=== PATIENT | male | born 1980 | race Caucasian/White ===

== ENCOUNTER 2019-05-27 05:29 | Inpatient (IN) | payer MEDICAID, OTHER ==
[~2019-05-27] VITALS: Ht 182.9 cm; Wt 158.0 kg
[2019-05-27] MEDS: PROPOFOL 100 ML IV PRN ×4 (07:30→23:55)
[2019-05-27] MEDS ORDERED: PROPOFOL 100 ML IV ONE ×2 (07:32→14:39)
[2019-05-27 08:05] LABS: FIO2 100 %
[2019-05-27 08:06] LABS: MEAN CORPUSCULAR HEMOGLOBIN 29.1 pg (27.5-34.5); MEAN CORPUSCULAR HGB CONC 31.4 g/dL (33.2-36.2); MEAN CORPUSCULAR VOLUME 92.5 fL (81-97); MEAN PLATELET VOLUME 9.2 fL (7.4-10.4); PLATELET COUNT 254 x10^3/uL (130-400); RED BLOOD COUNT 5.41 x10^6/uL (4.38-5.82); RED CELL DISTRIBUTION WIDTH 14.2 % (9.4-14.8)
[2019-05-27 08:20] LABS: ANION GAP 18 mmol/L (5-15); CALCIUM 9.4 mg/dL (8.5-10.1); CHLORIDE 102 mmol/L (98-107)
[2019-05-27 08:21] LABS: ALANINE AMINOTRANSFERASE 41 U/L (12-78); CREATININE 1.93 mg/dL (0.7-1.3)
[2019-05-27] MEDS ORDERED: MAGNESIUM SULFATE 1 GM/2 ML ONE (08:21)
[2019-05-27] MEDS ORDERED: SODIUM BICARB 8.4%, 50ML SYRINGE ONE ×3 (08:21→15:32)
[2019-05-27] MEDS ORDERED: EPINEPHRINE SYRINGE 0.1 MG/ML, 10ML ONE ×2 (08:21→15:32)
[2019-05-27 08:24] LABS: ALBUMIN 1.8 g/dL (3.4-5.0); ALKALINE PHOSPHATASE 248 U/L (45-117); BILIRUBIN,TOTAL 0.9 mg/dL (0.2-1.0); TOTAL PROTEIN 7.5 g/dL (6.4-8.2)
[2019-05-27] MEDS ORDERED: SODIUM BICARBONATE 8.4% 150 MEQ in DEXTROSE 5% 1,000 ML IV SCH ×2 (08:30→10:30)
[2019-05-27] MEDS ORDERED: MIDAZOLAM 1 MG/ML, 2ML IVPush ONE (08:30)
[2019-05-27] MEDS ORDERED: EPINEPHRINE 2 MG in SODIUM CHLORIDE 0.9% 248 ML IV PRN (08:30)
[2019-05-27] MEDS ORDERED: ROCURONIUM 10 MG/ML,10ML IVPush ONE (08:30)
[2019-05-27 08:35] LABS: MD YES
[2019-05-27 08:37] LABS: BAND#(MANUAL) 6.59 x10^3/uL; BANDS%(MANUAL) 18 % (0-7); LYMPH#(MANUAL) 2.93 x10^3/uL (1-3.4); LYMPHS% (MANUAL) 8 % (22-44); MONOS#(MANUAL) 1.46 x10^3/uL (0.3-2.7); MONOS% (MANUAL) 4 % (2-9); NRBC % (MANUAL) 3 % (0-1)
[2019-05-27 08:38] LABS: INTERNATIONAL NORMALIZED RATIO 1.08 (0.93-1.1); METAMYELOCYTES% (MANUAL) 1 % (0-1); PROTHROMBIN TIME 11.3 Seconds (9.6-11.5)
[2019-05-27 08:40] LABS: <PLATELET ESTIMATE> ADEQUATE; <PLT MORPHOLOGY> NORMAL PLT MORPH; OTHER CELLS # (MANUAL) 0.73 x10^3/uL (0-0); OTHER CELLS % (MANUAL) 2 % (0-0); SEGS% (MANUAL) 67 % (42-75)
[2019-05-27 08:41] LABS: <RBC MORPHOLOGY> NORMAL
[2019-05-27 08:57] LABS: MICROSCOPIC INDICATED
[2019-05-27] MEDS ORDERED: EPINEPHRINE 4 MG in SODIUM CHLORIDE 0.9% 246 ML IV PRN (09:00)
[2019-05-27] MEDS ORDERED: SODIUM CHLORIDE 0.9% 1,000ML IVBOLUS ONE (09:00)
[2019-05-27] MEDS ORDERED: VASOPRESSIN 100 UNIT in SODIUM CHLORIDE 0.9% 495 ML IV PRN (09:30)
[2019-05-27] MEDS ORDERED: NOREPINEPHRINE 4 MG in SODIUM CHLORIDE 0.9% 246 ML IV PRN (09:30)
[2019-05-27] MEDS ORDERED: EPINEPHRINE 8 MG in SODIUM CHLORIDE 0.9% 242 ML IV PRN (09:42)
[2019-05-27] MEDS ORDERED: PHARMACY MAY ADJ FOR RENAL FX MC PRN (10:00)
[2019-05-27] MEDS ORDERED: ENOXAPARIN 40 MG/0.4 ML SQ SCH (10:00)
[2019-05-27] MEDS ORDERED: MAGNESIUM SULFATE PMX 2GM/50ML 50 ML IV ONE ×2 (10:00→17:00)
[2019-05-27] MEDS ORDERED: MAGNESIUM SULFATE PMX 2GM/50ML 50 ML IVPB ONE (10:00)
[2019-05-27] MEDS ORDERED: PLEASE ENTER HEIGHT AND WEIGHT MC SCH (10:00)
[2019-05-27 10:43] LABS: ANION GAP 20 mmol/L (5-15); CALCIUM 9.1 mg/dL (8.5-10.1); CHLORIDE 102 mmol/L (98-107); CREATININE 2.37 mg/dL (0.7-1.3)
[2019-05-27 10:47] LABS: TROPONIN I 0.065 ng/mL (0.000-0.045)
[2019-05-27] MEDS: REGULAR INSULIN 62.5 UNITS in SODIUM CHLORIDE 0.9% 249.375 ML IV PRN ×3 (10:54→19:40)
[2019-05-27] MEDS ORDERED: KSCALE TO 4.5 IV SCH (11:00)
[2019-05-27] MEDS ORDERED: POTASSIUM CHLORIDE 40 MEQ in SODIUM CHLORIDE 0.9% 100 ML IV ONE ×2 (11:00→20:30)
[2019-05-27] MEDS: PIPERACILLIN/TAZO/PMX 3.375GM 50 ML IV SCH ×3 (11:04→21:59)
[2019-05-27] MEDS: STERILE WATER IV SCH ×2 (12:18→18:34)
[2019-05-27] MEDS: SODIUM BICARBONATE IV SCH ×2 (12:18→18:34)
[2019-05-27 12:28] LABS: AMPHETAMINE SCREEN, URINE Negative (Negative); BARBITURATE SCREEN, URINE Negative (Negative); BENZODIAZEPINE SCREEN, URINE Negative (Negative); CANNABINOID SCREEN, URINE Negative (Negative); COCAINE SCREEN, URINE Negative (Negative); METHADONE SCREEN, URINE Negative (Negative); OPIATE SCREEN, URINE Negative (Negative)
[2019-05-27] MEDS ORDERED: SODIUM CHLORIDE 0.9%, 500ML IVBOLUS ONE (12:30)
[2019-05-27] MEDS ORDERED: EPINEPHRINE 1 MG in SODIUM CHLORIDE 0.9% 249 ML IV PRN (13:54)
[2019-05-27] MEDS ORDERED: SENNA 176 MG/5 ML ORAL SOL NG PRN (14:00)
[2019-05-27] MEDS: KSCALE TO 4.5 IV SCH ×3 (14:00→22:00)
[2019-05-27] MEDS ORDERED: SENNA/DOCUSATE TABLET NG PRN (14:00)
[2019-05-27] MEDS ORDERED: HEPARIN 5,000 UNITS/ML, 1ML SQ SCH (14:00)
[2019-05-27] MEDS ORDERED: ALBUTEROL/IPRATROPIUM 2.5MG/0.5MG, 3 ML INLINE SCH (14:00)
[2019-05-27] MEDS ORDERED: PHARMACY MAY ADJ FOR RENAL FX MC SCH (14:00)
[2019-05-27] MEDS ORDERED: BISACODYL 10 MG SUPP PR PRN (14:00)
[2019-05-27] MEDS ORDERED: ACETAMINOPHEN 650 MG/20.3 ML UDC ONE (14:01)
[2019-05-27] MEDS: ACETAMINOPHEN 650 MG/20.3 ML UDC PO PRN (14:11)
[2019-05-27 14:28] LABS: ANION GAP 18 mmol/L (5-15); CALCIUM 9.2 mg/dL (8.5-10.1); CHLORIDE 102 mmol/L (98-107); CREATININE 2.97 mg/dL (0.7-1.3)
[2019-05-27 14:35] LABS: TRIGLYCERIDES 370 mg/dL (50-200)
[2019-05-27] MEDS ORDERED: SODIUM CHLORIDE 0.9% IV PRN (15:00)
[2019-05-27] MEDS ORDERED: EPINEPHRINE IV PRN (15:00)
[2019-05-27] MEDS: FAMOTIDINE 20 MG/2 ML IV SCH (15:23)
[2019-05-27] MEDS ORDERED: POTASSIUM CHLORIDE 30 MEQ in SODIUM CHLORIDE 0.9% 100 ML IV ONE (15:30)
[2019-05-27] MEDS ORDERED: ROCURONIUM 10MG/ML,5ML ONE (15:32)
[2019-05-27] MEDS ORDERED: MIDAZOLAM 1 MG/ML, 5ML ONE (15:32)
[2019-05-27 16:18] LABS: SALICYLATE LEVEL 4.3 mg/dL (2.8-20.0)
[2019-05-27] MEDS: FENTANYL PF 100 MCG/2ML IVPush PRN (16:54)
[2019-05-27] MEDS: NOREPINEPHRINE 4 MG in SODIUM CHLORIDE 0.9% 246 ML IV PRN ×2 (17:16→20:30)
[2019-05-27 17:19] LABS: CREATININE,URINE RANDOM 39.3 mg/dL
[2019-05-27 18:51] LABS: ANION GAP 15 mmol/L (5-15); CALCIUM 9.2 mg/dL (8.5-10.1); CHLORIDE 104 mmol/L (98-107); CREATININE 3.47 mg/dL (0.7-1.3)
[2019-05-27] MEDS ORDERED: ACETAMINOPHEN 1,000 MG/100 ML IV IVPB ONE (20:30)
[2019-05-27 21:00] VITALS: BP 98/45
[2019-05-27] MEDS ORDERED: FAMOTIDINE 20 MG/2 ML IVPush SCH (21:00)
[2019-05-27] MEDS: PHENYLEPHRINE 20 MG in SODIUM CHLORIDE 0.9% 248 ML IV PRN (22:00)
[2019-05-27 22:14] LABS: ANION GAP 13 mmol/L (5-15); CALCIUM 9.1 mg/dL (8.5-10.1); CHLORIDE 105 mmol/L (98-107); CREATININE 3.93 mg/dL (0.7-1.3)
[2019-05-27] MEDS: NOREPINEPHRINE 16 MG in SODIUM CHLORIDE 0.9% 234 ML IV PRN (23:02)
[2019-05-28] MEDS: STERILE WATER IV SCH ×2 (00:58→07:38)
[2019-05-28] MEDS: SODIUM BICARBONATE IV SCH ×2 (00:58→07:38)
[2019-05-28] MEDS: REGULAR INSULIN 62.5 UNITS in SODIUM CHLORIDE 0.9% 249.375 ML IV PRN ×3 (01:52→13:44)
[2019-05-28 02:00] LABS: ANION GAP 13 mmol/L (5-15); CHLORIDE 106 mmol/L (98-107); CREATININE 4.31 mg/dL (0.7-1.3)
[2019-05-28] MEDS: ACETAMINOPHEN 650 MG SUPP PR PRN (02:15)
[2019-05-28] MEDS: FAMOTIDINE 20 MG/2 ML IV SCH ×2 (02:16→14:02)
[2019-05-28] MEDS ORDERED: POTASSIUM CHLORIDE PMX 100 ML IV ONE ×6 (02:30→22:30)
[2019-05-28] MEDS: KSCALE TO 4.5 IV SCH ×6 (02:45→22:00)
[2019-05-28 04:00] VITALS: BP 107/47
[2019-05-28 04:07] LABS: MEAN CORPUSCULAR HEMOGLOBIN 30.6 pg (27.5-34.5); MEAN CORPUSCULAR HGB CONC 33.4 g/dL (33.2-36.2); MEAN CORPUSCULAR VOLUME 91.7 fL (81-97); MEAN PLATELET VOLUME 9.1 fL (7.4-10.4); PLATELET COUNT 189 x10^3/uL (130-400); RED BLOOD COUNT 5.07 x10^6/uL (4.38-5.82); RED CELL DISTRIBUTION WIDTH 14.4 % (9.4-14.8)
[2019-05-28 04:11] LABS: MD YES
[2019-05-28 04:20] LABS: ALANINE AMINOTRANSFERASE 185 U/L (12-78); ALBUMIN 1.6 g/dL (3.4-5.0); ANION GAP 15 mmol/L (5-15); CALCIUM 9.1 mg/dL (8.5-10.1); CHLORIDE 105 mmol/L (98-107); CREATININE 4.59 mg/dL (0.7-1.3)
[2019-05-28] MEDS: PHENYLEPHRINE 20 MG in SODIUM CHLORIDE 0.9% 248 ML IV PRN ×3 (04:20→20:05)
[2019-05-28] MEDS: PROPOFOL 100 ML IV PRN ×4 (04:20→15:27)
[2019-05-28] MEDS: PIPERACILLIN/TAZO/PMX 3.375GM 50 ML IV SCH ×4 (04:20→22:05)
[2019-05-28 04:23] LABS: ALKALINE PHOSPHATASE 167 U/L (45-117); BILIRUBIN,TOTAL 1.3 mg/dL (0.2-1.0); HDL CHOLESTEROL (DIRECT) 10 mg/dL (40-60); TOTAL PROTEIN 6.4 g/dL (6.4-8.2); TRIGLYCERIDES 249 mg/dL (50-200); VLDL CHOLESTEROL 50 mg/dL (0-25)
[2019-05-28 04:24] LABS: <PLATELET ESTIMATE> ADEQUATE; <PLT MORPHOLOGY> NORMAL PLT MORPH; <RBC MORPHOLOGY> NORMAL; BAND#(MANUAL) 4.23 x10^3/uL; BANDS%(MANUAL) 18 % (0-7); LYMPH#(MANUAL) 0.94 x10^3/uL (1-3.4); LYMPHS% (MANUAL) 4 % (22-44); METAMYELOCYTES# (MANUAL) 0.24 x10^3/uL (0-0); METAMYELOCYTES% (MANUAL) 1 % (0-1); MONOS#(MANUAL) 2.59 x10^3/uL (0.3-2.7); MONOS% (MANUAL) 11 % (2-9); NRBC % (MANUAL) 3 % (0-1); SEG#(MANUAL) 15.51 x10^3/uL (1.8-6.8); SEGS% (MANUAL) 66 % (42-75)
[2019-05-28 04:31] LABS: CHOLESTEROL, TOTAL 80 mg/dL (140-239); HDL CHOL % 13 % (26-37); LDL CHOLESTEROL,CALCULATED 20 mg/dL (54-169)
[2019-05-28] MEDS: NOREPINEPHRINE 16 MG in SODIUM CHLORIDE 0.9% 234 ML IV PRN ×2 (06:24→14:24)
[2019-05-28] MEDS: HEPARIN 5,000 UNITS/ML, 1ML SQ SCH ×2 (08:47→17:21)
[2019-05-28] MEDS ORDERED: SODIUM CHLORIDE 0.9% IV ONE (09:00)
[2019-05-28] MEDS ORDERED: POTASSIUM PHOSPHATE IV ONE (09:00)
[2019-05-28] MEDS: ACETAMINOPHEN 650 MG/20.3 ML UDC PO PRN ×3 (09:20→22:25)
[2019-05-28] MEDS: SODIUM BICARBONATE 8.4% 150 MEQ in DEXTROSE 5% 1,000 ML IV SCH ×2 (10:04→17:22)
[2019-05-28 10:34] LABS: ANION GAP 15 mmol/L (5-15); CALCIUM 8.7 mg/dL (8.5-10.1); CHLORIDE 106 mmol/L (98-107); CREATININE 5.25 mg/dL (0.7-1.3)
[2019-05-28] MEDS: LINEZOLID PMX 600MG/300ML 300 ML IV SCH (12:29)
[2019-05-28 14:39] LABS: ANION GAP 16 mmol/L (5-15); CALCIUM 8.5 mg/dL (8.5-10.1); CHLORIDE 104 mmol/L (98-107); CREATININE 5.77 mg/dL (0.7-1.3)
[2019-05-28] MEDS: REGULAR INSULIN 125 UNITS in SODIUM CHLORIDE 0.9% 248.75 ML IV PRN ×2 (15:45→20:06)
[2019-05-28 19:02] LABS: ANION GAP 12 mmol/L (5-15); CALCIUM 8.3 mg/dL (8.5-10.1); CHLORIDE 106 mmol/L (98-107); CREATININE 6.15 mg/dL (0.7-1.3)
[2019-05-28 22:22] LABS: ANION GAP 11 mmol/L (5-15); CALCIUM 8.3 mg/dL (8.5-10.1); CHLORIDE 105 mmol/L (98-107); CREATININE 5.36 mg/dL (0.7-1.3)
[2019-05-28] MEDS: PHENYLEPHRINE 40 MG in SODIUM CHLORIDE 0.9% 246 ML IV PRN (23:55)
[2019-05-29] MEDS: NOREPINEPHRINE 16 MG in SODIUM CHLORIDE 0.9% 234 ML IV PRN ×3 (00:14→18:47)
[2019-05-29] MEDS: LINEZOLID PMX 600MG/300ML 300 ML IV SCH ×2 (00:14→20:41)
[2019-05-29] MEDS: HEPARIN 5,000 UNITS/ML, 1ML SQ SCH ×3 (00:15→16:31)
[2019-05-29] MEDS: KSCALE TO 4.5 IV SCH ×6 (02:00→22:20)
[2019-05-29] MEDS: SODIUM BICARBONATE 8.4% 150 MEQ in DEXTROSE 5% 1,000 ML IV SCH ×2 (02:16→10:50)
[2019-05-29 02:30] LABS: MEAN CORPUSCULAR HEMOGLOBIN 30.5 pg (27.5-34.5); MEAN CORPUSCULAR HGB CONC 33.4 g/dL (33.2-36.2); MEAN CORPUSCULAR VOLUME 91.1 fL (81-97); MEAN PLATELET VOLUME 8.9 fL (7.4-10.4); PLATELET COUNT 130 x10^3/uL (130-400); RED BLOOD COUNT 4.83 x10^6/uL (4.38-5.82); RED CELL DISTRIBUTION WIDTH 14.9 % (9.4-14.8)
[2019-05-29 02:36] LABS: MD YES
[2019-05-29 02:41] LABS: ANION GAP 12 mmol/L (5-15); CALCIUM 8.3 mg/dL (8.5-10.1); CHLORIDE 102 mmol/L (98-107); CREATININE 5.54 mg/dL (0.7-1.3)
[2019-05-29 03:07] LABS: BAND#(MANUAL) 0.65 x10^3/uL; BANDS%(MANUAL) 3 % (0-7); LYMPH#(MANUAL) 2.17 x10^3/uL (1-3.4); LYMPHS% (MANUAL) 10 % (22-44); METAMYELOCYTES# (MANUAL) 0.87 x10^3/uL (0-0); METAMYELOCYTES% (MANUAL) 4 % (0-1); MONOS#(MANUAL) 2.17 x10^3/uL (0.3-2.7); MONOS% (MANUAL) 10 % (2-9); MYELOCYTES# (MANUAL) 0.22 x10^3/uL (0-0); MYELOCYTES% (MANUAL) 1 % (0-0); SEG#(MANUAL) 15.62 x10^3/uL (1.8-6.8); SEGS% (MANUAL) 72 % (42-75)
[2019-05-29 03:08] LABS: <PLATELET ESTIMATE> DECREASED; <PLT MORPHOLOGY> NORMAL PLT MORPH; <RBC MORPHOLOGY> NORMAL; NRBC % (MANUAL) 1 % (0-1)
[2019-05-29 03:09] LABS: TOXIC GRAN 1+
[2019-05-29] MEDS ORDERED: POTASSIUM CHLORIDE PMX 100 ML IV ONE ×2 (03:30→15:00)
[2019-05-29] MEDS: PIPERACILLIN/TAZO/PMX 3.375GM 50 ML IV SCH ×3 (03:56→19:30)
[2019-05-29 04:13] VITALS: BP 105/56
[2019-05-29] MEDS: VASOPRESSIN 100 UNIT in SODIUM CHLORIDE 0.9% 495 ML IV PRN (04:23)
[2019-05-29] MEDS: PHENYLEPHRINE 40 MG in SODIUM CHLORIDE 0.9% 246 ML IV PRN ×3 (06:16→22:24)
[2019-05-29] MEDS: REGULAR INSULIN 125 UNITS in SODIUM CHLORIDE 0.9% 248.75 ML IV PRN (06:17)
[2019-05-29 06:22] LABS: ANION GAP 11 mmol/L (5-15); CALCIUM 8.1 mg/dL (8.5-10.1); CHLORIDE 103 mmol/L (98-107); CREATININE 6.14 mg/dL (0.7-1.3)
[2019-05-29] MEDS ORDERED: SODIUM BICARB 8.4%, 50ML SYRINGE IVPush ONE ×3 (07:30→22:30)
[2019-05-29] MEDS: FAMOTIDINE 20 MG/2 ML IV SCH (07:54)
[2019-05-29] MEDS: ALBUMIN HUMAN 25% 100 ML IV SCH ×4 (10:09→18:25)
[2019-05-29 11:36] LABS: % IRON SATURATION 75 % (20-55); ANION GAP 15 mmol/L (5-15); CHLORIDE 102 mmol/L (98-107); CREATININE 6.37 mg/dL (0.7-1.3); IRON LEVEL 75 mcg/dL (65-175); TOTAL IRON BINDING CAPACITY 100 mcg/dL (250-450)
[2019-05-29 12:11] LABS: ABSOLUTE RETICS # 0.039 x10^6/uL (0.5-1.5); RED BLOOD COUNT 4.66 x10^6/uL (4.38-5.82); RETICULOCYTE COUNT % 0.84 % (0.5-1.5)
[2019-05-29 14:03] LABS: ANION GAP 12 mmol/L (5-15); CALCIUM 8.1 mg/dL (8.5-10.1); CHLORIDE 103 mmol/L (98-107); CREATININE 5.32 mg/dL (0.7-1.3)
[2019-05-29] MEDS ORDERED: PLEASE ENTER HEIGHT AND WEIGHT MC SCH (15:00)
[2019-05-29] MEDS: PLEASE ENTER HEIGHT MC SCH ×2 (16:00→17:00)
[2019-05-29 17:53] LABS: ANION GAP 15 mmol/L (5-15); CALCIUM 8.2 mg/dL (8.5-10.1); CHLORIDE 102 mmol/L (98-107); CREATININE 4.68 mg/dL (0.7-1.3)
[2019-05-29] MEDS ORDERED: FENTANYL PF 2,500 MCG in SODIUM CHLORIDE 0.9% 200 ML IV PRN (18:30)
[2019-05-29] MEDS ORDERED: SODIUM BICARBONATE 1 MEQ/ML, 50ML VIAL IVPush ONE (18:30)
[2019-05-29] MEDS: ACETAMINOPHEN 650 MG/20.3 ML UDC PO PRN (20:41)
[2019-05-29 22:12] LABS: ANION GAP 18 mmol/L (5-15); CALCIUM 7.9 mg/dL (8.5-10.1); CHLORIDE 102 mmol/L (98-107); CREATININE 5.29 mg/dL (0.7-1.3)
[2019-05-30] MEDS: HEPARIN 5,000 UNITS/ML, 1ML SQ SCH ×3 (01:03→17:00)
[2019-05-30] MEDS: PIPERACILLIN/TAZO/PMX 3.375GM 50 ML IV SCH ×4 (01:52→18:56)
[2019-05-30 02:30] LABS: ANION GAP 16 mmol/L (5-15); CALCIUM 7.7 mg/dL (8.5-10.1); CHLORIDE 103 mmol/L (98-107); CREATININE 5.91 mg/dL (0.7-1.3)
[2019-05-30] MEDS: KSCALE TO 4.5 IV SCH ×6 (02:52→22:00)
[2019-05-30] MEDS ORDERED: POTASSIUM CHLORIDE PMX 100 ML IV ONE (03:00)
[2019-05-30 04:00] VITALS: BP 104/58
[2019-05-30 04:20] LABS: MEAN CORPUSCULAR HEMOGLOBIN 29.8 pg (27.5-34.5); MEAN CORPUSCULAR VOLUME 90.3 fL (81-97); PLATELET COUNT 88 x10^3/uL (130-400); RED BLOOD COUNT 4.52 x10^6/uL (4.38-5.82); RED CELL DISTRIBUTION WIDTH 14.6 % (9.4-14.8)
[2019-05-30 04:25] LABS: ALANINE AMINOTRANSFERASE 163 U/L (12-78); ALBUMIN 2.3 g/dL (3.4-5.0); ANION GAP 15 mmol/L (5-15); CALCIUM 7.7 mg/dL (8.5-10.1); CHLORIDE 105 mmol/L (98-107); CREATININE 6.12 mg/dL (0.7-1.3)
[2019-05-30 04:53] LABS: ALKALINE PHOSPHATASE 116 U/L (45-117); BILIRUBIN,TOTAL 2.2 mg/dL (0.2-1.0); TOTAL PROTEIN 6.1 g/dL (6.4-8.2)
[2019-05-30 05:22] LABS: CREATINE KINASE, TOTAL 12047 U/L (39-308)
[2019-05-30 05:34] LABS: MD YES
[2019-05-30 05:36] LABS: BAND#(MANUAL) 3.11 x10^3/uL; BANDS%(MANUAL) 15 % (0-7); LYMPH#(MANUAL) 3.52 x10^3/uL (1-3.4); LYMPHS% (MANUAL) 17 % (22-44); MONOS#(MANUAL) 0.21 x10^3/uL (0.3-2.7); MONOS% (MANUAL) 1 % (2-9); MYELOCYTES# (MANUAL) 0.21 x10^3/uL (0-0); MYELOCYTES% (MANUAL) 1 % (0-0); SEG#(MANUAL) 13.66 x10^3/uL (1.8-6.8); SEGS% (MANUAL) 66 % (42-75)
[2019-05-30 05:38] LABS: <RBC MORPHOLOGY> NORMAL; TOXIC GRAN 1+
[2019-05-30 05:39] LABS: <PLATELET ESTIMATE> DECREASED; <PLT MORPHOLOGY> NORMAL PLT MORPH
[2019-05-30] MEDS: NOREPINEPHRINE 16 MG in SODIUM CHLORIDE 0.9% 234 ML IV PRN ×2 (06:14→18:31)
[2019-05-30] MEDS: REGULAR INSULIN 125 UNITS in SODIUM CHLORIDE 0.9% 248.75 ML IV PRN (06:15)
[2019-05-30 06:26] LABS: ANION GAP 14 mmol/L (5-15); CALCIUM 7.7 mg/dL (8.5-10.1); CHLORIDE 104 mmol/L (98-107); CREATININE 6.46 mg/dL (0.7-1.3)
[2019-05-30] MEDS: FLUCONAZOLE 200 MG/100 ML 100 ML IV SCH (08:47)
[2019-05-30] MEDS ORDERED: PHARMACOKINETIC MONITORING MC PRN (09:30)
[2019-05-30] MEDS ORDERED: VANCOMYCIN 2,000 MG in SODIUM CHLORIDE 0.9% 500 ML IV ONE (09:30)
[2019-05-30] MEDS ORDERED: VANCOMYCIN PER PHARMACY MC PRN (09:30)
[2019-05-30] MEDS: FAMOTIDINE 20 MG/2 ML IV SCH (09:50)
[2019-05-30 10:15] LABS: ANION GAP 17 mmol/L (5-15); CHLORIDE 104 mmol/L (98-107)
[2019-05-30 10:16] LABS: CREATININE 5.12 mg/dL (0.7-1.3)
[2019-05-30 12:24] LABS: CHLORIDE 105 mmol/L (98-107)
[2019-05-30 12:59] LABS: ANION GAP 18 mmol/L (5-15); CALCIUM 8.1 mg/dL (8.5-10.1); CREATININE 4.86 mg/dL (0.7-1.3)
[2019-05-30 13:55] LABS: CREATINE KINASE, TOTAL 20734 U/L (39-308)
[2019-05-30 18:05] LABS: ANION GAP 16 mmol/L (5-15); CALCIUM 8.6 mg/dL (8.5-10.1); CHLORIDE 103 mmol/L (98-107); CREATININE 4.56 mg/dL (0.7-1.3)
[2019-05-30] MEDS: VASOPRESSIN 100 UNIT in SODIUM CHLORIDE 0.9% 495 ML IV PRN (18:31)
[2019-05-30 19:05] LABS: CREATINE KINASE, TOTAL 25163 U/L (39-308)
[2019-05-30 22:31] LABS: ANION GAP 19 mmol/L (5-15); CALCIUM 8.2 mg/dL (8.5-10.1); CHLORIDE 103 mmol/L (98-107); CREATININE 5.32 mg/dL (0.7-1.3)
[2019-05-31 00:31] LABS: ANION GAP 19 mmol/L (5-15); CALCIUM 7.9 mg/dL (8.5-10.1); CHLORIDE 103 mmol/L (98-107)
[2019-05-31] MEDS: PIPERACILLIN/TAZO/PMX 3.375GM 50 ML IV SCH ×4 (01:35→21:36)
[2019-05-31] MEDS: HEPARIN 5,000 UNITS/ML, 1ML SQ SCH ×3 (01:40→16:40)
[2019-05-31] MEDS: KSCALE TO 4.5 IV SCH ×2 (02:00→06:00)
[2019-05-31 02:02] LABS: CREATINE KINASE, TOTAL 29297 U/L (39-308)
[2019-05-31] MEDS: PHENYLEPHRINE 40 MG in SODIUM CHLORIDE 0.9% 246 ML IV PRN (02:14)
[2019-05-31 04:00] VITALS: BP 90/53
[2019-05-31 05:17] LABS: ALANINE AMINOTRANSFERASE 231 U/L (12-78); ALBUMIN 2.2 g/dL (3.4-5.0); ANION GAP 20 mmol/L (5-15); CALCIUM 7.4 mg/dL (8.5-10.1); CHLORIDE 103 mmol/L (98-107)
[2019-05-31 05:19] LABS: ALKALINE PHOSPHATASE 235 U/L (45-117); BILIRUBIN,TOTAL 2.3 mg/dL (0.2-1.0); MEAN CORPUSCULAR HEMOGLOBIN 30.6 pg (27.5-34.5); MEAN CORPUSCULAR VOLUME 92.7 fL (81-97); MEAN PLATELET VOLUME 10.6 fL (7.4-10.4); PLATELET COUNT 128 x10^3/uL (130-400); RED BLOOD COUNT 4.63 x10^6/uL (4.38-5.82); RED CELL DISTRIBUTION WIDTH 15.2 % (9.4-14.8); TOTAL PROTEIN 6.7 g/dL (6.4-8.2)
[2019-05-31 05:48] LABS: MD YES
[2019-05-31 05:50] LABS: ANISOCYTOSIS 1+; BAND#(MANUAL) 5.29 x10^3/uL; BANDS%(MANUAL) 12 % (0-7); LYMPH#(MANUAL) 3.09 x10^3/uL (1-3.4); LYMPHS% (MANUAL) 7 % (22-44); METAMYELOCYTES# (MANUAL) 0.44 x10^3/uL (0-0); METAMYELOCYTES% (MANUAL) 1 % (0-1); MONOS#(MANUAL) 2.65 x10^3/uL (0.3-2.7); MONOS% (MANUAL) 6 % (2-9); MYELOCYTES# (MANUAL) 1.32 x10^3/uL (0-0); MYELOCYTES% (MANUAL) 3 % (0-0); SEG#(MANUAL) 31.31 x10^3/uL (1.8-6.8); SEGS% (MANUAL) 71 % (42-75)
[2019-05-31 05:51] LABS: <PLATELET ESTIMATE> DECREASED
[2019-05-31 05:52] LABS: <PLT MORPHOLOGY> NORMAL PLT MORPH; TOXIC GRAN 1+
[2019-05-31] MEDS ORDERED: SODIUM BICARB 8.4%, 50ML SYRINGE IVPush ONE (06:30)
[2019-05-31] MEDS: FLUCONAZOLE 200 MG/100 ML 100 ML IV SCH (08:34)
[2019-05-31] MEDS: FAMOTIDINE 20 MG/2 ML IV SCH (08:34)
[2019-05-31 11:44] LABS: ANION GAP 14 mmol/L (5-15); CHLORIDE 103 mmol/L (98-107); CREATININE 4.76 mg/dL (0.7-1.3)
[2019-05-31] MEDS: REGULAR INSULIN 125 UNITS in SODIUM CHLORIDE 0.9% 248.75 ML IV PRN (12:19)
[2019-05-31 17:07] LABS: ANION GAP 12 mmol/L (5-15); CALCIUM 8.1 mg/dL (8.5-10.1); CHLORIDE 103 mmol/L (98-107); CREATININE 3.82 mg/dL (0.7-1.3)
[2019-05-31] MEDS ORDERED: VANCOMYCIN 2,000 MG in SODIUM CHLORIDE 0.9% 250 ML IV ONE (20:00)
[2019-05-31] MEDS ORDERED: VANCOMYCIN 2,000 MG in SODIUM CHLORIDE 0.9% 500 ML IV ONE (20:00)
[2019-05-31 22:39] LABS: ANION GAP 14 mmol/L (5-15); CALCIUM 7.5 mg/dL (8.5-10.1); CHLORIDE 100 mmol/L (98-107)
[2019-05-31 23:07] LABS: CREATININE 4.24 mg/dL (0.7-1.3)
[2019-05-31 23:58] LABS: CREATINE KINASE, TOTAL 36771 U/L (39-308)
[2019-06-01] MEDS: ACETAMINOPHEN 650 MG SUPP PR PRN (00:54)
[2019-06-01] MEDS: PIPERACILLIN/TAZO/PMX 3.375GM 50 ML IV SCH ×3 (00:54→17:08)
[2019-06-01] MEDS: HEPARIN 5,000 UNITS/ML, 1ML SQ SCH ×3 (00:54→17:10)
[2019-06-01] MEDS: REGULAR INSULIN 125 UNITS in SODIUM CHLORIDE 0.9% 248.75 ML IV PRN ×2 (01:51→10:59)
[2019-06-01 04:23] VITALS: BP 95/45
[2019-06-01 04:30] LABS: ALBUMIN 1.9 g/dL (3.4-5.0); ANION GAP 14 mmol/L (5-15); CALCIUM 6.9 mg/dL (8.5-10.1); CHLORIDE 101 mmol/L (98-107)
[2019-06-01 04:35] LABS: MEAN CORPUSCULAR HEMOGLOBIN 30.4 pg (27.5-34.5); MEAN CORPUSCULAR HGB CONC 33.6 g/dL (33.2-36.2); MEAN CORPUSCULAR VOLUME 90.6 fL (81-97); RED BLOOD COUNT 4.31 x10^6/uL (4.38-5.82); RED CELL DISTRIBUTION WIDTH 15.5 % (9.4-14.8)
[2019-06-01 04:58] LABS: ALANINE AMINOTRANSFERASE 256 U/L (12-78); ALKALINE PHOSPHATASE 178 U/L (45-117); BILIRUBIN,TOTAL 1.4 mg/dL (0.2-1.0); CREATININE 4.96 mg/dL (0.7-1.3); TOTAL PROTEIN 6.2 g/dL (6.4-8.2)
[2019-06-01 05:13] LABS: MD YES; MEAN PLATELET VOLUME 10.2 fL (7.4-10.4); PLATELET COUNT 93 x10^3/uL (130-400)
[2019-06-01 05:16] LABS: BAND#(MANUAL) 0.81 x10^3/uL; BANDS%(MANUAL) 3 % (0-7); LYMPH#(MANUAL) 2.17 x10^3/uL (1-3.4); LYMPHS% (MANUAL) 8 % (22-44); MONOS#(MANUAL) 0.54 x10^3/uL (0.3-2.7); MONOS% (MANUAL) 2 % (2-9); SEG#(MANUAL) 23.58 x10^3/uL (1.8-6.8); SEGS% (MANUAL) 87 % (42-75)
[2019-06-01 05:17] LABS: <PLATELET ESTIMATE> DECREASED; ANISOCYTOSIS 1+; LARGE PLATELETS 1+
[2019-06-01 06:03] LABS: CREATINE KINASE, TOTAL 44219 U/L (39-308)
[2019-06-01] MEDS: FAMOTIDINE 20 MG/2 ML IV SCH (09:05)
[2019-06-01] MEDS: NOREPINEPHRINE 16 MG in SODIUM CHLORIDE 0.9% 234 ML IV PRN (09:39)
[2019-06-01] MEDS: FLUCONAZOLE 200 MG/100 ML 100 ML IV SCH (09:57)
[2019-06-01] MEDS ORDERED: TPN PER PHARMACY MC SCH (10:00)
[2019-06-01] MEDS: ALBUMIN HUMAN 25% 100 ML IV SCH ×3 (14:10→23:04)
[2019-06-01 15:38] LABS: ANION GAP 12 mmol/L (5-15); CALCIUM 7.2 mg/dL (8.5-10.1); CHLORIDE 102 mmol/L (98-107)
[2019-06-01] MEDS ORDERED: MIDAZOLAM 1 MG/ML, 2ML ONE (15:45)
[2019-06-01] MEDS ORDERED: FENTANYL PF 100 MCG/2ML IV ONE (16:00)
[2019-06-01] MEDS ORDERED: MIDAZOLAM 1 MG/ML, 2ML IVPush ONE (16:00)
[2019-06-01] MEDS ORDERED: DEXTROSE 50%, 50ML SYRINGE IVPush PRN (17:00)
[2019-06-01] MEDS ORDERED: FAT EMUL IV SCH (17:00)
[2019-06-01] MEDS ORDERED: SMOF TPN IV SCH (17:00)
[2019-06-01] MEDS ORDERED: FILTER, DISP 1.2 MICRON FOR TPN/PVN IV PRN (17:00)
[2019-06-01] MEDS ORDERED: AMINO ACID 10% IV SCH (17:00)
[2019-06-01] MEDS ORDERED: DEXTROSE 10% 500 ML IV PRN (17:00)
[2019-06-01] MEDS ORDERED: [UNRECOGNIZED DRUG - OTHER] IV SCH (17:00)
[2019-06-01] MEDS ORDERED: DEXTROSE 70% IV SCH (17:00)
[2019-06-01] MEDS ORDERED: PROPOFOL 100 ML IV PRN (18:30)
[2019-06-01] MEDS: PROPOFOL 100 ML IV PRN ×2 (19:46→23:42)
[2019-06-01 22:23] LABS: ANION GAP 10 mmol/L (5-15); CALCIUM 7.7 mg/dL (8.5-10.1); CHLORIDE 100 mmol/L (98-107); CREATININE 3.57 mg/dL (0.7-1.3)
[2019-06-02] MEDS ORDERED: DILTIAZEM 125 MG in SODIUM CHLORIDE 0.9% 100 ML IV PRN (00:30)
[2019-06-02] MEDS: PIPERACILLIN/TAZO/PMX 3.375GM 50 ML IV SCH ×2 (02:03→07:43)
[2019-06-02] MEDS: HEPARIN 5,000 UNITS/ML, 1ML SQ SCH ×3 (02:04→16:07)
[2019-06-02] MEDS: ALBUMIN HUMAN 25% 100 ML IV SCH (02:40)
[2019-06-02 04:00] VITALS: BP 110/55
[2019-06-02] MEDS: PROPOFOL 100 ML IV PRN (04:16)
[2019-06-02 05:01] LABS: MEAN CORPUSCULAR HEMOGLOBIN 30.8 pg (27.5-34.5); MEAN CORPUSCULAR HGB CONC 33.3 g/dL (33.2-36.2); MEAN CORPUSCULAR VOLUME 92.3 fL (81-97); MEAN PLATELET VOLUME 11.1 fL (7.4-10.4); PLATELET COUNT 110 x10^3/uL (130-400); RED BLOOD COUNT 3.77 x10^6/uL (4.38-5.82); RED CELL DISTRIBUTION WIDTH 15.4 % (9.4-14.8)
[2019-06-02 05:08] LABS: ALBUMIN 2.6 g/dL (3.4-5.0); ANION GAP 12 mmol/L (5-15); CHLORIDE 99 mmol/L (98-107); TRIGLYCERIDES 576 mg/dL (50-200)
[2019-06-02] MEDS ORDERED: MORPHINE SULFATE 4 MG/ML, 1ML ONE (05:22)
[2019-06-02 05:37] LABS: ALANINE AMINOTRANSFERASE 247 U/L (12-78); ALKALINE PHOSPHATASE 138 U/L (45-117); BILIRUBIN,TOTAL 1.5 mg/dL (0.2-1.0); CREATININE 4.46 mg/dL (0.7-1.3); PREALBUMIN 8.4 mg/dL (20.0-40.0); TOTAL PROTEIN 6.4 g/dL (6.4-8.2)
[2019-06-02 05:43] LABS: MD YES
[2019-06-02 05:44] LABS: BAND#(MANUAL) 1.08 x10^3/uL; BANDS%(MANUAL) 5 % (0-7); METAMYELOCYTES# (MANUAL) 0.65 x10^3/uL (0-0); METAMYELOCYTES% (MANUAL) 3 % (0-1); MONOS#(MANUAL) 0.65 x10^3/uL (0.3-2.7); MONOS% (MANUAL) 3 % (2-9); MYELOCYTES# (MANUAL) 0.22 x10^3/uL (0-0); MYELOCYTES% (MANUAL) 1 % (0-0); NRBC % (MANUAL) 1 % (0-1)
[2019-06-02 05:45] LABS: LYMPH#(MANUAL) 2.15 x10^3/uL (1-3.4); LYMPHS% (MANUAL) 10 % (22-44); SEG#(MANUAL) 16.77 x10^3/uL (1.8-6.8); SEGS% (MANUAL) 78 % (42-75); TOXIC GRAN 1+
[2019-06-02 05:46] LABS: <PLATELET ESTIMATE> DECREASED; ANISOCYTOSIS 1+; LARGE PLATELETS 1+
[2019-06-02] MEDS: REGULAR INSULIN 125 UNITS in SODIUM CHLORIDE 0.9% 248.75 ML IV PRN ×3 (05:56→18:33)
[2019-06-02 06:32] LABS: CREATINE KINASE, TOTAL 37214 U/L (39-308)
[2019-06-02] MEDS: FAMOTIDINE 20 MG/2 ML IV SCH (07:44)
[2019-06-02] MEDS: FLUCONAZOLE 200 MG/100 ML 100 ML IV SCH (08:33)
[2019-06-02] MEDS: DEXMEDETOMIDINE 1,000 MCG in SODIUM CHLORIDE 0.9% 240 ML IV PRN ×4 (08:37→18:33)
[2019-06-02] MEDS: NOREPINEPHRINE 16 MG in SODIUM CHLORIDE 0.9% 234 ML IV PRN (08:37)
[2019-06-02 10:48] LABS: MICROSCOPIC INDICATED
[2019-06-02] MEDS ORDERED: AMIODARONE 150 MG in DEXTROSE 5% 100 ML IV ONE (11:00)
[2019-06-02] MEDS ORDERED: FILTER 0.22 MICRON FOR AMIODARONE IV PRN (11:30)
[2019-06-02] MEDS: AMIODARONE 900 MG in DEXTROSE 5% 482 ML IV PRN (12:00)
[2019-06-02] MEDS: CEFAZOLIN 2,000 MG in SODIUM CHLORIDE 0.9% 50 ML IV SCH (12:01)
[2019-06-02 12:36] LABS: FIO2 40 %
--- NOTE | 2019-06-02 13:49 | NUR ---
TF Recommendations: Vital High Protein at 10ml/hr
[2019-06-02] MEDS ORDERED: LIDOCAINE-MPF 1%, 5ML ONE (14:19)
[2019-06-02] MEDS ORDERED: VASOPRESSIN 100 UNIT in SODIUM CHLORIDE 0.9% 495 ML IV PRN (16:00)
[2019-06-02] MEDS ORDERED: AMINO ACID 10% IV SCH (17:00)
[2019-06-02] MEDS ORDERED: [UNRECOGNIZED DRUG - OTHER] IV SCH (17:00)
[2019-06-02] MEDS ORDERED: DEXTROSE 70% IV SCH (17:00)
[2019-06-02] MEDS ORDERED: FILTER, DISP 1.2 MICRON FOR TPN/PVN IV PRN (17:00)
[2019-06-02] MEDS ORDERED: SODIUM CHLORIDE IV SCH (17:00)
[2019-06-02] MEDS ORDERED: FILTER 0.22 MICRON IV PRN (22:00)
[2019-06-02] MEDS ORDERED: AMIODARONE IN D5W 100 ML IV ONE (22:00)
[2019-06-02] MEDS ORDERED: ALBUMIN HUMAN 25% 100 ML IV ONE (23:30)
[2019-06-02] MEDS ORDERED: ALBUMIN HUMAN 25% 100 ML ONE (23:33)
[2019-06-03] MEDS: CEFAZOLIN 2,000 MG in SODIUM CHLORIDE 0.9% 50 ML IV SCH ×2 (00:39→11:38)
[2019-06-03] MEDS: HEPARIN 5,000 UNITS/ML, 1ML SQ SCH ×3 (02:03→15:34)
[2019-06-03] MEDS: DEXMEDETOMIDINE 1,000 MCG in SODIUM CHLORIDE 0.9% 240 ML IV PRN ×4 (02:03→19:36)
[2019-06-03 03:58] LABS: CALCIUM 8.1 mg/dL (8.5-10.1); CHLORIDE 100 mmol/L (98-107)
[2019-06-03 04:00] VITALS: BP 128/64
[2019-06-03 04:20] LABS: MEAN CORPUSCULAR HEMOGLOBIN 30.5 pg (27.5-34.5); MEAN CORPUSCULAR HGB CONC 33.5 g/dL (33.2-36.2); MEAN CORPUSCULAR VOLUME 91.2 fL (81-97); MEAN PLATELET VOLUME 11.8 fL (7.4-10.4); PLATELET COUNT 147 x10^3/uL (130-400); RED BLOOD COUNT 3.94 x10^6/uL (4.38-5.82); RED CELL DISTRIBUTION WIDTH 15.1 % (9.4-14.8)
[2019-06-03 04:29] LABS: ANION GAP 11 mmol/L (5-15); CREATININE 3.48 mg/dL (0.7-1.3)
[2019-06-03] MEDS: AMIODARONE 900 MG in DEXTROSE 5% 482 ML IV PRN ×2 (04:39→20:53)
[2019-06-03 04:41] LABS: CREATINE KINASE, TOTAL 25552 U/L (39-308)
[2019-06-03 05:24] LABS: MD YES
[2019-06-03 05:51] LABS: BAND#(MANUAL) 1.81 x10^3/uL; BANDS%(MANUAL) 6 % (0-7); EOS% (MANUAL) 2 % (1-7); LYMPH#(MANUAL) 2.72 x10^3/uL (1-3.4); LYMPHS% (MANUAL) 9 % (22-44); METAMYELOCYTES# (MANUAL) 0.91 x10^3/uL (0-0); METAMYELOCYTES% (MANUAL) 3 % (0-1); MONOS#(MANUAL) 1.21 x10^3/uL (0.3-2.7); MONOS% (MANUAL) 4 % (2-9); MYELOCYTES% (MANUAL) 2 % (0-0); NRBC % (MANUAL) 1 % (0-1); SEG#(MANUAL) 22.35 x10^3/uL (1.8-6.8); SEGS% (MANUAL) 74 % (42-75)
[2019-06-03 05:52] LABS: ANISOCYTOSIS 1+; POLYCHROMASIA 1+; TOXIC GRAN 1+
[2019-06-03 05:53] LABS: <PLATELET ESTIMATE> ADEQUATE; LARGE PLATELETS 1+; PMNS WITH VACUOLES 1+
[2019-06-03] MEDS: REGULAR INSULIN 125 UNITS in SODIUM CHLORIDE 0.9% 248.75 ML IV PRN ×2 (10:07→19:36)
[2019-06-03] MEDS: CEFUROXIME 1.5 GM in SODIUM CHLORIDE 0.9% 100 ML IV SCH ×2 (14:32→21:33)
[2019-06-03] MEDS ORDERED: STERILE WATER IV SCH (17:00)
[2019-06-03] MEDS ORDERED: FILTER, DISP 1.2 MICRON FOR TPN/PVN IV PRN (17:00)
[2019-06-03] MEDS ORDERED: [UNRECOGNIZED DRUG - OTHER] IV SCH (17:00)
[2019-06-03] MEDS ORDERED: DEXTROSE 70% IV SCH (17:00)
[2019-06-03] MEDS ORDERED: AMINO ACID 10% IV SCH (17:00)
[2019-06-04] MEDS: DEXMEDETOMIDINE 1,000 MCG in SODIUM CHLORIDE 0.9% 240 ML IV PRN ×4 (01:38→18:44)
[2019-06-04] MEDS: HEPARIN 5,000 UNITS/ML, 1ML SQ SCH ×3 (01:40→15:45)
[2019-06-04] MEDS: REGULAR INSULIN 125 UNITS in SODIUM CHLORIDE 0.9% 248.75 ML IV PRN ×3 (02:36→18:44)
[2019-06-04 04:00] VITALS: BP 126/67
[2019-06-04 04:36] LABS: MEAN CORPUSCULAR HEMOGLOBIN 29.3 pg (27.5-34.5); MEAN CORPUSCULAR HGB CONC 31.8 g/dL (33.2-36.2); MEAN CORPUSCULAR VOLUME 92.3 fL (81-97); MEAN PLATELET VOLUME 10.3 fL (7.4-10.4); PLATELET COUNT 139 x10^3/uL (130-400); RED BLOOD COUNT 3.66 x10^6/uL (4.38-5.82)
[2019-06-04 04:48] LABS: CHLORIDE 102 mmol/L (98-107)
[2019-06-04 05:00] LABS: ALANINE AMINOTRANSFERASE 154 U/L (12-78); ALKALINE PHOSPHATASE 106 U/L (45-117); ANION GAP 8 mmol/L (5-15); BILIRUBIN,TOTAL 0.8 mg/dL (0.2-1.0); CALCIUM 8.3 mg/dL (8.5-10.1); CREATININE 2.79 mg/dL (0.7-1.3); TOTAL PROTEIN 6.1 g/dL (6.4-8.2)
[2019-06-04] MEDS: CEFUROXIME 1.5 GM in SODIUM CHLORIDE 0.9% 100 ML IV SCH (05:33)
[2019-06-04 05:36] LABS: MD YES
[2019-06-04 05:38] LABS: ANISOCYTOSIS 1+; BAND#(MANUAL) 1.29 x10^3/uL; BANDS%(MANUAL) 5 % (0-7); EOS#(MANUAL) 0.26 x10^3/uL (0.0-0.4); EOS% (MANUAL) 1 % (1-7); LYMPH#(MANUAL) 2.84 x10^3/uL (1-3.4); LYMPHS% (MANUAL) 11 % (22-44); METAMYELOCYTES# (MANUAL) 1.81 x10^3/uL (0-0); METAMYELOCYTES% (MANUAL) 7 % (0-1); MONOS#(MANUAL) 1.55 x10^3/uL (0.3-2.7); MONOS% (MANUAL) 6 % (2-9); MYELOCYTES# (MANUAL) 0.26 x10^3/uL (0-0); MYELOCYTES% (MANUAL) 1 % (0-0); POLYCHROMASIA 1+; SEGS% (MANUAL) 69 % (42-75)
[2019-06-04 05:39] LABS: <PLATELET ESTIMATE> ADEQUATE; LARGE PLATELETS 1+; PMNS WITH VACUOLES 1+
[2019-06-04 05:42] LABS: TOXIC GRAN 1+
[2019-06-04] MEDS: ALBUMIN HUMAN 25% 100 ML IV SCH ×3 (08:05→20:31)
[2019-06-04] MEDS ORDERED: AMIODARONE 900 MG in DEXTROSE 5% 482 ML IV PRN (08:30)
[2019-06-04] MEDS: HYDROCORTISONE 100 MG INJ. IV SCH ×3 (09:16→22:22)
[2019-06-04] MEDS: CEFUROXIME 1.5 GM in SODIUM CHLORIDE 0.9% 50 ML IV SCH ×2 (12:29→22:22)
[2019-06-04] MEDS ORDERED: FAT EMULSIONS IV SCH (17:00)
[2019-06-04] MEDS ORDERED: AMINO ACID 10% IV SCH (17:00)
[2019-06-04] MEDS ORDERED: [UNRECOGNIZED DRUG - OTHER] IV SCH (17:00)
[2019-06-04] MEDS ORDERED: DEXTROSE 70% IV SCH (17:00)
[2019-06-05] MEDS: HEPARIN 5,000 UNITS/ML, 1ML SQ SCH ×3 (01:31→16:27)
[2019-06-05] MEDS: ALBUMIN HUMAN 25% 100 ML IV SCH (01:41)
[2019-06-05] MEDS: DEXMEDETOMIDINE 1,000 MCG in SODIUM CHLORIDE 0.9% 240 ML IV PRN ×3 (02:29→19:48)
[2019-06-05] MEDS: REGULAR INSULIN 125 UNITS in SODIUM CHLORIDE 0.9% 248.75 ML IV PRN (02:29)
[2019-06-05 04:00] VITALS: BP 115/62
[2019-06-05] MEDS: HYDROCORTISONE 100 MG INJ. IV SCH ×2 (04:13→16:27)
[2019-06-05] MEDS: CEFUROXIME 1.5 GM in SODIUM CHLORIDE 0.9% 50 ML IV SCH (04:58)
[2019-06-05 05:03] LABS: HCT (SEDRATE) 28.4 % (39.2-51.8); MEAN CORPUSCULAR HEMOGLOBIN 30.8 pg (27.5-34.5); MEAN CORPUSCULAR HGB CONC 32.8 g/dL (33.2-36.2); MEAN PLATELET VOLUME 10.9 fL (7.4-10.4); PLATELET COUNT 137 x10^3/uL (130-400); RED BLOOD COUNT 3.05 x10^6/uL (4.38-5.82); RED CELL DISTRIBUTION WIDTH 14.9 % (9.4-14.8)
[2019-06-05 05:09] LABS: CHLORIDE 103 mmol/L (98-107)
[2019-06-05 05:17] LABS: ALANINE AMINOTRANSFERASE 76 U/L (12-78); ALBUMIN 2.7 g/dL (3.4-5.0); ALKALINE PHOSPHATASE 78 U/L (45-117); ANION GAP 10 mmol/L (5-15); CALCIUM 8.1 mg/dL (8.5-10.1); CREATININE 3.32 mg/dL (0.7-1.3); TOTAL PROTEIN 6.3 g/dL (6.4-8.2)
[2019-06-05 05:24] LABS: C-REACTIVE PROTEIN, QUANT 4.7 mg/dL (0.02-0.49)
[2019-06-05 05:36] LABS: MD YES
[2019-06-05 05:37] LABS: BAND#(MANUAL) 1.25 x10^3/uL; BANDS%(MANUAL) 6 % (0-7); METAMYELOCYTES# (MANUAL) 0.62 x10^3/uL (0-0); METAMYELOCYTES% (MANUAL) 3 % (0-1); MONOS#(MANUAL) 1.04 x10^3/uL (0.3-2.7); MONOS% (MANUAL) 5 % (2-9); MYELOCYTES# (MANUAL) 0.21 x10^3/uL (0-0); MYELOCYTES% (MANUAL) 1 % (0-0)
[2019-06-05 05:39] LABS: ANISOCYTOSIS 1+; LYMPH#(MANUAL) 1.46 x10^3/uL (1-3.4); LYMPHS% (MANUAL) 7 % (22-44); NRBC % (MANUAL) 1 % (0-1); SEG#(MANUAL) 16.22 x10^3/uL (1.8-6.8); SEGS% (MANUAL) 78 % (42-75)
[2019-06-05 05:40] LABS: <PLATELET ESTIMATE> ADEQUATE; LARGE PLATELETS 1+; POLYCHROMASIA 1+
[2019-06-05] MEDS: INSULIN LISPRO 100 UNITS/ML, PEN SQ-INSULIN SCH ×4 (08:00→21:02)
[2019-06-05] MEDS: INSULIN GLARGINE 100 UNITS/ML, PEN SQ-INSULIN SCH ×2 (08:49→21:01)
[2019-06-05] MEDS: CEFTRIAXONE PMX 2GM/50ML 50 ML IV SCH ×2 (09:03→21:01)
[2019-06-05] MEDS: [UNRECOGNIZED DRUG - OTHER] IV SCH (16:28)
[2019-06-05] MEDS: DEXTROSE 70% IV SCH (16:28)
[2019-06-05] MEDS: FAT EMULSIONS IV SCH (16:28)
[2019-06-05] MEDS: AMINO ACID 10% IV SCH (16:28)
[2019-06-05] MEDS ORDERED: PROPOFOL 100 ML IV ONE (17:00)
[2019-06-06] MEDS: FENTANYL PF 100 MCG/2ML IVPush PRN (01:31)
[2019-06-06] MEDS: HEPARIN 5,000 UNITS/ML, 1ML SQ SCH ×2 (01:32→07:57)
[2019-06-06] MEDS: HYDROCORTISONE 100 MG INJ. IV SCH ×2 (03:27→15:24)
[2019-06-06] MEDS: INSULIN LISPRO 100 UNITS/ML, PEN SQ-INSULIN SCH ×4 (03:27→20:16)
[2019-06-06] MEDS: DEXMEDETOMIDINE 1,000 MCG in SODIUM CHLORIDE 0.9% 240 ML IV PRN ×3 (03:42→20:18)
[2019-06-06 04:00] VITALS: BP 125/82
[2019-06-06 05:42] LABS: MEAN CORPUSCULAR HEMOGLOBIN 30.1 pg (27.5-34.5); MEAN CORPUSCULAR HGB CONC 32.6 g/dL (33.2-36.2); MEAN CORPUSCULAR VOLUME 92.2 fL (81-97); MEAN PLATELET VOLUME 10.8 fL (7.4-10.4); PLATELET COUNT 169 x10^3/uL (130-400); RED BLOOD COUNT 3.27 x10^6/uL (4.38-5.82); RED CELL DISTRIBUTION WIDTH 14.5 % (9.4-14.8)
[2019-06-06 05:43] LABS: CALCIUM 7.9 mg/dL (8.5-10.1); CHLORIDE 101 mmol/L (98-107)
[2019-06-06 05:46] LABS: ANION GAP 14 mmol/L (5-15); CREATININE 3.73 mg/dL (0.7-1.3)
[2019-06-06 06:06] LABS: MD YES
[2019-06-06 06:09] LABS: <PLATELET ESTIMATE> ADEQUATE; ANISOCYTOSIS 1+; BAND#(MANUAL) 0.94 x10^3/uL; BANDS%(MANUAL) 6 % (0-7); LYMPH#(MANUAL) 0.63 x10^3/uL (1-3.4); LYMPHS% (MANUAL) 4 % (22-44); METAMYELOCYTES# (MANUAL) 0.94 x10^3/uL (0-0); METAMYELOCYTES% (MANUAL) 6 % (0-1); MONOS#(MANUAL) 1.57 x10^3/uL (0.3-2.7); MONOS% (MANUAL) 10 % (2-9); MYELOCYTES# (MANUAL) 0.16 x10^3/uL (0-0); MYELOCYTES% (MANUAL) 1 % (0-0); POLYCHROMASIA 1+; SEG#(MANUAL) 11.46 x10^3/uL (1.8-6.8); SEGS% (MANUAL) 73 % (42-75)
[2019-06-06 06:10] LABS: LARGE PLATELETS 1+
[2019-06-06] MEDS: INSULIN GLARGINE 100 UNITS/ML, PEN SQ-INSULIN SCH ×2 (07:52→20:16)
[2019-06-06] MEDS: CEFTRIAXONE PMX 2GM/50ML 50 ML IV SCH ×2 (07:54→22:07)
[2019-06-06] MEDS ORDERED: INSULIN GLARGINE 100 UNITS/ML, PEN SQ-INSULIN ONE (08:30)
[2019-06-06] MEDS: HEPARIN 25,000 UNITS/500ML PMX 500 ML IV PRN (13:17)
[2019-06-06] MEDS ORDERED: HEPARIN 5,000 UNITS/ML, 1ML IV ONE (14:00)
[2019-06-06] MEDS: [UNRECOGNIZED DRUG - OTHER] IV SCH (15:36)
[2019-06-06] MEDS: AMINO ACID 10% IV SCH (15:36)
[2019-06-06] MEDS: DEXTROSE 70% IV SCH (15:36)
[2019-06-06] MEDS: FAT EMULSIONS IV SCH (15:36)
[2019-06-06] MEDS: HEPARIN 5,000 UNITS/ML, 1ML IV PRN (22:07)
[2019-06-07 04:00] VITALS: BP 90/53
[2019-06-07] MEDS: DEXMEDETOMIDINE 1,000 MCG in SODIUM CHLORIDE 0.9% 240 ML IV PRN ×3 (04:19→18:33)
[2019-06-07] MEDS: HYDROCORTISONE 100 MG INJ. IV SCH ×2 (04:21→15:05)
[2019-06-07] MEDS: INSULIN LISPRO 100 UNITS/ML, PEN SQ-INSULIN SCH ×4 (04:25→21:02)
[2019-06-07 04:38] LABS: MEAN CORPUSCULAR HEMOGLOBIN 30.1 pg (27.5-34.5); MEAN CORPUSCULAR HGB CONC 32.4 g/dL (33.2-36.2); MEAN CORPUSCULAR VOLUME 92.8 fL (81-97); PLATELET COUNT 185 x10^3/uL (130-400); RED BLOOD COUNT 3.48 x10^6/uL (4.38-5.82)
[2019-06-07 04:46] LABS: ANION GAP 13 mmol/L (5-15); CALCIUM 8.1 mg/dL (8.5-10.1); CHLORIDE 101 mmol/L (98-107); CREATININE 3.93 mg/dL (0.7-1.3)
[2019-06-07] MEDS: HEPARIN 25,000 UNITS/500ML PMX 500 ML IV PRN ×2 (05:29→18:33)
[2019-06-07 05:39] LABS: MD YES
[2019-06-07 05:40] LABS: BAND#(MANUAL) 0.44 x10^3/uL; BANDS%(MANUAL) 3 % (0-7); EOS#(MANUAL) 0.15 x10^3/uL (0.0-0.4); EOS% (MANUAL) 1 % (1-7); LYMPH#(MANUAL) 1.17 x10^3/uL (1-3.4); LYMPHS% (MANUAL) 8 % (22-44); METAMYELOCYTES# (MANUAL) 0.29 x10^3/uL (0-0); METAMYELOCYTES% (MANUAL) 2 % (0-1); MONOS#(MANUAL) 1.02 x10^3/uL (0.3-2.7); MONOS% (MANUAL) 7 % (2-9); MYELOCYTES# (MANUAL) 0.15 x10^3/uL (0-0); MYELOCYTES% (MANUAL) 1 % (0-0); SEG#(MANUAL) 11.39 x10^3/uL (1.8-6.8); SEGS% (MANUAL) 78 % (42-75)
[2019-06-07 05:41] LABS: <PLATELET ESTIMATE> ADEQUATE; ANISOCYTOSIS 1+; POLYCHROMASIA 1+
[2019-06-07 05:42] LABS: LARGE PLATELETS 1+
[2019-06-07] MEDS: INSULIN GLARGINE 100 UNITS/ML, PEN SQ-INSULIN SCH ×2 (08:32→21:03)
[2019-06-07] MEDS: CEFTRIAXONE PMX 2GM/50ML 50 ML IV SCH ×2 (08:34→20:54)
[2019-06-07] MEDS: ALBUMIN HUMAN 25% 100 ML IV PRN (10:23)
[2019-06-07] MEDS: FENTANYL PF 100 MCG/2ML IVPush PRN ×2 (11:35→22:12)
[2019-06-07] MEDS: HEPARIN 5,000 UNITS/ML, 1ML IV PRN ×2 (13:29→20:08)
[2019-06-07] MEDS: ALBUMIN HUMAN 25% 100 ML IV SCH (16:32)
[2019-06-08] MEDS: ALBUMIN HUMAN 25% 100 ML IV SCH ×3 (00:14→15:03)
[2019-06-08] MEDS: DEXMEDETOMIDINE 1,000 MCG in SODIUM CHLORIDE 0.9% 240 ML IV PRN ×3 (02:08→22:49)
[2019-06-08] MEDS: INSULIN LISPRO 100 UNITS/ML, PEN SQ-INSULIN SCH ×4 (02:18→20:39)
[2019-06-08] MEDS: HEPARIN 5,000 UNITS/ML, 1ML IV PRN ×3 (02:39→23:09)
[2019-06-08] MEDS: FENTANYL PF 100 MCG/2ML IVPush PRN ×2 (02:58→08:18)
[2019-06-08] MEDS: HYDROCORTISONE 100 MG INJ. IV SCH (03:22)
[2019-06-08 04:07] VITALS: BP 115/67
[2019-06-08 04:17] LABS: MEAN CORPUSCULAR HGB CONC 32.2 g/dL (33.2-36.2); MEAN PLATELET VOLUME 9.6 fL (7.4-10.4); PLATELET COUNT 195 x10^3/uL (130-400); RED BLOOD COUNT 3.42 x10^6/uL (4.38-5.82)
[2019-06-08 04:29] LABS: ANION GAP 11 mmol/L (5-15); CHLORIDE 100 mmol/L (98-107); CREATININE 3.84 mg/dL (0.7-1.3); TRIGLYCERIDES 203 mg/dL (50-200)
[2019-06-08 05:16] LABS: MD YES
[2019-06-08 05:18] LABS: LYMPH#(MANUAL) 2.28 x10^3/uL (1-3.4); LYMPHS% (MANUAL) 15 % (22-44); SEG#(MANUAL) 12.92 x10^3/uL (1.8-6.8); SEGS% (MANUAL) 85 % (42-75)
[2019-06-08 05:21] LABS: ANISOCYTOSIS 1+; POLYCHROMASIA 1+
[2019-06-08 05:22] LABS: <PLATELET ESTIMATE> ADEQUATE; LARGE PLATELETS 1+
[2019-06-08] MEDS: HEPARIN 25,000 UNITS/500ML PMX 500 ML IV PRN ×2 (06:26→16:52)
[2019-06-08] MEDS ORDERED: FAMOTIDINE 20 MG TABLET ONE (07:47)
[2019-06-08] MEDS: FAMOTIDINE 40 MG/5 ML ORAL SUSP PO SCH (08:19)
[2019-06-08] MEDS ORDERED: MIDAZOLAM 1 MG/ML, 5ML ONE ×2 (08:42→09:08)
[2019-06-08] MEDS ORDERED: FAMOTIDINE 40 MG/5 ML ORAL SUSP PO SCH (09:00)
[2019-06-08] MEDS ORDERED: RISPERIDONE 1 MG TABLET PO SCH (09:00)
[2019-06-08] MEDS: CEFTRIAXONE PMX 2GM/50ML 50 ML IV SCH ×2 (09:20→20:36)
[2019-06-08] MEDS ORDERED: MIDAZOLAM 1 MG/ML, 5ML IVPush ONE (09:30)
[2019-06-08] MEDS ORDERED: FENTANYL PF 100 MCG/2ML IV ONE (09:30)
[2019-06-08] MEDS: INSULIN GLARGINE 100 UNITS/ML, PEN SQ-INSULIN SCH ×2 (09:36→22:53)
[2019-06-08] MEDS ORDERED: RISPERIDONE 1 MG TABLET ONE (15:00)
[2019-06-08] MEDS: RISPERIDONE 1 MG TABLET PO SCH (15:03)
[2019-06-08] MEDS: ACETAMINOPHEN 650 MG/20.3 ML UDC PO PRN (20:36)
[2019-06-09] MEDS: ALBUMIN HUMAN 25% 100 ML IV SCH ×3 (00:30→16:43)
[2019-06-09] MEDS: INSULIN LISPRO 100 UNITS/ML, PEN SQ-INSULIN SCH ×4 (02:50→20:46)
[2019-06-09] MEDS: HEPARIN 25,000 UNITS/500ML PMX 500 ML IV PRN ×3 (02:59→22:45)
[2019-06-09 04:19] VITALS: BP 98/48
[2019-06-09 05:11] LABS: ANION GAP 11 mmol/L (5-15); CALCIUM 8.1 mg/dL (8.5-10.1); CHLORIDE 101 mmol/L (98-107); CREATININE 3.92 mg/dL (0.7-1.3)
[2019-06-09 05:25] LABS: MEAN CORPUSCULAR HEMOGLOBIN 30.6 pg (27.5-34.5); MEAN CORPUSCULAR HGB CONC 32.7 g/dL (33.2-36.2); MEAN CORPUSCULAR VOLUME 93.7 fL (81-97); MEAN PLATELET VOLUME 9.4 fL (7.4-10.4); PLATELET COUNT 179 x10^3/uL (130-400); RED BLOOD COUNT 3.09 x10^6/uL (4.38-5.82); RED CELL DISTRIBUTION WIDTH 15.1 % (9.4-14.8)
[2019-06-09] MEDS: HEPARIN 5,000 UNITS/ML, 1ML IV PRN ×3 (05:58→21:27)
[2019-06-09 06:22] LABS: MD YES
[2019-06-09 06:24] LABS: BAND#(MANUAL) 0.93 x10^3/uL; BANDS%(MANUAL) 8 % (0-7); LYMPH#(MANUAL) 1.62 x10^3/uL (1-3.4); LYMPHS% (MANUAL) 14 % (22-44); MONOS#(MANUAL) 1.28 x10^3/uL (0.3-2.7); MONOS% (MANUAL) 11 % (2-9); SEG#(MANUAL) 7.77 x10^3/uL (1.8-6.8); SEGS% (MANUAL) 67 % (42-75)
[2019-06-09 06:26] LABS: <PLATELET ESTIMATE> ADEQUATE; <PLT MORPHOLOGY> NORMAL PLT MORPH
[2019-06-09 06:27] LABS: ANISOCYTOSIS 1+; POLYCHROMASIA 1+
[2019-06-09] MEDS ORDERED: CALCIUM GLUCONATE IV ONE (10:00)
[2019-06-09] MEDS: FAMOTIDINE 40 MG/5 ML ORAL SUSP PO SCH (10:05)
[2019-06-09] MEDS: RISPERIDONE 1 MG TABLET PO SCH ×2 (10:09→20:46)
[2019-06-09] MEDS: INSULIN GLARGINE 100 UNITS/ML, PEN SQ-INSULIN SCH ×2 (10:17→20:47)
[2019-06-09] MEDS ORDERED: CALCIUM GLUCONATE 4.6 MEQ in SODIUM CHLORIDE 0.9% 50 ML IV ONE (10:30)
[2019-06-09] MEDS: DEXMEDETOMIDINE 1,000 MCG in SODIUM CHLORIDE 0.9% 240 ML IV PRN ×2 (10:52→19:27)
[2019-06-09] MEDS: FENTANYL PF 100 MCG/2ML IVPush PRN ×2 (12:42→18:37)
[2019-06-09] MEDS: CEFTRIAXONE PMX 2GM/50ML 50 ML IV SCH ×2 (13:16→20:46)
[2019-06-10] MEDS: ALBUMIN HUMAN 25% 100 ML IV SCH ×2 (00:39→08:17)
[2019-06-10] MEDS: INSULIN LISPRO 100 UNITS/ML, PEN SQ-INSULIN SCH ×4 (02:54→21:00)
[2019-06-10 03:17] LABS: ANION GAP 11 mmol/L (5-15); CALCIUM 8.2 mg/dL (8.5-10.1); CHLORIDE 100 mmol/L (98-107); CREATININE 3.63 mg/dL (0.7-1.3)
[2019-06-10 03:19] LABS: BASOPHILS # (AUTO) 0.03 x10^3/uL (0-0.1); BASOPHILS % (AUTO) 0 % (0-1); EOSINOPHILS % (AUTO) 0 % (1-7); LYMPHOCYTES # (AUTO) 0.94 x10^3/uL (1-3.4); LYMPHOCYTES % (AUTO) 12 % (22-44); MD NO; MEAN CORPUSCULAR HEMOGLOBIN 30.6 pg (27.5-34.5); MEAN CORPUSCULAR VOLUME 92.8 fL (81-97); MEAN PLATELET VOLUME 9.2 fL (7.4-10.4); MONOCYTES # (AUTO) 0.51 x10^3/uL (0.2-0.8); MONOCYTES % (AUTO) 6 % (2-9); NEUTROPHILS # (AUTO) 6.74 x10^3/uL (1.8-6.8); NEUTROPHILS % (AUTO) 82 % (42-75); PLATELET COUNT 183 x10^3/uL (130-400); RED BLOOD COUNT 3.02 x10^6/uL (4.38-5.82); RED CELL DISTRIBUTION WIDTH 15.1 % (9.4-14.8)
[2019-06-10] MEDS: HEPARIN 5,000 UNITS/ML, 1ML IV PRN ×2 (03:41→17:35)
[2019-06-10 04:00] VITALS: BP 131/65
[2019-06-10] MEDS: FENTANYL PF 100 MCG/2ML IVPush PRN ×2 (04:33→13:39)
[2019-06-10] MEDS ORDERED: MIDAZOLAM 1 MG/ML, 2ML ONE (04:50)
[2019-06-10] MEDS ORDERED: MIDAZOLAM 1 MG/ML, 2ML IVPush ONE (05:00)
[2019-06-10] MEDS: DEXMEDETOMIDINE 1,000 MCG in SODIUM CHLORIDE 0.9% 240 ML IV PRN ×3 (06:23→19:54)
[2019-06-10] MEDS: HEPARIN 25,000 UNITS/500ML PMX 500 ML IV PRN ×2 (09:24→19:16)
[2019-06-10] MEDS: FAMOTIDINE 40 MG/5 ML ORAL SUSP PO SCH (09:27)
[2019-06-10] MEDS: CEFTRIAXONE PMX 2GM/50ML 50 ML IV SCH ×3 (09:27→21:04)
[2019-06-10] MEDS: RISPERIDONE 1 MG TABLET PO SCH (09:28)
[2019-06-10] MEDS: INSULIN GLARGINE 100 UNITS/ML, PEN SQ-INSULIN SCH ×2 (09:41→21:04)
[2019-06-10] MEDS ORDERED: METOCLOPRAMIDE 5 MG/ML, 2ML IVPush PRN (16:30)
[2019-06-10] MEDS: METOCLOPRAMIDE 5 MG/ML, 2ML IVPush SCH ×2 (16:37→22:47)
[2019-06-10] MEDS: QUETIAPINE 25MG TABLET PO SCH ×2 (16:37→21:04)
[2019-06-11] MEDS: HEPARIN 5,000 UNITS/ML, 1ML IV PRN (00:09)
[2019-06-11] MEDS: DEXMEDETOMIDINE 1,000 MCG in SODIUM CHLORIDE 0.9% 240 ML IV PRN ×3 (01:26→21:12)
[2019-06-11 03:07] LABS: BASOPHILS # (AUTO) 0.08 x10^3/uL (0-0.1); BASOPHILS % (AUTO) 1 % (0-1); EOSINOPHILS # (AUTO) 0.03 x10^3/uL (0-0.4); EOSINOPHILS % (AUTO) 0 % (1-7); LYMPHOCYTES # (AUTO) 1.02 x10^3/uL (1-3.4); LYMPHOCYTES % (AUTO) 12 % (22-44); MD NO; MEAN CORPUSCULAR HEMOGLOBIN 30.7 pg (27.5-34.5); MEAN CORPUSCULAR HGB CONC 32.6 g/dL (33.2-36.2); MONOCYTES # (AUTO) 0.46 x10^3/uL (0.2-0.8); MONOCYTES % (AUTO) 5 % (2-9); NEUTROPHILS # (AUTO) 6.95 x10^3/uL (1.8-6.8); NEUTROPHILS % (AUTO) 81 % (42-75); PLATELET COUNT 197 x10^3/uL (130-400); RED BLOOD COUNT 3.17 x10^6/uL (4.38-5.82); RED CELL DISTRIBUTION WIDTH 16.1 % (9.4-14.8)
[2019-06-11 03:16] LABS: ALANINE AMINOTRANSFERASE 22 U/L (12-78); ALBUMIN 2.4 g/dL (3.4-5.0); ANION GAP 10 mmol/L (5-15); CALCIUM 8.4 mg/dL (8.5-10.1); CHLORIDE 102 mmol/L (98-107); TRIGLYCERIDES 178 mg/dL (50-200)
[2019-06-11 03:19] LABS: ALBUMIN 2.5 g/dL (3.4-5.0); ALKALINE PHOSPHATASE 53 U/L (45-117); BILIRUBIN,TOTAL 0.5 mg/dL (0.2-1.0)
[2019-06-11] MEDS: HEPARIN 25,000 UNITS/500ML PMX 500 ML IV PRN (03:24)
[2019-06-11] MEDS: INSULIN LISPRO 100 UNITS/ML, PEN SQ-INSULIN SCH ×4 (03:26→20:24)
[2019-06-11] MEDS: METOCLOPRAMIDE 5 MG/ML, 2ML IVPush SCH ×4 (04:58→22:58)
[2019-06-11 05:46] VITALS: BP 92/48
[2019-06-11] MEDS: ACETAMINOPHEN 650 MG/20.3 ML UDC PO PRN ×2 (06:26→20:26)
[2019-06-11] MEDS ORDERED: MIDODRINE 5 MG TABLET ONE (08:31)
[2019-06-11] MEDS: FAMOTIDINE 40 MG/5 ML ORAL SUSP PO SCH (08:35)
[2019-06-11] MEDS: QUETIAPINE 25MG TABLET PO SCH ×3 (08:37→20:27)
[2019-06-11] MEDS: MIDODRINE 5 MG TABLET PO SCH ×3 (08:38→20:27)
[2019-06-11] MEDS: CEFTRIAXONE PMX 2GM/50ML 50 ML IV SCH ×2 (08:48→20:26)
[2019-06-11] MEDS: INSULIN GLARGINE 100 UNITS/ML, PEN SQ-INSULIN SCH ×2 (08:59→20:25)
[2019-06-11 09:03] LABS: HCT (SEDRATE) 29.9 % (39.2-51.8)
[2019-06-11] MEDS: HEPARIN 5,000 UNITS/ML, 1ML SQ SCH ×2 (11:59→20:27)
[2019-06-12] MEDS: INSULIN LISPRO 100 UNITS/ML, PEN SQ-INSULIN SCH ×4 (03:39→20:44)
[2019-06-12 03:48] LABS: BASOPHILS # (AUTO) 0.05 x10^3/uL (0-0.1); BASOPHILS % (AUTO) 1 % (0-1); EOSINOPHILS # (AUTO) 0.02 x10^3/uL (0-0.4); EOSINOPHILS % (AUTO) 0 % (1-7); LYMPHOCYTES # (AUTO) 1.13 x10^3/uL (1-3.4); LYMPHOCYTES % (AUTO) 14 % (22-44); MD NO; MEAN CORPUSCULAR HEMOGLOBIN 30.7 pg (27.5-34.5); MEAN CORPUSCULAR HGB CONC 33.1 g/dL (33.2-36.2); MEAN CORPUSCULAR VOLUME 92.8 fL (81-97); MEAN PLATELET VOLUME 8.8 fL (7.4-10.4); MONOCYTES # (AUTO) 0.52 x10^3/uL (0.2-0.8); MONOCYTES % (AUTO) 7 % (2-9); NEUTROPHILS # (AUTO) 6.23 x10^3/uL (1.8-6.8); NEUTROPHILS % (AUTO) 78 % (42-75); PLATELET COUNT 190 x10^3/uL (130-400); RED BLOOD COUNT 3.25 x10^6/uL (4.38-5.82); RED CELL DISTRIBUTION WIDTH 15.3 % (9.4-14.8)
[2019-06-12] MEDS: METOCLOPRAMIDE 5 MG/ML, 2ML IVPush SCH ×4 (03:48→23:09)
[2019-06-12] MEDS: HEPARIN 5,000 UNITS/ML, 1ML SQ SCH ×3 (03:48→20:00)
[2019-06-12 03:58] LABS: ALBUMIN 2.3 g/dL (3.4-5.0); ANION GAP 10 mmol/L (5-15); CALCIUM 8.7 mg/dL (8.5-10.1); CHLORIDE 99 mmol/L (98-107); CREATININE 3.87 mg/dL (0.7-1.3)
[2019-06-12] MEDS: DEXMEDETOMIDINE 1,000 MCG in SODIUM CHLORIDE 0.9% 240 ML IV PRN ×3 (04:20→23:57)
[2019-06-12] MEDS: ACETAMINOPHEN 650 MG/20.3 ML UDC PO PRN (05:09)
[2019-06-12] MEDS: QUETIAPINE 25MG TABLET PO SCH ×3 (08:30→20:44)
[2019-06-12] MEDS: MIDODRINE 5 MG TABLET PO SCH ×3 (08:30→20:44)
[2019-06-12] MEDS: FAMOTIDINE 40 MG/5 ML ORAL SUSP PO SCH (08:30)
[2019-06-12] MEDS: LINEZOLID PMX 600MG/300ML 300 ML IV SCH ×2 (08:31→20:00)
[2019-06-12] MEDS: INSULIN GLARGINE 100 UNITS/ML, PEN SQ-INSULIN SCH ×2 (08:38→20:44)
[2019-06-12] MEDS: FENTANYL PF 100 MCG/2ML IVPush PRN ×5 (09:53→19:07)
[2019-06-12] MEDS ORDERED: KETOROLAC 30 MG/1 ML ONE (19:57)
[2019-06-12] MEDS ORDERED: KETOROLAC 30 MG/1 ML IVPush SCH (20:00)
[2019-06-12] MEDS ORDERED: KETOROLAC 30 MG/1 ML IVPush ONE (20:30)
[2019-06-12] MEDS: NOREPINEPHRINE 4 MG in SODIUM CHLORIDE 0.9% 246 ML IV PRN (21:27)
[2019-06-12] MEDS ORDERED: VASOPRESSIN 100 UNIT in SODIUM CHLORIDE 0.9% 495 ML IV PRN (21:30)
[2019-06-12] MEDS ORDERED: ALBUMIN HUMAN 25% 100 ML IV ONE (21:30)
[2019-06-12] MEDS ORDERED: PHENYLEPHRINE 10 MG in SODIUM CHLORIDE 0.9% 249 ML IV PRN (21:30)
[2019-06-13] MEDS: ACETAMINOPHEN 650 MG/20.3 ML UDC PO PRN ×3 (02:53→21:59)
[2019-06-13] MEDS: INSULIN LISPRO 100 UNITS/ML, PEN SQ-INSULIN SCH ×4 (03:49→22:21)
[2019-06-13] MEDS: HEPARIN 5,000 UNITS/ML, 1ML SQ SCH ×3 (03:49→20:13)
[2019-06-13] MEDS: METOCLOPRAMIDE 5 MG/ML, 2ML IVPush SCH ×4 (03:51→23:07)
[2019-06-13] MEDS: FENTANYL PF 100 MCG/2ML IVPush PRN ×5 (04:01→23:16)
[2019-06-13] MEDS: DEXMEDETOMIDINE 1,000 MCG in SODIUM CHLORIDE 0.9% 240 ML IV PRN ×4 (05:19→20:55)
[2019-06-13 05:58] LABS: BASOPHILS # (AUTO) 0.03 x10^3/uL (0-0.1); BASOPHILS % (AUTO) 0 % (0-1); EOSINOPHILS # (AUTO) 0.03 x10^3/uL (0-0.4); EOSINOPHILS % (AUTO) 0 % (1-7); LYMPHOCYTES # (AUTO) 1.04 x10^3/uL (1-3.4); LYMPHOCYTES % (AUTO) 13 % (22-44); MD NO; MEAN CORPUSCULAR HEMOGLOBIN 30.2 pg (27.5-34.5); MEAN CORPUSCULAR HGB CONC 32.9 g/dL (33.2-36.2); MEAN CORPUSCULAR VOLUME 91.6 fL (81-97); MEAN PLATELET VOLUME 9.3 fL (7.4-10.4); MONOCYTES # (AUTO) 0.72 x10^3/uL (0.2-0.8); MONOCYTES % (AUTO) 9 % (2-9); NEUTROPHILS # (AUTO) 6.13 x10^3/uL (1.8-6.8); NEUTROPHILS % (AUTO) 77 % (42-75); PLATELET COUNT 168 x10^3/uL (130-400); RED BLOOD COUNT 3.35 x10^6/uL (4.38-5.82); RED CELL DISTRIBUTION WIDTH 15.6 % (9.4-14.8)
[2019-06-13 06:04] LABS: ANION GAP 11 mmol/L (5-15); CALCIUM 8.7 mg/dL (8.5-10.1); CHLORIDE 100 mmol/L (98-107); CREATININE 3.94 mg/dL (0.7-1.3)
[2019-06-13] MEDS: LINEZOLID PMX 600MG/300ML 300 ML IV SCH ×2 (08:00→08:12)
[2019-06-13] MEDS: QUETIAPINE 25MG TABLET PO SCH (08:32)
[2019-06-13] MEDS: FAMOTIDINE 40 MG/5 ML ORAL SUSP PO SCH (08:32)
[2019-06-13] MEDS: MIDODRINE 5 MG TABLET PO SCH ×3 (08:32→21:59)
[2019-06-13] MEDS: INSULIN GLARGINE 100 UNITS/ML, PEN SQ-INSULIN SCH ×2 (08:47→22:21)
[2019-06-13] MEDS ORDERED: ERTAPENEM 0.5 GM in SODIUM CHLORIDE 0.9% 50 ML IV SCH (09:00)
[2019-06-13] MEDS ORDERED: CATHFLO-ALTEPLASE 2 MG/2 ML CATHFLUSH ONE (16:00)
[2019-06-13] MEDS: NOREPINEPHRINE 4 MG in SODIUM CHLORIDE 0.9% 246 ML IV PRN (18:44)
[2019-06-13] MEDS: MIDAZOLAM 1 MG/ML, 2ML IVPush PRN (23:16)
[2019-06-14] MEDS: DEXMEDETOMIDINE 1,000 MCG in SODIUM CHLORIDE 0.9% 240 ML IV PRN ×2 (00:29→04:32)
[2019-06-14] MEDS: ACETAMINOPHEN 650 MG/20.3 ML UDC PO PRN ×2 (02:11→06:14)
[2019-06-14] MEDS: FENTANYL PF 100 MCG/2ML IVPush PRN ×4 (02:11→18:12)
[2019-06-14] MEDS: MIDAZOLAM 1 MG/ML, 2ML IVPush PRN ×5 (02:12→13:19)
[2019-06-14 04:11] LABS: BASOPHILS # (AUTO) 0.06 x10^3/uL (0-0.1); BASOPHILS % (AUTO) 1 % (0-1); EOSINOPHILS # (AUTO) 0.08 x10^3/uL (0-0.4); EOSINOPHILS % (AUTO) 1 % (1-7); LYMPHOCYTES # (AUTO) 1.26 x10^3/uL (1-3.4); LYMPHOCYTES % (AUTO) 17 % (22-44); MD NO; MEAN CORPUSCULAR HEMOGLOBIN 30.6 pg (27.5-34.5); MEAN CORPUSCULAR HGB CONC 33.1 g/dL (33.2-36.2); MEAN CORPUSCULAR VOLUME 92.4 fL (81-97); MEAN PLATELET VOLUME 9.9 fL (7.4-10.4); MONOCYTES # (AUTO) 0.76 x10^3/uL (0.2-0.8); MONOCYTES % (AUTO) 10 % (2-9); NEUTROPHILS # (AUTO) 5.13 x10^3/uL (1.8-6.8); NEUTROPHILS % (AUTO) 71 % (42-75); PLATELET COUNT 155 x10^3/uL (130-400); RED BLOOD COUNT 3.45 x10^6/uL (4.38-5.82); RED CELL DISTRIBUTION WIDTH 15.4 % (9.4-14.8)
[2019-06-14 04:13] LABS: ALANINE AMINOTRANSFERASE 21 U/L (12-78); ALBUMIN 2.2 g/dL (3.4-5.0); ANION GAP 12 mmol/L (5-15); CALCIUM 8.3 mg/dL (8.5-10.1); CHLORIDE 103 mmol/L (98-107)
[2019-06-14 04:16] LABS: ALKALINE PHOSPHATASE 47 U/L (45-117); BILIRUBIN,TOTAL 0.4 mg/dL (0.2-1.0); CREATINE KINASE, TOTAL 191 U/L (39-308); CREATININE 4.46 mg/dL (0.7-1.3); TOTAL PROTEIN 6.3 g/dL (6.4-8.2); TRIGLYCERIDES 221 mg/dL (50-200)
[2019-06-14] MEDS: HEPARIN 5,000 UNITS/ML, 1ML SQ SCH ×3 (04:22→20:47)
[2019-06-14] MEDS: INSULIN LISPRO 100 UNITS/ML, PEN SQ-INSULIN SCH ×4 (04:37→21:47)
[2019-06-14] MEDS: METOCLOPRAMIDE 5 MG/ML, 2ML IVPush SCH (06:14)
[2019-06-14] MEDS: INSULIN GLARGINE 100 UNITS/ML, PEN SQ-INSULIN SCH ×2 (08:27→21:48)
[2019-06-14] MEDS: ALBUMIN HUMAN 25% 100 ML IV PRN (09:09)
[2019-06-14] MEDS ORDERED: VASOPRESSIN 100 UNIT in SODIUM CHLORIDE 0.9% 495 ML IV ONE (09:18)
[2019-06-14] MEDS ORDERED: FAMOTIDINE 20 MG TABLET ONE (09:22)
[2019-06-14] MEDS: MIDODRINE 5 MG TABLET PO SCH ×3 (09:25→20:47)
[2019-06-14] MEDS: FAMOTIDINE 40 MG/5 ML ORAL SUSP PO SCH (09:25)
[2019-06-14] MEDS ORDERED: VASOPRESSIN 100 UNIT in SODIUM CHLORIDE 0.9% 495 ML IV PRN (09:30)
[2019-06-14] MEDS ORDERED: PHENYLEPHRINE 20 MG in SODIUM CHLORIDE 0.9% 248 ML IV PRN (09:30)
[2019-06-14] MEDS ORDERED: NOREPINEPHRINE 4 MG in SODIUM CHLORIDE 0.9% 246 ML IV PRN (11:30)
[2019-06-14 13:50] LABS: BILIRUBIN, DIRECT 0.2 mg/dL (0.1-0.2)
[2019-06-14 13:54] LABS: BILIRUBIN,INDIRECT 0.4 mg/dL (0.0-2.0); BILIRUBIN,TOTAL 0.6 mg/dL (0.2-1.0)
[2019-06-14] MEDS: MIDAZOLAM HCL 50 MG in SODIUM CHLORIDE 0.9% 240 ML IV PRN ×2 (14:34→23:47)
[2019-06-15] MEDS: INSULIN LISPRO 100 UNITS/ML, PEN SQ-INSULIN SCH ×4 (03:57→21:18)
[2019-06-15] MEDS: HEPARIN 5,000 UNITS/ML, 1ML SQ SCH ×3 (04:01→20:08)
[2019-06-15] MEDS: FENTANYL PF 100 MCG/2ML IVPush PRN (04:01)
[2019-06-15 04:13] LABS: ANION GAP 15 mmol/L (5-15); CALCIUM 7.7 mg/dL (8.5-10.1); CHLORIDE 96 mmol/L (98-107); CREATININE 4.05 mg/dL (0.7-1.3)
[2019-06-15 04:31] LABS: MEAN CORPUSCULAR HEMOGLOBIN 30.6 pg (27.5-34.5); MEAN CORPUSCULAR HGB CONC 32.9 g/dL (33.2-36.2); MEAN CORPUSCULAR VOLUME 92.9 fL (81-97); MEAN PLATELET VOLUME 9.6 fL (7.4-10.4); PLATELET COUNT 115 x10^3/uL (130-400); RED BLOOD COUNT 3.39 x10^6/uL (4.38-5.82); RED CELL DISTRIBUTION WIDTH 15.4 % (9.4-14.8)
[2019-06-15 04:32] LABS: BASOPHILS # (AUTO) 0.03 x10^3/uL (0-0.1); BASOPHILS % (AUTO) 0 % (0-1); EOSINOPHILS % (AUTO) 0 % (1-7); LYMPHOCYTES # (AUTO) 1.28 x10^3/uL (1-3.4); LYMPHOCYTES % (AUTO) 13 % (22-44); MD SCAN; MONOCYTES # (AUTO) 0.79 x10^3/uL (0.2-0.8); MONOCYTES % (AUTO) 8 % (2-9); NEUTROPHILS # (AUTO) 8.08 x10^3/uL (1.8-6.8); NEUTROPHILS % (AUTO) 79 % (42-75)
[2019-06-15] MEDS: MIDODRINE 5 MG TABLET PO SCH ×3 (08:43→21:16)
[2019-06-15] MEDS: FAMOTIDINE 40 MG/5 ML ORAL SUSP PO SCH (08:44)
[2019-06-15] MEDS: INSULIN GLARGINE 100 UNITS/ML, PEN SQ-INSULIN SCH ×2 (10:12→21:19)
[2019-06-15] MEDS: MIDAZOLAM HCL 50 MG in SODIUM CHLORIDE 0.9% 240 ML IV PRN ×2 (10:13→22:17)
[2019-06-15] MEDS ORDERED: FENTANYL PF 250 MCG/5ML ONE (12:59)
[2019-06-15] MEDS ORDERED: LIDOCAINE 1%-EPI 1:100K, 20ML ONE (12:59)
[2019-06-15] MEDS ORDERED: CEFAZOLIN 1,000 MG ONE (13:56)
[2019-06-15] MEDS ORDERED: VASOPRESSIN 20 UNIT/ML, 1ML ONE (13:56)
[2019-06-15 19:31] LABS: TROPONIN I 0.037 ng/mL (0.000-0.045)
[2019-06-16 03:21] LABS: MEAN CORPUSCULAR HEMOGLOBIN 30.7 pg (27.5-34.5); MEAN CORPUSCULAR HGB CONC 33.4 g/dL (33.2-36.2); MEAN CORPUSCULAR VOLUME 91.9 fL (81-97); RED CELL DISTRIBUTION WIDTH 15.7 % (9.4-14.8)
[2019-06-16 03:28] LABS: ANION GAP 16 mmol/L (5-15); CHLORIDE 95 mmol/L (98-107); CREATININE 3.71 mg/dL (0.7-1.3)
[2019-06-16 03:34] LABS: MD YES; MEAN PLATELET VOLUME 9.7 fL (7.4-10.4); PLATELET COUNT 92 x10^3/uL (130-400)
[2019-06-16 03:36] LABS: <PLATELET ESTIMATE> DECREASED; <PLT MORPHOLOGY> NORMAL PLT MORPH; ANISOCYTOSIS 1+; BANDS%(MANUAL) 4 % (0-7); LYMPH#(MANUAL) 1.12 x10^3/uL (1-3.4); LYMPHS% (MANUAL) 9 % (22-44); MONOS#(MANUAL) 0.25 x10^3/uL (0.3-2.7); MONOS% (MANUAL) 2 % (2-9); SEG#(MANUAL) 10.54 x10^3/uL (1.8-6.8); SEGS% (MANUAL) 85 % (42-75)
[2019-06-16] MEDS: INSULIN LISPRO 100 UNITS/ML, PEN SQ-INSULIN SCH ×4 (03:55→20:51)
[2019-06-16] MEDS: HEPARIN 5,000 UNITS/ML, 1ML SQ SCH ×3 (03:55→19:44)
[2019-06-16] MEDS: INSULIN GLARGINE 100 UNITS/ML, PEN SQ-INSULIN SCH ×3 (09:00→20:51)
[2019-06-16] MEDS: FAMOTIDINE 40 MG/5 ML ORAL SUSP PO SCH (09:28)
[2019-06-16] MEDS: MIDODRINE 5 MG TABLET PO SCH ×3 (09:28→20:49)
[2019-06-16] MEDS: FENTANYL PF 100 MCG/2ML IVPush PRN (14:53)
[2019-06-16] MEDS ORDERED: ALBUMIN HUMAN 5% 500 ML IV ONE (19:30)
[2019-06-17] MEDS ORDERED: LORazepam 2 MG/ML, 1ML IVPush PRN (02:00)
[2019-06-17] MEDS ORDERED: morphine SULFATE 10 MG/ML, 1ML IVPush PRN (02:00)
[2019-06-17] MEDS: INSULIN LISPRO 100 UNITS/ML, PEN SQ-INSULIN SCH ×4 (04:28→20:53)
[2019-06-17] MEDS: HEPARIN 5,000 UNITS/ML, 1ML SQ SCH ×3 (04:40→20:03)
[2019-06-17 04:53] LABS: MEAN CORPUSCULAR HEMOGLOBIN 29.9 pg (27.5-34.5); MEAN CORPUSCULAR HGB CONC 32.7 g/dL (33.2-36.2); MEAN CORPUSCULAR VOLUME 91.3 fL (81-97); MEAN PLATELET VOLUME 10.1 fL (7.4-10.4); PLATELET COUNT 78 x10^3/uL (130-400); RED BLOOD COUNT 2.61 x10^6/uL (4.38-5.82); RED CELL DISTRIBUTION WIDTH 15.1 % (9.4-14.8)
[2019-06-17 04:54] LABS: ANION GAP 15 mmol/L (5-15); CALCIUM 8.5 mg/dL (8.5-10.1); CHLORIDE 97 mmol/L (98-107); TRIGLYCERIDES 388 mg/dL (50-200)
[2019-06-17 05:17] LABS: BASOPHILS # (AUTO) 0.02 x10^3/uL (0-0.1); BASOPHILS % (AUTO) 0 % (0-1); EOSINOPHILS # (AUTO) 0.04 x10^3/uL (0-0.4); EOSINOPHILS % (AUTO) 1 % (1-7); LYMPHOCYTES # (AUTO) 0.81 x10^3/uL (1-3.4); LYMPHOCYTES % (AUTO) 12 % (22-44); MD SCAN; MONOCYTES # (AUTO) 0.35 x10^3/uL (0.2-0.8); MONOCYTES % (AUTO) 5 % (2-9); NEUTROPHILS # (AUTO) 5.54 x10^3/uL (1.8-6.8); NEUTROPHILS % (AUTO) 82 % (42-75)
[2019-06-17] MEDS: MIDODRINE 5 MG TABLET PO SCH ×3 (09:25→20:52)
[2019-06-17] MEDS: INSULIN GLARGINE 100 UNITS/ML, PEN SQ-INSULIN SCH ×2 (09:25→20:52)
[2019-06-17] MEDS: FAMOTIDINE 40 MG/5 ML ORAL SUSP PO SCH (09:25)
[2019-06-17 11:29] LABS: HIT RESULT NEGATIVE (NEGATIVE)
[2019-06-17] MEDS ORDERED: INSULIN GLARGINE 100 UNITS/ML, PEN SQ-INSULIN SCH (21:00)
[2019-06-18] MEDS: INSULIN LISPRO 100 UNITS/ML, PEN SQ-INSULIN SCH ×4 (03:00→20:02)
[2019-06-18] MEDS: HEPARIN 5,000 UNITS/ML, 1ML SQ SCH ×3 (03:59→19:54)
[2019-06-18 04:11] LABS: ANION GAP 14 mmol/L (5-15); CALCIUM 8.9 mg/dL (8.5-10.1); CHLORIDE 98 mmol/L (98-107); CREATININE 4.31 mg/dL (0.7-1.3)
[2019-06-18 04:44] LABS: BASOPHILS % (AUTO) 0 % (0-1); EOSINOPHILS # (AUTO) 0.13 x10^3/uL (0-0.4); EOSINOPHILS % (AUTO) 2 % (1-7); LYMPHOCYTES # (AUTO) 0.79 x10^3/uL (1-3.4); LYMPHOCYTES % (AUTO) 11 % (22-44); MD SCAN; MEAN CORPUSCULAR HEMOGLOBIN 29.8 pg (27.5-34.5); MEAN CORPUSCULAR HGB CONC 32.9 g/dL (33.2-36.2); MEAN CORPUSCULAR VOLUME 90.5 fL (81-97); MEAN PLATELET VOLUME 9.4 fL (7.4-10.4); MONOCYTES # (AUTO) 0.17 x10^3/uL (0.2-0.8); MONOCYTES % (AUTO) 2 % (2-9); NEUTROPHILS # (AUTO) 6.03 x10^3/uL (1.8-6.8); NEUTROPHILS % (AUTO) 85 % (42-75); PLATELET COUNT 93 x10^3/uL (130-400); RED BLOOD COUNT 2.74 x10^6/uL (4.38-5.82); RED CELL DISTRIBUTION WIDTH 15.4 % (9.4-14.8)
[2019-06-18] MEDS ORDERED: VECURONIUM 10 MG IVPush ONE (09:00)
[2019-06-18] MEDS ORDERED: MIDAZOLAM 1 MG/ML, 5ML IVPush ONE (09:00)
[2019-06-18] MEDS ORDERED: FENTANYL PF 100 MCG/2ML IVPush ONE (09:00)
[2019-06-18] MEDS: MIDODRINE 5 MG TABLET PO SCH ×3 (09:44→19:54)
[2019-06-18] MEDS: FAMOTIDINE 40 MG/5 ML ORAL SUSP PO SCH (09:44)
[2019-06-18] MEDS: INSULIN GLARGINE 100 UNITS/ML, PEN SQ-INSULIN SCH ×2 (09:46→20:03)
[2019-06-18] MEDS: ACETAMINOPHEN 650 MG/20.3 ML UDC PO PRN (19:09)
[2019-06-19] MEDS: INSULIN LISPRO 100 UNITS/ML, PEN SQ-INSULIN SCH ×4 (03:06→21:24)
[2019-06-19 03:11] LABS: BASOPHILS # (AUTO) 0.02 x10^3/uL (0-0.1); BASOPHILS % (AUTO) 0 % (0-1); EOSINOPHILS % (AUTO) 2 % (1-7); LYMPHOCYTES # (AUTO) 0.63 x10^3/uL (1-3.4); LYMPHOCYTES % (AUTO) 11 % (22-44); MD NO; MEAN CORPUSCULAR HGB CONC 33.4 g/dL (33.2-36.2); MEAN CORPUSCULAR VOLUME 92.6 fL (81-97); MEAN PLATELET VOLUME 9.4 fL (7.4-10.4); MONOCYTES # (AUTO) 0.38 x10^3/uL (0.2-0.8); MONOCYTES % (AUTO) 7 % (2-9); NEUTROPHILS # (AUTO) 4.51 x10^3/uL (1.8-6.8); NEUTROPHILS % (AUTO) 80 % (42-75); PLATELET COUNT 113 x10^3/uL (130-400); RED BLOOD COUNT 2.65 x10^6/uL (4.38-5.82); RED CELL DISTRIBUTION WIDTH 15.2 % (9.4-14.8)
[2019-06-19 03:21] LABS: ANION GAP 14 mmol/L (5-15); CALCIUM 9.1 mg/dL (8.5-10.1); CHLORIDE 97 mmol/L (98-107); CREATININE 4.05 mg/dL (0.7-1.3)
[2019-06-19] MEDS: HEPARIN 5,000 UNITS/ML, 1ML SQ SCH ×3 (04:09→21:20)
[2019-06-19 06:26] VITALS: BP 103/50
[2019-06-19] MEDS: FAMOTIDINE 40 MG/5 ML ORAL SUSP PO SCH (07:28)
[2019-06-19] MEDS: MIDODRINE 5 MG TABLET PO SCH ×3 (07:28→21:20)
[2019-06-19] MEDS ORDERED: TPN PER PHARMACY MC PRN (09:30)
[2019-06-19 10:12] LABS: MICROSCOPIC INDICATED
[2019-06-19] MEDS: INSULIN GLARGINE 100 UNITS/ML, PEN SQ-INSULIN SCH ×2 (11:09→21:23)
[2019-06-19] MEDS: FILTER, DISP 1.2 MICRON FOR TPN/PVN IV PRN (16:20)
[2019-06-19] MEDS ORDERED: FAMOTIDINE 40 MG/5 ML ORAL SUSP PO SCH (16:59)
[2019-06-19] MEDS ORDERED: [UNRECOGNIZED DRUG - OTHER] IV SCH (17:00)
[2019-06-19] MEDS ORDERED: SMOF TPN IV SCH (17:00)
[2019-06-19] MEDS ORDERED: AMINO ACID 10% IV SCH (17:00)
[2019-06-19] MEDS ORDERED: FAT EMUL IV SCH (17:00)
[2019-06-19] MEDS ORDERED: DEXTROSE 70% IV SCH (17:00)
[2019-06-19] MEDS ORDERED: DEXTROSE 50%, 50ML SYRINGE IVPush PRN (17:00)
[2019-06-19] MEDS ORDERED: DEXTROSE 10% 500 ML IV PRN (17:00)
[2019-06-19] MEDS: ACETAMINOPHEN 650 MG/20.3 ML UDC PO PRN (18:11)
[2019-06-19] MEDS: PIPERACILLIN/TAZO/PMX 2.25GM 50 ML IV SCH (18:19)
[2019-06-20] MEDS: ACETAMINOPHEN 650 MG/20.3 ML UDC PO PRN ×3 (00:30→13:19)
[2019-06-20] MEDS: INSULIN LISPRO 100 UNITS/ML, PEN SQ-INSULIN SCH ×4 (03:39→21:22)
[2019-06-20] MEDS: HEPARIN 5,000 UNITS/ML, 1ML SQ SCH ×3 (03:39→21:29)
[2019-06-20 03:53] LABS: ANION GAP 14 mmol/L (5-15); BASOPHILS # (AUTO) 0.03 x10^3/uL (0-0.1); BASOPHILS % (AUTO) 1 % (0-1); CALCIUM 9.1 mg/dL (8.5-10.1); CHLORIDE 97 mmol/L (98-107); CREATININE 6.01 mg/dL (0.7-1.3); EOSINOPHILS # (AUTO) 0.11 x10^3/uL (0-0.4); EOSINOPHILS % (AUTO) 2 % (1-7); LYMPHOCYTES # (AUTO) 0.58 x10^3/uL (1-3.4); LYMPHOCYTES % (AUTO) 13 % (22-44); MD NO; MEAN CORPUSCULAR HEMOGLOBIN 30.9 pg (27.5-34.5); MEAN CORPUSCULAR HGB CONC 33.4 g/dL (33.2-36.2); MEAN CORPUSCULAR VOLUME 92.6 fL (81-97); MEAN PLATELET VOLUME 9.7 fL (7.4-10.4); MONOCYTES # (AUTO) 0.36 x10^3/uL (0.2-0.8); MONOCYTES % (AUTO) 8 % (2-9); NEUTROPHILS # (AUTO) 3.39 x10^3/uL (1.8-6.8); NEUTROPHILS % (AUTO) 76 % (42-75); PLATELET COUNT 173 x10^3/uL (130-400); RED BLOOD COUNT 2.62 x10^6/uL (4.38-5.82); TRIGLYCERIDES 188 mg/dL (50-200)
[2019-06-20 04:00] VITALS: BP 125/55
[2019-06-20] MEDS: PIPERACILLIN/TAZO/PMX 2.25GM 50 ML IV SCH (05:24)
[2019-06-20] MEDS: MIDODRINE 5 MG TABLET PO SCH ×3 (08:31→21:29)
[2019-06-20] MEDS: INSULIN GLARGINE 100 UNITS/ML, PEN SQ-INSULIN SCH ×2 (08:32→21:22)
[2019-06-20] MEDS: CIPROFLOXACIN/PMX 400MG/200ML 200 ML IV SCH (09:07)
[2019-06-20] MEDS: FILTER, DISP 1.2 MICRON FOR TPN/PVN IV PRN (15:32)
[2019-06-20] MEDS ORDERED: FAT EMUL IV SCH (17:00)
[2019-06-20] MEDS ORDERED: [UNRECOGNIZED DRUG - OTHER] IV SCH (17:00)
[2019-06-20] MEDS ORDERED: SMOF TPN IV SCH (17:00)
[2019-06-20] MEDS ORDERED: AMINO ACID 10% IV SCH (17:00)
[2019-06-20] MEDS ORDERED: DEXTROSE 70% IV SCH (17:00)
[2019-06-21 04:00] VITALS: BP 117/68
[2019-06-21 05:00] LABS: BASOPHILS # (AUTO) 0.04 x10^3/uL (0-0.1); BASOPHILS % (AUTO) 1 % (0-1); EOSINOPHILS # (AUTO) 0.16 x10^3/uL (0-0.4); EOSINOPHILS % (AUTO) 3 % (1-7); LYMPHOCYTES # (AUTO) 0.66 x10^3/uL (1-3.4); LYMPHOCYTES % (AUTO) 11 % (22-44); MD NO; MEAN CORPUSCULAR HEMOGLOBIN 30.6 pg (27.5-34.5); MEAN CORPUSCULAR HGB CONC 33.1 g/dL (33.2-36.2); MEAN CORPUSCULAR VOLUME 92.5 fL (81-97); MEAN PLATELET VOLUME 9.7 fL (7.4-10.4); MONOCYTES # (AUTO) 0.51 x10^3/uL (0.2-0.8); MONOCYTES % (AUTO) 9 % (2-9); NEUTROPHILS # (AUTO) 4.47 x10^3/uL (1.8-6.8); NEUTROPHILS % (AUTO) 77 % (42-75); PLATELET COUNT 242 x10^3/uL (130-400); RED BLOOD COUNT 2.69 x10^6/uL (4.38-5.82); RED CELL DISTRIBUTION WIDTH 15.3 % (9.4-14.8)
[2019-06-21] MEDS: HEPARIN 5,000 UNITS/ML, 1ML SQ SCH ×3 (05:09→21:04)
[2019-06-21 05:10] LABS: ANION GAP 13 mmol/L (5-15); CALCIUM 9.1 mg/dL (8.5-10.1); CHLORIDE 100 mmol/L (98-107)
[2019-06-21] MEDS: INSULIN LISPRO 100 UNITS/ML, PEN SQ-INSULIN SCH ×7 (05:10→21:08)
[2019-06-21 05:11] LABS: CREATININE 4.63 mg/dL (0.7-1.3)
[2019-06-21] MEDS: CIPROFLOXACIN/PMX 400MG/200ML 200 ML IV SCH (08:35)
[2019-06-21] MEDS: INSULIN GLARGINE 100 UNITS/ML, PEN SQ-INSULIN SCH (08:38)
[2019-06-21] MEDS: MIDODRINE 5 MG TABLET PO SCH ×3 (08:49→21:04)
[2019-06-21] MEDS: FENTANYL PF 100 MCG/2ML IVPush PRN (15:00)
[2019-06-21] MEDS: MIDAZOLAM 1 MG/ML, 2ML IVPush PRN (15:00)
[2019-06-21] MEDS ORDERED: OMNIPAQUE 350 MG/ML, 150 ML BOTTLE ONE (15:29)
[2019-06-21] MEDS: MEROPENEM 1,000 MG in SODIUM CHLORIDE 0.9% 100 ML IV SCH (15:49)
[2019-06-21] MEDS ORDERED: FAT EMUL IV SCH (17:00)
[2019-06-21] MEDS ORDERED: AMINO ACID 10% IV SCH (17:00)
[2019-06-21] MEDS ORDERED: FILTER, DISP 1.2 MICRON FOR TPN/PVN IV PRN (17:00)
[2019-06-21] MEDS ORDERED: [UNRECOGNIZED DRUG - OTHER] IV SCH (17:00)
[2019-06-21] MEDS ORDERED: SMOF TPN IV SCH (17:00)
[2019-06-21] MEDS ORDERED: DEXTROSE 70% IV SCH (17:00)
[2019-06-22] MEDS: INSULIN LISPRO 100 UNITS/ML, PEN SQ-INSULIN SCH ×8 (03:09→20:20)
[2019-06-22] MEDS: ACETAMINOPHEN 650 MG/20.3 ML UDC PO PRN (03:10)
[2019-06-22] MEDS: FENTANYL PF 100 MCG/2ML IVPush PRN (03:14)
[2019-06-22 04:00] VITALS: BP 113/58
[2019-06-22] MEDS: HEPARIN 5,000 UNITS/ML, 1ML SQ SCH ×3 (04:42→20:19)
[2019-06-22 04:57] LABS: BASOPHILS # (AUTO) 0.04 x10^3/uL (0-0.1); BASOPHILS % (AUTO) 1 % (0-1); EOSINOPHILS # (AUTO) 0.14 x10^3/uL (0-0.4); EOSINOPHILS % (AUTO) 2 % (1-7); LYMPHOCYTES # (AUTO) 0.81 x10^3/uL (1-3.4); LYMPHOCYTES % (AUTO) 12 % (22-44); MD NO; MEAN CORPUSCULAR HEMOGLOBIN 30.5 pg (27.5-34.5); MEAN CORPUSCULAR HGB CONC 32.9 g/dL (33.2-36.2); MEAN CORPUSCULAR VOLUME 92.7 fL (81-97); MEAN PLATELET VOLUME 8.8 fL (7.4-10.4); MONOCYTES # (AUTO) 0.57 x10^3/uL (0.2-0.8); MONOCYTES % (AUTO) 8 % (2-9); NEUTROPHILS # (AUTO) 5.31 x10^3/uL (1.8-6.8); NEUTROPHILS % (AUTO) 77 % (42-75); PLATELET COUNT 278 x10^3/uL (130-400); RED BLOOD COUNT 2.59 x10^6/uL (4.38-5.82); RED CELL DISTRIBUTION WIDTH 15.6 % (9.4-14.8)
[2019-06-22 05:06] LABS: ANION GAP 16 mmol/L (5-15); CALCIUM 9.1 mg/dL (8.5-10.1); CHLORIDE 100 mmol/L (98-107); CREATININE 6.36 mg/dL (0.7-1.3)
[2019-06-22] MEDS ORDERED: FILTER, DISP 1.2 MICRON FOR TPN/PVN IV PRN ×2 (09:30→17:00)
[2019-06-22] MEDS: MIDODRINE 5 MG TABLET PO SCH ×3 (10:46→20:21)
[2019-06-22] MEDS: CIPROFLOXACIN/PMX 400MG/200ML 200 ML IV SCH (13:28)
[2019-06-22] MEDS: MEROPENEM 1,000 MG in SODIUM CHLORIDE 0.9% 100 ML IV SCH (15:51)
[2019-06-22] MEDS ORDERED: FAT EMUL IV SCH (17:00)
[2019-06-22] MEDS ORDERED: [UNRECOGNIZED DRUG - OTHER] IV SCH (17:00)
[2019-06-22] MEDS ORDERED: SMOF TPN IV SCH (17:00)
[2019-06-22] MEDS ORDERED: DEXTROSE 70% IV SCH (17:00)
[2019-06-22] MEDS ORDERED: AMINO ACID 10% IV SCH (17:00)
[2019-06-23] MEDS: FENTANYL PF 100 MCG/2ML IVPush PRN ×5 (00:42→21:57)
[2019-06-23] MEDS: HEPARIN 5,000 UNITS/ML, 1ML SQ SCH ×3 (03:44→20:06)
[2019-06-23] MEDS: INSULIN LISPRO 100 UNITS/ML, PEN SQ-INSULIN SCH ×9 (03:45→21:57)
[2019-06-23 03:47] LABS: BASOPHILS # (AUTO) 0.02 x10^3/uL (0-0.1); BASOPHILS % (AUTO) 0 % (0-1); EOSINOPHILS # (AUTO) 0.18 x10^3/uL (0-0.4); EOSINOPHILS % (AUTO) 2 % (1-7); LYMPHOCYTES # (AUTO) 0.81 x10^3/uL (1-3.4); LYMPHOCYTES % (AUTO) 10 % (22-44); MD NO; MEAN CORPUSCULAR HEMOGLOBIN 30.5 pg (27.5-34.5); MEAN CORPUSCULAR HGB CONC 33.1 g/dL (33.2-36.2); MEAN CORPUSCULAR VOLUME 92.1 fL (81-97); MEAN PLATELET VOLUME 8.2 fL (7.4-10.4); MONOCYTES # (AUTO) 0.75 x10^3/uL (0.2-0.8); MONOCYTES % (AUTO) 9 % (2-9); NEUTROPHILS % (AUTO) 78 % (42-75); PLATELET COUNT 310 x10^3/uL (130-400); RED BLOOD COUNT 2.73 x10^6/uL (4.38-5.82); RED CELL DISTRIBUTION WIDTH 15.3 % (9.4-14.8)
[2019-06-23 03:59] LABS: ANION GAP 15 mmol/L (5-15); CALCIUM 9.6 mg/dL (8.5-10.1); CHLORIDE 100 mmol/L (98-107); CREATININE 4.89 mg/dL (0.7-1.3); TRIGLYCERIDES 284 mg/dL (50-200)
[2019-06-23 05:46] VITALS: BP 112/65
[2019-06-23] MEDS: ACETAMINOPHEN 650 MG/20.3 ML UDC PO PRN ×2 (05:47→11:28)
[2019-06-23] MEDS: MIDODRINE 5 MG TABLET PO SCH ×3 (09:00→21:57)
[2019-06-23] MEDS: CIPROFLOXACIN/PMX 400MG/200ML 200 ML IV SCH (09:00)
[2019-06-23] MEDS: DAPTOMYCIN IVPB SCH (15:20)
[2019-06-23] MEDS: SODIUM CHLORIDE 0.9% IVPB SCH (15:20)
[2019-06-23] MEDS: MEROPENEM 1,000 MG in SODIUM CHLORIDE 0.9% 100 ML IV SCH (15:30)
[2019-06-23] MEDS ORDERED: SMOF TPN IV SCH (17:00)
[2019-06-23] MEDS ORDERED: AMINO ACID 10% IV SCH (17:00)
[2019-06-23] MEDS ORDERED: DEXTROSE 70% IV SCH (17:00)
[2019-06-23] MEDS ORDERED: FAT EMUL IV SCH (17:00)
[2019-06-23] MEDS ORDERED: [UNRECOGNIZED DRUG - OTHER] IV SCH (17:00)
[2019-06-24] MEDS: FENTANYL PF 100 MCG/2ML IVPush PRN ×3 (03:13→22:44)
[2019-06-24] MEDS: INSULIN LISPRO 100 UNITS/ML, PEN SQ-INSULIN SCH ×9 (03:19→20:51)
[2019-06-24] MEDS: HEPARIN 5,000 UNITS/ML, 1ML SQ SCH ×3 (03:45→20:50)
[2019-06-24 04:00] VITALS: BP 122/67
[2019-06-24 04:16] LABS: BASOPHILS # (AUTO) 0.02 x10^3/uL (0-0.1); BASOPHILS % (AUTO) 0 % (0-1); EOSINOPHILS # (AUTO) 0.13 x10^3/uL (0-0.4); EOSINOPHILS % (AUTO) 2 % (1-7); LYMPHOCYTES # (AUTO) 0.87 x10^3/uL (1-3.4); LYMPHOCYTES % (AUTO) 12 % (22-44); MD NO; MEAN CORPUSCULAR HEMOGLOBIN 30.2 pg (27.5-34.5); MEAN CORPUSCULAR HGB CONC 33.1 g/dL (33.2-36.2); MEAN CORPUSCULAR VOLUME 91.4 fL (81-97); MEAN PLATELET VOLUME 9.1 fL (7.4-10.4); MONOCYTES # (AUTO) 0.68 x10^3/uL (0.2-0.8); MONOCYTES % (AUTO) 9 % (2-9); NEUTROPHILS # (AUTO) 5.81 x10^3/uL (1.8-6.8); NEUTROPHILS % (AUTO) 77 % (42-75); PLATELET COUNT 312 x10^3/uL (130-400); RED BLOOD COUNT 2.65 x10^6/uL (4.38-5.82); RED CELL DISTRIBUTION WIDTH 15.8 % (9.4-14.8)
[2019-06-24 04:28] LABS: ANION GAP 19 mmol/L (5-15); CALCIUM 9.3 mg/dL (8.5-10.1); CHLORIDE 99 mmol/L (98-107)
[2019-06-24] MEDS: MIDODRINE 5 MG TABLET PO SCH ×3 (09:16→20:50)
[2019-06-24] MEDS: CIPROFLOXACIN/PMX 400MG/200ML 200 ML IV SCH (09:16)
[2019-06-24] MEDS ORDERED: MIDAZOLAM 1 MG/ML, 5ML ONE (09:22)
[2019-06-24] MEDS: SODIUM BICARBONATE 4.0%, 5ML INLINE SCH ×4 (10:31→22:31)
[2019-06-24] MEDS: ALBUTEROL SULFATE 2.5 MG/3 ML NPPB SCH ×4 (10:31→22:31)
[2019-06-24] MEDS ORDERED: AMINO ACID 10% IV SCH ×2 (17:00)
[2019-06-24] MEDS ORDERED: SMOF TPN IV SCH ×2 (17:00)
[2019-06-24] MEDS ORDERED: [UNRECOGNIZED DRUG - OTHER] IV SCH ×2 (17:00)
[2019-06-24] MEDS ORDERED: FAT EMUL IV SCH ×2 (17:00)
[2019-06-24] MEDS ORDERED: DEXTROSE 70% IV SCH ×2 (17:00)
[2019-06-24] MEDS: MEROPENEM 1,000 MG in SODIUM CHLORIDE 0.9% 100 ML IV SCH (18:04)
[2019-06-24] MEDS ORDERED: SODIUM BICARBONATE 4.2%, 5ML ONE (22:06)
[2019-06-25] MEDS: SODIUM BICARBONATE 4.0%, 5ML INLINE SCH ×7 (02:08→23:05)
[2019-06-25] MEDS: ALBUTEROL SULFATE 2.5 MG/3 ML NPPB SCH ×6 (02:08→23:00)
[2019-06-25] MEDS ORDERED: SODIUM BICARBONATE 4.2%, 5ML ONE ×3 (02:13→22:13)
[2019-06-25] MEDS: FENTANYL PF 100 MCG/2ML IVPush PRN (03:35)
[2019-06-25] MEDS: INSULIN LISPRO 100 UNITS/ML, PEN SQ-INSULIN SCH ×8 (03:42→21:27)
[2019-06-25 04:00] VITALS: BP 111/70
[2019-06-25] MEDS: HEPARIN 5,000 UNITS/ML, 1ML SQ SCH ×3 (04:38→21:15)
[2019-06-25 04:44] LABS: MEAN CORPUSCULAR HEMOGLOBIN 29.5 pg (27.5-34.5); MEAN CORPUSCULAR HGB CONC 32.9 g/dL (33.2-36.2); MEAN CORPUSCULAR VOLUME 89.8 fL (81-97); MEAN PLATELET VOLUME 8.9 fL (7.4-10.4); PLATELET COUNT 377 x10^3/uL (130-400); RED BLOOD COUNT 2.72 x10^6/uL (4.38-5.82)
[2019-06-25 04:49] LABS: ANION GAP 16 mmol/L (5-15); CALCIUM 9.5 mg/dL (8.5-10.1); CHLORIDE 101 mmol/L (98-107)
[2019-06-25 04:51] LABS: HCT (SEDRATE) 24.5 % (39.2-51.8)
[2019-06-25 04:54] LABS: CREATINE KINASE, TOTAL 81 U/L (39-308); CREATININE 4.55 mg/dL (0.7-1.3)
[2019-06-25 05:02] LABS: BASOPHILS # (AUTO) 0.08 x10^3/uL (0-0.1); BASOPHILS % (AUTO) 1 % (0-1); EOSINOPHILS # (AUTO) 0.09 x10^3/uL (0-0.4); EOSINOPHILS % (AUTO) 1 % (1-7); LYMPHOCYTES # (AUTO) 0.78 x10^3/uL (1-3.4); LYMPHOCYTES % (AUTO) 10 % (22-44); MD SCAN; MONOCYTES # (AUTO) 0.76 x10^3/uL (0.2-0.8); MONOCYTES % (AUTO) 10 % (2-9); NEUTROPHILS # (AUTO) 5.81 x10^3/uL (1.8-6.8); NEUTROPHILS % (AUTO) 77 % (42-75)
[2019-06-25 05:15] LABS: SEDIMENTATION RATE > 120 mm/hr (0-10)
[2019-06-25] MEDS: CIPROFLOXACIN/PMX 400MG/200ML 200 ML IV SCH (08:43)
[2019-06-25] MEDS: MIDODRINE 5 MG TABLET PO SCH ×3 (08:43→21:15)
[2019-06-25] MEDS ORDERED: [UNRECOGNIZED DRUG - OTHER] IV SCH ×2 (17:00)
[2019-06-25] MEDS ORDERED: DEXTROSE 70% IV SCH ×2 (17:00)
[2019-06-25] MEDS ORDERED: FAT EMUL IV SCH ×2 (17:00)
[2019-06-25] MEDS ORDERED: SMOF TPN IV SCH ×2 (17:00)
[2019-06-25] MEDS ORDERED: AMINO ACID 10% IV SCH ×2 (17:00)
[2019-06-25] MEDS: MEROPENEM 1,000 MG in SODIUM CHLORIDE 0.9% 100 ML IV SCH (17:13)
[2019-06-25] MEDS: SODIUM CHLORIDE 0.9% IVPB SCH (18:12)
[2019-06-25] MEDS: FILTER, DISP 1.2 MICRON FOR TPN/PVN IV PRN (18:12)
[2019-06-25] MEDS: DAPTOMYCIN IVPB SCH (18:12)
[2019-06-26] MEDS: FENTANYL PF 100 MCG/2ML IVPush PRN (02:57)
[2019-06-26] MEDS: ALBUTEROL SULFATE 2.5 MG/3 ML NPPB SCH ×6 (03:00→22:43)
[2019-06-26 04:00] VITALS: BP 117/79
[2019-06-26] MEDS: INSULIN LISPRO 100 UNITS/ML, PEN SQ-INSULIN SCH ×8 (04:16→21:52)
[2019-06-26] MEDS: HEPARIN 5,000 UNITS/ML, 1ML SQ SCH ×3 (04:25→21:53)
[2019-06-26 04:40] LABS: MEAN PLATELET VOLUME 9.4 fL (7.4-10.4); PLATELET COUNT 420 x10^3/uL (130-400); RED BLOOD COUNT 3.07 x10^6/uL (4.38-5.82); RED CELL DISTRIBUTION WIDTH 15.7 % (9.4-14.8)
[2019-06-26] MEDS: SODIUM BICARBONATE 4.0%, 5ML INLINE SCH ×5 (04:50→22:30)
[2019-06-26 04:52] LABS: ALBUMIN 2.5 g/dL (3.4-5.0); ANION GAP 18 mmol/L (5-15); CHLORIDE 99 mmol/L (98-107)
[2019-06-26 04:57] LABS: ALANINE AMINOTRANSFERASE 16 U/L (12-78); ALKALINE PHOSPHATASE 130 U/L (45-117); BILIRUBIN,TOTAL 0.5 mg/dL (0.2-1.0); PREALBUMIN 26.7 mg/dL (20.0-40.0); TOTAL PROTEIN 7.8 g/dL (6.4-8.2); TRIGLYCERIDES 311 mg/dL (50-200)
[2019-06-26 05:41] LABS: BASOPHILS # (AUTO) 0.05 x10^3/uL (0-0.1); BASOPHILS % (AUTO) 0 % (0-1); EOSINOPHILS # (AUTO) 0.07 x10^3/uL (0-0.4); EOSINOPHILS % (AUTO) 1 % (1-7); LYMPHOCYTES # (AUTO) 1.31 x10^3/uL (1-3.4); LYMPHOCYTES % (AUTO) 12 % (22-44); MD SCAN; MONOCYTES # (AUTO) 1.25 x10^3/uL (0.2-0.8); MONOCYTES % (AUTO) 11 % (2-9); NEUTROPHILS # (AUTO) 8.38 x10^3/uL (1.8-6.8); NEUTROPHILS % (AUTO) 76 % (42-75)
[2019-06-26] MEDS ORDERED: SODIUM BICARBONATE 4.2%, 5ML ONE ×2 (06:43→18:41)
[2019-06-26] MEDS: MIDODRINE 5 MG TABLET PO SCH ×3 (09:43→21:51)
[2019-06-26] MEDS: MEROPENEM 1,000 MG in SODIUM CHLORIDE 0.9% 100 ML IV SCH (14:33)
[2019-06-26] MEDS: FILTER, DISP 1.2 MICRON FOR TPN/PVN IV PRN (16:48)
[2019-06-26] MEDS ORDERED: FAT EMUL IV SCH (17:00)
[2019-06-26] MEDS ORDERED: [UNRECOGNIZED DRUG - OTHER] IV SCH (17:00)
[2019-06-26] MEDS ORDERED: AMINO ACID 10% IV SCH (17:00)
[2019-06-26] MEDS ORDERED: DEXTROSE 70% IV SCH (17:00)
[2019-06-26] MEDS ORDERED: SMOF TPN IV SCH (17:00)
[2019-06-27] MEDS ORDERED: SODIUM BICARBONATE 4.2%, 5ML ONE ×3 (02:11→19:09)
[2019-06-27] MEDS: SODIUM BICARBONATE 4.0%, 5ML INLINE SCH ×6 (02:21→23:07)
[2019-06-27] MEDS: ALBUTEROL SULFATE 2.5 MG/3 ML NPPB SCH ×6 (02:22→23:07)
[2019-06-27] MEDS: MEROPENEM 1,000 MG in SODIUM CHLORIDE 0.9% 100 ML IV SCH ×2 (02:58→19:15)
[2019-06-27] MEDS: FENTANYL PF 100 MCG/2ML IVPush PRN ×2 (03:36→21:09)
[2019-06-27 04:00] VITALS: BP 117/74
[2019-06-27 05:26] LABS: MEAN CORPUSCULAR HEMOGLOBIN 29.8 pg (27.5-34.5); MEAN CORPUSCULAR HGB CONC 32.8 g/dL (33.2-36.2); MEAN CORPUSCULAR VOLUME 90.9 fL (81-97); MEAN PLATELET VOLUME 9.1 fL (7.4-10.4); PLATELET COUNT 387 x10^3/uL (130-400); RED BLOOD COUNT 2.91 x10^6/uL (4.38-5.82); RED CELL DISTRIBUTION WIDTH 16.2 % (9.4-14.8)
[2019-06-27] MEDS: INSULIN LISPRO 100 UNITS/ML, PEN SQ-INSULIN SCH ×8 (05:31→21:08)
[2019-06-27] MEDS: HEPARIN 5,000 UNITS/ML, 1ML SQ SCH ×3 (05:32→19:58)
[2019-06-27 05:34] LABS: CALCIUM 9.8 mg/dL (8.5-10.1); CHLORIDE 96 mmol/L (98-107)
[2019-06-27 05:37] LABS: CREATININE 5.65 mg/dL (0.7-1.3)
[2019-06-27 05:44] LABS: ANION GAP 21 mmol/L (5-15)
[2019-06-27 05:53] LABS: BASOPHILS # (AUTO) 0.07 x10^3/uL (0-0.1); BASOPHILS % (AUTO) 1 % (0-1); EOSINOPHILS # (AUTO) 0.11 x10^3/uL (0-0.4); EOSINOPHILS % (AUTO) 1 % (1-7); LYMPHOCYTES # (AUTO) 1.73 x10^3/uL (1-3.4); LYMPHOCYTES % (AUTO) 14 % (22-44); MD SCAN; MONOCYTES % (AUTO) 9 % (2-9); NEUTROPHILS # (AUTO) 9.77 x10^3/uL (1.8-6.8); NEUTROPHILS % (AUTO) 77 % (42-75)
[2019-06-27] MEDS: MIDODRINE 5 MG TABLET PO SCH ×3 (09:56→21:09)
[2019-06-27] MEDS ORDERED: DEXTROSE 70% IV SCH (17:00)
[2019-06-27] MEDS ORDERED: [UNRECOGNIZED DRUG - OTHER] IV SCH (17:00)
[2019-06-27] MEDS ORDERED: FAT EMUL IV SCH (17:00)
[2019-06-27] MEDS ORDERED: SMOF TPN IV SCH (17:00)
[2019-06-27] MEDS ORDERED: AMINO ACID 10% IV SCH (17:00)
[2019-06-27] MEDS: ERGOCALCIFEROL 50,000 UNIT CAPSULE PO SCH (17:11)
[2019-06-27] MEDS: FILTER, DISP 1.2 MICRON FOR TPN/PVN IV PRN (17:13)
[2019-06-27] MEDS: SODIUM CHLORIDE 0.9% IVPB SCH (19:53)
[2019-06-27] MEDS: DAPTOMYCIN IVPB SCH (19:53)
[2019-06-27] MEDS: MIDAZOLAM 1 MG/ML, 2ML IVPush PRN (22:17)
[2019-06-28] MEDS: FENTANYL PF 100 MCG/2ML IVPush PRN ×3 (00:01→13:14)
[2019-06-28] MEDS: HEPARIN 5,000 UNITS/ML, 1ML SQ SCH ×3 (03:23→20:35)
[2019-06-28] MEDS: MEROPENEM 1,000 MG in SODIUM CHLORIDE 0.9% 100 ML IV SCH ×2 (03:23→16:34)
[2019-06-28] MEDS: INSULIN LISPRO 100 UNITS/ML, PEN SQ-INSULIN SCH ×8 (03:24→22:38)
[2019-06-28] MEDS: SODIUM BICARBONATE 4.0%, 5ML INLINE SCH ×4 (03:46→14:30)
[2019-06-28] MEDS: ALBUTEROL SULFATE 2.5 MG/3 ML NPPB SCH ×6 (03:47→23:00)
[2019-06-28 03:48] LABS: MEAN CORPUSCULAR HEMOGLOBIN 29.9 pg (27.5-34.5); MEAN CORPUSCULAR HGB CONC 33.1 g/dL (33.2-36.2); MEAN CORPUSCULAR VOLUME 90.2 fL (81-97); MEAN PLATELET VOLUME 8.9 fL (7.4-10.4); PLATELET COUNT 397 x10^3/uL (130-400); RED BLOOD COUNT 2.98 x10^6/uL (4.38-5.82)
[2019-06-28 03:57] LABS: ANION GAP 15 mmol/L (5-15); CALCIUM 9.5 mg/dL (8.5-10.1); CHLORIDE 96 mmol/L (98-107); CREATININE 3.72 mg/dL (0.7-1.3)
[2019-06-28 03:58] VITALS: BP 100/68
[2019-06-28 04:10] LABS: MD YES
[2019-06-28 04:11] LABS: BAND#(MANUAL) 0.43 x10^3/uL; BANDS%(MANUAL) 3 % (0-7); BASOS#(MANUAL) 0.43 x10^3/uL (0-0.1); BASOS% (MANUAL) 3 % (0-1); LYMPH#(MANUAL) 0.86 x10^3/uL (1-3.4); LYMPHS% (MANUAL) 6 % (22-44); METAMYELOCYTES# (MANUAL) 0.14 x10^3/uL (0-0); METAMYELOCYTES% (MANUAL) 1 % (0-1); MONOS#(MANUAL) 1.01 x10^3/uL (0.3-2.7); MONOS% (MANUAL) 7 % (2-9); MYELOCYTES# (MANUAL) 0.29 x10^3/uL (0-0); MYELOCYTES% (MANUAL) 2 % (0-0); SEG#(MANUAL) 11.09 x10^3/uL (1.8-6.8); SEGS% (MANUAL) 77 % (42-75)
[2019-06-28 04:13] LABS: BLASTS # (MANUAL) 0.14 x10^3/uL (0-0); TOXIC GRAN 1+
[2019-06-28 04:15] LABS: ANISOCYTOSIS 1+; POLYCHROMASIA 1+
[2019-06-28 04:16] LABS: <PLATELET ESTIMATE> ADEQUATE; <PLT MORPHOLOGY> NORMAL PLT MORPH; BLASTS % (MANUAL) 1 % (0-0)
[2019-06-28] MEDS ORDERED: SODIUM BICARBONATE 4.2%, 5ML ONE ×2 (06:24→10:39)
[2019-06-28] MEDS ORDERED: FILTER, DISP 1.2 MICRON FOR TPN/PVN IV PRN (10:00)
[2019-06-28] MEDS: MIDODRINE 5 MG TABLET PO SCH ×3 (10:19→20:36)
[2019-06-28] MEDS: MIDAZOLAM 1 MG/ML, 2ML IVPush PRN ×2 (10:20→10:30)
[2019-06-28] MEDS ORDERED: VECURONIUM 10 MG ONE (10:24)
[2019-06-28] MEDS ORDERED: VECURONIUM 10 MG IVPush ONE (10:30)
[2019-06-28] MEDS: DAKIN'S SOLUTION 1/4 STRENGTH 1,000 ML IRRIG SOLN EXT SCH (11:30)
[2019-06-28 12:12] LABS: MICROSCOPIC INDICATED
[2019-06-28] MEDS ORDERED: DEXMEDETOMIDINE 200 MCG in SODIUM CHLORIDE 0.9% 48 ML IV PRN (16:30)
[2019-06-28] MEDS ORDERED: ALBUMIN HUMAN 5% 500 ML IV ONE (16:30)
[2019-06-28] MEDS ORDERED: DEXTROSE 70% IV SCH (17:00)
[2019-06-28] MEDS ORDERED: AMINO ACID 10% IV SCH (17:00)
[2019-06-28] MEDS ORDERED: FAT EMUL IV SCH (17:00)
[2019-06-28] MEDS ORDERED: [UNRECOGNIZED DRUG - OTHER] IV SCH (17:00)
[2019-06-28] MEDS ORDERED: SMOF TPN IV SCH (17:00)
[2019-06-28] MEDS ORDERED: ACETYLCYSTEINE 20%, 4ML NPPB SCH (20:00)
[2019-06-28] MEDS: DEXMEDETOMIDINE 1,000 MCG in SODIUM CHLORIDE 0.9% 240 ML IV PRN (22:02)
[2019-06-28] MEDS: ACETYLCYSTEINE 20%, 4ML NPPB SCH (23:00)
[2019-06-29] MEDS: FENTANYL PF 100 MCG/2ML IVPush PRN ×4 (00:32→23:33)
[2019-06-29] MEDS: DAKIN'S SOLUTION 1/4 STRENGTH 1,000 ML IRRIG SOLN EXT SCH ×3 (00:33→22:57)
[2019-06-29] MEDS: ALBUTEROL SULFATE 2.5 MG/3 ML NPPB SCH ×6 (02:35→23:07)
[2019-06-29 03:26] LABS: ANION GAP 20 mmol/L (5-15); CALCIUM 9.1 mg/dL (8.5-10.1); CHLORIDE 95 mmol/L (98-107); CREATININE 4.93 mg/dL (0.7-1.3)
[2019-06-29 03:29] LABS: TRIGLYCERIDES 332 mg/dL (50-200)
[2019-06-29 03:34] LABS: BASOPHILS # (AUTO) 0.02 x10^3/uL (0-0.1); BASOPHILS % (AUTO) 0 % (0-1); EOSINOPHILS # (AUTO) 0.15 x10^3/uL (0-0.4); EOSINOPHILS % (AUTO) 2 % (1-7); LYMPHOCYTES # (AUTO) 1.15 x10^3/uL (1-3.4); LYMPHOCYTES % (AUTO) 11 % (22-44); MD NO; MEAN CORPUSCULAR HEMOGLOBIN 30.2 pg (27.5-34.5); MEAN CORPUSCULAR HGB CONC 33.1 g/dL (33.2-36.2); MEAN CORPUSCULAR VOLUME 91.2 fL (81-97); MEAN PLATELET VOLUME 9.2 fL (7.4-10.4); MONOCYTES % (AUTO) 10 % (2-9); NEUTROPHILS # (AUTO) 7.88 x10^3/uL (1.8-6.8); NEUTROPHILS % (AUTO) 77 % (42-75); PLATELET COUNT 318 x10^3/uL (130-400); RED BLOOD COUNT 2.69 x10^6/uL (4.38-5.82); RED CELL DISTRIBUTION WIDTH 15.9 % (9.4-14.8)
[2019-06-29] MEDS: INSULIN LISPRO 100 UNITS/ML, PEN SQ-INSULIN SCH ×8 (03:45→22:07)
[2019-06-29 04:00] VITALS: BP 84/45
[2019-06-29] MEDS: HEPARIN 5,000 UNITS/ML, 1ML SQ SCH ×3 (04:10→19:57)
[2019-06-29] MEDS: ACETYLCYSTEINE 20%, 4ML NPPB SCH ×3 (07:00→23:06)
[2019-06-29] MEDS: LIDOCAINE-MPF 1%, 2ML ENDO PRN (09:11)
[2019-06-29] MEDS: MIDODRINE 5 MG TABLET PO SCH ×3 (12:55→20:46)
[2019-06-29] MEDS ORDERED: [UNRECOGNIZED DRUG - OTHER] IV SCH (17:00)
[2019-06-29] MEDS ORDERED: AMINO ACID 10% IV SCH (17:00)
[2019-06-29] MEDS ORDERED: FILTER, DISP 1.2 MICRON FOR TPN/PVN IV PRN (17:00)
[2019-06-29] MEDS ORDERED: DEXTROSE 70% IV SCH (17:00)
[2019-06-29] MEDS ORDERED: FAT EMUL IV SCH (17:00)
[2019-06-29] MEDS ORDERED: SMOF TPN IV SCH (17:00)
[2019-06-29] MEDS: DAPTOMYCIN IVPB SCH (20:34)
[2019-06-29] MEDS: SODIUM CHLORIDE 0.9% IVPB SCH (20:34)
[2019-06-29] MEDS: DEXMEDETOMIDINE 1,000 MCG in SODIUM CHLORIDE 0.9% 240 ML IV PRN (22:46)
[2019-06-30] MEDS: ALBUTEROL SULFATE 2.5 MG/3 ML NPPB SCH ×6 (02:42→23:00)
[2019-06-30 02:58] LABS: MEAN CORPUSCULAR HEMOGLOBIN 30.4 pg (27.5-34.5); MEAN CORPUSCULAR HGB CONC 33.6 g/dL (33.2-36.2); MEAN CORPUSCULAR VOLUME 90.5 fL (81-97); MEAN PLATELET VOLUME 8.7 fL (7.4-10.4); PLATELET COUNT 324 x10^3/uL (130-400); RED BLOOD COUNT 2.81 x10^6/uL (4.38-5.82); RED CELL DISTRIBUTION WIDTH 16.7 % (9.4-14.8)
[2019-06-30 03:09] LABS: ANION GAP 12 mmol/L (5-15); CALCIUM 9.3 mg/dL (8.5-10.1); CHLORIDE 99 mmol/L (98-107)
[2019-06-30] MEDS: FENTANYL PF 100 MCG/2ML IVPush PRN ×2 (03:09→10:55)
[2019-06-30 03:10] LABS: MD YES
[2019-06-30] MEDS: INSULIN LISPRO 100 UNITS/ML, PEN SQ-INSULIN SCH ×8 (03:10→22:49)
[2019-06-30 03:11] LABS: BAND#(MANUAL) 0.22 x10^3/uL; BANDS%(MANUAL) 2 % (0-7); LYMPH#(MANUAL) 1.12 x10^3/uL (1-3.4); LYMPHS% (MANUAL) 10 % (22-44); METAMYELOCYTES# (MANUAL) 0.22 x10^3/uL (0-0); METAMYELOCYTES% (MANUAL) 2 % (0-1); MONOS#(MANUAL) 0.67 x10^3/uL (0.3-2.7); MONOS% (MANUAL) 6 % (2-9)
[2019-06-30 03:13] LABS: ANISOCYTOSIS 1+; EOS#(MANUAL) 0.11 x10^3/uL (0.0-0.4); EOS% (MANUAL) 1 % (1-7); MYELOCYTES# (MANUAL) 0.11 x10^3/uL (0-0); MYELOCYTES% (MANUAL) 1 % (0-0); OVALOCYTES 1+; POLYCHROMASIA 1+; SEG#(MANUAL) 8.74 x10^3/uL (1.8-6.8); SEGS% (MANUAL) 78 % (42-75)
[2019-06-30 03:15] LABS: <PLATELET ESTIMATE> ADEQUATE; LARGE PLATELETS 1+
[2019-06-30 04:00] VITALS: BP 102/55
[2019-06-30] MEDS: HEPARIN 5,000 UNITS/ML, 1ML SQ SCH ×3 (04:02→20:13)
[2019-06-30] MEDS: ACETYLCYSTEINE 20%, 4ML NPPB SCH ×3 (07:00→23:00)
[2019-06-30] MEDS ORDERED: FILTER, DISP 1.2 MICRON FOR TPN/PVN IV PRN (09:30)
[2019-06-30] MEDS: DAKIN'S SOLUTION 1/4 STRENGTH 1,000 ML IRRIG SOLN EXT SCH ×2 (11:02→20:15)
[2019-06-30] MEDS: RISPERIDONE 1 MG/ML ORAL SOLN NG SCH ×2 (11:14→20:14)
[2019-06-30] MEDS: MIDODRINE 5 MG TABLET PO SCH ×3 (11:15→20:13)
[2019-06-30] MEDS ORDERED: MIDAZOLAM 1 MG/ML, 5ML ONE (12:43)
[2019-06-30] MEDS ORDERED: MIDAZOLAM 1 MG/ML, 5ML IVPush PRN (13:00)
[2019-06-30] MEDS ORDERED: SMOF TPN IV SCH (17:00)
[2019-06-30] MEDS ORDERED: AMINO ACID 10% IV SCH (17:00)
[2019-06-30] MEDS ORDERED: [UNRECOGNIZED DRUG - OTHER] IV SCH (17:00)
[2019-06-30] MEDS ORDERED: DEXTROSE 70% IV SCH (17:00)
[2019-06-30] MEDS ORDERED: FAT EMUL IV SCH (17:00)
[2019-07-01] MEDS: ALBUTEROL SULFATE 2.5 MG/3 ML NPPB SCH ×6 (02:31→22:12)
[2019-07-01] MEDS: INSULIN LISPRO 100 UNITS/ML, PEN SQ-INSULIN SCH ×8 (02:38→22:02)
[2019-07-01] MEDS: HEPARIN 5,000 UNITS/ML, 1ML SQ SCH ×3 (02:40→22:00)
[2019-07-01 03:48] LABS: MEAN CORPUSCULAR HEMOGLOBIN 31.3 pg (27.5-34.5); MEAN CORPUSCULAR HGB CONC 34.4 g/dL (33.2-36.2); MEAN CORPUSCULAR VOLUME 90.9 fL (81-97); MEAN PLATELET VOLUME 8.8 fL (7.4-10.4); PLATELET COUNT 277 x10^3/uL (130-400); RED BLOOD COUNT 2.57 x10^6/uL (4.38-5.82); RED CELL DISTRIBUTION WIDTH 16.5 % (9.4-14.8)
[2019-07-01 03:59] LABS: ANION GAP 19 mmol/L (5-15); CALCIUM 9.3 mg/dL (8.5-10.1); CHLORIDE 99 mmol/L (98-107)
[2019-07-01 04:00] VITALS: BP 105/65
[2019-07-01 05:04] LABS: MD YES
[2019-07-01 05:06] LABS: ANISOCYTOSIS 1+; BAND#(MANUAL) 0.09 x10^3/uL; BANDS%(MANUAL) 1 % (0-7); LYMPH#(MANUAL) 1.27 x10^3/uL (1-3.4); LYMPHS% (MANUAL) 14 % (22-44); METAMYELOCYTES# (MANUAL) 0.09 x10^3/uL (0-0); METAMYELOCYTES% (MANUAL) 1 % (0-1); MONOS#(MANUAL) 0.36 x10^3/uL (0.3-2.7); MONOS% (MANUAL) 4 % (2-9); POLYCHROMASIA 1+; SEG#(MANUAL) 7.28 x10^3/uL (1.8-6.8); SEGS% (MANUAL) 80 % (42-75)
[2019-07-01 05:07] LABS: <PLATELET ESTIMATE> ADEQUATE; LARGE PLATELETS 1+; TOXIC GRAN 1+
[2019-07-01] MEDS: ACETYLCYSTEINE 20%, 4ML NPPB SCH ×3 (06:16→22:12)
[2019-07-01] MEDS: RISPERIDONE 1 MG/ML ORAL SOLN NG SCH ×2 (09:02→22:01)
[2019-07-01] MEDS: MIDODRINE 5 MG TABLET PO SCH ×3 (09:03→22:01)
[2019-07-01] MEDS: DAKIN'S SOLUTION 1/4 STRENGTH 1,000 ML IRRIG SOLN EXT SCH ×2 (10:57→22:07)
[2019-07-01] MEDS: ACETAMINOPHEN 650 MG/20.3 ML UDC PO PRN (14:09)
[2019-07-01 14:37] LABS: MICROSCOPIC INDICATED
[2019-07-01] MEDS: DEXMEDETOMIDINE 1,000 MCG in SODIUM CHLORIDE 0.9% 240 ML IV PRN (16:22)
[2019-07-01] MEDS ORDERED: SMOF TPN IV SCH (17:00)
[2019-07-01] MEDS ORDERED: DEXTROSE 70% IV SCH (17:00)
[2019-07-01] MEDS ORDERED: [UNRECOGNIZED DRUG - OTHER] IV SCH (17:00)
[2019-07-01] MEDS ORDERED: FAT EMUL IV SCH (17:00)
[2019-07-01] MEDS ORDERED: AMINO ACID 10% IV SCH (17:00)
[2019-07-01] MEDS ORDERED: FILTER, DISP 1.2 MICRON FOR TPN/PVN IV PRN (17:00)
[2019-07-01] MEDS: SODIUM CHLORIDE 0.9% IVPB SCH (21:06)
[2019-07-01] MEDS: DAPTOMYCIN IVPB SCH (21:06)
[2019-07-02] MEDS: FENTANYL PF 100 MCG/2ML IVPush PRN ×6 (01:24→22:28)
[2019-07-02] MEDS: ALBUTEROL SULFATE 2.5 MG/3 ML NPPB SCH ×6 (02:31→23:17)
[2019-07-02 04:00] VITALS: BP 103/55
[2019-07-02] MEDS: INSULIN LISPRO 100 UNITS/ML, PEN SQ-INSULIN SCH ×8 (04:13→21:38)
[2019-07-02] MEDS: HEPARIN 5,000 UNITS/ML, 1ML SQ SCH ×3 (04:19→21:43)
[2019-07-02 04:35] LABS: BASOPHILS # (AUTO) 0.09 x10^3/uL (0-0.1); BASOPHILS % (AUTO) 1 % (0-1); EOSINOPHILS # (AUTO) 0.16 x10^3/uL (0-0.4); EOSINOPHILS % (AUTO) 2 % (1-7); LYMPHOCYTES # (AUTO) 0.97 x10^3/uL (1-3.4); LYMPHOCYTES % (AUTO) 10 % (22-44); MD NO; MEAN CORPUSCULAR HEMOGLOBIN 30.3 pg (27.5-34.5); MEAN CORPUSCULAR HGB CONC 33.5 g/dL (33.2-36.2); MEAN CORPUSCULAR VOLUME 90.5 fL (81-97); MEAN PLATELET VOLUME 8.9 fL (7.4-10.4); MONOCYTES % (AUTO) 8 % (2-9); NEUTROPHILS # (AUTO) 7.49 x10^3/uL (1.8-6.8); NEUTROPHILS % (AUTO) 79 % (42-75); PLATELET COUNT 268 x10^3/uL (130-400); RED BLOOD COUNT 2.68 x10^6/uL (4.38-5.82); RED CELL DISTRIBUTION WIDTH 16.9 % (9.4-14.8)
[2019-07-02 04:45] LABS: ANION GAP 15 mmol/L (5-15); CALCIUM 9.4 mg/dL (8.5-10.1); CHLORIDE 96 mmol/L (98-107); CREATININE 2.78 mg/dL (0.7-1.3)
[2019-07-02 04:59] LABS: TRIGLYCERIDES 292 mg/dL (50-200)
[2019-07-02] MEDS: ACETYLCYSTEINE 20%, 4ML NPPB SCH (06:24)
[2019-07-02] MEDS ORDERED: VECURONIUM 10 MG IVPush ONE (09:00)
[2019-07-02] MEDS ORDERED: MIDAZOLAM 1 MG/ML, 2ML IVPush ONE (09:00)
[2019-07-02] MEDS: RISPERIDONE 1 MG/ML ORAL SOLN NG SCH ×2 (09:40→21:43)
[2019-07-02] MEDS: MIDODRINE 5 MG TABLET PO SCH ×3 (09:40→21:41)
[2019-07-02] MEDS: DAKIN'S SOLUTION 1/4 STRENGTH 1,000 ML IRRIG SOLN EXT SCH ×2 (09:51→21:43)
[2019-07-02] MEDS: DEXMEDETOMIDINE 1,000 MCG in SODIUM CHLORIDE 0.9% 240 ML IV PRN (12:52)
[2019-07-02] MEDS: FILTER, DISP 1.2 MICRON FOR TPN/PVN IV PRN (16:16)
[2019-07-02] MEDS: ACETAMINOPHEN 650 MG/20.3 ML UDC PO PRN (16:16)
[2019-07-02] MEDS ORDERED: [UNRECOGNIZED DRUG - OTHER] IV SCH (17:00)
[2019-07-02] MEDS ORDERED: AMINO ACID 10% IV SCH (17:00)
[2019-07-02] MEDS ORDERED: FAT EMUL IV SCH (17:00)
[2019-07-02] MEDS ORDERED: SMOF TPN IV SCH (17:00)
[2019-07-02] MEDS ORDERED: DEXTROSE 70% IV SCH (17:00)
[2019-07-03] MEDS: ALBUTEROL SULFATE 2.5 MG/3 ML NPPB SCH ×6 (03:43→22:51)
[2019-07-03 04:00] VITALS: BP 100/55
[2019-07-03] MEDS: HEPARIN 5,000 UNITS/ML, 1ML SQ SCH ×3 (04:25→22:12)
[2019-07-03] MEDS: INSULIN LISPRO 100 UNITS/ML, PEN SQ-INSULIN SCH ×8 (04:27→22:12)
[2019-07-03 04:38] LABS: BASOPHILS # (AUTO) 0.08 x10^3/uL (0-0.1); BASOPHILS % (AUTO) 1 % (0-1); EOSINOPHILS # (AUTO) 0.05 x10^3/uL (0-0.4); EOSINOPHILS % (AUTO) 1 % (1-7); LYMPHOCYTES # (AUTO) 0.74 x10^3/uL (1-3.4); LYMPHOCYTES % (AUTO) 8 % (22-44); MD NO; MEAN CORPUSCULAR HEMOGLOBIN 30.3 pg (27.5-34.5); MEAN CORPUSCULAR HGB CONC 33.1 g/dL (33.2-36.2); MEAN CORPUSCULAR VOLUME 91.7 fL (81-97); MEAN PLATELET VOLUME 9.3 fL (7.4-10.4); MONOCYTES # (AUTO) 0.99 x10^3/uL (0.2-0.8); MONOCYTES % (AUTO) 11 % (2-9); NEUTROPHILS # (AUTO) 7.22 x10^3/uL (1.8-6.8); NEUTROPHILS % (AUTO) 80 % (42-75); PLATELET COUNT 232 x10^3/uL (130-400); RED BLOOD COUNT 2.66 x10^6/uL (4.38-5.82); RED CELL DISTRIBUTION WIDTH 16.5 % (9.4-14.8)
[2019-07-03 04:45] LABS: ALANINE AMINOTRANSFERASE 21 U/L (12-78); ALBUMIN 2.3 g/dL (3.4-5.0); ANION GAP 15 mmol/L (5-15); CALCIUM 9.2 mg/dL (8.5-10.1); CHLORIDE 99 mmol/L (98-107)
[2019-07-03 04:51] LABS: ALKALINE PHOSPHATASE 155 U/L (45-117); BILIRUBIN,TOTAL 0.5 mg/dL (0.2-1.0); PREALBUMIN 23.8 mg/dL (20.0-40.0); TOTAL PROTEIN 7.1 g/dL (6.4-8.2)
[2019-07-03] MEDS: DAKIN'S SOLUTION 1/4 STRENGTH 1,000 ML IRRIG SOLN EXT SCH ×2 (09:10→22:10)
[2019-07-03] MEDS: RISPERIDONE 1 MG/ML ORAL SOLN NG SCH ×2 (09:16→22:10)
[2019-07-03] MEDS: MIDODRINE 5 MG TABLET PO SCH ×3 (09:16→22:10)
[2019-07-03] MEDS ORDERED: BUPIVACAINE/PF 0.5% ONE (14:28)
[2019-07-03] MEDS ORDERED: FENTANYL PF 250 MCG/5ML ONE ×2 (14:45→16:13)
[2019-07-03] MEDS ORDERED: ROCURONIUM 10MG/ML,5ML ONE ×2 (14:46→16:12)
[2019-07-03] MEDS ORDERED: PROPOFOL 10 MG/ML, 20ML ONE (16:12)
[2019-07-03] MEDS ORDERED: MIDAZOLAM 1 MG/ML, 2ML ONE ×2 (16:13→17:50)
[2019-07-03] MEDS ORDERED: FAT EMUL IV SCH (17:00)
[2019-07-03] MEDS ORDERED: DEXTROSE 70% IV SCH (17:00)
[2019-07-03] MEDS ORDERED: AMINO ACID 10% IV SCH (17:00)
[2019-07-03] MEDS ORDERED: [UNRECOGNIZED DRUG - OTHER] IV SCH (17:00)
[2019-07-03] MEDS ORDERED: SMOF TPN IV SCH (17:00)
[2019-07-03] MEDS: FILTER, DISP 1.2 MICRON FOR TPN/PVN IV PRN (18:43)
[2019-07-03] MEDS: SODIUM CHLORIDE 0.9% IVPB SCH (22:42)
[2019-07-03] MEDS: DAPTOMYCIN IVPB SCH (22:42)
[2019-07-04] MEDS: FENTANYL PF 100 MCG/2ML IVPush PRN ×4 (01:51→17:05)
[2019-07-04] MEDS: DEXMEDETOMIDINE 1,000 MCG in SODIUM CHLORIDE 0.9% 240 ML IV PRN (02:15)
[2019-07-04] MEDS: ALBUTEROL SULFATE 2.5 MG/3 ML NPPB SCH ×6 (02:58→23:20)
[2019-07-04] MEDS: INSULIN LISPRO 100 UNITS/ML, PEN SQ-INSULIN SCH ×8 (04:47→21:31)
[2019-07-04] MEDS: HEPARIN 5,000 UNITS/ML, 1ML SQ SCH ×3 (04:48→21:26)
[2019-07-04 05:04] VITALS: BP 115/62
[2019-07-04 05:07] LABS: BASOPHILS # (AUTO) 0.03 x10^3/uL (0-0.1); BASOPHILS % (AUTO) 0 % (0-1); EOSINOPHILS % (AUTO) 0 % (1-7); LYMPHOCYTES # (AUTO) 0.73 x10^3/uL (1-3.4); LYMPHOCYTES % (AUTO) 7 % (22-44); MD NO; MEAN CORPUSCULAR HEMOGLOBIN 30.2 pg (27.5-34.5); MEAN CORPUSCULAR HGB CONC 33.1 g/dL (33.2-36.2); MEAN CORPUSCULAR VOLUME 91.3 fL (81-97); MEAN PLATELET VOLUME 9.4 fL (7.4-10.4); MONOCYTES # (AUTO) 0.88 x10^3/uL (0.2-0.8); MONOCYTES % (AUTO) 9 % (2-9); NEUTROPHILS # (AUTO) 8.29 x10^3/uL (1.8-6.8); NEUTROPHILS % (AUTO) 83 % (42-75); PLATELET COUNT 199 x10^3/uL (130-400); RED BLOOD COUNT 2.55 x10^6/uL (4.38-5.82); RED CELL DISTRIBUTION WIDTH 16.1 % (9.4-14.8)
[2019-07-04 05:22] LABS: ANION GAP 12 mmol/L (5-15); CALCIUM 9.1 mg/dL (8.5-10.1); CHLORIDE 102 mmol/L (98-107); CREATININE 3.31 mg/dL (0.7-1.3)
[2019-07-04] MEDS: MIDODRINE 5 MG TABLET PO SCH ×3 (10:28→21:26)
[2019-07-04] MEDS: RISPERIDONE 1 MG/ML ORAL SOLN NG SCH ×2 (10:29→21:26)
[2019-07-04] MEDS: DAKIN'S SOLUTION 1/4 STRENGTH 1,000 ML IRRIG SOLN EXT SCH ×2 (10:30→21:27)
[2019-07-04] MEDS ORDERED: SMOF TPN IV SCH (17:00)
[2019-07-04] MEDS ORDERED: DEXTROSE 70% IV SCH (17:00)
[2019-07-04] MEDS ORDERED: [UNRECOGNIZED DRUG - OTHER] IV SCH (17:00)
[2019-07-04] MEDS ORDERED: FAT EMUL IV SCH (17:00)
[2019-07-04] MEDS ORDERED: AMINO ACID 10% IV SCH (17:00)
[2019-07-04] MEDS: ERGOCALCIFEROL 50,000 UNIT CAPSULE PO SCH (17:05)
[2019-07-05] MEDS: INSULIN LISPRO 100 UNITS/ML, PEN SQ-INSULIN SCH ×9 (03:00→22:45)
[2019-07-05] MEDS: ALBUTEROL SULFATE 2.5 MG/3 ML NPPB SCH ×6 (03:47→22:35)
[2019-07-05 04:00] VITALS: BP 94/54
[2019-07-05] MEDS: HEPARIN 5,000 UNITS/ML, 1ML SQ SCH ×3 (04:30→20:10)
[2019-07-05 04:56] LABS: ANION GAP 10 mmol/L (5-15); CALCIUM 9.2 mg/dL (8.5-10.1); CHLORIDE 102 mmol/L (98-107); CREATININE 2.33 mg/dL (0.7-1.3); TRIGLYCERIDES 262 mg/dL (50-200)
[2019-07-05 05:01] LABS: MEAN CORPUSCULAR HEMOGLOBIN 30.4 pg (27.5-34.5); MEAN CORPUSCULAR HGB CONC 33.1 g/dL (33.2-36.2); MEAN CORPUSCULAR VOLUME 91.8 fL (81-97); MEAN PLATELET VOLUME 9.9 fL (7.4-10.4); PLATELET COUNT 203 x10^3/uL (130-400); RED BLOOD COUNT 2.46 x10^6/uL (4.38-5.82); RED CELL DISTRIBUTION WIDTH 15.7 % (9.4-14.8)
[2019-07-05 05:43] LABS: BASOPHILS % (AUTO) 1 % (0-1); EOSINOPHILS # (AUTO) 0.03 x10^3/uL (0-0.4); EOSINOPHILS % (AUTO) 0 % (1-7); LYMPHOCYTES # (AUTO) 1.03 x10^3/uL (1-3.4); LYMPHOCYTES % (AUTO) 10 % (22-44); MD SCAN; MONOCYTES % (AUTO) 9 % (2-9); NEUTROPHILS % (AUTO) 80 % (42-75)
[2019-07-05] MEDS: RISPERIDONE 1 MG/ML ORAL SOLN NG SCH ×2 (08:27→20:11)
[2019-07-05] MEDS: MIDODRINE 5 MG TABLET PO SCH ×3 (08:27→21:00)
[2019-07-05] MEDS: DAKIN'S SOLUTION 1/4 STRENGTH 1,000 ML IRRIG SOLN EXT SCH ×2 (09:00→21:00)
[2019-07-05] MEDS: FENTANYL PF 100 MCG/2ML IVPush PRN ×5 (09:50→18:21)
[2019-07-05] MEDS ORDERED: FAT EMUL IV SCH (17:00)
[2019-07-05] MEDS ORDERED: DEXTROSE 70% IV SCH (17:00)
[2019-07-05] MEDS ORDERED: SMOF TPN IV SCH (17:00)
[2019-07-05] MEDS ORDERED: [UNRECOGNIZED DRUG - OTHER] IV SCH (17:00)
[2019-07-05] MEDS ORDERED: AMINO ACID 10% IV SCH (17:00)
[2019-07-05] MEDS: DAPTOMYCIN IVPB SCH (20:38)
[2019-07-05] MEDS: SODIUM CHLORIDE 0.9% IVPB SCH (20:38)
[2019-07-05] MEDS: ACETAMINOPHEN 650 MG/20.3 ML UDC PO PRN (22:45)
[2019-07-06] MEDS: FENTANYL PF 100 MCG/2ML IVPush PRN ×7 (01:12→22:19)
[2019-07-06] MEDS: DEXMEDETOMIDINE 1,000 MCG in SODIUM CHLORIDE 0.9% 240 ML IV PRN (02:13)
[2019-07-06] MEDS: ALBUTEROL SULFATE 2.5 MG/3 ML NPPB SCH ×6 (03:00→23:30)
[2019-07-06] MEDS: INSULIN LISPRO 100 UNITS/ML, PEN SQ-INSULIN SCH ×8 (03:00→21:18)
[2019-07-06] MEDS: HEPARIN 5,000 UNITS/ML, 1ML SQ SCH ×3 (04:58→22:15)
[2019-07-06 05:04] LABS: ANION GAP 13 mmol/L (5-15); CALCIUM 9.3 mg/dL (8.5-10.1); CHLORIDE 103 mmol/L (98-107); CREATININE 3.42 mg/dL (0.7-1.3)
[2019-07-06 05:41] LABS: BASOPHILS # (AUTO) 0.02 x10^3/uL (0-0.1); BASOPHILS % (AUTO) 0 % (0-1); EOSINOPHILS # (AUTO) 0.07 x10^3/uL (0-0.4); EOSINOPHILS % (AUTO) 1 % (1-7); LYMPHOCYTES # (AUTO) 0.79 x10^3/uL (1-3.4); LYMPHOCYTES % (AUTO) 8 % (22-44); MD SCAN; MEAN CORPUSCULAR HEMOGLOBIN 29.3 pg (27.5-34.5); MEAN CORPUSCULAR HGB CONC 32.5 g/dL (33.2-36.2); MEAN PLATELET VOLUME 9.7 fL (7.4-10.4); MONOCYTES # (AUTO) 0.62 x10^3/uL (0.2-0.8); MONOCYTES % (AUTO) 6 % (2-9); NEUTROPHILS # (AUTO) 8.22 x10^3/uL (1.8-6.8); NEUTROPHILS % (AUTO) 85 % (42-75); PLATELET COUNT 204 x10^3/uL (130-400); RED BLOOD COUNT 2.41 x10^6/uL (4.38-5.82); RED CELL DISTRIBUTION WIDTH 15.8 % (9.4-14.8)
[2019-07-06] MEDS: DAKIN'S SOLUTION 1/4 STRENGTH 1,000 ML IRRIG SOLN EXT SCH ×2 (09:00→23:30)
[2019-07-06] MEDS: RISPERIDONE 1 MG/ML ORAL SOLN NG SCH ×2 (09:00→22:18)
[2019-07-06] MEDS: MIDODRINE 5 MG TABLET PO SCH ×3 (09:00→22:18)
[2019-07-06] MEDS ORDERED: [UNRECOGNIZED DRUG - OTHER] IV SCH (17:00)
[2019-07-06] MEDS ORDERED: FAT EMUL IV SCH (17:00)
[2019-07-06] MEDS ORDERED: AMINO ACID 10% IV SCH (17:00)
[2019-07-06] MEDS ORDERED: DEXTROSE 70% IV SCH (17:00)
[2019-07-06] MEDS ORDERED: SMOF TPN IV SCH (17:00)
[2019-07-06] MEDS: MICAFUNGIN 100 MG in SODIUM CHLORIDE 0.9% 100 ML IV SCH (17:11)
[2019-07-06] MEDS: ERTAPENEM 0.5 GM in SODIUM CHLORIDE 0.9% 50 ML IV SCH (17:16)
[2019-07-06] MEDS: TRAZODONE 150MG TABLET PO SCH (22:17)
[2019-07-06] MEDS: ACETAMINOPHEN 650 MG/20.3 ML UDC PO PRN (22:21)
[2019-07-07] MEDS: ALBUTEROL SULFATE 2.5 MG/3 ML NPPB SCH ×6 (02:12→22:09)
[2019-07-07] MEDS: INSULIN LISPRO 100 UNITS/ML, PEN SQ-INSULIN SCH ×8 (04:09→23:03)
[2019-07-07 04:31] LABS: ANION GAP 12 mmol/L (5-15); CALCIUM 9.3 mg/dL (8.5-10.1); CHLORIDE 102 mmol/L (98-107); CREATININE 2.96 mg/dL (0.7-1.3)
[2019-07-07] MEDS: HEPARIN 5,000 UNITS/ML, 1ML SQ SCH ×3 (06:03→20:33)
[2019-07-07] MEDS: FENTANYL PF 100 MCG/2ML IVPush PRN (06:04)
[2019-07-07 06:09] LABS: MEAN CORPUSCULAR HEMOGLOBIN 29.9 pg (27.5-34.5); MEAN CORPUSCULAR HGB CONC 32.8 g/dL (33.2-36.2); MEAN CORPUSCULAR VOLUME 91.3 fL (81-97); MEAN PLATELET VOLUME 9.4 fL (7.4-10.4); PLATELET COUNT 208 x10^3/uL (130-400); RED BLOOD COUNT 2.64 x10^6/uL (4.38-5.82); RED CELL DISTRIBUTION WIDTH 15.8 % (9.4-14.8)
[2019-07-07 07:10] LABS: BASOPHILS # (AUTO) 0.01 x10^3/uL (0-0.1); BASOPHILS % (AUTO) 0 % (0-1); EOSINOPHILS # (AUTO) 0.03 x10^3/uL (0-0.4); EOSINOPHILS % (AUTO) 0 % (1-7); LYMPHOCYTES % (AUTO) 4 % (22-44); MD SCAN; MONOCYTES # (AUTO) 0.43 x10^3/uL (0.2-0.8); MONOCYTES % (AUTO) 4 % (2-9); NEUTROPHILS % (AUTO) 92 % (42-75)
[2019-07-07] MEDS: DAKIN'S SOLUTION 1/4 STRENGTH 1,000 ML IRRIG SOLN EXT SCH (08:41)
[2019-07-07] MEDS: RISPERIDONE 1 MG/ML ORAL SOLN NG SCH ×2 (08:49→21:55)
[2019-07-07] MEDS: MIDODRINE 5 MG TABLET PO SCH ×3 (08:50→21:56)
[2019-07-07] MEDS: ONDANSETRON 2MG/ML, 2ML IVPush PRN (10:03)
[2019-07-07] MEDS: ACETAMINOPHEN 650 MG/20.3 ML UDC PO PRN ×3 (11:20→23:37)
[2019-07-07] MEDS: MICAFUNGIN 100 MG in SODIUM CHLORIDE 0.9% 100 ML IV SCH (16:21)
[2019-07-07] MEDS: FILTER, DISP 1.2 MICRON FOR TPN/PVN IV PRN (16:39)
[2019-07-07] MEDS ORDERED: DEXTROSE 70% IV SCH (17:00)
[2019-07-07] MEDS ORDERED: SMOF TPN IV SCH (17:00)
[2019-07-07] MEDS ORDERED: [UNRECOGNIZED DRUG - OTHER] IV SCH (17:00)
[2019-07-07] MEDS ORDERED: AMINO ACID 10% IV SCH (17:00)
[2019-07-07] MEDS ORDERED: FAT EMUL IV SCH (17:00)
[2019-07-07] MEDS: ERTAPENEM 0.5 GM in SODIUM CHLORIDE 0.9% 50 ML IV SCH (18:21)
[2019-07-07] MEDS: SODIUM CHLORIDE 0.9% IVPB SCH (20:35)
[2019-07-07] MEDS: DAPTOMYCIN IVPB SCH (20:35)
[2019-07-07] MEDS: TRAZODONE 150MG TABLET PO SCH (21:55)
[2019-07-08] MEDS: ALBUTEROL SULFATE 2.5 MG/3 ML NPPB SCH ×6 (02:07→22:08)
[2019-07-08] MEDS: INSULIN LISPRO 100 UNITS/ML, PEN SQ-INSULIN SCH ×5 (04:33→21:43)
[2019-07-08 04:48] LABS: MEAN CORPUSCULAR HEMOGLOBIN 29.8 pg (27.5-34.5); MEAN CORPUSCULAR HGB CONC 32.8 g/dL (33.2-36.2); MEAN CORPUSCULAR VOLUME 90.8 fL (81-97); MEAN PLATELET VOLUME 9.8 fL (7.4-10.4); PLATELET COUNT 199 x10^3/uL (130-400); RED BLOOD COUNT 2.53 x10^6/uL (4.38-5.82)
[2019-07-08 04:58] LABS: ANION GAP 13 mmol/L (5-15); CALCIUM 9.3 mg/dL (8.5-10.1); CHLORIDE 103 mmol/L (98-107); CREATININE 4.44 mg/dL (0.7-1.3); TRIGLYCERIDES 242 mg/dL (50-200)
[2019-07-08] MEDS: HEPARIN 5,000 UNITS/ML, 1ML SQ SCH ×3 (05:18→21:42)
[2019-07-08 05:35] LABS: MD YES
[2019-07-08 05:39] LABS: ANISOCYTOSIS 1+; BAND#(MANUAL) 0.43 x10^3/uL; BANDS%(MANUAL) 4 % (0-7); LYMPH#(MANUAL) 0.32 x10^3/uL (1-3.4); LYMPHS% (MANUAL) 3 % (22-44); METAMYELOCYTES# (MANUAL) 0.22 x10^3/uL (0-0); METAMYELOCYTES% (MANUAL) 2 % (0-1); MONOS#(MANUAL) 0.22 x10^3/uL (0.3-2.7); MONOS% (MANUAL) 2 % (2-9); MYELOCYTES# (MANUAL) 0.32 x10^3/uL (0-0); MYELOCYTES% (MANUAL) 3 % (0-0); SEG#(MANUAL) 9.29 x10^3/uL (1.8-6.8); SEGS% (MANUAL) 86 % (42-75); TOXIC GRAN 1+
[2019-07-08 05:40] LABS: <PLATELET ESTIMATE> ADEQUATE; <PLT MORPHOLOGY> NORMAL PLT MORPH
[2019-07-08] MEDS: ACETAMINOPHEN 650 MG/20.3 ML UDC PO PRN ×2 (06:30→19:17)
[2019-07-08] MEDS: MIDODRINE 5 MG TABLET PO SCH ×3 (09:52→21:42)
[2019-07-08] MEDS: INSULIN GLARGINE 100 UNITS/ML, PEN SQ-INSULIN SCH ×2 (10:07→21:43)
[2019-07-08] MEDS: ERTAPENEM 0.5 GM in SODIUM CHLORIDE 0.9% 50 ML IV SCH (16:53)
[2019-07-08] MEDS: MICAFUNGIN 100 MG in SODIUM CHLORIDE 0.9% 100 ML IV SCH (16:53)
[2019-07-08] MEDS: TRAZODONE 150MG TABLET PO SCH (21:42)
[2019-07-09] MEDS: ALBUTEROL SULFATE 2.5 MG/3 ML NPPB SCH ×6 (03:00→22:20)
[2019-07-09 04:24] LABS: MEAN CORPUSCULAR HEMOGLOBIN 28.8 pg (27.5-34.5); MEAN CORPUSCULAR HGB CONC 32.3 g/dL (33.2-36.2); MEAN CORPUSCULAR VOLUME 89.2 fL (81-97); MEAN PLATELET VOLUME 9.4 fL (7.4-10.4); PLATELET COUNT 193 x10^3/uL (130-400); RED BLOOD COUNT 2.62 x10^6/uL (4.38-5.82); RED CELL DISTRIBUTION WIDTH 16.4 % (9.4-14.8)
[2019-07-09 04:34] LABS: MD YES
[2019-07-09 04:36] LABS: ANION GAP 13 mmol/L (5-15); CALCIUM 8.6 mg/dL (8.5-10.1); CHLORIDE 98 mmol/L (98-107); CREATININE 3.09 mg/dL (0.7-1.3)
[2019-07-09 04:42] LABS: BAND#(MANUAL) 0.33 x10^3/uL; BANDS%(MANUAL) 3 % (0-7); LYMPH#(MANUAL) 0.99 x10^3/uL (1-3.4); LYMPHS% (MANUAL) 9 % (22-44); METAMYELOCYTES# (MANUAL) 0.22 x10^3/uL (0-0); METAMYELOCYTES% (MANUAL) 2 % (0-1); MONOS#(MANUAL) 0.55 x10^3/uL (0.3-2.7); MONOS% (MANUAL) 5 % (2-9)
[2019-07-09 04:43] LABS: <PLATELET ESTIMATE> ADEQUATE; <PLT MORPHOLOGY> NORMAL PLT MORPH; ANISOCYTOSIS 1+; EOS#(MANUAL) 0.11 x10^3/uL (0.0-0.4); EOS% (MANUAL) 1 % (1-7); MYELOCYTES# (MANUAL) 0.11 x10^3/uL (0-0); MYELOCYTES% (MANUAL) 1 % (0-0); POLYCHROMASIA 1+; SEG#(MANUAL) 8.69 x10^3/uL (1.8-6.8); SEGS% (MANUAL) 79 % (42-75)
[2019-07-09] MEDS: INSULIN LISPRO 100 UNITS/ML, PEN SQ-INSULIN SCH ×4 (04:52→20:45)
[2019-07-09] MEDS: HEPARIN 5,000 UNITS/ML, 1ML SQ SCH ×3 (05:59→20:34)
[2019-07-09] MEDS: MIDODRINE 5 MG TABLET PO SCH ×3 (08:48→20:34)
[2019-07-09] MEDS: CHOLESTYRAMINE LIGHT 4GM PACKET PO SCH ×2 (08:48→20:35)
[2019-07-09] MEDS: INSULIN GLARGINE 100 UNITS/ML, PEN SQ-INSULIN SCH ×2 (08:50→20:46)
[2019-07-09] MEDS: MICAFUNGIN 100 MG in SODIUM CHLORIDE 0.9% 100 ML IV SCH (16:23)
[2019-07-09] MEDS: ERTAPENEM 0.5 GM in SODIUM CHLORIDE 0.9% 50 ML IV SCH (16:23)
[2019-07-09] MEDS: DAPTOMYCIN IVPB SCH (20:34)
[2019-07-09] MEDS: SODIUM CHLORIDE 0.9% IVPB SCH (20:34)
[2019-07-09] MEDS: ACETAMINOPHEN 650 MG/20.3 ML UDC PO PRN (20:34)
[2019-07-09] MEDS: TRAZODONE 150MG TABLET PO SCH (20:35)
[2019-07-10] MEDS: ALBUTEROL SULFATE 2.5 MG/3 ML NPPB SCH ×6 (02:05→22:03)
[2019-07-10 03:24] LABS: MEAN CORPUSCULAR HEMOGLOBIN 29.6 pg (27.5-34.5); MEAN CORPUSCULAR HGB CONC 33.1 g/dL (33.2-36.2); MEAN CORPUSCULAR VOLUME 89.6 fL (81-97); MEAN PLATELET VOLUME 9.9 fL (7.4-10.4); PLATELET COUNT 186 x10^3/uL (130-400); RED BLOOD COUNT 2.47 x10^6/uL (4.38-5.82); RED CELL DISTRIBUTION WIDTH 15.9 % (9.4-14.8)
[2019-07-10 03:32] LABS: ANION GAP 17 mmol/L (5-15); CALCIUM 8.6 mg/dL (8.5-10.1); CHLORIDE 99 mmol/L (98-107)
[2019-07-10 03:55] LABS: MD YES
[2019-07-10 03:59] LABS: ANISOCYTOSIS 1+; BAND#(MANUAL) 0.09 x10^3/uL; BANDS%(MANUAL) 1 % (0-7); LYMPH#(MANUAL) 1.57 x10^3/uL (1-3.4); LYMPHS% (MANUAL) 18 % (22-44); MONOS#(MANUAL) 0.78 x10^3/uL (0.3-2.7); MONOS% (MANUAL) 9 % (2-9); MYELOCYTES# (MANUAL) 0.09 x10^3/uL (0-0); MYELOCYTES% (MANUAL) 1 % (0-0); POLYCHROMASIA 1+; SEG#(MANUAL) 6.18 x10^3/uL (1.8-6.8); SEGS% (MANUAL) 71 % (42-75)
[2019-07-10 04:00] LABS: <PLATELET ESTIMATE> ADEQUATE
[2019-07-10 04:01] LABS: <PLT MORPHOLOGY> NORMAL PLT MORPH
[2019-07-10] MEDS: INSULIN LISPRO 100 UNITS/ML, PEN SQ-INSULIN SCH ×4 (04:06→20:11)
[2019-07-10] MEDS: HEPARIN 5,000 UNITS/ML, 1ML SQ SCH ×3 (04:36→20:10)
[2019-07-10] MEDS: CHOLESTYRAMINE LIGHT 4GM PACKET PO SCH ×2 (09:15→20:10)
[2019-07-10] MEDS: INSULIN GLARGINE 100 UNITS/ML, PEN SQ-INSULIN SCH ×2 (09:15→20:11)
[2019-07-10] MEDS: MIDODRINE 5 MG TABLET PO SCH ×3 (09:15→20:10)
[2019-07-10] MEDS: FENTANYL PF 100 MCG/2ML IVPush PRN ×2 (13:34→16:31)
[2019-07-10] MEDS: MICAFUNGIN 100 MG in SODIUM CHLORIDE 0.9% 100 ML IV SCH (16:27)
[2019-07-10] MEDS: METOPROLOL TARTRATE 25 MG TAB PO SCH (17:09)
[2019-07-10] MEDS: ERTAPENEM 0.5 GM in SODIUM CHLORIDE 0.9% 50 ML IV SCH (17:09)
[2019-07-10] MEDS: TRAZODONE 150MG TABLET PO SCH (20:10)
[2019-07-11] MEDS: ALBUTEROL SULFATE 2.5 MG/3 ML NPPB SCH ×6 (02:19→23:00)
[2019-07-11] MEDS: INSULIN LISPRO 100 UNITS/ML, PEN SQ-INSULIN SCH ×4 (03:42→20:15)
[2019-07-11] MEDS: HEPARIN 5,000 UNITS/ML, 1ML SQ SCH ×3 (03:42→20:12)
[2019-07-11 04:07] LABS: ANION GAP 15 mmol/L (5-15); CHLORIDE 99 mmol/L (98-107); CREATININE 2.86 mg/dL (0.7-1.3); TRIGLYCERIDES 583 mg/dL (50-200)
[2019-07-11 04:20] LABS: MEAN CORPUSCULAR HEMOGLOBIN 29.3 pg (27.5-34.5); MEAN CORPUSCULAR HGB CONC 32.9 g/dL (33.2-36.2); MEAN CORPUSCULAR VOLUME 89.1 fL (81-97); MEAN PLATELET VOLUME 9.5 fL (7.4-10.4); PLATELET COUNT 209 x10^3/uL (130-400); RED BLOOD COUNT 2.49 x10^6/uL (4.38-5.82); RED CELL DISTRIBUTION WIDTH 16.4 % (9.4-14.8)
[2019-07-11 04:31] LABS: BASOPHILS # (AUTO) 0.05 x10^3/uL (0-0.1); BASOPHILS % (AUTO) 0 % (0-1); EOSINOPHILS # (AUTO) 0.16 x10^3/uL (0-0.4); EOSINOPHILS % (AUTO) 1 % (1-7); LYMPHOCYTES # (AUTO) 1.43 x10^3/uL (1-3.4); LYMPHOCYTES % (AUTO) 12 % (22-44); MD SCAN; MONOCYTES # (AUTO) 0.88 x10^3/uL (0.2-0.8); MONOCYTES % (AUTO) 8 % (2-9); NEUTROPHILS # (AUTO) 9.06 x10^3/uL (1.8-6.8); NEUTROPHILS % (AUTO) 78 % (42-75)
[2019-07-11] MEDS: METOPROLOL TARTRATE 25 MG TAB PO SCH ×2 (05:05→17:01)
[2019-07-11] MEDS: INSULIN GLARGINE 100 UNITS/ML, PEN SQ-INSULIN SCH ×2 (07:45→20:16)
[2019-07-11] MEDS: CHOLESTYRAMINE LIGHT 4GM PACKET PO SCH ×2 (07:45→20:11)
[2019-07-11] MEDS: MIDODRINE 5 MG TABLET PO SCH ×4 (07:45→20:11)
[2019-07-11] MEDS: FENTANYL PF 100 MCG/2ML IVPush PRN ×3 (12:30→21:54)
[2019-07-11] MEDS: ERGOCALCIFEROL 50,000 UNIT CAPSULE PO SCH (14:48)
[2019-07-11] MEDS: ERTAPENEM 1 GM in SODIUM CHLORIDE 0.9% 50 ML IV SCH (15:58)
[2019-07-11] MEDS: MICAFUNGIN 100 MG in SODIUM CHLORIDE 0.9% 100 ML IV SCH (15:58)
[2019-07-11] MEDS: ACETAMINOPHEN 650 MG/20.3 ML UDC PO PRN (18:32)
[2019-07-11] MEDS: SODIUM CHLORIDE 0.9% IVPB SCH (20:11)
[2019-07-11] MEDS: DAPTOMYCIN IVPB SCH (20:11)
[2019-07-11] MEDS: TRAZODONE 150MG TABLET PO SCH (20:12)
[2019-07-12] MEDS: ALBUTEROL SULFATE 2.5 MG/3 ML NPPB SCH ×6 (02:29→22:20)
[2019-07-12] MEDS: HEPARIN 5,000 UNITS/ML, 1ML SQ SCH ×3 (04:09→20:12)
[2019-07-12] MEDS: INSULIN LISPRO 100 UNITS/ML, PEN SQ-INSULIN SCH ×4 (04:10→20:15)
[2019-07-12 04:25] LABS: MEAN CORPUSCULAR HEMOGLOBIN 29.6 pg (27.5-34.5); MEAN CORPUSCULAR HGB CONC 33.2 g/dL (33.2-36.2); MEAN CORPUSCULAR VOLUME 89.1 fL (81-97); MEAN PLATELET VOLUME 9.3 fL (7.4-10.4); PLATELET COUNT 224 x10^3/uL (130-400); RED BLOOD COUNT 2.49 x10^6/uL (4.38-5.82); RED CELL DISTRIBUTION WIDTH 16.4 % (9.4-14.8)
[2019-07-12 04:31] LABS: ANION GAP 19 mmol/L (5-15); CALCIUM 9.2 mg/dL (8.5-10.1); CHLORIDE 97 mmol/L (98-107); CREATININE 3.82 mg/dL (0.7-1.3)
[2019-07-12 05:05] LABS: BASOPHILS % (AUTO) 1 % (0-1); EOSINOPHILS # (AUTO) 0.15 x10^3/uL (0-0.4); EOSINOPHILS % (AUTO) 1 % (1-7); LYMPHOCYTES # (AUTO) 1.99 x10^3/uL (1-3.4); LYMPHOCYTES % (AUTO) 13 % (22-44); MD SCAN; MONOCYTES # (AUTO) 1.03 x10^3/uL (0.2-0.8); MONOCYTES % (AUTO) 7 % (2-9); NEUTROPHILS # (AUTO) 12.22 x10^3/uL (1.8-6.8); NEUTROPHILS % (AUTO) 78 % (42-75)
[2019-07-12] MEDS: METOPROLOL TARTRATE 25 MG TAB PO SCH ×2 (05:24→16:46)
[2019-07-12] MEDS: FENTANYL PF 100 MCG/2ML IVPush PRN ×6 (05:24→22:29)
[2019-07-12] MEDS: MIDODRINE 5 MG TABLET PO SCH ×3 (07:39→20:11)
[2019-07-12] MEDS: INSULIN GLARGINE 100 UNITS/ML, PEN SQ-INSULIN SCH ×2 (07:40→20:15)
[2019-07-12] MEDS: CHOLESTYRAMINE LIGHT 4GM PACKET PO SCH ×2 (11:48→20:11)
[2019-07-12] MEDS: ERTAPENEM 1 GM in SODIUM CHLORIDE 0.9% 50 ML IV SCH (15:40)
[2019-07-12] MEDS: MICAFUNGIN 100 MG in SODIUM CHLORIDE 0.9% 100 ML IV SCH (16:42)
[2019-07-12] MEDS: TRAZODONE 150MG TABLET PO SCH (20:11)
[2019-07-13] MEDS: FENTANYL PF 100 MCG/2ML IVPush PRN ×4 (00:33→11:32)
[2019-07-13] MEDS: ALBUTEROL SULFATE 2.5 MG/3 ML NPPB SCH ×6 (02:21→22:01)
[2019-07-13] MEDS: INSULIN LISPRO 100 UNITS/ML, PEN SQ-INSULIN SCH ×4 (03:14→20:34)
[2019-07-13] MEDS: HEPARIN 5,000 UNITS/ML, 1ML SQ SCH ×3 (03:56→20:32)
[2019-07-13 04:42] LABS: MEAN CORPUSCULAR HEMOGLOBIN 28.7 pg (27.5-34.5); MEAN CORPUSCULAR HGB CONC 32.4 g/dL (33.2-36.2); MEAN CORPUSCULAR VOLUME 88.6 fL (81-97); MEAN PLATELET VOLUME 9.3 fL (7.4-10.4); PLATELET COUNT 249 x10^3/uL (130-400); RED BLOOD COUNT 2.63 x10^6/uL (4.38-5.82); RED CELL DISTRIBUTION WIDTH 16.4 % (9.4-14.8)
[2019-07-13 04:48] LABS: ANION GAP 15 mmol/L (5-15); CALCIUM 9.1 mg/dL (8.5-10.1); CHLORIDE 100 mmol/L (98-107); CREATININE 2.56 mg/dL (0.7-1.3)
[2019-07-13] MEDS: METOPROLOL TARTRATE 25 MG TAB PO SCH ×2 (05:47→18:00)
[2019-07-13 05:54] LABS: MD YES
[2019-07-13 05:55] LABS: ANISOCYTOSIS 1+; EOS% (MANUAL) 2 % (1-7); LYMPH#(MANUAL) 1.21 x10^3/uL (1-3.4); LYMPHS% (MANUAL) 6 % (22-44); MONOS% (MANUAL) 3 % (2-9); MYELOCYTES% (MANUAL) 2 % (0-0); POLYCHROMASIA 1+; SEG#(MANUAL) 17.49 x10^3/uL (1.8-6.8); SEGS% (MANUAL) 87 % (42-75)
[2019-07-13 05:56] LABS: <PLATELET ESTIMATE> ADEQUATE; <PLT MORPHOLOGY> NORMAL PLT MORPH
[2019-07-13] MEDS ORDERED: DEXMEDETOMIDINE 200 MCG in SODIUM CHLORIDE 0.9% 48 ML IV PRN (08:30)
[2019-07-13] MEDS ORDERED: FENTANYL 50 MCG PATCH TD SCH (09:00)
[2019-07-13] MEDS: DAKIN'S SOLUTION 1/4 STRENGTH 1,000 ML IRRIG SOLN EXT SCH ×3 (09:00→21:00)
[2019-07-13] MEDS ORDERED: VECURONIUM 10 MG ONE (10:27)
[2019-07-13] MEDS ORDERED: MIDAZOLAM 1 MG/ML, 5ML IVPush PRN (10:30)
[2019-07-13] MEDS ORDERED: VECURONIUM 10 MG IVPush ONE (10:30)
[2019-07-13] MEDS: MIDODRINE 5 MG TABLET PO SCH ×3 (11:07→20:33)
[2019-07-13] MEDS: ACETAMINOPHEN 650 MG/20.3 ML UDC PO PRN ×2 (15:06→20:33)
[2019-07-13] MEDS ORDERED: DEXMEDETOMIDINE 1,000 MCG in SODIUM CHLORIDE 0.9% 240 ML IV PRN (15:30)
[2019-07-13] MEDS: ERTAPENEM 1 GM in SODIUM CHLORIDE 0.9% 50 ML IV SCH (16:05)
[2019-07-13] MEDS: MICAFUNGIN 100 MG in SODIUM CHLORIDE 0.9% 100 ML IV SCH (16:05)
[2019-07-13] MEDS: SODIUM CHLORIDE 0.9% IVPB SCH (20:32)
[2019-07-13] MEDS: DAPTOMYCIN IVPB SCH (20:32)
[2019-07-13] MEDS: TRAZODONE 150MG TABLET PO SCH (20:34)
[2019-07-13] MEDS: INSULIN GLARGINE 100 UNITS/ML, PEN SQ-INSULIN SCH (20:35)
[2019-07-14] MEDS: ALBUTEROL SULFATE 2.5 MG/3 ML NPPB SCH ×6 (02:11→22:24)
[2019-07-14] MEDS: INSULIN LISPRO 100 UNITS/ML, PEN SQ-INSULIN SCH ×4 (02:18→21:00)
[2019-07-14] MEDS: HEPARIN 5,000 UNITS/ML, 1ML SQ SCH ×3 (04:15→21:00)
[2019-07-14 04:17] LABS: MEAN CORPUSCULAR HEMOGLOBIN 29.6 pg (27.5-34.5); MEAN CORPUSCULAR VOLUME 89.7 fL (81-97); MEAN PLATELET VOLUME 9.7 fL (7.4-10.4); PLATELET COUNT 279 x10^3/uL (130-400); RED BLOOD COUNT 2.41 x10^6/uL (4.38-5.82); RED CELL DISTRIBUTION WIDTH 16.3 % (9.4-14.8)
[2019-07-14 04:21] LABS: MD YES
[2019-07-14 04:28] LABS: ANION GAP 17 mmol/L (5-15); CALCIUM 9.2 mg/dL (8.5-10.1); CHLORIDE 101 mmol/L (98-107)
[2019-07-14 04:29] LABS: CREATININE 3.72 mg/dL (0.7-1.3); TRIGLYCERIDES 548 mg/dL (50-200)
[2019-07-14 04:39] LABS: ANISOCYTOSIS 1+; BAND#(MANUAL) 0.34 x10^3/uL; BANDS%(MANUAL) 2 % (0-7); EOS#(MANUAL) 0.34 x10^3/uL (0.0-0.4); EOS% (MANUAL) 2 % (1-7); LYMPH#(MANUAL) 1.55 x10^3/uL (1-3.4); LYMPHS% (MANUAL) 9 % (22-44); METAMYELOCYTES# (MANUAL) 0.69 x10^3/uL (0-0); METAMYELOCYTES% (MANUAL) 4 % (0-1); MONOS#(MANUAL) 0.52 x10^3/uL (0.3-2.7); MONOS% (MANUAL) 3 % (2-9); MYELOCYTES# (MANUAL) 0.86 x10^3/uL (0-0); MYELOCYTES% (MANUAL) 5 % (0-0); POLYCHROMASIA 1+; SEGS% (MANUAL) 75 % (42-75); TEAR DROPS 1+
[2019-07-14 04:40] LABS: <PLATELET ESTIMATE> ADEQUATE; <PLT MORPHOLOGY> NORMAL PLT MORPH
[2019-07-14] MEDS: METOPROLOL TARTRATE 25 MG TAB PO SCH ×2 (05:27→17:41)
[2019-07-14] MEDS ORDERED: FENTANYL 25 MCG PATCH ONE (08:19)
[2019-07-14] MEDS: FENTANYL 75 MCG PATCH TD SCH (08:30)
[2019-07-14] MEDS ORDERED: FENTANYL 25 MCG PATCH TD ONE (08:30)
[2019-07-14] MEDS: DAKIN'S SOLUTION 1/4 STRENGTH 1,000 ML IRRIG SOLN EXT SCH ×2 (08:36→21:00)
[2019-07-14] MEDS: MIDODRINE 5 MG TABLET PO SCH ×3 (08:37→21:00)
[2019-07-14] MEDS: INSULIN GLARGINE 100 UNITS/ML, PEN SQ-INSULIN SCH ×2 (08:39→21:00)
[2019-07-14] MEDS: FENTANYL PF 100 MCG/2ML IVPush PRN (09:10)
[2019-07-14] MEDS: ALBUMIN HUMAN 25% 100 ML IV PRN (11:39)
[2019-07-14] MEDS: MICAFUNGIN 100 MG in SODIUM CHLORIDE 0.9% 100 ML IV SCH (16:10)
[2019-07-14] MEDS: ERTAPENEM 1 GM in SODIUM CHLORIDE 0.9% 50 ML IV SCH (16:10)
[2019-07-14] MEDS ORDERED: ALBUMIN HUMAN 25% 100 ML IV ONE (20:30)
[2019-07-14] MEDS: TRAZODONE 150MG TABLET PO SCH (21:00)
[2019-07-14] MEDS: LORazepam 2 MG/ML, 1ML IVPush PRN (21:00)
[2019-07-15] MEDS: NOREPINEPHRINE 4 MG in SODIUM CHLORIDE 0.9% 246 ML IV PRN (01:30)
[2019-07-15] MEDS: ALBUTEROL SULFATE 2.5 MG/3 ML NPPB SCH ×6 (02:08→23:00)
[2019-07-15] MEDS: INSULIN LISPRO 100 UNITS/ML, PEN SQ-INSULIN SCH ×4 (03:00→21:00)
[2019-07-15] MEDS: HEPARIN 5,000 UNITS/ML, 1ML SQ SCH ×3 (05:12→21:45)
[2019-07-15 05:43] LABS: ANION GAP 11 mmol/L (5-15); CALCIUM 9.2 mg/dL (8.5-10.1); CHLORIDE 101 mmol/L (98-107); CREATININE 1.92 mg/dL (0.7-1.3)
[2019-07-15 05:46] LABS: MEAN CORPUSCULAR HEMOGLOBIN 30.1 pg (27.5-34.5); MEAN CORPUSCULAR HGB CONC 33.5 g/dL (33.2-36.2); MEAN CORPUSCULAR VOLUME 89.8 fL (81-97); MEAN PLATELET VOLUME 9.2 fL (7.4-10.4); PLATELET COUNT 284 x10^3/uL (130-400); RED BLOOD COUNT 2.25 x10^6/uL (4.38-5.82); RED CELL DISTRIBUTION WIDTH 16.8 % (9.4-14.8)
[2019-07-15] MEDS: MIDODRINE 5 MG TABLET PO SCH ×4 (06:13→21:46)
[2019-07-15 06:31] LABS: MD YES
[2019-07-15 06:32] LABS: BAND#(MANUAL) 0.72 x10^3/uL; BANDS%(MANUAL) 5 % (0-7); EOS#(MANUAL) 0.29 x10^3/uL (0.0-0.4); EOS% (MANUAL) 2 % (1-7); LYMPH#(MANUAL) 1.86 x10^3/uL (1-3.4); LYMPHS% (MANUAL) 13 % (22-44); METAMYELOCYTES# (MANUAL) 0.72 x10^3/uL (0-0); METAMYELOCYTES% (MANUAL) 5 % (0-1); MONOS#(MANUAL) 0.29 x10^3/uL (0.3-2.7); MONOS% (MANUAL) 2 % (2-9); MYELOCYTES# (MANUAL) 0.14 x10^3/uL (0-0); MYELOCYTES% (MANUAL) 1 % (0-0); SEGS% (MANUAL) 72 % (42-75)
[2019-07-15 06:33] LABS: ANISOCYTOSIS 1+; POLYCHROMASIA 1+
[2019-07-15 06:34] LABS: <PLATELET ESTIMATE> ADEQUATE; <PLT MORPHOLOGY> NORMAL PLT MORPH
[2019-07-15 08:32] VITALS: BP 90/54
[2019-07-15] MEDS: INSULIN GLARGINE 100 UNITS/ML, PEN SQ-INSULIN SCH ×2 (08:44→21:49)
[2019-07-15 08:45] VITALS: BP 84/54
[2019-07-15 09:00] VITALS: BP 91/55
[2019-07-15] MEDS: DAKIN'S SOLUTION 1/4 STRENGTH 1,000 ML IRRIG SOLN EXT SCH ×2 (09:00→21:00)
[2019-07-15] MEDS ORDERED: FENTANYL PF 250 MCG/5ML ONE (09:49)
[2019-07-15] MEDS ORDERED: ROCURONIUM 10MG/ML,5ML ONE (09:51)
[2019-07-15 09:59] VITALS: BP 93/57
[2019-07-15 10:30] VITALS: BP 114/64
[2019-07-15] MEDS ORDERED: NOREPINEPHRINE 1 MG/ML, 4ML ONE ×2 (10:42)
[2019-07-15] MEDS ORDERED: PHENYLEPHRINE 10 MG/ML ONE (10:42)
[2019-07-15] MEDS ORDERED: NEOSTIGMINE 1 MG/ML, 10ML ONE (11:12)
[2019-07-15] MEDS: FENTANYL PF 100 MCG/2ML IVPush PRN ×2 (13:02→18:38)
[2019-07-15] MEDS: OXYcodone IR 5MG TABLET PO PRN (15:43)
[2019-07-15] MEDS: ERTAPENEM 1 GM in SODIUM CHLORIDE 0.9% 50 ML IV SCH (15:44)
[2019-07-15] MEDS: MICAFUNGIN 100 MG in SODIUM CHLORIDE 0.9% 100 ML IV SCH (15:44)
[2019-07-15] MEDS: DAPTOMYCIN IVPB SCH (19:35)
[2019-07-15] MEDS: SODIUM CHLORIDE 0.9% IVPB SCH (19:35)
[2019-07-15] MEDS: TRAZODONE 150MG TABLET PO SCH (21:47)
[2019-07-16] MEDS: ALBUTEROL SULFATE 2.5 MG/3 ML NPPB SCH ×6 (01:10→22:24)
[2019-07-16] MEDS: INSULIN LISPRO 100 UNITS/ML, PEN SQ-INSULIN SCH ×4 (03:14→21:40)
[2019-07-16] MEDS: FENTANYL PF 100 MCG/2ML IVPush PRN ×2 (04:12→12:25)
[2019-07-16] MEDS: HEPARIN 5,000 UNITS/ML, 1ML SQ SCH ×3 (04:12→21:38)
[2019-07-16 04:43] LABS: MEAN CORPUSCULAR HEMOGLOBIN 29.8 pg (27.5-34.5); MEAN CORPUSCULAR HGB CONC 32.9 g/dL (33.2-36.2); MEAN CORPUSCULAR VOLUME 90.7 fL (81-97); MEAN PLATELET VOLUME 9.3 fL (7.4-10.4); PLATELET COUNT 332 x10^3/uL (130-400); RED BLOOD COUNT 2.43 x10^6/uL (4.38-5.82); RED CELL DISTRIBUTION WIDTH 17.1 % (9.4-14.8)
[2019-07-16 04:48] LABS: ANION GAP 13 mmol/L (5-15); CALCIUM 8.7 mg/dL (8.5-10.1); CHLORIDE 101 mmol/L (98-107)
[2019-07-16 04:51] LABS: MD YES
[2019-07-16 05:04] LABS: BAND#(MANUAL) 0.44 x10^3/uL; BANDS%(MANUAL) 3 % (0-7); EOS#(MANUAL) 0.59 x10^3/uL (0.0-0.4); EOS% (MANUAL) 4 % (1-7); LYMPH#(MANUAL) 1.63 x10^3/uL (1-3.4); LYMPHS% (MANUAL) 11 % (22-44); METAMYELOCYTES# (MANUAL) 0.44 x10^3/uL (0-0); METAMYELOCYTES% (MANUAL) 3 % (0-1); MONOS#(MANUAL) 0.74 x10^3/uL (0.3-2.7); MONOS% (MANUAL) 5 % (2-9); MYELOCYTES# (MANUAL) 0.15 x10^3/uL (0-0); MYELOCYTES% (MANUAL) 1 % (0-0); SEGS% (MANUAL) 73 % (42-75)
[2019-07-16 05:05] LABS: <PLATELET ESTIMATE> ADEQUATE; <PLT MORPHOLOGY> NORMAL PLT MORPH; ANISOCYTOSIS 1+; POLYCHROMASIA 1+
[2019-07-16] MEDS: MIDODRINE 5 MG TABLET PO SCH ×4 (07:17→21:37)
[2019-07-16] MEDS: DAKIN'S SOLUTION 1/4 STRENGTH 1,000 ML IRRIG SOLN EXT SCH ×2 (09:00→21:00)
[2019-07-16] MEDS: INSULIN GLARGINE 100 UNITS/ML, PEN SQ-INSULIN SCH ×2 (09:48→21:39)
[2019-07-16] MEDS: DEXMEDETOMIDINE 200 MCG in SODIUM CHLORIDE 0.9% 48 ML IV PRN ×2 (11:54→15:52)
[2019-07-16] MEDS: ERTAPENEM 1 GM in SODIUM CHLORIDE 0.9% 50 ML IV SCH (15:00)
[2019-07-16] MEDS: MICAFUNGIN 100 MG in SODIUM CHLORIDE 0.9% 100 ML IV SCH (15:00)
[2019-07-16] MEDS: ACETAMINOPHEN 650 MG/20.3 ML UDC PO PRN (15:52)
[2019-07-16] MEDS ORDERED: FENTANYL 50 MCG PATCH ONE (17:36)
[2019-07-16] MEDS ORDERED: FENTANYL 25 MCG PATCH ONE (17:37)
[2019-07-16] MEDS: NOREPINEPHRINE 4 MG in SODIUM CHLORIDE 0.9% 246 ML IV PRN (17:50)
[2019-07-16] MEDS: FENTANYL 75 MCG PATCH TD SCH (17:51)
[2019-07-16] MEDS ORDERED: DEXMEDETOMIDINE 1,000 MCG in SODIUM CHLORIDE 0.9% 240 ML IV PRN (18:00)
[2019-07-16] MEDS: TRAZODONE 150MG TABLET PO SCH (21:38)
[2019-07-17] MEDS: ALBUTEROL SULFATE 2.5 MG/3 ML NPPB SCH ×6 (02:39→22:13)
[2019-07-17] MEDS: INSULIN LISPRO 100 UNITS/ML, PEN SQ-INSULIN SCH ×4 (03:11→20:09)
[2019-07-17] MEDS: HEPARIN 5,000 UNITS/ML, 1ML SQ SCH ×3 (05:14→20:06)
[2019-07-17 05:44] LABS: MEAN CORPUSCULAR HGB CONC 32.2 g/dL (33.2-36.2); MEAN PLATELET VOLUME 8.5 fL (7.4-10.4); PLATELET COUNT 337 x10^3/uL (130-400); RED BLOOD COUNT 2.43 x10^6/uL (4.38-5.82); RED CELL DISTRIBUTION WIDTH 18.2 % (9.4-14.8)
[2019-07-17 05:46] LABS: CHLORIDE 101 mmol/L (98-107)
[2019-07-17 05:53] LABS: ANION GAP 11 mmol/L (5-15); CALCIUM 8.8 mg/dL (8.5-10.1); CREATININE 1.64 mg/dL (0.7-1.3); TRIGLYCERIDES 467 mg/dL (50-200)
[2019-07-17] MEDS: MIDODRINE 5 MG TABLET PO SCH ×4 (06:03→20:07)
[2019-07-17 06:08] LABS: MD YES
[2019-07-17 06:10] LABS: BANDS%(MANUAL) 4 % (0-7); LYMPH#(MANUAL) 1.63 x10^3/uL (1-3.4); LYMPHS% (MANUAL) 13 % (22-44); METAMYELOCYTES# (MANUAL) 0.13 x10^3/uL (0-0); METAMYELOCYTES% (MANUAL) 1 % (0-1); MONOS#(MANUAL) 0.88 x10^3/uL (0.3-2.7); MONOS% (MANUAL) 7 % (2-9); MYELOCYTES# (MANUAL) 0.13 x10^3/uL (0-0); MYELOCYTES% (MANUAL) 1 % (0-0); NRBC % (MANUAL) 1 % (0-1); SEG#(MANUAL) 9.25 x10^3/uL (1.8-6.8); SEGS% (MANUAL) 74 % (42-75)
[2019-07-17 06:13] LABS: <PLATELET ESTIMATE> ADEQUATE; <PLT MORPHOLOGY> NORMAL PLT MORPH; ANISOCYTOSIS 1+; POLYCHROMASIA 1+
[2019-07-17] MEDS: DAKIN'S SOLUTION 1/4 STRENGTH 1,000 ML IRRIG SOLN EXT SCH ×2 (09:00→21:00)
[2019-07-17] MEDS: FENTANYL PF 100 MCG/2ML IVPush PRN ×2 (09:47→15:42)
[2019-07-17] MEDS: INSULIN GLARGINE 100 UNITS/ML, PEN SQ-INSULIN SCH (10:41)
[2019-07-17] MEDS: DEXMEDETOMIDINE 1,000 MCG in SODIUM CHLORIDE 0.9% 240 ML IV PRN (13:25)
[2019-07-17] MEDS: OXYcodone IR 5MG TABLET PO PRN ×2 (13:29→20:07)
[2019-07-17] MEDS: ALBUMIN HUMAN 25% 100 ML IV PRN (15:28)
[2019-07-17] MEDS: ERTAPENEM 1 GM in SODIUM CHLORIDE 0.9% 50 ML IV SCH ×2 (15:44→20:05)
[2019-07-17] MEDS: MICAFUNGIN 100 MG in SODIUM CHLORIDE 0.9% 100 ML IV SCH (20:06)
[2019-07-17] MEDS: TRAZODONE 150MG TABLET PO SCH (20:06)
[2019-07-17] MEDS: DAPTOMYCIN IVPB SCH (21:12)
[2019-07-17] MEDS: SODIUM CHLORIDE 0.9% IVPB SCH (21:12)
[2019-07-18] MEDS: ALBUTEROL SULFATE 2.5 MG/3 ML NPPB SCH ×6 (02:22→22:24)
[2019-07-18] MEDS: INSULIN LISPRO 100 UNITS/ML, PEN SQ-INSULIN SCH ×4 (03:00→20:14)
[2019-07-18] MEDS: OXYcodone IR 5MG TABLET PO PRN ×5 (03:01→22:35)
[2019-07-18] MEDS: HEPARIN 5,000 UNITS/ML, 1ML SQ SCH ×3 (04:47→20:11)
[2019-07-18] MEDS: DEXMEDETOMIDINE 1,000 MCG in SODIUM CHLORIDE 0.9% 240 ML IV PRN ×2 (04:47→22:37)
[2019-07-18 05:06] LABS: MEAN CORPUSCULAR HEMOGLOBIN 29.5 pg (27.5-34.5); MEAN CORPUSCULAR HGB CONC 32.6 g/dL (33.2-36.2); MEAN CORPUSCULAR VOLUME 90.5 fL (81-97); MEAN PLATELET VOLUME 8.2 fL (7.4-10.4); PLATELET COUNT 316 x10^3/uL (130-400); RED BLOOD COUNT 2.22 x10^6/uL (4.38-5.82); RED CELL DISTRIBUTION WIDTH 18.3 % (9.4-14.8)
[2019-07-18 05:10] LABS: ANION GAP 10 mmol/L (5-15); CALCIUM 8.9 mg/dL (8.5-10.1); CHLORIDE 102 mmol/L (98-107); CREATININE 1.75 mg/dL (0.7-1.3)
[2019-07-18 05:40] LABS: MD YES
[2019-07-18] MEDS: FENTANYL PF 100 MCG/2ML IVPush PRN (05:41)
[2019-07-18 05:42] LABS: ANISOCYTOSIS 1+; BAND#(MANUAL) 0.13 x10^3/uL; BANDS%(MANUAL) 1 % (0-7); LYMPH#(MANUAL) 1.13 x10^3/uL (1-3.4); LYMPHS% (MANUAL) 9 % (22-44); METAMYELOCYTES# (MANUAL) 0.13 x10^3/uL (0-0); METAMYELOCYTES% (MANUAL) 1 % (0-1); MONOS#(MANUAL) 1.25 x10^3/uL (0.3-2.7); MONOS% (MANUAL) 10 % (2-9); MYELOCYTES# (MANUAL) 0.13 x10^3/uL (0-0); MYELOCYTES% (MANUAL) 1 % (0-0); SEG#(MANUAL) 9.75 x10^3/uL (1.8-6.8); SEGS% (MANUAL) 78 % (42-75)
[2019-07-18] MEDS: MIDODRINE 5 MG TABLET PO SCH ×4 (05:42→20:12)
[2019-07-18 05:43] LABS: POLYCHROMASIA 1+
[2019-07-18 05:44] LABS: <PLATELET ESTIMATE> ADEQUATE; <PLT MORPHOLOGY> NORMAL PLT MORPH
[2019-07-18 06:50] VITALS: BP 98/61
[2019-07-18 07:07] VITALS: BP 101/58
[2019-07-18] MEDS: DAKIN'S SOLUTION 1/4 STRENGTH 1,000 ML IRRIG SOLN EXT SCH ×2 (07:33→21:00)
[2019-07-18] MEDS: INSULIN GLARGINE 100 UNITS/ML, PEN SQ-INSULIN SCH ×2 (07:58→20:16)
[2019-07-18 08:00] VITALS: BP 94/48
[2019-07-18 08:45] LABS: ABSOLUTE RETICS # 0.142 x10^6/uL (0.5-1.5); RED BLOOD COUNT 2.23 x10^6/uL (4.38-5.82); RETICULOCYTE COUNT % 6.37 % (0.5-1.5)
[2019-07-18 08:54] VITALS: BP 93/48
[2019-07-18 10:00] VITALS: BP 89/46
[2019-07-18] MEDS: ACETAMINOPHEN 650 MG/20.3 ML UDC PO PRN (13:25)
[2019-07-18] MEDS: ERGOCALCIFEROL 50,000 UNIT CAPSULE PO SCH (15:28)
[2019-07-18] MEDS: ERTAPENEM 1 GM in SODIUM CHLORIDE 0.9% 50 ML IV SCH (20:11)
[2019-07-18] MEDS: TRAZODONE 150MG TABLET PO SCH (20:11)
[2019-07-18] MEDS: MICAFUNGIN 100 MG in SODIUM CHLORIDE 0.9% 100 ML IV SCH (20:11)
[2019-07-19] MEDS: ALBUTEROL SULFATE 2.5 MG/3 ML NPPB SCH ×6 (02:10→23:00)
[2019-07-19] MEDS: INSULIN LISPRO 100 UNITS/ML, PEN SQ-INSULIN SCH ×4 (03:42→21:00)
[2019-07-19] MEDS: HEPARIN 5,000 UNITS/ML, 1ML SQ SCH ×3 (04:00→20:20)
[2019-07-19 04:51] LABS: MEAN CORPUSCULAR HEMOGLOBIN 29.4 pg (27.5-34.5); MEAN CORPUSCULAR HGB CONC 32.8 g/dL (33.2-36.2); MEAN CORPUSCULAR VOLUME 89.6 fL (81-97); MEAN PLATELET VOLUME 8.7 fL (7.4-10.4); PLATELET COUNT 318 x10^3/uL (130-400); RED BLOOD COUNT 2.28 x10^6/uL (4.38-5.82); RED CELL DISTRIBUTION WIDTH 18.2 % (9.4-14.8)
[2019-07-19 04:55] LABS: ANION GAP 14 mmol/L (5-15); CALCIUM 9.1 mg/dL (8.5-10.1); CHLORIDE 100 mmol/L (98-107)
[2019-07-19 04:58] LABS: CREATININE 2.65 mg/dL (0.7-1.3)
[2019-07-19 05:50] LABS: MD YES
[2019-07-19 05:52] LABS: ANISOCYTOSIS 1+; BAND#(MANUAL) 0.22 x10^3/uL; BANDS%(MANUAL) 2 % (0-7); EOS#(MANUAL) 0.22 x10^3/uL (0.0-0.4); EOS% (MANUAL) 2 % (1-7); LYMPH#(MANUAL) 1.76 x10^3/uL (1-3.4); LYMPHS% (MANUAL) 16 % (22-44); METAMYELOCYTES# (MANUAL) 0.11 x10^3/uL (0-0); METAMYELOCYTES% (MANUAL) 1 % (0-1); MONOS#(MANUAL) 0.44 x10^3/uL (0.3-2.7); MONOS% (MANUAL) 4 % (2-9); POLYCHROMASIA 1+; SEG#(MANUAL) 8.25 x10^3/uL (1.8-6.8); SEGS% (MANUAL) 75 % (42-75)
[2019-07-19 05:53] LABS: <PLATELET ESTIMATE> ADEQUATE; <PLT MORPHOLOGY> NORMAL PLT MORPH
[2019-07-19] MEDS: OXYcodone IR 5MG TABLET PO PRN ×4 (05:55→19:32)
[2019-07-19] MEDS: MIDODRINE 5 MG TABLET PO SCH ×4 (05:55→20:48)
[2019-07-19] MEDS: ACETAMINOPHEN 650 MG/20.3 ML UDC PO PRN ×2 (05:59→13:08)
[2019-07-19] MEDS: INSULIN GLARGINE 100 UNITS/ML, PEN SQ-INSULIN SCH ×2 (09:08→21:00)
[2019-07-19] MEDS: FENTANYL PF 100 MCG/2ML IVPush PRN (13:08)
[2019-07-19] MEDS: DAKIN'S SOLUTION 1/4 STRENGTH 1,000 ML IRRIG SOLN EXT SCH ×2 (14:00→20:48)
[2019-07-19] MEDS ORDERED: SODIUM CHLORIDE 0.9%, 500ML IVBOLUS ONE (16:45)
[2019-07-19] MEDS: DAPTOMYCIN IVPB SCH (19:30)
[2019-07-19] MEDS: SODIUM CHLORIDE 0.9% IVPB SCH (19:30)
[2019-07-19] MEDS: ERTAPENEM 1 GM in SODIUM CHLORIDE 0.9% 50 ML IV SCH ×2 (19:33→20:19)
[2019-07-19] MEDS: MICAFUNGIN 100 MG in SODIUM CHLORIDE 0.9% 100 ML IV SCH (20:20)
[2019-07-19] MEDS: TRAZODONE 150MG TABLET PO SCH (20:48)
[2019-07-19] MEDS: FENTANYL 75 MCG PATCH TD SCH (21:50)
[2019-07-20] MEDS: FENTANYL PF 100 MCG/2ML IVPush PRN ×2 (01:32→11:19)
[2019-07-20] MEDS: ONDANSETRON 2MG/ML, 2ML IVPush PRN (01:32)
[2019-07-20] MEDS: ALBUTEROL SULFATE 2.5 MG/3 ML NPPB SCH ×6 (03:00→22:06)
[2019-07-20] MEDS: INSULIN LISPRO 100 UNITS/ML, PEN SQ-INSULIN SCH ×4 (03:00→21:13)
[2019-07-20 03:30] LABS: MEAN CORPUSCULAR HEMOGLOBIN 29.3 pg (27.5-34.5); MEAN CORPUSCULAR HGB CONC 32.8 g/dL (33.2-36.2); MEAN CORPUSCULAR VOLUME 89.3 fL (81-97); MEAN PLATELET VOLUME 8.4 fL (7.4-10.4); PLATELET COUNT 337 x10^3/uL (130-400); RED BLOOD COUNT 2.35 x10^6/uL (4.38-5.82); RED CELL DISTRIBUTION WIDTH 17.5 % (9.4-14.8)
[2019-07-20 03:33] LABS: ANION GAP 14 mmol/L (5-15); CALCIUM 9.1 mg/dL (8.5-10.1); CHLORIDE 102 mmol/L (98-107); CREATININE 2.92 mg/dL (0.7-1.3)
[2019-07-20 03:44] LABS: BASOPHILS # (AUTO) 0.07 x10^3/uL (0-0.1); BASOPHILS % (AUTO) 1 % (0-1); EOSINOPHILS # (AUTO) 0.33 x10^3/uL (0-0.4); EOSINOPHILS % (AUTO) 3 % (1-7); LYMPHOCYTES # (AUTO) 1.32 x10^3/uL (1-3.4); LYMPHOCYTES % (AUTO) 11 % (22-44); MD SCAN; MONOCYTES % (AUTO) 7 % (2-9); NEUTROPHILS # (AUTO) 9.12 x10^3/uL (1.8-6.8); NEUTROPHILS % (AUTO) 78 % (42-75)
[2019-07-20] MEDS: HEPARIN 5,000 UNITS/ML, 1ML SQ SCH ×3 (03:56→20:21)
[2019-07-20] MEDS: MIDODRINE 5 MG TABLET PO SCH ×4 (05:54→21:01)
[2019-07-20] MEDS: INSULIN GLARGINE 100 UNITS/ML, PEN SQ-INSULIN SCH ×2 (09:00→21:13)
[2019-07-20] MEDS: OXYcodone IR 5MG TABLET PO PRN ×2 (13:44→18:22)
[2019-07-20] MEDS: DAKIN'S SOLUTION 1/4 STRENGTH 1,000 ML IRRIG SOLN EXT SCH (19:37)
[2019-07-20] MEDS: ERTAPENEM 1 GM in SODIUM CHLORIDE 0.9% 50 ML IV SCH (19:44)
[2019-07-20] MEDS: MICAFUNGIN 100 MG in SODIUM CHLORIDE 0.9% 100 ML IV SCH (20:21)
[2019-07-20] MEDS: TRAZODONE 150MG TABLET PO SCH (21:01)
[2019-07-21] MEDS: ALBUTEROL SULFATE 2.5 MG/3 ML NPPB SCH ×6 (02:17→22:41)
[2019-07-21] MEDS: INSULIN LISPRO 100 UNITS/ML, PEN SQ-INSULIN SCH ×4 (02:59→20:05)
[2019-07-21] MEDS: HEPARIN 5,000 UNITS/ML, 1ML SQ SCH ×3 (03:50→20:02)
[2019-07-21] MEDS: OXYcodone IR 5MG TABLET PO PRN ×3 (03:50→13:37)
[2019-07-21 05:14] LABS: ANION GAP 15 mmol/L (5-15); CALCIUM 9.2 mg/dL (8.5-10.1); CHLORIDE 102 mmol/L (98-107); CREATININE 2.91 mg/dL (0.7-1.3)
[2019-07-21 06:01] LABS: BASOPHILS # (AUTO) 0.05 x10^3/uL (0-0.1); BASOPHILS % (AUTO) 1 % (0-1); EOSINOPHILS # (AUTO) 0.14 x10^3/uL (0-0.4); EOSINOPHILS % (AUTO) 2 % (1-7); LYMPHOCYTES # (AUTO) 1.17 x10^3/uL (1-3.4); LYMPHOCYTES % (AUTO) 12 % (22-44); MD SCAN; MEAN CORPUSCULAR HEMOGLOBIN 29.1 pg (27.5-34.5); MEAN CORPUSCULAR HGB CONC 32.6 g/dL (33.2-36.2); MEAN CORPUSCULAR VOLUME 89.3 fL (81-97); MEAN PLATELET VOLUME 8.4 fL (7.4-10.4); MONOCYTES # (AUTO) 0.79 x10^3/uL (0.2-0.8); MONOCYTES % (AUTO) 8 % (2-9); NEUTROPHILS # (AUTO) 7.42 x10^3/uL (1.8-6.8); NEUTROPHILS % (AUTO) 78 % (42-75); PLATELET COUNT 363 x10^3/uL (130-400); RED BLOOD COUNT 2.11 x10^6/uL (4.38-5.82)
[2019-07-21] MEDS: MIDODRINE 5 MG TABLET PO SCH ×4 (06:03→20:02)
[2019-07-21] MEDS: INSULIN GLARGINE 100 UNITS/ML, PEN SQ-INSULIN SCH ×2 (08:26→20:05)
[2019-07-21 08:40] VITALS: BP 115/61
[2019-07-21 08:55] VITALS: BP 115/58
[2019-07-21 10:10] VITALS: BP 101/53
[2019-07-21 11:10] VITALS: BP 112/58
[2019-07-21] MEDS ORDERED: FENTANYL PF 100 MCG/2ML IVPush PRN (11:30)
[2019-07-21] MEDS: DAKIN'S SOLUTION 1/4 STRENGTH 1,000 ML IRRIG SOLN EXT SCH ×2 (12:07→20:12)
[2019-07-21] MEDS: MICAFUNGIN 100 MG in SODIUM CHLORIDE 0.9% 100 ML IV SCH (19:59)
[2019-07-21] MEDS: TRAZODONE 150MG TABLET PO SCH (20:02)
[2019-07-21] MEDS: DAPTOMYCIN IVPB SCH (20:52)
[2019-07-21] MEDS: SODIUM CHLORIDE 0.9% IVPB SCH (20:52)
[2019-07-22] MEDS: ALBUTEROL SULFATE 2.5 MG/3 ML NPPB SCH ×6 (02:45→22:13)
[2019-07-22] MEDS: HEPARIN 5,000 UNITS/ML, 1ML SQ SCH ×3 (03:40→20:00)
[2019-07-22] MEDS: OXYcodone IR 5MG TABLET PO PRN ×2 (03:40→14:26)
[2019-07-22] MEDS: INSULIN LISPRO 100 UNITS/ML, PEN SQ-INSULIN SCH ×4 (03:47→21:00)
[2019-07-22 04:30] VITALS: BP 105/60
[2019-07-22 04:33] LABS: BASOPHILS # (AUTO) 0.02 x10^3/uL (0-0.1); BASOPHILS % (AUTO) 0 % (0-1); EOSINOPHILS # (AUTO) 0.34 x10^3/uL (0-0.4); EOSINOPHILS % (AUTO) 3 % (1-7); LYMPHOCYTES # (AUTO) 1.23 x10^3/uL (1-3.4); LYMPHOCYTES % (AUTO) 13 % (22-44); MD NO; MEAN CORPUSCULAR HEMOGLOBIN 29.1 pg (27.5-34.5); MEAN CORPUSCULAR VOLUME 88.1 fL (81-97); MEAN PLATELET VOLUME 8.4 fL (7.4-10.4); MONOCYTES # (AUTO) 0.68 x10^3/uL (0.2-0.8); MONOCYTES % (AUTO) 7 % (2-9); NEUTROPHILS # (AUTO) 7.54 x10^3/uL (1.8-6.8); NEUTROPHILS % (AUTO) 77 % (42-75); PLATELET COUNT 361 x10^3/uL (130-400); RED BLOOD COUNT 2.61 x10^6/uL (4.38-5.82); RED CELL DISTRIBUTION WIDTH 18.8 % (9.4-14.8)
[2019-07-22 04:38] LABS: ANION GAP 10 mmol/L (5-15); CALCIUM 8.9 mg/dL (8.5-10.1); CHLORIDE 101 mmol/L (98-107)
[2019-07-22 04:42] LABS: ALANINE AMINOTRANSFERASE 22 U/L (12-78); ALKALINE PHOSPHATASE 176 U/L (45-117); BILIRUBIN,TOTAL 0.5 mg/dL (0.2-1.0); CREATININE 1.85 mg/dL (0.7-1.3); TOTAL PROTEIN 7.2 g/dL (6.4-8.2)
[2019-07-22] MEDS: MIDODRINE 5 MG TABLET PO SCH ×3 (05:35→21:00)
[2019-07-22] MEDS: INSULIN GLARGINE 100 UNITS/ML, PEN SQ-INSULIN SCH ×2 (07:53→21:00)
[2019-07-22] MEDS: DAKIN'S SOLUTION 1/4 STRENGTH 1,000 ML IRRIG SOLN EXT SCH ×2 (09:00→21:00)
[2019-07-22] MEDS ORDERED: CATHFLO-ALTEPLASE 2 MG/2 ML CATHFLUSH ONE ×2 (11:00)
[2019-07-22] MEDS: ERTAPENEM 1 GM in SODIUM CHLORIDE 0.9% 50 ML IV SCH (20:06)
[2019-07-22] MEDS: MICAFUNGIN 100 MG in SODIUM CHLORIDE 0.9% 100 ML IV SCH (20:45)
[2019-07-22] MEDS: FENTANYL 75 MCG PATCH TD SCH (21:00)
[2019-07-22] MEDS: TRAZODONE 150MG TABLET PO SCH (21:00)
[2019-07-23] MEDS: ALBUTEROL SULFATE 2.5 MG/3 ML NPPB SCH ×6 (01:47→22:34)
[2019-07-23] MEDS: FENTANYL PF 100 MCG/2ML IVPush PRN (02:19)
[2019-07-23] MEDS: INSULIN LISPRO 100 UNITS/ML, PEN SQ-INSULIN SCH ×4 (03:19→21:23)
[2019-07-23] MEDS: HEPARIN 5,000 UNITS/ML, 1ML SQ SCH ×3 (03:20→21:22)
[2019-07-23] MEDS: OXYcodone IR 5MG TABLET PO PRN ×2 (03:20→21:23)
[2019-07-23 08:34] LABS: BASOPHILS # (AUTO) 0.04 x10^3/uL (0-0.1); BASOPHILS % (AUTO) 0 % (0-1); EOSINOPHILS # (AUTO) 0.18 x10^3/uL (0-0.4); EOSINOPHILS % (AUTO) 2 % (1-7); LYMPHOCYTES # (AUTO) 1.27 x10^3/uL (1-3.4); LYMPHOCYTES % (AUTO) 12 % (22-44); MD NO; MEAN CORPUSCULAR HEMOGLOBIN 27.5 pg (27.5-34.5); MEAN CORPUSCULAR HGB CONC 31.7 g/dL (33.2-36.2); MEAN CORPUSCULAR VOLUME 86.9 fL (81-97); MEAN PLATELET VOLUME 8.4 fL (7.4-10.4); MONOCYTES % (AUTO) 7 % (2-9); NEUTROPHILS # (AUTO) 8.26 x10^3/uL (1.8-6.8); NEUTROPHILS % (AUTO) 79 % (42-75); PLATELET COUNT 332 x10^3/uL (130-400); RED BLOOD COUNT 2.75 x10^6/uL (4.38-5.82)
[2019-07-23 08:44] LABS: ANION GAP 14 mmol/L (5-15); CALCIUM 9.4 mg/dL (8.5-10.1); CHLORIDE 101 mmol/L (98-107); CREATININE 1.67 mg/dL (0.7-1.3)
[2019-07-23] MEDS: MIDODRINE 5 MG TABLET PO SCH ×3 (08:52→21:23)
[2019-07-23] MEDS ORDERED: MIDAZOLAM 1 MG/ML, 5ML IVPush ONE (09:30)
[2019-07-23] MEDS: INSULIN GLARGINE 100 UNITS/ML, PEN SQ-INSULIN SCH ×2 (09:58→21:24)
[2019-07-23] MEDS: DAKIN'S SOLUTION 1/4 STRENGTH 1,000 ML IRRIG SOLN EXT SCH ×2 (10:40→21:00)
[2019-07-23] MEDS: ERTAPENEM 1 GM in SODIUM CHLORIDE 0.9% 50 ML IV SCH (18:25)
[2019-07-23] MEDS: ACETAMINOPHEN 650 MG/20.3 ML UDC PO PRN (18:25)
[2019-07-23] MEDS: MICAFUNGIN 100 MG in SODIUM CHLORIDE 0.9% 100 ML IV SCH (20:11)
[2019-07-23] MEDS: SODIUM CHLORIDE 0.9% IVPB SCH (21:22)
[2019-07-23] MEDS: DAPTOMYCIN IVPB SCH (21:22)
[2019-07-23] MEDS: TRAZODONE 150MG TABLET PO SCH (21:23)
[2019-07-24] MEDS: OXYcodone IR 5MG TABLET PO PRN ×2 (01:38→13:14)
[2019-07-24] MEDS: ALBUTEROL SULFATE 2.5 MG/3 ML NPPB SCH ×5 (02:25→18:34)
[2019-07-24] MEDS: HEPARIN 5,000 UNITS/ML, 1ML SQ SCH ×3 (03:24→20:25)
[2019-07-24 03:46] LABS: MEAN CORPUSCULAR HEMOGLOBIN 28.4 pg (27.5-34.5); MEAN CORPUSCULAR HGB CONC 32.8 g/dL (33.2-36.2); MEAN CORPUSCULAR VOLUME 86.5 fL (81-97); MEAN PLATELET VOLUME 7.9 fL (7.4-10.4); PLATELET COUNT 334 x10^3/uL (130-400); RED BLOOD COUNT 2.73 x10^6/uL (4.38-5.82); RED CELL DISTRIBUTION WIDTH 18.2 % (9.4-14.8)
[2019-07-24 03:56] LABS: ANION GAP 13 mmol/L (5-15); CALCIUM 9.1 mg/dL (8.5-10.1); CHLORIDE 102 mmol/L (98-107); CREATININE 2.13 mg/dL (0.7-1.3)
[2019-07-24 04:11] LABS: ANISOCYTOSIS 1+; BASOPHILS # (AUTO) 0.11 x10^3/uL (0-0.1); BASOPHILS % (AUTO) 1 % (0-1); EOSINOPHILS # (AUTO) 0.18 x10^3/uL (0-0.4); EOSINOPHILS % (AUTO) 2 % (1-7); LYMPHOCYTES # (AUTO) 1.71 x10^3/uL (1-3.4); LYMPHOCYTES % (AUTO) 17 % (22-44); MD MORPH REVIEW ONLY; MONOCYTES % (AUTO) 7 % (2-9); NEUTROPHILS % (AUTO) 74 % (42-75)
[2019-07-24 04:12] LABS: <PLATELET ESTIMATE> ADEQUATE; GIANT PLATELETS 1+; HYPOGRAN PLTS 1+; OVALOCYTES 1+
[2019-07-24 04:14] LABS: MICROCYTOSIS 1+
[2019-07-24] MEDS: INSULIN LISPRO 100 UNITS/ML, PEN SQ-INSULIN SCH ×4 (04:22→21:02)
[2019-07-24] MEDS: MIDODRINE 5 MG TABLET PO SCH (10:17)
[2019-07-24] MEDS: INSULIN GLARGINE 100 UNITS/ML, PEN SQ-INSULIN SCH ×2 (10:19→21:04)
[2019-07-24] MEDS: FENTANYL PF 100 MCG/2ML IVPush PRN ×2 (10:20→23:18)
[2019-07-24] MEDS: ERTAPENEM 1 GM in SODIUM CHLORIDE 0.9% 50 ML IV SCH (20:24)
[2019-07-24] MEDS: TRAZODONE 150MG TABLET PO SCH (20:52)
[2019-07-24] MEDS: MICAFUNGIN 100 MG in SODIUM CHLORIDE 0.9% 100 ML IV SCH (20:52)
[2019-07-25] MEDS: OXYcodone IR 5MG TABLET PO PRN ×2 (01:12→21:05)
[2019-07-25] MEDS: ALBUTEROL SULFATE 2.5 MG/3 ML NPPB SCH ×7 (02:31→22:15)
[2019-07-25] MEDS: INSULIN LISPRO 100 UNITS/ML, PEN SQ-INSULIN SCH ×4 (03:00→20:40)
[2019-07-25] MEDS: HEPARIN 5,000 UNITS/ML, 1ML SQ SCH ×3 (04:00→20:24)
[2019-07-25 04:58] LABS: BASOPHILS # (AUTO) 0.03 x10^3/uL (0-0.1); BASOPHILS % (AUTO) 0 % (0-1); EOSINOPHILS # (AUTO) 0.22 x10^3/uL (0-0.4); EOSINOPHILS % (AUTO) 2 % (1-7); LYMPHOCYTES # (AUTO) 1.61 x10^3/uL (1-3.4); LYMPHOCYTES % (AUTO) 14 % (22-44); MD NO; MEAN CORPUSCULAR HEMOGLOBIN 28.7 pg (27.5-34.5); MEAN CORPUSCULAR HGB CONC 32.6 g/dL (33.2-36.2); MEAN CORPUSCULAR VOLUME 87.9 fL (81-97); MEAN PLATELET VOLUME 8.1 fL (7.4-10.4); MONOCYTES # (AUTO) 0.71 x10^3/uL (0.2-0.8); MONOCYTES % (AUTO) 6 % (2-9); NEUTROPHILS # (AUTO) 8.67 x10^3/uL (1.8-6.8); NEUTROPHILS % (AUTO) 77 % (42-75); PLATELET COUNT 350 x10^3/uL (130-400); RED CELL DISTRIBUTION WIDTH 18.4 % (9.4-14.8)
[2019-07-25 05:07] LABS: CALCIUM 9.6 mg/dL (8.5-10.1); CHLORIDE 102 mmol/L (98-107)
[2019-07-25 05:11] LABS: ANION GAP 12 mmol/L (5-15); CREATININE 1.75 mg/dL (0.7-1.3)
[2019-07-25] MEDS: INSULIN GLARGINE 100 UNITS/ML, PEN SQ-INSULIN SCH ×2 (08:25→20:41)
[2019-07-25] MEDS ORDERED: FENTANYL PF 250 MCG/5ML ONE (08:46)
[2019-07-25] MEDS ORDERED: MIDAZOLAM 1 MG/ML, 2ML ONE (08:51)
[2019-07-25] MEDS ORDERED: LABETALOL 5MG/ML, 20ML IV PRN (09:00)
[2019-07-25] MEDS ORDERED: hydrALAzine 20 MG/ML, 1ML IV PRN (09:00)
[2019-07-25] MEDS ORDERED: HYDROmorphone 2 MG/ML, 1ML IVPush PRN (09:00)
[2019-07-25] MEDS ORDERED: ONDANSETRON ODT 8 MG PO PRN (09:00)
[2019-07-25] MEDS ORDERED: FENTANYL PF 100 MCG/2ML IV PRN (09:00)
[2019-07-25] MEDS ORDERED: ONDANSETRON 2MG/ML, 2ML IV PRN (09:00)
[2019-07-25] MEDS ORDERED: PHENYLEPHRINE 10 MG/ML ONE (09:20)
[2019-07-25] MEDS ORDERED: ROCURONIUM 10 MG/ML,10ML ONE (09:20)
[2019-07-25] MEDS ORDERED: PROPOFOL 10 MG/ML, 20ML ONE (09:20)
[2019-07-25] MEDS ORDERED: FENTANYL PF 100 MCG/2ML ONE (10:36)
[2019-07-25] MEDS: DAKIN'S SOLUTION 1/4 STRENGTH 1,000 ML IRRIG SOLN EXT SCH (12:06)
[2019-07-25] MEDS: OXYcodone 5 MG/5 ML ORAL.SOL UDC PO PRN (14:33)
[2019-07-25] MEDS: ERGOCALCIFEROL 50,000 UNIT CAPSULE PO SCH (15:30)
[2019-07-25] MEDS: ERTAPENEM 1 GM in SODIUM CHLORIDE 0.9% 50 ML IV SCH (18:28)
[2019-07-25] MEDS: ACETAMINOPHEN 650 MG/20.3 ML UDC PO PRN (18:31)
[2019-07-25] MEDS: DAPTOMYCIN IVPB SCH (20:23)
[2019-07-25] MEDS: SODIUM CHLORIDE 0.9% IVPB SCH (20:23)
[2019-07-25] MEDS: MICAFUNGIN 100 MG in SODIUM CHLORIDE 0.9% 100 ML IV SCH (21:04)
[2019-07-26] MEDS: ALBUTEROL SULFATE 2.5 MG/3 ML NPPB SCH ×6 (01:45→22:09)
[2019-07-26] MEDS: INSULIN LISPRO 100 UNITS/ML, PEN SQ-INSULIN SCH ×4 (03:40→20:46)
[2019-07-26] MEDS ORDERED: FENTANYL PF 100 MCG/2ML IVPush ONE (04:30)
[2019-07-26] MEDS: HEPARIN 5,000 UNITS/ML, 1ML SQ SCH ×3 (04:30→19:47)
[2019-07-26 05:19] LABS: ANION GAP 15 mmol/L (5-15); CALCIUM 9.4 mg/dL (8.5-10.1); CHLORIDE 104 mmol/L (98-107); CREATININE 2.33 mg/dL (0.7-1.3)
[2019-07-26 05:59] LABS: MEAN CORPUSCULAR HEMOGLOBIN 28.6 pg (27.5-34.5); MEAN CORPUSCULAR HGB CONC 32.6 g/dL (33.2-36.2); MEAN CORPUSCULAR VOLUME 87.7 fL (81-97); MEAN PLATELET VOLUME 8.2 fL (7.4-10.4); PLATELET COUNT 391 x10^3/uL (130-400); RED BLOOD COUNT 2.65 x10^6/uL (4.38-5.82); RED CELL DISTRIBUTION WIDTH 18.4 % (9.4-14.8)
[2019-07-26 06:20] LABS: MD YES
[2019-07-26 06:22] LABS: ANISOCYTOSIS 1+; BAND#(MANUAL) 0.27 x10^3/uL; BANDS%(MANUAL) 2 % (0-7); LYMPH#(MANUAL) 2.04 x10^3/uL (1-3.4); LYMPHS% (MANUAL) 15 % (22-44); METAMYELOCYTES# (MANUAL) 0.14 x10^3/uL (0-0); METAMYELOCYTES% (MANUAL) 1 % (0-1); MONOS#(MANUAL) 0.68 x10^3/uL (0.3-2.7); MONOS% (MANUAL) 5 % (2-9); MYELOCYTES# (MANUAL) 0.14 x10^3/uL (0-0); MYELOCYTES% (MANUAL) 1 % (0-0); SEG#(MANUAL) 10.34 x10^3/uL (1.8-6.8); SEGS% (MANUAL) 76 % (42-75)
[2019-07-26 06:23] LABS: <PLATELET ESTIMATE> ADEQUATE; <PLT MORPHOLOGY> NORMAL PLT MORPH; POLYCHROMASIA 1+
[2019-07-26] MEDS: FENTANYL 50 MCG PATCH TD SCH (08:57)
[2019-07-26] MEDS: INSULIN GLARGINE 100 UNITS/ML, PEN SQ-INSULIN SCH ×2 (08:58→20:47)
[2019-07-26] MEDS: DEXMEDETOMIDINE 1,000 MCG in SODIUM CHLORIDE 0.9% 240 ML IV PRN (14:23)
[2019-07-26] MEDS: ERTAPENEM 1 GM in SODIUM CHLORIDE 0.9% 50 ML IV SCH (17:53)
[2019-07-26] MEDS: OXYcodone IR 5MG TABLET PO PRN (19:41)
[2019-07-26] MEDS: MICAFUNGIN 100 MG in SODIUM CHLORIDE 0.9% 100 ML IV SCH (19:47)
[2019-07-27] MEDS: ALBUTEROL SULFATE 2.5 MG/3 ML NPPB SCH ×6 (02:06→22:50)
[2019-07-27] MEDS: OXYcodone IR 5MG TABLET PO PRN (03:00)
[2019-07-27] MEDS: INSULIN LISPRO 100 UNITS/ML, PEN SQ-INSULIN SCH ×4 (03:21→21:55)
[2019-07-27 03:31] LABS: MEAN CORPUSCULAR HEMOGLOBIN 28.8 pg (27.5-34.5); MEAN CORPUSCULAR HGB CONC 32.4 g/dL (33.2-36.2); MEAN CORPUSCULAR VOLUME 88.9 fL (81-97); MEAN PLATELET VOLUME 8.6 fL (7.4-10.4); PLATELET COUNT 348 x10^3/uL (130-400); RED BLOOD COUNT 2.51 x10^6/uL (4.38-5.82)
[2019-07-27 03:39] LABS: ALBUMIN 2.2 g/dL (3.4-5.0); ANION GAP 14 mmol/L (5-15); CALCIUM 9.2 mg/dL (8.5-10.1); CHLORIDE 100 mmol/L (98-107)
[2019-07-27 03:42] LABS: CREATININE 2.23 mg/dL (0.7-1.3)
[2019-07-27 03:43] LABS: ALANINE AMINOTRANSFERASE 29 U/L (12-78); ALKALINE PHOSPHATASE 133 U/L (45-117); BILIRUBIN,TOTAL 0.3 mg/dL (0.2-1.0); TOTAL PROTEIN 7.6 g/dL (6.4-8.2)
[2019-07-27] MEDS: DAKIN'S SOLUTION 1/4 STRENGTH 1,000 ML IRRIG SOLN EXT SCH (03:43)
[2019-07-27 03:48] LABS: MD YES
[2019-07-27 03:51] LABS: BASOS#(MANUAL) 0.14 x10^3/uL (0-0.1); BASOS% (MANUAL) 1 % (0-1); LYMPH#(MANUAL) 2.57 x10^3/uL (1-3.4); LYMPHS% (MANUAL) 18 % (22-44); METAMYELOCYTES# (MANUAL) 0.14 x10^3/uL (0-0); METAMYELOCYTES% (MANUAL) 1 % (0-1); MONOS#(MANUAL) 1.14 x10^3/uL (0.3-2.7); MONOS% (MANUAL) 8 % (2-9); MYELOCYTES# (MANUAL) 0.29 x10^3/uL (0-0); MYELOCYTES% (MANUAL) 2 % (0-0); SEG#(MANUAL) 9.87 x10^3/uL (1.8-6.8); SEGS% (MANUAL) 69 % (42-75)
[2019-07-27] MEDS: HEPARIN 5,000 UNITS/ML, 1ML SQ SCH ×3 (03:52→21:48)
[2019-07-27 03:53] LABS: ANISOCYTOSIS 1+; BLASTS # (MANUAL) 0.14 x10^3/uL (0-0); BLASTS % (MANUAL) 1 % (0-0)
[2019-07-27 03:55] LABS: <PLATELET ESTIMATE> ADEQUATE; <PLT MORPHOLOGY> NORMAL PLT MORPH
[2019-07-27] MEDS: SODIUM CHLORIDE 0.9% IVPB SCH ×3 (09:12→21:47)
[2019-07-27] MEDS: ERAVACYCLINE IVPB SCH ×2 (09:12→21:47)
[2019-07-27] MEDS: MIDODRINE 5 MG TABLET PO SCH ×3 (09:25→21:49)
[2019-07-27] MEDS: OXYcodone 5 MG/5 ML ORAL.SOL UDC PO PRN ×3 (09:25→22:32)
[2019-07-27] MEDS: INSULIN GLARGINE 100 UNITS/ML, PEN SQ-INSULIN SCH ×2 (09:26→21:55)
[2019-07-27] MEDS: ALBUMIN HUMAN 25% 100 ML IV PRN (18:52)
[2019-07-27] MEDS: DAPTOMYCIN IVPB SCH (19:39)
[2019-07-27] MEDS: MICAFUNGIN 100 MG in SODIUM CHLORIDE 0.9% 100 ML IV SCH (21:01)
[2019-07-27] MEDS: DEXMEDETOMIDINE 1,000 MCG in SODIUM CHLORIDE 0.9% 240 ML IV PRN (21:48)
[2019-07-28] VITALS (14 sets, daily range): BP systolic 97–121; BP diastolic 45–75
[2019-07-28] MEDS: OXYcodone 5 MG/5 ML ORAL.SOL UDC PO PRN ×4 (02:51→21:28)
[2019-07-28] MEDS: INSULIN LISPRO 100 UNITS/ML, PEN SQ-INSULIN SCH ×4 (03:00→20:24)
[2019-07-28] MEDS: ALBUTEROL SULFATE 2.5 MG/3 ML NPPB SCH ×6 (03:00→22:37)
[2019-07-28] MEDS: HEPARIN 5,000 UNITS/ML, 1ML SQ SCH ×3 (04:50→20:28)
[2019-07-28 05:03] LABS: ANION GAP 16 mmol/L (5-15); CALCIUM 9.3 mg/dL (8.5-10.1); CHLORIDE 100 mmol/L (98-107)
[2019-07-28 05:05] LABS: MEAN CORPUSCULAR HEMOGLOBIN 28.8 pg (27.5-34.5); MEAN CORPUSCULAR HGB CONC 32.6 g/dL (33.2-36.2); MEAN CORPUSCULAR VOLUME 88.3 fL (81-97); MEAN PLATELET VOLUME 8.9 fL (7.4-10.4); PLATELET COUNT 346 x10^3/uL (130-400); RED BLOOD COUNT 2.37 x10^6/uL (4.38-5.82); RED CELL DISTRIBUTION WIDTH 19.3 % (9.4-14.8)
[2019-07-28 05:08] LABS: ALANINE AMINOTRANSFERASE 33 U/L (12-78); ALKALINE PHOSPHATASE 115 U/L (45-117); BILIRUBIN,TOTAL 0.4 mg/dL (0.2-1.0); CREATININE 2.36 mg/dL (0.7-1.3); TOTAL PROTEIN 7.5 g/dL (6.4-8.2)
[2019-07-28 06:04] LABS: MD YES
[2019-07-28 06:07] LABS: <PLATELET ESTIMATE> ADEQUATE; <PLT MORPHOLOGY> NORMAL PLT MORPH; ANISOCYTOSIS 1+; BAND#(MANUAL) 1.17 x10^3/uL; BANDS%(MANUAL) 8 % (0-7); EOS#(MANUAL) 0.44 x10^3/uL (0.0-0.4); EOS% (MANUAL) 3 % (1-7); LYMPH#(MANUAL) 1.75 x10^3/uL (1-3.4); LYMPHS% (MANUAL) 12 % (22-44); METAMYELOCYTES# (MANUAL) 0.44 x10^3/uL (0-0); METAMYELOCYTES% (MANUAL) 3 % (0-1); MONOS#(MANUAL) 0.58 x10^3/uL (0.3-2.7); MONOS% (MANUAL) 4 % (2-9); MYELOCYTES# (MANUAL) 0.58 x10^3/uL (0-0); MYELOCYTES% (MANUAL) 4 % (0-0); SEG#(MANUAL) 9.64 x10^3/uL (1.8-6.8); SEGS% (MANUAL) 66 % (42-75)
[2019-07-28] MEDS: MIDODRINE 5 MG TABLET PO SCH ×3 (07:45→20:28)
[2019-07-28] MEDS: INSULIN GLARGINE 100 UNITS/ML, PEN SQ-INSULIN SCH ×2 (07:47→20:32)
[2019-07-28] MEDS: SODIUM CHLORIDE 0.9% IVPB SCH ×2 (09:28→21:28)
[2019-07-28] MEDS: ERAVACYCLINE IVPB SCH ×2 (09:28→21:28)
[2019-07-28] MEDS: ACETAMINOPHEN 650 MG/20.3 ML UDC PO PRN (12:55)
[2019-07-28] MEDS ORDERED: LIDOCAINE 1%, 20ML ONE (14:28)
[2019-07-28] MEDS ORDERED: LIDOCAINE 1%, 10ML ONE (14:28)
[2019-07-28] MEDS ORDERED: NALOXONE 1 MG/ML, 2ML ONE (14:42)
[2019-07-28] MEDS ORDERED: MIDAZOLAM 1 MG/ML, 5ML ONE (14:42)
[2019-07-28] MEDS ORDERED: FENTANYL PF 100 MCG/2ML ONE (14:42)
[2019-07-28] MEDS ORDERED: FLUMAZENIL 0.1 MG/1 ML, 5ML ONE (14:42)
[2019-07-28 15:04] LABS: MEAN CORPUSCULAR HEMOGLOBIN 29.1 pg (27.5-34.5); MEAN CORPUSCULAR HGB CONC 32.8 g/dL (33.2-36.2); MEAN CORPUSCULAR VOLUME 88.6 fL (81-97); MEAN PLATELET VOLUME 8.9 fL (7.4-10.4); PLATELET COUNT 344 x10^3/uL (130-400); RED BLOOD COUNT 2.94 x10^6/uL (4.38-5.82); RED CELL DISTRIBUTION WIDTH 17.5 % (9.4-14.8)
[2019-07-28 15:08] LABS: ALBUMIN 3.2 g/dL (3.4-5.0); ANION GAP 17 mmol/L (5-15); CALCIUM 9.6 mg/dL (8.5-10.1); CHLORIDE 100 mmol/L (98-107); CREATININE 2.11 mg/dL (0.7-1.3)
[2019-07-28] MEDS: FENTANYL PF 100 MCG/2ML IVPush PRN (15:15)
[2019-07-28 15:31] LABS: MD YES
[2019-07-28 15:35] LABS: BAND#(MANUAL) 1.28 x10^3/uL; BANDS%(MANUAL) 8 % (0-7); BASOS#(MANUAL) 0.16 x10^3/uL (0-0.1); BASOS% (MANUAL) 1 % (0-1); EOS#(MANUAL) 0.48 x10^3/uL (0.0-0.4); EOS% (MANUAL) 3 % (1-7); LYMPHS% (MANUAL) 15 % (22-44); METAMYELOCYTES# (MANUAL) 0.48 x10^3/uL (0-0); METAMYELOCYTES% (MANUAL) 3 % (0-1); MONOS% (MANUAL) 10 % (2-9); MYELOCYTES# (MANUAL) 0.48 x10^3/uL (0-0); MYELOCYTES% (MANUAL) 3 % (0-0); SEG#(MANUAL) 9.12 x10^3/uL (1.8-6.8); SEGS% (MANUAL) 57 % (42-75)
[2019-07-28 15:36] LABS: POLYCHROMASIA 1+
[2019-07-28 15:39] LABS: <PLATELET ESTIMATE> ADEQUATE; <PLT MORPHOLOGY> NORMAL PLT MORPH; ROULEAUX 1+
[2019-07-28] MEDS: CIPROFLOXACIN/DEXT 200MG PMX 100 ML IVPB SCH (16:30)
[2019-07-28] MEDS: MICAFUNGIN 100 MG in SODIUM CHLORIDE 0.9% 100 ML IV SCH (20:28)
[2019-07-28] MEDS ORDERED: CIPROFLOXACIN/DEXTROSE 200 MG/100 ML PREMIX IVPB SCH (21:00)
[2019-07-29] MEDS: OXYcodone 5 MG/5 ML ORAL.SOL UDC PO PRN ×2 (02:33→21:21)
[2019-07-29] MEDS: CIPROFLOXACIN/DEXT 200MG PMX 100 ML IVPB SCH ×2 (02:33→14:08)
[2019-07-29] MEDS: ALBUTEROL SULFATE 2.5 MG/3 ML NPPB SCH ×6 (02:43→20:36)
[2019-07-29] MEDS: INSULIN LISPRO 100 UNITS/ML, PEN SQ-INSULIN SCH ×4 (03:00→21:00)
[2019-07-29 04:32] VITALS: BP 123/73
[2019-07-29 04:41] LABS: CHLORIDE 102 mmol/L (98-107)
[2019-07-29 04:42] LABS: MEAN CORPUSCULAR HGB CONC 32.8 g/dL (33.2-36.2); MEAN CORPUSCULAR VOLUME 88.5 fL (81-97); MEAN PLATELET VOLUME 9.2 fL (7.4-10.4); PLATELET COUNT 317 x10^3/uL (130-400); RED BLOOD COUNT 2.84 x10^6/uL (4.38-5.82); RED CELL DISTRIBUTION WIDTH 17.7 % (9.4-14.8)
[2019-07-29] MEDS: HEPARIN 5,000 UNITS/ML, 1ML SQ SCH ×3 (04:50→19:48)
[2019-07-29 04:51] LABS: ALANINE AMINOTRANSFERASE 29 U/L (12-78); ALBUMIN 2.8 g/dL (3.4-5.0); ALKALINE PHOSPHATASE 118 U/L (45-117); ANION GAP 16 mmol/L (5-15); BILIRUBIN,TOTAL 0.5 mg/dL (0.2-1.0); CALCIUM 9.3 mg/dL (8.5-10.1); CREATININE 2.45 mg/dL (0.7-1.3); TOTAL PROTEIN 7.4 g/dL (6.4-8.2)
[2019-07-29] MEDS: FENTANYL PF 100 MCG/2ML IVPush PRN ×2 (04:51→13:32)
[2019-07-29 05:00] LABS: MD YES
[2019-07-29 05:02] LABS: EOS#(MANUAL) 0.58 x10^3/uL (0.0-0.4); EOS% (MANUAL) 4 % (1-7); LYMPH#(MANUAL) 1.46 x10^3/uL (1-3.4); LYMPHS% (MANUAL) 10 % (22-44); METAMYELOCYTES# (MANUAL) 0.44 x10^3/uL (0-0); METAMYELOCYTES% (MANUAL) 3 % (0-1)
[2019-07-29 05:03] LABS: ANISOCYTOSIS 1+; POLYCHROMASIA 1+
[2019-07-29 05:04] LABS: <PLATELET ESTIMATE> ADEQUATE; <PLT MORPHOLOGY> NORMAL PLT MORPH; MICROCYTOSIS 1+
[2019-07-29 05:06] LABS: BAND#(MANUAL) 1.17 x10^3/uL; BANDS%(MANUAL) 8 % (0-7); MONOS#(MANUAL) 1.61 x10^3/uL (0.3-2.7); MONOS% (MANUAL) 11 % (2-9); MYELOCYTES# (MANUAL) 0.44 x10^3/uL (0-0); MYELOCYTES% (MANUAL) 3 % (0-0); SEG#(MANUAL) 8.91 x10^3/uL (1.8-6.8); SEGS% (MANUAL) 61 % (42-75)
[2019-07-29] MEDS: MIDODRINE 5 MG TABLET PO SCH ×3 (08:47→21:21)
[2019-07-29] MEDS: ERAVACYCLINE IVPB SCH (08:47)
[2019-07-29] MEDS: SODIUM CHLORIDE 0.9% IVPB SCH (08:47)
[2019-07-29] MEDS: INSULIN GLARGINE 100 UNITS/ML, PEN SQ-INSULIN SCH ×2 (08:49→21:10)
[2019-07-29] MEDS: FENTANYL 50 MCG PATCH TD SCH (08:49)
[2019-07-29] MEDS ORDERED: CEFTAZIDIME/AVIBACTAM 0.94 GM in SODIUM CHLORIDE 0.9% 100 ML IVPB SCH (12:00)
[2019-07-29] MEDS: CEFTAZIDIME/AVIBACTAM 0.94 GM in SODIUM CHLORIDE 0.9% 50 ML IVPB SCH (12:45)
[2019-07-29] MEDS: DAKIN'S SOLUTION 1/4 STRENGTH 1,000 ML IRRIG SOLN EXT SCH (16:02)
[2019-07-29] MEDS: DAPTOMYCIN IV SCH (19:48)
[2019-07-29] MEDS: SODIUM CHLORIDE 0.9% IV SCH (19:48)
[2019-07-29] MEDS: MICAFUNGIN 100 MG in SODIUM CHLORIDE 0.9% 100 ML IV SCH (20:58)
[2019-07-29] MEDS: ACETAMINOPHEN 650 MG/20.3 ML UDC PO PRN (21:28)
[2019-07-30] MEDS: FENTANYL PF 100 MCG/2ML IVPush PRN ×3 (00:27→21:12)
[2019-07-30] MEDS: CIPROFLOXACIN/DEXT 200MG PMX 100 ML IVPB SCH (01:52)
[2019-07-30] MEDS: INSULIN LISPRO 100 UNITS/ML, PEN SQ-INSULIN SCH ×5 (03:01→21:00)
[2019-07-30] MEDS: ALBUTEROL SULFATE 2.5 MG/3 ML NPPB SCH ×7 (03:20→22:28)
[2019-07-30 03:27] LABS: MEAN CORPUSCULAR HEMOGLOBIN 29.1 pg (27.5-34.5); MEAN CORPUSCULAR HGB CONC 32.7 g/dL (33.2-36.2); MEAN CORPUSCULAR VOLUME 88.9 fL (81-97); MEAN PLATELET VOLUME 9.2 fL (7.4-10.4); PLATELET COUNT 312 x10^3/uL (130-400); RED BLOOD COUNT 2.83 x10^6/uL (4.38-5.82); RED CELL DISTRIBUTION WIDTH 18.4 % (9.4-14.8)
[2019-07-30 03:33] LABS: MD YES
[2019-07-30 03:37] LABS: ANION GAP 14 mmol/L (5-15); CALCIUM 9.8 mg/dL (8.5-10.1); CHLORIDE 102 mmol/L (98-107); CREATININE 2.01 mg/dL (0.7-1.3)
[2019-07-30 03:38] LABS: BAND#(MANUAL) 0.76 x10^3/uL; BANDS%(MANUAL) 6 % (0-7); EOS#(MANUAL) 0.25 x10^3/uL (0.0-0.4); EOS% (MANUAL) 2 % (1-7); LYMPH#(MANUAL) 2.27 x10^3/uL (1-3.4); LYMPHS% (MANUAL) 18 % (22-44); MONOS#(MANUAL) 0.76 x10^3/uL (0.3-2.7); MONOS% (MANUAL) 6 % (2-9)
[2019-07-30 03:40] LABS: ANISOCYTOSIS 1+; METAMYELOCYTES# (MANUAL) 0.38 x10^3/uL (0-0); METAMYELOCYTES% (MANUAL) 3 % (0-1); MICROCYTOSIS 1+; MYELOCYTES# (MANUAL) 0.25 x10^3/uL (0-0); MYELOCYTES% (MANUAL) 2 % (0-0); POLYCHROMASIA 1+; SEG#(MANUAL) 7.94 x10^3/uL (1.8-6.8); SEGS% (MANUAL) 63 % (42-75)
[2019-07-30 03:41] LABS: <PLATELET ESTIMATE> ADEQUATE; <PLT MORPHOLOGY> NORMAL PLT MORPH
[2019-07-30 04:00] VITALS: BP 108/65
[2019-07-30] MEDS: HEPARIN 5,000 UNITS/ML, 1ML SQ SCH ×3 (04:53→21:11)
[2019-07-30] MEDS: MIDODRINE 5 MG TABLET PO SCH ×3 (08:47→21:12)
[2019-07-30] MEDS: SEVELAMER 2.4 GM POWD.PACK JT SCH ×3 (08:47→21:11)
[2019-07-30] MEDS: INSULIN GLARGINE 100 UNITS/ML, PEN SQ-INSULIN SCH ×2 (08:48→21:21)
[2019-07-30] MEDS: OXYcodone 5 MG/5 ML ORAL.SOL UDC PO PRN ×2 (11:30→18:22)
[2019-07-30] MEDS: METRONIDAZOLE PMX 500MG/100ML 100 ML IV SCH ×2 (12:16→21:11)
[2019-07-30] MEDS: ALBUMIN HUMAN 25% 100 ML IV PRN ×3 (13:03→14:36)
[2019-07-30] MEDS: MICAFUNGIN 100 MG in SODIUM CHLORIDE 0.9% 100 ML IV SCH (18:25)
[2019-07-31] MEDS: ALBUTEROL SULFATE 2.5 MG/3 ML NPPB SCH ×2 (02:33→06:30)
[2019-07-31] MEDS: HEPARIN 5,000 UNITS/ML, 1ML SQ SCH ×3 (03:28→21:59)
[2019-07-31] MEDS: INSULIN LISPRO 100 UNITS/ML, PEN SQ-INSULIN SCH ×5 (03:31→21:48)
[2019-07-31 03:37] VITALS: BP 106/50
[2019-07-31] MEDS: METRONIDAZOLE PMX 500MG/100ML 100 ML IV SCH ×3 (05:05→22:05)
[2019-07-31 05:29] LABS: MEAN CORPUSCULAR HEMOGLOBIN 29.2 pg (27.5-34.5); MEAN CORPUSCULAR HGB CONC 32.5 g/dL (33.2-36.2); MEAN CORPUSCULAR VOLUME 89.6 fL (81-97); MEAN PLATELET VOLUME 9.4 fL (7.4-10.4); PLATELET COUNT 277 x10^3/uL (130-400); RED BLOOD COUNT 3.24 x10^6/uL (4.38-5.82); RED CELL DISTRIBUTION WIDTH 18.6 % (9.4-14.8)
[2019-07-31 05:38] LABS: ANION GAP 14 mmol/L (5-15); CALCIUM 10.8 mg/dL (8.5-10.1); CHLORIDE 99 mmol/L (98-107); CREATININE 2.32 mg/dL (0.7-1.3)
[2019-07-31 05:59] LABS: MD YES
[2019-07-31 06:00] LABS: BAND#(MANUAL) 0.91 x10^3/uL; BANDS%(MANUAL) 6 % (0-7); EOS#(MANUAL) 0.15 x10^3/uL (0.0-0.4); EOS% (MANUAL) 1 % (1-7); LYMPH#(MANUAL) 1.52 x10^3/uL (1-3.4); LYMPHS% (MANUAL) 10 % (22-44); METAMYELOCYTES# (MANUAL) 0.76 x10^3/uL (0-0); METAMYELOCYTES% (MANUAL) 5 % (0-1); MONOS#(MANUAL) 1.06 x10^3/uL (0.3-2.7); MONOS% (MANUAL) 7 % (2-9); MYELOCYTES# (MANUAL) 0.15 x10^3/uL (0-0); MYELOCYTES% (MANUAL) 1 % (0-0); SEG#(MANUAL) 10.64 x10^3/uL (1.8-6.8); SEGS% (MANUAL) 70 % (42-75)
[2019-07-31 06:01] LABS: <PLATELET ESTIMATE> ADEQUATE; <PLT MORPHOLOGY> NORMAL PLT MORPH; ANISOCYTOSIS 1+; MICROCYTOSIS 1+; POLYCHROMASIA 1+
[2019-07-31] MEDS: SEVELAMER 2.4 GM POWD.PACK JT SCH ×3 (07:35→22:00)
[2019-07-31] MEDS: INSULIN GLARGINE 100 UNITS/ML, PEN SQ-INSULIN SCH ×2 (07:35→21:48)
[2019-07-31] MEDS: MIDODRINE 5 MG TABLET PO SCH ×3 (07:35→22:00)
[2019-07-31] MEDS: DAKIN'S SOLUTION 1/4 STRENGTH 1,000 ML IRRIG SOLN EXT SCH (07:57)
[2019-07-31] MEDS: ALBUMIN HUMAN 25% 100 ML IV PRN ×3 (08:12→10:31)
[2019-07-31] MEDS: OXYcodone 5 MG/5 ML ORAL.SOL UDC PO PRN ×3 (08:53→20:14)
[2019-07-31] MEDS: LACTOBACILLUS CHEW TABLET PO SCH ×3 (08:53→21:59)
[2019-07-31] MEDS: DEXMEDETOMIDINE 1,000 MCG in SODIUM CHLORIDE 0.9% 240 ML IV PRN (12:46)
[2019-07-31] MEDS: CEFTAZIDIME/AVIBACTAM 0.94 GM in SODIUM CHLORIDE 0.9% 50 ML IVPB SCH (12:47)
[2019-07-31] MEDS: FENTANYL PF 100 MCG/2ML IVPush PRN ×2 (13:08→23:20)
[2019-07-31] MEDS ORDERED: SODIUM CHLORIDE 0.9% 500 ML IV SCH (18:00)
[2019-07-31] MEDS ORDERED: SODIUM CHLORIDE 0.9% 500 ML IV ONE (18:30)
[2019-07-31] MEDS: MICAFUNGIN 100 MG in SODIUM CHLORIDE 0.9% 100 ML IV SCH (20:18)
[2019-07-31] MEDS: SODIUM CHLORIDE 0.9% IV SCH (21:44)
[2019-07-31] MEDS: DAPTOMYCIN IV SCH (21:44)
[2019-08-01] MEDS: OXYcodone 5 MG/5 ML ORAL.SOL UDC PO PRN ×4 (03:08→21:06)
[2019-08-01] MEDS: TRAZODONE 150MG TABLET PO PRN (03:37)
[2019-08-01] MEDS: METRONIDAZOLE PMX 500MG/100ML 100 ML IV SCH ×3 (03:45→22:10)
[2019-08-01] MEDS: HEPARIN 5,000 UNITS/ML, 1ML SQ SCH ×3 (03:46→20:48)
[2019-08-01] MEDS: LIDOCAINE-MPF 1%, 2ML ENDO PRN (03:50)
[2019-08-01 04:56] LABS: MEAN CORPUSCULAR HGB CONC 32.5 g/dL (33.2-36.2); MEAN CORPUSCULAR VOLUME 89.1 fL (81-97); MEAN PLATELET VOLUME 9.6 fL (7.4-10.4); PLATELET COUNT 271 x10^3/uL (130-400); RED BLOOD COUNT 3.09 x10^6/uL (4.38-5.82); RED CELL DISTRIBUTION WIDTH 18.3 % (9.4-14.8)
[2019-08-01 05:06] LABS: ANION GAP 13 mmol/L (5-15); CALCIUM 10.3 mg/dL (8.5-10.1); CHLORIDE 100 mmol/L (98-107); CREATININE 2.35 mg/dL (0.7-1.3)
[2019-08-01 05:34] LABS: MD YES
[2019-08-01 05:36] LABS: ANISOCYTOSIS 1+; BAND#(MANUAL) 0.34 x10^3/uL; BANDS%(MANUAL) 2 % (0-7); EOS#(MANUAL) 0.17 x10^3/uL (0.0-0.4); EOS% (MANUAL) 1 % (1-7); LYMPH#(MANUAL) 2.41 x10^3/uL (1-3.4); LYMPHS% (MANUAL) 14 % (22-44); MICROCYTOSIS 1+; MONOS#(MANUAL) 0.86 x10^3/uL (0.3-2.7); MONOS% (MANUAL) 5 % (2-9); MYELOCYTES# (MANUAL) 0.34 x10^3/uL (0-0); MYELOCYTES% (MANUAL) 2 % (0-0); SEG#(MANUAL) 13.07 x10^3/uL (1.8-6.8); SEGS% (MANUAL) 76 % (42-75)
[2019-08-01 05:37] LABS: <PLATELET ESTIMATE> ADEQUATE; <PLT MORPHOLOGY> NORMAL PLT MORPH; POLYCHROMASIA 1+
[2019-08-01] MEDS: INSULIN LISPRO 100 UNITS/ML, PEN SQ-INSULIN SCH ×4 (05:58→23:45)
[2019-08-01] MEDS: FENTANYL 50 MCG PATCH TD SCH (08:18)
[2019-08-01] MEDS: SEVELAMER 2.4 GM POWD.PACK JT SCH ×3 (08:21→20:48)
[2019-08-01] MEDS: MIDODRINE 5 MG TABLET PO SCH ×3 (08:21→20:48)
[2019-08-01] MEDS: LACTOBACILLUS CHEW TABLET PO SCH ×3 (08:21→20:48)
[2019-08-01] MEDS: INSULIN GLARGINE 100 UNITS/ML, PEN SQ-INSULIN SCH ×2 (08:28→20:55)
[2019-08-01] MEDS: ACETAMINOPHEN 650 MG/20.3 ML UDC PO PRN (15:49)
[2019-08-01] MEDS: MICAFUNGIN 100 MG in SODIUM CHLORIDE 0.9% 100 ML IV SCH (20:47)
[2019-08-01] MEDS: ERGOCALCIFEROL 50,000 UNIT CAPSULE PO SCH (20:48)
[2019-08-01] MEDS: ONDANSETRON 2MG/ML, 2ML IVPush PRN (21:20)
[2019-08-02] MEDS: OXYcodone 5 MG/5 ML ORAL.SOL UDC PO PRN ×5 (01:26→20:20)
[2019-08-02] MEDS: DAKIN'S SOLUTION 1/4 STRENGTH 1,000 ML IRRIG SOLN EXT SCH (03:37)
[2019-08-02] MEDS: HEPARIN 5,000 UNITS/ML, 1ML SQ SCH ×3 (04:00→20:17)
[2019-08-02] MEDS: DEXMEDETOMIDINE 1,000 MCG in SODIUM CHLORIDE 0.9% 240 ML IV PRN (05:08)
[2019-08-02] MEDS: INSULIN LISPRO 100 UNITS/ML, PEN SQ-INSULIN SCH ×4 (05:28→22:42)
[2019-08-02] MEDS: METRONIDAZOLE PMX 500MG/100ML 100 ML IV SCH ×3 (05:37→22:39)
[2019-08-02 06:00] LABS: ANION GAP 12 mmol/L (5-15); CALCIUM 10.5 mg/dL (8.5-10.1); CHLORIDE 100 mmol/L (98-107); CREATININE 2.37 mg/dL (0.7-1.3)
[2019-08-02 06:23] LABS: MEAN CORPUSCULAR HEMOGLOBIN 28.7 pg (27.5-34.5); MEAN CORPUSCULAR HGB CONC 32.4 g/dL (33.2-36.2); MEAN CORPUSCULAR VOLUME 88.4 fL (81-97); PLATELET COUNT 279 x10^3/uL (130-400); RED BLOOD COUNT 2.83 x10^6/uL (4.38-5.82); RED CELL DISTRIBUTION WIDTH 18.8 % (9.4-14.8)
[2019-08-02 06:24] LABS: MD YES
[2019-08-02 06:49] LABS: <PLATELET ESTIMATE> ADEQUATE; <PLT MORPHOLOGY> NORMAL PLT MORPH; ANISOCYTOSIS 1+; BAND#(MANUAL) 0.94 x10^3/uL; BANDS%(MANUAL) 4 % (0-7); EOS#(MANUAL) 0.71 x10^3/uL (0.0-0.4); EOS% (MANUAL) 3 % (1-7); LYMPH#(MANUAL) 5.43 x10^3/uL (1-3.4); LYMPHS% (MANUAL) 23 % (22-44); METAMYELOCYTES# (MANUAL) 1.89 x10^3/uL (0-0); METAMYELOCYTES% (MANUAL) 8 % (0-1); MICROCYTOSIS 1+; MONOS#(MANUAL) 1.89 x10^3/uL (0.3-2.7); MONOS% (MANUAL) 8 % (2-9); MYELOCYTES# (MANUAL) 0.24 x10^3/uL (0-0); MYELOCYTES% (MANUAL) 1 % (0-0); POLYCHROMASIA 1+; SEG#(MANUAL) 12.51 x10^3/uL (1.8-6.8); SEGS% (MANUAL) 53 % (42-75)
[2019-08-02] MEDS: SEVELAMER 2.4 GM POWD.PACK JT SCH ×3 (07:46→20:17)
[2019-08-02] MEDS: MIDODRINE 5 MG TABLET PO SCH ×3 (07:46→20:17)
[2019-08-02] MEDS: LACTOBACILLUS CHEW TABLET PO SCH ×3 (07:46→20:17)
[2019-08-02] MEDS: INSULIN GLARGINE 100 UNITS/ML, PEN SQ-INSULIN SCH ×2 (07:49→20:20)
[2019-08-02] MEDS: ACETAMINOPHEN 650 MG/20.3 ML UDC PO PRN (10:51)
[2019-08-02] MEDS: CEFTAZIDIME/AVIBACTAM 0.94 GM in SODIUM CHLORIDE 0.9% 50 ML IVPB SCH (12:45)
[2019-08-02] MEDS: FENTANYL PF 100 MCG/2ML IVPush PRN (14:54)
[2019-08-02] MEDS: ONDANSETRON 2MG/ML, 2ML IVPush PRN (20:18)
[2019-08-02] MEDS: MICAFUNGIN 100 MG in SODIUM CHLORIDE 0.9% 100 ML IV SCH (20:20)
[2019-08-02] MEDS: SODIUM CHLORIDE 0.9% IV SCH (20:47)
[2019-08-02] MEDS: DAPTOMYCIN IV SCH (20:47)
[2019-08-02] MEDS: LORazepam 2 MG/ML, 1ML IVPush PRN (22:52)
[2019-08-03] MEDS: ONDANSETRON 2MG/ML, 2ML IVPush PRN (03:21)
[2019-08-03] MEDS: OXYcodone 5 MG/5 ML ORAL.SOL UDC PO PRN ×4 (03:37→21:55)
[2019-08-03] MEDS: HEPARIN 5,000 UNITS/ML, 1ML SQ SCH ×3 (03:37→20:20)
[2019-08-03 05:06] LABS: MEAN CORPUSCULAR HEMOGLOBIN 29.3 pg (27.5-34.5); MEAN CORPUSCULAR HGB CONC 32.5 g/dL (33.2-36.2); MEAN CORPUSCULAR VOLUME 90.1 fL (81-97); MEAN PLATELET VOLUME 9.3 fL (7.4-10.4); PLATELET COUNT 276 x10^3/uL (130-400); RED BLOOD COUNT 2.77 x10^6/uL (4.38-5.82); RED CELL DISTRIBUTION WIDTH 18.3 % (9.4-14.8)
[2019-08-03 05:11] LABS: ANION GAP 12 mmol/L (5-15); CALCIUM 10.2 mg/dL (8.5-10.1); CHLORIDE 99 mmol/L (98-107); CREATININE 1.95 mg/dL (0.7-1.3)
[2019-08-03] MEDS: FENTANYL PF 100 MCG/2ML IVPush PRN (05:17)
[2019-08-03] MEDS: INSULIN LISPRO 100 UNITS/ML, PEN SQ-INSULIN SCH ×4 (05:20→23:00)
[2019-08-03] MEDS: METRONIDAZOLE PMX 500MG/100ML 100 ML IV SCH ×3 (05:29→22:59)
[2019-08-03 05:42] LABS: MD YES
[2019-08-03 05:43] LABS: BANDS%(MANUAL) 7 % (0-7); EOS#(MANUAL) 0.74 x10^3/uL (0.0-0.4); EOS% (MANUAL) 4 % (1-7); LYMPH#(MANUAL) 2.23 x10^3/uL (1-3.4); LYMPHS% (MANUAL) 12 % (22-44); METAMYELOCYTES# (MANUAL) 0.74 x10^3/uL (0-0); METAMYELOCYTES% (MANUAL) 4 % (0-1); MONOS#(MANUAL) 0.93 x10^3/uL (0.3-2.7); MONOS% (MANUAL) 5 % (2-9); MYELOCYTES# (MANUAL) 0.19 x10^3/uL (0-0); MYELOCYTES% (MANUAL) 1 % (0-0); NRBC % (MANUAL) 2 % (0-1); SEG#(MANUAL) 12.46 x10^3/uL (1.8-6.8); SEGS% (MANUAL) 67 % (42-75)
[2019-08-03 05:44] LABS: ANISOCYTOSIS 1+; POLYCHROMASIA 1+
[2019-08-03 05:45] LABS: <PLATELET ESTIMATE> ADEQUATE; <PLT MORPHOLOGY> NORMAL PLT MORPH
[2019-08-03] MEDS: ALBUTEROL SULFATE 2.5 MG/3 ML NPPB PRN (06:57)
[2019-08-03] MEDS: MIDODRINE 5 MG TABLET PO SCH ×3 (08:56→21:51)
[2019-08-03] MEDS: LACTOBACILLUS CHEW TABLET PO SCH ×3 (08:56→21:51)
[2019-08-03] MEDS ORDERED: SEVELAMER 2.4 GM POWD.PACK JT SCH (09:00)
[2019-08-03] MEDS: INSULIN GLARGINE 100 UNITS/ML, PEN SQ-INSULIN SCH ×2 (09:09→22:00)
[2019-08-03 16:58] LABS: MICROSCOPIC INDICATED
[2019-08-03] MEDS: SEVELAMER 2.4 GM POWD.PACK JT SCH (17:39)
[2019-08-03] MEDS: MICAFUNGIN 100 MG in SODIUM CHLORIDE 0.9% 100 ML IV SCH (20:15)
[2019-08-03] MEDS: LORazepam 2 MG/ML, 1ML IVPush PRN (23:03)
[2019-08-04] MEDS: HEPARIN 5,000 UNITS/ML, 1ML SQ SCH ×3 (03:14→20:18)
[2019-08-04] MEDS: FENTANYL PF 100 MCG/2ML IVPush PRN ×2 (03:14→23:23)
[2019-08-04 04:41] LABS: MEAN CORPUSCULAR HEMOGLOBIN 29.6 pg (27.5-34.5); MEAN CORPUSCULAR HGB CONC 33.2 g/dL (33.2-36.2); MEAN PLATELET VOLUME 8.9 fL (7.4-10.4); PLATELET COUNT 280 x10^3/uL (130-400); RED BLOOD COUNT 2.77 x10^6/uL (4.38-5.82); RED CELL DISTRIBUTION WIDTH 18.2 % (9.4-14.8)
[2019-08-04] MEDS: INSULIN LISPRO 100 UNITS/ML, PEN SQ-INSULIN SCH ×4 (05:00→21:00)
[2019-08-04 05:05] LABS: ANION GAP 10 mmol/L (5-15); CALCIUM 10.7 mg/dL (8.5-10.1); CHLORIDE 98 mmol/L (98-107)
[2019-08-04 05:06] LABS: CREATININE 2.49 mg/dL (0.7-1.3)
[2019-08-04] MEDS: METRONIDAZOLE PMX 500MG/100ML 100 ML IV SCH ×3 (05:36→22:00)
[2019-08-04] MEDS: OXYcodone 5 MG/5 ML ORAL.SOL UDC PO PRN ×4 (05:36→22:32)
[2019-08-04 05:39] LABS: MD YES
[2019-08-04 05:41] LABS: BAND#(MANUAL) 0.62 x10^3/uL; BANDS%(MANUAL) 4 % (0-7); EOS#(MANUAL) 0.31 x10^3/uL (0.0-0.4); EOS% (MANUAL) 2 % (1-7); LYMPHS% (MANUAL) 13 % (22-44); METAMYELOCYTES# (MANUAL) 0.92 x10^3/uL (0-0); METAMYELOCYTES% (MANUAL) 6 % (0-1); MONOS#(MANUAL) 0.46 x10^3/uL (0.3-2.7); MONOS% (MANUAL) 3 % (2-9); MYELOCYTES# (MANUAL) 0.15 x10^3/uL (0-0); MYELOCYTES% (MANUAL) 1 % (0-0); SEG#(MANUAL) 10.93 x10^3/uL (1.8-6.8); SEGS% (MANUAL) 71 % (42-75)
[2019-08-04 05:42] LABS: <PLATELET ESTIMATE> ADEQUATE; ANISOCYTOSIS 1+; LARGE PLATELETS 1+; POLYCHROMASIA 1+
[2019-08-04] MEDS: SEVELAMER 2.4 GM POWD.PACK JT SCH ×2 (08:00→18:31)
[2019-08-04] MEDS: DAKIN'S SOLUTION 1/4 STRENGTH 1,000 ML IRRIG SOLN EXT SCH (09:00)
[2019-08-04] MEDS: MIDODRINE 5 MG TABLET PO SCH ×3 (10:18→21:00)
[2019-08-04] MEDS: LACTOBACILLUS CHEW TABLET PO SCH ×3 (10:18→21:00)
[2019-08-04] MEDS: LACTULOSE 20 GM/30 ML UDC NG PRN (10:19)
[2019-08-04] MEDS: FENTANYL 50 MCG PATCH TD SCH (10:24)
[2019-08-04] MEDS: LORazepam 2 MG/ML, 1ML IVPush PRN (10:47)
[2019-08-04] MEDS: INSULIN GLARGINE 100 UNITS/ML, PEN SQ-INSULIN SCH ×2 (13:00→21:00)
[2019-08-04] MEDS: CEFTAZIDIME/AVIBACTAM 0.94 GM in SODIUM CHLORIDE 0.9% 50 ML IVPB SCH (19:06)
[2019-08-04] MEDS: DAPTOMYCIN IV SCH (20:17)
[2019-08-04] MEDS: SODIUM CHLORIDE 0.9% IV SCH (20:17)
[2019-08-04] MEDS: MICAFUNGIN 100 MG in SODIUM CHLORIDE 0.9% 100 ML IV SCH (20:23)
[2019-08-04] MEDS: TRAZODONE 150MG TABLET PO PRN (22:31)
[2019-08-05] MEDS: INSULIN LISPRO 100 UNITS/ML, PEN SQ-INSULIN SCH ×4 (03:00→21:00)
[2019-08-05] MEDS: OXYcodone 5 MG/5 ML ORAL.SOL UDC PO PRN ×3 (03:39→21:58)
[2019-08-05] MEDS: HEPARIN 5,000 UNITS/ML, 1ML SQ SCH ×3 (03:41→20:30)
[2019-08-05] MEDS: LACTULOSE 20 GM/30 ML UDC NG PRN (03:48)
[2019-08-05] MEDS: METRONIDAZOLE PMX 500MG/100ML 100 ML IV SCH ×3 (06:21→21:55)
[2019-08-05] MEDS: ONDANSETRON 2MG/ML, 2ML IVPush PRN ×2 (06:47→16:16)
[2019-08-05] MEDS: SEVELAMER 2.4 GM POWD.PACK JT SCH ×2 (08:00→16:16)
[2019-08-05] MEDS: INSULIN GLARGINE 100 UNITS/ML, PEN SQ-INSULIN SCH ×2 (09:00→21:00)
[2019-08-05] MEDS: METHYLNALTREXONE 12 MG/0.6 ML SYR SQ SCH (09:49)
[2019-08-05] MEDS: BUPROPION 100 MG TABLET PO SCH ×2 (09:49→21:55)
[2019-08-05] MEDS: MIDODRINE 5 MG TABLET PO SCH ×3 (09:49→21:57)
[2019-08-05] MEDS: LACTOBACILLUS CHEW TABLET PO SCH ×3 (09:49→21:54)
[2019-08-05] MEDS: PROMETHAZINE 25MG TABLET PO PRN (13:11)
[2019-08-05] MEDS: DAKIN'S SOLUTION 1/4 STRENGTH 1,000 ML IRRIG SOLN EXT SCH (18:35)
[2019-08-05] MEDS: MICAFUNGIN 100 MG in SODIUM CHLORIDE 0.9% 100 ML IV SCH (20:30)
[2019-08-05 21:55] VITALS: BP 131/80
[2019-08-05] MEDS: TRAZODONE 150MG TABLET PO PRN (21:58)
[2019-08-06] MEDS: OXYcodone 5 MG/5 ML ORAL.SOL UDC PO PRN ×2 (03:01→12:52)
[2019-08-06] MEDS: INSULIN LISPRO 100 UNITS/ML, PEN SQ-INSULIN SCH ×4 (03:04→21:00)
[2019-08-06] MEDS: HEPARIN 5,000 UNITS/ML, 1ML SQ SCH ×3 (04:15→21:21)
[2019-08-06] MEDS: METRONIDAZOLE PMX 500MG/100ML 100 ML IV SCH ×3 (05:47→22:59)
[2019-08-06] MEDS: SEVELAMER 2.4 GM POWD.PACK JT SCH ×2 (09:04→16:14)
[2019-08-06] MEDS: BUPROPION 100 MG TABLET PO SCH ×2 (09:04→21:22)
[2019-08-06] MEDS: MIDODRINE 5 MG TABLET PO SCH ×3 (09:04→21:21)
[2019-08-06] MEDS: INSULIN GLARGINE 100 UNITS/ML, PEN SQ-INSULIN SCH ×2 (09:04→21:41)
[2019-08-06] MEDS: LACTOBACILLUS CHEW TABLET PO SCH ×3 (09:04→21:21)
[2019-08-06] MEDS ORDERED: SCOPOLAMINE PATCH, 1.5MG PATCH.TD72 TD ONE (10:00)
[2019-08-06] MEDS: CEFTAZIDIME/AVIBACTAM 0.94 GM in SODIUM CHLORIDE 0.9% 50 ML IVPB SCH ×2 (12:00→12:30)
[2019-08-06] MEDS: SODIUM CHLORIDE 0.9% IV SCH (19:49)
[2019-08-06] MEDS: DAPTOMYCIN IV SCH (19:49)
[2019-08-06] MEDS: MICAFUNGIN 100 MG in SODIUM CHLORIDE 0.9% 100 ML IV SCH (21:20)
[2019-08-07] MEDS: OXYcodone 5 MG/5 ML ORAL.SOL UDC PO PRN ×5 (00:03→20:08)
[2019-08-07] MEDS: HEPARIN 5,000 UNITS/ML, 1ML SQ SCH ×3 (04:05→19:56)
[2019-08-07] MEDS: INSULIN LISPRO 100 UNITS/ML, PEN SQ-INSULIN SCH ×4 (04:10→21:34)
[2019-08-07] MEDS: METRONIDAZOLE PMX 500MG/100ML 100 ML IV SCH ×3 (06:16→22:38)
[2019-08-07 07:14] LABS: MEAN CORPUSCULAR HGB CONC 32.9 g/dL (33.2-36.2); MEAN CORPUSCULAR VOLUME 88.1 fL (81-97); MEAN PLATELET VOLUME 7.9 fL (7.4-10.4); PLATELET COUNT 285 x10^3/uL (130-400); RED BLOOD COUNT 2.59 x10^6/uL (4.38-5.82); RED CELL DISTRIBUTION WIDTH 19.7 % (9.4-14.8)
[2019-08-07 07:19] LABS: ALBUMIN 2.9 g/dL (3.4-5.0); ANION GAP 11 mmol/L (5-15); CALCIUM 10.2 mg/dL (8.5-10.1); CHLORIDE 95 mmol/L (98-107); CREATININE 2.93 mg/dL (0.7-1.3)
[2019-08-07 07:20] LABS: MD YES
[2019-08-07 07:21] LABS: ANISOCYTOSIS 1+; BAND#(MANUAL) 0.79 x10^3/uL; BANDS%(MANUAL) 6 % (0-7); EOS#(MANUAL) 0.13 x10^3/uL (0.0-0.4); EOS% (MANUAL) 1 % (1-7); LYMPH#(MANUAL) 1.98 x10^3/uL (1-3.4); LYMPHS% (MANUAL) 15 % (22-44); METAMYELOCYTES% (MANUAL) 3 % (0-1); MONOS#(MANUAL) 0.79 x10^3/uL (0.3-2.7); MONOS% (MANUAL) 6 % (2-9); MYELOCYTES# (MANUAL) 0.13 x10^3/uL (0-0); MYELOCYTES% (MANUAL) 1 % (0-0); NRBC % (MANUAL) 1 % (0-1); POLYCHROMASIA 1+; SEG#(MANUAL) 8.98 x10^3/uL (1.8-6.8); SEGS% (MANUAL) 68 % (42-75)
[2019-08-07 07:22] LABS: <PLATELET ESTIMATE> ADEQUATE; <PLT MORPHOLOGY> NORMAL PLT MORPH
[2019-08-07] MEDS: METHYLNALTREXONE 12 MG/0.6 ML SYR SQ SCH (08:32)
[2019-08-07] MEDS: SEVELAMER 2.4 GM POWD.PACK JT SCH ×3 (08:32→17:13)
[2019-08-07] MEDS: LACTOBACILLUS CHEW TABLET PO SCH ×3 (08:33→21:23)
[2019-08-07] MEDS: BUPROPION 100 MG TABLET PO SCH ×2 (08:33→21:23)
[2019-08-07] MEDS: MIDODRINE 5 MG TABLET PO SCH ×3 (08:33→21:00)
[2019-08-07] MEDS: FENTANYL 50 MCG PATCH TD SCH (08:33)
[2019-08-07] MEDS: INSULIN GLARGINE 100 UNITS/ML, PEN SQ-INSULIN SCH ×2 (08:34→21:36)
[2019-08-07] MEDS: ALBUMIN HUMAN 25% 100 ML IV PRN (09:47)
[2019-08-07] MEDS: FENTANYL PF 100 MCG/2ML IVPush PRN ×2 (12:14→18:16)
[2019-08-07] MEDS: DAKIN'S SOLUTION 1/4 STRENGTH 1,000 ML IRRIG SOLN EXT SCH (17:15)
[2019-08-07] MEDS: CEFTAZIDIME/AVIBACTAM 0.94 GM in SODIUM CHLORIDE 0.9% 50 ML IVPB SCH (17:59)
[2019-08-07] MEDS: MICAFUNGIN 100 MG in SODIUM CHLORIDE 0.9% 100 ML IV SCH (19:56)
[2019-08-08] MEDS: FENTANYL PF 100 MCG/2ML IVPush PRN ×4 (00:08→21:16)
[2019-08-08] MEDS: INSULIN LISPRO 100 UNITS/ML, PEN SQ-INSULIN SCH ×4 (03:00→21:00)
[2019-08-08] MEDS: HEPARIN 5,000 UNITS/ML, 1ML SQ SCH ×3 (04:17→20:24)
[2019-08-08] MEDS: OXYcodone 5 MG/5 ML ORAL.SOL UDC PO PRN (04:19)
[2019-08-08] MEDS: METRONIDAZOLE PMX 500MG/100ML 100 ML IV SCH ×3 (06:17→22:49)
[2019-08-08 07:59] LABS: MEAN CORPUSCULAR HEMOGLOBIN 28.9 pg (27.5-34.5); MEAN CORPUSCULAR HGB CONC 32.7 g/dL (33.2-36.2); MEAN CORPUSCULAR VOLUME 88.7 fL (81-97); MEAN PLATELET VOLUME 7.7 fL (7.4-10.4); PLATELET COUNT 308 x10^3/uL (130-400); RED BLOOD COUNT 2.66 x10^6/uL (4.38-5.82); RED CELL DISTRIBUTION WIDTH 19.3 % (9.4-14.8)
[2019-08-08] MEDS: SEVELAMER 2.4 GM POWD.PACK JT SCH ×3 (08:00→17:20)
[2019-08-08 08:09] LABS: ANION GAP 7 mmol/L (5-15); CALCIUM 9.9 mg/dL (8.5-10.1); CHLORIDE 97 mmol/L (98-107); CREATININE 2.13 mg/dL (0.7-1.3)
[2019-08-08 08:23] LABS: MD YES
[2019-08-08 08:25] LABS: BAND#(MANUAL) 0.47 x10^3/uL; BANDS%(MANUAL) 4 % (0-7); EOS#(MANUAL) 0.47 x10^3/uL (0.0-0.4); EOS% (MANUAL) 4 % (1-7); LYMPH#(MANUAL) 2.12 x10^3/uL (1-3.4); LYMPHS% (MANUAL) 18 % (22-44); METAMYELOCYTES# (MANUAL) 0.24 x10^3/uL (0-0); METAMYELOCYTES% (MANUAL) 2 % (0-1); MONOS#(MANUAL) 0.83 x10^3/uL (0.3-2.7); MONOS% (MANUAL) 7 % (2-9); SEG#(MANUAL) 7.67 x10^3/uL (1.8-6.8); SEGS% (MANUAL) 65 % (42-75)
[2019-08-08 08:26] LABS: <PLATELET ESTIMATE> ADEQUATE; <PLT MORPHOLOGY> NORMAL PLT MORPH; ANISOCYTOSIS 1+; POLYCHROMASIA 1+
[2019-08-08] MEDS: MIDODRINE 5 MG TABLET PO SCH ×3 (08:32→21:19)
[2019-08-08] MEDS: LACTOBACILLUS CHEW TABLET PO SCH ×3 (08:32→21:18)
[2019-08-08] MEDS: BUPROPION 100 MG TABLET PO SCH ×2 (08:33→21:21)
[2019-08-08] MEDS: INSULIN GLARGINE 100 UNITS/ML, PEN SQ-INSULIN SCH ×2 (08:34→21:26)
[2019-08-08] MEDS: GLYCOPYRROLATE 1 MG TABLET JT SCH ×3 (09:08→21:22)
[2019-08-08] MEDS ORDERED: FENTANYL PF 250 MCG/5ML ONE (10:33)
[2019-08-08] MEDS ORDERED: MIDAZOLAM 1 MG/ML, 2ML ONE (10:33)
[2019-08-08] MEDS ORDERED: ROCURONIUM 10MG/ML,5ML ONE (12:05)
[2019-08-08] MEDS ORDERED: SUGAMMADEX 200 MG/2 ML IVPush ONE ×3 (12:07→13:09)
[2019-08-08] MEDS: ACETYLCYSTEINE 20%, 4ML NPPB SCH ×2 (14:09→20:00)
[2019-08-08] MEDS: ALBUTEROL SULFATE 2.5 MG/3 ML NPPB PRN (14:09)
[2019-08-08 15:28] VITALS: BP 97/55
[2019-08-08] MEDS: DAPTOMYCIN IV SCH (20:01)
[2019-08-08] MEDS: SODIUM CHLORIDE 0.9% IV SCH (20:01)
[2019-08-08] MEDS: PROMETHAZINE 25MG TABLET PO PRN (20:24)
[2019-08-08] MEDS: MICAFUNGIN 100 MG in SODIUM CHLORIDE 0.9% 100 ML IV SCH (21:15)
[2019-08-08] MEDS: TRAZODONE 150MG TABLET PO PRN (21:17)
[2019-08-08] MEDS: ERGOCALCIFEROL 50,000 UNIT CAPSULE PO SCH (21:22)
[2019-08-09] VITALS (8 sets, daily range): BP systolic 99–128; BP diastolic 58–82
[2019-08-09] MEDS: FENTANYL PF 100 MCG/2ML IVPush PRN ×5 (00:10→20:48)
[2019-08-09] MEDS: LORazepam 2 MG/ML, 1ML IVPush PRN (00:11)
[2019-08-09] MEDS: INSULIN LISPRO 100 UNITS/ML, PEN SQ-INSULIN SCH ×4 (03:00→21:04)
[2019-08-09] MEDS: HEPARIN 5,000 UNITS/ML, 1ML SQ SCH ×3 (03:58→20:44)
[2019-08-09] MEDS: METRONIDAZOLE PMX 500MG/100ML 100 ML IV SCH ×3 (05:16→22:24)
[2019-08-09] MEDS: ACETYLCYSTEINE 20%, 4ML NPPB SCH ×4 (07:00→20:00)
[2019-08-09] MEDS: ALBUMIN HUMAN 25% 100 ML IV PRN (07:43)
[2019-08-09 07:49] LABS: ANION GAP 12 mmol/L (5-15); CALCIUM 9.5 mg/dL (8.5-10.1); CHLORIDE 97 mmol/L (98-107); CREATININE 2.41 mg/dL (0.7-1.3)
[2019-08-09 08:02] LABS: MEAN CORPUSCULAR HEMOGLOBIN 28.8 pg (27.5-34.5); MEAN CORPUSCULAR HGB CONC 32.7 g/dL (33.2-36.2); MEAN CORPUSCULAR VOLUME 88.3 fL (81-97); MEAN PLATELET VOLUME 7.6 fL (7.4-10.4); PLATELET COUNT 303 x10^3/uL (130-400); RED BLOOD COUNT 2.37 x10^6/uL (4.38-5.82); RED CELL DISTRIBUTION WIDTH 19.9 % (9.4-14.8)
[2019-08-09 08:20] LABS: MD YES
[2019-08-09 08:21] LABS: BAND#(MANUAL) 0.27 x10^3/uL; BANDS%(MANUAL) 2 % (0-7); EOS#(MANUAL) 0.55 x10^3/uL (0.0-0.4); EOS% (MANUAL) 4 % (1-7); METAMYELOCYTES# (MANUAL) 0.27 x10^3/uL (0-0); METAMYELOCYTES% (MANUAL) 2 % (0-1); MONOS#(MANUAL) 0.69 x10^3/uL (0.3-2.7); MONOS% (MANUAL) 5 % (2-9)
[2019-08-09 08:22] LABS: ANISOCYTOSIS 1+; LYMPHS% (MANUAL) 19 % (22-44); POLYCHROMASIA 1+; SEG#(MANUAL) 9.32 x10^3/uL (1.8-6.8); SEGS% (MANUAL) 68 % (42-75)
[2019-08-09 08:24] LABS: <PLATELET ESTIMATE> ADEQUATE; <PLT MORPHOLOGY> NORMAL PLT MORPH
[2019-08-09] MEDS: LACTULOSE 10 GM/15 ML UDC PO SCH ×2 (09:30→20:45)
[2019-08-09] MEDS: FUROSEMIDE 40 MG/4 ML IV SCH ×2 (09:34→20:44)
[2019-08-09] MEDS: ONDANSETRON 2MG/ML, 2ML IVPush PRN (09:34)
[2019-08-09] MEDS: LACTULOSE 20 GM/30 ML UDC NG PRN (09:37)
[2019-08-09] MEDS: LACTOBACILLUS CHEW TABLET PO SCH ×3 (09:38→20:45)
[2019-08-09] MEDS: MIDODRINE 5 MG TABLET PO SCH ×3 (09:40→20:47)
[2019-08-09] MEDS: BUPROPION 100 MG TABLET PO SCH ×2 (09:42→20:46)
[2019-08-09] MEDS: SEVELAMER 2.4 GM POWD.PACK JT SCH ×3 (09:43→16:40)
[2019-08-09] MEDS: GLYCOPYRROLATE 1 MG TABLET JT SCH ×3 (09:43→20:46)
[2019-08-09] MEDS: INSULIN GLARGINE 100 UNITS/ML, PEN SQ-INSULIN SCH ×2 (09:49→21:05)
[2019-08-09] MEDS: METHYLNALTREXONE 12 MG/0.6 ML SYR SQ SCH (11:36)
[2019-08-09] MEDS: CEFTAZIDIME/AVIBACTAM 0.94 GM in SODIUM CHLORIDE 0.9% 50 ML IVPB SCH (18:40)
[2019-08-09] MEDS: MICAFUNGIN 100 MG in SODIUM CHLORIDE 0.9% 100 ML IV SCH (20:44)
[2019-08-10] MEDS: LORazepam 2 MG/ML, 1ML IVPush PRN ×2 (01:29→15:25)
[2019-08-10] MEDS: FENTANYL PF 100 MCG/2ML IVPush PRN ×4 (01:31→21:25)
[2019-08-10] MEDS: HEPARIN 5,000 UNITS/ML, 1ML SQ SCH ×3 (04:35→21:02)
[2019-08-10] MEDS: INSULIN LISPRO 100 UNITS/ML, PEN SQ-INSULIN SCH ×4 (04:35→21:11)
[2019-08-10 05:14] LABS: ANION GAP 10 mmol/L (5-15); CHLORIDE 99 mmol/L (98-107); CREATININE 1.82 mg/dL (0.7-1.3)
[2019-08-10] MEDS: METRONIDAZOLE PMX 500MG/100ML 100 ML IV SCH ×3 (05:29→22:29)
[2019-08-10 05:31] LABS: MEAN CORPUSCULAR HEMOGLOBIN 28.9 pg (27.5-34.5); MEAN CORPUSCULAR HGB CONC 32.9 g/dL (33.2-36.2); MEAN CORPUSCULAR VOLUME 87.9 fL (81-97); MEAN PLATELET VOLUME 7.4 fL (7.4-10.4); PLATELET COUNT 271 x10^3/uL (130-400); RED BLOOD COUNT 2.96 x10^6/uL (4.38-5.82); RED CELL DISTRIBUTION WIDTH 19.1 % (9.4-14.8)
[2019-08-10 05:50] LABS: MD YES
[2019-08-10 05:53] LABS: BAND#(MANUAL) 0.49 x10^3/uL; BANDS%(MANUAL) 4 % (0-7); EOS#(MANUAL) 0.49 x10^3/uL (0.0-0.4); EOS% (MANUAL) 4 % (1-7); LYMPH#(MANUAL) 2.34 x10^3/uL (1-3.4); LYMPHS% (MANUAL) 19 % (22-44); METAMYELOCYTES# (MANUAL) 0.37 x10^3/uL (0-0); METAMYELOCYTES% (MANUAL) 3 % (0-1); MONOS#(MANUAL) 0.74 x10^3/uL (0.3-2.7); MONOS% (MANUAL) 6 % (2-9); SEG#(MANUAL) 7.87 x10^3/uL (1.8-6.8); SEGS% (MANUAL) 64 % (42-75)
[2019-08-10 05:54] LABS: <PLATELET ESTIMATE> ADEQUATE; <PLT MORPHOLOGY> NORMAL PLT MORPH; ANISOCYTOSIS 1+; POLYCHROMASIA 1+
[2019-08-10] MEDS: ACETYLCYSTEINE 20%, 4ML NPPB SCH ×2 (07:00→11:00)
[2019-08-10 08:39] LABS: PREALBUMIN 22.9 mg/dL (20.0-40.0)
[2019-08-10] MEDS: FENTANYL 50 MCG PATCH TD SCH (09:40)
[2019-08-10] MEDS: SEVELAMER 2.4 GM POWD.PACK JT SCH ×3 (09:40→15:25)
[2019-08-10] MEDS: LACTOBACILLUS CHEW TABLET PO SCH ×3 (09:41→21:03)
[2019-08-10] MEDS: LACTULOSE 10 GM/15 ML UDC PO SCH ×2 (09:41→21:04)
[2019-08-10] MEDS: FUROSEMIDE 40 MG/4 ML IV SCH ×2 (09:41→21:03)
[2019-08-10] MEDS: GLYCOPYRROLATE 1 MG TABLET JT SCH ×3 (09:41→21:03)
[2019-08-10] MEDS: BUPROPION 100 MG TABLET PO SCH ×2 (09:42→21:04)
[2019-08-10] MEDS: MIDODRINE 5 MG TABLET PO SCH ×3 (09:42→21:00)
[2019-08-10] MEDS: INSULIN GLARGINE 100 UNITS/ML, PEN SQ-INSULIN SCH ×2 (10:01→21:10)
[2019-08-10] MEDS ORDERED: MIDAZOLAM 1 MG/ML, 5ML ONE (12:00)
[2019-08-10] MEDS: DAPTOMYCIN IV SCH (20:08)
[2019-08-10] MEDS: SODIUM CHLORIDE 0.9% IV SCH (20:08)
[2019-08-10] MEDS: MICAFUNGIN 100 MG in SODIUM CHLORIDE 0.9% 100 ML IV SCH (21:01)
[2019-08-10] MEDS: TRAZODONE 150MG TABLET PO PRN (22:42)
[2019-08-10] MEDS: OXYcodone 5 MG/5 ML ORAL.SOL UDC PO PRN (22:42)
[2019-08-11] MEDS: FENTANYL PF 100 MCG/2ML IVPush PRN ×4 (00:07→21:35)
[2019-08-11] MEDS: OXYcodone 5 MG/5 ML ORAL.SOL UDC PO PRN (03:25)
[2019-08-11] MEDS: INSULIN LISPRO 100 UNITS/ML, PEN SQ-INSULIN SCH ×5 (03:37→21:59)
[2019-08-11 04:38] LABS: ANION GAP 12 mmol/L (5-15); CALCIUM 9.9 mg/dL (8.5-10.1); CHLORIDE 97 mmol/L (98-107); CREATININE 2.34 mg/dL (0.7-1.3)
[2019-08-11 04:47] LABS: BASOPHILS # (AUTO) 0.05 x10^3/uL (0-0.1); BASOPHILS % (AUTO) 0 % (0-1); EOSINOPHILS # (AUTO) 0.35 x10^3/uL (0-0.4); EOSINOPHILS % (AUTO) 2 % (1-7); LYMPHOCYTES # (AUTO) 1.92 x10^3/uL (1-3.4); LYMPHOCYTES % (AUTO) 13 % (22-44); MD NO; MEAN CORPUSCULAR HEMOGLOBIN 29.5 pg (27.5-34.5); MEAN CORPUSCULAR HGB CONC 32.8 g/dL (33.2-36.2); MEAN PLATELET VOLUME 7.8 fL (7.4-10.4); MONOCYTES # (AUTO) 1.14 x10^3/uL (0.2-0.8); MONOCYTES % (AUTO) 8 % (2-9); NEUTROPHILS # (AUTO) 11.83 x10^3/uL (1.8-6.8); NEUTROPHILS % (AUTO) 77 % (42-75); PLATELET COUNT 311 x10^3/uL (130-400); RED BLOOD COUNT 3.08 x10^6/uL (4.38-5.82); RED CELL DISTRIBUTION WIDTH 19.1 % (9.4-14.8)
[2019-08-11] MEDS: METRONIDAZOLE PMX 500MG/100ML 100 ML IV SCH ×3 (05:59→22:02)
[2019-08-11 07:43] LABS: FIO2 40 %
[2019-08-11] MEDS: DAKIN'S SOLUTION 1/4 STRENGTH 1,000 ML IRRIG SOLN EXT SCH (08:00)
[2019-08-11] MEDS ORDERED: LACTULOSE 10 GM/15 ML UDC PO PRN (08:30)
[2019-08-11] MEDS: FENTANYL 75 MCG PATCH TD SCH (08:30)
[2019-08-11] MEDS ORDERED: FENTANYL 50 MCG PATCH ONE (08:57)
[2019-08-11] MEDS ORDERED: FENTANYL 25 MCG PATCH ONE (08:57)
[2019-08-11] MEDS: INSULIN GLARGINE 100 UNITS/ML, PEN SQ-INSULIN SCH ×2 (09:11→21:58)
[2019-08-11] MEDS: GLYCOPYRROLATE 1 MG TABLET JT SCH ×3 (09:12→21:33)
[2019-08-11] MEDS: BUPROPION 100 MG TABLET PO SCH ×2 (09:12→21:33)
[2019-08-11] MEDS: LACTOBACILLUS CHEW TABLET PO SCH ×3 (09:12→21:34)
[2019-08-11] MEDS: SEVELAMER 2.4 GM POWD.PACK JT SCH ×3 (09:13→16:55)
[2019-08-11] MEDS: FUROSEMIDE 40 MG/4 ML IV SCH ×2 (09:13→21:33)
[2019-08-11] MEDS: HEPARIN 5,000 UNITS/ML, 1ML SQ SCH ×2 (09:13→16:56)
[2019-08-11] MEDS: MIDODRINE 5 MG TABLET PO SCH ×3 (09:13→21:33)
[2019-08-11] MEDS: METHYLNALTREXONE 12 MG/0.6 ML SYR SQ SCH (12:12)
[2019-08-11] MEDS: CEFTAZIDIME/AVIBACTAM 0.94 GM in SODIUM CHLORIDE 0.9% 50 ML IVPB SCH (18:51)
[2019-08-11] MEDS: MICAFUNGIN 100 MG in SODIUM CHLORIDE 0.9% 100 ML IV SCH (20:33)
[2019-08-11] MEDS: TRAZODONE 150MG TABLET PO PRN (21:33)
[2019-08-11] MEDS: ACETYLCYSTEINE 600 MG CAPSULE PO SCH (21:33)
[2019-08-12] MEDS: HEPARIN 5,000 UNITS/ML, 1ML SQ SCH ×3 (00:30→15:27)
[2019-08-12] MEDS: FENTANYL PF 100 MCG/2ML IVPush PRN ×5 (00:31→16:48)
[2019-08-12] MEDS: ALBUTEROL SULFATE 2.5 MG/3 ML NPPB SCH ×3 (02:10→20:52)
[2019-08-12] MEDS: SODIUM CHLORIDE INHALATION 7%, 4 ML NPPB SCH ×3 (02:10→20:52)
[2019-08-12] MEDS: INSULIN LISPRO 100 UNITS/ML, PEN SQ-INSULIN SCH ×4 (04:26→21:28)
[2019-08-12 04:38] LABS: MEAN CORPUSCULAR HEMOGLOBIN 28.9 pg (27.5-34.5); MEAN CORPUSCULAR HGB CONC 32.8 g/dL (33.2-36.2); MEAN CORPUSCULAR VOLUME 88.1 fL (81-97); MEAN PLATELET VOLUME 7.5 fL (7.4-10.4); PLATELET COUNT 289 x10^3/uL (130-400); RED BLOOD COUNT 2.93 x10^6/uL (4.38-5.82); RED CELL DISTRIBUTION WIDTH 18.8 % (9.4-14.8)
[2019-08-12 04:42] LABS: CHLORIDE 98 mmol/L (98-107)
[2019-08-12 04:44] LABS: ANION GAP 7 mmol/L (5-15); CALCIUM 9.3 mg/dL (8.5-10.1); CREATININE 1.84 mg/dL (0.7-1.3)
[2019-08-12 04:58] LABS: BASOPHILS # (AUTO) 0.04 x10^3/uL (0-0.1); BASOPHILS % (AUTO) 0 % (0-1); EOSINOPHILS # (AUTO) 0.37 x10^3/uL (0-0.4); EOSINOPHILS % (AUTO) 3 % (1-7); LYMPHOCYTES # (AUTO) 2.05 x10^3/uL (1-3.4); LYMPHOCYTES % (AUTO) 14 % (22-44); MD SCAN; MONOCYTES # (AUTO) 1.24 x10^3/uL (0.2-0.8); MONOCYTES % (AUTO) 9 % (2-9); NEUTROPHILS # (AUTO) 10.79 x10^3/uL (1.8-6.8); NEUTROPHILS % (AUTO) 75 % (42-75)
[2019-08-12] MEDS: METRONIDAZOLE PMX 500MG/100ML 100 ML IV SCH ×3 (06:07→21:45)
[2019-08-12] MEDS: LACTOBACILLUS CHEW TABLET PO SCH ×3 (08:23→21:32)
[2019-08-12] MEDS: BUPROPION 100 MG TABLET PO SCH ×2 (08:23→21:31)
[2019-08-12] MEDS: FUROSEMIDE 40 MG/4 ML IV SCH ×2 (08:23→21:28)
[2019-08-12] MEDS: ACETYLCYSTEINE 600 MG CAPSULE PO SCH ×2 (08:23→21:31)
[2019-08-12] MEDS: SEVELAMER 2.4 GM POWD.PACK JT SCH ×3 (08:24→17:38)
[2019-08-12] MEDS: GLYCOPYRROLATE 1 MG TABLET JT SCH ×3 (08:24→21:31)
[2019-08-12] MEDS: MIDODRINE 5 MG TABLET PO SCH ×4 (08:25→21:31)
[2019-08-12] MEDS: DAKIN'S SOLUTION 1/4 STRENGTH 1,000 ML IRRIG SOLN EXT SCH (09:00)
[2019-08-12] MEDS: INSULIN GLARGINE 100 UNITS/ML, PEN SQ-INSULIN SCH ×2 (09:30→21:30)
[2019-08-12] MEDS ORDERED: METHADONE 5 MG TABLET ONE (09:45)
[2019-08-12] MEDS: METHADONE INTENSOL 10 MG/ML ORAL CONC JT SCH ×2 (09:52→21:32)
[2019-08-12] MEDS: SODIUM CHLORIDE 0.9% IV SCH (20:02)
[2019-08-12] MEDS: DAPTOMYCIN IV SCH (20:02)
[2019-08-12] MEDS: MICAFUNGIN 100 MG in SODIUM CHLORIDE 0.9% 100 ML IV SCH (21:28)
[2019-08-13] MEDS: HEPARIN 5,000 UNITS/ML, 1ML SQ SCH ×4 (00:13→23:10)
[2019-08-13] MEDS: FENTANYL PF 100 MCG/2ML IVPush PRN ×2 (00:14→03:52)
[2019-08-13] MEDS: SODIUM CHLORIDE INHALATION 7%, 4 ML NPPB SCH ×4 (02:51→21:00)
[2019-08-13] MEDS: ALBUTEROL SULFATE 2.5 MG/3 ML NPPB SCH ×4 (02:52→21:00)
[2019-08-13 04:00] LABS: ANION GAP 12 mmol/L (5-15); CALCIUM 9.8 mg/dL (8.5-10.1); CHLORIDE 95 mmol/L (98-107); CREATININE 2.11 mg/dL (0.7-1.3)
[2019-08-13 04:03] LABS: BASOPHILS # (AUTO) 0.04 x10^3/uL (0-0.1); BASOPHILS % (AUTO) 0 % (0-1); EOSINOPHILS # (AUTO) 0.43 x10^3/uL (0-0.4); EOSINOPHILS % (AUTO) 4 % (1-7); LYMPHOCYTES # (AUTO) 2.17 x10^3/uL (1-3.4); LYMPHOCYTES % (AUTO) 19 % (22-44); MD NO; MEAN CORPUSCULAR HEMOGLOBIN 29.8 pg (27.5-34.5); MEAN CORPUSCULAR HGB CONC 33.5 g/dL (33.2-36.2); MEAN CORPUSCULAR VOLUME 88.7 fL (81-97); MEAN PLATELET VOLUME 7.7 fL (7.4-10.4); MONOCYTES # (AUTO) 1.01 x10^3/uL (0.2-0.8); MONOCYTES % (AUTO) 9 % (2-9); NEUTROPHILS # (AUTO) 7.84 x10^3/uL (1.8-6.8); NEUTROPHILS % (AUTO) 68 % (42-75); PLATELET COUNT 280 x10^3/uL (130-400); RED BLOOD COUNT 2.74 x10^6/uL (4.38-5.82)
[2019-08-13] MEDS: METRONIDAZOLE PMX 500MG/100ML 100 ML IV SCH ×3 (06:23→22:08)
[2019-08-13] MEDS: INSULIN LISPRO 100 UNITS/ML, PEN SQ-INSULIN SCH ×4 (06:26→22:09)
[2019-08-13] MEDS ORDERED: FENTANYL PF 100 MCG/2ML IVPush PRN (08:30)
[2019-08-13] MEDS: METHYLNALTREXONE 12 MG/0.6 ML SYR SQ SCH (09:30)
[2019-08-13] MEDS: LACTOBACILLUS CHEW TABLET PO SCH ×3 (09:30→20:16)
[2019-08-13] MEDS: FUROSEMIDE 40 MG/4 ML IV SCH ×2 (09:31→20:15)
[2019-08-13] MEDS: GLYCOPYRROLATE 1 MG TABLET JT SCH ×3 (09:31→20:16)
[2019-08-13] MEDS: ACETYLCYSTEINE 600 MG CAPSULE PO SCH ×2 (09:31→20:15)
[2019-08-13] MEDS: BUPROPION 100 MG TABLET PO SCH ×2 (09:31→20:15)
[2019-08-13] MEDS: LACTULOSE 10 GM/15 ML UDC PO SCH ×2 (09:32→20:15)
[2019-08-13] MEDS: MIDODRINE 5 MG TABLET PO SCH ×3 (09:32→20:16)
[2019-08-13] MEDS: SEVELAMER 2.4 GM POWD.PACK JT SCH ×3 (09:32→17:30)
[2019-08-13] MEDS: METHADONE INTENSOL 10 MG/ML ORAL CONC JT SCH ×2 (09:33→20:16)
[2019-08-13] MEDS: INSULIN GLARGINE 100 UNITS/ML, PEN SQ-INSULIN SCH ×2 (09:35→22:09)
[2019-08-13] MEDS: SENNA/DOCUSATE TABLET NG SCH ×2 (14:00→20:16)
[2019-08-13] MEDS: HYDROmorphone 2 MG/ML, 1ML IVPush PRN ×2 (14:13→17:35)
[2019-08-13] MEDS: CEFTAZIDIME/AVIBACTAM 0.94 GM in SODIUM CHLORIDE 0.9% 50 ML IVPB SCH (17:51)
[2019-08-13] MEDS: MICAFUNGIN 100 MG in SODIUM CHLORIDE 0.9% 100 ML IV SCH (20:15)
[2019-08-13] MEDS: OXYcodone 5 MG/5 ML ORAL.SOL UDC PO PRN (23:12)
[2019-08-13] MEDS: TRAZODONE 150MG TABLET PO PRN (23:32)
[2019-08-14] MEDS: SODIUM CHLORIDE INHALATION 7%, 4 ML NPPB SCH ×4 (03:00→21:21)
[2019-08-14] MEDS: ALBUTEROL SULFATE 2.5 MG/3 ML NPPB SCH ×4 (03:00→21:21)
[2019-08-14] MEDS: OXYcodone 5 MG/5 ML ORAL.SOL UDC PO PRN (04:08)
[2019-08-14] MEDS: ONDANSETRON 2MG/ML, 2ML IVPush PRN (04:29)
[2019-08-14 04:30] LABS: BASOPHILS # (AUTO) 0.05 x10^3/uL (0-0.1); BASOPHILS % (AUTO) 0 % (0-1); EOSINOPHILS # (AUTO) 0.45 x10^3/uL (0-0.4); EOSINOPHILS % (AUTO) 3 % (1-7); LYMPHOCYTES # (AUTO) 1.71 x10^3/uL (1-3.4); LYMPHOCYTES % (AUTO) 13 % (22-44); MD NO; MEAN CORPUSCULAR HEMOGLOBIN 29.8 pg (27.5-34.5); MEAN CORPUSCULAR HGB CONC 33.4 g/dL (33.2-36.2); MEAN CORPUSCULAR VOLUME 89.2 fL (81-97); MEAN PLATELET VOLUME 7.6 fL (7.4-10.4); MONOCYTES # (AUTO) 0.83 x10^3/uL (0.2-0.8); MONOCYTES % (AUTO) 6 % (2-9); NEUTROPHILS # (AUTO) 10.47 x10^3/uL (1.8-6.8); NEUTROPHILS % (AUTO) 78 % (42-75); PLATELET COUNT 275 x10^3/uL (130-400); RED BLOOD COUNT 2.79 x10^6/uL (4.38-5.82); RED CELL DISTRIBUTION WIDTH 19.5 % (9.4-14.8)
[2019-08-14 04:41] LABS: ANION GAP 16 mmol/L (5-15); CALCIUM 9.7 mg/dL (8.5-10.1); CHLORIDE 93 mmol/L (98-107); CREATININE 2.03 mg/dL (0.7-1.3)
[2019-08-14] MEDS: INSULIN LISPRO 100 UNITS/ML, PEN SQ-INSULIN SCH ×4 (05:17→22:27)
[2019-08-14] MEDS: METRONIDAZOLE PMX 500MG/100ML 100 ML IV SCH (05:18)
[2019-08-14 08:59] LABS: HCT (SEDRATE) 24.9 % (39.2-51.8)
[2019-08-14] MEDS: MIDODRINE 5 MG TABLET PO SCH ×4 (09:00→20:45)
[2019-08-14] MEDS: ERTAPENEM 0.5 GM in SODIUM CHLORIDE 0.9% 50 ML IV SCH (09:04)
[2019-08-14] MEDS: BUPROPION 100 MG TABLET PO SCH ×2 (09:05→20:45)
[2019-08-14] MEDS: HEPARIN 5,000 UNITS/ML, 1ML SQ SCH ×3 (09:05→23:01)
[2019-08-14] MEDS: SEVELAMER 2.4 GM POWD.PACK JT SCH ×3 (09:05→16:04)
[2019-08-14] MEDS: FUROSEMIDE 40 MG/4 ML IV SCH ×2 (09:06→20:44)
[2019-08-14] MEDS: OXYcodone 5 MG/5 ML ORAL.SOL UDC PO SCH ×3 (09:06→20:45)
[2019-08-14] MEDS: SENNA/DOCUSATE TABLET NG SCH ×2 (09:07→20:45)
[2019-08-14] MEDS: LACTOBACILLUS CHEW TABLET PO SCH ×3 (09:08→20:45)
[2019-08-14] MEDS: LACTULOSE 10 GM/15 ML UDC PO SCH ×2 (09:13→20:45)
[2019-08-14] MEDS: INSULIN GLARGINE 100 UNITS/ML, PEN SQ-INSULIN SCH ×2 (09:14→22:26)
[2019-08-14] MEDS: DAKIN'S SOLUTION 1/4 STRENGTH 1,000 ML IRRIG SOLN EXT SCH ×2 (09:15→11:00)
[2019-08-14] MEDS: GLYCOPYRROLATE 1 MG TABLET JT SCH ×3 (09:28→20:45)
[2019-08-14 10:05] LABS: C-REACTIVE PROTEIN, QUANT 4.6 mg/dL (0.02-0.49)
[2019-08-14] MEDS: HYDROmorphone 2 MG/ML, 1ML IVPush PRN ×3 (10:55→23:01)
[2019-08-14] MEDS: FENTANYL 75 MCG PATCH TD SCH (10:55)
[2019-08-14] MEDS: ACETYLCYSTEINE 600 MG CAPSULE PO SCH ×2 (10:55→20:45)
[2019-08-14] MEDS: ALBUMIN HUMAN 25% 100 ML IV PRN (15:26)
[2019-08-14] MEDS: DAPTOMYCIN IV SCH (18:54)
[2019-08-14] MEDS: SODIUM CHLORIDE 0.9% IV SCH (18:54)
[2019-08-14] MEDS: MICAFUNGIN 100 MG in SODIUM CHLORIDE 0.9% 100 ML IV SCH (20:44)
[2019-08-14] MEDS: TRAZODONE 150MG TABLET PO PRN (23:02)
[2019-08-15] MEDS: ALBUTEROL SULFATE 2.5 MG/3 ML NPPB SCH ×4 (02:17→19:59)
[2019-08-15] MEDS: SODIUM CHLORIDE INHALATION 7%, 4 ML NPPB SCH ×4 (02:17→19:59)
[2019-08-15] MEDS: OXYcodone 5 MG/5 ML ORAL.SOL UDC PO SCH ×4 (04:22→21:06)
[2019-08-15] MEDS: HYDROmorphone 2 MG/ML, 1ML IVPush PRN ×5 (04:43→20:33)
[2019-08-15] MEDS: ONDANSETRON 2MG/ML, 2ML IVPush PRN ×2 (04:54→20:37)
[2019-08-15 05:02] LABS: ANION GAP 10 mmol/L (5-15); CALCIUM 9.2 mg/dL (8.5-10.1); CHLORIDE 98 mmol/L (98-107); CREATININE 1.39 mg/dL (0.7-1.3)
[2019-08-15 05:08] LABS: BASOPHILS # (AUTO) 0.04 x10^3/uL (0-0.1); BASOPHILS % (AUTO) 0 % (0-1); EOSINOPHILS # (AUTO) 0.38 x10^3/uL (0-0.4); EOSINOPHILS % (AUTO) 4 % (1-7); LYMPHOCYTES # (AUTO) 1.26 x10^3/uL (1-3.4); LYMPHOCYTES % (AUTO) 13 % (22-44); MD NO; MEAN CORPUSCULAR HEMOGLOBIN 29.5 pg (27.5-34.5); MEAN CORPUSCULAR HGB CONC 33.1 g/dL (33.2-36.2); MEAN CORPUSCULAR VOLUME 89.2 fL (81-97); MEAN PLATELET VOLUME 7.5 fL (7.4-10.4); MONOCYTES # (AUTO) 0.81 x10^3/uL (0.2-0.8); MONOCYTES % (AUTO) 8 % (2-9); NEUTROPHILS # (AUTO) 7.18 x10^3/uL (1.8-6.8); NEUTROPHILS % (AUTO) 74 % (42-75); PLATELET COUNT 250 x10^3/uL (130-400); RED BLOOD COUNT 2.66 x10^6/uL (4.38-5.82); RED CELL DISTRIBUTION WIDTH 19.3 % (9.4-14.8)
[2019-08-15] MEDS: INSULIN LISPRO 100 UNITS/ML, PEN SQ-INSULIN SCH ×4 (05:32→22:25)
[2019-08-15] MEDS ORDERED: POLYETHYLENE GLYCOL 17 GM PACKET PO SCH (09:00)
[2019-08-15] MEDS ORDERED: SENNA/DOCUSATE TABLET NG SCH (09:00)
[2019-08-15] MEDS: ERTAPENEM 0.5 GM in SODIUM CHLORIDE 0.9% 50 ML IV SCH (09:23)
[2019-08-15] MEDS: METHYLNALTREXONE 12 MG/0.6 ML SYR SQ SCH (09:23)
[2019-08-15] MEDS: HEPARIN 5,000 UNITS/ML, 1ML SQ SCH ×3 (09:23→23:48)
[2019-08-15] MEDS: ACETYLCYSTEINE 600 MG CAPSULE PO SCH ×2 (09:25→21:06)
[2019-08-15] MEDS: FUROSEMIDE 40 MG/4 ML IV SCH ×2 (09:25→21:05)
[2019-08-15] MEDS: SEVELAMER 2.4 GM POWD.PACK JT SCH ×3 (09:25→16:30)
[2019-08-15] MEDS: LACTOBACILLUS CHEW TABLET PO SCH ×3 (09:25→21:06)
[2019-08-15] MEDS: GLYCOPYRROLATE 1 MG TABLET JT SCH ×3 (09:26→21:07)
[2019-08-15] MEDS: MIDODRINE 5 MG TABLET PO SCH ×3 (09:26→21:06)
[2019-08-15] MEDS: BUPROPION 100 MG TABLET PO SCH ×2 (09:26→21:07)
[2019-08-15] MEDS: LACTULOSE 20 GM/30 ML UDC PO SCH ×2 (09:47→21:07)
[2019-08-15] MEDS: INSULIN GLARGINE 100 UNITS/ML, PEN SQ-INSULIN SCH ×2 (09:48→22:25)
[2019-08-15] MEDS: MICAFUNGIN 100 MG in SODIUM CHLORIDE 0.9% 100 ML IV SCH (20:32)
[2019-08-15] MEDS: DOCUSATE 50 MG/5 ML ORAL SOL PO SCH (21:06)
[2019-08-15] MEDS: SENNA 176 MG/5 ML ORAL SOL PO SCH (21:07)
[2019-08-15] MEDS: TRAZODONE 100MG TABLET PO PRN (23:48)
[2019-08-16] MEDS: ALBUTEROL SULFATE 2.5 MG/3 ML NPPB SCH (02:29)
[2019-08-16] MEDS: SODIUM CHLORIDE INHALATION 7%, 4 ML NPPB SCH (02:29)
[2019-08-16] MEDS: OXYcodone 5 MG/5 ML ORAL.SOL UDC PO SCH ×4 (02:54→22:56)
[2019-08-16] MEDS: HYDROmorphone 2 MG/ML, 1ML IVPush PRN (02:55)
[2019-08-16] MEDS: INSULIN LISPRO 100 UNITS/ML, PEN SQ-INSULIN SCH ×4 (05:00→22:57)
[2019-08-16 05:03] LABS: MEAN CORPUSCULAR HGB CONC 33.4 g/dL (33.2-36.2); MEAN CORPUSCULAR VOLUME 89.8 fL (81-97); PLATELET COUNT 291 x10^3/uL (130-400); RED BLOOD COUNT 2.54 x10^6/uL (4.38-5.82); RED CELL DISTRIBUTION WIDTH 19.1 % (9.4-14.8)
[2019-08-16 05:05] LABS: ANION GAP 11 mmol/L (5-15); CALCIUM 9.6 mg/dL (8.5-10.1); CHLORIDE 96 mmol/L (98-107); CREATININE 1.87 mg/dL (0.7-1.3)
[2019-08-16 05:23] LABS: BASOPHILS # (AUTO) 0.05 x10^3/uL (0-0.1); BASOPHILS % (AUTO) 0 % (0-1); EOSINOPHILS # (AUTO) 0.52 x10^3/uL (0-0.4); EOSINOPHILS % (AUTO) 5 % (1-7); LYMPHOCYTES # (AUTO) 1.31 x10^3/uL (1-3.4); LYMPHOCYTES % (AUTO) 13 % (22-44); MD SCAN; MONOCYTES # (AUTO) 0.94 x10^3/uL (0.2-0.8); MONOCYTES % (AUTO) 9 % (2-9); NEUTROPHILS # (AUTO) 7.51 x10^3/uL (1.8-6.8); NEUTROPHILS % (AUTO) 73 % (42-75)
[2019-08-16] MEDS ORDERED: ERGOCALCIFEROL 8,000UNIT/ML NG SCH (08:30)
[2019-08-16] MEDS: DOCUSATE 50 MG/5 ML ORAL SOL PO SCH ×2 (09:00→21:00)
[2019-08-16] MEDS: DAKIN'S SOLUTION 1/4 STRENGTH 1,000 ML IRRIG SOLN EXT SCH (09:00)
[2019-08-16] MEDS: HEPARIN 5,000 UNITS/ML, 1ML SQ SCH ×3 (09:23→22:57)
[2019-08-16] MEDS: METHYLNALTREXONE 12 MG/0.6 ML SYR SQ SCH (09:23)
[2019-08-16] MEDS: INSULIN GLARGINE 100 UNITS/ML, PEN SQ-INSULIN SCH ×3 (09:25→21:28)
[2019-08-16] MEDS: LACTOBACILLUS CHEW TABLET PO SCH ×3 (09:26→21:16)
[2019-08-16] MEDS: ACETYLCYSTEINE 600 MG CAPSULE PO SCH ×2 (09:26→21:18)
[2019-08-16] MEDS: BUPROPION 100 MG TABLET PO SCH ×2 (09:26→21:20)
[2019-08-16] MEDS: GLYCOPYRROLATE 1 MG TABLET JT SCH ×3 (09:26→21:14)
[2019-08-16] MEDS: MIDODRINE 5 MG TABLET PO SCH ×3 (09:26→21:00)
[2019-08-16] MEDS: LACTULOSE 20 GM/30 ML UDC PO SCH ×2 (09:27→21:00)
[2019-08-16] MEDS: SENNA 176 MG/5 ML ORAL SOL PO SCH ×2 (09:27→21:00)
[2019-08-16] MEDS: FUROSEMIDE 40 MG/4 ML IV SCH ×2 (09:27→21:12)
[2019-08-16] MEDS: SEVELAMER 2.4 GM POWD.PACK JT SCH ×3 (09:27→17:03)
[2019-08-16] MEDS ORDERED: SODIUM CHLORIDE INHALATION 7%, 4 ML NPPB PRN (10:00)
[2019-08-16] MEDS ORDERED: ALBUTEROL SULFATE 2.5 MG/3 ML NPPB PRN (10:00)
[2019-08-16] MEDS: FENTANYL 100 MCG PATCH TD SCH (11:00)
[2019-08-16] MEDS: ERTAPENEM 0.5 GM in SODIUM CHLORIDE 0.9% 50 ML IV SCH (11:09)
[2019-08-16] MEDS: ONDANSETRON 2MG/ML, 2ML IVPush PRN (11:12)
[2019-08-16] MEDS: DARBEPOETIN 100 MCG/ML SQ SCH (12:32)
[2019-08-16 17:04] VITALS: BP 121/70
[2019-08-16] MEDS: OXYcodone 5 MG/5 ML ORAL.SOL UDC PO PRN (18:27)
[2019-08-16] MEDS: MICAFUNGIN 100 MG in SODIUM CHLORIDE 0.9% 100 ML IV SCH (20:07)
[2019-08-16] MEDS: SODIUM CHLORIDE 0.9% IV SCH (21:10)
[2019-08-16] MEDS: DAPTOMYCIN IV SCH (21:10)
[2019-08-17] MEDS: HYDROmorphone 2 MG/ML, 1ML IVPush PRN ×3 (01:09→22:59)
[2019-08-17] MEDS: TRAZODONE 100MG TABLET PO PRN (01:35)
[2019-08-17] MEDS: OXYcodone 5 MG/5 ML ORAL.SOL UDC PO SCH ×4 (04:43→22:58)
[2019-08-17] MEDS: INSULIN LISPRO 100 UNITS/ML, PEN SQ-INSULIN SCH ×4 (05:00→23:00)
[2019-08-17 05:09] LABS: MEAN CORPUSCULAR HEMOGLOBIN 29.9 pg (27.5-34.5); MEAN CORPUSCULAR HGB CONC 33.4 g/dL (33.2-36.2); MEAN CORPUSCULAR VOLUME 89.6 fL (81-97); MEAN PLATELET VOLUME 7.8 fL (7.4-10.4); PLATELET COUNT 287 x10^3/uL (130-400); RED BLOOD COUNT 2.51 x10^6/uL (4.38-5.82); RED CELL DISTRIBUTION WIDTH 19.1 % (9.4-14.8)
[2019-08-17 05:17] LABS: ANION GAP 8 mmol/L (5-15); CALCIUM 9.6 mg/dL (8.5-10.1); CHLORIDE 97 mmol/L (98-107); CREATININE 1.32 mg/dL (0.7-1.3)
[2019-08-17 05:42] LABS: BASOPHILS # (AUTO) 0.03 x10^3/uL (0-0.1); BASOPHILS % (AUTO) 0 % (0-1); EOSINOPHILS # (AUTO) 0.46 x10^3/uL (0-0.4); EOSINOPHILS % (AUTO) 5 % (1-7); LYMPHOCYTES # (AUTO) 1.43 x10^3/uL (1-3.4); LYMPHOCYTES % (AUTO) 15 % (22-44); MONOCYTES % (AUTO) 8 % (2-9); NEUTROPHILS % (AUTO) 72 % (42-75)
[2019-08-17 05:43] LABS: MD SCAN
[2019-08-17] MEDS: ERTAPENEM 0.5 GM in SODIUM CHLORIDE 0.9% 50 ML IV SCH (07:54)
[2019-08-17] MEDS: HEPARIN 5,000 UNITS/ML, 1ML SQ SCH ×2 (08:48→16:12)
[2019-08-17] MEDS: METHYLNALTREXONE 12 MG/0.6 ML SYR SQ SCH (08:48)
[2019-08-17] MEDS: SEVELAMER 2.4 GM POWD.PACK JT SCH ×3 (08:48→16:04)
[2019-08-17] MEDS: FUROSEMIDE 40 MG/4 ML IV SCH ×2 (08:49→22:20)
[2019-08-17] MEDS: GLYCOPYRROLATE 1 MG TABLET JT SCH ×3 (08:50→22:21)
[2019-08-17] MEDS: LACTOBACILLUS CHEW TABLET PO SCH ×3 (08:50→22:20)
[2019-08-17] MEDS: DOCUSATE 50 MG/5 ML, 10ML UDC PO SCH ×2 (08:50→22:20)
[2019-08-17] MEDS: LACTULOSE 20 GM/30 ML UDC PO SCH ×2 (08:50→22:57)
[2019-08-17] MEDS: BUPROPION 100 MG TABLET PO SCH ×2 (08:50→22:20)
[2019-08-17] MEDS: ACETYLCYSTEINE 600 MG CAPSULE PO SCH ×2 (08:50→22:20)
[2019-08-17] MEDS: MIDODRINE 5 MG TABLET PO SCH ×3 (08:51→22:57)
[2019-08-17] MEDS: SENNA 176 MG/5 ML ORAL SOL PO SCH ×2 (08:52→22:22)
[2019-08-17] MEDS: ONDANSETRON 2MG/ML, 2ML IVPush PRN ×2 (08:53→22:36)
[2019-08-17] MEDS: INSULIN GLARGINE 100 UNITS/ML, PEN SQ-INSULIN SCH ×2 (10:19→22:24)
[2019-08-17] MEDS: MAGNESIUM OXIDE 400 MG TABLET PO SCH (10:47)
[2019-08-17] MEDS: LORazepam 2 MG/ML, 1ML IVPush PRN (11:25)
[2019-08-17] MEDS: ALBUTEROL SULFATE 2.5 MG/3 ML NPPB SCH ×3 (14:37→22:45)
[2019-08-17] MEDS: OXYcodone 5 MG/5 ML ORAL.SOL UDC PO PRN (16:06)
[2019-08-17] MEDS: MICAFUNGIN 100 MG in SODIUM CHLORIDE 0.9% 100 ML IV SCH (22:19)
[2019-08-18] MEDS: HEPARIN 5,000 UNITS/ML, 1ML SQ SCH ×4 (00:57→21:42)
[2019-08-18] MEDS: ALBUTEROL SULFATE 2.5 MG/3 ML NPPB PRN (02:00)
[2019-08-18] MEDS: INSULIN LISPRO 100 UNITS/ML, PEN SQ-INSULIN SCH ×4 (05:00→22:20)
[2019-08-18 05:10] LABS: BASOPHILS # (AUTO) 0.08 x10^3/uL (0-0.1); BASOPHILS % (AUTO) 1 % (0-1); EOSINOPHILS # (AUTO) 0.54 x10^3/uL (0-0.4); EOSINOPHILS % (AUTO) 5 % (1-7); LYMPHOCYTES # (AUTO) 1.69 x10^3/uL (1-3.4); LYMPHOCYTES % (AUTO) 15 % (22-44); MD NO; MEAN CORPUSCULAR HEMOGLOBIN 29.5 pg (27.5-34.5); MEAN CORPUSCULAR HGB CONC 33.4 g/dL (33.2-36.2); MEAN CORPUSCULAR VOLUME 88.4 fL (81-97); MEAN PLATELET VOLUME 7.5 fL (7.4-10.4); MONOCYTES % (AUTO) 9 % (2-9); NEUTROPHILS % (AUTO) 70 % (42-75); PLATELET COUNT 342 x10^3/uL (130-400)
[2019-08-18 05:12] LABS: ANION GAP 9 mmol/L (5-15); CALCIUM 10.4 mg/dL (8.5-10.1); CHLORIDE 97 mmol/L (98-107); CREATININE 1.73 mg/dL (0.7-1.3)
[2019-08-18] MEDS: OXYcodone 5 MG/5 ML ORAL.SOL UDC PO SCH ×4 (05:41→22:27)
[2019-08-18] MEDS: ALBUTEROL SULFATE 2.5 MG/3 ML NPPB SCH ×3 (06:59→13:37)
[2019-08-18] MEDS: ERTAPENEM 0.5 GM in SODIUM CHLORIDE 0.9% 50 ML IV SCH (09:31)
[2019-08-18] MEDS: INSULIN GLARGINE 100 UNITS/ML, PEN SQ-INSULIN SCH ×3 (09:39→21:52)
[2019-08-18] MEDS: DOCUSATE 50 MG/5 ML, 10ML UDC PO SCH ×2 (09:41→21:43)
[2019-08-18] MEDS: MIDODRINE 5 MG TABLET PO SCH ×3 (09:46→21:42)
[2019-08-18] MEDS: LACTOBACILLUS CHEW TABLET PO SCH ×3 (09:46→21:43)
[2019-08-18] MEDS: ACETYLCYSTEINE 600 MG CAPSULE PO SCH ×2 (09:51→21:43)
[2019-08-18] MEDS: GLYCOPYRROLATE 1 MG TABLET JT SCH ×3 (09:51→21:43)
[2019-08-18] MEDS: BUPROPION 100 MG TABLET PO SCH ×2 (09:53→21:43)
[2019-08-18] MEDS: MAGNESIUM OXIDE 400 MG TABLET PO SCH (09:55)
[2019-08-18] MEDS: SENNA 176 MG/5 ML ORAL SOL PO SCH ×2 (09:59→21:51)
[2019-08-18] MEDS: SEVELAMER 2.4 GM POWD.PACK JT SCH ×3 (10:02→16:48)
[2019-08-18] MEDS: METHYLNALTREXONE 12 MG/0.6 ML SYR SQ SCH (10:02)
[2019-08-18] MEDS: LACTULOSE 20 GM/30 ML UDC PO SCH ×2 (10:03→21:43)
[2019-08-18] MEDS: DAKIN'S SOLUTION 1/4 STRENGTH 1,000 ML IRRIG SOLN EXT SCH (10:03)
[2019-08-18] MEDS: FUROSEMIDE 40 MG/4 ML IV SCH ×2 (10:08→21:38)
[2019-08-18] MEDS: METOCLOPRAMIDE 5 MG/ML, 2ML IVPush SCH ×3 (10:30→22:27)
[2019-08-18] MEDS ORDERED: INSULIN GLARGINE 100 UNITS/ML, PEN SQ-INSULIN SCH (10:30)
[2019-08-18] MEDS: LORazepam 2 MG/ML, 1ML IVPush PRN (11:16)
[2019-08-18] MEDS ORDERED: MIDAZOLAM 1 MG/ML, 5ML ONE (12:42)
[2019-08-18] MEDS ORDERED: FENTANYL PF 100 MCG/2ML ONE (12:42)
[2019-08-18] MEDS ORDERED: VECURONIUM 10 MG ONE (13:42)
[2019-08-18] MEDS ORDERED: PROPOFOL 100 ML IV ONE (13:51)
[2019-08-18] MEDS ORDERED: FENTANYL PF 100 MCG/2ML IVPush ONE (14:00)
[2019-08-18] MEDS ORDERED: MIDAZOLAM 1 MG/ML, 5ML IVPush ONE (14:00)
[2019-08-18] MEDS ORDERED: VECURONIUM 10 MG IVPush ONE (14:00)
[2019-08-18] MEDS: PROPOFOL 100 ML IV PRN ×3 (14:10→23:08)
[2019-08-18] MEDS ORDERED: PROPOFOL 100 ML IV PRN (14:11)
[2019-08-18] MEDS ORDERED: LIDOCAINE-MPF 1%, 2ML ENDO PRN (14:30)
[2019-08-18] MEDS: ALBUMIN HUMAN 25% 100 ML IV PRN (15:10)
[2019-08-18] MEDS: DAPTOMYCIN IV SCH (20:05)
[2019-08-18] MEDS: SODIUM CHLORIDE 0.9% IV SCH (20:05)
[2019-08-18] MEDS: HYDROmorphone 2 MG/ML, 1ML IVPush PRN (20:17)
[2019-08-18] MEDS: MICAFUNGIN 100 MG in SODIUM CHLORIDE 0.9% 100 ML IV SCH (21:38)
[2019-08-18] MEDS: TRAZODONE 100MG TABLET PO PRN (23:14)
[2019-08-19] MEDS: METOCLOPRAMIDE 5 MG/ML, 2ML IVPush SCH ×4 (04:11→22:55)
[2019-08-19] MEDS: PROPOFOL 100 ML IV PRN (04:12)
[2019-08-19] MEDS: ONDANSETRON 2MG/ML, 2ML IVPush PRN ×3 (04:39→21:24)
[2019-08-19] MEDS: HYDROmorphone 2 MG/ML, 1ML IVPush PRN ×4 (04:40→22:54)
[2019-08-19 04:43] LABS: MEAN CORPUSCULAR HEMOGLOBIN 30.1 pg (27.5-34.5); MEAN CORPUSCULAR HGB CONC 33.9 g/dL (33.2-36.2); MEAN CORPUSCULAR VOLUME 88.9 fL (81-97); MEAN PLATELET VOLUME 7.3 fL (7.4-10.4); PLATELET COUNT 329 x10^3/uL (130-400); RED BLOOD COUNT 2.51 x10^6/uL (4.38-5.82); RED CELL DISTRIBUTION WIDTH 18.7 % (9.4-14.8)
[2019-08-19 04:49] LABS: ALBUMIN 3.1 g/dL (3.4-5.0); ANION GAP 9 mmol/L (5-15); CALCIUM 10.2 mg/dL (8.5-10.1); CHLORIDE 100 mmol/L (98-107)
[2019-08-19 04:53] LABS: ALANINE AMINOTRANSFERASE 60 U/L (12-78); ALKALINE PHOSPHATASE 186 U/L (45-117); BILIRUBIN,TOTAL 0.4 mg/dL (0.2-1.0); CREATININE 1.33 mg/dL (0.7-1.3); TOTAL PROTEIN 7.2 g/dL (6.4-8.2)
[2019-08-19] MEDS: INSULIN LISPRO 100 UNITS/ML, PEN SQ-INSULIN SCH ×4 (05:00→23:00)
[2019-08-19 05:08] LABS: BASOPHILS # (AUTO) 0.03 x10^3/uL (0-0.1); BASOPHILS % (AUTO) 0 % (0-1); EOSINOPHILS # (AUTO) 0.61 x10^3/uL (0-0.4); EOSINOPHILS % (AUTO) 7 % (1-7); LYMPHOCYTES # (AUTO) 1.67 x10^3/uL (1-3.4); LYMPHOCYTES % (AUTO) 19 % (22-44); MD SCAN; MONOCYTES # (AUTO) 0.79 x10^3/uL (0.2-0.8); MONOCYTES % (AUTO) 9 % (2-9); NEUTROPHILS # (AUTO) 5.65 x10^3/uL (1.8-6.8); NEUTROPHILS % (AUTO) 65 % (42-75)
[2019-08-19] MEDS: OXYcodone 5 MG/5 ML ORAL.SOL UDC PO SCH ×4 (05:20→22:52)
[2019-08-19] MEDS: ALBUTEROL SULFATE 2.5 MG/3 ML NPPB SCH (07:10)
[2019-08-19] MEDS: ERTAPENEM 0.5 GM in SODIUM CHLORIDE 0.9% 50 ML IV SCH (07:22)
[2019-08-19] MEDS: METHYLNALTREXONE 12 MG/0.6 ML SYR SQ SCH (08:37)
[2019-08-19] MEDS: SENNA 176 MG/5 ML ORAL SOL PO SCH ×2 (08:37→21:26)
[2019-08-19] MEDS: FUROSEMIDE 40 MG/4 ML IV SCH ×2 (08:37→21:25)
[2019-08-19] MEDS: LACTULOSE 20 GM/30 ML UDC PO SCH ×2 (08:38→21:26)
[2019-08-19] MEDS: HEPARIN 5,000 UNITS/ML, 1ML SQ SCH ×3 (08:38→22:59)
[2019-08-19] MEDS: SEVELAMER 2.4 GM POWD.PACK JT SCH ×3 (08:38→16:37)
[2019-08-19] MEDS: MIDODRINE 5 MG TABLET PO SCH ×3 (08:38→21:27)
[2019-08-19] MEDS: MAGNESIUM OXIDE 400 MG TABLET PO SCH (08:38)
[2019-08-19] MEDS: LACTOBACILLUS CHEW TABLET PO SCH ×3 (08:38→21:27)
[2019-08-19] MEDS: BUPROPION 100 MG TABLET PO SCH ×2 (08:38→21:26)
[2019-08-19] MEDS: DOCUSATE 50 MG/5 ML, 10ML UDC PO SCH ×2 (08:38→21:25)
[2019-08-19] MEDS: ACETYLCYSTEINE 600 MG CAPSULE PO SCH ×2 (08:39→21:27)
[2019-08-19] MEDS: GLYCOPYRROLATE 1 MG TABLET JT SCH ×3 (08:39→21:27)
[2019-08-19] MEDS: INSULIN GLARGINE 100 UNITS/ML, PEN SQ-INSULIN SCH (09:00)
[2019-08-19] MEDS: LORazepam 2 MG/ML, 1ML IVPush PRN ×2 (10:02→22:56)
[2019-08-19] MEDS: FENTANYL 100 MCG PATCH TD SCH (11:14)
[2019-08-19] MEDS: ALBUTEROL SULFATE 2.5 MG/3 ML NPPB PRN (21:19)
[2019-08-19] MEDS: MICAFUNGIN 100 MG in SODIUM CHLORIDE 0.9% 100 ML IV SCH (21:31)
[2019-08-20] MEDS: TRAZODONE 100MG TABLET PO PRN ×2 (00:41→21:12)
[2019-08-20] MEDS: LORazepam 2 MG/ML, 1ML IVPush PRN (02:04)
[2019-08-20] MEDS: HYDROmorphone 2 MG/ML, 1ML IVPush PRN ×2 (02:04→13:59)
[2019-08-20 03:20] LABS: BASOPHILS # (AUTO) 0.05 x10^3/uL (0-0.1); BASOPHILS % (AUTO) 1 % (0-1); EOSINOPHILS # (AUTO) 0.59 x10^3/uL (0-0.4); EOSINOPHILS % (AUTO) 6 % (1-7); LYMPHOCYTES # (AUTO) 1.49 x10^3/uL (1-3.4); LYMPHOCYTES % (AUTO) 16 % (22-44); MD NO; MEAN CORPUSCULAR HEMOGLOBIN 28.8 pg (27.5-34.5); MEAN CORPUSCULAR HGB CONC 32.5 g/dL (33.2-36.2); MEAN CORPUSCULAR VOLUME 88.7 fL (81-97); MEAN PLATELET VOLUME 7.2 fL (7.4-10.4); MONOCYTES # (AUTO) 0.89 x10^3/uL (0.2-0.8); MONOCYTES % (AUTO) 9 % (2-9); NEUTROPHILS # (AUTO) 6.56 x10^3/uL (1.8-6.8); NEUTROPHILS % (AUTO) 69 % (42-75); PLATELET COUNT 366 x10^3/uL (130-400); RED BLOOD COUNT 2.63 x10^6/uL (4.38-5.82); RED CELL DISTRIBUTION WIDTH 18.4 % (9.4-14.8)
[2019-08-20 03:24] LABS: ALBUMIN 2.8 g/dL (3.4-5.0); ANION GAP 11 mmol/L (5-15); CALCIUM 10.5 mg/dL (8.5-10.1); CHLORIDE 99 mmol/L (98-107); CREATININE 1.97 mg/dL (0.7-1.3)
[2019-08-20] MEDS: INSULIN LISPRO 100 UNITS/ML, PEN SQ-INSULIN SCH ×4 (03:37→22:09)
[2019-08-20] MEDS: METOCLOPRAMIDE 5 MG/ML, 2ML IVPush SCH (04:56)
[2019-08-20] MEDS: OXYcodone 5 MG/5 ML ORAL.SOL UDC PO SCH (04:57)
[2019-08-20] MEDS: ERTAPENEM 0.5 GM in SODIUM CHLORIDE 0.9% 50 ML IV SCH (07:51)
[2019-08-20] MEDS: HEPARIN 5,000 UNITS/ML, 1ML SQ SCH ×2 (08:48→17:53)
[2019-08-20] MEDS: METHYLNALTREXONE 12 MG/0.6 ML SYR SQ SCH (08:48)
[2019-08-20] MEDS: SEVELAMER 2.4 GM POWD.PACK JT SCH ×3 (08:48→17:54)
[2019-08-20] MEDS: DOCUSATE 50 MG/5 ML, 10ML UDC PO SCH ×2 (08:49→20:33)
[2019-08-20] MEDS: ACETYLCYSTEINE 600 MG CAPSULE PO SCH (08:49)
[2019-08-20] MEDS: MAGNESIUM OXIDE 400 MG TABLET PO SCH (08:49)
[2019-08-20] MEDS: FUROSEMIDE 40 MG/4 ML IV SCH ×2 (08:49→20:34)
[2019-08-20] MEDS: LACTOBACILLUS CHEW TABLET PO SCH ×3 (08:49→20:33)
[2019-08-20] MEDS: LACTULOSE 20 GM/30 ML UDC PO SCH ×2 (08:49→21:11)
[2019-08-20] MEDS: MIDODRINE 5 MG TABLET PO SCH ×3 (08:49→21:12)
[2019-08-20] MEDS: GLYCOPYRROLATE 1 MG TABLET JT SCH ×3 (08:50→20:33)
[2019-08-20] MEDS: BUPROPION 100 MG TABLET PO SCH ×2 (08:50→20:33)
[2019-08-20] MEDS: SENNA 176 MG/5 ML ORAL SOL PO SCH ×2 (08:51→20:33)
[2019-08-20] MEDS: DAKIN'S SOLUTION 1/4 STRENGTH 1,000 ML IRRIG SOLN EXT SCH (09:00)
[2019-08-20] MEDS: OXYcodone 5 MG/5 ML ORAL.SOL UDC PO PRN ×2 (10:32→17:54)
[2019-08-20] MEDS: ALBUMIN HUMAN 25% 100 ML IV PRN (11:21)
[2019-08-20] MEDS: ONDANSETRON 2MG/ML, 2ML IVPush PRN (19:55)
[2019-08-20] MEDS: DAPTOMYCIN IV SCH (20:33)
[2019-08-20] MEDS: SODIUM CHLORIDE 0.9% IV SCH (20:33)
[2019-08-20] MEDS: MICAFUNGIN 100 MG in SODIUM CHLORIDE 0.9% 100 ML IV SCH (21:11)
[2019-08-21] MEDS: HEPARIN 5,000 UNITS/ML, 1ML SQ SCH ×4 (00:22→23:14)
[2019-08-21] MEDS: OXYcodone 5 MG/5 ML ORAL.SOL UDC PO PRN ×5 (00:32→19:35)
[2019-08-21] MEDS: ALBUTEROL SULFATE 2.5 MG/3 ML NPPB PRN ×2 (04:09→22:43)
[2019-08-21] MEDS: INSULIN LISPRO 100 UNITS/ML, PEN SQ-INSULIN SCH ×4 (05:04→23:00)
[2019-08-21 05:23] LABS: HCT (SEDRATE) 24.6 % (39.2-51.8)
[2019-08-21 05:24] LABS: ANION GAP 11 mmol/L (5-15); BASOPHILS # (AUTO) 0.05 x10^3/uL (0-0.1); BASOPHILS % (AUTO) 1 % (0-1); CALCIUM 10.6 mg/dL (8.5-10.1); CHLORIDE 99 mmol/L (98-107); CREATININE 2.29 mg/dL (0.7-1.3); EOSINOPHILS # (AUTO) 0.63 x10^3/uL (0-0.4); EOSINOPHILS % (AUTO) 5 % (1-7); LYMPHOCYTES # (AUTO) 1.46 x10^3/uL (1-3.4); LYMPHOCYTES % (AUTO) 13 % (22-44); MD NO; MEAN CORPUSCULAR HEMOGLOBIN 29.7 pg (27.5-34.5); MEAN CORPUSCULAR HGB CONC 33.8 g/dL (33.2-36.2); MEAN PLATELET VOLUME 7.3 fL (7.4-10.4); MONOCYTES # (AUTO) 1.07 x10^3/uL (0.2-0.8); MONOCYTES % (AUTO) 9 % (2-9); NEUTROPHILS # (AUTO) 8.51 x10^3/uL (1.8-6.8); NEUTROPHILS % (AUTO) 73 % (42-75); PLATELET COUNT 381 x10^3/uL (130-400); RED CELL DISTRIBUTION WIDTH 18.6 % (9.4-14.8)
[2019-08-21 05:32] LABS: CREATINE KINASE, TOTAL 49 U/L (39-308)
[2019-08-21 06:03] LABS: SEDIMENTATION RATE > 120 mm/hr (0-10)
[2019-08-21] MEDS: ERTAPENEM 0.5 GM in SODIUM CHLORIDE 0.9% 50 ML IV SCH (06:49)
[2019-08-21] MEDS: SEVELAMER 2.4 GM POWD.PACK JT SCH ×3 (09:28→16:34)
[2019-08-21] MEDS: FUROSEMIDE 40 MG/4 ML IV SCH (09:29)
[2019-08-21] MEDS: METHYLNALTREXONE 12 MG/0.6 ML SYR SQ SCH (09:29)
[2019-08-21] MEDS: GLYCOPYRROLATE 1 MG TABLET JT SCH ×3 (09:32→23:06)
[2019-08-21] MEDS: LACTOBACILLUS CHEW TABLET PO SCH ×3 (09:33→23:05)
[2019-08-21] MEDS: MAGNESIUM OXIDE 400 MG TABLET PO SCH (09:33)
[2019-08-21] MEDS: LACTULOSE 20 GM/30 ML UDC PO SCH ×2 (09:33→23:05)
[2019-08-21] MEDS: DOCUSATE 50 MG/5 ML, 10ML UDC PO SCH ×2 (09:33→23:05)
[2019-08-21] MEDS: SENNA 176 MG/5 ML ORAL SOL PO SCH ×2 (09:34→23:07)
[2019-08-21] MEDS: MIDODRINE 5 MG TABLET PO SCH ×3 (09:34→19:36)
[2019-08-21] MEDS: BUPROPION 100 MG TABLET PO SCH ×2 (09:35→23:05)
[2019-08-21] MEDS: ONDANSETRON 2MG/ML, 2ML IVPush PRN ×2 (09:35→16:31)
[2019-08-21] MEDS: MICAFUNGIN 100 MG in SODIUM CHLORIDE 0.9% 100 ML IV SCH (23:05)
[2019-08-22] MEDS ORDERED: CATHFLO-ALTEPLASE 2 MG/2 ML CATHFLUSH ONE
[2019-08-22] MEDS ORDERED: OXYcodone IR 5MG TABLET ONE (00:37)
[2019-08-22] MEDS: OXYcodone 5 MG/5 ML ORAL.SOL UDC PO PRN ×4 (00:39→21:08)
[2019-08-22] MEDS: FUROSEMIDE 40 MG/4 ML IV SCH ×3 (00:39→21:10)
[2019-08-22] MEDS: TRAZODONE 100MG TABLET PO PRN (01:29)
[2019-08-22 04:27] LABS: BASOPHILS # (AUTO) 0.04 x10^3/uL (0-0.1); BASOPHILS % (AUTO) 0 % (0-1); EOSINOPHILS # (AUTO) 0.52 x10^3/uL (0-0.4); EOSINOPHILS % (AUTO) 5 % (1-7); LYMPHOCYTES # (AUTO) 1.46 x10^3/uL (1-3.4); LYMPHOCYTES % (AUTO) 15 % (22-44); MD NO; MEAN CORPUSCULAR HEMOGLOBIN 29.1 pg (27.5-34.5); MEAN CORPUSCULAR HGB CONC 32.9 g/dL (33.2-36.2); MEAN CORPUSCULAR VOLUME 88.5 fL (81-97); MONOCYTES # (AUTO) 0.87 x10^3/uL (0.2-0.8); MONOCYTES % (AUTO) 9 % (2-9); NEUTROPHILS % (AUTO) 70 % (42-75); PLATELET COUNT 370 x10^3/uL (130-400); RED BLOOD COUNT 2.66 x10^6/uL (4.38-5.82); RED CELL DISTRIBUTION WIDTH 18.5 % (9.4-14.8)
[2019-08-22 04:31] LABS: ANION GAP 10 mmol/L (5-15); CALCIUM 9.4 mg/dL (8.5-10.1); CHLORIDE 100 mmol/L (98-107); CREATININE 1.34 mg/dL (0.7-1.3)
[2019-08-22 04:33] LABS: CREATINE KINASE, TOTAL 55 U/L (39-308)
[2019-08-22] MEDS: INSULIN LISPRO 100 UNITS/ML, PEN SQ-INSULIN SCH ×4 (04:51→22:35)
[2019-08-22] MEDS: ONDANSETRON 2MG/ML, 2ML IVPush PRN ×4 (05:51→22:35)
[2019-08-22 08:30] VITALS: BP 124/75
[2019-08-22] MEDS: MIDODRINE 5 MG TABLET PO SCH ×3 (08:37→21:00)
[2019-08-22] MEDS: LACTULOSE 20 GM/30 ML UDC PO SCH ×2 (08:37→21:14)
[2019-08-22] MEDS: LACTOBACILLUS CHEW TABLET PO SCH ×3 (08:37→21:10)
[2019-08-22] MEDS: BUPROPION 100 MG TABLET PO SCH ×2 (08:37→21:09)
[2019-08-22] MEDS: SENNA 176 MG/5 ML ORAL SOL PO SCH ×2 (08:37→21:14)
[2019-08-22] MEDS: MAGNESIUM OXIDE 400 MG TABLET PO SCH (08:38)
[2019-08-22] MEDS: SEVELAMER 2.4 GM POWD.PACK JT SCH ×3 (08:38→16:02)
[2019-08-22] MEDS: METHYLNALTREXONE 12 MG/0.6 ML SYR SQ SCH (08:38)
[2019-08-22] MEDS: GLYCOPYRROLATE 1 MG TABLET JT SCH ×3 (08:38→21:09)
[2019-08-22] MEDS: HEPARIN 5,000 UNITS/ML, 1ML SQ SCH ×2 (08:39→16:02)
[2019-08-22] MEDS: DOCUSATE 50 MG/5 ML, 10ML UDC PO SCH ×2 (08:39→21:08)
[2019-08-22] MEDS: DAKIN'S SOLUTION 1/4 STRENGTH 1,000 ML IRRIG SOLN EXT SCH (09:00)
[2019-08-22] MEDS: ERTAPENEM 0.5 GM in SODIUM CHLORIDE 0.9% 50 ML IV SCH (09:18)
[2019-08-22] MEDS: FENTANYL 100 MCG PATCH TD SCH (11:00)
[2019-08-22] MEDS: ALBUTEROL SULFATE 2.5 MG/3 ML NPPB PRN ×2 (11:08→14:10)
[2019-08-22] MEDS ORDERED: LORazepam 2 MG/ML, 1ML ONE (11:37)
[2019-08-22] MEDS: LORazepam INTENSOL 2 MG/ML PO PRN (11:46)
[2019-08-22] MEDS: ACETAMINOPHEN 650 MG/20.3 ML UDC PO PRN (17:20)
[2019-08-22] MEDS: SODIUM CHLORIDE 0.9% IV SCH (21:14)
[2019-08-22] MEDS: DAPTOMYCIN IV SCH (21:14)
[2019-08-22] MEDS: MICAFUNGIN 100 MG in SODIUM CHLORIDE 0.9% 100 ML IV SCH (22:35)
[2019-08-23] MEDS: HEPARIN 5,000 UNITS/ML, 1ML SQ SCH ×3 (00:30→16:55)
[2019-08-23] MEDS: TRAZODONE 100MG TABLET PO PRN (00:30)
[2019-08-23] MEDS: OXYcodone 5 MG/5 ML ORAL.SOL UDC PO PRN ×3 (01:03→16:55)
[2019-08-23 04:13] LABS: MEAN CORPUSCULAR HGB CONC 32.4 g/dL (33.2-36.2); MEAN CORPUSCULAR VOLUME 89.5 fL (81-97); PLATELET COUNT 357 x10^3/uL (130-400); RED BLOOD COUNT 2.56 x10^6/uL (4.38-5.82); RED CELL DISTRIBUTION WIDTH 18.6 % (9.4-14.8)
[2019-08-23 04:19] LABS: ANION GAP 12 mmol/L (5-15); CALCIUM 9.8 mg/dL (8.5-10.1); CHLORIDE 97 mmol/L (98-107); CREATININE 2.07 mg/dL (0.7-1.3)
[2019-08-23 04:30] LABS: BASOPHILS # (AUTO) 0.11 x10^3/uL (0-0.1); BASOPHILS % (AUTO) 1 % (0-1); EOSINOPHILS # (AUTO) 0.55 x10^3/uL (0-0.4); EOSINOPHILS % (AUTO) 5 % (1-7); LYMPHOCYTES # (AUTO) 1.77 x10^3/uL (1-3.4); LYMPHOCYTES % (AUTO) 17 % (22-44); MD SCAN; MONOCYTES # (AUTO) 0.94 x10^3/uL (0.2-0.8); MONOCYTES % (AUTO) 9 % (2-9); NEUTROPHILS # (AUTO) 6.83 x10^3/uL (1.8-6.8); NEUTROPHILS % (AUTO) 67 % (42-75)
[2019-08-23] MEDS: INSULIN LISPRO 100 UNITS/ML, PEN SQ-INSULIN SCH ×4 (04:34→23:00)
[2019-08-23] MEDS: ONDANSETRON 2MG/ML, 2ML IVPush PRN ×2 (06:16→17:59)
[2019-08-23] MEDS: LACTULOSE 20 GM/30 ML UDC PO SCH ×2 (09:00→22:04)
[2019-08-23] MEDS: SENNA 176 MG/5 ML ORAL SOL PO SCH ×2 (09:00→22:04)
[2019-08-23] MEDS: BUPROPION 100 MG TABLET PO SCH ×2 (09:12→22:14)
[2019-08-23] MEDS: SEVELAMER 2.4 GM POWD.PACK JT SCH ×3 (09:12→16:56)
[2019-08-23] MEDS: MAGNESIUM OXIDE 400 MG TABLET PO SCH (09:12)
[2019-08-23] MEDS: LACTOBACILLUS CHEW TABLET PO SCH ×3 (09:15→22:04)
[2019-08-23] MEDS: GLYCOPYRROLATE 1 MG TABLET JT SCH ×3 (09:15→22:14)
[2019-08-23] MEDS: MIDODRINE 5 MG TABLET PO SCH ×3 (09:15→22:05)
[2019-08-23] MEDS: METHYLNALTREXONE 12 MG/0.6 ML SYR SQ SCH (09:16)
[2019-08-23] MEDS: FUROSEMIDE 40 MG/4 ML IV SCH ×2 (09:18→22:04)
[2019-08-23] MEDS: DOCUSATE 50 MG/5 ML, 10ML UDC PO SCH ×2 (09:18→22:14)
[2019-08-23] MEDS: DARBEPOETIN 100 MCG/ML SQ SCH (12:30)
[2019-08-23] MEDS: ERTAPENEM 0.5 GM in SODIUM CHLORIDE 0.9% 50 ML IV SCH (13:30)
[2019-08-23] MEDS: HYDROmorphone 2 MG/ML, 1ML IVPush PRN (14:06)
--- NOTE | 2019-08-23 14:50 | NUR ---
WEDNESDAY Arms: Bicep Curls Abs/Back: Glut Squeezes Legs: Ankle Pumps WEDNESDAY Arms: Chest Presses Abs/Back: Abdominal Crunches Legs: Knee Bends WEDNESDAY Arms: Shoulder Rolls Abs/Back: Back Extensions Legs: Quad Squeezes WEDNESDAY Arms: Tricep Pushes Abs/Back: Glut Squeezes Legs: Knee Bend WEDNESDAY Arms: Bicep Curls Abs/Back: Abdominal Crunches Legs: Ankle Pumps WEDNESDAY Arms: Chest Presses Abs/Back: Back Extensions Legs: Knee Bends WEDNESDAY Arms: Tricep Pushes Abs/Back: Abdominal Crunches Legs: Quad Squeezes Patient should always Help in his rolling side to side, such as bring arms across body and bending / moving appropriate leg to assist in rolling. Participate in washing his face Chair position daily / Chair as tolerated Daily PROM of all joints along all planes Perform as often as possible, at least 3 times a day Addendum: 08/23/19 at 1455 by Felisha Kilgore OT Amended: Links added.
[2019-08-23] MEDS: MICAFUNGIN 100 MG in SODIUM CHLORIDE 0.9% 100 ML IV SCH (22:19)
[2019-08-24] MEDS: HEPARIN 5,000 UNITS/ML, 1ML SQ SCH ×4 (01:19→23:28)
[2019-08-24] MEDS: ONDANSETRON 2MG/ML, 2ML IVPush PRN ×3 (01:37→12:57)
[2019-08-24] MEDS: TRAZODONE 100MG TABLET PO PRN (01:37)
[2019-08-24] MEDS: ACETAMINOPHEN 650 MG/20.3 ML UDC PO PRN (01:37)
[2019-08-24] MEDS: INSULIN LISPRO 100 UNITS/ML, PEN SQ-INSULIN SCH ×4 (05:00→23:00)
[2019-08-24 05:58] LABS: MEAN CORPUSCULAR HGB CONC 32.6 g/dL (33.2-36.2); MEAN PLATELET VOLUME 7.2 fL (7.4-10.4); PLATELET COUNT 383 x10^3/uL (130-400); RED BLOOD COUNT 2.81 x10^6/uL (4.38-5.82); RED CELL DISTRIBUTION WIDTH 18.2 % (9.4-14.8)
[2019-08-24] MEDS: OXYcodone 5 MG/5 ML ORAL.SOL UDC PO PRN ×3 (05:58→17:26)
[2019-08-24 06:03] LABS: ANION GAP 11 mmol/L (5-15); CALCIUM 10.2 mg/dL (8.5-10.1); CHLORIDE 98 mmol/L (98-107)
[2019-08-24 06:04] LABS: CREATININE 1.84 mg/dL (0.7-1.3)
[2019-08-24 06:31] LABS: MD YES
[2019-08-24 06:33] LABS: BAND#(MANUAL) 0.13 x10^3/uL; BANDS%(MANUAL) 1 % (0-7); EOS#(MANUAL) 1.05 x10^3/uL (0.0-0.4); EOS% (MANUAL) 8 % (1-7); LYMPH#(MANUAL) 1.97 x10^3/uL (1-3.4); LYMPHS% (MANUAL) 15 % (22-44); METAMYELOCYTES# (MANUAL) 0.13 x10^3/uL (0-0); METAMYELOCYTES% (MANUAL) 1 % (0-1); MONOS#(MANUAL) 0.92 x10^3/uL (0.3-2.7); MONOS% (MANUAL) 7 % (2-9); MYELOCYTES# (MANUAL) 0.26 x10^3/uL (0-0); MYELOCYTES% (MANUAL) 2 % (0-0); SEG#(MANUAL) 8.65 x10^3/uL (1.8-6.8); SEGS% (MANUAL) 66 % (42-75)
[2019-08-24 06:35] LABS: <PLATELET ESTIMATE> ADEQUATE; <PLT MORPHOLOGY> NORMAL PLT MORPH; ANISOCYTOSIS 1+; POLYCHROMASIA 1+
[2019-08-24] MEDS: MIDODRINE 5 MG TABLET PO SCH ×3 (08:50→23:19)
[2019-08-24] MEDS: GLYCOPYRROLATE 1 MG TABLET JT SCH ×3 (08:51→23:19)
[2019-08-24] MEDS: LACTULOSE 20 GM/30 ML UDC PO SCH ×2 (08:51→23:18)
[2019-08-24] MEDS: LACTOBACILLUS CHEW TABLET PO SCH ×3 (08:51→23:18)
[2019-08-24] MEDS: SEVELAMER 2.4 GM POWD.PACK JT SCH ×3 (08:51→17:28)
[2019-08-24] MEDS: METHYLNALTREXONE 12 MG/0.6 ML SYR SQ SCH (08:51)
[2019-08-24] MEDS: FUROSEMIDE 40 MG/4 ML IV SCH ×2 (08:51→23:20)
[2019-08-24] MEDS: DOCUSATE 50 MG/5 ML, 10ML UDC PO SCH ×2 (08:51→23:19)
[2019-08-24] MEDS: MAGNESIUM OXIDE 400 MG TABLET PO SCH (08:51)
[2019-08-24] MEDS: BUPROPION 100 MG TABLET PO SCH ×2 (08:51→23:19)
[2019-08-24] MEDS: SENNA 176 MG/5 ML ORAL SOL PO SCH ×2 (08:52→23:18)
[2019-08-24] MEDS: ERTAPENEM 0.5 GM in SODIUM CHLORIDE 0.9% 50 ML IV SCH (14:38)
[2019-08-24] MEDS: SODIUM CHLORIDE 0.9% IV SCH (19:43)
[2019-08-24] MEDS: DAPTOMYCIN IV SCH (19:43)
[2019-08-24] MEDS: MICAFUNGIN 100 MG in SODIUM CHLORIDE 0.9% 100 ML IV SCH (23:18)
[2019-08-25] MEDS: INSULIN LISPRO 100 UNITS/ML, PEN SQ-INSULIN SCH ×4 (05:00→23:00)
[2019-08-25 06:00] LABS: ANION GAP 13 mmol/L (5-15); CALCIUM 10.4 mg/dL (8.5-10.1); CHLORIDE 98 mmol/L (98-107); CREATININE 2.34 mg/dL (0.7-1.3)
[2019-08-25 07:22] LABS: MD YES; MEAN CORPUSCULAR HEMOGLOBIN 29.1 pg (27.5-34.5); MEAN CORPUSCULAR HGB CONC 32.6 g/dL (33.2-36.2); MEAN CORPUSCULAR VOLUME 89.2 fL (81-97); MEAN PLATELET VOLUME 7.3 fL (7.4-10.4); PLATELET COUNT 299 x10^3/uL (130-400); RED BLOOD COUNT 2.79 x10^6/uL (4.38-5.82); RED CELL DISTRIBUTION WIDTH 18.7 % (9.4-14.8)
[2019-08-25 07:24] LABS: <PLATELET ESTIMATE> ADEQUATE; <PLT MORPHOLOGY> NORMAL PLT MORPH; ANISOCYTOSIS 1+; EOS% (MANUAL) 7 % (1-7); LYMPH#(MANUAL) 2.41 x10^3/uL (1-3.4); LYMPHS% (MANUAL) 13 % (22-44); METAMYELOCYTES# (MANUAL) 0.56 x10^3/uL (0-0); METAMYELOCYTES% (MANUAL) 3 % (0-1); MONOS#(MANUAL) 0.56 x10^3/uL (0.3-2.7); MONOS% (MANUAL) 3 % (2-9); POLYCHROMASIA 1+; SEG#(MANUAL) 13.69 x10^3/uL (1.8-6.8); SEGS% (MANUAL) 74 % (42-75)
[2019-08-25 07:25] LABS: PMNS WITH VACUOLES 1+
[2019-08-25] MEDS: SENNA 176 MG/5 ML ORAL SOL PO SCH ×2 (09:00→21:48)
[2019-08-25] MEDS: LACTOBACILLUS CHEW TABLET PO SCH ×3 (09:16→21:49)
[2019-08-25] MEDS: LACTULOSE 20 GM/30 ML UDC PO SCH ×2 (09:16→21:49)
[2019-08-25] MEDS: GLYCOPYRROLATE 1 MG TABLET JT SCH ×3 (09:16→21:49)
[2019-08-25] MEDS: BUPROPION 100 MG TABLET PO SCH ×2 (09:17→21:50)
[2019-08-25] MEDS: MIDODRINE 5 MG TABLET PO SCH ×3 (09:17→21:50)
[2019-08-25] MEDS: OXYcodone 5 MG/5 ML ORAL.SOL UDC PO PRN ×3 (09:18→21:48)
[2019-08-25] MEDS: POLYETHYLENE GLYCOL 17 GM PACKET PO PRN (09:19)
[2019-08-25] MEDS: SEVELAMER 2.4 GM POWD.PACK JT SCH ×3 (09:19→17:34)
[2019-08-25] MEDS: METHYLNALTREXONE 12 MG/0.6 ML SYR SQ SCH (09:19)
[2019-08-25] MEDS: DOCUSATE 50 MG/5 ML, 10ML UDC PO SCH ×2 (09:19→21:49)
[2019-08-25] MEDS: FUROSEMIDE 40 MG/4 ML IV SCH ×2 (09:20→21:49)
[2019-08-25] MEDS: ONDANSETRON 2MG/ML, 2ML IVPush PRN ×3 (09:20→21:44)
[2019-08-25] MEDS: MAGNESIUM OXIDE 400 MG TABLET PO SCH (09:20)
[2019-08-25] MEDS: HYDROmorphone 2 MG/ML, 1ML IVPush PRN (09:59)
[2019-08-25] MEDS: FENTANYL 100 MCG PATCH TD SCH (12:01)
[2019-08-25] MEDS: HEPARIN 5,000 UNITS/ML, 1ML SQ SCH ×2 (12:10→17:50)
[2019-08-25] MEDS: ERTAPENEM 0.5 GM in SODIUM CHLORIDE 0.9% 50 ML IV SCH (13:38)
[2019-08-25] MEDS: MICAFUNGIN 100 MG in SODIUM CHLORIDE 0.9% 100 ML IV SCH (21:49)
[2019-08-26] MEDS: HEPARIN 5,000 UNITS/ML, 1ML SQ SCH ×3 (00:47→16:57)
[2019-08-26 04:32] LABS: MEAN CORPUSCULAR HEMOGLOBIN 29.7 pg (27.5-34.5); MEAN CORPUSCULAR HGB CONC 32.9 g/dL (33.2-36.2); MEAN CORPUSCULAR VOLUME 90.1 fL (81-97); MEAN PLATELET VOLUME 7.1 fL (7.4-10.4); PLATELET COUNT 380 x10^3/uL (130-400); RED BLOOD COUNT 2.63 x10^6/uL (4.38-5.82); RED CELL DISTRIBUTION WIDTH 18.7 % (9.4-14.8)
[2019-08-26 04:41] LABS: ANION GAP 13 mmol/L (5-15); CALCIUM 10.2 mg/dL (8.5-10.1); CHLORIDE 97 mmol/L (98-107); CREATININE 2.59 mg/dL (0.7-1.3)
[2019-08-26] MEDS: INSULIN LISPRO 100 UNITS/ML, PEN SQ-INSULIN SCH ×4 (05:00→21:40)
[2019-08-26 05:57] LABS: MD YES
[2019-08-26 05:58] LABS: BAND#(MANUAL) 0.13 x10^3/uL; BANDS%(MANUAL) 1 % (0-7); EOS#(MANUAL) 0.51 x10^3/uL (0.0-0.4); EOS% (MANUAL) 4 % (1-7); LYMPH#(MANUAL) 2.03 x10^3/uL (1-3.4); LYMPHS% (MANUAL) 16 % (22-44); METAMYELOCYTES# (MANUAL) 0.38 x10^3/uL (0-0); METAMYELOCYTES% (MANUAL) 3 % (0-1); MONOS#(MANUAL) 0.76 x10^3/uL (0.3-2.7); MONOS% (MANUAL) 6 % (2-9); MYELOCYTES# (MANUAL) 0.13 x10^3/uL (0-0); MYELOCYTES% (MANUAL) 1 % (0-0); SEG#(MANUAL) 8.76 x10^3/uL (1.8-6.8); SEGS% (MANUAL) 69 % (42-75)
[2019-08-26 05:59] LABS: <PLATELET ESTIMATE> ADEQUATE; <PLT MORPHOLOGY> NORMAL PLT MORPH; ANISOCYTOSIS 1+; POLYCHROMASIA 1+
[2019-08-26] MEDS: ONDANSETRON 2MG/ML, 2ML IVPush PRN ×3 (06:08→19:36)
[2019-08-26] MEDS: ALBUTEROL SULFATE 2.5 MG/3 ML NPPB PRN ×2 (08:05→18:04)
[2019-08-26] MEDS: SEVELAMER 2.4 GM POWD.PACK JT SCH ×3 (08:41→16:56)
[2019-08-26] MEDS: SENNA 176 MG/5 ML ORAL SOL PO SCH ×2 (08:42→19:43)
[2019-08-26] MEDS: LACTULOSE 20 GM/30 ML UDC PO SCH ×2 (08:42→19:43)
[2019-08-26] MEDS: METHYLNALTREXONE 12 MG/0.6 ML SYR SQ SCH (08:42)
[2019-08-26] MEDS: LACTOBACILLUS CHEW TABLET PO SCH ×3 (08:42→20:22)
[2019-08-26] MEDS: DOCUSATE 50 MG/5 ML, 10ML UDC PO SCH ×2 (08:42→19:43)
[2019-08-26] MEDS: MIDODRINE 5 MG TABLET PO SCH ×3 (08:43→20:29)
[2019-08-26] MEDS: FUROSEMIDE 40 MG/4 ML IV SCH ×2 (08:43→20:22)
[2019-08-26] MEDS: GLYCOPYRROLATE 1 MG TABLET JT SCH ×3 (08:43→20:22)
[2019-08-26] MEDS: BUPROPION 100 MG TABLET PO SCH ×2 (08:44→20:22)
[2019-08-26] MEDS: MAGNESIUM OXIDE 400 MG TABLET PO SCH (09:00)
[2019-08-26] MEDS: OXYcodone 5 MG/5 ML ORAL.SOL UDC PO PRN ×3 (11:26→21:35)
[2019-08-26] MEDS: ERTAPENEM 0.5 GM in SODIUM CHLORIDE 0.9% 50 ML IV SCH (14:02)
[2019-08-26] MEDS: MICAFUNGIN 100 MG in SODIUM CHLORIDE 0.9% 100 ML IV SCH (20:22)
[2019-08-27] MEDS: TRAZODONE 100MG TABLET PO PRN (00:46)
[2019-08-27] MEDS: HEPARIN 5,000 UNITS/ML, 1ML SQ SCH ×3 (00:46→16:16)
[2019-08-27] MEDS: ONDANSETRON 2MG/ML, 2ML IVPush PRN ×3 (01:24→17:05)
[2019-08-27] MEDS: OXYcodone 5 MG/5 ML ORAL.SOL UDC PO PRN ×3 (01:24→17:05)
[2019-08-27] MEDS: INSULIN LISPRO 100 UNITS/ML, PEN SQ-INSULIN SCH ×4 (04:13→22:09)
[2019-08-27 04:33] LABS: BASOPHILS # (AUTO) 0.06 x10^3/uL (0-0.1); BASOPHILS % (AUTO) 1 % (0-1); EOSINOPHILS # (AUTO) 0.53 x10^3/uL (0-0.4); EOSINOPHILS % (AUTO) 4 % (1-7); LYMPHOCYTES # (AUTO) 1.91 x10^3/uL (1-3.4); LYMPHOCYTES % (AUTO) 16 % (22-44); MD NO; MEAN CORPUSCULAR HEMOGLOBIN 30.2 pg (27.5-34.5); MEAN CORPUSCULAR HGB CONC 33.5 g/dL (33.2-36.2); MEAN CORPUSCULAR VOLUME 90.2 fL (81-97); MEAN PLATELET VOLUME 7.1 fL (7.4-10.4); MONOCYTES # (AUTO) 1.18 x10^3/uL (0.2-0.8); MONOCYTES % (AUTO) 10 % (2-9); NEUTROPHILS # (AUTO) 8.39 x10^3/uL (1.8-6.8); NEUTROPHILS % (AUTO) 70 % (42-75); PLATELET COUNT 375 x10^3/uL (130-400); RED BLOOD COUNT 2.74 x10^6/uL (4.38-5.82); RED CELL DISTRIBUTION WIDTH 18.3 % (9.4-14.8)
[2019-08-27 04:52] LABS: ANION GAP 14 mmol/L (5-15); CALCIUM 10.2 mg/dL (8.5-10.1); CHLORIDE 100 mmol/L (98-107); CREATININE 1.93 mg/dL (0.7-1.3)
[2019-08-27] MEDS: SENNA 176 MG/5 ML ORAL SOL PO SCH ×2 (09:00→21:00)
[2019-08-27] MEDS: DOCUSATE 50 MG/5 ML, 10ML UDC PO SCH ×2 (09:00→21:20)
[2019-08-27] MEDS: METHYLNALTREXONE 12 MG/0.6 ML SYR SQ SCH (09:19)
[2019-08-27] MEDS: FUROSEMIDE 40 MG/4 ML IV SCH ×2 (09:19→21:21)
[2019-08-27] MEDS: MAGNESIUM OXIDE 400 MG TABLET PO SCH (09:20)
[2019-08-27] MEDS: SCOPOLAMINE PATCH, 1.5MG PATCH.TD72 TD SCH (09:20)
[2019-08-27] MEDS: LACTULOSE 20 GM/30 ML UDC PO SCH ×2 (09:21→22:09)
[2019-08-27] MEDS: MIDODRINE 5 MG TABLET PO SCH ×3 (09:21→21:00)
[2019-08-27] MEDS: LACTOBACILLUS CHEW TABLET PO SCH ×3 (09:21→21:20)
[2019-08-27] MEDS: SEVELAMER 2.4 GM POWD.PACK JT SCH ×3 (09:23→16:15)
[2019-08-27] MEDS: BUPROPION 100 MG TABLET PO SCH ×2 (09:31→21:20)
[2019-08-27] MEDS: ALBUTEROL SULFATE 2.5 MG/3 ML NPPB PRN (11:00)
[2019-08-27] MEDS: ERTAPENEM 0.5 GM in SODIUM CHLORIDE 0.9% 50 ML IV SCH (14:23)
[2019-08-27] MEDS: MICAFUNGIN 100 MG in SODIUM CHLORIDE 0.9% 100 ML IV SCH (21:20)
[2019-08-27] MEDS ORDERED: LABETALOL 200 MG TABLET PO SCH (22:00)
[2019-08-28] MEDS: OXYcodone 5 MG/5 ML ORAL.SOL UDC PO PRN ×3 (00:13→19:15)
[2019-08-28] MEDS: ONDANSETRON 2MG/ML, 2ML IVPush PRN ×3 (00:13→20:39)
[2019-08-28] MEDS: HEPARIN 5,000 UNITS/ML, 1ML SQ SCH ×3 (00:13→17:30)
[2019-08-28] MEDS: INSULIN LISPRO 100 UNITS/ML, PEN SQ-INSULIN SCH ×4 (04:24→21:56)
[2019-08-28 04:28] LABS: BASOPHILS # (AUTO) 0.04 x10^3/uL (0-0.1); BASOPHILS % (AUTO) 0 % (0-1); EOSINOPHILS # (AUTO) 0.45 x10^3/uL (0-0.4); EOSINOPHILS % (AUTO) 4 % (1-7); LYMPHOCYTES # (AUTO) 1.71 x10^3/uL (1-3.4); LYMPHOCYTES % (AUTO) 15 % (22-44); MD NO; MEAN CORPUSCULAR HEMOGLOBIN 29.4 pg (27.5-34.5); MEAN CORPUSCULAR HGB CONC 32.8 g/dL (33.2-36.2); MEAN CORPUSCULAR VOLUME 89.6 fL (81-97); MEAN PLATELET VOLUME 7.1 fL (7.4-10.4); MONOCYTES # (AUTO) 0.99 x10^3/uL (0.2-0.8); MONOCYTES % (AUTO) 9 % (2-9); NEUTROPHILS # (AUTO) 8.26 x10^3/uL (1.8-6.8); NEUTROPHILS % (AUTO) 72 % (42-75); PLATELET COUNT 374 x10^3/uL (130-400); RED BLOOD COUNT 2.74 x10^6/uL (4.38-5.82); RED CELL DISTRIBUTION WIDTH 18.5 % (9.4-14.8)
[2019-08-28 04:39] LABS: ANION GAP 13 mmol/L (5-15); CALCIUM 10.5 mg/dL (8.5-10.1); CHLORIDE 100 mmol/L (98-107)
[2019-08-28 04:40] LABS: CREATININE 2.37 mg/dL (0.7-1.3)
[2019-08-28] MEDS: SENNA 176 MG/5 ML ORAL SOL PO SCH ×2 (09:00→21:00)
[2019-08-28] MEDS: METHYLNALTREXONE 12 MG/0.6 ML SYR SQ SCH (10:04)
[2019-08-28] MEDS: FUROSEMIDE 40 MG/4 ML IV SCH ×2 (10:05→20:39)
[2019-08-28] MEDS: DOCUSATE 50 MG/5 ML, 10ML UDC PO SCH ×2 (10:05→20:39)
[2019-08-28] MEDS: LACTULOSE 20 GM/30 ML UDC PO SCH ×2 (10:05→20:39)
[2019-08-28] MEDS: MAGNESIUM OXIDE 400 MG TABLET PO SCH (10:06)
[2019-08-28] MEDS: SEVELAMER 2.4 GM POWD.PACK JT SCH ×3 (10:06→17:30)
[2019-08-28] MEDS: LACTOBACILLUS CHEW TABLET PO SCH ×3 (10:06→20:39)
[2019-08-28] MEDS: BUPROPION 100 MG TABLET PO SCH ×2 (10:06→20:39)
[2019-08-28] MEDS: FENTANYL 100 MCG PATCH TD SCH (12:05)
[2019-08-28] MEDS: HYDROmorphone 2 MG/ML, 1ML IVPush PRN (13:35)
[2019-08-28] MEDS: ALBUTEROL SULFATE 2.5 MG/3 ML NPPB PRN (16:46)
[2019-08-28] MEDS: MIDODRINE 5 MG TABLET PO SCH ×2 (17:31→21:00)
[2019-08-28] MEDS: MICAFUNGIN 100 MG in SODIUM CHLORIDE 0.9% 100 ML IV SCH (21:55)
[2019-08-29] MEDS: HEPARIN 5,000 UNITS/ML, 1ML SQ SCH ×3 (01:02→17:51)
[2019-08-29] MEDS: OXYcodone 5 MG/5 ML ORAL.SOL UDC PO PRN ×4 (01:02→20:17)
[2019-08-29] MEDS: TRAZODONE 100MG TABLET PO PRN (01:02)
[2019-08-29 04:09] LABS: MEAN CORPUSCULAR HEMOGLOBIN 29.6 pg (27.5-34.5); MEAN CORPUSCULAR HGB CONC 33.1 g/dL (33.2-36.2); MEAN CORPUSCULAR VOLUME 89.6 fL (81-97); MEAN PLATELET VOLUME 7.2 fL (7.4-10.4); PLATELET COUNT 379 x10^3/uL (130-400); RED BLOOD COUNT 2.68 x10^6/uL (4.38-5.82)
[2019-08-29 04:22] LABS: ALBUMIN 2.7 g/dL (3.4-5.0); ANION GAP 15 mmol/L (5-15); CALCIUM 10.3 mg/dL (8.5-10.1); CHLORIDE 100 mmol/L (98-107)
[2019-08-29 04:26] LABS: ALANINE AMINOTRANSFERASE 35 U/L (12-78); ALKALINE PHOSPHATASE 167 U/L (45-117); BILIRUBIN,TOTAL 0.3 mg/dL (0.2-1.0); CREATININE 2.61 mg/dL (0.7-1.3); TOTAL PROTEIN 7.5 g/dL (6.4-8.2)
[2019-08-29 04:29] LABS: BASOPHILS # (AUTO) 0.05 x10^3/uL (0-0.1); BASOPHILS % (AUTO) 0 % (0-1); EOSINOPHILS % (AUTO) 3 % (1-7); LYMPHOCYTES # (AUTO) 1.66 x10^3/uL (1-3.4); LYMPHOCYTES % (AUTO) 14 % (22-44); MD SCAN; MONOCYTES # (AUTO) 1.02 x10^3/uL (0.2-0.8); MONOCYTES % (AUTO) 8 % (2-9); NEUTROPHILS # (AUTO) 8.99 x10^3/uL (1.8-6.8); NEUTROPHILS % (AUTO) 74 % (42-75)
[2019-08-29] MEDS: INSULIN LISPRO 100 UNITS/ML, PEN SQ-INSULIN SCH ×4 (04:47→23:00)
[2019-08-29] MEDS: SEVELAMER 2.4 GM POWD.PACK JT SCH ×3 (09:00→17:46)
[2019-08-29] MEDS: DOCUSATE 50 MG/5 ML, 10ML UDC PO SCH ×2 (09:00→21:25)
[2019-08-29] MEDS: BUPROPION 100 MG TABLET PO SCH ×2 (09:01→21:25)
[2019-08-29] MEDS: LACTOBACILLUS CHEW TABLET PO SCH ×3 (09:01→21:26)
[2019-08-29] MEDS: LACTULOSE 20 GM/30 ML UDC PO SCH ×2 (09:01→21:25)
[2019-08-29] MEDS: MIDODRINE 5 MG TABLET PO SCH ×3 (09:02→21:26)
[2019-08-29] MEDS: MAGNESIUM OXIDE 400 MG TABLET PO SCH (09:02)
[2019-08-29] MEDS: SENNA 176 MG/5 ML ORAL SOL PO SCH ×2 (09:02→21:00)
[2019-08-29] MEDS: FUROSEMIDE 40 MG/4 ML IV SCH ×2 (09:03→21:25)
[2019-08-29] MEDS: METHYLNALTREXONE 12 MG/0.6 ML SYR SQ SCH (09:04)
[2019-08-29] MEDS: ONDANSETRON 2MG/ML, 2ML IVPush PRN ×3 (09:20→17:56)
[2019-08-29] MEDS: GABAPENTIN 100 MG CAPSULE PO SCH ×3 (12:06→21:26)
[2019-08-29] MEDS: ALBUTEROL SULFATE 2.5 MG/3 ML NPPB PRN (13:42)
[2019-08-29] MEDS ORDERED: PHARMACY MAY ADJ FOR RENAL FX MC SCH (14:00)
[2019-08-29] MEDS ORDERED: PROPOFOL 100 ML IV PRN (14:00)
[2019-08-29] MEDS ORDERED: GLUCAGON 1 MG IM PRN (14:00)
[2019-08-29] MEDS: ALBUTEROL/IPRATROPIUM 2.5MG/0.5MG, 3 ML INLINE SCH ×3 (14:00→22:00)
[2019-08-29] MEDS ORDERED: DEXTROSE 50%, 50ML SYRINGE IVPush PRN (14:00)
[2019-08-29] MEDS ORDERED: DEXTROSE 4 GM TAB.CHEW PO PRN (14:00)
[2019-08-29] MEDS ORDERED: LORazepam 2 MG/ML, 1ML ONE (20:10)
[2019-08-29] MEDS: LORazepam INTENSOL 2 MG/ML PO PRN (20:15)
[2019-08-29] MEDS: PROPOFOL 100 ML IV PRN (20:24)
[2019-08-29] MEDS: SODIUM CHLORIDE FLUSH 10ML SYR IVF SCH (21:00)
[2019-08-29] MEDS: MICAFUNGIN 100 MG in SODIUM CHLORIDE 0.9% 100 ML IV SCH (21:24)
[2019-08-30] MEDS: ONDANSETRON 2MG/ML, 2ML IVPush PRN ×2 (00:03→07:10)
[2019-08-30] MEDS: HYDROmorphone 2 MG/ML, 1ML IVPush PRN ×2 (00:04→13:23)
[2019-08-30] MEDS: PROPOFOL 100 ML IV PRN ×3 (00:05→13:43)
[2019-08-30] MEDS: ALBUTEROL/IPRATROPIUM 2.5MG/0.5MG, 3 ML INLINE SCH ×6 (02:00→23:00)
[2019-08-30 04:36] LABS: BASOPHILS # (AUTO) 0.18 x10^3/uL (0-0.1); BASOPHILS % (AUTO) 1 % (0-1); EOSINOPHILS # (AUTO) 0.51 x10^3/uL (0-0.4); EOSINOPHILS % (AUTO) 4 % (1-7); LYMPHOCYTES # (AUTO) 2.42 x10^3/uL (1-3.4); LYMPHOCYTES % (AUTO) 17 % (22-44); MD NO; MEAN CORPUSCULAR HEMOGLOBIN 29.9 pg (27.5-34.5); MEAN CORPUSCULAR HGB CONC 33.4 g/dL (33.2-36.2); MEAN CORPUSCULAR VOLUME 89.5 fL (81-97); MEAN PLATELET VOLUME 7.4 fL (7.4-10.4); MONOCYTES # (AUTO) 1.31 x10^3/uL (0.2-0.8); MONOCYTES % (AUTO) 9 % (2-9); NEUTROPHILS # (AUTO) 9.89 x10^3/uL (1.8-6.8); NEUTROPHILS % (AUTO) 69 % (42-75); PLATELET COUNT 378 x10^3/uL (130-400); RED BLOOD COUNT 2.87 x10^6/uL (4.38-5.82); RED CELL DISTRIBUTION WIDTH 17.7 % (9.4-14.8)
[2019-08-30 04:53] LABS: ANION GAP 13 mmol/L (5-15); CALCIUM 10.4 mg/dL (8.5-10.1); CHLORIDE 98 mmol/L (98-107)
[2019-08-30 04:57] LABS: ALANINE AMINOTRANSFERASE 38 U/L (12-78); ALKALINE PHOSPHATASE 181 U/L (45-117); BILIRUBIN,TOTAL 0.4 mg/dL (0.2-1.0); CREATININE 2.24 mg/dL (0.7-1.3); TOTAL PROTEIN 8.3 g/dL (6.4-8.2)
[2019-08-30] MEDS: INSULIN LISPRO 100 UNITS/ML, PEN SQ-INSULIN SCH ×4 (05:00→23:00)
[2019-08-30] MEDS ORDERED: CATHFLO-ALTEPLASE 2 MG/2 ML CATHFLUSH ONE (08:30)
[2019-08-30] MEDS ORDERED: LACTULOSE 20 GM/30 ML UDC PO PRN (09:00)
[2019-08-30] MEDS: FUROSEMIDE 40 MG/4 ML IV SCH ×2 (09:00→20:08)
[2019-08-30] MEDS ORDERED: VECURONIUM 10 MG ONE (10:26)
[2019-08-30] MEDS ORDERED: MIDAZOLAM 1 MG/ML, 5ML ONE (10:26)
[2019-08-30] MEDS ORDERED: FENTANYL PF 100 MCG/2ML ONE (10:26)
[2019-08-30] MEDS: SEVELAMER 2.4 GM POWD.PACK JT SCH ×3 (10:31→17:46)
[2019-08-30] MEDS: GABAPENTIN 100 MG CAPSULE PO SCH ×3 (10:31→20:19)
[2019-08-30] MEDS: MAGNESIUM OXIDE 400 MG TABLET PO SCH (10:31)
[2019-08-30] MEDS: MIDODRINE 5 MG TABLET PO SCH ×3 (10:31→20:19)
[2019-08-30] MEDS: BUPROPION 100 MG TABLET PO SCH ×2 (10:31→20:18)
[2019-08-30] MEDS: LACTOBACILLUS CHEW TABLET PO SCH ×3 (10:31→20:18)
[2019-08-30] MEDS: SODIUM CHLORIDE FLUSH 10ML SYR IVF SCH ×2 (10:32→20:11)
[2019-08-30] MEDS: DOCUSATE 50 MG/5 ML, 10ML UDC PO SCH ×2 (10:32→20:19)
[2019-08-30] MEDS: SENNA 176 MG/5 ML ORAL SOL PO SCH ×2 (10:33→20:19)
[2019-08-30] MEDS: HEPARIN 5,000 UNITS/ML, 1ML SQ SCH ×3 (10:57→20:07)
[2019-08-30] MEDS ORDERED: VECURONIUM 10 MG IVPush ONE (11:00)
[2019-08-30] MEDS ORDERED: FENTANYL PF 100 MCG/2ML IVPush ONE (11:00)
[2019-08-30] MEDS ORDERED: MIDAZOLAM 1 MG/ML, 5ML IVPush ONE (11:00)
[2019-08-30] MEDS: DARBEPOETIN 100 MCG/ML SQ SCH (12:14)
[2019-08-30] MEDS: OXYcodone 5 MG/5 ML ORAL.SOL UDC PO PRN ×2 (18:09→21:54)
[2019-08-30] MEDS: MICAFUNGIN 100 MG in SODIUM CHLORIDE 0.9% 100 ML IV SCH (20:13)
[2019-08-30] MEDS: SCOPOLAMINE PATCH, 1.5MG PATCH.TD72 TD SCH (20:21)
[2019-08-30] MEDS: TRAZODONE 100MG TABLET PO PRN (22:06)
[2019-08-31] MEDS: LORazepam INTENSOL 2 MG/ML PO PRN ×2 (00:08→22:31)
[2019-08-31] MEDS: ALBUTEROL/IPRATROPIUM 2.5MG/0.5MG, 3 ML INLINE SCH ×2 (02:08→06:55)
[2019-08-31 04:22] LABS: MEAN CORPUSCULAR HEMOGLOBIN 29.7 pg (27.5-34.5); MEAN CORPUSCULAR HGB CONC 33.1 g/dL (33.2-36.2); MEAN CORPUSCULAR VOLUME 89.8 fL (81-97); MEAN PLATELET VOLUME 7.8 fL (7.4-10.4); PLATELET COUNT 342 x10^3/uL (130-400); RED BLOOD COUNT 2.64 x10^6/uL (4.38-5.82); RED CELL DISTRIBUTION WIDTH 17.3 % (9.4-14.8)
[2019-08-31 04:37] LABS: ALANINE AMINOTRANSFERASE 35 U/L (12-78); ALBUMIN 2.6 g/dL (3.4-5.0); ALKALINE PHOSPHATASE 170 U/L (45-117); ANION GAP 15 mmol/L (5-15); BILIRUBIN,TOTAL 0.4 mg/dL (0.2-1.0); CALCIUM 10.4 mg/dL (8.5-10.1); CHLORIDE 95 mmol/L (98-107); CREATININE 2.94 mg/dL (0.7-1.3); TOTAL PROTEIN 7.6 g/dL (6.4-8.2)
[2019-08-31] MEDS: HEPARIN 5,000 UNITS/ML, 1ML SQ SCH ×3 (04:48→20:27)
[2019-08-31] MEDS: OXYcodone 5 MG/5 ML ORAL.SOL UDC PO PRN ×3 (04:49→20:33)
[2019-08-31 04:52] LABS: MD YES
[2019-08-31 04:55] LABS: ANISOCYTOSIS 1+; BAND#(MANUAL) 0.11 x10^3/uL; BANDS%(MANUAL) 1 % (0-7); EOS#(MANUAL) 0.11 x10^3/uL (0.0-0.4); EOS% (MANUAL) 1 % (1-7); LYMPH#(MANUAL) 2.62 x10^3/uL (1-3.4); LYMPHS% (MANUAL) 23 % (22-44); MONOS#(MANUAL) 1.03 x10^3/uL (0.3-2.7); MONOS% (MANUAL) 9 % (2-9); MYELOCYTES# (MANUAL) 0.11 x10^3/uL (0-0); MYELOCYTES% (MANUAL) 1 % (0-0); SEG#(MANUAL) 7.41 x10^3/uL (1.8-6.8); SEGS% (MANUAL) 65 % (42-75)
[2019-08-31 04:56] LABS: <PLATELET ESTIMATE> ADEQUATE; <PLT MORPHOLOGY> NORMAL PLT MORPH; POLYCHROMASIA 1+
[2019-08-31] MEDS: ONDANSETRON 2MG/ML, 2ML IVPush PRN ×3 (05:02→21:17)
[2019-08-31] MEDS: INSULIN LISPRO 100 UNITS/ML, PEN SQ-INSULIN SCH ×4 (05:05→21:16)
[2019-08-31] MEDS ORDERED: CATHFLO-ALTEPLASE 2 MG/2 ML CATHFLUSH ONE (08:30)
[2019-08-31] MEDS: FUROSEMIDE 40 MG/4 ML IV SCH ×2 (09:00→20:25)
[2019-08-31] MEDS: ALBUMIN HUMAN 25% 100 ML IV PRN (09:59)
[2019-08-31] MEDS: SODIUM CHLORIDE FLUSH 10ML SYR IVF SCH ×2 (10:17→20:34)
[2019-08-31] MEDS: SEVELAMER 2.4 GM POWD.PACK JT SCH ×3 (10:17→15:02)
[2019-08-31] MEDS: MIDODRINE 5 MG TABLET PO SCH ×3 (10:17→20:22)
[2019-08-31] MEDS: GABAPENTIN 100 MG CAPSULE PO SCH ×3 (10:17→20:25)
[2019-08-31] MEDS: LACTOBACILLUS CHEW TABLET PO SCH ×3 (10:17→20:24)
[2019-08-31] MEDS: DOCUSATE 50 MG/5 ML, 10ML UDC PO SCH ×2 (10:17→20:21)
[2019-08-31] MEDS: SENNA 176 MG/5 ML ORAL SOL PO SCH ×2 (10:17→20:21)
[2019-08-31] MEDS: BUPROPION 100 MG TABLET PO SCH ×2 (10:17→20:23)
[2019-08-31] MEDS: DULOXETINE 30 MG CAPSULE.DR PO SCH (10:18)
[2019-08-31] MEDS: MAGNESIUM OXIDE 400 MG TABLET PO SCH (10:18)
[2019-08-31] MEDS: FENTANYL 100 MCG PATCH TD SCH (10:38)
[2019-08-31] MEDS: METHYLNALTREXONE 12 MG/0.6 ML SYR SQ PRN (12:47)
[2019-08-31] MEDS ORDERED: ALBUTEROL/IPRATROPIUM 2.5MG/0.5MG, 3 ML INLINE SCH (15:00)
[2019-08-31] MEDS ORDERED: ALBUTEROL/IPRATROPIUM 2.5MG/0.5MG, 3 ML NPPB SCH (19:00)
[2019-08-31] MEDS: MICAFUNGIN 100 MG in SODIUM CHLORIDE 0.9% 100 ML IV SCH (20:25)
[2019-08-31] MEDS: ALBUTEROL/IPRATROPIUM 2.5MG/0.5MG, 3 ML NPPB SCH (20:39)
[2019-08-31] MEDS: TRAZODONE 100MG TABLET PO PRN (22:30)
[2019-09-01] MEDS: OXYcodone 5 MG/5 ML ORAL.SOL UDC PO PRN ×4 (02:19→21:03)
[2019-09-01] MEDS: ALBUTEROL/IPRATROPIUM 2.5MG/0.5MG, 3 ML NPPB SCH ×4 (02:24→21:00)
[2019-09-01] MEDS: HEPARIN 5,000 UNITS/ML, 1ML SQ SCH ×3 (04:07→20:18)
[2019-09-01] MEDS: INSULIN LISPRO 100 UNITS/ML, PEN SQ-INSULIN SCH ×4 (04:10→20:29)
[2019-09-01 04:23] LABS: MEAN CORPUSCULAR HEMOGLOBIN 29.2 pg (27.5-34.5); MEAN CORPUSCULAR VOLUME 88.5 fL (81-97); MEAN PLATELET VOLUME 7.2 fL (7.4-10.4); PLATELET COUNT 355 x10^3/uL (130-400); RED BLOOD COUNT 2.67 x10^6/uL (4.38-5.82); RED CELL DISTRIBUTION WIDTH 17.6 % (9.4-14.8)
[2019-09-01 04:32] LABS: MD YES
[2019-09-01 04:38] LABS: ALBUMIN 2.8 g/dL (3.4-5.0); ANION GAP 10 mmol/L (5-15); ANISOCYTOSIS 1+; CALCIUM 9.6 mg/dL (8.5-10.1); CHLORIDE 93 mmol/L (98-107); EOS#(MANUAL) 0.11 x10^3/uL (0.0-0.4); EOS% (MANUAL) 1 % (1-7); HYPOCHROMIA 1+; LYMPH#(MANUAL) 2.31 x10^3/uL (1-3.4); LYMPHS% (MANUAL) 21 % (22-44); METAMYELOCYTES# (MANUAL) 0.11 x10^3/uL (0-0); METAMYELOCYTES% (MANUAL) 1 % (0-1); MONOS#(MANUAL) 0.44 x10^3/uL (0.3-2.7); MONOS% (MANUAL) 4 % (2-9); POLYCHROMASIA 1+; SEG#(MANUAL) 8.03 x10^3/uL (1.8-6.8); SEGS% (MANUAL) 73 % (42-75)
[2019-09-01 04:39] LABS: <PLATELET ESTIMATE> ADEQUATE; <PLT MORPHOLOGY> NORMAL PLT MORPH
[2019-09-01 04:42] LABS: ALANINE AMINOTRANSFERASE 41 U/L (12-78); ALKALINE PHOSPHATASE 180 U/L (45-117); BILIRUBIN,TOTAL 0.4 mg/dL (0.2-1.0); CREATININE 2.06 mg/dL (0.7-1.3); TRIGLYCERIDES 408 mg/dL (50-200)
[2019-09-01] MEDS: SEVELAMER 2.4 GM POWD.PACK JT SCH ×3 (07:25→17:06)
[2019-09-01] MEDS: GABAPENTIN 100 MG CAPSULE PO SCH ×3 (07:25→20:22)
[2019-09-01] MEDS: BUPROPION 100 MG TABLET PO SCH ×2 (07:25→20:22)
[2019-09-01] MEDS: DOCUSATE 50 MG/5 ML, 10ML UDC PO SCH ×2 (07:25→20:25)
[2019-09-01] MEDS: DULOXETINE 30 MG CAPSULE.DR PO SCH (07:25)
[2019-09-01] MEDS: METHYLNALTREXONE 12 MG/0.6 ML SYR SQ PRN (07:28)
[2019-09-01] MEDS: ONDANSETRON 2MG/ML, 2ML IVPush PRN (07:38)
[2019-09-01] MEDS: SODIUM CHLORIDE FLUSH 10ML SYR IVF SCH ×2 (07:40→20:21)
[2019-09-01] MEDS: FUROSEMIDE 40 MG/4 ML IV SCH ×2 (07:40→20:20)
[2019-09-01] MEDS: LACTOBACILLUS CHEW TABLET PO SCH ×3 (07:43→20:21)
[2019-09-01] MEDS: MIDODRINE 5 MG TABLET PO SCH ×3 (07:43→20:22)
[2019-09-01] MEDS: MAGNESIUM OXIDE 400 MG TABLET PO SCH (07:43)
[2019-09-01] MEDS: SENNA 176 MG/5 ML ORAL SOL PO SCH ×3 (07:46→20:25)
[2019-09-01] MEDS: ONDANSETRON 2MG/ML, 2ML IVPush SCH ×3 (09:00→20:21)
[2019-09-01] MEDS: HYDROmorphone 2 MG/ML, 1ML IVPush PRN (09:22)
--- NOTE | 2019-09-01 13:12 | NUR ---
REC CONTINUED NPO STATUS WITH ONGOING ALTERNATIVE MEANS OF NUTRITION/HYDRATION. SINGLE ICE CHIPS OK; ORANGE SHEET POSTED AT BEDSIDE WITH DIET REC AND SWALLOW STRATEGIES. Addendum: 09/01/19 at 1313 by Erika FRANCO Amended: Links added.
[2019-09-01] MEDS: MICAFUNGIN 100 MG in SODIUM CHLORIDE 0.9% 100 ML IV SCH (20:21)
[2019-09-02] MEDS: OXYcodone 5 MG/5 ML ORAL.SOL UDC PO PRN ×5 (01:41→21:57)
[2019-09-02] MEDS: ONDANSETRON 2MG/ML, 2ML IVPush SCH ×4 (01:55→20:56)
[2019-09-02] MEDS: ALBUTEROL/IPRATROPIUM 2.5MG/0.5MG, 3 ML NPPB SCH ×4 (02:59→21:20)
[2019-09-02] MEDS: INSULIN LISPRO 100 UNITS/ML, PEN SQ-INSULIN SCH ×4 (03:11→21:00)
[2019-09-02] MEDS: HEPARIN 5,000 UNITS/ML, 1ML SQ SCH ×3 (04:29→20:00)
[2019-09-02 05:20] LABS: MEAN CORPUSCULAR HEMOGLOBIN 30.1 pg (27.5-34.5); MEAN CORPUSCULAR VOLUME 88.6 fL (81-97); MEAN PLATELET VOLUME 7.8 fL (7.4-10.4); PLATELET COUNT 331 x10^3/uL (130-400); RED BLOOD COUNT 2.54 x10^6/uL (4.38-5.82); RED CELL DISTRIBUTION WIDTH 17.2 % (9.4-14.8)
[2019-09-02 05:23] LABS: ALBUMIN 2.6 g/dL (3.4-5.0); ANION GAP 11 mmol/L (5-15); CALCIUM 9.9 mg/dL (8.5-10.1); CHLORIDE 92 mmol/L (98-107); CREATININE 2.71 mg/dL (0.7-1.3)
[2019-09-02 05:48] LABS: MD YES
[2019-09-02 05:52] LABS: ANISOCYTOSIS 1+; EOS#(MANUAL) 0.47 x10^3/uL (0.0-0.4); EOS% (MANUAL) 4 % (1-7); LYMPH#(MANUAL) 2.46 x10^3/uL (1-3.4); LYMPHS% (MANUAL) 21 % (22-44); MONOS#(MANUAL) 0.59 x10^3/uL (0.3-2.7); MONOS% (MANUAL) 5 % (2-9); MYELOCYTES# (MANUAL) 0.12 x10^3/uL (0-0); MYELOCYTES% (MANUAL) 1 % (0-0); SEG#(MANUAL) 8.07 x10^3/uL (1.8-6.8); SEGS% (MANUAL) 69 % (42-75)
[2019-09-02 05:53] LABS: <PLATELET ESTIMATE> ADEQUATE; <PLT MORPHOLOGY> NORMAL PLT MORPH; POLYCHROMASIA 1+
[2019-09-02 05:59] LABS: MICROCYTOSIS 1+
[2019-09-02] MEDS: POLYETHYLENE GLYCOL 17 GM PACKET PO PRN (08:34)
[2019-09-02] MEDS: MIDODRINE 5 MG TABLET PO SCH ×3 (09:40→20:58)
[2019-09-02] MEDS: DULOXETINE 30 MG CAPSULE.DR PO SCH (09:40)
[2019-09-02] MEDS: BUPROPION 100 MG TABLET PO SCH ×2 (09:40→20:59)
[2019-09-02] MEDS: FUROSEMIDE 40 MG/4 ML IV SCH ×2 (09:41→20:56)
[2019-09-02] MEDS: SEVELAMER 2.4 GM POWD.PACK JT SCH ×3 (09:41→16:48)
[2019-09-02] MEDS: MAGNESIUM OXIDE 400 MG TABLET PO SCH (09:41)
[2019-09-02] MEDS: DOCUSATE 50 MG/5 ML, 10ML UDC PO SCH ×2 (09:41→20:57)
[2019-09-02] MEDS: LACTOBACILLUS CHEW TABLET PO SCH ×3 (09:41→20:57)
[2019-09-02] MEDS: GABAPENTIN 100 MG CAPSULE PO SCH ×3 (09:41→20:57)
[2019-09-02] MEDS: SENNA 176 MG/5 ML ORAL SOL PO SCH ×2 (09:43→20:58)
[2019-09-02] MEDS: SODIUM CHLORIDE FLUSH 10ML SYR IVF SCH ×2 (09:44→20:53)
[2019-09-02] MEDS ORDERED: LORazepam 1MG TABLET ONE (12:40)
[2019-09-02] MEDS: LORazepam 1MG TABLET PO PRN (12:49)
[2019-09-02] MEDS ORDERED: MICAFUNGIN 100 MG in SODIUM CHLORIDE 0.9% 100 ML IV SCH (16:30)
[2019-09-02] MEDS: SCOPOLAMINE PATCH, 1.5MG PATCH.TD72 TD SCH (21:56)
[2019-09-03] MEDS: ALBUTEROL/IPRATROPIUM 2.5MG/0.5MG, 3 ML NPPB SCH ×4 (02:45→20:50)
[2019-09-03] MEDS: INSULIN LISPRO 100 UNITS/ML, PEN SQ-INSULIN SCH ×4 (03:00→21:00)
[2019-09-03] MEDS: ONDANSETRON 2MG/ML, 2ML IVPush SCH ×4 (03:05→21:07)
[2019-09-03] MEDS: OXYcodone 5 MG/5 ML ORAL.SOL UDC PO PRN ×4 (03:06→21:08)
[2019-09-03] MEDS: LORazepam 1MG TABLET PO PRN ×2 (03:36→17:29)
[2019-09-03] MEDS: HEPARIN 5,000 UNITS/ML, 1ML SQ SCH ×3 (04:37→21:07)
[2019-09-03 06:02] LABS: BASOPHILS # (AUTO) 0.05 x10^3/uL (0-0.1); BASOPHILS % (AUTO) 0 % (0-1); EOSINOPHILS # (AUTO) 0.44 x10^3/uL (0-0.4); EOSINOPHILS % (AUTO) 4 % (1-7); LYMPHOCYTES # (AUTO) 1.31 x10^3/uL (1-3.4); LYMPHOCYTES % (AUTO) 12 % (22-44); MD NO; MEAN CORPUSCULAR HGB CONC 33.2 g/dL (33.2-36.2); MEAN CORPUSCULAR VOLUME 87.5 fL (81-97); MEAN PLATELET VOLUME 7.2 fL (7.4-10.4); MONOCYTES # (AUTO) 0.84 x10^3/uL (0.2-0.8); MONOCYTES % (AUTO) 8 % (2-9); NEUTROPHILS # (AUTO) 8.46 x10^3/uL (1.8-6.8); NEUTROPHILS % (AUTO) 76 % (42-75); PLATELET COUNT 346 x10^3/uL (130-400); RED BLOOD COUNT 2.62 x10^6/uL (4.38-5.82); RED CELL DISTRIBUTION WIDTH 17.5 % (9.4-14.8)
[2019-09-03 06:13] LABS: ANION GAP 10 mmol/L (5-15); CALCIUM 9.9 mg/dL (8.5-10.1); CHLORIDE 94 mmol/L (98-107); CREATININE 2.16 mg/dL (0.7-1.3)
[2019-09-03] MEDS: MIDODRINE 5 MG TABLET PO SCH ×3 (09:00→21:00)
[2019-09-03] MEDS: ACETAMINOPHEN 650 MG/20.3 ML UDC PO PRN ×2 (09:02→14:35)
[2019-09-03] MEDS: DOCUSATE 50 MG/5 ML, 10ML UDC PO SCH ×2 (09:02→21:08)
[2019-09-03] MEDS: SENNA 176 MG/5 ML ORAL SOL PO SCH ×2 (09:03→21:09)
[2019-09-03] MEDS: LACTOBACILLUS CHEW TABLET PO SCH ×3 (09:04→21:08)
[2019-09-03] MEDS: FUROSEMIDE 40 MG/4 ML IV SCH ×2 (09:04→21:07)
[2019-09-03] MEDS: DULOXETINE 30 MG CAPSULE.DR PO SCH (09:04)
[2019-09-03] MEDS: SEVELAMER 2.4 GM POWD.PACK JT SCH ×3 (09:04→17:29)
[2019-09-03] MEDS: BUPROPION 100 MG TABLET PO SCH ×2 (09:04→21:08)
[2019-09-03] MEDS: MAGNESIUM OXIDE 400 MG TABLET PO SCH (09:04)
[2019-09-03] MEDS: METHYLNALTREXONE 12 MG/0.6 ML SYR SQ PRN (09:04)
[2019-09-03] MEDS: GABAPENTIN 100 MG CAPSULE PO SCH ×3 (09:05→21:08)
[2019-09-03] MEDS: SODIUM CHLORIDE FLUSH 10ML SYR IVF SCH ×2 (09:07→21:09)
[2019-09-03] MEDS: FENTANYL 100 MCG PATCH TD SCH (12:19)
[2019-09-03] MEDS: LACTULOSE 20 GM/30 ML UDC PO SCH (21:09)
[2019-09-03] MEDS ORDERED: DARBEPOETIN 100 MCG/ML SQ SCH (21:56)
[2019-09-04] MEDS: ALBUTEROL/IPRATROPIUM 2.5MG/0.5MG, 3 ML NPPB SCH ×4 (01:48→20:20)
[2019-09-04] MEDS: INSULIN LISPRO 100 UNITS/ML, PEN SQ-INSULIN SCH ×4 (03:00→21:35)
[2019-09-04] MEDS: ONDANSETRON 2MG/ML, 2ML IVPush SCH ×4 (04:04→21:13)
[2019-09-04] MEDS: HEPARIN 5,000 UNITS/ML, 1ML SQ SCH ×3 (04:04→20:09)
[2019-09-04] MEDS: OXYcodone 5 MG/5 ML ORAL.SOL UDC PO PRN ×3 (04:20→17:11)
[2019-09-04] MEDS: SENNA 176 MG/5 ML ORAL SOL PO SCH ×2 (09:00→21:00)
[2019-09-04] MEDS: SODIUM CHLORIDE FLUSH 10ML SYR IVF SCH ×2 (09:00→21:13)
[2019-09-04] MEDS ORDERED: METHYLNALTREXONE 12 MG/0.6 ML SYR SQ SCH (09:00)
[2019-09-04] MEDS: SEVELAMER 2.4 GM POWD.PACK JT SCH ×3 (09:38→16:11)
[2019-09-04] MEDS: LACTULOSE 20 GM/30 ML UDC PO SCH ×2 (09:39→21:14)
[2019-09-04] MEDS: FUROSEMIDE 40 MG/4 ML IV SCH ×2 (09:39→21:09)
[2019-09-04] MEDS: GABAPENTIN 100 MG CAPSULE PO SCH ×3 (09:40→21:14)
[2019-09-04] MEDS: BUPROPION 100 MG TABLET PO SCH ×2 (09:40→21:14)
[2019-09-04] MEDS: MIDODRINE 5 MG TABLET PO SCH ×3 (09:40→20:58)
[2019-09-04] MEDS: LACTOBACILLUS CHEW TABLET PO SCH ×3 (09:40→21:14)
[2019-09-04] MEDS: DULOXETINE 30 MG CAPSULE.DR PO SCH (09:40)
[2019-09-04] MEDS: MAGNESIUM OXIDE 400 MG TABLET PO SCH (09:40)
[2019-09-04] MEDS: DOCUSATE 50 MG/5 ML, 10ML UDC PO SCH ×2 (09:41→21:13)
[2019-09-04] MEDS: HYDROmorphone 2 MG/ML, 1ML IVPush PRN (11:42)
[2019-09-04 15:08] LABS: MEAN CORPUSCULAR HEMOGLOBIN 28.9 pg (27.5-34.5); MEAN CORPUSCULAR HGB CONC 32.9 g/dL (33.2-36.2); MEAN CORPUSCULAR VOLUME 87.9 fL (81-97); MEAN PLATELET VOLUME 7.5 fL (7.4-10.4); PLATELET COUNT 385 x10^3/uL (130-400); RED BLOOD COUNT 2.71 x10^6/uL (4.38-5.82)
[2019-09-04 15:23] LABS: ALANINE AMINOTRANSFERASE 43 U/L (12-78); ALBUMIN 2.7 g/dL (3.4-5.0); ANION GAP 14 mmol/L (5-15); CALCIUM 10.7 mg/dL (8.5-10.1); CHLORIDE 93 mmol/L (98-107)
[2019-09-04 15:25] LABS: ALKALINE PHOSPHATASE 214 U/L (45-117); BILIRUBIN,TOTAL 0.3 mg/dL (0.2-1.0); CREATININE 2.99 mg/dL (0.7-1.3); TOTAL PROTEIN 7.5 g/dL (6.4-8.2)
[2019-09-04 15:31] LABS: BASOPHILS # (AUTO) 0.06 x10^3/uL (0-0.1); BASOPHILS % (AUTO) 1 % (0-1); EOSINOPHILS # (AUTO) 0.36 x10^3/uL (0-0.4); EOSINOPHILS % (AUTO) 3 % (1-7); LYMPHOCYTES # (AUTO) 1.52 x10^3/uL (1-3.4); LYMPHOCYTES % (AUTO) 12 % (22-44); MD NO; MONOCYTES % (AUTO) 8 % (2-9); NEUTROPHILS # (AUTO) 9.84 x10^3/uL (1.8-6.8); NEUTROPHILS % (AUTO) 77 % (42-75)
[2019-09-05] MEDS: ALBUTEROL/IPRATROPIUM 2.5MG/0.5MG, 3 ML NPPB SCH ×4 (01:37→21:00)
[2019-09-05] MEDS: ONDANSETRON 2MG/ML, 2ML IVPush SCH ×4 (02:40→21:34)
[2019-09-05] MEDS: INSULIN LISPRO 100 UNITS/ML, PEN SQ-INSULIN SCH ×4 (02:54→22:12)
[2019-09-05] MEDS: HEPARIN 5,000 UNITS/ML, 1ML SQ SCH ×3 (04:48→21:34)
[2019-09-05] MEDS: LACTULOSE 20 GM/30 ML UDC PO SCH ×2 (08:49→21:33)
[2019-09-05] MEDS: DULOXETINE 30 MG CAPSULE.DR PO SCH (09:30)
[2019-09-05] MEDS: FUROSEMIDE 40 MG/4 ML IV SCH ×2 (09:30→21:34)
[2019-09-05] MEDS: SODIUM CHLORIDE FLUSH 10ML SYR IVF SCH ×2 (09:30→21:00)
[2019-09-05] MEDS: MAGNESIUM OXIDE 400 MG TABLET PO SCH (09:30)
[2019-09-05] MEDS: GABAPENTIN 100 MG CAPSULE PO SCH ×3 (09:30→21:35)
[2019-09-05] MEDS: MIDODRINE 5 MG TABLET PO SCH ×3 (09:30→21:35)
[2019-09-05] MEDS: BUPROPION 100 MG TABLET PO SCH ×2 (09:30→21:35)
[2019-09-05] MEDS: LACTOBACILLUS CHEW TABLET PO SCH ×3 (09:30→21:35)
[2019-09-05] MEDS: SEVELAMER 2.4 GM POWD.PACK JT SCH ×3 (09:30→21:35)
[2019-09-05] MEDS: SENNA 176 MG/5 ML ORAL SOL PO SCH ×2 (09:49→21:36)
[2019-09-05] MEDS: DOCUSATE 50 MG/5 ML, 10ML UDC PO SCH ×2 (09:49→21:35)
[2019-09-05] MEDS: METOCLOPRAMIDE 5 MG/ML, 2ML IV SCH ×2 (09:49→16:01)
[2019-09-05] MEDS: OXYcodone 5 MG/5 ML ORAL.SOL UDC PO PRN ×2 (09:50→21:33)
[2019-09-05 14:17] LABS: BASOPHILS # (AUTO) 0.08 x10^3/uL (0-0.1); BASOPHILS % (AUTO) 1 % (0-1); EOSINOPHILS # (AUTO) 0.28 x10^3/uL (0-0.4); EOSINOPHILS % (AUTO) 3 % (1-7); HCT (SEDRATE) 25.4 % (39.2-51.8); LYMPHOCYTES % (AUTO) 13 % (22-44); MD NO; MEAN CORPUSCULAR HEMOGLOBIN 29.6 pg (27.5-34.5); MEAN CORPUSCULAR HGB CONC 32.8 g/dL (33.2-36.2); MEAN CORPUSCULAR VOLUME 90.2 fL (81-97); MEAN PLATELET VOLUME 7.3 fL (7.4-10.4); MONOCYTES % (AUTO) 5 % (2-9); NEUTROPHILS # (AUTO) 8.69 x10^3/uL (1.8-6.8); NEUTROPHILS % (AUTO) 79 % (42-75); PLATELET COUNT 393 x10^3/uL (130-400); RED BLOOD COUNT 2.82 x10^6/uL (4.38-5.82); RED CELL DISTRIBUTION WIDTH 17.3 % (9.4-14.8)
[2019-09-05 14:23] LABS: ANION GAP 8 mmol/L (5-15); CALCIUM 9.7 mg/dL (8.5-10.1); CHLORIDE 96 mmol/L (98-107); CREATININE 1.96 mg/dL (0.7-1.3)
[2019-09-05 15:27] LABS: SEDIMENTATION RATE > 120 mm/hr (0-10)
[2019-09-05] MEDS: METHYLNALTREXONE 12 MG/0.6 ML SYR SQ SCH (22:07)
[2019-09-05] MEDS: SCOPOLAMINE PATCH, 1.5MG PATCH.TD72 TD SCH (22:07)
[2019-09-06] MEDS: ALBUTEROL/IPRATROPIUM 2.5MG/0.5MG, 3 ML NPPB SCH ×4 (02:53→21:12)
[2019-09-06] MEDS: INSULIN LISPRO 100 UNITS/ML, PEN SQ-INSULIN SCH ×4 (03:00→20:54)
[2019-09-06] MEDS: HEPARIN 5,000 UNITS/ML, 1ML SQ SCH ×3 (05:07→19:33)
[2019-09-06] MEDS: METOCLOPRAMIDE 5 MG/ML, 2ML IV SCH ×3 (05:07→15:53)
[2019-09-06] MEDS: ONDANSETRON 2MG/ML, 2ML IVPush SCH ×4 (05:07→20:51)
[2019-09-06 08:12] LABS: BASOPHILS # (AUTO) 0.06 x10^3/uL (0-0.1); BASOPHILS % (AUTO) 0 % (0-1); EOSINOPHILS # (AUTO) 0.34 x10^3/uL (0-0.4); EOSINOPHILS % (AUTO) 3 % (1-7); LYMPHOCYTES % (AUTO) 16 % (22-44); MD NO; MEAN CORPUSCULAR HEMOGLOBIN 29.3 pg (27.5-34.5); MEAN CORPUSCULAR HGB CONC 33.2 g/dL (33.2-36.2); MEAN CORPUSCULAR VOLUME 88.4 fL (81-97); MEAN PLATELET VOLUME 6.7 fL (7.4-10.4); MONOCYTES # (AUTO) 1.27 x10^3/uL (0.2-0.8); MONOCYTES % (AUTO) 10 % (2-9); NEUTROPHILS # (AUTO) 9.15 x10^3/uL (1.8-6.8); NEUTROPHILS % (AUTO) 71 % (42-75); PLATELET COUNT 388 x10^3/uL (130-400); RED BLOOD COUNT 2.98 x10^6/uL (4.38-5.82); RED CELL DISTRIBUTION WIDTH 17.4 % (9.4-14.8)
[2019-09-06] MEDS: LACTULOSE 20 GM/30 ML UDC PO SCH ×2 (08:20→20:52)
[2019-09-06] MEDS: DOCUSATE 50 MG/5 ML, 10ML UDC PO SCH ×2 (08:20→20:51)
[2019-09-06] MEDS: DULOXETINE 30 MG CAPSULE.DR PO SCH (08:21)
[2019-09-06] MEDS: GABAPENTIN 100 MG CAPSULE PO SCH ×3 (08:21→20:52)
[2019-09-06] MEDS: FUROSEMIDE 40 MG/4 ML IV SCH ×2 (08:21→20:51)
[2019-09-06] MEDS: SEVELAMER 2.4 GM POWD.PACK JT SCH ×3 (08:21→15:43)
[2019-09-06] MEDS: BUPROPION 100 MG TABLET PO SCH ×2 (08:21→20:53)
[2019-09-06] MEDS: MAGNESIUM OXIDE 400 MG TABLET PO SCH (08:21)
[2019-09-06] MEDS: LACTOBACILLUS CHEW TABLET PO SCH ×3 (08:21→20:52)
[2019-09-06] MEDS: SODIUM CHLORIDE FLUSH 10ML SYR IVF SCH ×2 (08:22→20:51)
[2019-09-06 08:23] LABS: ALBUMIN 2.7 g/dL (3.4-5.0); ANION GAP 10 mmol/L (5-15); CALCIUM 10.2 mg/dL (8.5-10.1); CHLORIDE 94 mmol/L (98-107); CREATININE 2.06 mg/dL (0.7-1.3)
[2019-09-06] MEDS: MIDODRINE 5 MG TABLET PO SCH ×3 (08:30→20:52)
[2019-09-06] MEDS: SENNA 176 MG/5 ML ORAL SOL PO SCH ×2 (08:30→20:53)
[2019-09-06] MEDS: FENTANYL 100 MCG PATCH TD SCH (11:34)
[2019-09-06] MEDS: HYDROmorphone 2 MG/ML, 1ML IVPush PRN (13:52)
[2019-09-06] MEDS: METHYLNALTREXONE 12 MG/0.6 ML SYR SQ SCH (20:54)
[2019-09-06] MEDS: INSULIN GLARGINE 100 UNITS/ML, PEN SQ-INSULIN SCH (20:55)
[2019-09-06] MEDS ORDERED: DARBEPOETIN 100 MCG/ML SQ SCH (21:00)
[2019-09-07] MEDS: METOCLOPRAMIDE 5 MG/ML, 2ML IV SCH ×3 (01:25→17:21)
[2019-09-07] MEDS: OXYcodone 5 MG/5 ML ORAL.SOL UDC PO PRN ×2 (01:34→05:34)
[2019-09-07] MEDS: ALBUTEROL/IPRATROPIUM 2.5MG/0.5MG, 3 ML NPPB SCH ×4 (03:00→20:37)
[2019-09-07] MEDS: INSULIN LISPRO 100 UNITS/ML, PEN SQ-INSULIN SCH ×4 (03:00→21:00)
[2019-09-07] MEDS: ONDANSETRON 2MG/ML, 2ML IVPush SCH ×4 (03:07→19:48)
[2019-09-07] MEDS: HEPARIN 5,000 UNITS/ML, 1ML SQ SCH ×3 (04:01→19:43)
[2019-09-07] MEDS: DOCUSATE 50 MG/5 ML, 10ML UDC PO SCH ×2 (07:22→20:55)
[2019-09-07] MEDS: SENNA 176 MG/5 ML ORAL SOL PO SCH ×2 (07:23→20:59)
[2019-09-07] MEDS: LACTULOSE 20 GM/30 ML UDC PO SCH ×2 (07:25→20:55)
[2019-09-07] MEDS: FUROSEMIDE 40 MG/4 ML IV SCH ×2 (07:58→20:55)
[2019-09-07] MEDS: GABAPENTIN 100 MG CAPSULE PO SCH ×3 (07:58→20:56)
[2019-09-07] MEDS: DULOXETINE 30 MG CAPSULE.DR PO SCH (07:58)
[2019-09-07] MEDS: BUPROPION 100 MG TABLET PO SCH ×2 (07:58→20:56)
[2019-09-07] MEDS: SEVELAMER 2.4 GM POWD.PACK JT SCH ×3 (08:12→17:20)
[2019-09-07] MEDS: SODIUM CHLORIDE FLUSH 10ML SYR IVF SCH ×2 (08:12→19:49)
[2019-09-07] MEDS: MAGNESIUM OXIDE 400 MG TABLET PO SCH (08:21)
[2019-09-07] MEDS: FAMOTIDINE 20 MG/2 ML IVPush SCH ×2 (08:21→20:55)
[2019-09-07] MEDS: MIDODRINE 5 MG TABLET PO SCH ×3 (08:21→20:56)
[2019-09-07] MEDS: INSULIN GLARGINE 100 UNITS/ML, PEN SQ-INSULIN SCH ×2 (08:22→21:03)
[2019-09-07 13:13] LABS: BASOPHILS # (AUTO) 0.05 x10^3/uL (0-0.1); BASOPHILS % (AUTO) 0 % (0-1); EOSINOPHILS # (AUTO) 0.69 x10^3/uL (0-0.4); EOSINOPHILS % (AUTO) 5 % (1-7); LYMPHOCYTES # (AUTO) 1.66 x10^3/uL (1-3.4); LYMPHOCYTES % (AUTO) 13 % (22-44); MD NO; MEAN CORPUSCULAR HEMOGLOBIN 29.6 pg (27.5-34.5); MEAN CORPUSCULAR HGB CONC 33.5 g/dL (33.2-36.2); MEAN CORPUSCULAR VOLUME 88.4 fL (81-97); MEAN PLATELET VOLUME 6.9 fL (7.4-10.4); MONOCYTES # (AUTO) 0.92 x10^3/uL (0.2-0.8); MONOCYTES % (AUTO) 7 % (2-9); NEUTROPHILS # (AUTO) 9.52 x10^3/uL (1.8-6.8); NEUTROPHILS % (AUTO) 74 % (42-75); PLATELET COUNT 393 x10^3/uL (130-400); RED BLOOD COUNT 3.08 x10^6/uL (4.38-5.82); RED CELL DISTRIBUTION WIDTH 16.8 % (9.4-14.8)
[2019-09-07 13:17] LABS: CHLORIDE 95 mmol/L (98-107)
[2019-09-07 13:22] LABS: ALBUMIN 2.9 g/dL (3.4-5.0); ANION GAP 10 mmol/L (5-15); CALCIUM 9.9 mg/dL (8.5-10.1); CREATININE 1.44 mg/dL (0.7-1.3)
[2019-09-07] MEDS: METHYLNALTREXONE 12 MG/0.6 ML SYR SQ SCH (20:58)
[2019-09-07] MEDS: TRAZODONE 100MG TABLET PO PRN (23:00)
[2019-09-08] MEDS: METOCLOPRAMIDE 5 MG/ML, 2ML IV SCH ×3 (01:21→18:28)
[2019-09-08] MEDS: OXYcodone 5 MG/5 ML ORAL.SOL UDC PO PRN ×3 (02:22→15:00)
[2019-09-08] MEDS: LORazepam 1MG TABLET PO PRN (02:22)
[2019-09-08] MEDS: INSULIN LISPRO 100 UNITS/ML, PEN SQ-INSULIN SCH ×4 (02:48→20:58)
[2019-09-08] MEDS: ONDANSETRON 2MG/ML, 2ML IVPush SCH ×4 (02:49→20:59)
[2019-09-08] MEDS: ALBUTEROL/IPRATROPIUM 2.5MG/0.5MG, 3 ML NPPB SCH ×3 (03:19→20:37)
[2019-09-08] MEDS: HEPARIN 5,000 UNITS/ML, 1ML SQ SCH ×3 (04:17→19:58)
[2019-09-08] MEDS ORDERED: SILVER NITRATE STICK TP PRN (07:00)
[2019-09-08] MEDS: SEVELAMER 2.4 GM POWD.PACK JT SCH ×3 (09:01→18:28)
[2019-09-08] MEDS: FAMOTIDINE 20 MG/2 ML IVPush SCH ×2 (09:02→20:59)
[2019-09-08] MEDS: FUROSEMIDE 40 MG/4 ML IV SCH ×2 (09:02→21:00)
[2019-09-08] MEDS: MAGNESIUM OXIDE 400 MG TABLET PO SCH (09:04)
[2019-09-08] MEDS: GABAPENTIN 100 MG CAPSULE PO SCH ×3 (09:04→21:01)
[2019-09-08] MEDS: MIDODRINE 5 MG TABLET PO SCH ×3 (09:04→20:59)
[2019-09-08] MEDS: BUPROPION 100 MG TABLET PO SCH ×2 (09:04→20:59)
[2019-09-08] MEDS: DULOXETINE 30 MG CAPSULE.DR PO SCH (09:04)
[2019-09-08] MEDS: DOCUSATE 50 MG/5 ML, 10ML UDC PO SCH ×2 (09:05→21:00)
[2019-09-08] MEDS: LACTULOSE 20 GM/30 ML UDC PO SCH ×2 (09:05→20:59)
[2019-09-08] MEDS: SENNA 176 MG/5 ML ORAL SOL PO SCH ×2 (09:06→21:00)
[2019-09-08] MEDS: ACETAMINOPHEN 650 MG/20.3 ML UDC PO PRN ×2 (09:06→15:00)
[2019-09-08] MEDS: SODIUM CHLORIDE FLUSH 10ML SYR IVF SCH ×2 (09:07→21:00)
[2019-09-08] MEDS: HYDROmorphone 2 MG/ML, 1ML IVPush PRN ×2 (10:52→19:58)
[2019-09-08] MEDS: INSULIN GLARGINE 100 UNITS/ML, PEN SQ-INSULIN SCH ×2 (10:52→20:58)
[2019-09-08 19:00] VITALS: BP 111/76
[2019-09-08] MEDS: METHYLNALTREXONE 12 MG/0.6 ML SYR SQ SCH (21:01)
[2019-09-08] MEDS: SCOPOLAMINE PATCH, 1.5MG PATCH.TD72 TD SCH (21:16)
[2019-09-09] MEDS: METOCLOPRAMIDE 5 MG/ML, 2ML IV SCH ×3 (01:27→16:02)
[2019-09-09] MEDS: INSULIN LISPRO 100 UNITS/ML, PEN SQ-INSULIN SCH ×4 (03:00→22:35)
[2019-09-09] MEDS: ALBUTEROL/IPRATROPIUM 2.5MG/0.5MG, 3 ML NPPB SCH ×4 (03:00→19:41)
[2019-09-09] MEDS: ONDANSETRON 2MG/ML, 2ML IVPush SCH ×4 (03:02→21:54)
[2019-09-09] MEDS: HEPARIN 5,000 UNITS/ML, 1ML SQ SCH ×3 (03:47→21:46)
[2019-09-09] MEDS: LACTULOSE 20 GM/30 ML UDC PO SCH ×2 (09:00→22:10)
[2019-09-09] MEDS: SENNA 176 MG/5 ML ORAL SOL PO SCH ×2 (09:00→22:11)
[2019-09-09] MEDS: SEVELAMER 2.4 GM POWD.PACK JT SCH ×3 (10:11→17:00)
[2019-09-09] MEDS: MIDODRINE 5 MG TABLET PO SCH ×3 (10:11→22:11)
[2019-09-09] MEDS: BUPROPION 100 MG TABLET PO SCH ×2 (10:11→22:11)
[2019-09-09] MEDS: DULOXETINE 30 MG CAPSULE.DR PO SCH (10:11)
[2019-09-09] MEDS: GABAPENTIN 100 MG CAPSULE PO SCH ×3 (10:12→22:11)
[2019-09-09] MEDS: DOCUSATE 50 MG/5 ML, 10ML UDC PO SCH ×2 (10:12→22:10)
[2019-09-09] MEDS: FAMOTIDINE 20 MG/2 ML IVPush SCH ×2 (10:12→21:51)
[2019-09-09] MEDS: MAGNESIUM OXIDE 400 MG TABLET PO SCH (10:12)
[2019-09-09] MEDS: FUROSEMIDE 40 MG/4 ML IV SCH ×2 (10:13→21:57)
[2019-09-09] MEDS: INSULIN GLARGINE 100 UNITS/ML, PEN SQ-INSULIN SCH ×2 (10:17→22:35)
[2019-09-09] MEDS: SODIUM CHLORIDE FLUSH 10ML SYR IVF SCH ×2 (10:18→21:57)
[2019-09-09] MEDS: FENTANYL 100 MCG PATCH TD SCH (13:12)
[2019-09-09 17:16] LABS: BASOPHILS # (AUTO) 0.17 x10^3/uL (0-0.1); BASOPHILS % (AUTO) 1 % (0-1); EOSINOPHILS # (AUTO) 0.64 x10^3/uL (0-0.4); EOSINOPHILS % (AUTO) 5 % (1-7); LYMPHOCYTES # (AUTO) 1.65 x10^3/uL (1-3.4); LYMPHOCYTES % (AUTO) 14 % (22-44); MD NO; MEAN CORPUSCULAR HEMOGLOBIN 29.5 pg (27.5-34.5); MEAN CORPUSCULAR HGB CONC 32.7 g/dL (33.2-36.2); MONOCYTES # (AUTO) 1.01 x10^3/uL (0.2-0.8); MONOCYTES % (AUTO) 8 % (2-9); NEUTROPHILS # (AUTO) 8.74 x10^3/uL (1.8-6.8); NEUTROPHILS % (AUTO) 72 % (42-75); PLATELET COUNT 368 x10^3/uL (130-400); RED BLOOD COUNT 2.73 x10^6/uL (4.38-5.82)
[2019-09-09 17:26] LABS: ALBUMIN 2.6 g/dL (3.4-5.0); ANION GAP 12 mmol/L (5-15); CALCIUM 10.2 mg/dL (8.5-10.1); CHLORIDE 91 mmol/L (98-107); CREATININE 3.05 mg/dL (0.7-1.3)
[2019-09-09] MEDS ORDERED: LORazepam 2 MG/ML, 1ML IVPush ONE (17:30)
[2019-09-09] MEDS: METHYLNALTREXONE 12 MG/0.6 ML SYR SQ SCH (21:50)
[2019-09-09] MEDS: OXYcodone 5 MG/5 ML ORAL.SOL UDC PO PRN (22:10)
[2019-09-10] MEDS: METOCLOPRAMIDE 5 MG/ML, 2ML IV SCH ×3 (01:47→17:37)
[2019-09-10] MEDS: ALBUTEROL/IPRATROPIUM 2.5MG/0.5MG, 3 ML NPPB SCH ×4 (02:48→21:15)
[2019-09-10] MEDS: INSULIN LISPRO 100 UNITS/ML, PEN SQ-INSULIN SCH ×4 (02:52→21:00)
[2019-09-10] MEDS: OXYcodone 5 MG/5 ML ORAL.SOL UDC PO PRN ×3 (02:57→15:37)
[2019-09-10 04:00] VITALS: BP 119/75
[2019-09-10] MEDS: ONDANSETRON 2MG/ML, 2ML IVPush SCH ×4 (06:25→23:56)
[2019-09-10] MEDS: HEPARIN 5,000 UNITS/ML, 1ML SQ SCH ×3 (06:26→21:11)
[2019-09-10] MEDS: FAMOTIDINE 20 MG/2 ML IVPush SCH (08:46)
[2019-09-10] MEDS: FUROSEMIDE 40 MG/4 ML IV SCH ×2 (08:46→21:06)
[2019-09-10] MEDS: SEVELAMER 2.4 GM POWD.PACK JT SCH ×3 (08:46→15:36)
[2019-09-10] MEDS: GABAPENTIN 100 MG CAPSULE PO SCH ×3 (08:47→21:08)
[2019-09-10] MEDS: MAGNESIUM OXIDE 400 MG TABLET PO SCH (08:47)
[2019-09-10] MEDS: MIDODRINE 5 MG TABLET PO SCH ×3 (08:47→21:08)
[2019-09-10] MEDS: DULOXETINE 30 MG CAPSULE.DR PO SCH (08:47)
[2019-09-10] MEDS: BUPROPION 100 MG TABLET PO SCH ×2 (08:47→21:08)
[2019-09-10] MEDS: SENNA 176 MG/5 ML ORAL SOL PO SCH ×2 (08:48→21:08)
[2019-09-10] MEDS: DOCUSATE 50 MG/5 ML, 10ML UDC PO SCH ×2 (08:48→21:07)
[2019-09-10] MEDS: LACTULOSE 20 GM/30 ML UDC PO SCH ×2 (08:48→21:07)
[2019-09-10] MEDS: INSULIN GLARGINE 100 UNITS/ML, PEN SQ-INSULIN SCH ×2 (08:52→21:11)
[2019-09-10] MEDS: SODIUM CHLORIDE FLUSH 10ML SYR IVF SCH ×2 (09:00→21:07)
[2019-09-10] MEDS: METHYLNALTREXONE 12 MG/0.6 ML SYR SQ SCH (21:08)
[2019-09-11] MEDS: METOCLOPRAMIDE 5 MG/ML, 2ML IV SCH ×3 (01:29→17:43)
[2019-09-11] MEDS: ALBUTEROL/IPRATROPIUM 2.5MG/0.5MG, 3 ML NPPB SCH ×4 (02:19→20:30)
[2019-09-11] MEDS: INSULIN LISPRO 100 UNITS/ML, PEN SQ-INSULIN SCH ×4 (03:00→21:00)
[2019-09-11] MEDS: OXYcodone 5 MG/5 ML ORAL.SOL UDC PO PRN ×4 (04:02→21:34)
[2019-09-11 05:11] VITALS: BP 127/79
[2019-09-11] MEDS: HEPARIN 5,000 UNITS/ML, 1ML SQ SCH ×3 (05:53→20:57)
[2019-09-11] MEDS: ONDANSETRON 2MG/ML, 2ML IVPush SCH ×4 (05:53→23:56)
[2019-09-11] MEDS: HYDROmorphone 2 MG/ML, 1ML IVPush PRN ×2 (06:34→13:08)
[2019-09-11] MEDS: SEVELAMER 2.4 GM POWD.PACK JT SCH ×3 (08:25→17:43)
[2019-09-11] MEDS: FAMOTIDINE 20 MG/2 ML IVPush SCH (08:25)
[2019-09-11] MEDS: DOCUSATE 50 MG/5 ML, 10ML UDC PO SCH ×2 (08:26→20:56)
[2019-09-11] MEDS: BUPROPION 100 MG TABLET PO SCH ×2 (08:26→20:56)
[2019-09-11] MEDS: MAGNESIUM OXIDE 400 MG TABLET PO SCH (08:26)
[2019-09-11] MEDS: GABAPENTIN 100 MG CAPSULE PO SCH ×3 (08:26→20:56)
[2019-09-11] MEDS: DULOXETINE 30 MG CAPSULE.DR PO SCH (08:26)
[2019-09-11] MEDS: MIDODRINE 5 MG TABLET PO SCH ×3 (08:27→20:56)
[2019-09-11] MEDS: FUROSEMIDE 40 MG/4 ML IV SCH ×2 (08:27→20:55)
[2019-09-11] MEDS: SENNA 176 MG/5 ML ORAL SOL PO SCH (08:28)
[2019-09-11] MEDS: SODIUM CHLORIDE FLUSH 10ML SYR IVF SCH ×2 (08:30→20:56)
[2019-09-11] MEDS: INSULIN GLARGINE 100 UNITS/ML, PEN SQ-INSULIN SCH ×2 (08:35→21:16)
[2019-09-11] MEDS: LACTULOSE 20 GM/30 ML UDC PO SCH (08:36)
[2019-09-11 14:30] LABS: BASOPHILS % (AUTO) 1 % (0-1); EOSINOPHILS # (AUTO) 0.36 x10^3/uL (0-0.4); EOSINOPHILS % (AUTO) 4 % (1-7); LYMPHOCYTES # (AUTO) 1.36 x10^3/uL (1-3.4); LYMPHOCYTES % (AUTO) 15 % (22-44); MD NO; MEAN CORPUSCULAR HEMOGLOBIN 29.6 pg (27.5-34.5); MEAN CORPUSCULAR VOLUME 89.8 fL (81-97); MEAN PLATELET VOLUME 6.7 fL (7.4-10.4); MONOCYTES # (AUTO) 0.73 x10^3/uL (0.2-0.8); MONOCYTES % (AUTO) 8 % (2-9); NEUTROPHILS # (AUTO) 6.79 x10^3/uL (1.8-6.8); NEUTROPHILS % (AUTO) 73 % (42-75); PLATELET COUNT 345 x10^3/uL (130-400); RED BLOOD COUNT 2.72 x10^6/uL (4.38-5.82); RED CELL DISTRIBUTION WIDTH 16.6 % (9.4-14.8)
[2019-09-11 14:40] LABS: ANION GAP 11 mmol/L (5-15); CALCIUM 10.2 mg/dL (8.5-10.1); CHLORIDE 94 mmol/L (98-107); CREATININE 2.52 mg/dL (0.7-1.3)
[2019-09-11 14:44] LABS: ALBUMIN 2.7 g/dL (3.4-5.0); ANION GAP 10 mmol/L (5-15); CALCIUM 10.1 mg/dL (8.5-10.1); CHLORIDE 95 mmol/L (98-107); CREATININE 2.51 mg/dL (0.7-1.3)
[2019-09-11] MEDS: METHYLNALTREXONE 12 MG/0.6 ML SYR SQ SCH (20:57)
[2019-09-11] MEDS: SCOPOLAMINE PATCH, 1.5MG PATCH.TD72 TD SCH (20:58)
[2019-09-11] MEDS: TRAZODONE 100MG TABLET PO PRN (22:40)
[2019-09-12] MEDS: OXYcodone 5 MG/5 ML ORAL.SOL UDC PO PRN ×4 (01:48→22:09)
[2019-09-12] MEDS: METOCLOPRAMIDE 5 MG/ML, 2ML IV SCH ×3 (01:49→17:53)
[2019-09-12] MEDS: ALBUTEROL/IPRATROPIUM 2.5MG/0.5MG, 3 ML NPPB SCH ×4 (03:00→20:30)
[2019-09-12] MEDS: INSULIN LISPRO 100 UNITS/ML, PEN SQ-INSULIN SCH ×4 (03:00→21:00)
[2019-09-12 04:41] VITALS: BP 105/60
[2019-09-12] MEDS: ONDANSETRON 2MG/ML, 2ML IVPush SCH ×3 (06:01→17:52)
[2019-09-12] MEDS: HEPARIN 5,000 UNITS/ML, 1ML SQ SCH ×3 (06:02→21:19)
[2019-09-12] MEDS: HYDROmorphone 2 MG/ML, 1ML IVPush PRN (06:42)
[2019-09-12] MEDS: SEVELAMER 2.4 GM POWD.PACK JT SCH ×3 (08:32→17:53)
[2019-09-12] MEDS: FUROSEMIDE 40 MG/4 ML IV SCH ×2 (08:32→21:19)
[2019-09-12] MEDS: SODIUM CHLORIDE FLUSH 10ML SYR IVF SCH ×2 (08:33→21:16)
[2019-09-12] MEDS: FAMOTIDINE 20 MG/2 ML IVPush SCH (08:33)
[2019-09-12] MEDS: INSULIN GLARGINE 100 UNITS/ML, PEN SQ-INSULIN SCH ×2 (08:34→21:14)
[2019-09-12] MEDS: BUPROPION 100 MG TABLET PO SCH ×2 (08:34→21:20)
[2019-09-12] MEDS: MIDODRINE 5 MG TABLET PO SCH ×3 (08:35→21:00)
[2019-09-12] MEDS: GABAPENTIN 100 MG CAPSULE PO SCH ×3 (08:35→21:20)
[2019-09-12] MEDS: MAGNESIUM OXIDE 400 MG TABLET PO SCH (08:35)
[2019-09-12] MEDS: DULOXETINE 30 MG CAPSULE.DR PO SCH (08:35)
[2019-09-12] MEDS: DOCUSATE 50 MG/5 ML, 10ML UDC PO SCH ×2 (08:36→21:16)
[2019-09-12] MEDS: FENTANYL 100 MCG PATCH TD SCH (11:34)
[2019-09-12] MEDS: DARBEPOETIN 100 MCG/ML SQ SCH (11:34)
[2019-09-12 13:03] VITALS: BP 102/70
[2019-09-12 14:19] LABS: ANION GAP 11 mmol/L (5-15); CALCIUM 10.3 mg/dL (8.5-10.1); CHLORIDE 92 mmol/L (98-107); CREATININE 2.23 mg/dL (0.7-1.3)
[2019-09-12 14:37] LABS: BASOPHILS # (AUTO) 0.04 x10^3/uL (0-0.1); BASOPHILS % (AUTO) 0 % (0-1); EOSINOPHILS # (AUTO) 0.55 x10^3/uL (0-0.4); EOSINOPHILS % (AUTO) 4 % (1-7); LYMPHOCYTES # (AUTO) 1.67 x10^3/uL (1-3.4); LYMPHOCYTES % (AUTO) 14 % (22-44); MD NO; MEAN CORPUSCULAR HEMOGLOBIN 29.6 pg (27.5-34.5); MEAN CORPUSCULAR HGB CONC 33.1 g/dL (33.2-36.2); MEAN CORPUSCULAR VOLUME 89.6 fL (81-97); MEAN PLATELET VOLUME 6.9 fL (7.4-10.4); MONOCYTES # (AUTO) 1.25 x10^3/uL (0.2-0.8); MONOCYTES % (AUTO) 10 % (2-9); NEUTROPHILS # (AUTO) 8.87 x10^3/uL (1.8-6.8); NEUTROPHILS % (AUTO) 72 % (42-75); PLATELET COUNT 349 x10^3/uL (130-400); RED BLOOD COUNT 2.83 x10^6/uL (4.38-5.82); RED CELL DISTRIBUTION WIDTH 16.6 % (9.4-14.8)
[2019-09-12 14:38] LABS: HEMOGRAM NOTE RECHECKED
[2019-09-12 18:29] VITALS: BP 101/68
[2019-09-12 20:48] VITALS: BP 110/67
[2019-09-12] MEDS: LACTULOSE 20 GM/30 ML UDC PO SCH (21:16)
[2019-09-12] MEDS: TRAZODONE 100MG TABLET PO PRN (21:20)
[2019-09-12] MEDS: METHYLNALTREXONE 12 MG/0.6 ML SYR SQ SCH (22:10)
[2019-09-13] VITALS (7 sets, daily range): BP systolic 84–104; BP diastolic 54–68
[2019-09-13] MEDS: ONDANSETRON 2MG/ML, 2ML IVPush SCH ×4 (00:04→18:04)
[2019-09-13] MEDS: OXYcodone 5 MG/5 ML ORAL.SOL UDC PO PRN ×5 (02:35→22:00)
[2019-09-13] MEDS: METOCLOPRAMIDE 5 MG/ML, 2ML IV SCH ×3 (02:35→18:04)
[2019-09-13] MEDS: INSULIN LISPRO 100 UNITS/ML, PEN SQ-INSULIN SCH ×4 (03:00→20:35)
[2019-09-13] MEDS: ALBUTEROL/IPRATROPIUM 2.5MG/0.5MG, 3 ML NPPB SCH ×4 (03:00→21:00)
[2019-09-13] MEDS: HEPARIN 5,000 UNITS/ML, 1ML SQ SCH ×3 (05:52→22:00)
[2019-09-13] MEDS: FUROSEMIDE 40 MG/4 ML IV SCH ×4 (09:00→20:35)
[2019-09-13] MEDS: HYDROmorphone 2 MG/ML, 1ML IVPush PRN (10:04)
[2019-09-13] MEDS: LACTULOSE 20 GM/30 ML UDC PO SCH (10:09)
[2019-09-13] MEDS: DOCUSATE 50 MG/5 ML, 10ML UDC PO SCH ×2 (10:09→20:42)
[2019-09-13] MEDS: SEVELAMER 2.4 GM POWD.PACK JT SCH ×3 (10:10→16:20)
[2019-09-13] MEDS: SODIUM CHLORIDE FLUSH 10ML SYR IVF SCH ×2 (10:11→20:45)
[2019-09-13] MEDS: FAMOTIDINE 20 MG/2 ML IVPush SCH (10:12)
[2019-09-13] MEDS: MIDODRINE 5 MG TABLET PO SCH ×3 (10:15→20:34)
[2019-09-13] MEDS: MAGNESIUM OXIDE 400 MG TABLET PO SCH (10:16)
[2019-09-13] MEDS: GABAPENTIN 100 MG CAPSULE PO SCH ×3 (10:16→20:42)
[2019-09-13] MEDS: BUPROPION 100 MG TABLET PO SCH ×2 (10:16→20:43)
[2019-09-13] MEDS: DULOXETINE 30 MG CAPSULE.DR PO SCH (10:16)
[2019-09-13] MEDS: INSULIN GLARGINE 100 UNITS/ML, PEN SQ-INSULIN SCH ×2 (11:07→20:45)
[2019-09-13] MEDS ORDERED: SODIUM CHLORIDE 0.9%, 250ML IVBOLUS ONE (14:30)
[2019-09-13] MEDS: METHYLNALTREXONE 12 MG/0.6 ML SYR SQ SCH (20:43)
[2019-09-13] MEDS: TRAZODONE 100MG TABLET PO PRN (20:43)
[2019-09-14] MEDS: ONDANSETRON 2MG/ML, 2ML IVPush SCH ×4 (00:03→21:42)
[2019-09-14] MEDS: ACETAMINOPHEN 650 MG/20.3 ML UDC PO PRN ×2 (02:00→06:14)
[2019-09-14] MEDS: OXYcodone 5 MG/5 ML ORAL.SOL UDC PO PRN ×5 (02:00→22:45)
[2019-09-14] MEDS: METOCLOPRAMIDE 5 MG/ML, 2ML IV SCH ×3 (02:00→21:43)
[2019-09-14] MEDS: ALBUTEROL/IPRATROPIUM 2.5MG/0.5MG, 3 ML NPPB SCH ×3 (02:06→14:28)
[2019-09-14] MEDS: INSULIN LISPRO 100 UNITS/ML, PEN SQ-INSULIN SCH ×4 (03:00→21:49)
[2019-09-14] MEDS: HEPARIN 5,000 UNITS/ML, 1ML SQ SCH ×3 (06:15→21:42)
[2019-09-14 06:35] VITALS: BP 96/64
[2019-09-14 08:34] VITALS: BP 103/66
[2019-09-14] MEDS: BUPROPION 100 MG TABLET PO SCH ×2 (08:38→21:49)
[2019-09-14] MEDS: MAGNESIUM OXIDE 400 MG TABLET PO SCH (08:39)
[2019-09-14] MEDS: MIDODRINE 5 MG TABLET PO SCH ×3 (08:39→21:48)
[2019-09-14] MEDS: LACTULOSE 20 GM/30 ML UDC PO SCH (08:39)
[2019-09-14] MEDS: DOCUSATE 50 MG/5 ML, 10ML UDC PO SCH ×2 (08:39→21:47)
[2019-09-14] MEDS: FAMOTIDINE 20 MG/2 ML IVPush SCH (08:39)
[2019-09-14] MEDS: GABAPENTIN 100 MG CAPSULE PO SCH ×3 (08:39→21:49)
[2019-09-14] MEDS: DULOXETINE 30 MG CAPSULE.DR PO SCH (08:39)
[2019-09-14] MEDS: SODIUM CHLORIDE FLUSH 10ML SYR IVF SCH ×2 (08:39→21:50)
[2019-09-14] MEDS: FUROSEMIDE 40 MG/4 ML IV SCH ×2 (08:40→21:46)
[2019-09-14] MEDS: SEVELAMER 2.4 GM POWD.PACK JT SCH ×3 (08:40→17:51)
[2019-09-14] MEDS: INSULIN GLARGINE 100 UNITS/ML, PEN SQ-INSULIN SCH ×2 (09:37→21:41)
[2019-09-14 09:42] LABS: BASOPHILS # (AUTO) 0.03 x10^3/uL (0-0.1); BASOPHILS % (AUTO) 0 % (0-1); EOSINOPHILS # (AUTO) 0.48 x10^3/uL (0-0.4); EOSINOPHILS % (AUTO) 5 % (1-7); LYMPHOCYTES # (AUTO) 1.29 x10^3/uL (1-3.4); LYMPHOCYTES % (AUTO) 14 % (22-44); MD NO; MEAN CORPUSCULAR HGB CONC 32.6 g/dL (33.2-36.2); MEAN CORPUSCULAR VOLUME 89.2 fL (81-97); MEAN PLATELET VOLUME 6.8 fL (7.4-10.4); MONOCYTES # (AUTO) 0.84 x10^3/uL (0.2-0.8); MONOCYTES % (AUTO) 9 % (2-9); NEUTROPHILS # (AUTO) 6.32 x10^3/uL (1.8-6.8); NEUTROPHILS % (AUTO) 71 % (42-75); PLATELET COUNT 289 x10^3/uL (130-400); RED BLOOD COUNT 2.58 x10^6/uL (4.38-5.82); RED CELL DISTRIBUTION WIDTH 16.6 % (9.4-14.8)
[2019-09-14 09:47] LABS: ALANINE AMINOTRANSFERASE 29 U/L (12-78); ALBUMIN 2.5 g/dL (3.4-5.0); ANION GAP 14 mmol/L (5-15); CALCIUM 10.2 mg/dL (8.5-10.1); CHLORIDE 93 mmol/L (98-107)
[2019-09-14 09:49] LABS: ALKALINE PHOSPHATASE 115 U/L (45-117); BILIRUBIN,TOTAL 0.3 mg/dL (0.2-1.0)
[2019-09-14 14:00] VITALS: BP 96/63
[2019-09-14 18:38] VITALS: BP 111/71
[2019-09-14 21:44] VITALS: BP 96/63
[2019-09-14] MEDS: LACTULOSE 20 GM/30 ML UDC PO PRN (21:47)
[2019-09-14] MEDS: SCOPOLAMINE PATCH, 1.5MG PATCH.TD72 TD SCH (21:49)
[2019-09-14] MEDS: METHYLNALTREXONE 12 MG/0.6 ML SYR SQ SCH (22:46)
[2019-09-15 03:25] VITALS: BP 102/59
[2019-09-15] MEDS: OXYcodone 5 MG/5 ML ORAL.SOL UDC PO PRN ×4 (03:33→22:35)
[2019-09-15] MEDS: INSULIN LISPRO 100 UNITS/ML, PEN SQ-INSULIN SCH ×4 (03:46→20:58)
[2019-09-15] MEDS: ONDANSETRON 2MG/ML, 2ML IVPush SCH ×4 (03:46→20:32)
[2019-09-15 03:52] VITALS: BP 107/69
[2019-09-15] MEDS: HEPARIN 5,000 UNITS/ML, 1ML SQ SCH ×3 (06:30→22:35)
[2019-09-15] MEDS: METOCLOPRAMIDE 5 MG/ML, 2ML IV SCH ×3 (06:30→22:35)
[2019-09-15 08:16] VITALS: BP 117/75
[2019-09-15] MEDS: BUPROPION 100 MG TABLET PO SCH ×2 (08:20→20:29)
[2019-09-15] MEDS: DOCUSATE 50 MG/5 ML, 10ML UDC PO SCH ×2 (08:20→20:29)
[2019-09-15] MEDS: LACTULOSE 20 GM/30 ML UDC PO SCH (08:20)
[2019-09-15] MEDS: MIDODRINE 5 MG TABLET PO SCH ×3 (08:20→20:32)
[2019-09-15] MEDS: MAGNESIUM OXIDE 400 MG TABLET PO SCH (08:21)
[2019-09-15] MEDS: GABAPENTIN 100 MG CAPSULE PO SCH ×3 (08:21→20:29)
[2019-09-15] MEDS: DULOXETINE 30 MG CAPSULE.DR PO SCH (08:21)
[2019-09-15] MEDS: FUROSEMIDE 40 MG/4 ML IV SCH ×2 (08:22→20:28)
[2019-09-15] MEDS: FAMOTIDINE 20 MG/2 ML IVPush SCH (08:22)
[2019-09-15] MEDS: SEVELAMER 2.4 GM POWD.PACK JT SCH ×3 (08:22→18:36)
[2019-09-15] MEDS: SODIUM CHLORIDE FLUSH 10ML SYR IVF SCH ×2 (08:22→20:29)
[2019-09-15] MEDS: INSULIN GLARGINE 100 UNITS/ML, PEN SQ-INSULIN SCH ×2 (10:06→21:00)
[2019-09-15] MEDS: HYDROmorphone 2 MG/ML, 1ML IVPush PRN (10:26)
[2019-09-15] MEDS: FENTANYL 100 MCG PATCH TD SCH (12:13)
[2019-09-15 14:06] VITALS: BP 107/72
[2019-09-15 16:09] VITALS: BP 110/75
[2019-09-15 18:52] VITALS: BP 107/68
[2019-09-15] MEDS: LACTULOSE 20 GM/30 ML UDC PO PRN (20:30)
[2019-09-15] MEDS: TRAZODONE 100MG TABLET PO PRN (22:34)
[2019-09-15] MEDS: METHYLNALTREXONE 12 MG/0.6 ML SYR SQ SCH (22:36)
[2019-09-16] MEDS: ONDANSETRON 2MG/ML, 2ML IVPush SCH ×4 (02:55→20:57)
[2019-09-16] MEDS: INSULIN LISPRO 100 UNITS/ML, PEN SQ-INSULIN SCH ×4 (03:00→21:07)
[2019-09-16] MEDS: OXYcodone 5 MG/5 ML ORAL.SOL UDC PO PRN ×4 (03:03→20:58)
[2019-09-16] MEDS: HEPARIN 5,000 UNITS/ML, 1ML SQ SCH ×3 (05:55→22:41)
[2019-09-16] MEDS: METOCLOPRAMIDE 5 MG/ML, 2ML IV SCH ×3 (05:56→22:41)
[2019-09-16 07:52] VITALS: BP 114/76
[2019-09-16] MEDS: DOCUSATE 50 MG/5 ML, 10ML UDC PO SCH ×2 (07:55→20:59)
[2019-09-16] MEDS: LACTULOSE 20 GM/30 ML UDC PO SCH (07:55)
[2019-09-16] MEDS: BUPROPION 100 MG TABLET PO SCH ×2 (07:56→22:40)
[2019-09-16] MEDS: FAMOTIDINE 20 MG/2 ML IVPush SCH (07:56)
[2019-09-16] MEDS: SEVELAMER 2.4 GM POWD.PACK JT SCH ×3 (07:56→17:27)
[2019-09-16] MEDS: FUROSEMIDE 40 MG/4 ML IV SCH ×2 (07:56→20:54)
[2019-09-16] MEDS: MAGNESIUM OXIDE 400 MG TABLET PO SCH (07:56)
[2019-09-16] MEDS: GABAPENTIN 100 MG CAPSULE PO SCH ×3 (07:56→21:00)
[2019-09-16] MEDS: SODIUM CHLORIDE FLUSH 10ML SYR IVF SCH ×2 (07:57→21:00)
[2019-09-16] MEDS: MIDODRINE 5 MG TABLET PO SCH ×3 (07:57→21:01)
[2019-09-16] MEDS: DULOXETINE 30 MG CAPSULE.DR PO SCH (08:01)
[2019-09-16] MEDS: INSULIN GLARGINE 100 UNITS/ML, PEN SQ-INSULIN SCH ×2 (09:59→21:07)
[2019-09-16 11:30] LABS: BASOPHILS # (AUTO) 0.03 x10^3/uL (0-0.1); BASOPHILS % (AUTO) 0 % (0-1); EOSINOPHILS # (AUTO) 0.32 x10^3/uL (0-0.4); EOSINOPHILS % (AUTO) 3 % (1-7); LYMPHOCYTES # (AUTO) 1.15 x10^3/uL (1-3.4); LYMPHOCYTES % (AUTO) 12 % (22-44); MD NO; MEAN CORPUSCULAR HEMOGLOBIN 29.8 pg (27.5-34.5); MEAN CORPUSCULAR HGB CONC 33.3 g/dL (33.2-36.2); MEAN CORPUSCULAR VOLUME 89.5 fL (81-97); MEAN PLATELET VOLUME 7.1 fL (7.4-10.4); MONOCYTES # (AUTO) 0.73 x10^3/uL (0.2-0.8); MONOCYTES % (AUTO) 8 % (2-9); NEUTROPHILS # (AUTO) 7.42 x10^3/uL (1.8-6.8); NEUTROPHILS % (AUTO) 77 % (42-75); PLATELET COUNT 307 x10^3/uL (130-400); RED BLOOD COUNT 2.68 x10^6/uL (4.38-5.82); RED CELL DISTRIBUTION WIDTH 16.2 % (9.4-14.8)
[2019-09-16 11:39] LABS: ANION GAP 12 mmol/L (5-15); CALCIUM 10.2 mg/dL (8.5-10.1); CHLORIDE 99 mmol/L (98-107)
[2019-09-16 14:41] VITALS: BP 120/79
[2019-09-16] MEDS: SIMETHICONE 80 MG CHEW TAB PO PRN (17:27)
[2019-09-16 20:51] VITALS: BP 103/71
[2019-09-16] MEDS: LACTULOSE 20 GM/30 ML UDC PO PRN (20:59)
[2019-09-16] MEDS: TRAZODONE 100MG TABLET PO PRN (22:41)
[2019-09-16] MEDS: METHYLNALTREXONE 12 MG/0.6 ML SYR SQ SCH (22:42)
[2019-09-17] MEDS: INSULIN LISPRO 100 UNITS/ML, PEN SQ-INSULIN SCH ×4 (03:40→21:00)
[2019-09-17 03:43] VITALS: BP 127/81
[2019-09-17] MEDS: ONDANSETRON 2MG/ML, 2ML IVPush SCH ×4 (03:46→21:42)
[2019-09-17] MEDS: OXYcodone 5 MG/5 ML ORAL.SOL UDC PO PRN ×5 (03:46→22:58)
[2019-09-17] MEDS: HEPARIN 5,000 UNITS/ML, 1ML SQ SCH ×3 (06:09→22:58)
[2019-09-17] MEDS: METOCLOPRAMIDE 5 MG/ML, 2ML IV SCH ×3 (06:10→22:57)
[2019-09-17 07:16] VITALS: BP 117/78
[2019-09-17] MEDS: SEVELAMER 2.4 GM POWD.PACK JT SCH ×3 (08:52→17:43)
[2019-09-17] MEDS: LACTULOSE 20 GM/30 ML UDC PO SCH (08:53)
[2019-09-17] MEDS: DOCUSATE 50 MG/5 ML, 10ML UDC PO SCH ×2 (08:53→21:52)
[2019-09-17] MEDS: DULOXETINE 30 MG CAPSULE.DR PO SCH ×2 (08:53→09:00)
[2019-09-17] MEDS: GABAPENTIN 100 MG CAPSULE PO SCH ×2 (08:54→15:51)
[2019-09-17] MEDS: MAGNESIUM OXIDE 400 MG TABLET PO SCH (08:54)
[2019-09-17] MEDS: BUPROPION 100 MG TABLET PO SCH ×3 (08:54→21:00)
[2019-09-17] MEDS: MIDODRINE 5 MG TABLET PO SCH ×3 (08:54→21:57)
[2019-09-17] MEDS: FAMOTIDINE 20 MG/2 ML IVPush SCH (08:55)
[2019-09-17] MEDS: FUROSEMIDE 40 MG/4 ML IV SCH ×2 (08:55→22:02)
[2019-09-17] MEDS: SODIUM CHLORIDE FLUSH 10ML SYR IVF SCH ×2 (08:56→22:02)
[2019-09-17] MEDS: INSULIN GLARGINE 100 UNITS/ML, PEN SQ-INSULIN SCH ×2 (09:31→21:00)
[2019-09-17 12:50] VITALS: BP 117/75
[2019-09-17] MEDS: SIMETHICONE 80 MG CHEW TAB PO PRN (12:59)
[2019-09-17 15:54] VITALS: BP 102/69
[2019-09-17 20:37] VITALS: BP 106/78
[2019-09-17] MEDS ORDERED: GABAPENTIN 250 MG/5 ML ORAL SOL PO SCH (21:00)
[2019-09-17] MEDS: SCOPOLAMINE PATCH, 1.5MG PATCH.TD72 TD SCH (21:43)
[2019-09-17] MEDS: METHYLNALTREXONE 12 MG/0.6 ML SYR SQ SCH ×2 (22:30→22:57)
[2019-09-18] MEDS: INSULIN LISPRO 100 UNITS/ML, PEN SQ-INSULIN SCH ×4 (03:00→21:00)
[2019-09-18 05:52] VITALS: BP 109/75
[2019-09-18] MEDS: ONDANSETRON 2MG/ML, 2ML IVPush SCH ×4 (06:02→23:55)
[2019-09-18] MEDS: METOCLOPRAMIDE 5 MG/ML, 2ML IV SCH ×3 (06:06→22:47)
[2019-09-18] MEDS: HEPARIN 5,000 UNITS/ML, 1ML SQ SCH ×3 (06:09→22:46)
[2019-09-18] MEDS: OXYcodone 5 MG/5 ML ORAL.SOL UDC PO PRN ×4 (06:18→21:25)
[2019-09-18 08:59] VITALS: BP 103/62
[2019-09-18] MEDS: GABAPENTIN 250 MG/5 ML ORAL SOL PO SCH ×3 (09:03→21:26)
[2019-09-18] MEDS: MAGNESIUM OXIDE 400 MG TABLET PO SCH (09:03)
[2019-09-18] MEDS: SEVELAMER 2.4 GM POWD.PACK JT SCH ×3 (09:03→16:43)
[2019-09-18] MEDS: FUROSEMIDE 40 MG/4 ML IV SCH ×2 (09:04→21:26)
[2019-09-18] MEDS: BUPROPION 100 MG TABLET PO SCH ×2 (09:04→21:27)
[2019-09-18] MEDS: MIDODRINE 5 MG TABLET PO SCH ×3 (09:04→21:27)
[2019-09-18] MEDS: DULOXETINE 30 MG CAPSULE.DR PO SCH (09:04)
[2019-09-18] MEDS: FAMOTIDINE 20 MG/2 ML IVPush SCH (09:04)
[2019-09-18] MEDS: SODIUM CHLORIDE FLUSH 10ML SYR IVF SCH ×2 (09:05→21:00)
[2019-09-18] MEDS: LACTULOSE 20 GM/30 ML UDC PO SCH (09:07)
[2019-09-18] MEDS: DOCUSATE 50 MG/5 ML, 10ML UDC PO SCH ×2 (09:07→21:26)
[2019-09-18] MEDS: INSULIN GLARGINE 100 UNITS/ML, PEN SQ-INSULIN SCH ×2 (09:49→21:25)
[2019-09-18] MEDS: HYDROmorphone 2 MG/ML, 1ML IVPush PRN (10:03)
[2019-09-18] MEDS: FENTANYL 100 MCG PATCH TD SCH (11:00)
[2019-09-18 12:37] LABS: MEAN CORPUSCULAR HEMOGLOBIN 29.1 pg (27.5-34.5); MEAN CORPUSCULAR HGB CONC 33.3 g/dL (33.2-36.2); MEAN CORPUSCULAR VOLUME 87.4 fL (81-97); MEAN PLATELET VOLUME 6.7 fL (7.4-10.4); PLATELET COUNT 304 x10^3/uL (130-400); RED BLOOD COUNT 2.83 x10^6/uL (4.38-5.82); RED CELL DISTRIBUTION WIDTH 16.3 % (9.4-14.8)
[2019-09-18 12:47] LABS: CHLORIDE 96 mmol/L (98-107)
[2019-09-18 12:58] LABS: ALANINE AMINOTRANSFERASE 26 U/L (12-78); ALBUMIN 2.4 g/dL (3.4-5.0); ALKALINE PHOSPHATASE 142 U/L (45-117); ANION GAP 13 mmol/L (5-15); BILIRUBIN,TOTAL 0.4 mg/dL (0.2-1.0); CALCIUM 10.3 mg/dL (8.5-10.1); CREATININE 2.43 mg/dL (0.7-1.3); TOTAL PROTEIN 6.9 g/dL (6.4-8.2)
[2019-09-18 13:42] LABS: BASOPHILS # (AUTO) 0.05 x10^3/uL (0-0.1); BASOPHILS % (AUTO) 0 % (0-1); EOSINOPHILS # (AUTO) 0.36 x10^3/uL (0-0.4); EOSINOPHILS % (AUTO) 3 % (1-7); LYMPHOCYTES # (AUTO) 1.23 x10^3/uL (1-3.4); LYMPHOCYTES % (AUTO) 11 % (22-44); MD SCAN; MONOCYTES # (AUTO) 0.83 x10^3/uL (0.2-0.8); MONOCYTES % (AUTO) 7 % (2-9); NEUTROPHILS # (AUTO) 8.98 x10^3/uL (1.8-6.8); NEUTROPHILS % (AUTO) 79 % (42-75)
[2019-09-18 14:36] VITALS: BP 107/73
[2019-09-18] MEDS: SIMETHICONE 80 MG CHEW TAB PO PRN ×2 (15:23→21:27)
[2019-09-18 20:49] VITALS: BP 147/87
[2019-09-18] MEDS: LORazepam 1MG TABLET PO PRN (21:27)
[2019-09-18] MEDS: METHYLNALTREXONE 12 MG/0.6 ML SYR SQ SCH (23:55)
[2019-09-19 01:35] VITALS: BP 119/84
[2019-09-19] MEDS: INSULIN LISPRO 100 UNITS/ML, PEN SQ-INSULIN SCH ×4 (03:00→20:59)
[2019-09-19] MEDS: SIMETHICONE 80 MG CHEW TAB PO PRN ×3 (03:48→20:57)
[2019-09-19] MEDS: OXYcodone 5 MG/5 ML ORAL.SOL UDC PO PRN ×4 (04:39→20:57)
[2019-09-19] MEDS: HEPARIN 5,000 UNITS/ML, 1ML SQ SCH ×3 (05:54→22:00)
[2019-09-19] MEDS: ONDANSETRON 2MG/ML, 2ML IVPush SCH ×3 (05:54→18:00)
[2019-09-19] MEDS: METOCLOPRAMIDE 5 MG/ML, 2ML IV SCH ×3 (06:00→22:00)
[2019-09-19 07:03] LABS: ALANINE AMINOTRANSFERASE 28 U/L (12-78); ALBUMIN 2.6 g/dL (3.4-5.0); ANION GAP 13 mmol/L (5-15); CALCIUM 10.6 mg/dL (8.5-10.1); CHLORIDE 93 mmol/L (98-107)
[2019-09-19 07:06] LABS: ALKALINE PHOSPHATASE 159 U/L (45-117); BASOPHILS # (AUTO) 0.02 x10^3/uL (0-0.1); BASOPHILS % (AUTO) 0 % (0-1); BILIRUBIN,TOTAL 0.3 mg/dL (0.2-1.0); EOSINOPHILS # (AUTO) 0.44 x10^3/uL (0-0.4); EOSINOPHILS % (AUTO) 4 % (1-7); LYMPHOCYTES # (AUTO) 1.15 x10^3/uL (1-3.4); LYMPHOCYTES % (AUTO) 9 % (22-44); MD NO; MEAN CORPUSCULAR HGB CONC 33.2 g/dL (33.2-36.2); MEAN CORPUSCULAR VOLUME 87.4 fL (81-97); MEAN PLATELET VOLUME 6.9 fL (7.4-10.4); MONOCYTES # (AUTO) 1.02 x10^3/uL (0.2-0.8); MONOCYTES % (AUTO) 8 % (2-9); NEUTROPHILS % (AUTO) 79 % (42-75); PLATELET COUNT 309 x10^3/uL (130-400); RED BLOOD COUNT 3.04 x10^6/uL (4.38-5.82); RED CELL DISTRIBUTION WIDTH 15.9 % (9.4-14.8); TOTAL PROTEIN 7.6 g/dL (6.4-8.2)
[2019-09-19 08:00] VITALS: BP 117/74
[2019-09-19] MEDS: DULOXETINE 30 MG CAPSULE.DR PO SCH (08:29)
[2019-09-19] MEDS: DOCUSATE 50 MG/5 ML, 10ML UDC PO SCH ×2 (08:29→20:57)
[2019-09-19] MEDS: SEVELAMER 2.4 GM POWD.PACK JT SCH ×3 (08:29→16:33)
[2019-09-19] MEDS: FAMOTIDINE 20 MG/2 ML IVPush SCH (08:29)
[2019-09-19] MEDS: MAGNESIUM OXIDE 400 MG TABLET PO SCH (08:30)
[2019-09-19] MEDS: LACTULOSE 20 GM/30 ML UDC PO SCH (08:30)
[2019-09-19] MEDS: GABAPENTIN 250 MG/5 ML ORAL SOL PO SCH ×3 (08:31→21:00)
[2019-09-19] MEDS: MIDODRINE 5 MG TABLET PO SCH ×3 (08:31→21:00)
[2019-09-19] MEDS: BUPROPION 100 MG TABLET PO SCH ×2 (08:31→21:00)
[2019-09-19] MEDS: FUROSEMIDE 40 MG/4 ML IV SCH ×2 (09:00→20:58)
[2019-09-19] MEDS: SODIUM CHLORIDE FLUSH 10ML SYR IVF SCH ×2 (09:00→21:00)
[2019-09-19] MEDS: INSULIN GLARGINE 100 UNITS/ML, PEN SQ-INSULIN SCH ×2 (09:17→20:59)
[2019-09-19 10:15] VITALS: BP 104/67
[2019-09-19] MEDS: DARBEPOETIN 100 MCG/ML SQ SCH (12:00)
[2019-09-19 14:30] VITALS: BP 110/70
[2019-09-19 16:29] VITALS: BP 118/80
[2019-09-19] MEDS: ACETAMINOPHEN 650 MG/20.3 ML UDC PO PRN (16:33)
[2019-09-19 19:32] VITALS: BP 120/76
[2019-09-19] MEDS: LORazepam 1MG TABLET PO PRN (20:58)
[2019-09-19] MEDS: METHYLNALTREXONE 12 MG/0.6 ML SYR SQ SCH (22:30)
[2019-09-20] MEDS: ONDANSETRON 2MG/ML, 2ML IVPush SCH ×5 (00:07→23:26)
[2019-09-20] MEDS: TRAZODONE 100MG TABLET PO PRN ×2 (00:07→23:24)
[2019-09-20 01:27] VITALS: BP 123/85
[2019-09-20] MEDS: OXYcodone 5 MG/5 ML ORAL.SOL UDC PO PRN ×4 (01:29→22:03)
[2019-09-20] MEDS: FENTANYL 100 MCG PATCH TD SCH (02:16)
[2019-09-20] MEDS: INSULIN LISPRO 100 UNITS/ML, PEN SQ-INSULIN SCH ×4 (02:34→22:11)
[2019-09-20] MEDS: HEPARIN 5,000 UNITS/ML, 1ML SQ SCH ×3 (06:07→22:01)
[2019-09-20] MEDS: METOCLOPRAMIDE 5 MG/ML, 2ML IV SCH ×3 (06:08→22:01)
[2019-09-20 08:25] VITALS: BP 124/81
[2019-09-20] MEDS: LACTULOSE 20 GM/30 ML UDC PO SCH (08:38)
[2019-09-20] MEDS: FUROSEMIDE 40 MG/4 ML IV SCH ×2 (08:38→21:51)
[2019-09-20] MEDS: FAMOTIDINE 20 MG/2 ML IVPush SCH (08:38)
[2019-09-20] MEDS: DOCUSATE 50 MG/5 ML, 10ML UDC PO SCH ×2 (08:38→21:56)
[2019-09-20] MEDS: GABAPENTIN 250 MG/5 ML ORAL SOL PO SCH ×3 (08:39→21:57)
[2019-09-20] MEDS: DULOXETINE 30 MG CAPSULE.DR PO SCH (08:39)
[2019-09-20] MEDS: MAGNESIUM OXIDE 400 MG TABLET PO SCH (08:40)
[2019-09-20] MEDS: SEVELAMER 2.4 GM POWD.PACK JT SCH ×3 (08:40→17:19)
[2019-09-20] MEDS: BUPROPION 100 MG TABLET PO SCH ×2 (09:00→23:23)
[2019-09-20] MEDS: MIDODRINE 5 MG TABLET PO SCH ×3 (09:00→21:58)
[2019-09-20] MEDS: SODIUM CHLORIDE FLUSH 10ML SYR IVF SCH ×2 (09:37→21:56)
[2019-09-20] MEDS: INSULIN GLARGINE 100 UNITS/ML, PEN SQ-INSULIN SCH ×2 (09:38→22:10)
[2019-09-20] MEDS: HYDROmorphone 2 MG/ML, 1ML IVPush PRN ×2 (10:38→10:59)
[2019-09-20 14:25] VITALS: BP 102/71
[2019-09-20 16:08] VITALS: BP 100/69
[2019-09-20] MEDS: ALBUTEROL SULFATE 2.5 MG/3 ML NPPB PRN (21:48)
[2019-09-20 21:54] VITALS: BP 98/67
[2019-09-20] MEDS: SCOPOLAMINE PATCH, 1.5MG PATCH.TD72 TD SCH (21:59)
[2019-09-20] MEDS ORDERED: BENZOCAINE AEROSOL SPRAY 20%, 60ML TP PRN (22:00)
[2019-09-20] MEDS: ACETAMINOPHEN 650 MG/20.3 ML UDC PO PRN (22:03)
[2019-09-20] MEDS: SIMETHICONE 80 MG CHEW TAB PO PRN (22:03)
[2019-09-20] MEDS: METHYLNALTREXONE 12 MG/0.6 ML SYR SQ SCH (23:24)
[2019-09-21] MEDS: INSULIN LISPRO 100 UNITS/ML, PEN SQ-INSULIN SCH ×4 (03:29→22:01)
[2019-09-21 03:45] VITALS: BP 102/70
[2019-09-21] MEDS: ONDANSETRON 2MG/ML, 2ML IVPush SCH ×4 (06:32→23:34)
[2019-09-21] MEDS: HEPARIN 5,000 UNITS/ML, 1ML SQ SCH ×3 (06:32→21:54)
[2019-09-21] MEDS: METOCLOPRAMIDE 5 MG/ML, 2ML IV SCH ×2 (06:33→14:05)
[2019-09-21 08:15] VITALS: BP 121/83
[2019-09-21] MEDS: SEVELAMER 2.4 GM POWD.PACK JT SCH ×3 (08:26→17:23)
[2019-09-21] MEDS: LACTULOSE 20 GM/30 ML UDC PO SCH (08:31)
[2019-09-21] MEDS: DOCUSATE 50 MG/5 ML, 10ML UDC PO SCH ×2 (08:32→21:52)
[2019-09-21] MEDS: GABAPENTIN 250 MG/5 ML ORAL SOL PO SCH ×3 (08:35→22:11)
[2019-09-21] MEDS: SODIUM CHLORIDE FLUSH 10ML SYR IVF SCH ×2 (08:36→21:49)
[2019-09-21] MEDS: DULOXETINE 30 MG CAPSULE.DR PO SCH (08:36)
[2019-09-21] MEDS: FUROSEMIDE 40 MG/4 ML IV SCH ×2 (08:36→21:49)
[2019-09-21] MEDS: BUPROPION 100 MG TABLET PO SCH ×2 (08:40→21:55)
[2019-09-21 08:42] LABS: MEAN CORPUSCULAR HEMOGLOBIN 28.7 pg (27.5-34.5); MEAN CORPUSCULAR HGB CONC 32.8 g/dL (33.2-36.2); MEAN CORPUSCULAR VOLUME 87.3 fL (81-97); MEAN PLATELET VOLUME 6.6 fL (7.4-10.4); PLATELET COUNT 311 x10^3/uL (130-400); RED CELL DISTRIBUTION WIDTH 15.8 % (9.4-14.8)
[2019-09-21] MEDS: MAGNESIUM OXIDE 400 MG TABLET PO SCH (08:42)
[2019-09-21] MEDS: MIDODRINE 5 MG TABLET PO SCH ×3 (08:42→21:59)
[2019-09-21] MEDS: FAMOTIDINE 20 MG/2 ML IVPush SCH (08:46)
[2019-09-21 08:51] LABS: ALBUMIN 2.6 g/dL (3.4-5.0); ANION GAP 10 mmol/L (5-15); CALCIUM 10.2 mg/dL (8.5-10.1); CHLORIDE 94 mmol/L (98-107)
[2019-09-21 08:53] LABS: ALANINE AMINOTRANSFERASE 34 U/L (12-78); ALKALINE PHOSPHATASE 199 U/L (45-117); BILIRUBIN,TOTAL 0.3 mg/dL (0.2-1.0); CREATININE 2.24 mg/dL (0.7-1.3); TOTAL PROTEIN 7.7 g/dL (6.4-8.2)
[2019-09-21] MEDS: INSULIN GLARGINE 100 UNITS/ML, PEN SQ-INSULIN SCH ×2 (08:54→22:11)
[2019-09-21 09:20] LABS: BASOPHILS # (AUTO) 0.07 x10^3/uL (0-0.1); BASOPHILS % (AUTO) 1 % (0-1); EOSINOPHILS # (AUTO) 0.46 x10^3/uL (0-0.4); EOSINOPHILS % (AUTO) 5 % (1-7); LYMPHOCYTES % (AUTO) 18 % (22-44); MD SCAN; MONOCYTES # (AUTO) 0.64 x10^3/uL (0.2-0.8); MONOCYTES % (AUTO) 7 % (2-9); NEUTROPHILS # (AUTO) 6.25 x10^3/uL (1.8-6.8); NEUTROPHILS % (AUTO) 69 % (42-75)
[2019-09-21] MEDS ORDERED: FENTANYL REMOVE PATCH NOTE XX SCH (11:00)
[2019-09-21] MEDS: FENTANYL 100 MCG PATCH TD SCH (11:10)
[2019-09-21 12:10] VITALS: BP 102/73
[2019-09-21] MEDS: OXYcodone 5 MG/5 ML ORAL.SOL UDC PO PRN ×3 (12:32→21:53)
[2019-09-21] MEDS: ACETAMINOPHEN 650 MG/20.3 ML UDC PO PRN ×2 (13:43→21:53)
[2019-09-21] MEDS: FENTANYL REMOVE PATCH NOTE XX SCH (16:12)
[2019-09-21] MEDS: FENTANYL 75 MCG PATCH TD SCH (16:12)
[2019-09-21] MEDS: SIMETHICONE 80 MG CHEW TAB PO PRN (16:12)
[2019-09-21] MEDS: DIPHENHYDRAMINE 50 MG/ML, 1ML IVPush PRN (17:23)
[2019-09-21 21:58] VITALS: BP 107/70
[2019-09-21] MEDS: METHYLNALTREXONE 12 MG/0.6 ML SYR SQ SCH (23:05)
[2019-09-21] MEDS: TRAZODONE 100MG TABLET PO PRN (23:06)
[2019-09-22 03:30] VITALS: BP 101/71
[2019-09-22] MEDS: OXYcodone 5 MG/5 ML ORAL.SOL UDC PO PRN ×4 (03:39→21:19)
[2019-09-22] MEDS: LORazepam 1MG TABLET PO PRN (03:39)
[2019-09-22] MEDS: INSULIN LISPRO 100 UNITS/ML, PEN SQ-INSULIN SCH ×4 (03:40→20:30)
[2019-09-22] MEDS: ONDANSETRON 2MG/ML, 2ML IVPush SCH ×3 (06:37→18:41)
[2019-09-22] MEDS: HEPARIN 5,000 UNITS/ML, 1ML SQ SCH ×3 (06:37→22:32)
[2019-09-22] MEDS: SEVELAMER 2.4 GM POWD.PACK JT SCH ×3 (08:56→17:34)
[2019-09-22] MEDS: DOCUSATE 50 MG/5 ML, 10ML UDC PO SCH ×2 (08:57→20:48)
[2019-09-22] MEDS: MAGNESIUM OXIDE 400 MG TABLET PO SCH (08:57)
[2019-09-22] MEDS: FUROSEMIDE 40 MG/4 ML IV SCH ×2 (08:57→20:36)
[2019-09-22] MEDS: FAMOTIDINE 20 MG/2 ML IVPush SCH (08:57)
[2019-09-22] MEDS: DULOXETINE 30 MG CAPSULE.DR PO SCH (08:57)
[2019-09-22] MEDS: LACTULOSE 20 GM/30 ML UDC PO SCH (08:57)
[2019-09-22] MEDS: MIDODRINE 5 MG TABLET PO SCH ×3 (08:58→21:18)
[2019-09-22] MEDS: BUPROPION 100 MG TABLET PO SCH ×2 (08:58→20:49)
[2019-09-22] MEDS: SODIUM CHLORIDE FLUSH 10ML SYR IVF SCH ×2 (09:00→20:47)
[2019-09-22] MEDS: INSULIN GLARGINE 100 UNITS/ML, PEN SQ-INSULIN SCH ×2 (09:00→20:49)
[2019-09-22] MEDS: GABAPENTIN 250 MG/5 ML ORAL SOL PO SCH ×3 (09:05→20:49)
[2019-09-22] MEDS: HYDROmorphone 2 MG/ML, 1ML IVPush PRN (10:05)
[2019-09-22 11:10] VITALS: BP 92/62
[2019-09-22 13:42] VITALS: BP 92/63
[2019-09-22 19:59] VITALS: BP 89/62
[2019-09-22] MEDS: METHYLNALTREXONE 12 MG/0.6 ML SYR SQ SCH (22:43)
[2019-09-23] MEDS: ONDANSETRON 2MG/ML, 2ML IVPush SCH ×4 (00:05→17:06)
[2019-09-23 00:46] VITALS: BP 98/66
[2019-09-23] MEDS: OXYcodone 5 MG/5 ML ORAL.SOL UDC PO PRN ×5 (01:44→22:53)
[2019-09-23] MEDS: INSULIN LISPRO 100 UNITS/ML, PEN SQ-INSULIN SCH ×4 (03:00→22:30)
[2019-09-23] MEDS: LORazepam 1MG TABLET PO PRN ×2 (03:42→19:02)
[2019-09-23] MEDS: HEPARIN 5,000 UNITS/ML, 1ML SQ SCH ×3 (06:10→22:32)
[2019-09-23 06:54] VITALS: BP 99/68
[2019-09-23] MEDS: ACETAMINOPHEN 650 MG/20.3 ML UDC PO PRN ×2 (09:01→14:59)
[2019-09-23] MEDS: LACTULOSE 20 GM/30 ML UDC PO SCH (09:01)
[2019-09-23] MEDS: SEVELAMER 2.4 GM POWD.PACK JT SCH ×3 (09:08→17:06)
[2019-09-23] MEDS: FAMOTIDINE 20 MG/2 ML IVPush SCH (09:08)
[2019-09-23] MEDS: FUROSEMIDE 40 MG/4 ML IV SCH ×2 (09:08→21:45)
[2019-09-23] MEDS: DOCUSATE 50 MG/5 ML, 10ML UDC PO SCH ×2 (09:08→21:49)
[2019-09-23] MEDS: BUPROPION 100 MG TABLET PO SCH ×2 (09:08→21:45)
[2019-09-23] MEDS: MIDODRINE 5 MG TABLET PO SCH ×3 (09:09→21:49)
[2019-09-23] MEDS: DULOXETINE 30 MG CAPSULE.DR PO SCH (09:09)
[2019-09-23] MEDS: MAGNESIUM OXIDE 400 MG TABLET PO SCH (09:09)
[2019-09-23] MEDS: GABAPENTIN 250 MG/5 ML ORAL SOL PO SCH ×3 (09:24→22:31)
[2019-09-23] MEDS: SODIUM CHLORIDE FLUSH 10ML SYR IVF SCH ×2 (09:25→21:50)
[2019-09-23] MEDS: INSULIN GLARGINE 100 UNITS/ML, PEN SQ-INSULIN SCH ×2 (09:25→22:30)
[2019-09-23 10:53] LABS: BASOPHILS # (AUTO) 0.04 x10^3/uL (0-0.1); BASOPHILS % (AUTO) 0 % (0-1); EOSINOPHILS % (AUTO) 4 % (1-7); LYMPHOCYTES # (AUTO) 1.14 x10^3/uL (1-3.4); LYMPHOCYTES % (AUTO) 10 % (22-44); MD NO; MEAN CORPUSCULAR HEMOGLOBIN 28.9 pg (27.5-34.5); MEAN CORPUSCULAR HGB CONC 32.8 g/dL (33.2-36.2); MEAN CORPUSCULAR VOLUME 87.9 fL (81-97); MEAN PLATELET VOLUME 7.4 fL (7.4-10.4); MONOCYTES # (AUTO) 1.16 x10^3/uL (0.2-0.8); MONOCYTES % (AUTO) 10 % (2-9); NEUTROPHILS # (AUTO) 8.56 x10^3/uL (1.8-6.8); NEUTROPHILS % (AUTO) 76 % (42-75); PLATELET COUNT 311 x10^3/uL (130-400); RED BLOOD COUNT 2.98 x10^6/uL (4.38-5.82); RED CELL DISTRIBUTION WIDTH 15.7 % (9.4-14.8)
[2019-09-23 11:03] LABS: ALANINE AMINOTRANSFERASE 32 U/L (12-78); ALBUMIN 2.5 g/dL (3.4-5.0); ANION GAP 16 mmol/L (5-15); CALCIUM 10.6 mg/dL (8.5-10.1); CHLORIDE 88 mmol/L (98-107); CREATININE 3.08 mg/dL (0.7-1.3)
[2019-09-23 11:05] LABS: ALKALINE PHOSPHATASE 220 U/L (45-117); BILIRUBIN,TOTAL 0.3 mg/dL (0.2-1.0); TOTAL PROTEIN 7.6 g/dL (6.4-8.2)
[2019-09-23 14:16] VITALS: BP 115/77
[2019-09-23] MEDS: METOCLOPRAMIDE 5 MG/ML, 2ML IV PRN (15:50)
[2019-09-23] MEDS: SIMETHICONE 80 MG CHEW TAB PO PRN (15:58)
[2019-09-23] MEDS: SCOPOLAMINE PATCH, 1.5MG PATCH.TD72 TD SCH (21:50)
[2019-09-23 22:13] VITALS: BP 130/86
[2019-09-23] MEDS: METHYLNALTREXONE 12 MG/0.6 ML SYR SQ SCH (22:32)
[2019-09-24] MEDS: ONDANSETRON 2MG/ML, 2ML IVPush SCH ×4 (00:03→17:58)
[2019-09-24] MEDS: TRAZODONE 100MG TABLET PO PRN (00:03)
[2019-09-24] MEDS: METOCLOPRAMIDE 5 MG/ML, 2ML IV PRN ×2 (00:11→16:22)
[2019-09-24 03:55] VITALS: BP 103/70
[2019-09-24] MEDS: INSULIN LISPRO 100 UNITS/ML, PEN SQ-INSULIN SCH ×4 (04:01→21:10)
[2019-09-24] MEDS: OXYcodone 5 MG/5 ML ORAL.SOL UDC PO PRN ×5 (04:02→23:11)
[2019-09-24] MEDS: LORazepam 1MG TABLET PO PRN (04:03)
[2019-09-24] MEDS: HEPARIN 5,000 UNITS/ML, 1ML SQ SCH ×3 (06:36→23:12)
[2019-09-24 07:52] VITALS: BP 112/73
[2019-09-24] MEDS: SEVELAMER 2.4 GM POWD.PACK JT SCH ×3 (07:55→17:17)
[2019-09-24 08:00] VITALS: BP 106/72
[2019-09-24] MEDS: FUROSEMIDE 40 MG/4 ML IV SCH ×2 (08:56→21:02)
[2019-09-24] MEDS: FAMOTIDINE 20 MG/2 ML IVPush SCH (08:56)
[2019-09-24] MEDS: BUPROPION 100 MG TABLET PO SCH ×2 (08:57→21:02)
[2019-09-24] MEDS: MAGNESIUM OXIDE 400 MG TABLET PO SCH (08:57)
[2019-09-24] MEDS: DULOXETINE 30 MG CAPSULE.DR PO SCH (08:57)
[2019-09-24] MEDS: DOCUSATE 50 MG/5 ML, 10ML UDC PO SCH ×2 (08:58→21:02)
[2019-09-24] MEDS: LACTULOSE 20 GM/30 ML UDC PO SCH (08:58)
[2019-09-24] MEDS: GABAPENTIN 250 MG/5 ML ORAL SOL PO SCH ×3 (08:58→23:11)
[2019-09-24] MEDS: SODIUM CHLORIDE FLUSH 10ML SYR IVF SCH (08:59)
[2019-09-24] MEDS: MIDODRINE 5 MG TABLET PO SCH ×4 (09:00→21:02)
[2019-09-24] MEDS: INSULIN GLARGINE 100 UNITS/ML, PEN SQ-INSULIN SCH ×2 (09:08→21:08)
[2019-09-24] MEDS ORDERED: LIDOCAINE-MPF 2%, 2ML INFIL STA (11:18)
[2019-09-24] MEDS ORDERED: LIDOCAINE 1%, 2ML INFIL STA (11:21)
[2019-09-24] MEDS: SIMETHICONE 80 MG CHEW TAB PO PRN (13:38)
[2019-09-24 15:58] VITALS: BP 98/69
[2019-09-24] MEDS: FENTANYL 75 MCG PATCH TD SCH (16:05)
[2019-09-24] MEDS: FENTANYL REMOVE PATCH NOTE XX SCH (16:07)
[2019-09-24 20:43] VITALS: BP 96/68
[2019-09-24] MEDS: METHYLNALTREXONE 12 MG/0.6 ML SYR SQ SCH (22:30)
[2019-09-25] MEDS: TRAZODONE 100MG TABLET PO PRN (00:36)
[2019-09-25] MEDS: ONDANSETRON 2MG/ML, 2ML IVPush SCH ×4 (00:36→17:34)
[2019-09-25] MEDS: METHYLNALTREXONE 12 MG/0.6 ML SYR SQ SCH ×2 (00:36→23:31)
[2019-09-25] MEDS: SIMETHICONE 80 MG CHEW TAB PO PRN ×2 (00:36→10:47)
[2019-09-25] MEDS: SODIUM CHLORIDE FLUSH 10ML SYR IVF SCH ×3 (00:37→21:00)
[2019-09-25] MEDS: INSULIN LISPRO 100 UNITS/ML, PEN SQ-INSULIN SCH ×4 (03:00→21:00)
[2019-09-25 03:33] VITALS: BP 93/71
[2019-09-25] MEDS: OXYcodone 5 MG/5 ML ORAL.SOL UDC PO PRN ×4 (04:19→20:59)
[2019-09-25] MEDS: HEPARIN 5,000 UNITS/ML, 1ML SQ SCH ×3 (07:14→23:31)
[2019-09-25 07:47] VITALS: BP 103/62
[2019-09-25] MEDS: GABAPENTIN 250 MG/5 ML ORAL SOL PO SCH ×3 (09:08→23:31)
[2019-09-25] MEDS: INSULIN GLARGINE 100 UNITS/ML, PEN SQ-INSULIN SCH ×2 (09:08→23:29)
[2019-09-25] MEDS: FAMOTIDINE 20 MG/2 ML IVPush SCH (09:08)
[2019-09-25] MEDS: SEVELAMER 2.4 GM POWD.PACK JT SCH ×3 (09:09→17:34)
[2019-09-25] MEDS: FUROSEMIDE 40 MG/4 ML IV SCH ×2 (09:09→21:00)
[2019-09-25] MEDS: DOCUSATE 50 MG/5 ML, 10ML UDC PO SCH ×2 (09:09→20:59)
[2019-09-25] MEDS: LACTULOSE 20 GM/30 ML UDC PO SCH (09:09)
[2019-09-25] MEDS: MIDODRINE 5 MG TABLET PO SCH ×3 (09:10→21:00)
[2019-09-25] MEDS: MAGNESIUM OXIDE 400 MG TABLET PO SCH (09:10)
[2019-09-25] MEDS: DULOXETINE 30 MG CAPSULE.DR PO SCH (09:10)
[2019-09-25] MEDS: BUPROPION 100 MG TABLET PO SCH ×2 (09:10→21:00)
[2019-09-25] MEDS: HYDROmorphone 2 MG/ML, 1ML IVPush PRN ×2 (09:41→10:47)
[2019-09-25] MEDS ORDERED: HYDROmorphone 2 MG/ML, 1ML ONE (10:30)
[2019-09-25 11:51] LABS: MEAN CORPUSCULAR HGB CONC 33.3 g/dL (33.2-36.2); MEAN CORPUSCULAR VOLUME 86.9 fL (81-97); MEAN PLATELET VOLUME 7.3 fL (7.4-10.4); PLATELET COUNT 327 x10^3/uL (130-400); RED CELL DISTRIBUTION WIDTH 15.2 % (9.4-14.8)
[2019-09-25 12:01] LABS: FIO2 49 %
[2019-09-25 12:03] LABS: ALANINE AMINOTRANSFERASE 30 U/L (12-78); ALBUMIN 2.5 g/dL (3.4-5.0); ANION GAP 16 mmol/L (5-15); CALCIUM 10.9 mg/dL (8.5-10.1); CHLORIDE 87 mmol/L (98-107)
[2019-09-25 12:05] LABS: ALKALINE PHOSPHATASE 216 U/L (45-117); BILIRUBIN,TOTAL 0.3 mg/dL (0.2-1.0); CREATININE 3.29 mg/dL (0.7-1.3); TOTAL PROTEIN 7.7 g/dL (6.4-8.2)
[2019-09-25 12:24] LABS: MD YES
[2019-09-25 12:26] LABS: BAND#(MANUAL) 1.07 x10^3/uL; BANDS%(MANUAL) 8 % (0-7); BASOS#(MANUAL) 0.13 x10^3/uL (0-0.1); BASOS% (MANUAL) 1 % (0-1); EOS#(MANUAL) 0.27 x10^3/uL (0.0-0.4); EOS% (MANUAL) 2 % (1-7); LYMPH#(MANUAL) 2.14 x10^3/uL (1-3.4); LYMPHS% (MANUAL) 16 % (22-44); METAMYELOCYTES# (MANUAL) 0.27 x10^3/uL (0-0); METAMYELOCYTES% (MANUAL) 2 % (0-1); MONOS#(MANUAL) 0.94 x10^3/uL (0.3-2.7); MONOS% (MANUAL) 7 % (2-9); MYELOCYTES# (MANUAL) 0.13 x10^3/uL (0-0); MYELOCYTES% (MANUAL) 1 % (0-0); SEG#(MANUAL) 8.44 x10^3/uL (1.8-6.8); SEGS% (MANUAL) 63 % (42-75)
[2019-09-25 12:27] LABS: <PLATELET ESTIMATE> ADEQUATE; <PLT MORPHOLOGY> NORMAL PLT MORPH; POLYCHROMASIA 1+
[2019-09-25 15:00] VITALS: BP 131/78
[2019-09-25 15:45] VITALS: BP 102/74
[2019-09-25 19:31] VITALS: BP 94/65
[2019-09-25] MEDS: ALBUTEROL SULFATE 2.5 MG/3 ML NPPB PRN (21:30)
[2019-09-26] MEDS: ONDANSETRON 2MG/ML, 2ML IVPush SCH ×5 (00:27→23:52)
[2019-09-26] MEDS: OXYcodone 5 MG/5 ML ORAL.SOL UDC PO PRN ×5 (00:28→21:08)
[2019-09-26 00:48] VITALS: BP 101/71
[2019-09-26] MEDS: INSULIN LISPRO 100 UNITS/ML, PEN SQ-INSULIN SCH ×4 (03:28→20:46)
[2019-09-26] MEDS: SEVELAMER 2.4 GM POWD.PACK JT SCH ×3 (07:34→16:14)
[2019-09-26] MEDS: HEPARIN 5,000 UNITS/ML, 1ML SQ SCH ×3 (07:35→23:52)
[2019-09-26 08:41] VITALS: BP 94/67
[2019-09-26] MEDS: GABAPENTIN 250 MG/5 ML ORAL SOL PO SCH ×3 (08:43→21:07)
[2019-09-26] MEDS: LACTULOSE 20 GM/30 ML UDC PO SCH (08:44)
[2019-09-26] MEDS: BUPROPION 100 MG TABLET PO SCH ×2 (08:44→21:09)
[2019-09-26] MEDS: FAMOTIDINE 20 MG/2 ML IVPush SCH (08:44)
[2019-09-26] MEDS: MAGNESIUM OXIDE 400 MG TABLET PO SCH (08:44)
[2019-09-26] MEDS: DOCUSATE 50 MG/5 ML, 10ML UDC PO SCH ×2 (08:44→21:08)
[2019-09-26] MEDS: FUROSEMIDE 40 MG/4 ML IV SCH ×2 (08:44→20:45)
[2019-09-26] MEDS: MIDODRINE 5 MG TABLET PO SCH ×3 (08:45→20:45)
[2019-09-26] MEDS: DULOXETINE 30 MG CAPSULE.DR PO SCH (08:45)
[2019-09-26] MEDS: SODIUM CHLORIDE FLUSH 10ML SYR IVF SCH ×2 (09:40→21:10)
[2019-09-26] MEDS: INSULIN GLARGINE 100 UNITS/ML, PEN SQ-INSULIN SCH ×2 (09:44→21:06)
[2019-09-26] MEDS: DARBEPOETIN 100 MCG/ML SQ SCH (10:32)
[2019-09-26] MEDS: LORazepam 1MG TABLET PO PRN (11:36)
[2019-09-26] MEDS: SIMETHICONE 80 MG CHEW TAB PO PRN (13:46)
[2019-09-26 13:51] VITALS: BP 112/75
[2019-09-26 16:18] VITALS: BP 89/56
[2019-09-26 18:01] LABS: MEAN CORPUSCULAR HGB CONC 32.9 g/dL (33.2-36.2); MEAN CORPUSCULAR VOLUME 88.1 fL (81-97); MEAN PLATELET VOLUME 7.1 fL (7.4-10.4); PLATELET COUNT 321 x10^3/uL (130-400); RED BLOOD COUNT 2.92 x10^6/uL (4.38-5.82); RED CELL DISTRIBUTION WIDTH 15.5 % (9.4-14.8)
[2019-09-26 18:02] LABS: HCT (SEDRATE) 25.6 % (39.2-51.8)
[2019-09-26 18:13] LABS: CHLORIDE 91 mmol/L (98-107); MD YES
[2019-09-26 18:37] LABS: BAND#(MANUAL) 0.87 x10^3/uL; BANDS%(MANUAL) 6 % (0-7); EOS#(MANUAL) 0.58 x10^3/uL (0.0-0.4); EOS% (MANUAL) 4 % (1-7); LYMPH#(MANUAL) 1.45 x10^3/uL (1-3.4); LYMPHS% (MANUAL) 10 % (22-44); MONOS#(MANUAL) 1.31 x10^3/uL (0.3-2.7); MONOS% (MANUAL) 9 % (2-9); SEGS% (MANUAL) 71 % (42-75)
[2019-09-26 18:40] LABS: ROULEAUX 1+
[2019-09-26 18:44] LABS: ALANINE AMINOTRANSFERASE 26 U/L (12-78); ALBUMIN 2.3 g/dL (3.4-5.0); ALKALINE PHOSPHATASE 212 U/L (45-117); ANION GAP 14 mmol/L (5-15); BILIRUBIN,TOTAL 0.3 mg/dL (0.2-1.0); CALCIUM 10.5 mg/dL (8.5-10.1); CREATININE 2.77 mg/dL (0.7-1.3); TOTAL PROTEIN 7.5 g/dL (6.4-8.2)
[2019-09-26 18:46] LABS: POLYCHROMASIA 1+
[2019-09-26 18:47] LABS: ANISOCYTOSIS 1+; BASOPHILLIC STIPPLING 1+
[2019-09-26 18:48] LABS: <PLATELET ESTIMATE> ADEQUATE; <PLT MORPHOLOGY> NORMAL PLT MORPH
[2019-09-26 20:02] VITALS: BP 84/52
[2019-09-26] MEDS: ALBUTEROL SULFATE 2.5 MG/3 ML NPPB PRN (20:45)
[2019-09-26 20:57] VITALS: BP 98/58
[2019-09-26] MEDS: SCOPOLAMINE PATCH, 1.5MG PATCH.TD72 TD SCH (21:09)
[2019-09-26] MEDS: TRAZODONE 100MG TABLET PO PRN (21:09)
[2019-09-26] MEDS: METHYLNALTREXONE 12 MG/0.6 ML SYR SQ SCH (23:03)
[2019-09-27] MEDS: OXYcodone 5 MG/5 ML ORAL.SOL UDC PO PRN ×5 (00:45→21:00)
[2019-09-27] MEDS: INSULIN LISPRO 100 UNITS/ML, PEN SQ-INSULIN SCH ×4 (03:00→20:51)
[2019-09-27] MEDS: ONDANSETRON 2MG/ML, 2ML IVPush SCH ×3 (06:38→18:01)
[2019-09-27 08:20] VITALS: BP 90/61
[2019-09-27] MEDS: SEVELAMER 2.4 GM POWD.PACK JT SCH ×3 (08:34→17:22)
[2019-09-27] MEDS: HEPARIN 5,000 UNITS/ML, 1ML SQ SCH ×2 (08:39→15:58)
[2019-09-27] MEDS: FUROSEMIDE 40 MG/4 ML IV SCH ×2 (09:00→21:02)
[2019-09-27 09:30] VITALS: BP 95/62
[2019-09-27] MEDS: MIDODRINE 5 MG TABLET PO SCH ×3 (09:58→20:51)
[2019-09-27] MEDS: FAMOTIDINE 20 MG/2 ML IVPush SCH (10:02)
[2019-09-27] MEDS: HYDROmorphone 2 MG/ML, 1ML IVPush PRN (10:02)
[2019-09-27] MEDS: SODIUM CHLORIDE FLUSH 10ML SYR IVF SCH ×2 (10:03→21:01)
[2019-09-27] MEDS: BUPROPION 100 MG TABLET PO SCH ×2 (10:04→21:01)
[2019-09-27] MEDS: MAGNESIUM OXIDE 400 MG TABLET PO SCH (10:15)
[2019-09-27] MEDS: DULOXETINE 30 MG CAPSULE.DR PO SCH (10:16)
[2019-09-27] MEDS: GABAPENTIN 250 MG/5 ML ORAL SOL PO SCH ×3 (11:15→20:59)
[2019-09-27] MEDS: DOCUSATE 50 MG/5 ML, 10ML UDC PO SCH ×2 (11:19→21:00)
[2019-09-27] MEDS: LACTULOSE 20 GM/30 ML UDC PO SCH (11:20)
[2019-09-27] MEDS: INSULIN GLARGINE 100 UNITS/ML, PEN SQ-INSULIN SCH ×2 (11:23→21:06)
[2019-09-27 15:27] VITALS: BP 104/68
[2019-09-27] MEDS: FENTANYL 75 MCG PATCH TD SCH (16:06)
[2019-09-27] MEDS: FENTANYL REMOVE PATCH NOTE XX SCH (16:08)
[2019-09-27 20:48] VITALS: BP 106/72
[2019-09-27] MEDS: TRAZODONE 100MG TABLET PO PRN (21:00)
[2019-09-28] MEDS: ONDANSETRON 2MG/ML, 2ML IVPush SCH ×5 (00:07→22:12)
[2019-09-28] MEDS: HEPARIN 5,000 UNITS/ML, 1ML SQ SCH ×3 (00:07→16:31)
[2019-09-28] MEDS: METHYLNALTREXONE 12 MG/0.6 ML SYR SQ SCH (00:08)
[2019-09-28] MEDS: OXYcodone 5 MG/5 ML ORAL.SOL UDC PO PRN ×5 (01:07→22:14)
[2019-09-28] MEDS: INSULIN LISPRO 100 UNITS/ML, PEN SQ-INSULIN SCH ×4 (02:57→22:27)
[2019-09-28] MEDS: SEVELAMER 2.4 GM POWD.PACK JT SCH ×3 (08:49→16:31)
[2019-09-28 08:58] VITALS: BP 101/69
[2019-09-28] MEDS: SODIUM CHLORIDE FLUSH 10ML SYR IVF SCH ×2 (08:59→22:10)
[2019-09-28] MEDS: FUROSEMIDE 40 MG/4 ML IV SCH (08:59)
[2019-09-28] MEDS: DOCUSATE 50 MG/5 ML, 10ML UDC PO SCH ×2 (08:59→22:11)
[2019-09-28] MEDS: DULOXETINE 30 MG CAPSULE.DR PO SCH (08:59)
[2019-09-28] MEDS: FAMOTIDINE 20 MG/2 ML IVPush SCH (08:59)
[2019-09-28] MEDS: LACTULOSE 20 GM/30 ML UDC PO SCH (08:59)
[2019-09-28] MEDS: GABAPENTIN 250 MG/5 ML ORAL SOL PO SCH ×3 (09:00→22:11)
[2019-09-28] MEDS: MAGNESIUM OXIDE 400 MG TABLET PO SCH (09:00)
[2019-09-28] MEDS: INSULIN GLARGINE 100 UNITS/ML, PEN SQ-INSULIN SCH ×2 (09:01→22:27)
[2019-09-28] MEDS: BUPROPION 100 MG TABLET PO SCH ×2 (09:01→22:11)
[2019-09-28] MEDS: MIDODRINE 5 MG TABLET PO SCH ×3 (09:01→22:12)
[2019-09-28 10:39] LABS: MEAN CORPUSCULAR HEMOGLOBIN 28.5 pg (27.5-34.5); MEAN CORPUSCULAR HGB CONC 32.5 g/dL (33.2-36.2); MEAN CORPUSCULAR VOLUME 87.6 fL (81-97); MEAN PLATELET VOLUME 7.1 fL (7.4-10.4); PLATELET COUNT 306 x10^3/uL (130-400); RED BLOOD COUNT 2.98 x10^6/uL (4.38-5.82); RED CELL DISTRIBUTION WIDTH 15.8 % (9.4-14.8)
[2019-09-28 10:48] LABS: ANION GAP 13 mmol/L (5-15); CALCIUM 10.6 mg/dL (8.5-10.1); CHLORIDE 96 mmol/L (98-107); CREATININE 2.82 mg/dL (0.7-1.3)
[2019-09-28 10:53] LABS: MD YES
[2019-09-28 11:00] LABS: BAND#(MANUAL) 0.79 x10^3/uL; BANDS%(MANUAL) 5 % (0-7); BASOS#(MANUAL) 0.16 x10^3/uL (0-0.1); BASOS% (MANUAL) 1 % (0-1); EOS#(MANUAL) 0.47 x10^3/uL (0.0-0.4); EOS% (MANUAL) 3 % (1-7); LYMPH#(MANUAL) 1.42 x10^3/uL (1-3.4); LYMPHS% (MANUAL) 9 % (22-44); MONOS#(MANUAL) 0.63 x10^3/uL (0.3-2.7); MONOS% (MANUAL) 4 % (2-9); SEG#(MANUAL) 12.32 x10^3/uL (1.8-6.8); SEGS% (MANUAL) 78 % (42-75)
[2019-09-28 11:01] LABS: ANISOCYTOSIS 1+; POLYCHROMASIA 1+
[2019-09-28 11:03] LABS: <PLATELET ESTIMATE> ADEQUATE; <PLT MORPHOLOGY> NORMAL PLT MORPH
[2019-09-28 14:45] VITALS: BP 92/61
[2019-09-28] MEDS: SIMETHICONE 80 MG CHEW TAB PO PRN (15:23)
[2019-09-28 19:59] VITALS: BP 108/74
[2019-09-28] MEDS: METOCLOPRAMIDE 5 MG/ML, 2ML IV PRN (22:27)
[2019-09-29] MEDS: HEPARIN 5,000 UNITS/ML, 1ML SQ SCH ×4 (00:21→20:21)
[2019-09-29] MEDS: TRAZODONE 100MG TABLET PO PRN (00:21)
[2019-09-29] MEDS: METHYLNALTREXONE 12 MG/0.6 ML SYR SQ SCH (01:54)
[2019-09-29] MEDS: LORazepam 1MG TABLET PO PRN ×2 (03:25→21:22)
[2019-09-29] MEDS: OXYcodone 5 MG/5 ML ORAL.SOL UDC PO PRN ×3 (03:25→20:20)
[2019-09-29] MEDS: ONDANSETRON 2MG/ML, 2ML IVPush SCH ×4 (03:34→21:22)
[2019-09-29 03:35] VITALS: BP 106/74
[2019-09-29] MEDS: INSULIN LISPRO 100 UNITS/ML, PEN SQ-INSULIN SCH ×4 (03:40→22:26)
[2019-09-29] MEDS: BUPROPION 100 MG TABLET PO SCH ×2 (08:29→21:22)
[2019-09-29] MEDS: DULOXETINE 30 MG CAPSULE.DR PO SCH (08:29)
[2019-09-29] MEDS: MAGNESIUM OXIDE 400 MG TABLET PO SCH (08:29)
[2019-09-29] MEDS: DOCUSATE 50 MG/5 ML, 10ML UDC PO SCH ×2 (08:32→21:22)
[2019-09-29] MEDS: FAMOTIDINE 40 MG/5 ML ORAL SUSP NG SCH (08:32)
[2019-09-29] MEDS: MIDODRINE 5 MG TABLET PO SCH ×3 (08:32→21:23)
[2019-09-29 08:33] VITALS: BP 95/64
[2019-09-29] MEDS: GABAPENTIN 250 MG/5 ML ORAL SOL PO SCH ×3 (08:33→21:23)
[2019-09-29] MEDS: SODIUM CHLORIDE FLUSH 10ML SYR IVF SCH ×2 (08:33→21:23)
[2019-09-29] MEDS: SEVELAMER 2.4 GM POWD.PACK JT SCH ×3 (08:33→16:51)
[2019-09-29] MEDS: INSULIN GLARGINE 100 UNITS/ML, PEN SQ-INSULIN SCH ×2 (09:02→22:26)
[2019-09-29] MEDS ORDERED: LIDOCAINE 2%-EPI 1:100K, 30ML INFIL STA (10:01)
[2019-09-29] MEDS: HYDROmorphone 2 MG/ML, 1ML IVPush PRN (10:24)
[2019-09-29] MEDS ORDERED: OMNIPAQUE 350 MG/ML, 150 ML BOTTLE ONE (14:20)
[2019-09-29 14:29] VITALS: BP 100/50
[2019-09-29 16:48] VITALS: BP 95/59
[2019-09-29 19:06] VITALS: BP 104/72
[2019-09-29] MEDS: METOCLOPRAMIDE 5 MG/ML, 2ML IV PRN (21:22)
[2019-09-30 03:32] VITALS: BP 114/76
[2019-09-30] MEDS: SCOPOLAMINE PATCH, 1.5MG PATCH.TD72 TD SCH (03:41)
[2019-09-30] MEDS: METHYLNALTREXONE 12 MG/0.6 ML SYR SQ SCH (03:41)
[2019-09-30] MEDS: INSULIN LISPRO 100 UNITS/ML, PEN SQ-INSULIN SCH ×4 (03:41→22:23)
[2019-09-30] MEDS: ONDANSETRON 2MG/ML, 2ML IVPush SCH ×4 (04:30→21:58)
[2019-09-30] MEDS: ACETAMINOPHEN 650 MG/20.3 ML UDC PO PRN (04:30)
[2019-09-30] MEDS: OXYcodone 5 MG/5 ML ORAL.SOL UDC PO PRN ×4 (04:30→22:14)
[2019-09-30] MEDS: HEPARIN 5,000 UNITS/ML, 1ML SQ SCH ×3 (04:55→21:59)
[2019-09-30 07:56] VITALS: BP 116/79
[2019-09-30 08:03] VITALS: BP 105/67
[2019-09-30] MEDS: SEVELAMER 2.4 GM POWD.PACK JT SCH ×3 (08:05→17:16)
[2019-09-30] MEDS: SODIUM CHLORIDE FLUSH 10ML SYR IVF SCH ×2 (08:06→22:00)
[2019-09-30] MEDS: MIDODRINE 5 MG TABLET PO SCH ×3 (08:06→21:59)
[2019-09-30] MEDS: DULOXETINE 30 MG CAPSULE.DR PO SCH (08:06)
[2019-09-30] MEDS: DOCUSATE 50 MG/5 ML, 10ML UDC PO SCH ×2 (08:06→21:58)
[2019-09-30] MEDS: FAMOTIDINE 40 MG/5 ML ORAL SUSP NG SCH (08:06)
[2019-09-30] MEDS: GABAPENTIN 250 MG/5 ML ORAL SOL PO SCH ×3 (08:06→21:59)
[2019-09-30] MEDS: BUPROPION 100 MG TABLET PO SCH ×2 (08:06→21:59)
[2019-09-30] MEDS: MAGNESIUM OXIDE 400 MG TABLET PO SCH (08:06)
[2019-09-30] MEDS: INSULIN GLARGINE 100 UNITS/ML, PEN SQ-INSULIN SCH ×2 (09:01→22:23)
[2019-09-30 09:37] LABS: BASOPHILS # (AUTO) 0.03 x10^3/uL (0-0.1); BASOPHILS % (AUTO) 0 % (0-1); EOSINOPHILS # (AUTO) 0.39 x10^3/uL (0-0.4); EOSINOPHILS % (AUTO) 3 % (1-7); LYMPHOCYTES # (AUTO) 1.53 x10^3/uL (1-3.4); LYMPHOCYTES % (AUTO) 10 % (22-44); MD NO; MEAN CORPUSCULAR HEMOGLOBIN 28.7 pg (27.5-34.5); MEAN CORPUSCULAR HGB CONC 32.8 g/dL (33.2-36.2); MEAN CORPUSCULAR VOLUME 87.4 fL (81-97); MEAN PLATELET VOLUME 6.7 fL (7.4-10.4); MONOCYTES # (AUTO) 1.27 x10^3/uL (0.2-0.8); MONOCYTES % (AUTO) 8 % (2-9); NEUTROPHILS # (AUTO) 12.51 x10^3/uL (1.8-6.8); NEUTROPHILS % (AUTO) 80 % (42-75); PLATELET COUNT 309 x10^3/uL (130-400); RED BLOOD COUNT 2.75 x10^6/uL (4.38-5.82); RED CELL DISTRIBUTION WIDTH 15.7 % (9.4-14.8)
[2019-09-30 09:48] LABS: ANION GAP 12 mmol/L (5-15); CALCIUM 10.8 mg/dL (8.5-10.1); CHLORIDE 91 mmol/L (98-107); CREATININE 3.09 mg/dL (0.7-1.3)
[2019-09-30] MEDS: ALBUMIN HUMAN 25% 100 ML IV PRN (12:09)
[2019-09-30 14:09] VITALS: BP 95/65
[2019-09-30] MEDS: FENTANYL 75 MCG PATCH TD SCH (16:18)
[2019-09-30] MEDS: FENTANYL REMOVE PATCH NOTE XX SCH (16:18)
[2019-09-30 21:32] VITALS: BP 91/62
[2019-10-01 00:05] VITALS: BP 86/56
[2019-10-01] MEDS: OXYcodone 5 MG/5 ML ORAL.SOL UDC PO PRN ×5 (01:35→22:03)
[2019-10-01] MEDS: LORazepam 1MG TABLET PO PRN (01:35)
[2019-10-01] MEDS: ONDANSETRON 2MG/ML, 2ML IVPush SCH ×4 (03:33→20:33)
[2019-10-01] MEDS: INSULIN LISPRO 100 UNITS/ML, PEN SQ-INSULIN SCH ×4 (03:34→20:34)
[2019-10-01] MEDS: METHYLNALTREXONE 12 MG/0.6 ML SYR SQ SCH (03:34)
[2019-10-01] MEDS: LACTULOSE 20 GM/30 ML UDC PO PRN (04:08)
[2019-10-01] MEDS: HEPARIN 5,000 UNITS/ML, 1ML SQ SCH ×3 (04:09→20:34)
[2019-10-01] MEDS: SIMETHICONE 80 MG CHEW TAB PO PRN (04:09)
[2019-10-01 06:43] VITALS: BP 100/64
[2019-10-01] MEDS: MAGNESIUM OXIDE 400 MG TABLET PO SCH (08:41)
[2019-10-01] MEDS: DOCUSATE 50 MG/5 ML, 10ML UDC PO SCH ×2 (08:41→20:33)
[2019-10-01] MEDS: FAMOTIDINE 40 MG/5 ML ORAL SUSP NG SCH (08:49)
[2019-10-01] MEDS: GABAPENTIN 250 MG/5 ML ORAL SOL PO SCH ×3 (08:49→20:34)
[2019-10-01] MEDS: SEVELAMER 2.4 GM POWD.PACK JT SCH ×3 (08:49→16:36)
[2019-10-01] MEDS: SODIUM CHLORIDE FLUSH 10ML SYR IVF SCH ×2 (08:50→20:33)
[2019-10-01] MEDS: DULOXETINE 30 MG CAPSULE.DR PO SCH (08:50)
[2019-10-01] MEDS: MIDODRINE 5 MG TABLET PO SCH ×3 (08:51→20:33)
[2019-10-01] MEDS: BUPROPION 100 MG TABLET PO SCH ×2 (08:51→20:32)
[2019-10-01] MEDS: INSULIN GLARGINE 100 UNITS/ML, PEN SQ-INSULIN SCH ×2 (09:41→22:06)
[2019-10-01 13:01] VITALS: BP 94/62
[2019-10-01 16:45] VITALS: BP 101/67
[2019-10-01 20:23] VITALS: BP 100/64
[2019-10-02 02:30] VITALS: BP 110/67
[2019-10-02] MEDS: INSULIN LISPRO 100 UNITS/ML, PEN SQ-INSULIN SCH ×4 (03:18→20:10)
[2019-10-02] MEDS: ONDANSETRON 2MG/ML, 2ML IVPush SCH ×4 (03:27→20:11)
[2019-10-02] MEDS: METHYLNALTREXONE 12 MG/0.6 ML SYR SQ SCH (03:27)
[2019-10-02] MEDS: HEPARIN 5,000 UNITS/ML, 1ML SQ SCH ×3 (03:50→22:21)
[2019-10-02] MEDS: OXYcodone 5 MG/5 ML ORAL.SOL UDC PO PRN ×3 (03:50→16:49)
[2019-10-02] MEDS ORDERED: FLU VACC QS2019-20 36MOS UP/PF 0.5 ML IM-VACC ONE (05:00)
[2019-10-02] MEDS: METOCLOPRAMIDE 5 MG/ML, 2ML IV PRN (05:51)
[2019-10-02 08:10] VITALS: BP 101/67
[2019-10-02] MEDS: FAMOTIDINE 40 MG/5 ML ORAL SUSP NG SCH (08:33)
[2019-10-02] MEDS: SEVELAMER 2.4 GM POWD.PACK JT SCH ×3 (08:33→16:49)
[2019-10-02] MEDS: BUPROPION 100 MG TABLET PO SCH ×2 (08:34→20:11)
[2019-10-02] MEDS: DOCUSATE 50 MG/5 ML, 10ML UDC PO SCH ×2 (08:34→20:10)
[2019-10-02] MEDS: GABAPENTIN 250 MG/5 ML ORAL SOL PO SCH ×3 (08:34→20:11)
[2019-10-02] MEDS: DULOXETINE 30 MG CAPSULE.DR PO SCH (08:34)
[2019-10-02] MEDS: MAGNESIUM OXIDE 400 MG TABLET PO SCH (08:34)
[2019-10-02] MEDS: SODIUM CHLORIDE FLUSH 10ML SYR IVF SCH ×2 (08:35→20:11)
[2019-10-02] MEDS: MIDODRINE 5 MG TABLET PO SCH ×3 (08:37→20:11)
[2019-10-02] MEDS: INSULIN GLARGINE 100 UNITS/ML, PEN SQ-INSULIN SCH ×2 (10:02→20:15)
[2019-10-02] MEDS: HYDROmorphone 2 MG/ML, 1ML IVPush PRN (10:05)
[2019-10-02 13:19] LABS: MEAN CORPUSCULAR HEMOGLOBIN 29.4 pg (27.5-34.5); MEAN CORPUSCULAR HGB CONC 33.4 g/dL (33.2-36.2); MEAN CORPUSCULAR VOLUME 88.2 fL (81-97); MEAN PLATELET VOLUME 6.6 fL (7.4-10.4); PLATELET COUNT 294 x10^3/uL (130-400); RED BLOOD COUNT 2.52 x10^6/uL (4.38-5.82); RED CELL DISTRIBUTION WIDTH 15.9 % (9.4-14.8)
[2019-10-02 13:21] LABS: ALANINE AMINOTRANSFERASE 22 U/L (12-78); ALBUMIN 2.1 g/dL (3.4-5.0); ANION GAP 9 mmol/L (5-15); CALCIUM 9.7 mg/dL (8.5-10.1); CHLORIDE 96 mmol/L (98-107); CREATININE 2.68 mg/dL (0.7-1.3)
[2019-10-02 13:28] LABS: ALKALINE PHOSPHATASE 209 U/L (45-117); BILIRUBIN,TOTAL 0.3 mg/dL (0.2-1.0); HCT (SEDRATE) 22.2 % (39.2-51.8); TOTAL PROTEIN 6.7 g/dL (6.4-8.2)
[2019-10-02 13:35] LABS: BASOPHILS # (AUTO) 0.13 x10^3/uL (0-0.1); BASOPHILS % (AUTO) 1 % (0-1); EOSINOPHILS # (AUTO) 0.23 x10^3/uL (0-0.4); EOSINOPHILS % (AUTO) 2 % (1-7); LYMPHOCYTES % (AUTO) 11 % (22-44); MD SCAN; MONOCYTES # (AUTO) 0.82 x10^3/uL (0.2-0.8); MONOCYTES % (AUTO) 7 % (2-9); NEUTROPHILS # (AUTO) 9.72 x10^3/uL (1.8-6.8); NEUTROPHILS % (AUTO) 79 % (42-75)
[2019-10-02 16:02] VITALS: BP 95/46
[2019-10-02 17:00] VITALS: BP 91/61
[2019-10-02 19:42] VITALS: BP 105/69
[2019-10-02] MEDS ORDERED: OXYcodone 5 MG/5 ML ORAL.SOL UDC JT ONE (20:00)
[2019-10-03] MEDS: OXYcodone 5 MG/5 ML ORAL.SOL UDC PO PRN ×5 (00:10→20:20)
[2019-10-03 01:49] VITALS: BP 106/65
[2019-10-03] MEDS: METOCLOPRAMIDE 5 MG/ML, 2ML IV PRN (01:52)
[2019-10-03] MEDS: INSULIN LISPRO 100 UNITS/ML, PEN SQ-INSULIN SCH ×4 (02:58→21:00)
[2019-10-03] MEDS: ONDANSETRON 2MG/ML, 2ML IVPush SCH ×4 (03:06→21:14)
[2019-10-03] MEDS: METHYLNALTREXONE 12 MG/0.6 ML SYR SQ SCH (03:07)
[2019-10-03] MEDS: HEPARIN 5,000 UNITS/ML, 1ML SQ SCH ×3 (05:10→21:13)
[2019-10-03 07:36] VITALS: BP 97/65
[2019-10-03] MEDS: SEVELAMER 2.4 GM POWD.PACK JT SCH ×3 (08:00→17:03)
[2019-10-03] MEDS: GABAPENTIN 250 MG/5 ML ORAL SOL PO SCH ×3 (08:13→21:12)
[2019-10-03] MEDS: MIDODRINE 5 MG TABLET PO SCH ×3 (08:16→21:13)
[2019-10-03] MEDS: SODIUM CHLORIDE FLUSH 10ML SYR IVF SCH ×2 (08:16→21:17)
[2019-10-03] MEDS: INSULIN GLARGINE 100 UNITS/ML, PEN SQ-INSULIN SCH ×2 (08:50→21:16)
[2019-10-03] MEDS: DARBEPOETIN 100 MCG/ML SQ SCH (08:51)
[2019-10-03] MEDS: DARBEPOETIN 25 MCG/ML SQ SCH (08:51)
[2019-10-03] MEDS: ALBUMIN HUMAN 25% 100 ML IV PRN (10:40)
[2019-10-03] MEDS: BUPROPION 100 MG TABLET PO SCH ×2 (11:51→21:11)
[2019-10-03] MEDS: MAGNESIUM OXIDE 400 MG TABLET PO SCH (11:51)
[2019-10-03] MEDS: DOCUSATE 50 MG/5 ML, 10ML UDC PO SCH ×2 (11:51→21:11)
[2019-10-03] MEDS: DULOXETINE 30 MG CAPSULE.DR PO SCH (11:51)
[2019-10-03] MEDS: FAMOTIDINE 40 MG/5 ML ORAL SUSP NG SCH (11:51)
[2019-10-03 12:28] VITALS: BP 106/70
[2019-10-03 15:45] VITALS: BP 95/64
[2019-10-03] MEDS: FENTANYL REMOVE PATCH NOTE XX SCH (15:58)
[2019-10-03] MEDS: FENTANYL 75 MCG PATCH TD SCH (15:58)
[2019-10-03 20:00] VITALS: BP 106/72
[2019-10-04] MEDS: OXYcodone 5 MG/5 ML ORAL.SOL UDC PO PRN ×5 (00:20→20:34)
[2019-10-04] MEDS: INSULIN LISPRO 100 UNITS/ML, PEN SQ-INSULIN SCH ×4 (03:00→20:56)
[2019-10-04] MEDS: ONDANSETRON 2MG/ML, 2ML IVPush SCH ×4 (03:16→20:56)
[2019-10-04] MEDS: METHYLNALTREXONE 12 MG/0.6 ML SYR SQ SCH (03:19)
[2019-10-04 03:31] VITALS: BP 106/71
[2019-10-04 05:26] LABS: MEAN CORPUSCULAR HEMOGLOBIN 28.8 pg (27.5-34.5); MEAN CORPUSCULAR HGB CONC 32.3 g/dL (33.2-36.2); MEAN CORPUSCULAR VOLUME 89.1 fL (81-97); MEAN PLATELET VOLUME 6.6 fL (7.4-10.4); PLATELET COUNT 308 x10^3/uL (130-400); RED BLOOD COUNT 2.55 x10^6/uL (4.38-5.82); RED CELL DISTRIBUTION WIDTH 15.9 % (9.4-14.8)
[2019-10-04] MEDS: HEPARIN 5,000 UNITS/ML, 1ML SQ SCH ×3 (05:43→21:39)
[2019-10-04] MEDS: SIMETHICONE 80 MG CHEW TAB PO PRN (05:44)
[2019-10-04 05:55] LABS: BASOPHILS # (AUTO) 0.03 x10^3/uL (0-0.1); BASOPHILS % (AUTO) 0 % (0-1); EOSINOPHILS % (AUTO) 3 % (1-7); LYMPHOCYTES # (AUTO) 1.22 x10^3/uL (1-3.4); LYMPHOCYTES % (AUTO) 12 % (22-44); MD SCAN; MONOCYTES % (AUTO) 10 % (2-9); NEUTROPHILS # (AUTO) 7.89 x10^3/uL (1.8-6.8); NEUTROPHILS % (AUTO) 76 % (42-75)
[2019-10-04 07:31] VITALS: BP 110/74
[2019-10-04] MEDS: SEVELAMER 2.4 GM POWD.PACK JT SCH ×3 (08:24→17:26)
[2019-10-04] MEDS ORDERED: FAMOTIDINE 20 MG TABLET ONE (08:33)
[2019-10-04] MEDS: FAMOTIDINE 40 MG/5 ML ORAL SUSP NG SCH (09:13)
[2019-10-04] MEDS: SODIUM CHLORIDE FLUSH 10ML SYR IVF SCH ×2 (09:13→20:56)
[2019-10-04] MEDS: GABAPENTIN 250 MG/5 ML ORAL SOL PO SCH ×3 (09:14→20:56)
[2019-10-04] MEDS: MAGNESIUM OXIDE 400 MG TABLET PO SCH (09:14)
[2019-10-04] MEDS: DULOXETINE 30 MG CAPSULE.DR PO SCH (09:14)
[2019-10-04] MEDS: DOCUSATE 50 MG/5 ML, 10ML UDC PO SCH ×2 (09:14→20:56)
[2019-10-04] MEDS: MIDODRINE 5 MG TABLET PO SCH ×3 (09:16→20:56)
[2019-10-04] MEDS: BUPROPION 100 MG TABLET PO SCH ×2 (09:16→20:56)
[2019-10-04] MEDS: INSULIN GLARGINE 100 UNITS/ML, PEN SQ-INSULIN SCH ×2 (09:19→20:57)
[2019-10-04 09:20] VITALS: BP 109/72
--- NOTE | 2019-10-04 09:50 | NUR ---
GOALS REVIEWED WITH PATIENT AND POSTED ON HIS WALL. RUDY'S GOALS 1 RUDY WILL GET UP INTO THE BED CHAIR POSITION 3 X'S A DAY FOR 30 MINUTES EACH TIME WITH NURSING STAFF P.T. GOALS 1. RUDY WILL WORK WITH P.T. 2. RUDY WILL SIT ON THE EDGE OF THE BED FOR 10 MINUTES WITH PHYSICAL THERAPY. O.T. GOALS 1. RUDY WILL WORK ON FEEDING HIMSELF. 2. RUDY WILL WORK ON COVERING HIS TRACH SITE 3. RUDY WILL WEAR LEFT HAND/WRIST SUPPORT: -ECKERT BRACE DURING THE DAY. -BLUE BRACE DURING THE NIGHT. -RUDY WILL NEED HELP SUCTIONING WITH BRACE ON. SPEECH GOALS 1. RUDY WILL CONTINUE TO COMPLETE SWALLOW EXERCISES DAILY ( POSTED). NURSING GOALS 1. RUDY WILL DO DAILY ACTIVITY SHEET WITH NURSING 2. BED IN CHAIR POSITION 3X'S A DAY 3. HEAD AT 90 DEGREE ANGLE TO PREPARE FOR MEAL TIME 3. INCENTIVE SPIROMETER Addendum: 10/04/19 at 1521 by JOSE DE JESUS WEAVER PTA Amended: Links added.
[2019-10-04] MEDS: LORazepam 1MG TABLET PO PRN (09:52)
[2019-10-04] MEDS ORDERED: CHOLECALCIFEROL 400 UNITS TABLET PO SCH (10:00)
[2019-10-04] MEDS ORDERED: CHOLECALCIFEROL 400 UNITS/ML ORAL SOL PO SCH (10:10)
[2019-10-04] MEDS ORDERED: CHOLECALCIFEROL 400 UNITS/ML ORAL SOL PO ONE (12:00)
[2019-10-04] MEDS: HYDROmorphone 2 MG/ML, 1ML IVPush PRN (13:22)
[2019-10-04 16:02] VITALS: BP 123/83
[2019-10-04 20:30] VITALS: BP 101/65
[2019-10-05] MEDS: ONDANSETRON 2MG/ML, 2ML IVPush SCH ×4 (02:27→22:05)
[2019-10-05] MEDS: METHYLNALTREXONE 12 MG/0.6 ML SYR SQ SCH (02:28)
[2019-10-05] MEDS: INSULIN LISPRO 100 UNITS/ML, PEN SQ-INSULIN SCH ×4 (02:28→22:06)
[2019-10-05] MEDS: OXYcodone 5 MG/5 ML ORAL.SOL UDC PO PRN ×5 (02:28→22:04)
[2019-10-05] MEDS: HEPARIN 5,000 UNITS/ML, 1ML SQ SCH ×3 (05:56→22:05)
[2019-10-05] MEDS ORDERED: HYDROmorphone 1 MG/ML, 1ML INJ IV SCH ×2 (07:30→09:00)
[2019-10-05] MEDS: SEVELAMER 2.4 GM POWD.PACK JT SCH ×3 (08:04→16:54)
[2019-10-05] MEDS: METOCLOPRAMIDE 5 MG/ML, 2ML IV SCH ×3 (08:08→22:45)
[2019-10-05 08:13] VITALS: BP 117/80
[2019-10-05] MEDS: MIDODRINE 5 MG TABLET PO SCH ×3 (09:00→22:06)
[2019-10-05] MEDS: SODIUM CHLORIDE FLUSH 10ML SYR IVF SCH ×2 (09:00→22:04)
[2019-10-05] MEDS: INSULIN GLARGINE 100 UNITS/ML, PEN SQ-INSULIN SCH ×2 (10:02→21:56)
[2019-10-05] MEDS: PANTOPRAZOLE 40 MG IV IVPush SCH (10:04)
[2019-10-05] MEDS: BUPROPION 100 MG TABLET PO SCH ×2 (10:04→22:05)
[2019-10-05] MEDS: DULOXETINE 30 MG CAPSULE.DR PO SCH (10:04)
[2019-10-05] MEDS: MAGNESIUM OXIDE 400 MG TABLET PO SCH (10:04)
[2019-10-05] MEDS: DOCUSATE 50 MG/5 ML, 10ML UDC PO SCH ×2 (10:04→22:05)
[2019-10-05] MEDS: GABAPENTIN 250 MG/5 ML ORAL SOL PO SCH ×3 (10:05→22:46)
[2019-10-05 10:49] LABS: ANION GAP 10 mmol/L (5-15); CALCIUM 10.7 mg/dL (8.5-10.1); CHLORIDE 95 mmol/L (98-107); CREATININE 2.59 mg/dL (0.7-1.3)
[2019-10-05 10:53] LABS: MEAN CORPUSCULAR HEMOGLOBIN 28.4 pg (27.5-34.5); MEAN CORPUSCULAR HGB CONC 32.6 g/dL (33.2-36.2); MEAN CORPUSCULAR VOLUME 87.2 fL (81-97); MEAN PLATELET VOLUME 6.7 fL (7.4-10.4); PLATELET COUNT 319 x10^3/uL (130-400); RED BLOOD COUNT 2.62 x10^6/uL (4.38-5.82); RED CELL DISTRIBUTION WIDTH 15.9 % (9.4-14.8)
[2019-10-05 10:56] LABS: HCT (SEDRATE) 22.9 % (39.2-51.8)
[2019-10-05 10:59] LABS: BASOPHILS # (AUTO) 0.06 x10^3/uL (0-0.1); BASOPHILS % (AUTO) 0 % (0-1); EOSINOPHILS # (AUTO) 0.22 x10^3/uL (0-0.4); EOSINOPHILS % (AUTO) 2 % (1-7); LYMPHOCYTES # (AUTO) 1.24 x10^3/uL (1-3.4); LYMPHOCYTES % (AUTO) 9 % (22-44); MD SCAN; MONOCYTES # (AUTO) 1.02 x10^3/uL (0.2-0.8); MONOCYTES % (AUTO) 7 % (2-9); NEUTROPHILS # (AUTO) 12.15 x10^3/uL (1.8-6.8); NEUTROPHILS % (AUTO) 83 % (42-75)
[2019-10-05 15:40] VITALS: BP 94/59
[2019-10-05] MEDS: HYDROmorphone 1 MG/ML, 1ML INJ IV PRN (16:55)
[2019-10-05 18:32] VITALS: BP 116/80
[2019-10-05] MEDS: SIMETHICONE 80 MG CHEW TAB PO PRN (22:45)
[2019-10-05] MEDS: LORazepam 1MG TABLET PO PRN (22:46)
[2019-10-06 00:04] VITALS: BP 115/80
[2019-10-06] MEDS: TRAZODONE 100MG TABLET PO PRN (00:15)
[2019-10-06] MEDS: METHYLNALTREXONE 12 MG/0.6 ML SYR SQ SCH (03:41)
[2019-10-06] MEDS: ONDANSETRON 2MG/ML, 2ML IVPush SCH ×4 (03:42→22:06)
[2019-10-06] MEDS: OXYcodone 5 MG/5 ML ORAL.SOL UDC PO PRN ×5 (03:59→22:24)
[2019-10-06] MEDS: INSULIN LISPRO 100 UNITS/ML, PEN SQ-INSULIN SCH ×4 (03:59→22:45)
[2019-10-06] MEDS: HEPARIN 5,000 UNITS/ML, 1ML SQ SCH ×3 (06:30→22:06)
[2019-10-06] MEDS: METOCLOPRAMIDE 5 MG/ML, 2ML IV SCH ×2 (08:09→16:37)
[2019-10-06 09:06] VITALS: BP 112/76
[2019-10-06] MEDS: SEVELAMER 2.4 GM POWD.PACK JT SCH ×3 (09:08→16:37)
[2019-10-06] MEDS: BUPROPION 100 MG TABLET PO SCH ×2 (09:08→22:05)
[2019-10-06] MEDS: MAGNESIUM OXIDE 400 MG TABLET PO SCH (09:09)
[2019-10-06] MEDS: DULOXETINE 30 MG CAPSULE.DR PO SCH (09:10)
[2019-10-06] MEDS: MIDODRINE 5 MG TABLET PO SCH ×3 (09:10→22:05)
[2019-10-06] MEDS: SIMETHICONE 80 MG CHEW TAB PO PRN (09:11)
[2019-10-06] MEDS: DOCUSATE 50 MG/5 ML, 10ML UDC PO SCH ×2 (09:11→22:05)
[2019-10-06] MEDS: GABAPENTIN 250 MG/5 ML ORAL SOL PO SCH ×3 (09:12→22:06)
[2019-10-06] MEDS: PANTOPRAZOLE 40 MG IV IVPush SCH (09:12)
[2019-10-06] MEDS: INSULIN GLARGINE 100 UNITS/ML, PEN SQ-INSULIN SCH ×2 (09:13→22:45)
[2019-10-06] MEDS: SODIUM CHLORIDE FLUSH 10ML SYR IVF SCH ×2 (09:14→22:06)
[2019-10-06] MEDS: HYDROmorphone 2 MG/ML, 1ML IVPush PRN ×2 (09:59→14:45)
[2019-10-06] MEDS ORDERED: HYDROmorphone 1 MG/ML, 1ML INJ IM ONE (13:30)
[2019-10-06 14:41] VITALS: BP 118/77
[2019-10-06] MEDS: FENTANYL REMOVE PATCH NOTE XX SCH (15:45)
[2019-10-06] MEDS: FENTANYL 75 MCG PATCH TD SCH (16:38)
[2019-10-06 22:14] VITALS: BP 100/67
[2019-10-06] MEDS: LORazepam 1MG TABLET PO PRN (22:25)
[2019-10-07] MEDS: METOCLOPRAMIDE 5 MG/ML, 2ML IV SCH ×4 (01:20→23:27)
[2019-10-07 03:46] VITALS: BP 91/60
[2019-10-07] MEDS: METHYLNALTREXONE 12 MG/0.6 ML SYR SQ SCH (03:49)
[2019-10-07] MEDS: ONDANSETRON 2MG/ML, 2ML IVPush SCH ×4 (03:51→22:26)
[2019-10-07] MEDS: INSULIN LISPRO 100 UNITS/ML, PEN SQ-INSULIN SCH ×4 (04:18→23:05)
[2019-10-07] MEDS: HEPARIN 5,000 UNITS/ML, 1ML SQ SCH ×3 (06:42→22:26)
[2019-10-07 08:19] VITALS: BP 124/78
[2019-10-07] MEDS: OXYcodone 5 MG/5 ML ORAL.SOL UDC PO PRN ×4 (08:25→22:28)
[2019-10-07] MEDS: SEVELAMER 2.4 GM POWD.PACK JT SCH ×3 (08:26→17:14)
[2019-10-07] MEDS: DULOXETINE 30 MG CAPSULE.DR PO SCH (08:27)
[2019-10-07] MEDS: DOCUSATE 50 MG/5 ML, 10ML UDC PO SCH ×2 (08:27→22:26)
[2019-10-07] MEDS: PANTOPRAZOLE 40 MG IV IVPush SCH (08:28)
[2019-10-07] MEDS: MIDODRINE 5 MG TABLET PO SCH ×3 (08:29→22:29)
[2019-10-07] MEDS: GABAPENTIN 250 MG/5 ML ORAL SOL PO SCH ×3 (08:29→22:29)
[2019-10-07] MEDS: MAGNESIUM OXIDE 400 MG TABLET PO SCH (08:29)
[2019-10-07] MEDS: BUPROPION 100 MG TABLET PO SCH ×2 (08:30→22:30)
[2019-10-07] MEDS: SODIUM CHLORIDE FLUSH 10ML SYR IVF SCH ×2 (09:05→22:29)
[2019-10-07] MEDS: INSULIN GLARGINE 100 UNITS/ML, PEN SQ-INSULIN SCH ×2 (09:05→23:04)
[2019-10-07] MEDS: FENTANYL REMOVE PATCH NOTE XX SCH (10:48)
[2019-10-07] MEDS: FENTANYL 100 MCG PATCH TD SCH (10:48)
[2019-10-07] MEDS: LORazepam 1MG TABLET PO PRN ×2 (13:08→22:30)
[2019-10-07] MEDS: HYDROmorphone 1 MG/ML, 1ML INJ IV PRN (13:09)
[2019-10-07 13:52] VITALS: BP 101/69
[2019-10-07 18:53] VITALS: BP 98/65
[2019-10-07] MEDS ORDERED: HYDROmorphone 1 MG/ML, 1ML INJ IV ONE (22:00)
[2019-10-07] MEDS ORDERED: HYDROmorphone 2 MG/ML, 1ML IVPush ONE (22:30)
[2019-10-07] MEDS: SIMETHICONE 80 MG CHEW TAB PO PRN (23:04)
[2019-10-07] MEDS: LACTULOSE 20 GM/30 ML UDC PO PRN (23:04)
[2019-10-08 01:09] VITALS: BP 97/63
[2019-10-08] MEDS: METHYLNALTREXONE 12 MG/0.6 ML SYR SQ SCH (03:00)
[2019-10-08] MEDS: ONDANSETRON 2MG/ML, 2ML IVPush SCH ×4 (03:01→21:58)
[2019-10-08] MEDS: INSULIN LISPRO 100 UNITS/ML, PEN SQ-INSULIN SCH ×4 (03:10→21:00)
[2019-10-08] MEDS: OXYcodone 5 MG/5 ML ORAL.SOL UDC PO PRN ×5 (03:10→22:30)
[2019-10-08] MEDS: LORazepam 1MG TABLET PO PRN ×2 (05:42→16:47)
[2019-10-08] MEDS: HEPARIN 5,000 UNITS/ML, 1ML SQ SCH ×3 (06:43→22:12)
[2019-10-08] MEDS: METOCLOPRAMIDE 5 MG/ML, 2ML IV SCH ×2 (08:08→15:42)
[2019-10-08] MEDS: SEVELAMER 2.4 GM POWD.PACK JT SCH ×3 (08:09→16:47)
[2019-10-08] MEDS: MIDODRINE 5 MG TABLET PO SCH ×3 (09:00→22:01)
[2019-10-08] MEDS: SODIUM CHLORIDE FLUSH 10ML SYR IVF SCH ×2 (09:00→21:58)
[2019-10-08] MEDS: HYDROmorphone 2 MG/ML, 1ML IV PRN ×2 (09:22→23:08)
[2019-10-08 09:30] VITALS: BP 111/74
[2019-10-08] MEDS: DULOXETINE 30 MG CAPSULE.DR PO SCH (09:30)
[2019-10-08] MEDS: MAGNESIUM OXIDE 400 MG TABLET PO SCH (09:30)
[2019-10-08] MEDS: PANTOPRAZOLE 40 MG IV IVPush SCH (09:34)
[2019-10-08] MEDS: BUPROPION 100 MG TABLET PO SCH ×2 (09:34→22:00)
[2019-10-08] MEDS: DOCUSATE 50 MG/5 ML, 10ML UDC PO SCH ×2 (09:34→21:58)
[2019-10-08] MEDS: GABAPENTIN 250 MG/5 ML ORAL SOL PO SCH ×3 (09:35→22:00)
[2019-10-08] MEDS: INSULIN GLARGINE 100 UNITS/ML, PEN SQ-INSULIN SCH ×2 (09:52→22:30)
[2019-10-08 14:59] VITALS: BP 112/74
[2019-10-08 21:47] VITALS: BP 104/70
[2019-10-09] MEDS: INSULIN LISPRO 100 UNITS/ML, PEN SQ-INSULIN SCH ×4 (03:00→21:00)
[2019-10-09] MEDS: METHYLNALTREXONE 12 MG/0.6 ML SYR SQ SCH (03:26)
[2019-10-09] MEDS: ONDANSETRON 2MG/ML, 2ML IVPush SCH ×3 (03:27→18:21)
[2019-10-09 05:17] VITALS: BP 108/73
[2019-10-09] MEDS: HEPARIN 5,000 UNITS/ML, 1ML SQ SCH ×3 (06:35→21:38)
[2019-10-09 06:45] VITALS: BP 106/61
[2019-10-09] MEDS: METOCLOPRAMIDE 5 MG/ML, 2ML IV SCH ×3 (07:30→16:29)
[2019-10-09 08:39] VITALS: BP 105/70
[2019-10-09] MEDS: MIDODRINE 5 MG TABLET PO SCH ×4 (08:42→21:08)
[2019-10-09] MEDS: ALBUMIN HUMAN 25% 100 ML IV PRN (09:10)
[2019-10-09] MEDS: INSULIN GLARGINE 100 UNITS/ML, PEN SQ-INSULIN SCH ×2 (09:13→21:15)
[2019-10-09 09:29] LABS: ALANINE AMINOTRANSFERASE 32 U/L (12-78); ALBUMIN 2.3 g/dL (3.4-5.0); ANION GAP 6 mmol/L (5-15); CALCIUM 10.2 mg/dL (8.5-10.1); CHLORIDE 96 mmol/L (98-107); CREATININE 1.97 mg/dL (0.7-1.3)
[2019-10-09 09:31] LABS: ALKALINE PHOSPHATASE 173 U/L (45-117); BILIRUBIN,TOTAL 0.3 mg/dL (0.2-1.0); TOTAL PROTEIN 7.4 g/dL (6.4-8.2)
[2019-10-09 09:42] LABS: MEAN CORPUSCULAR HEMOGLOBIN 28.3 pg (27.5-34.5); MEAN CORPUSCULAR HGB CONC 32.6 g/dL (33.2-36.2); MEAN CORPUSCULAR VOLUME 86.8 fL (81-97); MEAN PLATELET VOLUME 6.5 fL (7.4-10.4); PLATELET COUNT 302 x10^3/uL (130-400); RED BLOOD COUNT 2.57 x10^6/uL (4.38-5.82); RED CELL DISTRIBUTION WIDTH 16.5 % (9.4-14.8)
[2019-10-09] MEDS: SEVELAMER 2.4 GM POWD.PACK JT SCH ×3 (09:58→16:03)
[2019-10-09 10:13] LABS: BASOPHILS # (AUTO) 0.04 x10^3/uL (0-0.1); BASOPHILS % (AUTO) 0 % (0-1); EOSINOPHILS % (AUTO) 2 % (1-7); LYMPHOCYTES # (AUTO) 0.91 x10^3/uL (1-3.4); LYMPHOCYTES % (AUTO) 8 % (22-44); MD SCAN; MONOCYTES # (AUTO) 0.81 x10^3/uL (0.2-0.8); MONOCYTES % (AUTO) 7 % (2-9); NEUTROPHILS # (AUTO) 10.19 x10^3/uL (1.8-6.8); NEUTROPHILS % (AUTO) 84 % (42-75)
[2019-10-09] MEDS: OXYcodone 5 MG/5 ML ORAL.SOL UDC PO PRN ×3 (12:15→21:01)
[2019-10-09] MEDS: GABAPENTIN 250 MG/5 ML ORAL SOL PO SCH ×3 (12:15→21:09)
[2019-10-09] MEDS: DOCUSATE 50 MG/5 ML, 10ML UDC PO SCH ×2 (12:16→21:03)
[2019-10-09] MEDS: DULOXETINE 30 MG CAPSULE.DR PO SCH (12:16)
[2019-10-09] MEDS: PANTOPRAZOLE 40 MG IV IVPush SCH (12:16)
[2019-10-09] MEDS: BUPROPION 100 MG TABLET PO SCH ×2 (12:16→21:38)
[2019-10-09] MEDS: SODIUM CHLORIDE FLUSH 10ML SYR IVF SCH ×2 (12:20→21:11)
[2019-10-09] MEDS: MAGNESIUM OXIDE 400 MG TABLET PO SCH (12:24)
[2019-10-09 13:19] VITALS: BP 108/72
[2019-10-09] MEDS: HYDROmorphone 2 MG/ML, 1ML IVPush PRN (13:30)
[2019-10-09] MEDS: HYDROmorphone 2 MG/ML, 1ML IV PRN (16:31)
[2019-10-09 21:00] VITALS: BP 102/74
[2019-10-10] MEDS: ONDANSETRON 2MG/ML, 2ML IVPush SCH ×4 (00:10→20:54)
[2019-10-10] MEDS: METOCLOPRAMIDE 5 MG/ML, 2ML IV SCH ×3 (00:39→15:59)
[2019-10-10] MEDS: OXYcodone 5 MG/5 ML ORAL.SOL UDC PO PRN ×5 (01:03→23:17)
[2019-10-10 02:26] VITALS: BP 108/78
[2019-10-10] MEDS: LORazepam 1MG TABLET PO PRN ×2 (02:55→21:00)
[2019-10-10] MEDS: METHYLNALTREXONE 12 MG/0.6 ML SYR SQ SCH (02:55)
[2019-10-10] MEDS: INSULIN LISPRO 100 UNITS/ML, PEN SQ-INSULIN SCH ×3 (02:57→21:00)
[2019-10-10] MEDS: HEPARIN 5,000 UNITS/ML, 1ML SQ SCH ×3 (06:04→21:41)
[2019-10-10] MEDS: GABAPENTIN 250 MG/5 ML ORAL SOL PO SCH ×3 (08:19→20:59)
[2019-10-10] MEDS: MIDODRINE 5 MG TABLET PO SCH ×3 (08:20→21:01)
[2019-10-10 08:21] VITALS: BP 99/68
[2019-10-10] MEDS: DOCUSATE 50 MG/5 ML, 10ML UDC PO SCH ×2 (08:32→20:58)
[2019-10-10] MEDS: SEVELAMER 2.4 GM POWD.PACK JT SCH ×3 (08:32→20:54)
[2019-10-10] MEDS: SODIUM CHLORIDE FLUSH 10ML SYR IVF SCH ×2 (08:33→21:41)
[2019-10-10] MEDS: INSULIN GLARGINE 100 UNITS/ML, PEN SQ-INSULIN SCH ×2 (10:16→21:12)
[2019-10-10] MEDS: PANTOPRAZOLE 40 MG IV IVPush SCH (13:32)
[2019-10-10] MEDS: DARBEPOETIN 25 MCG/ML SQ SCH (13:36)
[2019-10-10] MEDS: DARBEPOETIN 100 MCG/ML SQ SCH (13:36)
[2019-10-10] MEDS ORDERED: FENTANYL 50 MCG PATCH ONE (13:41)
[2019-10-10] MEDS: DULOXETINE 30 MG CAPSULE.DR PO SCH (13:46)
[2019-10-10] MEDS: BUPROPION 100 MG TABLET PO SCH ×2 (13:47→21:00)
[2019-10-10] MEDS: FENTANYL 100 MCG PATCH TD SCH (13:47)
[2019-10-10] MEDS: FENTANYL REMOVE PATCH NOTE XX SCH (13:48)
[2019-10-10 14:51] VITALS: BP 106/73
[2019-10-10] MEDS: HYDROmorphone 2 MG/ML, 1ML IV PRN (15:58)
[2019-10-10] MEDS: MAGNESIUM OXIDE 400 MG TABLET PO SCH (16:00)
[2019-10-10 20:24] VITALS: BP 101/68
[2019-10-11] MEDS: METOCLOPRAMIDE 5 MG/ML, 2ML IV SCH ×3 (00:36→16:23)
[2019-10-11] MEDS: ONDANSETRON 2MG/ML, 2ML IVPush SCH ×4 (02:49→20:54)
[2019-10-11] MEDS: METHYLNALTREXONE 12 MG/0.6 ML SYR SQ SCH (02:49)
[2019-10-11] MEDS: OXYcodone 5 MG/5 ML ORAL.SOL UDC PO PRN ×4 (04:43→20:53)
[2019-10-11 04:47] VITALS: BP 108/68
[2019-10-11] MEDS: HEPARIN 5,000 UNITS/ML, 1ML SQ SCH ×3 (05:37→21:53)
[2019-10-11] MEDS: SEVELAMER 2.4 GM POWD.PACK JT SCH ×3 (08:17→17:46)
[2019-10-11 08:19] VITALS: BP 98/66
[2019-10-11] MEDS: INSULIN LISPRO 100 UNITS/ML, PEN SQ-INSULIN SCH ×2 (09:00→20:54)
[2019-10-11] MEDS: PANTOPRAZOLE 40 MG IV IVPush SCH (09:17)
[2019-10-11] MEDS: MIDODRINE 5 MG TABLET PO SCH ×3 (09:18→20:54)
[2019-10-11] MEDS: DOCUSATE 50 MG/5 ML, 10ML UDC PO SCH ×2 (09:18→20:53)
[2019-10-11] MEDS: DULOXETINE 30 MG CAPSULE.DR PO SCH (09:18)
[2019-10-11] MEDS: MAGNESIUM OXIDE 400 MG TABLET PO SCH (09:19)
[2019-10-11] MEDS: BUPROPION 100 MG TABLET PO SCH ×2 (09:19→20:54)
[2019-10-11] MEDS: GABAPENTIN 250 MG/5 ML ORAL SOL PO SCH ×3 (09:20→20:54)
[2019-10-11] MEDS: INSULIN GLARGINE 100 UNITS/ML, PEN SQ-INSULIN SCH ×2 (09:24→20:52)
[2019-10-11] MEDS: SODIUM CHLORIDE FLUSH 10ML SYR IVF SCH ×2 (09:25→20:54)
[2019-10-11] MEDS: LACTULOSE 20 GM/30 ML UDC PO PRN (13:52)
[2019-10-11] MEDS: LORazepam 1MG TABLET PO PRN (14:00)
[2019-10-11] MEDS: HYDROmorphone 2 MG/ML, 1ML IVPush PRN (14:01)
--- NOTE | 2019-10-11 15:40 | NUR ---
PUREE/ NTL via spoon - One meal a day(Lunch) with staff - Ba tong with NTL - UP AT 90 DEGREES - 1:1 assist Addendum: 10/11/19 at 1540 by VIRIDIANA FRANCO Amended: Links added.
[2019-10-11 15:45] VITALS: BP 108/74
[2019-10-11 19:50] VITALS: BP 110/73
[2019-10-11] MEDS: SIMETHICONE 80 MG CHEW TAB PO PRN (20:54)
[2019-10-12] MEDS: METOCLOPRAMIDE 5 MG/ML, 2ML IV SCH ×3 (00:39→17:11)
[2019-10-12] MEDS: OXYcodone 5 MG/5 ML ORAL.SOL UDC PO PRN ×5 (00:48→21:19)
[2019-10-12 00:49] VITALS: BP 124/84
[2019-10-12 00:50] VITALS: BP 124/84
[2019-10-12] MEDS: METHYLNALTREXONE 12 MG/0.6 ML SYR SQ SCH (03:23)
[2019-10-12] MEDS: ONDANSETRON 2MG/ML, 2ML IVPush SCH ×4 (03:24→20:54)
[2019-10-12] MEDS: HEPARIN 5,000 UNITS/ML, 1ML SQ SCH ×3 (05:31→21:28)
[2019-10-12] MEDS: SEVELAMER 2.4 GM POWD.PACK JT SCH ×3 (08:19→17:11)
[2019-10-12 08:23] VITALS: BP 110/76
[2019-10-12] MEDS: DULOXETINE 30 MG CAPSULE.DR PO SCH (09:00)
[2019-10-12] MEDS: INSULIN LISPRO 100 UNITS/ML, PEN SQ-INSULIN SCH ×2 (09:00→21:00)
[2019-10-12] MEDS: PANTOPRAZOLE 40 MG IV IVPush SCH (09:07)
[2019-10-12] MEDS: DOCUSATE 50 MG/5 ML, 10ML UDC PO SCH ×2 (09:07→20:55)
[2019-10-12] MEDS: SODIUM CHLORIDE FLUSH 10ML SYR IVF SCH ×2 (09:07→20:56)
[2019-10-12] MEDS: MAGNESIUM OXIDE 400 MG TABLET PO SCH (09:08)
[2019-10-12] MEDS: GABAPENTIN 250 MG/5 ML ORAL SOL PO SCH ×3 (09:08→20:55)
[2019-10-12] MEDS: MIDODRINE 5 MG TABLET PO SCH ×3 (09:09→20:55)
[2019-10-12] MEDS: BUPROPION 100 MG TABLET PO SCH ×2 (09:09→20:54)
[2019-10-12] MEDS: INSULIN GLARGINE 100 UNITS/ML, PEN SQ-INSULIN SCH ×2 (09:11→21:49)
[2019-10-12] MEDS: LORazepam 1MG TABLET PO PRN ×2 (11:08→21:19)
[2019-10-12] MEDS: HYDROmorphone 2 MG/ML, 1ML IV PRN (11:08)
[2019-10-12 13:47] VITALS: BP 120/79
[2019-10-12] MEDS: ALBUMIN HUMAN 25% 100 ML IV PRN (14:54)
[2019-10-12 15:18] LABS: ANION GAP 7 mmol/L (5-15); CALCIUM 9.8 mg/dL (8.5-10.1); CHLORIDE 95 mmol/L (98-107); CREATININE 1.88 mg/dL (0.7-1.3)
[2019-10-12 16:04] VITALS: BP 103/69
[2019-10-12 16:26] LABS: BASOPHILS # (AUTO) 0.05 x10^3/uL (0-0.1); BASOPHILS % (AUTO) 0 % (0-1); EOSINOPHILS # (AUTO) 0.27 x10^3/uL (0-0.4); EOSINOPHILS % (AUTO) 2 % (1-7); LYMPHOCYTES # (AUTO) 1.11 x10^3/uL (1-3.4); LYMPHOCYTES % (AUTO) 10 % (22-44); MD SCAN; MEAN CORPUSCULAR HEMOGLOBIN 28.5 pg (27.5-34.5); MEAN CORPUSCULAR HGB CONC 32.8 g/dL (33.2-36.2); MEAN CORPUSCULAR VOLUME 86.7 fL (81-97); MEAN PLATELET VOLUME 6.9 fL (7.4-10.4); MONOCYTES # (AUTO) 0.91 x10^3/uL (0.2-0.8); MONOCYTES % (AUTO) 8 % (2-9); NEUTROPHILS # (AUTO) 8.89 x10^3/uL (1.8-6.8); NEUTROPHILS % (AUTO) 79 % (42-75); PLATELET COUNT 327 x10^3/uL (130-400); RED BLOOD COUNT 2.59 x10^6/uL (4.38-5.82); RED CELL DISTRIBUTION WIDTH 16.4 % (9.4-14.8)
[2019-10-12] MEDS: SIMETHICONE 80 MG CHEW TAB PO PRN (17:11)
[2019-10-12] MEDS: LACTULOSE 20 GM/30 ML UDC PO PRN (17:11)
[2019-10-12 19:25] VITALS: BP 107/72
[2019-10-13] VITALS (7 sets, daily range): BP systolic 93–108; BP diastolic 63–71
[2019-10-13] MEDS: METOCLOPRAMIDE 5 MG/ML, 2ML IV SCH ×3 (00:55→16:30)
[2019-10-13] MEDS: OXYcodone 5 MG/5 ML ORAL.SOL UDC PO PRN ×4 (01:28→22:43)
[2019-10-13] MEDS: ACETAMINOPHEN 650 MG/20.3 ML UDC PO PRN (01:28)
[2019-10-13] MEDS: TRAZODONE 100MG TABLET PO PRN (01:29)
[2019-10-13] MEDS: ONDANSETRON 2MG/ML, 2ML IVPush SCH ×3 (03:30→14:28)
[2019-10-13] MEDS: METHYLNALTREXONE 12 MG/0.6 ML SYR SQ SCH (03:30)
[2019-10-13] MEDS ORDERED: PANTOPRAZOLE 40MG TABLET PO SCH (06:00)
[2019-10-13] MEDS: HEPARIN 5,000 UNITS/ML, 1ML SQ SCH ×2 (06:02→17:36)
[2019-10-13] MEDS: LORazepam 1MG TABLET PO PRN ×2 (06:03→22:43)
[2019-10-13] MEDS: DOCUSATE 50 MG/5 ML, 10ML UDC PO SCH (08:11)
[2019-10-13] MEDS: SODIUM CHLORIDE FLUSH 10ML SYR IVF SCH (08:13)
[2019-10-13] MEDS: MAGNESIUM OXIDE 400 MG TABLET PO SCH (08:13)
[2019-10-13] MEDS: DULOXETINE 30 MG CAPSULE.DR PO SCH (08:13)
[2019-10-13] MEDS: SEVELAMER 2.4 GM POWD.PACK JT SCH ×3 (08:13→17:35)
[2019-10-13] MEDS: BUPROPION 100 MG TABLET PO SCH (08:13)
[2019-10-13] MEDS: GABAPENTIN 250 MG/5 ML ORAL SOL PO SCH ×2 (08:13→17:35)
[2019-10-13] MEDS: MIDODRINE 5 MG TABLET PO SCH ×2 (09:00→17:35)
[2019-10-13] MEDS: INSULIN LISPRO 100 UNITS/ML, PEN SQ-INSULIN SCH (10:29)
[2019-10-13] MEDS ORDERED: HYDROmorphone 1 MG/ML, 1ML VIAL IV ONE (10:30)
[2019-10-13] MEDS: FENTANYL 100 MCG PATCH TD SCH (10:35)
[2019-10-13] MEDS: FENTANYL REMOVE PATCH NOTE XX SCH (10:39)
[2019-10-13] MEDS: INSULIN GLARGINE 100 UNITS/ML, PEN SQ-INSULIN SCH (10:39)
[2019-10-13] MEDS: HYDROmorphone 2 MG/ML, 1ML IV PRN ×2 (11:15→21:35)
[2019-10-13 12:43] LABS: MEAN CORPUSCULAR HEMOGLOBIN 28.7 pg (27.5-34.5); MEAN CORPUSCULAR HGB CONC 32.7 g/dL (33.2-36.2); MEAN CORPUSCULAR VOLUME 87.9 fL (81-97); MEAN PLATELET VOLUME 6.9 fL (7.4-10.4); PLATELET COUNT 308 x10^3/uL (130-400); RED BLOOD COUNT 2.42 x10^6/uL (4.38-5.82); RED CELL DISTRIBUTION WIDTH 16.3 % (9.4-14.8)
[2019-10-13 12:53] LABS: BASOPHILS # (AUTO) 0.05 x10^3/uL (0-0.1); BASOPHILS % (AUTO) 1 % (0-1); EOSINOPHILS # (AUTO) 0.38 x10^3/uL (0-0.4); EOSINOPHILS % (AUTO) 4 % (1-7); LYMPHOCYTES % (AUTO) 16 % (22-44); MD SCAN; MONOCYTES # (AUTO) 0.82 x10^3/uL (0.2-0.8); MONOCYTES % (AUTO) 9 % (2-9); NEUTROPHILS # (AUTO) 6.86 x10^3/uL (1.8-6.8); NEUTROPHILS % (AUTO) 71 % (42-75)
[2019-10-13 13:32] LABS: BASOPHILS # (AUTO) 0.05 x10^3/uL (0-0.1); BASOPHILS % (AUTO) 1 % (0-1); EOSINOPHILS # (AUTO) 0.39 x10^3/uL (0-0.4); EOSINOPHILS % (AUTO) 4 % (1-7); LYMPHOCYTES # (AUTO) 1.48 x10^3/uL (1-3.4); LYMPHOCYTES % (AUTO) 16 % (22-44); MD NO; MEAN CORPUSCULAR HGB CONC 32.9 g/dL (33.2-36.2); MEAN CORPUSCULAR VOLUME 88.1 fL (81-97); MEAN PLATELET VOLUME 6.8 fL (7.4-10.4); MONOCYTES # (AUTO) 0.81 x10^3/uL (0.2-0.8); MONOCYTES % (AUTO) 9 % (2-9); NEUTROPHILS # (AUTO) 6.47 x10^3/uL (1.8-6.8); NEUTROPHILS % (AUTO) 70 % (42-75); PLATELET COUNT 298 x10^3/uL (130-400); RED BLOOD COUNT 2.37 x10^6/uL (4.38-5.82); RED CELL DISTRIBUTION WIDTH 16.4 % (9.4-14.8)
[2019-10-13] MEDS ORDERED: LIDOCAINE JELLY 2%, 30GM TP ONE (21:00)
[2019-10-14] MEDS: GABAPENTIN 250 MG/5 ML ORAL SOL PO SCH ×4 (00:01→23:14)
[2019-10-14] MEDS: MIDODRINE 5 MG TABLET PO SCH ×4 (00:01→23:14)
[2019-10-14] MEDS: METOCLOPRAMIDE 5 MG/ML, 2ML IV SCH ×4 (00:02→15:24)
[2019-10-14] MEDS: BUPROPION 100 MG TABLET PO SCH ×3 (00:02→23:14)
[2019-10-14] MEDS: INSULIN GLARGINE 100 UNITS/ML, PEN SQ-INSULIN SCH ×3 (00:29→23:13)
[2019-10-14] MEDS: INSULIN LISPRO 100 UNITS/ML, PEN SQ-INSULIN SCH ×3 (00:30→23:13)
[2019-10-14] MEDS: HEPARIN 5,000 UNITS/ML, 1ML SQ SCH ×3 (00:34→17:47)
[2019-10-14] MEDS: METHYLNALTREXONE 12 MG/0.6 ML SYR SQ SCH (03:41)
[2019-10-14] MEDS: OXYcodone 5 MG/5 ML ORAL.SOL UDC PO PRN ×3 (03:43→20:31)
[2019-10-14] MEDS: ONDANSETRON 2MG/ML, 2ML IVPush SCH ×4 (06:39→20:31)
[2019-10-14 06:48] VITALS: BP 114/64
[2019-10-14] MEDS: LACTULOSE 20 GM/30 ML UDC PO PRN (07:36)
[2019-10-14] MEDS: SEVELAMER 2.4 GM POWD.PACK JT SCH ×3 (07:38→17:47)
[2019-10-14] MEDS: PANTOPRAZOLE 40 MG IV IVPush SCH ×2 (07:38→15:24)
[2019-10-14] MEDS: SODIUM CHLORIDE FLUSH 10ML SYR IVF SCH ×3 (07:39→20:41)
[2019-10-14] MEDS: DULOXETINE 30 MG CAPSULE.DR PO SCH (07:39)
[2019-10-14] MEDS: DOCUSATE 50 MG/5 ML, 10ML UDC PO SCH ×3 (07:43→23:15)
[2019-10-14] MEDS: MAGNESIUM OXIDE 400 MG TABLET PO SCH (07:43)
[2019-10-14] MEDS: ALBUMIN HUMAN 25% 100 ML IV PRN (12:05)
[2019-10-14 14:20] VITALS: BP 102/68
[2019-10-14] MEDS: LORazepam 1MG TABLET PO PRN (15:29)
[2019-10-14 19:15] VITALS: BP 93/63
[2019-10-15] MEDS: OXYcodone 5 MG/5 ML ORAL.SOL UDC PO PRN ×5 (00:41→19:51)
[2019-10-15] MEDS: HEPARIN 5,000 UNITS/ML, 1ML SQ SCH ×3 (00:42→17:31)
[2019-10-15] MEDS: LORazepam 1MG TABLET PO PRN ×2 (00:42→21:30)
[2019-10-15] MEDS: METOCLOPRAMIDE 5 MG/ML, 2ML IV SCH ×2 (00:42→08:30)
[2019-10-15] MEDS ORDERED: CATHFLO-ALTEPLASE 2 MG/2 ML CATHFLUSH ONE (03:00)
[2019-10-15] MEDS: ONDANSETRON 2MG/ML, 2ML IVPush SCH ×2 (03:21→09:00)
[2019-10-15] MEDS: METHYLNALTREXONE 12 MG/0.6 ML SYR SQ SCH (03:22)
[2019-10-15 03:30] VITALS: BP 94/64
[2019-10-15 07:13] VITALS: BP 105/71
[2019-10-15] MEDS: INSULIN LISPRO 100 UNITS/ML, PEN SQ-INSULIN SCH ×2 (09:00→19:53)
[2019-10-15] MEDS: DOCUSATE 50 MG/5 ML, 10ML UDC PO SCH ×2 (09:03→20:05)
[2019-10-15] MEDS: PANTOPRAZOLE 40 MG IV IVPush SCH (09:03)
[2019-10-15] MEDS: LACTULOSE 20 GM/30 ML UDC PO PRN (09:04)
[2019-10-15] MEDS: SEVELAMER 2.4 GM POWD.PACK JT SCH ×3 (09:04→15:28)
[2019-10-15] MEDS: GABAPENTIN 250 MG/5 ML ORAL SOL PO SCH ×3 (09:04→20:05)
[2019-10-15] MEDS: DULOXETINE 30 MG CAPSULE.DR PO SCH (09:07)
[2019-10-15] MEDS: MIDODRINE 5 MG TABLET PO SCH ×3 (09:07→20:09)
[2019-10-15] MEDS: MAGNESIUM OXIDE 400 MG TABLET PO SCH (09:08)
[2019-10-15] MEDS: BUPROPION 100 MG TABLET PO SCH ×2 (09:08→20:10)
[2019-10-15] MEDS: SIMETHICONE 80 MG CHEW TAB PO PRN (09:08)
[2019-10-15] MEDS: INSULIN GLARGINE 100 UNITS/ML, PEN SQ-INSULIN SCH ×2 (09:09→20:11)
[2019-10-15] MEDS: SODIUM CHLORIDE FLUSH 10ML SYR IVF SCH ×2 (09:10→19:53)
[2019-10-15 10:33] LABS: ALBUMIN 2.5 g/dL (3.4-5.0); ANION GAP 4 mmol/L (5-15); CALCIUM 10.2 mg/dL (8.5-10.1); CHLORIDE 96 mmol/L (98-107); CREATININE 1.89 mg/dL (0.7-1.3)
[2019-10-15] MEDS: HYDROmorphone 2 MG/ML, 1ML IV PRN (12:29)
[2019-10-15 13:07] VITALS: BP 113/77
[2019-10-15 15:30] VITALS: BP 113/75
[2019-10-15] MEDS: ACETAMINOPHEN 650 MG/20.3 ML UDC PO PRN (17:31)
[2019-10-15 19:58] VITALS: BP 100/62
[2019-10-16] MEDS: HEPARIN 5,000 UNITS/ML, 1ML SQ SCH ×3 (01:11→21:05)
[2019-10-16] MEDS: OXYcodone 5 MG/5 ML ORAL.SOL UDC PO PRN ×5 (01:39→21:13)
[2019-10-16 01:46] VITALS: BP 104/72
[2019-10-16] MEDS: METHYLNALTREXONE 12 MG/0.6 ML SYR SQ SCH (03:30)
[2019-10-16 05:58] LABS: ALBUMIN 2.4 g/dL (3.4-5.0); ANION GAP 9 mmol/L (5-15); CALCIUM 11.2 mg/dL (8.5-10.1); CHLORIDE 94 mmol/L (98-107)
[2019-10-16 06:00] LABS: CREATININE 2.38 mg/dL (0.7-1.3)
[2019-10-16 06:04] LABS: BASOPHILS # (AUTO) 0.04 x10^3/uL (0-0.1); BASOPHILS % (AUTO) 0 % (0-1); EOSINOPHILS # (AUTO) 0.47 x10^3/uL (0-0.4); EOSINOPHILS % (AUTO) 5 % (1-7); LYMPHOCYTES # (AUTO) 1.09 x10^3/uL (1-3.4); LYMPHOCYTES % (AUTO) 11 % (22-44); MD NO; MEAN CORPUSCULAR HEMOGLOBIN 28.9 pg (27.5-34.5); MEAN CORPUSCULAR HGB CONC 32.6 g/dL (33.2-36.2); MEAN CORPUSCULAR VOLUME 88.6 fL (81-97); MEAN PLATELET VOLUME 7.1 fL (7.4-10.4); MONOCYTES # (AUTO) 1.03 x10^3/uL (0.2-0.8); MONOCYTES % (AUTO) 10 % (2-9); NEUTROPHILS # (AUTO) 7.45 x10^3/uL (1.8-6.8); NEUTROPHILS % (AUTO) 74 % (42-75); PLATELET COUNT 302 x10^3/uL (130-400); RED BLOOD COUNT 2.59 x10^6/uL (4.38-5.82)
[2019-10-16] MEDS ORDERED: FENTANYL 50 MCG PATCH ONE (08:34)
[2019-10-16] MEDS: FENTANYL 100 MCG PATCH TD SCH (08:46)
[2019-10-16] MEDS: PANTOPRAZOLE 40 MG IV IVPush SCH (08:47)
[2019-10-16] MEDS: SEVELAMER 2.4 GM POWD.PACK JT SCH ×3 (08:47→17:01)
[2019-10-16] MEDS: SIMETHICONE 80 MG CHEW TAB PO PRN (08:48)
[2019-10-16] MEDS: SODIUM CHLORIDE FLUSH 10ML SYR IVF SCH ×2 (08:48→21:05)
[2019-10-16] MEDS: INSULIN LISPRO 100 UNITS/ML, PEN SQ-INSULIN SCH ×2 (09:00→21:00)
[2019-10-16] MEDS: INSULIN GLARGINE 100 UNITS/ML, PEN SQ-INSULIN SCH ×2 (09:02→22:08)
[2019-10-16] MEDS: FENTANYL REMOVE PATCH NOTE XX SCH (10:00)
[2019-10-16] MEDS: DOCUSATE 50 MG/5 ML, 10ML UDC PO SCH ×2 (12:09→23:14)
[2019-10-16] MEDS: HYDROmorphone 2 MG/ML, 1ML IV PRN (12:09)
[2019-10-16] MEDS: DULOXETINE 30 MG CAPSULE.DR PO SCH (12:10)
[2019-10-16] MEDS: GABAPENTIN 250 MG/5 ML ORAL SOL PO SCH ×3 (12:10→21:15)
[2019-10-16] MEDS: BUPROPION 100 MG TABLET PO SCH ×2 (12:10→23:14)
[2019-10-16] MEDS: MAGNESIUM OXIDE 400 MG TABLET PO SCH (12:10)
[2019-10-16 12:16] VITALS: BP 96/67
[2019-10-16] MEDS: MIDODRINE 5 MG TABLET PO SCH ×3 (12:18→21:15)
[2019-10-16] MEDS: HYDROmorphone 2 MG/ML, 1ML IVPush PRN (13:39)
[2019-10-16] MEDS: LORazepam 1MG TABLET PO PRN (14:36)
[2019-10-16 16:28] VITALS: BP 91/58
[2019-10-16 21:03] VITALS: BP 108/72
[2019-10-17] MEDS: OXYcodone 5 MG/5 ML ORAL.SOL UDC PO PRN ×4 (01:24→21:34)
[2019-10-17] MEDS: LORazepam 1MG TABLET PO PRN ×4 (01:26→22:54)
[2019-10-17 02:39] VITALS: BP 109/77
[2019-10-17] MEDS: HEPARIN 5,000 UNITS/ML, 1ML SQ SCH ×3 (04:15→20:34)
[2019-10-17] MEDS: METHYLNALTREXONE 12 MG/0.6 ML SYR SQ SCH (04:15)
[2019-10-17 07:26] VITALS: BP 119/80
[2019-10-17] MEDS: MIDODRINE 5 MG TABLET PO SCH ×3 (09:00→20:41)
[2019-10-17] MEDS: LACTULOSE 20 GM/30 ML UDC PO PRN (09:04)
[2019-10-17] MEDS: DARBEPOETIN 100 MCG/ML SQ SCH (09:05)
[2019-10-17] MEDS: DARBEPOETIN 25 MCG/ML SQ SCH (09:05)
[2019-10-17] MEDS: PANTOPRAZOLE 40 MG IV IVPush SCH (09:06)
[2019-10-17] MEDS: SODIUM CHLORIDE FLUSH 10ML SYR IVF SCH ×2 (09:06→20:30)
[2019-10-17] MEDS: SEVELAMER 2.4 GM POWD.PACK JT SCH ×3 (09:06→16:48)
[2019-10-17] MEDS: DOCUSATE 50 MG/5 ML, 10ML UDC PO SCH ×2 (09:07→20:30)
[2019-10-17] MEDS: INSULIN GLARGINE 100 UNITS/ML, PEN SQ-INSULIN SCH ×2 (09:40→20:46)
[2019-10-17] MEDS: INSULIN LISPRO 100 UNITS/ML, PEN SQ-INSULIN SCH ×2 (09:41→20:32)
[2019-10-17] MEDS: HYDROmorphone 2 MG/ML, 1ML IV PRN (13:19)
[2019-10-17] MEDS: DULOXETINE 30 MG CAPSULE.DR PO SCH (13:20)
[2019-10-17] MEDS: BUPROPION 100 MG TABLET PO SCH ×2 (13:20→20:30)
[2019-10-17] MEDS: MAGNESIUM OXIDE 400 MG TABLET PO SCH (13:20)
[2019-10-17] MEDS: SIMETHICONE 80 MG CHEW TAB PO PRN (13:20)
[2019-10-17] MEDS: GABAPENTIN 250 MG/5 ML ORAL SOL PO SCH ×3 (13:21→20:30)
[2019-10-17 13:33] VITALS: BP 126/67
[2019-10-17] MEDS ORDERED: HYDROmorphone 1 MG/ML, 1ML INJ IV ONE (15:00)
[2019-10-17 15:01] VITALS: BP 120/87
[2019-10-17] MEDS ORDERED: HYDROmorphone 1 MG/ML, 1ML VIAL ONE (15:03)
[2019-10-17] MEDS: ONDANSETRON 2MG/ML, 2ML IVPush PRN (15:25)
[2019-10-17 20:26] VITALS: BP 107/73
[2019-10-18 01:12] VITALS: BP 105/70
[2019-10-18] MEDS: OXYcodone 5 MG/5 ML ORAL.SOL UDC PO PRN ×5 (01:28→22:59)
[2019-10-18] MEDS: HYDROmorphone 2 MG/ML, 1ML IV PRN ×2 (02:57→17:33)
[2019-10-18] MEDS: HEPARIN 5,000 UNITS/ML, 1ML SQ SCH ×3 (04:23→21:25)
[2019-10-18] MEDS: METHYLNALTREXONE 12 MG/0.6 ML SYR SQ SCH (04:23)
[2019-10-18] MEDS: INSULIN LISPRO 100 UNITS/ML, PEN SQ-INSULIN SCH ×2 (08:10→23:28)
[2019-10-18 08:26] VITALS: BP 105/66
[2019-10-18] MEDS: SEVELAMER 2.4 GM POWD.PACK JT SCH ×3 (08:38→16:48)
[2019-10-18] MEDS: LACTULOSE 20 GM/30 ML UDC PO PRN (08:39)
[2019-10-18] MEDS: DOCUSATE 50 MG/5 ML, 10ML UDC PO SCH ×2 (08:39→21:25)
[2019-10-18] MEDS: MIDODRINE 5 MG TABLET PO SCH ×3 (08:40→21:26)
[2019-10-18] MEDS: PANTOPRAZOLE 40 MG IV IVPush SCH (08:40)
[2019-10-18] MEDS: SODIUM CHLORIDE FLUSH 10ML SYR IVF SCH ×2 (08:41→21:25)
[2019-10-18] MEDS: SIMETHICONE 80 MG CHEW TAB PO PRN ×2 (08:41→14:21)
[2019-10-18] MEDS: GABAPENTIN 250 MG/5 ML ORAL SOL PO SCH ×3 (08:41→21:26)
[2019-10-18] MEDS: MAGNESIUM OXIDE 400 MG TABLET PO SCH (08:41)
[2019-10-18] MEDS: DULOXETINE 30 MG CAPSULE.DR PO SCH (08:42)
[2019-10-18] MEDS: BUPROPION 100 MG TABLET PO SCH ×2 (08:42→21:25)
[2019-10-18] MEDS: INSULIN GLARGINE 100 UNITS/ML, PEN SQ-INSULIN SCH ×2 (09:12→23:28)
[2019-10-18] MEDS: LORazepam 1MG TABLET PO PRN ×2 (10:29→23:00)
[2019-10-18] MEDS: HYDROmorphone 2 MG/ML, 1ML IVPush PRN (13:04)
[2019-10-18 14:52] VITALS: BP 116/77
[2019-10-18] MEDS ORDERED: HYDROmorphone 1 MG/ML, 1ML VIAL ONE (17:30)
[2019-10-18 19:31] VITALS: BP 105/67
[2019-10-19 00:59] VITALS: BP 105/69
[2019-10-19] MEDS: HEPARIN 5,000 UNITS/ML, 1ML SQ SCH ×3 (04:16→19:55)
[2019-10-19] MEDS: METHYLNALTREXONE 12 MG/0.6 ML SYR SQ SCH (04:17)
[2019-10-19] MEDS: OXYcodone 5 MG/5 ML ORAL.SOL UDC PO PRN ×5 (04:22→23:14)
[2019-10-19 08:03] VITALS: BP 116/75
[2019-10-19] MEDS: DOCUSATE 50 MG/5 ML, 10ML UDC PO SCH ×2 (08:08→20:57)
[2019-10-19] MEDS: SODIUM CHLORIDE FLUSH 10ML SYR IVF SCH ×2 (08:08→20:04)
[2019-10-19] MEDS: SEVELAMER 2.4 GM POWD.PACK JT SCH ×3 (08:09→16:25)
[2019-10-19] MEDS: PANTOPRAZOLE 40 MG IV IVPush SCH (08:09)
[2019-10-19] MEDS: GABAPENTIN 250 MG/5 ML ORAL SOL PO SCH ×3 (08:11→20:57)
[2019-10-19] MEDS: SIMETHICONE 80 MG CHEW TAB PO PRN (08:12)
[2019-10-19] MEDS: MIDODRINE 5 MG TABLET PO SCH ×3 (08:12→20:57)
[2019-10-19] MEDS: DULOXETINE 30 MG CAPSULE.DR PO SCH (08:14)
[2019-10-19] MEDS: MAGNESIUM OXIDE 400 MG TABLET PO SCH (08:15)
[2019-10-19] MEDS: BUPROPION 100 MG TABLET PO SCH (08:15)
[2019-10-19] MEDS: INSULIN GLARGINE 100 UNITS/ML, PEN SQ-INSULIN SCH ×2 (08:34→23:14)
[2019-10-19] MEDS: INSULIN LISPRO 100 UNITS/ML, PEN SQ-INSULIN SCH ×2 (09:17→21:00)
[2019-10-19] MEDS: FENTANYL REMOVE PATCH NOTE XX SCH (10:20)
[2019-10-19] MEDS: FENTANYL 100 MCG PATCH TD SCH (10:34)
[2019-10-19] MEDS: LORazepam 1MG TABLET PO PRN ×2 (12:20→19:24)
[2019-10-19] MEDS ORDERED: HYDROmorphone 1 MG/ML, 1ML VIAL ONE (13:06)
[2019-10-19] MEDS: HYDROmorphone 2 MG/ML, 1ML IV PRN ×2 (13:10→19:55)
[2019-10-19 14:23] VITALS: BP 109/74
[2019-10-19] MEDS: BUPROPION SR 100 MG TABLET PO SCH (14:34)
[2019-10-19 20:50] VITALS: BP 103/72
[2019-10-20] MEDS: HEPARIN 5,000 UNITS/ML, 1ML SQ SCH ×3 (03:37→20:06)
[2019-10-20] MEDS: METHYLNALTREXONE 12 MG/0.6 ML SYR SQ SCH (03:38)
[2019-10-20] MEDS: OXYcodone 5 MG/5 ML ORAL.SOL UDC PO PRN ×4 (03:38→20:06)
[2019-10-20 04:24] LABS: BASOPHILS # (AUTO) 0.06 x10^3/uL (0-0.1); BASOPHILS % (AUTO) 1 % (0-1); EOSINOPHILS # (AUTO) 0.35 x10^3/uL (0-0.4); EOSINOPHILS % (AUTO) 4 % (1-7); LYMPHOCYTES % (AUTO) 18 % (22-44); MD NO; MEAN CORPUSCULAR HEMOGLOBIN 27.9 pg (27.5-34.5); MEAN CORPUSCULAR HGB CONC 32.2 g/dL (33.2-36.2); MEAN CORPUSCULAR VOLUME 86.6 fL (81-97); MEAN PLATELET VOLUME 6.8 fL (7.4-10.4); MONOCYTES # (AUTO) 0.98 x10^3/uL (0.2-0.8); MONOCYTES % (AUTO) 10 % (2-9); NEUTROPHILS # (AUTO) 6.32 x10^3/uL (1.8-6.8); NEUTROPHILS % (AUTO) 67 % (42-75); PLATELET COUNT 335 x10^3/uL (130-400); RED BLOOD COUNT 2.75 x10^6/uL (4.38-5.82); RED CELL DISTRIBUTION WIDTH 16.2 % (9.4-14.8)
[2019-10-20 04:35] LABS: ALBUMIN 2.3 g/dL (3.4-5.0); ANION GAP 7 mmol/L (5-15); CALCIUM 10.4 mg/dL (8.5-10.1); CHLORIDE 95 mmol/L (98-107)
[2019-10-20 04:40] LABS: % IRON SATURATION 13 % (20-55); ALANINE AMINOTRANSFERASE 21 U/L (12-78); ALKALINE PHOSPHATASE 93 U/L (45-117); BILIRUBIN,TOTAL 0.5 mg/dL (0.2-1.0); CREATININE 1.92 mg/dL (0.7-1.3); IRON LEVEL 31 mcg/dL (65-175); TOTAL IRON BINDING CAPACITY 240 mcg/dL (250-450); TOTAL PROTEIN 7.6 g/dL (6.4-8.2)
[2019-10-20] MEDS: ONDANSETRON 2MG/ML, 2ML IVPush PRN (05:00)
[2019-10-20] MEDS: SEVELAMER 2.4 GM POWD.PACK JT SCH ×3 (08:17→18:27)
[2019-10-20] MEDS: BUPROPION SR 100 MG TABLET PO SCH ×2 (08:17→14:59)
[2019-10-20] MEDS: INSULIN LISPRO 100 UNITS/ML, PEN SQ-INSULIN SCH ×2 (09:00→21:00)
[2019-10-20 09:05] VITALS: BP 103/70
[2019-10-20] MEDS: SODIUM CHLORIDE FLUSH 10ML SYR IVF SCH ×2 (09:11→20:05)
[2019-10-20] MEDS: PANTOPRAZOLE 40 MG IV IVPush SCH (09:12)
[2019-10-20] MEDS: DOCUSATE 50 MG/5 ML, 10ML UDC PO SCH ×2 (09:12→20:05)
[2019-10-20] MEDS: DULOXETINE 30 MG CAPSULE.DR PO SCH (09:12)
[2019-10-20] MEDS: GABAPENTIN 250 MG/5 ML ORAL SOL PO SCH ×3 (09:12→20:05)
[2019-10-20] MEDS: MAGNESIUM OXIDE 400 MG TABLET PO SCH (09:12)
[2019-10-20] MEDS: MIDODRINE 5 MG TABLET PO SCH ×3 (09:12→20:06)
[2019-10-20] MEDS: SIMETHICONE 80 MG CHEW TAB PO PRN (09:13)
[2019-10-20] MEDS: LACTULOSE 20 GM/30 ML UDC PO PRN (09:13)
[2019-10-20] MEDS: INSULIN GLARGINE 100 UNITS/ML, PEN SQ-INSULIN SCH ×2 (09:18→21:08)
[2019-10-20] MEDS: HYDROmorphone 2 MG/ML, 1ML IVPush PRN (13:16)
[2019-10-20 14:56] VITALS: BP 108/74
[2019-10-20 19:50] VITALS: BP 124/91
[2019-10-21] MEDS: MELATONIN 5 MG TABLET PO PRN (00:11)
[2019-10-21] MEDS: OXYcodone 5 MG/5 ML ORAL.SOL UDC PO PRN ×5 (00:17→20:07)
[2019-10-21] MEDS: HEPARIN 5,000 UNITS/ML, 1ML SQ SCH ×3 (04:02→20:07)
[2019-10-21] MEDS: METHYLNALTREXONE 12 MG/0.6 ML SYR SQ SCH (04:02)
[2019-10-21] MEDS: ONDANSETRON 2MG/ML, 2ML IVPush PRN (05:16)
[2019-10-21 05:51] LABS: BASOPHILS # (AUTO) 0.05 x10^3/uL (0-0.1); BASOPHILS % (AUTO) 1 % (0-1); EOSINOPHILS # (AUTO) 0.49 x10^3/uL (0-0.4); EOSINOPHILS % (AUTO) 5 % (1-7); LYMPHOCYTES # (AUTO) 1.62 x10^3/uL (1-3.4); LYMPHOCYTES % (AUTO) 15 % (22-44); MD NO; MEAN CORPUSCULAR HEMOGLOBIN 28.7 pg (27.5-34.5); MEAN CORPUSCULAR HGB CONC 32.8 g/dL (33.2-36.2); MEAN CORPUSCULAR VOLUME 87.6 fL (81-97); MEAN PLATELET VOLUME 7.2 fL (7.4-10.4); MONOCYTES # (AUTO) 0.95 x10^3/uL (0.2-0.8); MONOCYTES % (AUTO) 9 % (2-9); NEUTROPHILS % (AUTO) 71 % (42-75); PLATELET COUNT 328 x10^3/uL (130-400); RED BLOOD COUNT 2.74 x10^6/uL (4.38-5.82); RED CELL DISTRIBUTION WIDTH 15.9 % (9.4-14.8)
[2019-10-21 06:03] LABS: ALANINE AMINOTRANSFERASE 26 U/L (12-78); ALBUMIN 2.5 g/dL (3.4-5.0); ANION GAP 7 mmol/L (5-15); CALCIUM 11.3 mg/dL (8.5-10.1); CHLORIDE 92 mmol/L (98-107); CREATININE 2.48 mg/dL (0.7-1.3)
[2019-10-21 06:05] LABS: ALKALINE PHOSPHATASE 93 U/L (45-117); BILIRUBIN,TOTAL 0.4 mg/dL (0.2-1.0); TOTAL PROTEIN 7.5 g/dL (6.4-8.2)
[2019-10-21 08:25] VITALS: BP 125/66
[2019-10-21] MEDS: SEVELAMER 2.4 GM POWD.PACK JT SCH ×3 (08:31→16:16)
[2019-10-21] MEDS: DOCUSATE 50 MG/5 ML, 10ML UDC PO SCH ×2 (08:32→20:06)
[2019-10-21] MEDS: MIDODRINE 5 MG TABLET PO SCH ×3 (08:32→19:17)
[2019-10-21] MEDS: LACTULOSE 20 GM/30 ML UDC PO PRN (08:32)
[2019-10-21] MEDS: PANTOPRAZOLE 40 MG IV IVPush SCH (08:32)
[2019-10-21] MEDS: SIMETHICONE 80 MG CHEW TAB PO PRN ×2 (08:33→12:02)
[2019-10-21] MEDS: SODIUM CHLORIDE FLUSH 10ML SYR IVF SCH ×2 (08:33→20:06)
[2019-10-21] MEDS: GABAPENTIN 250 MG/5 ML ORAL SOL PO SCH ×3 (08:33→20:07)
[2019-10-21] MEDS: MAGNESIUM OXIDE 400 MG TABLET PO SCH (08:34)
[2019-10-21] MEDS: BUPROPION SR 100 MG TABLET PO SCH ×2 (08:34→14:36)
[2019-10-21] MEDS: DULOXETINE 30 MG CAPSULE.DR PO SCH (08:35)
[2019-10-21] MEDS: INSULIN LISPRO 100 UNITS/ML, PEN SQ-INSULIN SCH ×2 (08:50→20:21)
[2019-10-21] MEDS: INSULIN GLARGINE 100 UNITS/ML, PEN SQ-INSULIN SCH ×2 (08:51→20:22)
[2019-10-21] MEDS ORDERED: HYDROmorphone 1 MG/ML, 1ML VIAL ONE (11:28)
[2019-10-21] MEDS: HYDROmorphone 2 MG/ML, 1ML IV PRN (11:34)
[2019-10-21 13:17] VITALS: BP 120/78
[2019-10-21 19:17] VITALS: BP 102/69
[2019-10-21] MEDS: LORazepam 1MG TABLET PO PRN (20:07)
[2019-10-22] MEDS: OXYcodone 5 MG/5 ML ORAL.SOL UDC PO PRN ×5 (01:55→19:31)
[2019-10-22] MEDS: HEPARIN 5,000 UNITS/ML, 1ML SQ SCH ×3 (04:45→21:53)
[2019-10-22] MEDS: METHYLNALTREXONE 12 MG/0.6 ML SYR SQ SCH (04:45)
[2019-10-22] MEDS: ONDANSETRON 2MG/ML, 2ML IVPush PRN (06:45)
[2019-10-22 07:24] VITALS: BP 119/77
[2019-10-22] MEDS: BUPROPION SR 100 MG TABLET PO SCH ×2 (07:47→14:52)
[2019-10-22] MEDS: SEVELAMER 2.4 GM POWD.PACK JT SCH ×3 (07:48→16:51)
[2019-10-22] MEDS: MIDODRINE 5 MG TABLET PO SCH ×3 (09:00→21:53)
[2019-10-22] MEDS: INSULIN LISPRO 100 UNITS/ML, PEN SQ-INSULIN SCH ×2 (09:00→22:57)
[2019-10-22] MEDS: SODIUM CHLORIDE FLUSH 10ML SYR IVF SCH ×2 (09:00→21:54)
[2019-10-22] MEDS: PANTOPRAZOLE 40 MG IV IVPush SCH (09:48)
[2019-10-22] MEDS: DULOXETINE 30 MG CAPSULE.DR PO SCH (09:49)
[2019-10-22] MEDS: MAGNESIUM OXIDE 400 MG TABLET PO SCH (09:50)
[2019-10-22] MEDS: DOCUSATE 50 MG/5 ML, 10ML UDC PO SCH ×2 (09:50→21:49)
[2019-10-22] MEDS: GABAPENTIN 250 MG/5 ML ORAL SOL PO SCH ×3 (09:51→21:51)
[2019-10-22] MEDS: INSULIN GLARGINE 100 UNITS/ML, PEN SQ-INSULIN SCH ×2 (09:58→23:00)
[2019-10-22] MEDS: FENTANYL REMOVE PATCH NOTE XX SCH (10:00)
[2019-10-22] MEDS: FENTANYL 100 MCG PATCH TD SCH (10:33)
[2019-10-22] MEDS: HYDROmorphone 2 MG/ML, 1ML IV PRN ×2 (11:46→14:44)
[2019-10-22 14:58] VITALS: BP 105/66
[2019-10-22 20:16] VITALS: BP 98/67
[2019-10-23 01:00] VITALS: BP 125/73
[2019-10-23] MEDS: OXYcodone 5 MG/5 ML ORAL.SOL UDC PO PRN ×4 (04:06→20:16)
[2019-10-23] MEDS: METHYLNALTREXONE 12 MG/0.6 ML SYR SQ SCH (04:23)
[2019-10-23] MEDS: HEPARIN 5,000 UNITS/ML, 1ML SQ SCH ×3 (04:24→20:06)
[2019-10-23 05:44] LABS: ALBUMIN 2.5 g/dL (3.4-5.0); ANION GAP 9 mmol/L (5-15); BASOPHILS # (AUTO) 0.04 x10^3/uL (0-0.1); BASOPHILS % (AUTO) 0 % (0-1); CALCIUM 11.1 mg/dL (8.5-10.1); CHLORIDE 93 mmol/L (98-107); EOSINOPHILS # (AUTO) 0.29 x10^3/uL (0-0.4); EOSINOPHILS % (AUTO) 3 % (1-7); LYMPHOCYTES # (AUTO) 1.35 x10^3/uL (1-3.4); LYMPHOCYTES % (AUTO) 13 % (22-44); MD NO; MEAN CORPUSCULAR HEMOGLOBIN 28.3 pg (27.5-34.5); MEAN CORPUSCULAR HGB CONC 32.7 g/dL (33.2-36.2); MEAN CORPUSCULAR VOLUME 86.7 fL (81-97); MEAN PLATELET VOLUME 6.8 fL (7.4-10.4); MONOCYTES # (AUTO) 0.87 x10^3/uL (0.2-0.8); MONOCYTES % (AUTO) 8 % (2-9); NEUTROPHILS # (AUTO) 8.08 x10^3/uL (1.8-6.8); NEUTROPHILS % (AUTO) 76 % (42-75); PLATELET COUNT 300 x10^3/uL (130-400); RED BLOOD COUNT 2.66 x10^6/uL (4.38-5.82)
[2019-10-23 06:54] LABS: HCT (SEDRATE) 23.1 % (39.2-51.8)
[2019-10-23 07:17] LABS: SEDIMENTATION RATE > 120 mm/hr (0-10)
[2019-10-23 07:41] VITALS: BP 107/70
[2019-10-23] MEDS: LACTULOSE 20 GM/30 ML UDC PO PRN (07:42)
[2019-10-23] MEDS: BUPROPION 100 MG TABLET PO SCH ×2 (07:43→12:09)
[2019-10-23] MEDS: SEVELAMER 2.4 GM POWD.PACK JT SCH ×3 (07:43→16:25)
[2019-10-23] MEDS: INSULIN LISPRO 100 UNITS/ML, PEN SQ-INSULIN SCH ×2 (09:00→20:28)
[2019-10-23] MEDS: INSULIN GLARGINE 100 UNITS/ML, PEN SQ-INSULIN SCH ×2 (09:48→20:28)
[2019-10-23] MEDS: DULOXETINE 30 MG CAPSULE.DR PO SCH (09:49)
[2019-10-23] MEDS: DOCUSATE 50 MG/5 ML, 10ML UDC PO SCH ×2 (09:49→20:05)
[2019-10-23] MEDS: PANTOPRAZOLE 40 MG IV IVPush SCH (09:49)
[2019-10-23] MEDS: MIDODRINE 5 MG TABLET PO SCH ×4 (09:50→20:06)
[2019-10-23] MEDS: GABAPENTIN 250 MG/5 ML ORAL SOL PO SCH ×3 (09:50→20:53)
[2019-10-23] MEDS: MAGNESIUM OXIDE 400 MG TABLET PO SCH (09:50)
[2019-10-23] MEDS: SODIUM CHLORIDE FLUSH 10ML SYR IVF SCH ×2 (09:51→20:06)
[2019-10-23 13:19] VITALS: BP 120/78
[2019-10-23] MEDS: HYDROmorphone 2 MG/ML, 1ML IV PRN ×2 (13:21→16:27)
[2019-10-23 16:30] VITALS: BP 111/67
[2019-10-23 19:30] VITALS: BP 103/69
[2019-10-23] MEDS: ONDANSETRON 2MG/ML, 2ML IVPush PRN (20:05)
[2019-10-24] MEDS: HYDROmorphone 2 MG/ML, 1ML IV PRN (00:03)
[2019-10-24] MEDS: OXYcodone 5 MG/5 ML ORAL.SOL UDC PO PRN ×6 (00:03→23:59)
[2019-10-24] MEDS: HEPARIN 5,000 UNITS/ML, 1ML SQ SCH ×3 (04:20→19:46)
[2019-10-24] MEDS: METHYLNALTREXONE 12 MG/0.6 ML SYR SQ SCH (04:20)
[2019-10-24] MEDS: ONDANSETRON 2MG/ML, 2ML IVPush PRN (07:12)
[2019-10-24] MEDS: LORazepam 1MG TABLET PO PRN (07:38)
[2019-10-24] MEDS: SEVELAMER 2.4 GM POWD.PACK JT SCH ×3 (08:14→17:41)
[2019-10-24] MEDS: BUPROPION 100 MG TABLET PO SCH ×2 (08:15→13:00)
[2019-10-24] MEDS: MAGNESIUM OXIDE 400 MG TABLET PO SCH (09:00)
[2019-10-24] MEDS: DOCUSATE 50 MG/5 ML, 10ML UDC PO SCH ×2 (09:00→19:47)
[2019-10-24] MEDS: MIDODRINE 5 MG TABLET PO SCH ×3 (09:00→19:48)
[2019-10-24] MEDS: PANTOPRAZOLE 40 MG IV IVPush SCH (09:00)
[2019-10-24] MEDS: INSULIN LISPRO 100 UNITS/ML, PEN SQ-INSULIN SCH ×2 (09:00→20:05)
[2019-10-24] MEDS: DULOXETINE 30 MG CAPSULE.DR PO SCH (09:00)
[2019-10-24] MEDS: GABAPENTIN 250 MG/5 ML ORAL SOL PO SCH ×3 (09:00→19:47)
[2019-10-24] MEDS: INSULIN GLARGINE 100 UNITS/ML, PEN SQ-INSULIN SCH ×2 (09:00→20:05)
[2019-10-24 09:21] VITALS: BP 116/67
[2019-10-24] MEDS: SODIUM CHLORIDE FLUSH 10ML SYR IVF SCH ×2 (09:25→19:47)
[2019-10-24] MEDS: DARBEPOETIN 25 MCG/ML SQ SCH (09:25)
[2019-10-24] MEDS: DARBEPOETIN 100 MCG/ML SQ SCH (09:25)
[2019-10-24] MEDS: DAKIN'S SOLUTION 1/4 STRENGTH 1,000 ML IRRIG SOLN EXT SCH (15:29)
[2019-10-24 16:02] VITALS: BP 92/60
[2019-10-24 19:49] VITALS: BP 98/64
[2019-10-25] MEDS: SIMETHICONE 80 MG CHEW TAB PO PRN ×3 (00:18→21:54)
[2019-10-25] MEDS: POLYETHYLENE GLYCOL 17 GM PACKET PO PRN ×2 (00:18→21:54)
[2019-10-25] MEDS: METHYLNALTREXONE 12 MG/0.6 ML SYR SQ SCH (04:39)
[2019-10-25] MEDS: HEPARIN 5,000 UNITS/ML, 1ML SQ SCH ×3 (04:39→20:25)
[2019-10-25] MEDS: OXYcodone 5 MG/5 ML ORAL.SOL UDC PO PRN ×5 (04:52→20:38)
[2019-10-25] MEDS: MAGNESIUM OXIDE 400 MG TABLET PO SCH (08:21)
[2019-10-25] MEDS: SEVELAMER 2.4 GM POWD.PACK JT SCH ×3 (08:21→16:49)
[2019-10-25] MEDS: BUPROPION 100 MG TABLET PO SCH ×2 (08:22→13:16)
[2019-10-25] MEDS: DULOXETINE 30 MG CAPSULE.DR PO SCH (08:23)
[2019-10-25] MEDS: GABAPENTIN 250 MG/5 ML ORAL SOL PO SCH ×3 (08:24→20:25)
[2019-10-25] MEDS: PANTOPRAZOLE 40 MG IV IVPush SCH (08:24)
[2019-10-25] MEDS: DOCUSATE 50 MG/5 ML, 10ML UDC PO SCH ×2 (08:25→20:25)
[2019-10-25] MEDS: SODIUM CHLORIDE FLUSH 10ML SYR IVF SCH ×2 (08:28→20:25)
[2019-10-25] MEDS: INSULIN LISPRO 100 UNITS/ML, PEN SQ-INSULIN SCH ×2 (08:29→20:27)
[2019-10-25] MEDS: MIDODRINE 5 MG TABLET PO SCH ×3 (08:29→20:26)
[2019-10-25 08:30] VITALS: BP 117/70
[2019-10-25] MEDS: DAKIN'S SOLUTION 1/4 STRENGTH 1,000 ML IRRIG SOLN EXT SCH ×2 (08:30→15:24)
[2019-10-25] MEDS: INSULIN GLARGINE 100 UNITS/ML, PEN SQ-INSULIN SCH ×2 (08:56→20:26)
[2019-10-25] MEDS: FENTANYL 100 MCG PATCH TD SCH (10:38)
[2019-10-25] MEDS: FENTANYL REMOVE PATCH NOTE XX SCH (10:38)
[2019-10-25] MEDS: HYDROmorphone 2 MG/ML, 1ML IVPush PRN (13:18)
[2019-10-25] MEDS ORDERED: HYDROmorphone 1 MG/ML, 1ML VIAL ONE (15:20)
[2019-10-25] MEDS: HYDROmorphone 2 MG/ML, 1ML IV PRN (15:26)
[2019-10-25 15:55] VITALS: BP 105/60
[2019-10-25 18:42] VITALS: BP 107/69
[2019-10-25 19:23] VITALS: BP 113/71
[2019-10-26] MEDS: OXYcodone 5 MG/5 ML ORAL.SOL UDC PO PRN ×6 (00:50→20:50)
[2019-10-26] MEDS: METHYLNALTREXONE 12 MG/0.6 ML SYR SQ SCH (04:19)
[2019-10-26] MEDS: HEPARIN 5,000 UNITS/ML, 1ML SQ SCH ×3 (04:19→20:51)
[2019-10-26] MEDS: DAKIN'S SOLUTION 1/4 STRENGTH 1,000 ML IRRIG SOLN EXT SCH (08:12)
[2019-10-26 08:14] VITALS: BP 105/73
[2019-10-26] MEDS: SEVELAMER 2.4 GM POWD.PACK JT SCH ×3 (08:36→16:56)
[2019-10-26] MEDS: BUPROPION 100 MG TABLET PO SCH ×2 (08:36→12:40)
[2019-10-26] MEDS: PANTOPRAZOLE 40 MG IV IVPush SCH (08:36)
[2019-10-26] MEDS: DOCUSATE 50 MG/5 ML, 10ML UDC PO SCH ×2 (08:37→20:50)
[2019-10-26] MEDS: GABAPENTIN 250 MG/5 ML ORAL SOL PO SCH ×3 (08:37→20:50)
[2019-10-26] MEDS: SIMETHICONE 80 MG CHEW TAB PO PRN (08:37)
[2019-10-26] MEDS: MAGNESIUM OXIDE 400 MG TABLET PO SCH (08:38)
[2019-10-26] MEDS: MIDODRINE 5 MG TABLET PO SCH ×3 (08:38→20:50)
[2019-10-26] MEDS: SODIUM CHLORIDE FLUSH 10ML SYR IVF SCH ×2 (08:38→20:51)
[2019-10-26] MEDS: DULOXETINE 30 MG CAPSULE.DR PO SCH (08:38)
[2019-10-26] MEDS: INSULIN LISPRO 100 UNITS/ML, PEN SQ-INSULIN SCH ×2 (08:52→21:00)
[2019-10-26] MEDS: INSULIN GLARGINE 100 UNITS/ML, PEN SQ-INSULIN SCH ×2 (08:55→21:16)
[2019-10-26] MEDS ORDERED: HYDROmorphone 1 MG/ML, 1ML VIAL ONE (14:25)
[2019-10-26] MEDS: HYDROmorphone 2 MG/ML, 1ML IV PRN (14:38)
[2019-10-26 14:43] VITALS: BP 113/67
[2019-10-26 20:39] VITALS: BP 105/69
[2019-10-27] MEDS: OXYcodone 5 MG/5 ML ORAL.SOL UDC PO PRN ×5 (01:10→21:05)
[2019-10-27 01:16] VITALS: BP 106/70
[2019-10-27] MEDS: HEPARIN 5,000 UNITS/ML, 1ML SQ SCH ×3 (04:54→21:02)
[2019-10-27] MEDS: METHYLNALTREXONE 12 MG/0.6 ML SYR SQ SCH (05:06)
[2019-10-27 07:00] VITALS: BP 106/62
[2019-10-27] MEDS: DAKIN'S SOLUTION 1/4 STRENGTH 1,000 ML IRRIG SOLN EXT SCH (09:00)
[2019-10-27] MEDS: SEVELAMER 2.4 GM POWD.PACK JT SCH ×3 (09:17→17:10)
[2019-10-27] MEDS: DOCUSATE 50 MG/5 ML, 10ML UDC PO SCH ×2 (09:17→21:03)
[2019-10-27] MEDS: GABAPENTIN 250 MG/5 ML ORAL SOL PO SCH ×3 (09:17→21:03)
[2019-10-27] MEDS: MAGNESIUM OXIDE 400 MG TABLET PO SCH (09:18)
[2019-10-27] MEDS: BUPROPION 100 MG TABLET PO SCH ×2 (09:18→12:38)
[2019-10-27] MEDS: PANTOPRAZOLE 40 MG IV IVPush SCH (09:19)
[2019-10-27] MEDS: MIDODRINE 5 MG TABLET PO SCH ×3 (09:19→21:00)
[2019-10-27] MEDS: DULOXETINE 30 MG CAPSULE.DR PO SCH (09:19)
[2019-10-27] MEDS: SIMETHICONE 80 MG CHEW TAB PO PRN ×2 (09:19→21:04)
[2019-10-27] MEDS: INSULIN GLARGINE 100 UNITS/ML, PEN SQ-INSULIN SCH ×2 (09:20→21:05)
[2019-10-27] MEDS: INSULIN LISPRO 100 UNITS/ML, PEN SQ-INSULIN SCH ×2 (09:20→21:00)
[2019-10-27] MEDS: SODIUM CHLORIDE FLUSH 10ML SYR IVF SCH ×2 (09:20→21:04)
[2019-10-27] MEDS: HYDROmorphone 2 MG/ML, 1ML IVPush PRN (11:09)
[2019-10-27] MEDS: ONDANSETRON 2MG/ML, 2ML IVPush PRN (11:25)
[2019-10-27] MEDS ORDERED: HYDROmorphone 1 MG/ML, 1ML VIAL ONE (12:52)
[2019-10-27] MEDS: HYDROmorphone 2 MG/ML, 1ML IV PRN (12:56)
[2019-10-27 13:31] VITALS: BP 111/73
[2019-10-27 19:38] VITALS: BP 114/77
[2019-10-28] MEDS: OXYcodone 5 MG/5 ML ORAL.SOL UDC PO PRN ×6 (01:07→21:20)
[2019-10-28 01:12] VITALS: BP 116/75
[2019-10-28] MEDS: HEPARIN 5,000 UNITS/ML, 1ML SQ SCH ×3 (03:48→22:42)
[2019-10-28] MEDS: METHYLNALTREXONE 12 MG/0.6 ML SYR SQ SCH (03:48)
[2019-10-28 06:37] VITALS: BP 104/70
[2019-10-28] MEDS: MAGNESIUM OXIDE 400 MG TABLET PO SCH (08:04)
[2019-10-28] MEDS: DOCUSATE 50 MG/5 ML, 10ML UDC PO SCH ×2 (08:04→22:42)
[2019-10-28] MEDS: GABAPENTIN 250 MG/5 ML ORAL SOL PO SCH ×3 (08:04→22:43)
[2019-10-28] MEDS: DULOXETINE 30 MG CAPSULE.DR PO SCH (08:04)
[2019-10-28] MEDS: MIDODRINE 5 MG TABLET PO SCH ×3 (08:04→21:00)
[2019-10-28] MEDS: BUPROPION 100 MG TABLET PO SCH ×2 (08:04→12:05)
[2019-10-28] MEDS: SODIUM CHLORIDE FLUSH 10ML SYR IVF SCH ×2 (08:05→22:44)
[2019-10-28] MEDS: PANTOPRAZOLE 40 MG IV IVPush SCH (08:05)
[2019-10-28] MEDS: INSULIN LISPRO 100 UNITS/ML, PEN SQ-INSULIN SCH ×2 (08:05→21:00)
[2019-10-28] MEDS: SEVELAMER 2.4 GM POWD.PACK JT SCH ×3 (08:41→17:04)
[2019-10-28] MEDS: ONDANSETRON 2MG/ML, 2ML IVPush PRN (08:41)
[2019-10-28] MEDS: INSULIN GLARGINE 100 UNITS/ML, PEN SQ-INSULIN SCH ×2 (08:42→22:46)
[2019-10-28] MEDS ORDERED: FENTANYL 50 MCG PATCH ONE (11:03)
[2019-10-28 11:09] VITALS: BP 117/74
[2019-10-28] MEDS: HYDROmorphone 2 MG/ML, 1ML IV PRN ×2 (11:19→23:48)
[2019-10-28] MEDS: FENTANYL 100 MCG PATCH TD SCH (11:20)
[2019-10-28] MEDS: FENTANYL REMOVE PATCH NOTE XX SCH (11:21)
[2019-10-28 14:30] VITALS: BP 104/67
[2019-10-28] MEDS: LACTULOSE 20 GM/30 ML UDC PO PRN (17:03)
[2019-10-28 17:10] VITALS: BP 93/58
[2019-10-28 20:38] VITALS: BP 115/67
[2019-10-28] MEDS: SIMETHICONE 80 MG CHEW TAB PO PRN (22:43)
[2019-10-28] MEDS: DAKIN'S SOLUTION 1/4 STRENGTH 1,000 ML IRRIG SOLN EXT SCH (22:44)
[2019-10-29] MEDS: OXYcodone 5 MG/5 ML ORAL.SOL UDC PO PRN ×6 (01:23→21:37)
[2019-10-29 02:20] VITALS: BP 106/71
[2019-10-29] MEDS: METHYLNALTREXONE 12 MG/0.6 ML SYR SQ SCH (04:16)
[2019-10-29] MEDS: HEPARIN 5,000 UNITS/ML, 1ML SQ SCH ×3 (05:44→21:38)
[2019-10-29] MEDS: ONDANSETRON 2MG/ML, 2ML IVPush PRN ×2 (05:44→13:18)
[2019-10-29 08:48] VITALS: BP 118/75
[2019-10-29] MEDS: DULOXETINE 30 MG CAPSULE.DR PO SCH (08:51)
[2019-10-29] MEDS: MAGNESIUM OXIDE 400 MG TABLET PO SCH (08:51)
[2019-10-29] MEDS: GABAPENTIN 250 MG/5 ML ORAL SOL PO SCH ×3 (08:51→21:38)
[2019-10-29] MEDS: BUPROPION 100 MG TABLET PO SCH ×2 (08:51→13:00)
[2019-10-29] MEDS: SEVELAMER 2.4 GM POWD.PACK JT SCH ×3 (08:51→17:24)
[2019-10-29] MEDS: DOCUSATE 50 MG/5 ML, 10ML UDC PO SCH ×2 (08:53→21:38)
[2019-10-29] MEDS: PANTOPRAZOLE 40 MG IV IVPush SCH (08:53)
[2019-10-29] MEDS: INSULIN LISPRO 100 UNITS/ML, PEN SQ-INSULIN SCH ×2 (08:55→21:00)
[2019-10-29] MEDS: INSULIN GLARGINE 100 UNITS/ML, PEN SQ-INSULIN SCH ×2 (08:55→21:39)
[2019-10-29] MEDS: SODIUM CHLORIDE FLUSH 10ML SYR IVF SCH ×2 (09:00→21:00)
[2019-10-29] MEDS: DAKIN'S SOLUTION 1/4 STRENGTH 1,000 ML IRRIG SOLN EXT SCH (09:00)
[2019-10-29] MEDS: MIDODRINE 5 MG TABLET PO SCH ×3 (09:00→21:38)
[2019-10-29] MEDS: HYDROmorphone 2 MG/ML, 1ML IV PRN ×2 (13:00→21:37)
[2019-10-29 14:00] VITALS: BP 93/57
[2019-10-29] MEDS: SIMETHICONE 80 MG CHEW TAB PO PRN (17:25)
[2019-10-29 21:05] VITALS: BP 106/70
[2019-10-30 02:06] VITALS: BP 104/68
[2019-10-30] MEDS: OXYcodone 5 MG/5 ML ORAL.SOL UDC PO PRN ×3 (03:38→13:29)
[2019-10-30] MEDS: METHYLNALTREXONE 12 MG/0.6 ML SYR SQ SCH (05:55)
[2019-10-30] MEDS: HEPARIN 5,000 UNITS/ML, 1ML SQ SCH ×3 (05:57→21:57)
[2019-10-30 06:16] LABS: ALBUMIN 2.3 g/dL (3.4-5.0); ANION GAP 7 mmol/L (5-15); CALCIUM 10.7 mg/dL (8.5-10.1); CHLORIDE 96 mmol/L (98-107); CREATININE 2.41 mg/dL (0.7-1.3)
[2019-10-30 06:40] LABS: MEAN CORPUSCULAR HEMOGLOBIN 28.4 pg (27.5-34.5); MEAN CORPUSCULAR HGB CONC 32.4 g/dL (33.2-36.2); MEAN CORPUSCULAR VOLUME 87.8 fL (81-97); MEAN PLATELET VOLUME 7.4 fL (7.4-10.4); PLATELET COUNT 266 x10^3/uL (130-400); RED BLOOD COUNT 2.59 x10^6/uL (4.38-5.82); RED CELL DISTRIBUTION WIDTH 16.1 % (9.4-14.8)
[2019-10-30 07:00] LABS: SEDIMENTATION RATE > 120 mm/hr (0-10)
[2019-10-30 07:05] LABS: HCT (SEDRATE) 22.7 % (39.2-51.8)
[2019-10-30 07:06] LABS: BASOPHILS # (AUTO) 0.04 x10^3/uL (0-0.1); BASOPHILS % (AUTO) 0 % (0-1); EOSINOPHILS # (AUTO) 0.28 x10^3/uL (0-0.4); EOSINOPHILS % (AUTO) 3 % (1-7); LYMPHOCYTES # (AUTO) 1.38 x10^3/uL (1-3.4); LYMPHOCYTES % (AUTO) 13 % (22-44); MD SCAN; MONOCYTES % (AUTO) 8 % (2-9); NEUTROPHILS # (AUTO) 7.77 x10^3/uL (1.8-6.8); NEUTROPHILS % (AUTO) 76 % (42-75)
[2019-10-30] MEDS: INSULIN LISPRO 100 UNITS/ML, PEN SQ-INSULIN SCH ×2 (08:00→21:00)
[2019-10-30] MEDS: INSULIN GLARGINE 100 UNITS/ML, PEN SQ-INSULIN SCH ×2 (08:15→21:56)
[2019-10-30] MEDS: SEVELAMER 2.4 GM POWD.PACK JT SCH ×3 (08:16→21:57)
[2019-10-30] MEDS: MAGNESIUM OXIDE 400 MG TABLET PO SCH (08:16)
[2019-10-30] MEDS: SIMETHICONE 80 MG CHEW TAB PO PRN (08:16)
[2019-10-30] MEDS: PANTOPRAZOLE 40 MG IV IVPush SCH (08:16)
[2019-10-30] MEDS: BUPROPION 100 MG TABLET PO SCH ×2 (08:16→13:30)
[2019-10-30] MEDS: DULOXETINE 30 MG CAPSULE.DR PO SCH (08:16)
[2019-10-30] MEDS: GABAPENTIN 250 MG/5 ML ORAL SOL PO SCH ×3 (08:18→21:56)
[2019-10-30] MEDS: MIDODRINE 5 MG TABLET PO SCH ×3 (08:18→21:57)
[2019-10-30] MEDS: DOCUSATE 50 MG/5 ML, 10ML UDC PO SCH ×2 (08:18→21:57)
[2019-10-30] MEDS: SODIUM CHLORIDE FLUSH 10ML SYR IVF SCH ×2 (08:19→21:00)
[2019-10-30 08:24] VITALS: BP 108/69
[2019-10-30] MEDS: HYDROmorphone 2 MG/ML, 1ML IV PRN (09:57)
[2019-10-30] MEDS: ONDANSETRON 2MG/ML, 2ML IVPush PRN ×3 (10:03→16:54)
[2019-10-30 12:20] VITALS: BP 113/71
[2019-10-30] MEDS: LACTULOSE 20 GM/30 ML UDC PO PRN (13:31)
[2019-10-30] MEDS ORDERED: HYDROmorphone 2 MG/ML, 1ML IVPush ONE (15:00)
[2019-10-30] MEDS: LORazepam 1MG TABLET PO PRN (15:09)
[2019-10-30 20:00] VITALS: BP 97/70
[2019-10-31 02:00] VITALS: BP 111/72
[2019-10-31] MEDS: METHYLNALTREXONE 12 MG/0.6 ML SYR SQ SCH (05:26)
[2019-10-31] MEDS: HEPARIN 5,000 UNITS/ML, 1ML SQ SCH ×2 (05:27→15:17)
[2019-10-31] MEDS: OXYcodone 5 MG/5 ML ORAL.SOL UDC PO PRN ×4 (05:28→20:15)
[2019-10-31 08:45] VITALS: BP 101/66
[2019-10-31] MEDS: BUPROPION 100 MG TABLET PO SCH ×2 (08:58→12:45)
[2019-10-31] MEDS: SEVELAMER 2.4 GM POWD.PACK JT SCH ×3 (08:58→16:09)
[2019-10-31] MEDS: DOCUSATE 50 MG/5 ML, 10ML UDC PO SCH (08:59)
[2019-10-31] MEDS: MIDODRINE 5 MG TABLET PO SCH ×2 (08:59→15:26)
[2019-10-31] MEDS: MAGNESIUM OXIDE 400 MG TABLET PO SCH (08:59)
[2019-10-31] MEDS: PANTOPRAZOLE 40 MG IV IVPush SCH (08:59)
[2019-10-31] MEDS: DULOXETINE 30 MG CAPSULE.DR PO SCH (08:59)
[2019-10-31] MEDS: GABAPENTIN 250 MG/5 ML ORAL SOL PO SCH ×2 (08:59→15:26)
[2019-10-31] MEDS: SODIUM CHLORIDE FLUSH 10ML SYR IVF SCH ×2 (09:00→21:00)
[2019-10-31] MEDS: INSULIN LISPRO 100 UNITS/ML, PEN SQ-INSULIN SCH ×2 (09:00→21:00)
[2019-10-31] MEDS: FENTANYL REMOVE PATCH NOTE XX SCH (10:00)
[2019-10-31] MEDS: ONDANSETRON 2MG/ML, 2ML IVPush PRN ×2 (10:12→17:05)
[2019-10-31] MEDS: INSULIN GLARGINE 100 UNITS/ML, PEN SQ-INSULIN SCH (10:13)
[2019-10-31] MEDS: HYDROmorphone 2 MG/ML, 1ML IV PRN ×3 (10:13→17:05)
[2019-10-31] MEDS: DARBEPOETIN 100 MCG/ML SQ SCH (10:14)
[2019-10-31] MEDS: DARBEPOETIN 25 MCG/ML SQ SCH (10:14)
[2019-10-31] MEDS: FENTANYL 100 MCG PATCH TD SCH (11:34)
[2019-10-31 15:07] VITALS: BP 101/68
[2019-10-31] MEDS: ALBUMIN HUMAN 25% 100 ML IV PRN (21:35)
[2019-11-01] MEDS: INSULIN GLARGINE 100 UNITS/ML, PEN SQ-INSULIN SCH ×3 (00:19→23:05)
[2019-11-01] MEDS: DOCUSATE 50 MG/5 ML, 10ML UDC PO SCH ×3 (00:20→21:24)
[2019-11-01] MEDS: GABAPENTIN 250 MG/5 ML ORAL SOL PO SCH ×4 (00:20→21:25)
[2019-11-01] MEDS: HEPARIN 5,000 UNITS/ML, 1ML SQ SCH ×4 (00:20→23:54)
[2019-11-01] MEDS: MIDODRINE 5 MG TABLET PO SCH ×4 (00:21→21:25)
[2019-11-01] MEDS: OXYcodone 5 MG/5 ML ORAL.SOL UDC PO PRN ×5 (00:21→22:59)
[2019-11-01 00:42] VITALS: BP 109/67
[2019-11-01] MEDS: LACTULOSE 20 GM/30 ML UDC PO PRN (05:48)
[2019-11-01] MEDS: SIMETHICONE 80 MG CHEW TAB PO PRN (05:49)
[2019-11-01] MEDS: METHYLNALTREXONE 12 MG/0.6 ML SYR SQ SCH (05:49)
[2019-11-01] MEDS ORDERED: HYDROmorphone 1 MG/ML, 1ML VIAL ONE ×2 (08:25→12:42)
[2019-11-01 08:29] VITALS: BP 115/71
[2019-11-01] MEDS: SEVELAMER 2.4 GM POWD.PACK JT SCH ×3 (08:51→16:23)
[2019-11-01] MEDS: HYDROmorphone 2 MG/ML, 1ML IV PRN ×3 (08:53→22:28)
[2019-11-01] MEDS: MAGNESIUM OXIDE 400 MG TABLET PO SCH (08:53)
[2019-11-01] MEDS: BUPROPION 100 MG TABLET PO SCH ×2 (08:54→12:49)
[2019-11-01] MEDS: PANTOPRAZOLE 40 MG IV IVPush SCH (08:56)
[2019-11-01] MEDS: SODIUM CHLORIDE FLUSH 10ML SYR IVF SCH ×2 (08:56→21:25)
[2019-11-01] MEDS: INSULIN LISPRO 100 UNITS/ML, PEN SQ-INSULIN SCH ×2 (09:02→21:00)
[2019-11-01] MEDS: DULOXETINE 30 MG CAPSULE.DR PO SCH (09:02)
[2019-11-01] MEDS: ONDANSETRON 2MG/ML, 2ML IVPush PRN ×2 (09:30→21:27)
[2019-11-01] MEDS: HYDROmorphone 2 MG/ML, 1ML IVPush PRN (11:10)
[2019-11-01 14:00] VITALS: BP 98/63
[2019-11-02 03:55] VITALS: BP 96/64
[2019-11-02] MEDS: METHYLNALTREXONE 12 MG/0.6 ML SYR SQ SCH (04:38)
[2019-11-02 07:55] VITALS: BP 112/70
[2019-11-02] MEDS ORDERED: HYDROmorphone 1 MG/ML, 1ML VIAL ONE ×2 (08:08→12:08)
[2019-11-02] MEDS: ONDANSETRON 2MG/ML, 2ML IVPush PRN ×2 (08:13→23:32)
[2019-11-02] MEDS: SODIUM CHLORIDE FLUSH 10ML SYR IVF SCH ×2 (08:14→22:24)
[2019-11-02] MEDS: HYDROmorphone 2 MG/ML, 1ML IV PRN ×4 (08:20→23:59)
[2019-11-02] MEDS: HEPARIN 5,000 UNITS/ML, 1ML SQ SCH ×3 (08:25→23:34)
[2019-11-02] MEDS: SEVELAMER 2.4 GM POWD.PACK JT SCH ×3 (08:26→16:10)
[2019-11-02] MEDS: PANTOPRAZOLE 40 MG IV IVPush SCH (08:26)
[2019-11-02] MEDS: BUPROPION 100 MG TABLET PO SCH ×2 (08:27→12:55)
[2019-11-02] MEDS: MAGNESIUM OXIDE 400 MG TABLET PO SCH (08:28)
[2019-11-02] MEDS: GABAPENTIN 250 MG/5 ML ORAL SOL PO SCH ×3 (08:28→22:16)
[2019-11-02] MEDS: SIMETHICONE 80 MG CHEW TAB PO PRN ×2 (08:28→22:17)
[2019-11-02] MEDS: DULOXETINE 30 MG CAPSULE.DR PO SCH (08:30)
[2019-11-02] MEDS: DOCUSATE 50 MG/5 ML, 10ML UDC PO SCH ×2 (08:30→22:24)
[2019-11-02] MEDS: MIDODRINE 5 MG TABLET PO SCH ×3 (08:30→22:17)
[2019-11-02] MEDS: INSULIN LISPRO 100 UNITS/ML, PEN SQ-INSULIN SCH ×2 (08:34→21:00)
[2019-11-02] MEDS: INSULIN GLARGINE 100 UNITS/ML, PEN SQ-INSULIN SCH (08:34)
[2019-11-02] MEDS: OXYcodone 5 MG/5 ML ORAL.SOL UDC PO PRN ×3 (09:00→19:48)
[2019-11-02 14:00] VITALS: BP 114/68
--- NOTE | 2019-11-02 14:19 | NUR ---
- GROUND / NTL with puree veggies and puree fruit - UP AT 90 DEGREES - 1:1 assist - Cup ok no straws Addendum: 11/02/19 at [address] Amended: Links added.
[2019-11-02] MEDS: LORazepam 1MG TABLET PO PRN (19:48)
[2019-11-02 21:59] VITALS: BP 101/68
[2019-11-02] MEDS: LACTULOSE 20 GM/30 ML UDC PO PRN (22:24)
[2019-11-02] MEDS: METOCLOPRAMIDE 5 MG/ML, 2ML IV PRN (23:33)
[2019-11-03] MEDS: INSULIN GLARGINE 100 UNITS/ML, PEN SQ-INSULIN SCH ×3 (01:38→20:36)
[2019-11-03 03:24] VITALS: BP 113/74
[2019-11-03] MEDS: METHYLNALTREXONE 12 MG/0.6 ML SYR SQ SCH (04:58)
[2019-11-03] MEDS: HEPARIN 5,000 UNITS/ML, 1ML SQ SCH ×3 (08:08→23:50)
[2019-11-03] MEDS: MAGNESIUM OXIDE 400 MG TABLET PO SCH (08:08)
[2019-11-03] MEDS: SODIUM CHLORIDE FLUSH 10ML SYR IVF SCH ×2 (08:08→20:19)
[2019-11-03] MEDS: MIDODRINE 5 MG TABLET PO SCH ×3 (08:08→20:18)
[2019-11-03] MEDS: PANTOPRAZOLE 40 MG IV IVPush SCH (08:08)
[2019-11-03] MEDS: DOCUSATE 50 MG/5 ML, 10ML UDC PO SCH ×2 (08:09→20:17)
[2019-11-03] MEDS: SEVELAMER 2.4 GM POWD.PACK JT SCH ×3 (08:09→16:53)
[2019-11-03] MEDS: BUPROPION 100 MG TABLET PO SCH ×2 (08:09→11:50)
[2019-11-03] MEDS: DULOXETINE 30 MG CAPSULE.DR PO SCH (08:09)
[2019-11-03] MEDS: GABAPENTIN 250 MG/5 ML ORAL SOL PO SCH ×3 (08:36→20:19)
[2019-11-03] MEDS: INSULIN LISPRO 100 UNITS/ML, PEN SQ-INSULIN SCH ×2 (08:36→20:36)
[2019-11-03] MEDS: HYDROmorphone 2 MG/ML, 1ML IV PRN ×3 (08:37→20:18)
[2019-11-03] MEDS: METOCLOPRAMIDE 5 MG/ML, 2ML IV PRN (08:37)
[2019-11-03] MEDS: FENTANYL REMOVE PATCH NOTE XX SCH (09:49)
[2019-11-03] MEDS: FENTANYL 100 MCG PATCH TD SCH (09:50)
[2019-11-03 09:51] VITALS: BP 117/78
[2019-11-03] MEDS: OXYcodone 5 MG/5 ML ORAL.SOL UDC PO PRN ×4 (09:59→22:15)
[2019-11-03] MEDS: ONDANSETRON 2MG/ML, 2ML IVPush PRN (10:52)
[2019-11-03] MEDS: HYDROmorphone 2 MG/ML, 1ML IVPush PRN (10:57)
[2019-11-03 13:20] VITALS: BP 106/69
[2019-11-03 18:57] VITALS: BP 138/80
[2019-11-03] MEDS: POLYETHYLENE GLYCOL 17 GM PACKET PO PRN (20:19)
[2019-11-04] MEDS: OXYcodone 5 MG/5 ML ORAL.SOL UDC PO PRN ×5 (03:46→22:08)
[2019-11-04] MEDS: METHYLNALTREXONE 12 MG/0.6 ML SYR SQ SCH (03:46)
[2019-11-04] MEDS: HEPARIN 5,000 UNITS/ML, 1ML SQ SCH ×2 (07:52→16:04)
[2019-11-04] MEDS: BUPROPION 100 MG TABLET PO SCH ×2 (07:52→12:10)
[2019-11-04] MEDS: SODIUM CHLORIDE FLUSH 10ML SYR IVF SCH ×2 (07:53→22:10)
[2019-11-04] MEDS: PANTOPRAZOLE 40 MG IV IVPush SCH (07:54)
[2019-11-04] MEDS: MAGNESIUM OXIDE 400 MG TABLET PO SCH (07:54)
[2019-11-04] MEDS: GABAPENTIN 250 MG/5 ML ORAL SOL PO SCH ×3 (07:54→22:11)
[2019-11-04] MEDS: LACTULOSE 20 GM/30 ML UDC PO PRN (07:54)
[2019-11-04] MEDS: SEVELAMER 2.4 GM POWD.PACK JT SCH ×3 (07:54→18:12)
[2019-11-04] MEDS: DOCUSATE 50 MG/5 ML, 10ML UDC PO SCH ×2 (07:54→22:10)
[2019-11-04] MEDS: DULOXETINE 30 MG CAPSULE.DR PO SCH (07:54)
[2019-11-04] MEDS: MIDODRINE 5 MG TABLET PO SCH ×3 (07:55→22:10)
[2019-11-04 08:01] VITALS: BP 110/72
[2019-11-04] MEDS: ONDANSETRON 2MG/ML, 2ML IVPush PRN (08:33)
[2019-11-04] MEDS: HYDROmorphone 2 MG/ML, 1ML IV PRN ×3 (08:33→18:13)
[2019-11-04] MEDS: INSULIN LISPRO 100 UNITS/ML, PEN SQ-INSULIN SCH ×2 (08:43→23:26)
[2019-11-04] MEDS: INSULIN GLARGINE 100 UNITS/ML, PEN SQ-INSULIN SCH ×2 (08:49→23:26)
[2019-11-04] MEDS: SIMETHICONE 80 MG CHEW TAB PO PRN ×2 (13:34→22:11)
[2019-11-04 13:41] VITALS: BP 121/76
[2019-11-04 16:05] VITALS: BP 112/73
[2019-11-04 21:30] VITALS: BP 105/71
[2019-11-04] MEDS: LORazepam 1MG TABLET PO PRN (22:08)
[2019-11-05] MEDS: HEPARIN 5,000 UNITS/ML, 1ML SQ SCH ×4 (00:42→23:24)
[2019-11-05 03:15] VITALS: BP 110/71
[2019-11-05] MEDS: METHYLNALTREXONE 12 MG/0.6 ML SYR SQ SCH (04:10)
[2019-11-05 08:07] VITALS: BP 117/73
[2019-11-05] MEDS: PANTOPRAZOLE 40 MG IV IVPush SCH (08:44)
[2019-11-05] MEDS: SEVELAMER 2.4 GM POWD.PACK JT SCH ×3 (08:44→15:45)
[2019-11-05] MEDS: DOCUSATE 50 MG/5 ML, 10ML UDC PO SCH ×2 (08:45→21:03)
[2019-11-05] MEDS: HYDROmorphone 2 MG/ML, 1ML IV PRN ×3 (08:45→17:00)
[2019-11-05] MEDS: GABAPENTIN 250 MG/5 ML ORAL SOL PO SCH ×3 (08:45→21:03)
[2019-11-05] MEDS: BUPROPION 100 MG TABLET PO SCH ×2 (08:45→11:35)
[2019-11-05] MEDS: MAGNESIUM OXIDE 400 MG TABLET PO SCH (08:45)
[2019-11-05] MEDS: DULOXETINE 30 MG CAPSULE.DR PO SCH (08:45)
[2019-11-05] MEDS: INSULIN LISPRO 100 UNITS/ML, PEN SQ-INSULIN SCH ×2 (08:46→21:03)
[2019-11-05] MEDS: SODIUM CHLORIDE FLUSH 10ML SYR IVF SCH ×2 (08:46→21:03)
[2019-11-05] MEDS: MIDODRINE 5 MG TABLET PO SCH ×3 (08:46→21:03)
[2019-11-05] MEDS: ONDANSETRON 2MG/ML, 2ML IVPush PRN (08:59)
[2019-11-05] MEDS: INSULIN GLARGINE 100 UNITS/ML, PEN SQ-INSULIN SCH ×2 (09:00→21:04)
[2019-11-05 13:55] VITALS: BP 127/78
[2019-11-05] MEDS: OXYcodone 5 MG/5 ML ORAL.SOL UDC PO PRN ×3 (13:55→22:01)
[2019-11-05 15:43] VITALS: BP 109/70
[2019-11-05 20:54] VITALS: BP 106/69
[2019-11-05] MEDS: LORazepam 1MG TABLET PO PRN (23:24)
[2019-11-06 02:05] VITALS: BP 105/70
[2019-11-06] MEDS: METHYLNALTREXONE 12 MG/0.6 ML SYR SQ SCH (04:55)
[2019-11-06 05:29] LABS: CHLORIDE 98 mmol/L (98-107)
[2019-11-06] MEDS: OXYcodone 5 MG/5 ML ORAL.SOL UDC PO PRN ×3 (05:34→20:33)
[2019-11-06 05:36] LABS: ALBUMIN 2.3 g/dL (3.4-5.0); CALCIUM 10.5 mg/dL (8.5-10.1); CREATININE 2.44 mg/dL (0.7-1.3)
[2019-11-06 05:41] LABS: ANION GAP 8 mmol/L (5-15)
[2019-11-06 08:15] VITALS: BP 125/80
[2019-11-06] MEDS: HYDROmorphone 2 MG/ML, 1ML IV PRN ×3 (08:26→17:27)
[2019-11-06] MEDS: SEVELAMER 2.4 GM POWD.PACK JT SCH ×3 (08:52→16:18)
[2019-11-06] MEDS: PANTOPRAZOLE 40 MG IV IVPush SCH (08:52)
[2019-11-06] MEDS: MIDODRINE 5 MG TABLET PO SCH ×4 (08:53→20:40)
[2019-11-06] MEDS: BUPROPION 100 MG TABLET PO SCH ×2 (08:53→12:23)
[2019-11-06] MEDS: DULOXETINE 30 MG CAPSULE.DR PO SCH (08:53)
[2019-11-06] MEDS: HEPARIN 5,000 UNITS/ML, 1ML SQ SCH ×2 (08:53→16:18)
[2019-11-06] MEDS: MAGNESIUM OXIDE 400 MG TABLET PO SCH (08:53)
[2019-11-06] MEDS: DOCUSATE 50 MG/5 ML, 10ML UDC PO SCH ×2 (08:53→20:34)
[2019-11-06] MEDS: INSULIN LISPRO 100 UNITS/ML, PEN SQ-INSULIN SCH ×2 (08:53→20:27)
[2019-11-06] MEDS: LACTULOSE 20 GM/30 ML UDC PO PRN (09:49)
[2019-11-06] MEDS: INSULIN GLARGINE 100 UNITS/ML, PEN SQ-INSULIN SCH ×2 (09:50→20:35)
[2019-11-06] MEDS: SODIUM CHLORIDE FLUSH 10ML SYR IVF SCH ×2 (09:50→20:35)
[2019-11-06] MEDS: FENTANYL 100 MCG PATCH TD SCH (09:50)
[2019-11-06] MEDS: FENTANYL REMOVE PATCH NOTE XX SCH (09:51)
[2019-11-06] MEDS: GABAPENTIN 250 MG/5 ML ORAL SOL PO SCH ×3 (09:51→20:34)
[2019-11-06] MEDS: HYDROmorphone 2 MG/ML, 1ML IVPush PRN (10:57)
[2019-11-06 16:15] VITALS: BP 115/74
[2019-11-06 20:30] VITALS: BP 115/73
[2019-11-07] MEDS: OXYcodone 5 MG/5 ML ORAL.SOL UDC PO PRN ×6 (00:45→21:47)
[2019-11-07 00:46] VITALS: BP 105/68
[2019-11-07] MEDS: HEPARIN 5,000 UNITS/ML, 1ML SQ SCH ×3 (00:46→15:51)
[2019-11-07] MEDS: LORazepam 1MG TABLET PO PRN (00:52)
[2019-11-07 07:52] VITALS: BP 105/69
[2019-11-07] MEDS: BUPROPION 100 MG TABLET PO SCH ×2 (07:56→11:43)
[2019-11-07] MEDS: SEVELAMER 2.4 GM POWD.PACK JT SCH ×3 (07:56→16:53)
[2019-11-07] MEDS: PANTOPRAZOLE 40 MG IV IVPush SCH (07:57)
[2019-11-07] MEDS: MIDODRINE 5 MG TABLET PO SCH ×3 (07:57→21:48)
[2019-11-07] MEDS: MAGNESIUM OXIDE 400 MG TABLET PO SCH (07:57)
[2019-11-07] MEDS: DULOXETINE 30 MG CAPSULE.DR PO SCH (07:57)
[2019-11-07] MEDS: DOCUSATE 50 MG/5 ML, 10ML UDC PO SCH ×2 (07:57→21:46)
[2019-11-07] MEDS: SODIUM CHLORIDE FLUSH 10ML SYR IVF SCH ×2 (07:58→21:48)
[2019-11-07] MEDS: INSULIN LISPRO 100 UNITS/ML, PEN SQ-INSULIN SCH ×2 (07:59→21:00)
[2019-11-07] MEDS: GABAPENTIN 250 MG/5 ML ORAL SOL PO SCH ×3 (08:03→22:28)
[2019-11-07] MEDS: METHYLNALTREXONE 12 MG/0.6 ML SYR SQ SCH (09:23)
[2019-11-07] MEDS: DARBEPOETIN 25 MCG/ML SQ SCH (09:24)
[2019-11-07] MEDS: DARBEPOETIN 100 MCG/ML SQ SCH (09:24)
[2019-11-07] MEDS: INSULIN GLARGINE 100 UNITS/ML, PEN SQ-INSULIN SCH ×2 (09:25→22:28)
[2019-11-07 13:46] VITALS: BP 107/70
[2019-11-07] MEDS: ONDANSETRON 2MG/ML, 2ML IVPush PRN (16:54)
[2019-11-07] MEDS: HYDROmorphone 2 MG/ML, 1ML IV PRN ×2 (16:54→21:47)
[2019-11-07 19:21] VITALS: BP 111/70
[2019-11-07] MEDS: POLYETHYLENE GLYCOL 17 GM PACKET PO PRN (21:48)
[2019-11-08] VITALS (7 sets, daily range): BP systolic 104–125; BP diastolic 67–78
[2019-11-08] MEDS: HEPARIN 5,000 UNITS/ML, 1ML SQ SCH ×3 (00:14→17:28)
[2019-11-08] MEDS: OXYcodone 5 MG/5 ML ORAL.SOL UDC PO PRN ×4 (03:05→17:25)
[2019-11-08 06:06] LABS: ALBUMIN 2.1 g/dL (3.4-5.0); ANION GAP 9 mmol/L (5-15); CALCIUM 10.4 mg/dL (8.5-10.1); CHLORIDE 99 mmol/L (98-107)
[2019-11-08 06:09] LABS: CREATININE 2.96 mg/dL (0.7-1.3)
[2019-11-08] MEDS: PANTOPRAZOLE 40 MG IV IVPush SCH (08:56)
[2019-11-08] MEDS: SODIUM CHLORIDE FLUSH 10ML SYR IVF SCH ×2 (08:57→21:37)
[2019-11-08] MEDS: DOCUSATE 50 MG/5 ML, 10ML UDC PO SCH ×2 (09:11→21:37)
[2019-11-08] MEDS: SEVELAMER 2.4 GM POWD.PACK JT SCH ×3 (09:11→17:25)
[2019-11-08] MEDS: LACTULOSE 20 GM/30 ML UDC PO PRN (09:11)
[2019-11-08] MEDS: DULOXETINE 30 MG CAPSULE.DR PO SCH (09:14)
[2019-11-08] MEDS: METHYLNALTREXONE 12 MG/0.6 ML SYR SQ SCH (09:14)
[2019-11-08] MEDS: GABAPENTIN 250 MG/5 ML ORAL SOL PO SCH ×3 (09:16→21:37)
[2019-11-08] MEDS: BUPROPION 100 MG TABLET PO SCH ×2 (09:16→12:09)
[2019-11-08] MEDS: SIMETHICONE 80 MG CHEW TAB PO PRN (09:17)
[2019-11-08] MEDS: MIDODRINE 5 MG TABLET PO SCH ×3 (09:17→21:00)
[2019-11-08] MEDS: MAGNESIUM OXIDE 400 MG TABLET PO SCH (09:17)
[2019-11-08] MEDS: INSULIN LISPRO 100 UNITS/ML, PEN SQ-INSULIN SCH ×2 (09:51→21:00)
[2019-11-08] MEDS: INSULIN GLARGINE 100 UNITS/ML, PEN SQ-INSULIN SCH ×2 (09:52→21:38)
[2019-11-08] MEDS: ONDANSETRON 2MG/ML, 2ML IVPush PRN (09:53)
[2019-11-08] MEDS: HYDROmorphone 2 MG/ML, 1ML IV PRN ×3 (10:03→17:26)
[2019-11-08] MEDS: HYDROmorphone 2 MG/ML, 1ML IVPush PRN (13:24)
[2019-11-08 13:40] LABS: CREATININE CLEARANCE,URINE 6.6 (70.0-140.0)
[2019-11-08] MEDS: LORazepam 1MG TABLET PO PRN (21:38)
[2019-11-09] MEDS: HEPARIN 5,000 UNITS/ML, 1ML SQ SCH ×3 (02:07→22:01)
[2019-11-09] MEDS: OXYcodone 5 MG/5 ML ORAL.SOL UDC PO PRN ×5 (02:11→19:40)
[2019-11-09] MEDS: INSULIN LISPRO 100 UNITS/ML, PEN SQ-INSULIN SCH ×2 (08:28→23:31)
[2019-11-09] MEDS ORDERED: HYDROmorphone 2 MG/ML, 1ML IVPush PRN (08:30)
[2019-11-09] MEDS ORDERED: LIDOCAINE JELLY 2%, 30GM TP PRN (08:30)
[2019-11-09 08:51] VITALS: BP 121/72
[2019-11-09] MEDS: SEVELAMER 2.4 GM POWD.PACK JT SCH ×3 (08:55→17:09)
[2019-11-09] MEDS: SODIUM CHLORIDE FLUSH 10ML SYR IVF SCH ×2 (08:57→22:04)
[2019-11-09] MEDS: SIMETHICONE 80 MG CHEW TAB PO PRN (08:58)
[2019-11-09] MEDS: HYDROmorphone 2 MG/ML, 1ML IV PRN ×2 (08:58→12:44)
[2019-11-09] MEDS: ONDANSETRON 2MG/ML, 2ML IVPush PRN ×2 (08:59→23:47)
[2019-11-09] MEDS: MIDODRINE 5 MG TABLET PO SCH ×3 (08:59→22:05)
[2019-11-09] MEDS: DOCUSATE 50 MG/5 ML, 10ML UDC PO SCH ×2 (08:59→22:04)
[2019-11-09] MEDS: PANTOPRAZOLE 40 MG IV IVPush SCH (08:59)
[2019-11-09] MEDS ORDERED: LIDOCAINE GEL 2%, 5ML MM PRN (09:00)
[2019-11-09] MEDS: DULOXETINE 30 MG CAPSULE.DR PO SCH (09:00)
[2019-11-09] MEDS: MAGNESIUM OXIDE 400 MG TABLET PO SCH (09:00)
[2019-11-09] MEDS: GABAPENTIN 250 MG/5 ML ORAL SOL PO SCH ×3 (09:00→22:04)
[2019-11-09] MEDS: BUPROPION 100 MG TABLET PO SCH ×2 (09:00→12:36)
[2019-11-09] MEDS: INSULIN GLARGINE 100 UNITS/ML, PEN SQ-INSULIN SCH ×2 (09:16→23:31)
[2019-11-09] MEDS ORDERED: ONDANSETRON 2MG/ML, 2ML IVPush PRN (10:30)
[2019-11-09] MEDS: FENTANYL 100 MCG PATCH TD SCH (10:43)
[2019-11-09] MEDS: FENTANYL REMOVE PATCH NOTE XX SCH (10:44)
[2019-11-09] MEDS: HYDROmorphone 2 MG/ML, 1ML IVPush PRN (11:06)
[2019-11-09 15:07] VITALS: BP 94/64
[2019-11-09] MEDS: LORazepam 1MG TABLET PO PRN (18:10)
[2019-11-09 19:05] VITALS: BP 110/75
[2019-11-09] MEDS: METHYLNALTREXONE 12 MG/0.6 ML SYR SQ SCH (22:01)
[2019-11-10] MEDS: HYDROmorphone 2 MG/ML, 1ML IV PRN ×4 (00:41→16:51)
[2019-11-10 03:30] VITALS: BP 106/70
[2019-11-10] MEDS: HEPARIN 5,000 UNITS/ML, 1ML SQ SCH ×3 (04:17→19:45)
[2019-11-10] MEDS: OXYcodone 5 MG/5 ML ORAL.SOL UDC PO PRN ×3 (04:22→19:49)
[2019-11-10 06:56] LABS: ALBUMIN 2.1 g/dL (3.4-5.0); ANION GAP 8 mmol/L (5-15); CALCIUM 9.9 mg/dL (8.5-10.1); CHLORIDE 99 mmol/L (98-107); CREATININE 2.19 mg/dL (0.7-1.3)
[2019-11-10 07:58] VITALS: BP 121/82
[2019-11-10] MEDS: BUPROPION 100 MG TABLET PO SCH ×2 (08:00→12:13)
[2019-11-10] MEDS: SEVELAMER 2.4 GM POWD.PACK JT SCH ×3 (08:00→16:51)
[2019-11-10] MEDS: SODIUM CHLORIDE FLUSH 10ML SYR IVF SCH ×2 (08:00→19:47)
[2019-11-10] MEDS: PANTOPRAZOLE 40 MG IV IVPush SCH (08:00)
[2019-11-10] MEDS: GABAPENTIN 250 MG/5 ML ORAL SOL PO SCH ×3 (08:00→19:48)
[2019-11-10] MEDS: DOCUSATE 50 MG/5 ML, 10ML UDC PO SCH ×2 (08:00→19:47)
[2019-11-10] MEDS: MIDODRINE 5 MG TABLET PO SCH ×3 (08:00→19:48)
[2019-11-10] MEDS: DULOXETINE 30 MG CAPSULE.DR PO SCH (08:00)
[2019-11-10] MEDS: MAGNESIUM OXIDE 400 MG TABLET PO SCH (08:20)
[2019-11-10] MEDS: INSULIN LISPRO 100 UNITS/ML, PEN SQ-INSULIN SCH ×2 (08:31→22:52)
[2019-11-10] MEDS: INSULIN GLARGINE 100 UNITS/ML, PEN SQ-INSULIN SCH ×2 (09:05→22:52)
[2019-11-10] MEDS: HYDROmorphone 2 MG/ML, 1ML IVPush PRN ×2 (10:57→13:16)
--- NOTE | 2019-11-10 12:48 | NUR ---
CHOPPED/NTL with well cooked veggies - UP AT 90 DEGREES - 1:1 assist - Cup ok no straws Addendum: 11/10/19 at [address] Amended: Links added.
[2019-11-10 14:51] VITALS: BP 111/70
[2019-11-10 19:14] VITALS: BP 106/68
[2019-11-10] MEDS: METHYLNALTREXONE 12 MG/0.6 ML SYR SQ SCH (19:46)
[2019-11-10] MEDS: ONDANSETRON 2MG/ML, 2ML IVPush PRN (20:21)
[2019-11-10] MEDS: LORazepam 1MG TABLET PO PRN (20:22)
[2019-11-11 00:56] VITALS: BP 102/67
[2019-11-11] MEDS: OXYcodone 5 MG/5 ML ORAL.SOL UDC PO PRN ×5 (02:35→21:20)
[2019-11-11] MEDS: HEPARIN 5,000 UNITS/ML, 1ML SQ SCH ×3 (05:00→21:18)
[2019-11-11] MEDS: INSULIN LISPRO 100 UNITS/ML, PEN SQ-INSULIN SCH ×2 (07:43→22:37)
[2019-11-11 07:45] VITALS: BP 113/75
[2019-11-11] MEDS: DOCUSATE 50 MG/5 ML, 10ML UDC PO SCH ×2 (07:56→21:19)
[2019-11-11] MEDS: BUPROPION 100 MG TABLET PO SCH ×2 (07:56→13:04)
[2019-11-11] MEDS: MAGNESIUM OXIDE 400 MG TABLET PO SCH (07:56)
[2019-11-11] MEDS: PANTOPRAZOLE 40 MG IV IVPush SCH (07:56)
[2019-11-11] MEDS: SEVELAMER 2.4 GM POWD.PACK JT SCH ×3 (07:56→16:43)
[2019-11-11] MEDS: SODIUM CHLORIDE FLUSH 10ML SYR IVF SCH ×2 (07:57→21:18)
[2019-11-11] MEDS: DULOXETINE 30 MG CAPSULE.DR PO SCH (07:57)
[2019-11-11] MEDS: GABAPENTIN 250 MG/5 ML ORAL SOL PO SCH ×3 (07:57→21:19)
[2019-11-11] MEDS: HYDROmorphone 2 MG/ML, 1ML IV PRN ×3 (07:58→16:43)
[2019-11-11] MEDS: MIDODRINE 5 MG TABLET PO SCH ×3 (08:08→21:19)
[2019-11-11] MEDS: INSULIN GLARGINE 100 UNITS/ML, PEN SQ-INSULIN SCH ×2 (08:08→22:37)
[2019-11-11] MEDS: ONDANSETRON 2MG/ML, 2ML IVPush PRN (13:59)
[2019-11-11 14:30] VITALS: BP 109/77
[2019-11-11 16:01] VITALS: BP 113/70
[2019-11-11] MEDS: METOCLOPRAMIDE 5 MG/ML, 2ML IV PRN (16:42)
[2019-11-11 19:21] VITALS: BP 102/66
[2019-11-11] MEDS: LORazepam 1MG TABLET PO PRN (21:19)
[2019-11-11] MEDS: BACLOFEN 10 MG TABLET PO PRN (21:19)
[2019-11-11] MEDS: ACETAMINOPHEN 650 MG/20.3 ML UDC PO PRN (21:19)
[2019-11-11] MEDS: METHYLNALTREXONE 12 MG/0.6 ML SYR SQ SCH (22:36)
[2019-11-11] MEDS: SIMETHICONE 80 MG CHEW TAB PO PRN (23:55)
[2019-11-12 01:10] VITALS: BP 131/80
[2019-11-12] MEDS: HEPARIN 5,000 UNITS/ML, 1ML SQ SCH ×3 (04:46→21:33)
[2019-11-12] MEDS: OXYcodone 5 MG/5 ML ORAL.SOL UDC PO PRN ×5 (05:01→23:38)
[2019-11-12 07:27] VITALS: BP 111/73
[2019-11-12] MEDS: HYDROmorphone 2 MG/ML, 1ML IV PRN ×3 (08:42→17:22)
[2019-11-12] MEDS: GABAPENTIN 250 MG/5 ML ORAL SOL PO SCH ×3 (08:42→21:33)
[2019-11-12] MEDS: DOCUSATE 50 MG/5 ML, 10ML UDC PO SCH ×2 (08:42→21:33)
[2019-11-12] MEDS: SEVELAMER 2.4 GM POWD.PACK JT SCH ×3 (08:42→16:56)
[2019-11-12] MEDS: DULOXETINE 30 MG CAPSULE.DR PO SCH (08:43)
[2019-11-12] MEDS: MIDODRINE 5 MG TABLET PO SCH ×3 (08:43→21:33)
[2019-11-12] MEDS: SODIUM CHLORIDE FLUSH 10ML SYR IVF SCH ×2 (08:43→21:34)
[2019-11-12] MEDS: MAGNESIUM OXIDE 400 MG TABLET PO SCH (08:43)
[2019-11-12] MEDS: BUPROPION 100 MG TABLET PO SCH ×2 (08:43→12:15)
[2019-11-12] MEDS: PANTOPRAZOLE 40 MG IV IVPush SCH (08:43)
[2019-11-12] MEDS: INSULIN LISPRO 100 UNITS/ML, PEN SQ-INSULIN SCH ×2 (08:44→21:00)
[2019-11-12] MEDS: INSULIN GLARGINE 100 UNITS/ML, PEN SQ-INSULIN SCH ×2 (08:56→21:32)
[2019-11-12] MEDS: ONDANSETRON 2MG/ML, 2ML IVPush PRN (08:56)
[2019-11-12] MEDS: FENTANYL REMOVE PATCH NOTE XX SCH (10:49)
[2019-11-12] MEDS: FENTANYL 100 MCG PATCH TD SCH (10:49)
[2019-11-12 14:31] VITALS: BP 117/72
[2019-11-12 22:04] VITALS: BP 104/68
[2019-11-12] MEDS: METHYLNALTREXONE 12 MG/0.6 ML SYR SQ SCH (22:38)
[2019-11-13] MEDS: HEPARIN 5,000 UNITS/ML, 1ML SQ SCH ×3 (05:10→22:46)
[2019-11-13] MEDS: OXYcodone 5 MG/5 ML ORAL.SOL UDC PO PRN ×4 (05:14→22:46)
[2019-11-13 05:27] VITALS: BP 115/73
[2019-11-13 06:13] LABS: ALBUMIN 2.1 g/dL (3.4-5.0); ANION GAP 9 mmol/L (5-15); CHLORIDE 101 mmol/L (98-107)
[2019-11-13 06:19] LABS: MEAN CORPUSCULAR HGB CONC 32.6 g/dL (33.2-36.2); MEAN CORPUSCULAR VOLUME 88.7 fL (81-97); MEAN PLATELET VOLUME 7.5 fL (7.4-10.4); PLATELET COUNT 234 x10^3/uL (130-400); RED BLOOD COUNT 2.55 x10^6/uL (4.38-5.82); RED CELL DISTRIBUTION WIDTH 16.4 % (9.4-14.8)
[2019-11-13 06:21] LABS: CREATININE 2.44 mg/dL (0.7-1.3)
[2019-11-13 06:26] LABS: SEDIMENTATION RATE > 120 mm/hr (0-10)
[2019-11-13 06:29] LABS: HCT (SEDRATE) 22.6 % (39.2-51.8)
[2019-11-13 06:38] VITALS: BP 105/69
[2019-11-13 06:49] LABS: BASOPHILS # (AUTO) 0.02 x10^3/uL (0-0.1); BASOPHILS % (AUTO) 0 % (0-1); EOSINOPHILS % (AUTO) 9 % (1-7); LYMPHOCYTES # (AUTO) 1.35 x10^3/uL (1-3.4); LYMPHOCYTES % (AUTO) 15 % (22-44); MD SCAN; MONOCYTES % (AUTO) 8 % (2-9); NEUTROPHILS % (AUTO) 67 % (42-75)
[2019-11-13] MEDS: INSULIN LISPRO 100 UNITS/ML, PEN SQ-INSULIN SCH ×2 (09:00→20:59)
[2019-11-13] MEDS: HYDROmorphone 2 MG/ML, 1ML IVPush PRN (09:11)
[2019-11-13] MEDS: PANTOPRAZOLE 40 MG IV IVPush SCH (09:16)
[2019-11-13] MEDS: SEVELAMER 2.4 GM POWD.PACK JT SCH ×3 (09:16→15:38)
[2019-11-13] MEDS: MAGNESIUM OXIDE 400 MG TABLET PO SCH (09:16)
[2019-11-13] MEDS: DOCUSATE 50 MG/5 ML, 10ML UDC PO SCH ×2 (09:16→20:54)
[2019-11-13] MEDS: SODIUM CHLORIDE FLUSH 10ML SYR IVF SCH ×2 (09:16→20:53)
[2019-11-13] MEDS: BUPROPION 100 MG TABLET PO SCH ×2 (09:16→12:12)
[2019-11-13] MEDS: DULOXETINE 30 MG CAPSULE.DR PO SCH (09:16)
[2019-11-13] MEDS: HYDROmorphone 2 MG/ML, 1ML IV PRN ×3 (09:18→17:39)
[2019-11-13] MEDS: ONDANSETRON 2MG/ML, 2ML IVPush PRN (09:25)
[2019-11-13] MEDS: GABAPENTIN 250 MG/5 ML ORAL SOL PO SCH ×3 (09:27→20:56)
[2019-11-13 09:50] VITALS: BP 118/75
[2019-11-13] MEDS: MIDODRINE 5 MG TABLET PO SCH ×3 (09:54→20:59)
[2019-11-13] MEDS: INSULIN GLARGINE 100 UNITS/ML, PEN SQ-INSULIN SCH ×2 (09:54→21:02)
[2019-11-13 13:16] VITALS: BP 105/70
[2019-11-13 15:42] VITALS: BP 110/71
[2019-11-13 21:00] VITALS: BP 106/67
[2019-11-13] MEDS: LORazepam 1MG TABLET PO PRN (22:46)
[2019-11-13] MEDS: METHYLNALTREXONE 12 MG/0.6 ML SYR SQ SCH (23:35)
[2019-11-14] MEDS: OXYcodone 5 MG/5 ML ORAL.SOL UDC PO PRN ×5 (05:06→23:36)
[2019-11-14 05:19] VITALS: BP 113/66
[2019-11-14] MEDS: HEPARIN 5,000 UNITS/ML, 1ML SQ SCH ×3 (06:04→22:41)
[2019-11-14 06:33] LABS: ALBUMIN 2.1 g/dL (3.4-5.0); ANION GAP 9 mmol/L (5-15); CALCIUM 10.5 mg/dL (8.5-10.1); CHLORIDE 103 mmol/L (98-107)
[2019-11-14 06:37] LABS: ALANINE AMINOTRANSFERASE 18 U/L (12-78); ALKALINE PHOSPHATASE 84 U/L (45-117); BILIRUBIN,TOTAL 0.3 mg/dL (0.2-1.0); CREATININE 2.69 mg/dL (0.7-1.3); TOTAL PROTEIN 6.8 g/dL (6.4-8.2)
[2019-11-14] MEDS: ACETAMINOPHEN 650 MG/20.3 ML UDC PO PRN (07:38)
[2019-11-14 07:51] VITALS: BP 106/67
[2019-11-14] MEDS: ONDANSETRON 2MG/ML, 2ML IVPush PRN ×3 (08:42→21:21)
[2019-11-14] MEDS: HYDROmorphone 2 MG/ML, 1ML IV PRN ×4 (08:43→21:43)
[2019-11-14] MEDS: INSULIN LISPRO 100 UNITS/ML, PEN SQ-INSULIN SCH ×2 (09:00→21:00)
[2019-11-14] MEDS: PANTOPRAZOLE 40 MG IV IVPush SCH (09:00)
[2019-11-14] MEDS: SODIUM CHLORIDE FLUSH 10ML SYR IVF SCH ×2 (09:00→21:40)
[2019-11-14] MEDS ORDERED: CATHFLO-ALTEPLASE 2 MG/2 ML CATHFLUSH ONE ×2 (09:30→11:00)
[2019-11-14] MEDS: SEVELAMER 2.4 GM POWD.PACK JT SCH ×3 (09:41→17:40)
[2019-11-14] MEDS: INSULIN GLARGINE 100 UNITS/ML, PEN SQ-INSULIN SCH ×2 (09:42→21:31)
[2019-11-14] MEDS: GABAPENTIN 250 MG/5 ML ORAL SOL PO SCH ×3 (09:43→21:33)
[2019-11-14] MEDS: BUPROPION 100 MG TABLET PO SCH ×2 (09:43→12:12)
[2019-11-14] MEDS: DOCUSATE 50 MG/5 ML, 10ML UDC PO SCH ×2 (09:43→21:36)
[2019-11-14] MEDS: MIDODRINE 5 MG TABLET PO SCH ×3 (09:44→21:35)
[2019-11-14] MEDS: MAGNESIUM OXIDE 400 MG TABLET PO SCH (09:44)
[2019-11-14] MEDS: DULOXETINE 30 MG CAPSULE.DR PO SCH (09:44)
[2019-11-14] MEDS: DARBEPOETIN 25 MCG/ML SQ SCH (10:00)
[2019-11-14] MEDS: DARBEPOETIN 100 MCG/ML SQ SCH (10:01)
[2019-11-14] MEDS ORDERED: OXYcodone IR 5MG TABLET PO PRN (12:30)
[2019-11-14 15:21] VITALS: BP 99/65
[2019-11-14 19:49] VITALS: BP 108/74
[2019-11-14] MEDS: METHYLNALTREXONE 12 MG/0.6 ML SYR SQ SCH (22:41)
[2019-11-15] MEDS: OXYcodone 5 MG/5 ML ORAL.SOL UDC PO PRN ×4 (03:55→19:54)
[2019-11-15 05:00] VITALS: BP 111/72
[2019-11-15 05:42] LABS: ANION GAP 5 mmol/L (5-15); CALCIUM 9.6 mg/dL (8.5-10.1); CHLORIDE 101 mmol/L (98-107); CREATININE 1.76 mg/dL (0.7-1.3)
[2019-11-15] MEDS: HEPARIN 5,000 UNITS/ML, 1ML SQ SCH ×3 (05:57→21:47)
[2019-11-15 07:32] VITALS: BP 115/76
[2019-11-15] MEDS: INSULIN LISPRO 100 UNITS/ML, PEN SQ-INSULIN SCH ×2 (08:52→21:00)
[2019-11-15] MEDS: MIDODRINE 5 MG TABLET PO SCH ×3 (09:01→21:50)
[2019-11-15] MEDS: SEVELAMER 2.4 GM POWD.PACK JT SCH ×3 (09:02→17:25)
[2019-11-15] MEDS: PANTOPRAZOLE 40 MG IV IVPush SCH (09:03)
[2019-11-15] MEDS: SODIUM CHLORIDE FLUSH 10ML SYR IVF SCH ×2 (09:03→22:04)
[2019-11-15] MEDS: ONDANSETRON 2MG/ML, 2ML IVPush PRN ×2 (09:03→17:27)
[2019-11-15] MEDS: DOCUSATE 50 MG/5 ML, 10ML UDC PO SCH ×2 (09:03→21:45)
[2019-11-15] MEDS: BUPROPION 100 MG TABLET PO SCH ×2 (09:03→12:05)
[2019-11-15] MEDS: INSULIN GLARGINE 100 UNITS/ML, PEN SQ-INSULIN SCH ×2 (09:04→21:54)
[2019-11-15] MEDS: GABAPENTIN 250 MG/5 ML ORAL SOL PO SCH ×3 (09:04→21:47)
[2019-11-15] MEDS: DULOXETINE 30 MG CAPSULE.DR PO SCH (09:04)
[2019-11-15] MEDS: HYDROmorphone 2 MG/ML, 1ML IV PRN ×3 (09:04→17:27)
[2019-11-15] MEDS: MAGNESIUM OXIDE 400 MG TABLET PO SCH (09:05)
[2019-11-15] MEDS: FENTANYL REMOVE PATCH NOTE XX SCH (11:00)
[2019-11-15] MEDS: HYDROmorphone 2 MG/ML, 1ML IVPush PRN (11:01)
[2019-11-15] MEDS: FENTANYL 100 MCG PATCH TD SCH (12:04)
[2019-11-15 14:58] VITALS: BP 118/78
--- NOTE | 2019-11-15 15:34 | NUR ---
Recommend continued: - REGULAR/THINS - 1:1 assist - Straws ok - Encourage patient to self feed - Alternate solids/liquids Addendum: 11/15/19 at [address] Amended: Links added.
[2019-11-15 20:14] VITALS: BP 104/68
[2019-11-15] MEDS: METHYLNALTREXONE 12 MG/0.6 ML SYR SQ SCH (21:50)
[2019-11-16] MEDS: LORazepam 1MG TABLET PO PRN ×2 (00:20→21:29)
[2019-11-16] MEDS: OXYcodone 5 MG/5 ML ORAL.SOL UDC PO PRN ×4 (00:20→21:10)
[2019-11-16 01:24] VITALS: BP 103/66
[2019-11-16] MEDS: HEPARIN 5,000 UNITS/ML, 1ML SQ SCH ×3 (05:59→21:10)
[2019-11-16 06:10] LABS: ANION GAP 6 mmol/L (5-15); CALCIUM 9.8 mg/dL (8.5-10.1); CHLORIDE 102 mmol/L (98-107); CREATININE 2.21 mg/dL (0.7-1.3); IRON LEVEL 45 mcg/dL (65-175)
[2019-11-16 06:18] LABS: % IRON SATURATION 22 % (20-55); TOTAL IRON BINDING CAPACITY 206 mcg/dL (250-450)
[2019-11-16 06:21] LABS: MEAN CORPUSCULAR HEMOGLOBIN 28.9 pg (27.5-34.5); MEAN CORPUSCULAR HGB CONC 32.5 g/dL (33.2-36.2); MEAN CORPUSCULAR VOLUME 88.8 fL (81-97); MEAN PLATELET VOLUME 7.2 fL (7.4-10.4); PLATELET COUNT 230 x10^3/uL (130-400); RED BLOOD COUNT 2.53 x10^6/uL (4.38-5.82); RED CELL DISTRIBUTION WIDTH 16.3 % (9.4-14.8)
[2019-11-16 06:37] LABS: BASOPHILS # (AUTO) 0.02 x10^3/uL (0-0.1); BASOPHILS % (AUTO) 0 % (0-1); EOSINOPHILS # (AUTO) 0.44 x10^3/uL (0-0.4); EOSINOPHILS % (AUTO) 6 % (1-7); LYMPHOCYTES # (AUTO) 1.41 x10^3/uL (1-3.4); LYMPHOCYTES % (AUTO) 20 % (22-44); MD SCAN; MONOCYTES % (AUTO) 7 % (2-9); NEUTROPHILS % (AUTO) 66 % (42-75)
[2019-11-16] MEDS: INSULIN LISPRO 100 UNITS/ML, PEN SQ-INSULIN SCH ×2 (08:11→21:00)
[2019-11-16 08:30] VITALS: BP 108/70
[2019-11-16] MEDS: SEVELAMER 2.4 GM POWD.PACK JT SCH ×3 (08:37→17:25)
[2019-11-16] MEDS: BUPROPION 100 MG TABLET PO SCH ×2 (08:38→13:41)
[2019-11-16] MEDS: PANTOPRAZOLE 40 MG IV IVPush SCH (08:39)
[2019-11-16] MEDS: INSULIN GLARGINE 100 UNITS/ML, PEN SQ-INSULIN SCH ×2 (08:39→21:09)
[2019-11-16] MEDS: SODIUM CHLORIDE FLUSH 10ML SYR IVF SCH ×2 (08:39→21:11)
[2019-11-16] MEDS: MIDODRINE 5 MG TABLET PO SCH ×3 (08:40→21:11)
[2019-11-16] MEDS: DULOXETINE 30 MG CAPSULE.DR PO SCH (08:41)
[2019-11-16] MEDS: MAGNESIUM OXIDE 400 MG TABLET PO SCH (08:41)
[2019-11-16] MEDS: GABAPENTIN 250 MG/5 ML ORAL SOL PO SCH ×3 (08:41→21:11)
[2019-11-16] MEDS: DOCUSATE 50 MG/5 ML, 10ML UDC PO SCH ×2 (08:42→21:10)
[2019-11-16 09:19] VITALS: BP 113/76
[2019-11-16] MEDS: HYDROmorphone 2 MG/ML, 1ML IV PRN ×2 (13:42→17:31)
[2019-11-16] MEDS: ONDANSETRON 2MG/ML, 2ML IVPush PRN ×2 (13:42→23:50)
[2019-11-16 14:14] VITALS: BP 115/74
[2019-11-16 17:23] VITALS: BP 116/76
[2019-11-16 19:27] VITALS: BP 105/70
[2019-11-16] MEDS: METHYLNALTREXONE 12 MG/0.6 ML SYR SQ SCH (21:10)
[2019-11-17] MEDS: HYDROmorphone 2 MG/ML, 1ML IV PRN ×2 (00:06→10:23)
[2019-11-17] MEDS: OXYcodone 5 MG/5 ML ORAL.SOL UDC PO PRN ×5 (01:53→22:51)
[2019-11-17] MEDS: HEPARIN 5,000 UNITS/ML, 1ML SQ SCH ×3 (06:15→22:49)
[2019-11-17 08:12] VITALS: BP 124/76
[2019-11-17] MEDS: INSULIN LISPRO 100 UNITS/ML, PEN SQ-INSULIN SCH ×2 (09:00→23:49)
[2019-11-17] MEDS: MIDODRINE 5 MG TABLET PO SCH ×3 (09:00→22:48)
[2019-11-17] MEDS: ONDANSETRON 2MG/ML, 2ML IVPush PRN (09:00)
[2019-11-17] MEDS: HYDROmorphone 2 MG/ML, 1ML IVPush PRN ×4 (09:29→17:13)
[2019-11-17] MEDS: SODIUM CHLORIDE FLUSH 10ML SYR IVF SCH ×2 (09:29→22:44)
[2019-11-17] MEDS: BUPROPION 100 MG TABLET PO SCH ×2 (09:29→13:03)
[2019-11-17] MEDS: SEVELAMER 2.4 GM POWD.PACK JT SCH ×3 (09:29→17:12)
[2019-11-17 09:40] VITALS: BP 135/84
[2019-11-17] MEDS: DOCUSATE 50 MG/5 ML, 10ML UDC PO SCH ×2 (09:49→22:50)
[2019-11-17] MEDS: DULOXETINE 30 MG CAPSULE.DR PO SCH (09:49)
[2019-11-17] MEDS: PANTOPRAZOLE 40 MG IV IVPush SCH (09:49)
[2019-11-17] MEDS: GABAPENTIN 250 MG/5 ML ORAL SOL PO SCH ×3 (09:49→22:44)
[2019-11-17] MEDS: MAGNESIUM OXIDE 400 MG TABLET PO SCH (09:49)
[2019-11-17] MEDS: INSULIN GLARGINE 100 UNITS/ML, PEN SQ-INSULIN SCH ×2 (09:50→23:49)
[2019-11-17 14:00] VITALS: BP 116/71
[2019-11-17 21:50] VITALS: BP 112/70
[2019-11-17] MEDS: METHYLNALTREXONE 12 MG/0.6 ML SYR SQ SCH (22:50)
[2019-11-17] MEDS: ACETAMINOPHEN 650 MG/20.3 ML UDC PO PRN (22:50)
[2019-11-17] MEDS: LORazepam 1MG TABLET PO PRN (23:00)
[2019-11-18 03:50] VITALS: BP 133/79
[2019-11-18] MEDS: OXYcodone 5 MG/5 ML ORAL.SOL UDC PO PRN ×3 (03:51→21:58)
[2019-11-18] MEDS: HEPARIN 5,000 UNITS/ML, 1ML SQ SCH ×3 (06:26→21:59)
[2019-11-18] MEDS: SEVELAMER 2.4 GM POWD.PACK JT SCH ×3 (08:11→17:35)
[2019-11-18] MEDS: BUPROPION 100 MG TABLET PO SCH ×2 (08:11→13:40)
[2019-11-18] MEDS: PANTOPRAZOLE 40 MG IV IVPush SCH (08:12)
[2019-11-18] MEDS: SODIUM CHLORIDE FLUSH 10ML SYR IVF SCH ×2 (08:12→21:58)
[2019-11-18] MEDS: DULOXETINE 30 MG CAPSULE.DR PO SCH (08:13)
[2019-11-18] MEDS: DOCUSATE 50 MG/5 ML, 10ML UDC PO SCH ×2 (08:13→21:58)
[2019-11-18] MEDS: MAGNESIUM OXIDE 400 MG TABLET PO SCH (08:13)
[2019-11-18] MEDS: GABAPENTIN 250 MG/5 ML ORAL SOL PO SCH ×3 (08:14→21:59)
[2019-11-18] MEDS: ONDANSETRON 2MG/ML, 2ML IVPush PRN (08:14)
[2019-11-18] MEDS: INSULIN GLARGINE 100 UNITS/ML, PEN SQ-INSULIN SCH (08:22)
[2019-11-18 08:31] VITALS: BP 117/75
[2019-11-18] MEDS: MIDODRINE 5 MG TABLET PO SCH ×4 (08:31→21:59)
[2019-11-18] MEDS: HYDROmorphone 2 MG/ML, 1ML IV PRN ×3 (08:33→17:35)
[2019-11-18] MEDS: INSULIN LISPRO 100 UNITS/ML, PEN SQ-INSULIN SCH ×2 (09:00→21:00)
[2019-11-18] MEDS: FENTANYL 100 MCG PATCH TD SCH (13:50)
[2019-11-18] MEDS: FENTANYL REMOVE PATCH NOTE XX SCH (13:50)
[2019-11-18 15:00] VITALS: BP 124/72
[2019-11-18 21:54] VITALS: BP 129/71
[2019-11-18] MEDS: ACETAMINOPHEN 650 MG/20.3 ML UDC PO PRN (21:58)
[2019-11-18] MEDS: METHYLNALTREXONE 12 MG/0.6 ML SYR SQ SCH (21:59)
[2019-11-18] MEDS: LORazepam 1MG TABLET PO PRN (21:59)
[2019-11-18] MEDS: BACLOFEN 10 MG TABLET PO PRN (22:00)
[2019-11-18] MEDS: SIMETHICONE 80 MG CHEW TAB PO PRN (22:00)
[2019-11-19] MEDS: INSULIN GLARGINE 100 UNITS/ML, PEN SQ-INSULIN SCH ×3 (00:12→22:06)
[2019-11-19] MEDS: OXYcodone 5 MG/5 ML ORAL.SOL UDC PO PRN ×4 (03:11→23:25)
[2019-11-19] MEDS: TRAZODONE 100MG TABLET PO PRN (03:12)
[2019-11-19 03:24] VITALS: BP 113/72
[2019-11-19 06:00] LABS: BASOPHILS # (AUTO) 0.02 x10^3/uL (0-0.1); BASOPHILS % (AUTO) 0 % (0-1); EOSINOPHILS # (AUTO) 0.84 x10^3/uL (0-0.4); EOSINOPHILS % (AUTO) 9 % (1-7); LYMPHOCYTES % (AUTO) 17 % (22-44); MD NO; MEAN CORPUSCULAR HEMOGLOBIN 28.6 pg (27.5-34.5); MEAN CORPUSCULAR HGB CONC 32.3 g/dL (33.2-36.2); MEAN CORPUSCULAR VOLUME 88.4 fL (81-97); MEAN PLATELET VOLUME 6.9 fL (7.4-10.4); MONOCYTES % (AUTO) 8 % (2-9); NEUTROPHILS # (AUTO) 6.14 x10^3/uL (1.8-6.8); NEUTROPHILS % (AUTO) 66 % (42-75); PLATELET COUNT 258 x10^3/uL (130-400); RED CELL DISTRIBUTION WIDTH 16.4 % (9.4-14.8)
[2019-11-19 06:04] LABS: ANION GAP 6 mmol/L (5-15); CALCIUM 9.5 mg/dL (8.5-10.1); CHLORIDE 101 mmol/L (98-107)
[2019-11-19 06:06] LABS: CREATININE 1.87 mg/dL (0.7-1.3)
[2019-11-19] MEDS: HEPARIN 5,000 UNITS/ML, 1ML SQ SCH ×3 (06:21→22:06)
[2019-11-19] MEDS: BUPROPION 100 MG TABLET PO SCH ×2 (07:22→12:36)
[2019-11-19] MEDS: INSULIN LISPRO 100 UNITS/ML, PEN SQ-INSULIN SCH ×2 (09:00→21:00)
[2019-11-19] MEDS: MIDODRINE 5 MG TABLET PO SCH ×3 (09:00→21:00)
[2019-11-19 09:49] VITALS: BP 119/74
[2019-11-19] MEDS: HYDROmorphone 2 MG/ML, 1ML IV PRN ×3 (09:56→18:15)
[2019-11-19] MEDS: ONDANSETRON 2MG/ML, 2ML IVPush PRN (09:56)
[2019-11-19] MEDS: SODIUM CHLORIDE FLUSH 10ML SYR IVF SCH ×2 (09:57→22:13)
[2019-11-19] MEDS: PANTOPRAZOLE 40 MG IV IVPush SCH (09:57)
[2019-11-19] MEDS: SEVELAMER 2.4 GM POWD.PACK JT SCH ×3 (09:57→18:15)
[2019-11-19] MEDS: DULOXETINE 30 MG CAPSULE.DR PO SCH (09:57)
[2019-11-19] MEDS: MAGNESIUM OXIDE 400 MG TABLET PO SCH (09:57)
[2019-11-19] MEDS: GABAPENTIN 250 MG/5 ML ORAL SOL PO SCH ×3 (09:57→22:13)
[2019-11-19] MEDS: DOCUSATE 50 MG/5 ML, 10ML UDC PO SCH ×2 (09:57→22:10)
[2019-11-19] MEDS: LACTULOSE 20 GM/30 ML UDC PO PRN (12:35)
[2019-11-19] MEDS: SIMETHICONE 80 MG CHEW TAB PO PRN (12:36)
[2019-11-19 15:06] VITALS: BP 117/78
[2019-11-19] MEDS ORDERED: BUPROPION 100 MG TABLET PO SCH (16:30)
[2019-11-19 20:00] VITALS: BP 116/71
[2019-11-19] MEDS: METHYLNALTREXONE 12 MG/0.6 ML SYR SQ SCH (22:08)
[2019-11-20 03:55] VITALS: BP 122/79
[2019-11-20] MEDS: HYDROmorphone 2 MG/ML, 1ML IV PRN ×4 (05:24→17:09)
[2019-11-20] MEDS: HEPARIN 5,000 UNITS/ML, 1ML SQ SCH ×3 (05:24→22:29)
[2019-11-20 05:33] LABS: BASOPHILS # (AUTO) 0.03 x10^3/uL (0-0.1); BASOPHILS % (AUTO) 0 % (0-1); EOSINOPHILS # (AUTO) 0.62 x10^3/uL (0-0.4); EOSINOPHILS % (AUTO) 7 % (1-7); LYMPHOCYTES # (AUTO) 1.24 x10^3/uL (1-3.4); LYMPHOCYTES % (AUTO) 13 % (22-44); MD NO; MEAN CORPUSCULAR HEMOGLOBIN 28.6 pg (27.5-34.5); MEAN CORPUSCULAR HGB CONC 32.3 g/dL (33.2-36.2); MEAN CORPUSCULAR VOLUME 88.7 fL (81-97); MEAN PLATELET VOLUME 7.1 fL (7.4-10.4); MONOCYTES # (AUTO) 0.74 x10^3/uL (0.2-0.8); MONOCYTES % (AUTO) 8 % (2-9); NEUTROPHILS # (AUTO) 6.73 x10^3/uL (1.8-6.8); NEUTROPHILS % (AUTO) 72 % (42-75); PLATELET COUNT 265 x10^3/uL (130-400); RED BLOOD COUNT 2.78 x10^6/uL (4.38-5.82); RED CELL DISTRIBUTION WIDTH 16.2 % (9.4-14.8)
[2019-11-20 05:40] LABS: % IRON SATURATION 13 % (20-55); ALBUMIN 2.1 g/dL (3.4-5.0); ANION GAP 9 mmol/L (5-15); CALCIUM 10.1 mg/dL (8.5-10.1); CHLORIDE 102 mmol/L (98-107); CREATININE 2.27 mg/dL (0.7-1.3); IRON LEVEL 30 mcg/dL (65-175); TOTAL IRON BINDING CAPACITY 231 mcg/dL (250-450)
[2019-11-20 05:59] LABS: HCT (SEDRATE) 24.6 % (39.2-51.8)
[2019-11-20 06:19] LABS: SEDIMENTATION RATE > 120 mm/hr (0-10)
[2019-11-20] MEDS: INSULIN LISPRO 100 UNITS/ML, PEN SQ-INSULIN SCH ×2 (08:05→21:00)
[2019-11-20 08:26] VITALS: BP 124/67
[2019-11-20] MEDS: SEVELAMER 2.4 GM POWD.PACK JT SCH ×3 (08:27→17:03)
[2019-11-20] MEDS: POLYETHYLENE GLYCOL 17 GM PACKET PO PRN (08:29)
[2019-11-20] MEDS: INSULIN GLARGINE 100 UNITS/ML, PEN SQ-INSULIN SCH ×2 (08:29→21:48)
[2019-11-20] MEDS: SODIUM CHLORIDE FLUSH 10ML SYR IVF SCH ×2 (08:29→21:45)
[2019-11-20] MEDS: DOCUSATE 50 MG/5 ML, 10ML UDC PO SCH ×2 (08:30→21:44)
[2019-11-20] MEDS: PANTOPRAZOLE 40 MG IV IVPush SCH (08:30)
[2019-11-20] MEDS: GABAPENTIN 250 MG/5 ML ORAL SOL PO SCH ×3 (08:31→21:45)
[2019-11-20] MEDS: MAGNESIUM OXIDE 400 MG TABLET PO SCH (08:31)
[2019-11-20] MEDS: BUPROPION 100 MG TABLET PO SCH ×2 (08:32→12:40)
[2019-11-20] MEDS: SIMETHICONE 80 MG CHEW TAB PO PRN (08:33)
[2019-11-20] MEDS: MIDODRINE 5 MG TABLET PO SCH ×3 (08:33→21:00)
[2019-11-20] MEDS: DULOXETINE 30 MG CAPSULE.DR PO SCH (08:34)
[2019-11-20] MEDS: OXYcodone 5 MG/5 ML ORAL.SOL UDC PO PRN ×3 (09:31→22:28)
[2019-11-20] MEDS: ONDANSETRON 2MG/ML, 2ML IVPush PRN ×2 (09:31→17:08)
[2019-11-20] MEDS: HYDROmorphone 2 MG/ML, 1ML IVPush PRN (10:47)
[2019-11-20] MEDS: IRON SUCROSE COMPLEX 100MG/5ML IV SCH (12:40)
[2019-11-20 15:19] VITALS: BP 115/71
[2019-11-20 21:38] VITALS: BP 111/74
[2019-11-20] MEDS: METHYLNALTREXONE 12 MG/0.6 ML SYR SQ SCH (22:30)
[2019-11-21] MEDS: OXYcodone 5 MG/5 ML ORAL.SOL UDC PO PRN ×4 (04:16→21:15)
[2019-11-21] MEDS: HEPARIN 5,000 UNITS/ML, 1ML SQ SCH ×3 (06:17→21:16)
[2019-11-21 06:25] VITALS: BP 106/69
[2019-11-21 06:46] LABS: MEAN CORPUSCULAR HEMOGLOBIN 28.2 pg (27.5-34.5); MEAN CORPUSCULAR HGB CONC 32.2 g/dL (33.2-36.2); MEAN CORPUSCULAR VOLUME 87.7 fL (81-97); MEAN PLATELET VOLUME 7.3 fL (7.4-10.4); PLATELET COUNT 239 x10^3/uL (130-400); RED BLOOD COUNT 2.51 x10^6/uL (4.38-5.82); RED CELL DISTRIBUTION WIDTH 16.3 % (9.4-14.8)
[2019-11-21 06:52] LABS: ALANINE AMINOTRANSFERASE 18 U/L (12-78); ANION GAP 7 mmol/L (5-15); CALCIUM 9.8 mg/dL (8.5-10.1); CHLORIDE 100 mmol/L (98-107); CREATININE 2.57 mg/dL (0.7-1.3)
[2019-11-21 06:54] LABS: ALKALINE PHOSPHATASE 103 U/L (45-117); BILIRUBIN,TOTAL 0.2 mg/dL (0.2-1.0); TOTAL PROTEIN 6.5 g/dL (6.4-8.2)
[2019-11-21 07:13] LABS: MD YES
[2019-11-21 07:22] LABS: BASOS#(MANUAL) 0.08 x10^3/uL (0-0.1); BASOS% (MANUAL) 1 % (0-1); EOS#(MANUAL) 0.73 x10^3/uL (0.0-0.4); EOS% (MANUAL) 9 % (1-7); LYMPH#(MANUAL) 1.13 x10^3/uL (1-3.4); LYMPHS% (MANUAL) 14 % (22-44); MONOS#(MANUAL) 0.65 x10^3/uL (0.3-2.7); MONOS% (MANUAL) 8 % (2-9); SEG#(MANUAL) 5.51 x10^3/uL (1.8-6.8); SEGS% (MANUAL) 68 % (42-75)
[2019-11-21 07:24] LABS: <PLATELET ESTIMATE> ADEQUATE; <PLT MORPHOLOGY> NORMAL PLT MORPH; ANISOCYTOSIS 1+
[2019-11-21] MEDS: INSULIN LISPRO 100 UNITS/ML, PEN SQ-INSULIN SCH ×2 (08:27→21:00)
[2019-11-21 08:56] VITALS: BP 99/63
[2019-11-21] MEDS ORDERED: DARBEPOETIN 25 MCG/ML SQ SCH (09:00)
[2019-11-21] MEDS: SEVELAMER 2.4 GM POWD.PACK JT SCH ×3 (09:08→18:15)
[2019-11-21] MEDS: BUPROPION 100 MG TABLET PO SCH ×2 (09:11→12:14)
[2019-11-21] MEDS: DARBEPOETIN 100 MCG/ML SQ SCH (09:12)
[2019-11-21] MEDS: DARBEPOETIN 25 MCG/ML SQ SCH (09:12)
[2019-11-21] MEDS: IRON SUCROSE COMPLEX 100MG/5ML IV SCH (09:13)
[2019-11-21] MEDS: DOCUSATE 50 MG/5 ML, 10ML UDC PO SCH ×2 (09:13→21:36)
[2019-11-21] MEDS: PANTOPRAZOLE 40 MG IV IVPush SCH (09:13)
[2019-11-21] MEDS: DULOXETINE 30 MG CAPSULE.DR PO SCH (09:13)
[2019-11-21] MEDS: SODIUM CHLORIDE FLUSH 10ML SYR IVF SCH ×2 (09:13→21:14)
[2019-11-21] MEDS: MAGNESIUM OXIDE 400 MG TABLET PO SCH (09:14)
[2019-11-21] MEDS: GABAPENTIN 250 MG/5 ML ORAL SOL PO SCH ×3 (09:16→21:15)
[2019-11-21] MEDS: ONDANSETRON 2MG/ML, 2ML IVPush PRN ×2 (09:18→18:16)
[2019-11-21] MEDS: MIDODRINE 5 MG TABLET PO SCH ×3 (09:18→21:00)
[2019-11-21] MEDS: HYDROmorphone 2 MG/ML, 1ML IV PRN ×4 (09:37→23:32)
[2019-11-21] MEDS: INSULIN GLARGINE 100 UNITS/ML, PEN SQ-INSULIN SCH ×2 (09:51→21:28)
[2019-11-21] MEDS: FENTANYL REMOVE PATCH NOTE XX SCH (10:10)
[2019-11-21] MEDS: FENTANYL 100 MCG PATCH TD SCH (10:25)
[2019-11-21 15:22] VITALS: BP 90/56
[2019-11-21] MEDS: METHYLNALTREXONE 12 MG/0.6 ML SYR SQ SCH (23:31)
[2019-11-22 01:26] LABS: BASOPHILS # (AUTO) 0.03 x10^3/uL (0-0.1); BASOPHILS % (AUTO) 0 % (0-1); EOSINOPHILS # (AUTO) 1.03 x10^3/uL (0-0.4); EOSINOPHILS % (AUTO) 11 % (1-7); LYMPHOCYTES # (AUTO) 1.35 x10^3/uL (1-3.4); LYMPHOCYTES % (AUTO) 14 % (22-44); MD NO; MEAN CORPUSCULAR HEMOGLOBIN 28.8 pg (27.5-34.5); MEAN CORPUSCULAR HGB CONC 32.5 g/dL (33.2-36.2); MEAN CORPUSCULAR VOLUME 88.6 fL (81-97); MEAN PLATELET VOLUME 7.1 fL (7.4-10.4); MONOCYTES # (AUTO) 0.71 x10^3/uL (0.2-0.8); MONOCYTES % (AUTO) 8 % (2-9); NEUTROPHILS % (AUTO) 67 % (42-75); PLATELET COUNT 273 x10^3/uL (130-400); RED BLOOD COUNT 2.59 x10^6/uL (4.38-5.82)
[2019-11-22 01:35] LABS: ANION GAP 6 mmol/L (5-15); CALCIUM 9.5 mg/dL (8.5-10.1); CHLORIDE 104 mmol/L (98-107); CREATININE 1.68 mg/dL (0.7-1.3)
[2019-11-22 02:00] VITALS: BP 98/60
[2019-11-22] MEDS: OXYcodone 5 MG/5 ML ORAL.SOL UDC PO PRN ×4 (05:20→21:47)
[2019-11-22] MEDS: HEPARIN 5,000 UNITS/ML, 1ML SQ SCH ×3 (05:20→21:48)
[2019-11-22 07:45] VITALS: BP 95/59
[2019-11-22] MEDS: MAGNESIUM OXIDE 400 MG TABLET PO SCH (08:42)
[2019-11-22] MEDS: SEVELAMER 2.4 GM POWD.PACK JT SCH ×3 (08:42→16:46)
[2019-11-22] MEDS: BUPROPION 100 MG TABLET PO SCH ×2 (08:42→12:29)
[2019-11-22] MEDS: DULOXETINE 30 MG CAPSULE.DR PO SCH (08:43)
[2019-11-22] MEDS: PANTOPRAZOLE 40 MG IV IVPush SCH (08:43)
[2019-11-22] MEDS: SODIUM CHLORIDE FLUSH 10ML SYR IVF SCH ×2 (08:43→21:48)
[2019-11-22] MEDS: IRON SUCROSE COMPLEX 100MG/5ML IV SCH (08:43)
[2019-11-22] MEDS: DOCUSATE 50 MG/5 ML, 10ML UDC PO SCH ×2 (08:43→21:47)
[2019-11-22] MEDS: MIDODRINE 5 MG TABLET PO SCH ×3 (08:43→21:48)
[2019-11-22] MEDS: HYDROmorphone 2 MG/ML, 1ML IV PRN ×3 (08:44→16:58)
[2019-11-22] MEDS: INSULIN LISPRO 100 UNITS/ML, PEN SQ-INSULIN SCH ×2 (08:44→21:00)
[2019-11-22] MEDS: GABAPENTIN 250 MG/5 ML ORAL SOL PO SCH ×3 (08:45→21:48)
[2019-11-22] MEDS: INSULIN GLARGINE 100 UNITS/ML, PEN SQ-INSULIN SCH ×2 (08:45→23:04)
[2019-11-22] MEDS: HYDROmorphone 2 MG/ML, 1ML IVPush PRN (11:07)
[2019-11-22] MEDS: ONDANSETRON 2MG/ML, 2ML IVPush PRN (12:29)
[2019-11-22 13:48] VITALS: BP 104/64
[2019-11-22 16:39] VITALS: BP 118/72
[2019-11-22 19:39] VITALS: BP 113/74
[2019-11-22] MEDS: ACETAMINOPHEN 650 MG/20.3 ML UDC PO PRN (21:47)
[2019-11-22] MEDS: METHYLNALTREXONE 12 MG/0.6 ML SYR SQ SCH (21:48)
[2019-11-22] MEDS: SIMETHICONE 80 MG CHEW TAB PO PRN (23:42)
[2019-11-23 00:33] VITALS: BP 116/72
[2019-11-23] MEDS: OXYcodone 5 MG/5 ML ORAL.SOL UDC PO PRN ×5 (02:01→22:04)
[2019-11-23] MEDS: LORazepam 1MG TABLET PO PRN (02:35)
[2019-11-23] MEDS: HEPARIN 5,000 UNITS/ML, 1ML SQ SCH ×3 (06:39→21:54)
[2019-11-23 07:48] VITALS: BP 111/74
[2019-11-23] MEDS: ONDANSETRON 2MG/ML, 2ML IVPush PRN (08:00)
[2019-11-23] MEDS: SODIUM CHLORIDE FLUSH 10ML SYR IVF SCH ×2 (08:02→21:56)
[2019-11-23] MEDS: HYDROmorphone 2 MG/ML, 1ML IV PRN ×3 (08:02→18:17)
[2019-11-23] MEDS: BUPROPION 100 MG TABLET PO SCH ×2 (08:04→12:58)
[2019-11-23] MEDS: SEVELAMER 2.4 GM POWD.PACK JT SCH ×3 (08:28→18:17)
[2019-11-23] MEDS: INSULIN GLARGINE 100 UNITS/ML, PEN SQ-INSULIN SCH ×2 (08:29→22:21)
[2019-11-23] MEDS: INSULIN LISPRO 100 UNITS/ML, PEN SQ-INSULIN SCH ×2 (08:29→22:21)
[2019-11-23] MEDS: DOCUSATE 50 MG/5 ML, 10ML UDC PO SCH ×2 (08:48→21:51)
[2019-11-23] MEDS: MIDODRINE 5 MG TABLET PO SCH ×3 (09:00→21:53)
[2019-11-23 10:00] VITALS: BP 111/74
[2019-11-23] MEDS: GABAPENTIN 250 MG/5 ML ORAL SOL PO SCH ×3 (10:00→21:51)
[2019-11-23] MEDS: DULOXETINE 30 MG CAPSULE.DR PO SCH (10:00)
[2019-11-23] MEDS: MAGNESIUM OXIDE 400 MG TABLET PO SCH (10:00)
[2019-11-23] MEDS: IRON SUCROSE COMPLEX 100MG/5ML IV SCH (10:32)
[2019-11-23] MEDS: PANTOPRAZOLE 40 MG IV IVPush SCH (10:32)
[2019-11-23 14:04] VITALS: BP 114/75
[2019-11-23 16:33] VITALS: BP 107/72
[2019-11-23 20:20] VITALS: BP 117/76
[2019-11-23] MEDS: SIMETHICONE 80 MG CHEW TAB PO PRN (21:54)
[2019-11-23] MEDS: METHYLNALTREXONE 12 MG/0.6 ML SYR SQ SCH (21:54)
[2019-11-23] MEDS: ACETAMINOPHEN 650 MG/20.3 ML UDC PO PRN ×2 (21:54→22:04)
[2019-11-24] MEDS: OXYcodone 5 MG/5 ML ORAL.SOL UDC PO PRN ×3 (01:55→22:22)
[2019-11-24] MEDS: ACETAMINOPHEN 650 MG/20.3 ML UDC PO PRN (01:55)
[2019-11-24] MEDS: LORazepam 1MG TABLET PO PRN (02:29)
[2019-11-24] MEDS: DIPHENHYDRAMINE 50 MG/ML, 1ML IVPush PRN (02:29)
[2019-11-24 02:30] VITALS: BP 115/77
[2019-11-24] MEDS: HEPARIN 5,000 UNITS/ML, 1ML SQ SCH ×3 (05:59→22:21)
[2019-11-24 06:31] LABS: BASOPHILS # (AUTO) 0.05 x10^3/uL (0-0.1); BASOPHILS % (AUTO) 1 % (0-1); EOSINOPHILS # (AUTO) 0.59 x10^3/uL (0-0.4); EOSINOPHILS % (AUTO) 6 % (1-7); LYMPHOCYTES # (AUTO) 1.31 x10^3/uL (1-3.4); LYMPHOCYTES % (AUTO) 14 % (22-44); MD NO; MEAN CORPUSCULAR HEMOGLOBIN 28.9 pg (27.5-34.5); MEAN CORPUSCULAR HGB CONC 32.2 g/dL (33.2-36.2); MEAN CORPUSCULAR VOLUME 89.5 fL (81-97); MEAN PLATELET VOLUME 6.9 fL (7.4-10.4); MONOCYTES # (AUTO) 0.73 x10^3/uL (0.2-0.8); MONOCYTES % (AUTO) 8 % (2-9); NEUTROPHILS # (AUTO) 6.53 x10^3/uL (1.8-6.8); NEUTROPHILS % (AUTO) 71 % (42-75); PLATELET COUNT 261 x10^3/uL (130-400); RED BLOOD COUNT 2.74 x10^6/uL (4.38-5.82); RED CELL DISTRIBUTION WIDTH 16.7 % (9.4-14.8)
[2019-11-24 06:43] LABS: ANION GAP 6 mmol/L (5-15); CALCIUM 9.6 mg/dL (8.5-10.1); CHLORIDE 102 mmol/L (98-107); CREATININE 1.85 mg/dL (0.7-1.3)
[2019-11-24 08:54] VITALS: BP 115/76
[2019-11-24] MEDS: SODIUM CHLORIDE FLUSH 10ML SYR IVF SCH ×2 (08:58→22:21)
[2019-11-24] MEDS: ONDANSETRON 2MG/ML, 2ML IVPush PRN ×2 (08:58→17:53)
[2019-11-24] MEDS: SEVELAMER 2.4 GM POWD.PACK JT SCH ×3 (09:03→17:59)
[2019-11-24] MEDS: DOCUSATE 50 MG/5 ML, 10ML UDC PO SCH ×2 (09:04→22:19)
[2019-11-24] MEDS: BUPROPION 100 MG TABLET PO SCH ×2 (09:04→12:44)
[2019-11-24] MEDS: INSULIN GLARGINE 100 UNITS/ML, PEN SQ-INSULIN SCH ×2 (09:05→23:37)
[2019-11-24] MEDS: DULOXETINE 30 MG CAPSULE.DR PO SCH (09:06)
[2019-11-24] MEDS: IRON SUCROSE COMPLEX 100MG/5ML IV SCH (09:06)
[2019-11-24] MEDS: PANTOPRAZOLE 40 MG IV IVPush SCH (09:07)
[2019-11-24] MEDS: GABAPENTIN 250 MG/5 ML ORAL SOL PO SCH (09:07)
[2019-11-24] MEDS: MAGNESIUM OXIDE 400 MG TABLET PO SCH (09:08)
[2019-11-24] MEDS: HYDROmorphone 2 MG/ML, 1ML IV PRN ×3 (09:08→18:05)
[2019-11-24] MEDS: MIDODRINE 5 MG TABLET PO SCH ×3 (09:09→22:20)
[2019-11-24] MEDS: INSULIN LISPRO 100 UNITS/ML, PEN SQ-INSULIN SCH ×2 (09:09→23:37)
[2019-11-24] MEDS: FENTANYL 100 MCG PATCH TD SCH (10:48)
[2019-11-24] MEDS: HYDROmorphone 2 MG/ML, 1ML IVPush PRN (10:49)
[2019-11-24] MEDS: FENTANYL REMOVE PATCH NOTE XX SCH (10:52)
[2019-11-24] MEDS: TRAZODONE 100MG TABLET PO SCH ×2 (14:30→22:19)
[2019-11-24 15:48] VITALS: BP 114/72
[2019-11-24] MEDS: GABAPENTIN 100 MG CAPSULE PO SCH ×2 (15:49→22:19)
[2019-11-24] MEDS: ACETAMINOPHEN 500 MG TABLET PO SCH ×2 (15:50→22:20)
[2019-11-24] MEDS ORDERED: GABAPENTIN 100 MG CAPSULE PO SCH (16:00)
[2019-11-24 21:55] VITALS: BP 98/64
[2019-11-24] MEDS: SIMETHICONE 80 MG CHEW TAB PO PRN (22:21)
[2019-11-24] MEDS: METHYLNALTREXONE 12 MG/0.6 ML SYR SQ SCH (22:21)
[2019-11-25] MEDS: LORazepam 1MG TABLET PO PRN (01:39)
[2019-11-25 03:55] VITALS: BP 122/74
[2019-11-25 06:11] LABS: BASOPHILS # (AUTO) 0.05 x10^3/uL (0-0.1); BASOPHILS % (AUTO) 1 % (0-1); EOSINOPHILS # (AUTO) 0.45 x10^3/uL (0-0.4); EOSINOPHILS % (AUTO) 5 % (1-7); LYMPHOCYTES % (AUTO) 18 % (22-44); MD NO; MEAN CORPUSCULAR HEMOGLOBIN 29.1 pg (27.5-34.5); MEAN CORPUSCULAR HGB CONC 32.7 g/dL (33.2-36.2); MEAN CORPUSCULAR VOLUME 89.1 fL (81-97); MONOCYTES # (AUTO) 0.68 x10^3/uL (0.2-0.8); MONOCYTES % (AUTO) 8 % (2-9); NEUTROPHILS # (AUTO) 5.62 x10^3/uL (1.8-6.8); NEUTROPHILS % (AUTO) 68 % (42-75); PLATELET COUNT 247 x10^3/uL (130-400); RED BLOOD COUNT 2.58 x10^6/uL (4.38-5.82); RED CELL DISTRIBUTION WIDTH 16.8 % (9.4-14.8)
[2019-11-25 06:12] LABS: HCT (SEDRATE) 23.2 % (39.2-51.8)
[2019-11-25 06:19] LABS: ANION GAP 7 mmol/L (5-15); CALCIUM 9.6 mg/dL (8.5-10.1); CHLORIDE 102 mmol/L (98-107); CREATININE 2.39 mg/dL (0.7-1.3)
[2019-11-25 06:29] LABS: CREATININE CLEARANCE,URINE 7.1 (70.0-140.0)
[2019-11-25 07:07] LABS: SEDIMENTATION RATE > 120 mm/hr (0-10)
[2019-11-25] MEDS: HEPARIN 5,000 UNITS/ML, 1ML SQ SCH ×3 (07:42→23:58)
[2019-11-25] MEDS: OXYcodone 5 MG/5 ML ORAL.SOL UDC PO PRN ×4 (07:46→23:58)
[2019-11-25 08:00] VITALS: BP 115/74
[2019-11-25] MEDS: SEVELAMER 2.4 GM POWD.PACK JT SCH ×4 (08:00→20:51)
[2019-11-25] MEDS: SODIUM CHLORIDE FLUSH 10ML SYR IVF SCH ×2 (09:00→19:34)
[2019-11-25] MEDS: MIDODRINE 5 MG TABLET PO SCH ×3 (09:00→20:52)
[2019-11-25] MEDS: INSULIN LISPRO 100 UNITS/ML, PEN SQ-INSULIN SCH ×2 (09:00→21:00)
[2019-11-25] MEDS: PANTOPRAZOLE 40 MG IV IVPush SCH (09:29)
[2019-11-25] MEDS: DOCUSATE 50 MG/5 ML, 10ML UDC PO SCH ×2 (09:30→20:51)
[2019-11-25] MEDS: BUPROPION 100 MG TABLET PO SCH ×2 (09:31→12:50)
[2019-11-25] MEDS: MAGNESIUM OXIDE 400 MG TABLET PO SCH (09:32)
[2019-11-25] MEDS: DULOXETINE 30 MG CAPSULE.DR PO SCH (09:32)
[2019-11-25] MEDS: ONDANSETRON 2MG/ML, 2ML IVPush PRN ×2 (09:32→19:45)
[2019-11-25] MEDS: GABAPENTIN 100 MG CAPSULE PO SCH ×4 (09:32→20:55)
[2019-11-25] MEDS: ACETAMINOPHEN 500 MG TABLET PO SCH ×2 (09:33→20:52)
[2019-11-25] MEDS: HYDROmorphone 2 MG/ML, 1ML IV PRN ×3 (09:34→21:15)
[2019-11-25] MEDS: INSULIN GLARGINE 100 UNITS/ML, PEN SQ-INSULIN SCH ×2 (10:50→21:03)
[2019-11-25 14:43] VITALS: BP 107/71
[2019-11-25 19:32] VITALS: BP 94/65
[2019-11-25] MEDS: BACLOFEN 10 MG TABLET PO PRN (20:51)
[2019-11-25] MEDS: TRAZODONE 100MG TABLET PO SCH (20:52)
[2019-11-25] MEDS: METHYLNALTREXONE 12 MG/0.6 ML SYR SQ SCH (21:59)
[2019-11-26 02:36] VITALS: BP 93/63
[2019-11-26] MEDS: OXYcodone 5 MG/5 ML ORAL.SOL UDC PO PRN ×3 (04:54→21:45)
[2019-11-26 05:39] LABS: ALBUMIN 2.1 g/dL (3.4-5.0); ANION GAP 6 mmol/L (5-15); CALCIUM 9.5 mg/dL (8.5-10.1); CHLORIDE 100 mmol/L (98-107)
[2019-11-26 05:44] LABS: ALANINE AMINOTRANSFERASE 22 U/L (12-78); ALKALINE PHOSPHATASE 107 U/L (45-117); BILIRUBIN,TOTAL 0.3 mg/dL (0.2-1.0); CREATININE 1.78 mg/dL (0.7-1.3)
[2019-11-26 08:54] VITALS: BP 95/60
[2019-11-26] MEDS: ACETAMINOPHEN 500 MG TABLET PO SCH ×2 (09:57→21:47)
[2019-11-26] MEDS: BUPROPION 100 MG TABLET PO SCH ×2 (09:57→13:47)
[2019-11-26] MEDS: PANTOPRAZOLE 40 MG IV IVPush SCH (09:57)
[2019-11-26] MEDS: DULOXETINE 30 MG CAPSULE.DR PO SCH (09:58)
[2019-11-26] MEDS: GABAPENTIN 100 MG CAPSULE PO SCH ×3 (09:58→21:46)
[2019-11-26] MEDS: SEVELAMER 2.4 GM POWD.PACK JT SCH ×3 (09:58→17:03)
[2019-11-26] MEDS: DOCUSATE 50 MG/5 ML, 10ML UDC PO SCH ×2 (09:58→21:45)
[2019-11-26] MEDS: MIDODRINE 5 MG TABLET PO SCH ×3 (09:58→21:46)
[2019-11-26] MEDS: HEPARIN 5,000 UNITS/ML, 1ML SQ SCH ×2 (09:59→17:02)
[2019-11-26] MEDS: MAGNESIUM OXIDE 400 MG TABLET PO SCH (09:59)
[2019-11-26] MEDS: INSULIN LISPRO 100 UNITS/ML, PEN SQ-INSULIN SCH ×2 (10:00→21:00)
[2019-11-26] MEDS: SODIUM CHLORIDE FLUSH 10ML SYR IVF SCH ×2 (10:00→21:43)
[2019-11-26] MEDS: ONDANSETRON 2MG/ML, 2ML IVPush PRN ×2 (10:42→17:20)
[2019-11-26] MEDS: HYDROmorphone 2 MG/ML, 1ML IV PRN ×5 (10:46→17:07)
[2019-11-26] MEDS: LACTULOSE 20 GM/30 ML UDC PO PRN (12:57)
[2019-11-26 13:05] VITALS: BP 102/61
[2019-11-26] MEDS: TRAZODONE 100MG TABLET PO SCH (21:46)
[2019-11-26] MEDS: METHYLNALTREXONE 12 MG/0.6 ML SYR SQ SCH (21:51)
[2019-11-26 21:56] VITALS: BP 106/70
[2019-11-27] MEDS: HEPARIN 5,000 UNITS/ML, 1ML SQ SCH ×3 (02:06→17:15)
[2019-11-27 05:51] VITALS: BP 102/68
[2019-11-27 06:13] LABS: ALBUMIN 1.9 g/dL (3.4-5.0); ANION GAP 6 mmol/L (5-15); CHLORIDE 102 mmol/L (98-107)
[2019-11-27 06:15] LABS: CREATININE 2.33 mg/dL (0.7-1.3)
[2019-11-27] MEDS: ONDANSETRON 2MG/ML, 2ML IVPush PRN ×2 (08:10→23:22)
[2019-11-27] MEDS: PANTOPRAZOLE 40 MG IV IVPush SCH (08:10)
[2019-11-27] MEDS: HYDROmorphone 2 MG/ML, 1ML IV PRN ×4 (08:11→17:17)
[2019-11-27] MEDS: SEVELAMER 2.4 GM POWD.PACK JT SCH ×3 (08:11→17:16)
[2019-11-27] MEDS: BUPROPION 100 MG TABLET PO SCH ×2 (08:12→12:34)
[2019-11-27] MEDS: GABAPENTIN 100 MG CAPSULE PO SCH ×3 (08:12→21:50)
[2019-11-27] MEDS: MAGNESIUM OXIDE 400 MG TABLET PO SCH (08:12)
[2019-11-27] MEDS: DULOXETINE 30 MG CAPSULE.DR PO SCH (08:12)
[2019-11-27] MEDS: ACETAMINOPHEN 500 MG TABLET PO SCH ×2 (08:12→21:50)
[2019-11-27] MEDS: DOCUSATE 50 MG/5 ML, 10ML UDC PO SCH ×2 (08:13→21:50)
[2019-11-27] MEDS: SODIUM CHLORIDE FLUSH 10ML SYR IVF SCH ×2 (08:17→21:53)
[2019-11-27] MEDS: MIDODRINE 5 MG TABLET PO SCH ×3 (08:17→21:51)
[2019-11-27 08:30] VITALS: BP 124/79
[2019-11-27] MEDS: INSULIN LISPRO 100 UNITS/ML, PEN SQ-INSULIN SCH ×2 (09:00→21:00)
[2019-11-27] MEDS: FENTANYL REMOVE PATCH NOTE XX SCH (10:00)
[2019-11-27] MEDS: FENTANYL 100 MCG PATCH TD SCH (10:19)
[2019-11-27 13:41] VITALS: BP 107/68
[2019-11-27 17:13] VITALS: BP 94/63
[2019-11-27 19:00] VITALS: BP 107/71
[2019-11-27] MEDS: OXYcodone 5 MG/5 ML ORAL.SOL UDC PO PRN (19:32)
[2019-11-27] MEDS: TRAZODONE 100MG TABLET PO SCH (21:51)
[2019-11-27] MEDS: METHYLNALTREXONE 12 MG/0.6 ML SYR SQ SCH (21:52)
[2019-11-27 22:00] VITALS: BP 109/66
[2019-11-28] MEDS: HEPARIN 5,000 UNITS/ML, 1ML SQ SCH ×3 (02:33→17:20)
[2019-11-28 02:36] VITALS: BP 107/69
[2019-11-28 07:57] VITALS: BP 123/82
[2019-11-28] MEDS: SEVELAMER 2.4 GM POWD.PACK JT SCH ×3 (07:59→17:20)
[2019-11-28] MEDS: PANTOPRAZOLE 40 MG IV IVPush SCH (08:00)
[2019-11-28] MEDS: DOCUSATE 50 MG/5 ML, 10ML UDC PO SCH ×2 (08:00→21:25)
[2019-11-28] MEDS: BUPROPION 100 MG TABLET PO SCH ×2 (08:00→14:10)
[2019-11-28] MEDS: LACTULOSE 20 GM/30 ML UDC PO PRN (08:00)
[2019-11-28] MEDS: DULOXETINE 30 MG CAPSULE.DR PO SCH (08:00)
[2019-11-28] MEDS: MAGNESIUM OXIDE 400 MG TABLET PO SCH (08:00)
[2019-11-28] MEDS: ACETAMINOPHEN 500 MG TABLET PO SCH (08:01)
[2019-11-28] MEDS: GABAPENTIN 100 MG CAPSULE PO SCH ×3 (08:01→21:25)
[2019-11-28] MEDS: HYDROmorphone 2 MG/ML, 1ML IV PRN ×3 (08:01→17:21)
[2019-11-28] MEDS: ONDANSETRON 2MG/ML, 2ML IVPush PRN ×2 (08:04→23:12)
[2019-11-28] MEDS: MIDODRINE 5 MG TABLET PO SCH ×3 (08:53→21:26)
[2019-11-28] MEDS: INSULIN LISPRO 100 UNITS/ML, PEN SQ-INSULIN SCH ×2 (09:00→21:00)
[2019-11-28] MEDS: DARBEPOETIN 25 MCG/ML SQ SCH (09:00)
[2019-11-28] MEDS: DARBEPOETIN 100 MCG/ML SQ SCH (09:45)
[2019-11-28] MEDS: SODIUM CHLORIDE FLUSH 10ML SYR IVF SCH ×2 (09:48→21:25)
[2019-11-28] MEDS: ALBUMIN HUMAN 25% 100 ML IV PRN ×2 (10:32→12:48)
[2019-11-28] MEDS: LACTULOSE 20 GM/30 ML UDC PO SCH (12:00)
[2019-11-28 16:36] VITALS: BP 105/70
[2019-11-28] MEDS: OXYcodone 5 MG/5 ML ORAL.SOL UDC PO PRN ×2 (19:48→23:55)
[2019-11-28 20:05] VITALS: BP 109/74
[2019-11-28] MEDS: TRAZODONE 100MG TABLET PO SCH (21:26)
[2019-11-29] MEDS: HEPARIN 5,000 UNITS/ML, 1ML SQ SCH ×3 (02:33→17:45)
[2019-11-29 02:36] VITALS: BP 111/68
[2019-11-29] MEDS: LORazepam 1MG TABLET PO PRN (03:49)
[2019-11-29] MEDS: OXYcodone 5 MG/5 ML ORAL.SOL UDC PO PRN ×2 (03:56→22:45)
[2019-11-29] MEDS: PANTOPRAZOLE 40MG TABLET PO SCH (06:07)
[2019-11-29 07:17] LABS: HCT (SEDRATE) 23.7 % (39.2-51.8)
[2019-11-29 08:18] LABS: SEDIMENTATION RATE > 120 mm/hr (0-10)
[2019-11-29 08:45] VITALS: BP 104/69
[2019-11-29] MEDS: SEVELAMER 2.4 GM POWD.PACK JT SCH ×3 (08:48→17:11)
[2019-11-29] MEDS: BUPROPION 100 MG TABLET PO SCH ×2 (08:48→14:00)
[2019-11-29] MEDS: DOCUSATE 50 MG/5 ML, 10ML UDC PO SCH ×2 (08:49→22:32)
[2019-11-29] MEDS: DULOXETINE 30 MG CAPSULE.DR PO SCH (08:49)
[2019-11-29] MEDS: LACTULOSE 20 GM/30 ML UDC PO SCH (08:49)
[2019-11-29] MEDS: SODIUM CHLORIDE FLUSH 10ML SYR IVF SCH ×2 (08:49→22:31)
[2019-11-29] MEDS: GABAPENTIN 100 MG CAPSULE PO SCH ×3 (08:49→22:34)
[2019-11-29] MEDS: MAGNESIUM OXIDE 400 MG TABLET PO SCH (08:49)
[2019-11-29] MEDS: MIDODRINE 5 MG TABLET PO SCH ×3 (08:50→22:34)
[2019-11-29] MEDS: ONDANSETRON 2MG/ML, 2ML IVPush PRN ×3 (08:50→22:44)
[2019-11-29] MEDS: HYDROmorphone 2 MG/ML, 1ML IV PRN ×4 (08:50→17:30)
[2019-11-29] MEDS: INSULIN LISPRO 100 UNITS/ML, PEN SQ-INSULIN SCH ×2 (08:51→22:31)
[2019-11-29 16:12] VITALS: BP 119/79
[2019-11-29 19:35] VITALS: BP 114/70
[2019-11-29] MEDS: TRAZODONE 100MG TABLET PO SCH (22:34)
[2019-11-29] MEDS: BACLOFEN 10 MG TABLET PO PRN (22:45)
[2019-11-30] MEDS: HEPARIN 5,000 UNITS/ML, 1ML SQ SCH ×3 (04:10→20:13)
[2019-11-30] MEDS: HYDROmorphone 2 MG/ML, 1ML IV PRN ×5 (06:00→17:16)
[2019-11-30] MEDS: PANTOPRAZOLE 40MG TABLET PO SCH (06:41)
[2019-11-30 06:45] VITALS: BP 117/80
[2019-11-30] MEDS: MIDODRINE 5 MG TABLET PO SCH ×4 (07:42→20:12)
[2019-11-30] MEDS: BUPROPION 100 MG TABLET PO SCH ×2 (08:31→13:51)
[2019-11-30] MEDS: SEVELAMER 2.4 GM POWD.PACK JT SCH ×3 (08:31→17:15)
[2019-11-30] MEDS: DOCUSATE 50 MG/5 ML, 10ML UDC PO SCH ×2 (08:32→20:11)
[2019-11-30] MEDS: DULOXETINE 30 MG CAPSULE.DR PO SCH (08:32)
[2019-11-30] MEDS: INSULIN LISPRO 100 UNITS/ML, PEN SQ-INSULIN SCH ×2 (08:32→20:12)
[2019-11-30] MEDS: MAGNESIUM OXIDE 400 MG TABLET PO SCH (08:32)
[2019-11-30] MEDS: SODIUM CHLORIDE FLUSH 10ML SYR IVF SCH ×2 (08:32→20:12)
[2019-11-30] MEDS: GABAPENTIN 100 MG CAPSULE PO SCH ×3 (08:32→20:12)
[2019-11-30] MEDS: LACTULOSE 20 GM/30 ML UDC PO SCH (08:32)
[2019-11-30] MEDS: ONDANSETRON 2MG/ML, 2ML IVPush PRN ×2 (08:33→17:16)
[2019-11-30] MEDS: OXYcodone 5 MG/5 ML ORAL.SOL UDC PO PRN ×3 (08:33→20:11)
[2019-11-30 09:25] VITALS: BP 90/58
[2019-11-30] MEDS: ALBUMIN HUMAN 25% 100 ML IV PRN (10:00)
[2019-11-30] MEDS ORDERED: CATHFLO-ALTEPLASE 2 MG/2 ML CATHFLUSH STA ×2 (10:47)
[2019-11-30] MEDS: FENTANYL REMOVE PATCH NOTE XX SCH (10:52)
[2019-11-30] MEDS: FENTANYL 100 MCG PATCH TD SCH (10:52)
[2019-11-30 13:23] VITALS: BP 110/75
[2019-11-30 20:05] VITALS: BP 106/68
[2019-11-30] MEDS: TRAZODONE 100MG TABLET PO SCH (20:12)
[2019-12-01] MEDS: OXYcodone 5 MG/5 ML ORAL.SOL UDC PO PRN ×5 (00:05→21:18)
[2019-12-01 00:25] VITALS: BP 111/74
[2019-12-01] MEDS: HEPARIN 5,000 UNITS/ML, 1ML SQ SCH ×3 (04:21→20:51)
[2019-12-01] MEDS: PANTOPRAZOLE 40MG TABLET PO SCH ×2 (06:00→06:18)
[2019-12-01 06:32] VITALS: BP 110/72
[2019-12-01] MEDS: INSULIN LISPRO 100 UNITS/ML, PEN SQ-INSULIN SCH ×2 (09:04→20:51)
[2019-12-01] MEDS: SODIUM CHLORIDE FLUSH 10ML SYR IVF SCH ×2 (09:09→20:51)
[2019-12-01] MEDS: DOCUSATE 50 MG/5 ML, 10ML UDC PO SCH ×2 (09:09→20:51)
[2019-12-01] MEDS: LACTULOSE 20 GM/30 ML UDC PO SCH (09:09)
[2019-12-01] MEDS: SEVELAMER 2.4 GM POWD.PACK JT SCH ×3 (09:09→16:21)
[2019-12-01] MEDS: ONDANSETRON 2MG/ML, 2ML IVPush PRN ×2 (09:17→17:06)
[2019-12-01] MEDS: HYDROmorphone 2 MG/ML, 1ML IV PRN ×3 (09:19→17:06)
[2019-12-01] MEDS: GABAPENTIN 100 MG CAPSULE PO SCH ×3 (09:19→20:50)
[2019-12-01] MEDS: MIDODRINE 5 MG TABLET PO SCH ×3 (09:19→20:50)
[2019-12-01] MEDS: BUPROPION 100 MG TABLET PO SCH ×2 (09:20→12:51)
[2019-12-01] MEDS: DULOXETINE 30 MG CAPSULE.DR PO SCH (09:20)
[2019-12-01] MEDS: MAGNESIUM OXIDE 400 MG TABLET PO SCH (09:21)
[2019-12-01] MEDS: HYDROmorphone 2 MG/ML, 1ML IVPush PRN (11:06)
[2019-12-01 12:12] VITALS: BP 109/77
[2019-12-01 20:48] VITALS: BP 108/66
[2019-12-01] MEDS: TRAZODONE 100MG TABLET PO SCH (20:50)
[2019-12-02 02:09] VITALS: BP 98/60
[2019-12-02] MEDS: HEPARIN 5,000 UNITS/ML, 1ML SQ SCH ×3 (04:04→23:22)
[2019-12-02] MEDS: PANTOPRAZOLE 40MG TABLET PO SCH (06:00)
[2019-12-02 08:14] VITALS: BP 110/72
[2019-12-02] MEDS: INSULIN LISPRO 100 UNITS/ML, PEN SQ-INSULIN SCH ×2 (08:43→23:48)
[2019-12-02] MEDS: SEVELAMER 2.4 GM POWD.PACK JT SCH ×3 (08:58→17:03)
[2019-12-02] MEDS: DULOXETINE 30 MG CAPSULE.DR PO SCH (09:00)
[2019-12-02] MEDS: LACTULOSE 20 GM/30 ML UDC PO SCH (09:00)
[2019-12-02] MEDS: SODIUM CHLORIDE FLUSH 10ML SYR IVF SCH ×2 (09:00→23:21)
[2019-12-02] MEDS: DOCUSATE 50 MG/5 ML, 10ML UDC PO SCH ×2 (09:00→23:22)
[2019-12-02] MEDS: BUPROPION 100 MG TABLET PO SCH ×2 (09:00→12:57)
[2019-12-02] MEDS: GABAPENTIN 100 MG CAPSULE PO SCH ×3 (09:01→23:23)
[2019-12-02] MEDS: MAGNESIUM OXIDE 400 MG TABLET PO SCH (09:01)
[2019-12-02] MEDS: MIDODRINE 5 MG TABLET PO SCH ×3 (09:01→23:23)
[2019-12-02] MEDS: ONDANSETRON 2MG/ML, 2ML IVPush PRN ×2 (09:01→17:00)
[2019-12-02] MEDS: OXYcodone 5 MG/5 ML ORAL.SOL UDC PO PRN ×3 (09:02→23:49)
[2019-12-02] MEDS: HYDROmorphone 2 MG/ML, 1ML IV PRN ×3 (09:02→17:07)
[2019-12-02] MEDS: ALBUMIN HUMAN 25% 100 ML IV PRN (10:43)
[2019-12-02 13:02] VITALS: BP 105/72
[2019-12-02 20:55] VITALS: BP 102/69
[2019-12-02] MEDS: TRAZODONE 100MG TABLET PO SCH (23:23)
[2019-12-03 03:55] VITALS: BP 123/80
[2019-12-03 04:34] VITALS: BP 99/61
[2019-12-03] MEDS: HEPARIN 5,000 UNITS/ML, 1ML SQ SCH ×3 (06:04→22:33)
[2019-12-03] MEDS: METOCLOPRAMIDE 5 MG/ML, 2ML IV PRN (06:06)
[2019-12-03] MEDS: OXYcodone 5 MG/5 ML ORAL.SOL UDC PO PRN ×3 (06:19→20:11)
[2019-12-03 06:51] LABS: MEAN CORPUSCULAR HEMOGLOBIN 28.2 pg (27.5-34.5); MEAN CORPUSCULAR HGB CONC 32.3 g/dL (33.2-36.2); MEAN CORPUSCULAR VOLUME 87.5 fL (81-97); MEAN PLATELET VOLUME 7.4 fL (7.4-10.4); PLATELET COUNT 259 x10^3/uL (130-400); RED BLOOD COUNT 3.16 x10^6/uL (4.38-5.82); RED CELL DISTRIBUTION WIDTH 16.6 % (9.4-14.8)
[2019-12-03 07:06] LABS: ANION GAP 4 mmol/L (5-15); CHLORIDE 99 mmol/L (98-107); CREATININE 1.73 mg/dL (0.7-1.3)
[2019-12-03 08:35] LABS: BASOPHILS # (AUTO) 0.01 x10^3/uL (0-0.1); BASOPHILS % (AUTO) 0 % (0-1); EOSINOPHILS % (AUTO) 3 % (1-7); LYMPHOCYTES # (AUTO) 0.64 x10^3/uL (1-3.4); LYMPHOCYTES % (AUTO) 4 % (22-44); MD SCAN; MONOCYTES # (AUTO) 0.62 x10^3/uL (0.2-0.8); MONOCYTES % (AUTO) 3 % (2-9); NEUTROPHILS # (AUTO) 16.44 x10^3/uL (1.8-6.8); NEUTROPHILS % (AUTO) 90 % (42-75)
[2019-12-03] MEDS: SEVELAMER 2.4 GM POWD.PACK JT SCH ×3 (08:38→17:36)
[2019-12-03] MEDS: LACTULOSE 20 GM/30 ML UDC PO SCH (08:39)
[2019-12-03] MEDS: DOCUSATE 50 MG/5 ML, 10ML UDC PO SCH ×2 (08:39→21:01)
[2019-12-03 08:46] VITALS: BP 107/71
[2019-12-03] MEDS: BUPROPION 100 MG TABLET PO SCH ×2 (08:48→12:45)
[2019-12-03] MEDS: PANTOPRAZOLE 40MG TABLET PO SCH (08:48)
[2019-12-03] MEDS: HYDROmorphone 2 MG/ML, 1ML IV PRN ×3 (08:48→17:37)
[2019-12-03] MEDS: MAGNESIUM OXIDE 400 MG TABLET PO SCH (08:48)
[2019-12-03] MEDS: DULOXETINE 30 MG CAPSULE.DR PO SCH (08:49)
[2019-12-03] MEDS: MIDODRINE 5 MG TABLET PO SCH ×3 (08:49→21:02)
[2019-12-03] MEDS: GABAPENTIN 100 MG CAPSULE PO SCH ×3 (08:49→21:02)
[2019-12-03] MEDS: ONDANSETRON 2MG/ML, 2ML IVPush PRN (08:58)
[2019-12-03] MEDS: INSULIN LISPRO 100 UNITS/ML, PEN SQ-INSULIN SCH ×2 (09:00→20:57)
[2019-12-03] MEDS: SODIUM CHLORIDE FLUSH 10ML SYR IVF SCH ×2 (09:00→21:01)
[2019-12-03] MEDS: FENTANYL REMOVE PATCH NOTE XX SCH (10:00)
[2019-12-03] MEDS: FENTANYL 100 MCG PATCH TD SCH (10:09)
[2019-12-03 15:49] VITALS: BP 94/61
[2019-12-03] MEDS: AMPICILLIN/SULBACTAM 3 GM in SODIUM CHLORIDE 0.9% 100 ML IV SCH ×2 (17:57→23:32)
[2019-12-03] MEDS: TRAZODONE 100MG TABLET PO SCH (21:02)
[2019-12-03 21:07] VITALS: BP 105/67
[2019-12-04 02:49] VITALS: BP 111/68
[2019-12-04 05:24] LABS: BASOPHILS # (AUTO) 0.04 x10^3/uL (0-0.1); BASOPHILS % (AUTO) 0 % (0-1); EOSINOPHILS # (AUTO) 0.69 x10^3/uL (0-0.4); EOSINOPHILS % (AUTO) 7 % (1-7); LYMPHOCYTES # (AUTO) 1.37 x10^3/uL (1-3.4); LYMPHOCYTES % (AUTO) 13 % (22-44); MD NO; MEAN CORPUSCULAR HEMOGLOBIN 28.3 pg (27.5-34.5); MEAN CORPUSCULAR HGB CONC 32.2 g/dL (33.2-36.2); MEAN PLATELET VOLUME 7.4 fL (7.4-10.4); MONOCYTES % (AUTO) 8 % (2-9); NEUTROPHILS # (AUTO) 7.32 x10^3/uL (1.8-6.8); NEUTROPHILS % (AUTO) 72 % (42-75); PLATELET COUNT 245 x10^3/uL (130-400); RED BLOOD COUNT 2.67 x10^6/uL (4.38-5.82); RED CELL DISTRIBUTION WIDTH 16.4 % (9.4-14.8)
[2019-12-04 05:35] LABS: ALBUMIN 2.2 g/dL (3.4-5.0); ANION GAP 5 mmol/L (5-15); CALCIUM 10.9 mg/dL (8.5-10.1); CHLORIDE 101 mmol/L (98-107); CREATININE 2.17 mg/dL (0.7-1.3)
[2019-12-04] MEDS: AMPICILLIN/SULBACTAM 3 GM in SODIUM CHLORIDE 0.9% 100 ML IV SCH ×3 (06:26→18:07)
[2019-12-04] MEDS: HEPARIN 5,000 UNITS/ML, 1ML SQ SCH ×3 (06:27→21:50)
[2019-12-04] MEDS: INSULIN LISPRO 100 UNITS/ML, PEN SQ-INSULIN SCH ×2 (08:42→21:00)
[2019-12-04] MEDS: PANTOPRAZOLE 40MG TABLET PO SCH (08:42)
[2019-12-04] MEDS: BUPROPION 100 MG TABLET PO SCH ×2 (08:43→13:12)
[2019-12-04] MEDS: SEVELAMER 2.4 GM POWD.PACK JT SCH ×3 (08:43→17:24)
[2019-12-04] MEDS: DOCUSATE 50 MG/5 ML, 10ML UDC PO SCH ×2 (08:43→21:46)
[2019-12-04] MEDS: SODIUM CHLORIDE FLUSH 10ML SYR IVF SCH ×2 (08:43→21:49)
[2019-12-04] MEDS: LACTULOSE 20 GM/30 ML UDC PO SCH (08:44)
[2019-12-04] MEDS: GABAPENTIN 100 MG CAPSULE PO SCH ×3 (08:44→21:47)
[2019-12-04] MEDS: MAGNESIUM OXIDE 400 MG TABLET PO SCH (08:44)
[2019-12-04] MEDS: DULOXETINE 30 MG CAPSULE.DR PO SCH (08:44)
[2019-12-04 08:45] VITALS: BP 103/68
[2019-12-04] MEDS: MIDODRINE 5 MG TABLET PO SCH ×3 (08:47→21:49)
[2019-12-04] MEDS: OXYcodone 5 MG/5 ML ORAL.SOL UDC PO PRN ×4 (09:00→21:46)
[2019-12-04] MEDS: HYDROmorphone 2 MG/ML, 1ML IV PRN ×3 (10:18→13:12)
[2019-12-04] MEDS: ONDANSETRON 2MG/ML, 2ML IVPush PRN (10:21)
[2019-12-04 15:45] VITALS: BP 101/62
[2019-12-04] MEDS: TRAZODONE 100MG TABLET PO SCH (21:47)
[2019-12-04 21:50] VITALS: BP 102/68
[2019-12-05] MEDS: AMPICILLIN/SULBACTAM 3 GM in SODIUM CHLORIDE 0.9% 100 ML IV SCH ×4 (00:13→19:31)
[2019-12-05] MEDS: LORazepam 1MG TABLET PO PRN (00:13)
[2019-12-05] MEDS: OXYcodone 5 MG/5 ML ORAL.SOL UDC PO PRN ×4 (01:46→19:25)
[2019-12-05 04:07] VITALS: BP 109/70
[2019-12-05] MEDS: HEPARIN 5,000 UNITS/ML, 1ML SQ SCH ×3 (05:56→21:35)
[2019-12-05] MEDS: PANTOPRAZOLE 40MG TABLET PO SCH (08:50)
[2019-12-05] MEDS: SEVELAMER 2.4 GM POWD.PACK JT SCH ×3 (08:50→20:59)
[2019-12-05] MEDS: BUPROPION 100 MG TABLET PO SCH ×2 (08:50→12:49)
[2019-12-05] MEDS: DARBEPOETIN 100 MCG/ML SQ SCH (08:50)
[2019-12-05] MEDS: DOCUSATE 50 MG/5 ML, 10ML UDC PO SCH ×2 (08:51→20:58)
[2019-12-05] MEDS: MAGNESIUM OXIDE 400 MG TABLET PO SCH (08:51)
[2019-12-05] MEDS: DARBEPOETIN 25 MCG/ML SQ SCH (08:51)
[2019-12-05] MEDS: DULOXETINE 30 MG CAPSULE.DR PO SCH (08:51)
[2019-12-05] MEDS: LACTULOSE 20 GM/30 ML UDC PO SCH (08:51)
[2019-12-05] MEDS: MIDODRINE 5 MG TABLET PO SCH ×3 (08:52→21:02)
[2019-12-05] MEDS: GABAPENTIN 100 MG CAPSULE PO SCH ×3 (08:52→20:59)
[2019-12-05] MEDS: HYDROmorphone 2 MG/ML, 1ML IV PRN ×3 (08:54→21:16)
[2019-12-05 09:00] VITALS: BP 105/70
[2019-12-05] MEDS: INSULIN LISPRO 100 UNITS/ML, PEN SQ-INSULIN SCH ×2 (09:00→21:00)
[2019-12-05] MEDS: ONDANSETRON 2MG/ML, 2ML IVPush PRN ×2 (09:01→21:06)
[2019-12-05] MEDS: SODIUM CHLORIDE FLUSH 10ML SYR IVF SCH ×2 (09:08→21:05)
[2019-12-05 14:45] VITALS: BP 103/63
[2019-12-05 16:24] VITALS: BP 93/59
[2019-12-05 20:45] VITALS: BP 108/69
[2019-12-05] MEDS: TRAZODONE 100MG TABLET PO SCH (20:59)
[2019-12-06] MEDS: OXYcodone 5 MG/5 ML ORAL.SOL UDC PO PRN ×3 (01:03→15:04)
[2019-12-06] MEDS: AMPICILLIN/SULBACTAM 3 GM in SODIUM CHLORIDE 0.9% 100 ML IV SCH ×4 (01:06→18:40)
[2019-12-06 02:21] VITALS: BP 94/61
[2019-12-06] MEDS: HEPARIN 5,000 UNITS/ML, 1ML SQ SCH ×3 (05:30→20:24)
[2019-12-06 08:12] VITALS: BP 101/62
[2019-12-06] MEDS: MAGNESIUM OXIDE 400 MG TABLET PO SCH (08:32)
[2019-12-06] MEDS: BUPROPION 100 MG TABLET PO SCH ×2 (08:32→12:34)
[2019-12-06] MEDS: GABAPENTIN 100 MG CAPSULE PO SCH ×3 (08:32→20:21)
[2019-12-06] MEDS: DULOXETINE 30 MG CAPSULE.DR PO SCH (08:32)
[2019-12-06] MEDS: MIDODRINE 5 MG TABLET PO SCH ×3 (08:32→20:22)
[2019-12-06] MEDS: ONDANSETRON 2MG/ML, 2ML IVPush PRN (08:45)
[2019-12-06] MEDS: DOCUSATE 50 MG/5 ML, 10ML UDC PO SCH ×2 (08:46→22:58)
[2019-12-06] MEDS: SEVELAMER 2.4 GM POWD.PACK JT SCH ×3 (08:46→17:21)
[2019-12-06] MEDS: LACTULOSE 20 GM/30 ML UDC PO SCH (08:46)
[2019-12-06] MEDS: HYDROmorphone 2 MG/ML, 1ML IV PRN ×3 (08:47→17:20)
[2019-12-06] MEDS: INSULIN LISPRO 100 UNITS/ML, PEN SQ-INSULIN SCH ×2 (08:47→20:21)
[2019-12-06] MEDS: PANTOPRAZOLE 40MG TABLET PO SCH (08:48)
[2019-12-06] MEDS: SODIUM CHLORIDE FLUSH 10ML SYR IVF SCH ×2 (08:48→22:59)
[2019-12-06] MEDS: FENTANYL REMOVE PATCH NOTE XX SCH (10:00)
[2019-12-06] MEDS: FENTANYL 100 MCG PATCH TD SCH (10:47)
[2019-12-06] MEDS: HYDROmorphone 2 MG/ML, 1ML IVPush PRN (11:00)
[2019-12-06 16:40] VITALS: BP 104/70
[2019-12-06 21:00] VITALS: BP 107/70
[2019-12-06] MEDS: MELATONIN 5 MG TABLET PO PRN (22:58)
[2019-12-06] MEDS: TRAZODONE 100MG TABLET PO SCH (22:58)
[2019-12-07] MEDS: AMPICILLIN/SULBACTAM 3 GM in SODIUM CHLORIDE 0.9% 100 ML IV SCH ×4 (01:03→22:34)
[2019-12-07 04:00] VITALS: BP 104/68
[2019-12-07] MEDS: ONDANSETRON 2MG/ML, 2ML IVPush PRN ×2 (04:35→17:33)
[2019-12-07] MEDS: HEPARIN 5,000 UNITS/ML, 1ML SQ SCH ×3 (05:25→22:18)
[2019-12-07] MEDS: OXYcodone 5 MG/5 ML ORAL.SOL UDC PO PRN ×5 (05:25→22:19)
[2019-12-07] MEDS: HYDROmorphone 2 MG/ML, 1ML IV PRN ×3 (08:55→23:00)
[2019-12-07] MEDS: BUPROPION 100 MG TABLET PO SCH ×2 (09:25→12:00)
[2019-12-07] MEDS: LACTULOSE 20 GM/30 ML UDC PO SCH (09:25)
[2019-12-07] MEDS: MAGNESIUM OXIDE 400 MG TABLET PO SCH (09:25)
[2019-12-07] MEDS: PANTOPRAZOLE 40MG TABLET PO SCH (09:25)
[2019-12-07] MEDS: MIDODRINE 5 MG TABLET PO SCH ×3 (09:25→20:53)
[2019-12-07] MEDS: GABAPENTIN 100 MG CAPSULE PO SCH ×3 (09:25→19:27)
[2019-12-07] MEDS: DULOXETINE 30 MG CAPSULE.DR PO SCH (09:25)
[2019-12-07] MEDS: DOCUSATE 50 MG/5 ML, 10ML UDC PO SCH ×2 (09:25→19:27)
[2019-12-07] MEDS: SEVELAMER 2.4 GM POWD.PACK JT SCH ×4 (09:26→17:33)
[2019-12-07] MEDS: SODIUM CHLORIDE FLUSH 10ML SYR IVF SCH ×2 (09:26→22:32)
[2019-12-07] MEDS: INSULIN LISPRO 100 UNITS/ML, PEN SQ-INSULIN SCH ×2 (10:08→21:00)
[2019-12-07 11:44] VITALS: BP 123/79
[2019-12-07 15:47] LABS: SEDIMENTATION RATE > 120 mm/hr (0-10)
[2019-12-07 17:13] VITALS: BP 95/69
[2019-12-07 18:28] VITALS: BP 111/76
[2019-12-07] MEDS: BACLOFEN 10 MG TABLET PO PRN (19:29)
[2019-12-07] MEDS: MELATONIN 5 MG TABLET PO PRN (22:17)
[2019-12-07] MEDS: TRAZODONE 100MG TABLET PO SCH (22:17)
[2019-12-07] MEDS: METOCLOPRAMIDE 5 MG/ML, 2ML IV PRN (22:18)
[2019-12-08 00:25] VITALS: BP 104/71
[2019-12-08] MEDS: ONDANSETRON 2MG/ML, 2ML IVPush PRN ×2 (04:05→17:13)
[2019-12-08] MEDS: OXYcodone 5 MG/5 ML ORAL.SOL UDC PO PRN ×2 (04:05→08:31)
[2019-12-08] MEDS: AMPICILLIN/SULBACTAM 3 GM in SODIUM CHLORIDE 0.9% 100 ML IV SCH ×2 (06:25→12:13)
[2019-12-08] MEDS: HEPARIN 5,000 UNITS/ML, 1ML SQ SCH ×3 (06:26→20:53)
[2019-12-08 08:00] VITALS: BP 102/68
[2019-12-08 08:25] VITALS: BP_SYST 102; BP_SYST 112; BP_DIAS 64
[2019-12-08] MEDS: BUPROPION 100 MG TABLET PO SCH ×2 (08:29→12:14)
[2019-12-08] MEDS: PANTOPRAZOLE 40MG TABLET PO SCH (08:29)
[2019-12-08] MEDS: DULOXETINE 30 MG CAPSULE.DR PO SCH (08:29)
[2019-12-08] MEDS: MAGNESIUM OXIDE 400 MG TABLET PO SCH (08:29)
[2019-12-08] MEDS: MIDODRINE 5 MG TABLET PO SCH ×3 (08:30→20:53)
[2019-12-08] MEDS: GABAPENTIN 100 MG CAPSULE PO SCH ×3 (08:30→20:52)
[2019-12-08] MEDS: SEVELAMER 2.4 GM POWD.PACK JT SCH ×3 (08:30→17:13)
[2019-12-08] MEDS: DOCUSATE 50 MG/5 ML, 10ML UDC PO SCH ×2 (08:31→20:52)
[2019-12-08] MEDS: SODIUM CHLORIDE FLUSH 10ML SYR IVF SCH ×2 (08:32→21:00)
[2019-12-08] MEDS: LACTULOSE 20 GM/30 ML UDC PO SCH (08:32)
[2019-12-08] MEDS: HYDROmorphone 2 MG/ML, 1ML IV PRN ×2 (08:33→17:13)
[2019-12-08] MEDS: METOCLOPRAMIDE 5 MG/ML, 2ML IV PRN (08:43)
[2019-12-08] MEDS: INSULIN LISPRO 100 UNITS/ML, PEN SQ-INSULIN SCH ×2 (09:00→20:53)
[2019-12-08] MEDS: OXYcodone IR 5MG TABLET PO PRN ×4 (12:14→23:52)
[2019-12-08 14:14] VITALS: BP 96/64
[2019-12-08 16:24] VITALS: BP 109/75
[2019-12-08 20:00] VITALS: BP 104/72
[2019-12-08] MEDS: TRAZODONE 100MG TABLET PO SCH (20:52)
[2019-12-09 03:25] VITALS: BP 107/72
[2019-12-09] MEDS: POLYETHYLENE GLYCOL 17 GM PACKET PO PRN (05:24)
[2019-12-09] MEDS: HEPARIN 5,000 UNITS/ML, 1ML SQ SCH ×3 (05:25→22:57)
[2019-12-09] MEDS: OXYcodone IR 5MG TABLET PO PRN ×3 (05:25→19:54)
[2019-12-09] MEDS: PANTOPRAZOLE 40MG TABLET PO SCH (08:15)
[2019-12-09 08:23] VITALS: BP 100/67
[2019-12-09] MEDS: INSULIN LISPRO 100 UNITS/ML, PEN SQ-INSULIN SCH ×2 (08:23→21:00)
[2019-12-09] MEDS: MAGNESIUM OXIDE 400 MG TABLET PO SCH (08:26)
[2019-12-09] MEDS: GABAPENTIN 100 MG CAPSULE PO SCH ×3 (08:26→22:57)
[2019-12-09] MEDS: DULOXETINE 30 MG CAPSULE.DR PO SCH (08:26)
[2019-12-09] MEDS: HYDROmorphone 2 MG/ML, 1ML IV PRN ×3 (08:26→12:34)
[2019-12-09] MEDS: BUPROPION 100 MG TABLET PO SCH ×2 (08:26→12:33)
[2019-12-09] MEDS: MIDODRINE 5 MG TABLET PO SCH ×3 (08:27→22:57)
[2019-12-09] MEDS: LACTULOSE 20 GM/30 ML UDC PO SCH (08:27)
[2019-12-09] MEDS: SODIUM CHLORIDE FLUSH 10ML SYR IVF SCH ×2 (08:27→22:57)
[2019-12-09] MEDS: DOCUSATE 50 MG/5 ML, 10ML UDC PO SCH ×2 (08:27→22:57)
[2019-12-09] MEDS: SEVELAMER 2.4 GM POWD.PACK JT SCH ×3 (08:27→16:43)
[2019-12-09] MEDS: ONDANSETRON 2MG/ML, 2ML IVPush PRN (08:34)
[2019-12-09] MEDS ORDERED: HYDROmorphone 2 MG/ML, 1ML IVPush PRN (09:30)
[2019-12-09] MEDS: FENTANYL REMOVE PATCH NOTE XX SCH (09:54)
[2019-12-09] MEDS: FENTANYL 100 MCG PATCH TD SCH (09:54)
[2019-12-09] MEDS: METOCLOPRAMIDE 5 MG/ML, 2ML IV PRN (12:34)
[2019-12-09 14:50] VITALS: BP 100/68
[2019-12-09] MEDS: ALBUMIN HUMAN 25% 100 ML IV PRN (16:34)
[2019-12-09 19:13] VITALS: BP 106/70
[2019-12-09] MEDS: TRAZODONE 100MG TABLET PO SCH (22:58)
[2019-12-09] MEDS: LORazepam 1MG TABLET PO PRN (22:58)
[2019-12-10] MEDS: HYDROmorphone 2 MG/ML, 1ML IV PRN ×3 (02:11→17:51)
[2019-12-10 02:12] VITALS: BP 99/66
[2019-12-10] MEDS: HEPARIN 5,000 UNITS/ML, 1ML SQ SCH ×3 (06:29→21:47)
[2019-12-10] MEDS ORDERED: DOCUSATE 100 MG CAPSULE ONE (07:45)
[2019-12-10 08:00] VITALS: BP 104/72
[2019-12-10] MEDS: BUPROPION 100 MG TABLET PO SCH ×3 (08:00→14:43)
[2019-12-10] MEDS: SEVELAMER 2.4 GM POWD.PACK JT SCH ×3 (08:00→16:57)
[2019-12-10] MEDS: GABAPENTIN 300 MG CAPSULE PO SCH ×3 (08:00→21:09)
[2019-12-10] MEDS: MIDODRINE 5 MG TABLET PO SCH ×3 (09:00→21:09)
[2019-12-10] MEDS: SODIUM CHLORIDE FLUSH 10ML SYR IVF SCH ×2 (09:00→21:12)
[2019-12-10] MEDS: INSULIN LISPRO 100 UNITS/ML, PEN SQ-INSULIN SCH ×2 (09:00→20:40)
[2019-12-10] MEDS: LACTULOSE 20 GM/30 ML UDC PO SCH (14:42)
[2019-12-10] MEDS: PANTOPRAZOLE 40MG TABLET PO SCH (14:44)
[2019-12-10] MEDS: MAGNESIUM OXIDE 400 MG TABLET PO SCH (14:44)
[2019-12-10] MEDS: DULOXETINE 30 MG CAPSULE.DR PO SCH (14:44)
[2019-12-10 14:45] VITALS: BP 102/62
[2019-12-10] MEDS: OXYcodone IR 5MG TABLET PO PRN (19:44)
[2019-12-10 21:06] VITALS: BP 99/64
[2019-12-10] MEDS: TRAZODONE 100MG TABLET PO SCH (21:09)
[2019-12-10] MEDS: DOCUSATE 100 MG CAPSULE PO SCH (21:09)
[2019-12-10] MEDS: LORazepam 1MG TABLET PO PRN (21:46)
[2019-12-11] MEDS: HEPARIN 5,000 UNITS/ML, 1ML SQ SCH ×3 (06:01→22:04)
[2019-12-11 06:04] VITALS: BP 108/72
[2019-12-11 06:31] LABS: BASOPHILS # (AUTO) 0.04 x10^3/uL (0-0.1); BASOPHILS % (AUTO) 1 % (0-1); EOSINOPHILS # (AUTO) 0.42 x10^3/uL (0-0.4); EOSINOPHILS % (AUTO) 4 % (1-7); LYMPHOCYTES # (AUTO) 1.37 x10^3/uL (1-3.4); LYMPHOCYTES % (AUTO) 15 % (22-44); MD NO; MEAN CORPUSCULAR HGB CONC 31.7 g/dL (33.2-36.2); MEAN CORPUSCULAR VOLUME 88.3 fL (81-97); MEAN PLATELET VOLUME 7.5 fL (7.4-10.4); MONOCYTES # (AUTO) 0.75 x10^3/uL (0.2-0.8); MONOCYTES % (AUTO) 8 % (2-9); NEUTROPHILS % (AUTO) 73 % (42-75); PLATELET COUNT 263 x10^3/uL (130-400); RED BLOOD COUNT 2.82 x10^6/uL (4.38-5.82); RED CELL DISTRIBUTION WIDTH 16.2 % (9.4-14.8)
[2019-12-11 06:32] LABS: HCT (SEDRATE) 24.7 % (39.2-51.8)
[2019-12-11 06:43] LABS: ALBUMIN 2.3 g/dL (3.4-5.0); ANION GAP 5 mmol/L (5-15); CALCIUM 11.1 mg/dL (8.5-10.1); CHLORIDE 102 mmol/L (98-107); CREATININE 2.13 mg/dL (0.7-1.3)
[2019-12-11 07:27] LABS: SEDIMENTATION RATE > 120 mm/hr (0-10)
[2019-12-11] MEDS: ONDANSETRON 2MG/ML, 2ML IVPush PRN (08:47)
[2019-12-11] MEDS: SEVELAMER 2.4 GM POWD.PACK JT SCH ×3 (08:48→17:36)
[2019-12-11] MEDS: PANTOPRAZOLE 40MG TABLET PO SCH (08:48)
[2019-12-11] MEDS: SODIUM CHLORIDE FLUSH 10ML SYR IVF SCH ×2 (08:48→21:20)
[2019-12-11] MEDS: BUPROPION 100 MG TABLET PO SCH ×2 (08:48→14:04)
[2019-12-11] MEDS: GABAPENTIN 300 MG CAPSULE PO SCH ×3 (08:49→21:20)
[2019-12-11] MEDS: LACTULOSE 20 GM/30 ML UDC PO SCH (08:49)
[2019-12-11] MEDS: MAGNESIUM OXIDE 400 MG TABLET PO SCH (08:49)
[2019-12-11] MEDS: MIDODRINE 5 MG TABLET PO SCH ×3 (08:49→21:00)
[2019-12-11] MEDS: DOCUSATE 100 MG CAPSULE PO SCH ×2 (08:49→21:20)
[2019-12-11] MEDS: DULOXETINE 30 MG CAPSULE.DR PO SCH (08:49)
[2019-12-11] MEDS: OXYcodone IR 5MG TABLET PO PRN ×3 (08:50→19:07)
[2019-12-11] MEDS: HYDROmorphone 2 MG/ML, 1ML IV PRN ×5 (08:50→17:36)
[2019-12-11] MEDS: INSULIN LISPRO 100 UNITS/ML, PEN SQ-INSULIN SCH ×2 (09:00→21:00)
[2019-12-11] MEDS: LORazepam 1MG TABLET PO PRN ×2 (11:10→23:35)
[2019-12-11 15:59] VITALS: BP 119/76
[2019-12-11 21:16] VITALS: BP 135/80
[2019-12-11] MEDS: TRAZODONE 100MG TABLET PO SCH (21:20)
[2019-12-12 04:45] VITALS: BP 120/79
[2019-12-12] MEDS: HEPARIN 5,000 UNITS/ML, 1ML SQ SCH ×3 (05:52→21:59)
[2019-12-12] MEDS: OXYcodone IR 5MG TABLET PO PRN ×3 (07:42→18:49)
[2019-12-12] MEDS: PANTOPRAZOLE 40MG TABLET PO SCH (07:43)
[2019-12-12] MEDS: INSULIN LISPRO 100 UNITS/ML, PEN SQ-INSULIN SCH ×2 (07:43→21:00)
[2019-12-12 08:33] VITALS: BP 110/73
[2019-12-12] MEDS: ONDANSETRON 2MG/ML, 2ML IVPush PRN ×2 (08:49→21:20)
[2019-12-12] MEDS: DULOXETINE 30 MG CAPSULE.DR PO SCH (08:50)
[2019-12-12] MEDS: HYDROmorphone 2 MG/ML, 1ML IV PRN ×3 (08:50→17:45)
[2019-12-12] MEDS: MAGNESIUM OXIDE 400 MG TABLET PO SCH (08:50)
[2019-12-12] MEDS: BUPROPION 100 MG TABLET PO SCH ×2 (08:50→15:11)
[2019-12-12] MEDS: LACTULOSE 20 GM/30 ML UDC PO SCH (08:50)
[2019-12-12] MEDS: DOCUSATE 100 MG CAPSULE PO SCH ×2 (08:50→21:21)
[2019-12-12] MEDS: GABAPENTIN 300 MG CAPSULE PO SCH ×3 (08:50→21:20)
[2019-12-12] MEDS: MIDODRINE 5 MG TABLET PO SCH ×3 (08:51→21:23)
[2019-12-12] MEDS: SEVELAMER 2.4 GM POWD.PACK JT SCH ×3 (08:51→17:44)
[2019-12-12] MEDS: SODIUM CHLORIDE FLUSH 10ML SYR IVF SCH ×2 (09:00→21:20)
[2019-12-12] MEDS: DARBEPOETIN 100 MCG/ML SQ SCH (10:33)
[2019-12-12] MEDS: DARBEPOETIN 25 MCG/ML SQ SCH (10:33)
[2019-12-12] MEDS: FENTANYL REMOVE PATCH NOTE XX SCH (10:38)
[2019-12-12] MEDS: FENTANYL 100 MCG PATCH TD SCH (10:38)
[2019-12-12 15:09] VITALS: BP 109/71
[2019-12-12] MEDS: MEROPENEM 1 GM in SODIUM CHLORIDE 0.9% 100 ML IV SCH (17:44)
[2019-12-12] MEDS: HYDROmorphone 2 MG/ML, 1ML IVPush PRN (21:26)
[2019-12-12] MEDS: TRAZODONE 100MG TABLET PO SCH (21:55)
[2019-12-12 23:11] VITALS: BP 108/65
[2019-12-13] MEDS: MEROPENEM 1 GM in SODIUM CHLORIDE 0.9% 100 ML IV SCH ×3 (01:25→17:52)
[2019-12-13 04:58] VITALS: BP 107/72
[2019-12-13] MEDS: HEPARIN 5,000 UNITS/ML, 1ML SQ SCH ×3 (05:11→23:28)
[2019-12-13] MEDS: PANTOPRAZOLE 40MG TABLET PO SCH (07:55)
[2019-12-13] MEDS: INSULIN LISPRO 100 UNITS/ML, PEN SQ-INSULIN SCH ×2 (07:59→21:00)
[2019-12-13 08:43] VITALS: BP 118/77
[2019-12-13] MEDS: HYDROmorphone 2 MG/ML, 1ML IV PRN ×3 (08:49→17:54)
[2019-12-13] MEDS: BUPROPION 100 MG TABLET PO SCH ×2 (08:50→13:23)
[2019-12-13] MEDS: GABAPENTIN 300 MG CAPSULE PO SCH ×3 (08:50→23:26)
[2019-12-13] MEDS: MAGNESIUM OXIDE 400 MG TABLET PO SCH (08:51)
[2019-12-13] MEDS: OXYcodone IR 5MG TABLET PO PRN ×4 (08:51→23:31)
[2019-12-13] MEDS: LACTULOSE 20 GM/30 ML UDC PO SCH (08:52)
[2019-12-13] MEDS: DULOXETINE 30 MG CAPSULE.DR PO SCH (08:52)
[2019-12-13] MEDS: SEVELAMER 2.4 GM POWD.PACK JT SCH ×3 (08:52→17:52)
[2019-12-13] MEDS: DOCUSATE 100 MG CAPSULE PO SCH ×2 (08:52→23:26)
[2019-12-13] MEDS: MIDODRINE 5 MG TABLET PO SCH ×3 (08:53→23:27)
[2019-12-13] MEDS: SODIUM CHLORIDE FLUSH 10ML SYR IVF SCH ×2 (08:53→23:25)
[2019-12-13] MEDS: HYDROmorphone 2 MG/ML, 1ML IVPush PRN (10:00)
[2019-12-13 14:10] VITALS: BP 120/74
[2019-12-13 17:03] VITALS: BP 110/74
[2019-12-13 17:55] VITALS: BP 109/76
[2019-12-13] MEDS ORDERED: CATHFLO-ALTEPLASE 2 MG/2 ML CATHFLUSH ONE (20:00)
[2019-12-13 20:33] VITALS: BP 95/60
[2019-12-13] MEDS: TRAZODONE 100MG TABLET PO SCH (23:26)
[2019-12-14] MEDS: MEROPENEM 1 GM in SODIUM CHLORIDE 0.9% 100 ML IV SCH ×4 (02:21→21:14)
[2019-12-14 03:30] VITALS: BP 104/52
[2019-12-14] MEDS: HEPARIN 5,000 UNITS/ML, 1ML SQ SCH ×3 (06:03→22:24)
[2019-12-14 08:14] VITALS: BP 106/62
[2019-12-14] MEDS: PANTOPRAZOLE 40MG TABLET PO SCH (08:23)
[2019-12-14] MEDS: OXYcodone IR 5MG TABLET PO PRN ×3 (08:23→22:30)
[2019-12-14] MEDS: DOCUSATE 100 MG CAPSULE PO SCH ×2 (08:23→22:25)
[2019-12-14] MEDS: ONDANSETRON 2MG/ML, 2ML IVPush PRN ×2 (08:24→18:36)
[2019-12-14] MEDS: DULOXETINE 30 MG CAPSULE.DR PO SCH (08:24)
[2019-12-14] MEDS: MIDODRINE 5 MG TABLET PO SCH ×3 (08:24→22:25)
[2019-12-14] MEDS: HYDROmorphone 2 MG/ML, 1ML IV PRN ×2 (09:10→18:35)
[2019-12-14] MEDS: GABAPENTIN 300 MG CAPSULE PO SCH ×3 (09:10→22:25)
[2019-12-14] MEDS: MAGNESIUM OXIDE 400 MG TABLET PO SCH (09:10)
[2019-12-14] MEDS: BUPROPION 100 MG TABLET PO SCH ×2 (09:11→16:34)
[2019-12-14] MEDS: INSULIN LISPRO 100 UNITS/ML, PEN SQ-INSULIN SCH ×2 (09:11→23:19)
[2019-12-14] MEDS: LACTULOSE 20 GM/30 ML UDC PO SCH (09:11)
[2019-12-14] MEDS: SEVELAMER 2.4 GM POWD.PACK JT SCH ×3 (09:11→21:00)
[2019-12-14] MEDS: SODIUM CHLORIDE FLUSH 10ML SYR IVF SCH ×2 (09:11→22:30)
[2019-12-14] MEDS: ALBUMIN HUMAN 25% 100 ML IV PRN ×2 (13:12→16:13)
[2019-12-14 16:15] VITALS: BP 113/76
[2019-12-14] MEDS ORDERED: VANCOMYCIN PER PHARMACY MC PRN (18:30)
[2019-12-14] MEDS ORDERED: PHARMACY MAY ADJ FOR RENAL FX MC PRN (18:30)
[2019-12-14] MEDS ORDERED: ERTAPENEM 1 GM in SODIUM CHLORIDE 0.9% 50 ML IV SCH (18:30)
[2019-12-14] MEDS ORDERED: PHARMACOKINETIC CONSULTATION MC ONE (18:30)
[2019-12-14] MEDS ORDERED: PHARMACOKINETIC MONITORING MC PRN (18:30)
[2019-12-14] MEDS ORDERED: VANCOMYCIN 2,200 MG in SODIUM CHLORIDE 0.9% 500 ML IV ONE (19:00)
[2019-12-14 22:27] VITALS: BP 107/70
[2019-12-14] MEDS: TRAZODONE 100MG TABLET PO SCH (22:30)
[2019-12-15] MEDS: OXYcodone IR 5MG TABLET PO PRN ×2 (03:09→11:15)
[2019-12-15] MEDS: HEPARIN 5,000 UNITS/ML, 1ML SQ SCH ×3 (07:01→22:16)
[2019-12-15 07:26] LABS: MEAN CORPUSCULAR HEMOGLOBIN 28.3 pg (27.5-34.5); MEAN CORPUSCULAR HGB CONC 32.1 g/dL (33.2-36.2); MEAN CORPUSCULAR VOLUME 88.3 fL (81-97); MEAN PLATELET VOLUME 7.3 fL (7.4-10.4); PLATELET COUNT 258 x10^3/uL (130-400); RED CELL DISTRIBUTION WIDTH 16.4 % (9.4-14.8)
[2019-12-15 07:30] VITALS: BP 98/66
[2019-12-15 07:32] LABS: ALANINE AMINOTRANSFERASE 9 U/L (12-78); ALBUMIN 2.5 g/dL (3.4-5.0); ANION GAP 6 mmol/L (5-15); CALCIUM 10.2 mg/dL (8.5-10.1); CHLORIDE 100 mmol/L (98-107); CREATININE 1.74 mg/dL (0.7-1.3)
[2019-12-15 07:35] LABS: ALKALINE PHOSPHATASE 93 U/L (45-117); BILIRUBIN,TOTAL 0.3 mg/dL (0.2-1.0); TOTAL PROTEIN 7.1 g/dL (6.4-8.2)
[2019-12-15 08:23] LABS: MD SCAN
[2019-12-15 08:24] LABS: BASOPHILS # (AUTO) 0.03 x10^3/uL (0-0.1); BASOPHILS % (AUTO) 0 % (0-1); EOSINOPHILS # (AUTO) 0.68 x10^3/uL (0-0.4); EOSINOPHILS % (AUTO) 6 % (1-7); LYMPHOCYTES # (AUTO) 1.13 x10^3/uL (1-3.4); LYMPHOCYTES % (AUTO) 10 % (22-44); MONOCYTES # (AUTO) 0.77 x10^3/uL (0.2-0.8); MONOCYTES % (AUTO) 7 % (2-9); NEUTROPHILS # (AUTO) 8.98 x10^3/uL (1.8-6.8); NEUTROPHILS % (AUTO) 78 % (42-75)
[2019-12-15] MEDS: SODIUM CHLORIDE FLUSH 10ML SYR IVF SCH ×2 (08:27→22:18)
[2019-12-15] MEDS: BUPROPION 100 MG TABLET PO SCH ×2 (08:27→13:07)
[2019-12-15] MEDS: SEVELAMER 2.4 GM POWD.PACK JT SCH (08:27)
[2019-12-15] MEDS: PANTOPRAZOLE 40MG TABLET PO SCH (08:30)
[2019-12-15] MEDS: DOCUSATE 100 MG CAPSULE PO SCH ×2 (08:30→22:16)
[2019-12-15] MEDS: DULOXETINE 30 MG CAPSULE.DR PO SCH (08:30)
[2019-12-15] MEDS: GABAPENTIN 300 MG CAPSULE PO SCH ×3 (08:30→22:16)
[2019-12-15] MEDS: MIDODRINE 5 MG TABLET PO SCH ×3 (08:30→21:55)
[2019-12-15] MEDS: LACTULOSE 20 GM/30 ML UDC PO SCH (08:30)
[2019-12-15] MEDS: MAGNESIUM OXIDE 400 MG TABLET PO SCH (08:30)
[2019-12-15] MEDS: INSULIN LISPRO 100 UNITS/ML, PEN SQ-INSULIN SCH ×2 (08:36→21:00)
[2019-12-15] MEDS: HYDROmorphone 2 MG/ML, 1ML IV PRN ×4 (08:36→17:05)
[2019-12-15] MEDS: FENTANYL REMOVE PATCH NOTE XX SCH (11:15)
[2019-12-15] MEDS: FENTANYL 100 MCG PATCH TD SCH (11:15)
[2019-12-15] MEDS: SEVELAMER CARBONATE 800MG TAB PO SCH ×2 (12:30→17:06)
[2019-12-15 13:24] VITALS: BP 134/82
[2019-12-15] MEDS ORDERED: VANCOMYCIN 2,500 MG in SODIUM CHLORIDE 0.9% 500 ML IV SCH (15:00)
[2019-12-15] MEDS: ERTAPENEM 0.5 GM in SODIUM CHLORIDE 0.9% 50 ML IVPB SCH (18:36)
[2019-12-15 21:55] VITALS: BP 115/77
[2019-12-15] MEDS: TRAZODONE 100MG TABLET PO SCH (22:16)
[2019-12-15] MEDS: BACLOFEN 10 MG TABLET PO PRN (22:18)
[2019-12-16] MEDS: HEPARIN 5,000 UNITS/ML, 1ML SQ SCH ×3 (05:37→22:00)
[2019-12-16] MEDS: OXYcodone IR 5MG TABLET PO PRN ×3 (05:37→20:10)
[2019-12-16] MEDS: INSULIN LISPRO 100 UNITS/ML, PEN SQ-INSULIN SCH (07:45)
[2019-12-16 07:47] VITALS: BP 114/78
[2019-12-16] MEDS: BUPROPION 100 MG TABLET PO SCH ×2 (07:48→12:00)
[2019-12-16] MEDS: PANTOPRAZOLE 40MG TABLET PO SCH (07:48)
[2019-12-16] MEDS: DOCUSATE 100 MG CAPSULE PO SCH (07:48)
[2019-12-16] MEDS: DULOXETINE 30 MG CAPSULE.DR PO SCH (07:48)
[2019-12-16] MEDS: LACTULOSE 20 GM/30 ML UDC PO SCH (07:48)
[2019-12-16] MEDS: SEVELAMER CARBONATE 800MG TAB PO SCH ×3 (07:48→17:13)
[2019-12-16] MEDS: MAGNESIUM OXIDE 400 MG TABLET PO SCH (07:48)
[2019-12-16] MEDS: GABAPENTIN 300 MG CAPSULE PO SCH ×2 (07:48→17:13)
[2019-12-16] MEDS: MIDODRINE 5 MG TABLET PO SCH ×2 (07:49→17:14)
[2019-12-16] MEDS: SODIUM CHLORIDE FLUSH 10ML SYR IVF SCH (08:26)
[2019-12-16] MEDS: ONDANSETRON 2MG/ML, 2ML IVPush PRN (08:26)
[2019-12-16] MEDS: HYDROmorphone 2 MG/ML, 1ML IV PRN ×3 (08:27→17:13)
[2019-12-16 12:28] VITALS: BP 131/83
[2019-12-16 17:12] VITALS: BP 110/74
[2019-12-16 18:02] LABS: BASOPHILS # (AUTO) 0.02 x10^3/uL (0-0.1); BASOPHILS % (AUTO) 0 % (0-1); EOSINOPHILS # (AUTO) 0.47 x10^3/uL (0-0.4); EOSINOPHILS % (AUTO) 4 % (1-7); LYMPHOCYTES # (AUTO) 1.04 x10^3/uL (1-3.4); LYMPHOCYTES % (AUTO) 8 % (22-44); MD NO; MEAN CORPUSCULAR HEMOGLOBIN 27.8 pg (27.5-34.5); MEAN CORPUSCULAR HGB CONC 31.4 g/dL (33.2-36.2); MEAN CORPUSCULAR VOLUME 88.5 fL (81-97); MEAN PLATELET VOLUME 7.6 fL (7.4-10.4); MONOCYTES # (AUTO) 0.69 x10^3/uL (0.2-0.8); MONOCYTES % (AUTO) 6 % (2-9); NEUTROPHILS # (AUTO) 10.08 x10^3/uL (1.8-6.8); NEUTROPHILS % (AUTO) 82 % (42-75); PLATELET COUNT 267 x10^3/uL (130-400); RED BLOOD COUNT 2.83 x10^6/uL (4.38-5.82)
[2019-12-16] MEDS: BACLOFEN 10 MG TABLET PO PRN (20:34)
[2019-12-16] MEDS: LORazepam 1MG TABLET PO PRN (20:34)
[2019-12-16] MEDS: TRAZODONE 100MG TABLET PO SCH (21:00)
[2019-12-16 21:50] VITALS: BP 110/71
[2019-12-17 02:10] VITALS: BP 108/79
[2019-12-17] MEDS: GABAPENTIN 300 MG CAPSULE PO SCH ×4 (02:44→21:19)
[2019-12-17] MEDS: DOCUSATE 100 MG CAPSULE PO SCH ×3 (02:44→21:19)
[2019-12-17] MEDS: MIDODRINE 5 MG TABLET PO SCH ×4 (02:45→21:00)
[2019-12-17] MEDS: SODIUM CHLORIDE FLUSH 10ML SYR IVF SCH ×3 (02:45→21:21)
[2019-12-17] MEDS: LORazepam 1MG TABLET PO PRN ×2 (02:46→19:36)
[2019-12-17] MEDS: OXYcodone IR 5MG TABLET PO PRN ×5 (02:46→23:38)
[2019-12-17] MEDS: INSULIN LISPRO 100 UNITS/ML, PEN SQ-INSULIN SCH ×3 (03:00→21:00)
[2019-12-17] MEDS: ERTAPENEM 0.5 GM in SODIUM CHLORIDE 0.9% 50 ML IVPB SCH (03:35)
[2019-12-17] MEDS: VANCOMYCIN 2,500 MG in SODIUM CHLORIDE 0.9% 500 ML IV SCH (04:25)
[2019-12-17] MEDS: HEPARIN 5,000 UNITS/ML, 1ML SQ SCH ×3 (07:11→22:28)
[2019-12-17 07:52] VITALS: BP 114/79
[2019-12-17 08:55] LABS: BASOPHILS # (AUTO) 0.03 x10^3/uL (0-0.1); BASOPHILS % (AUTO) 0 % (0-1); EOSINOPHILS # (AUTO) 0.51 x10^3/uL (0-0.4); EOSINOPHILS % (AUTO) 4 % (1-7); LYMPHOCYTES # (AUTO) 1.21 x10^3/uL (1-3.4); LYMPHOCYTES % (AUTO) 10 % (22-44); MD NO; MEAN CORPUSCULAR HEMOGLOBIN 28.1 pg (27.5-34.5); MEAN CORPUSCULAR HGB CONC 31.7 g/dL (33.2-36.2); MEAN CORPUSCULAR VOLUME 88.4 fL (81-97); MEAN PLATELET VOLUME 7.4 fL (7.4-10.4); MONOCYTES # (AUTO) 0.78 x10^3/uL (0.2-0.8); MONOCYTES % (AUTO) 7 % (2-9); NEUTROPHILS # (AUTO) 9.24 x10^3/uL (1.8-6.8); NEUTROPHILS % (AUTO) 79 % (42-75); PLATELET COUNT 256 x10^3/uL (130-400); RED CELL DISTRIBUTION WIDTH 15.8 % (9.4-14.8)
[2019-12-17 08:57] LABS: ANION GAP 5 mmol/L (5-15); CALCIUM 10.1 mg/dL (8.5-10.1); CHLORIDE 100 mmol/L (98-107); CREATININE 1.28 mg/dL (0.7-1.3)
[2019-12-17] MEDS: ONDANSETRON 2MG/ML, 2ML IVPush PRN (09:25)
[2019-12-17] MEDS: PANTOPRAZOLE 40MG TABLET PO SCH (09:26)
[2019-12-17] MEDS: BUPROPION 100 MG TABLET PO SCH ×2 (09:27→12:51)
[2019-12-17] MEDS: MAGNESIUM OXIDE 400 MG TABLET PO SCH (09:27)
[2019-12-17] MEDS: DULOXETINE 30 MG CAPSULE.DR PO SCH (09:27)
[2019-12-17] MEDS: LACTULOSE 20 GM/30 ML UDC PO SCH (09:27)
[2019-12-17] MEDS: SEVELAMER CARBONATE 800MG TAB PO SCH ×3 (09:28→17:16)
[2019-12-17] MEDS: HYDROmorphone 2 MG/ML, 1ML IV PRN ×3 (09:30→17:19)
[2019-12-17 15:11] VITALS: BP 116/75
[2019-12-17] MEDS: TRAZODONE 100MG TABLET PO SCH (21:19)
[2019-12-17 21:24] VITALS: BP 111/75
[2019-12-17] MEDS: BACLOFEN 10 MG TABLET PO PRN (22:28)
[2019-12-18] MEDS: ERTAPENEM 0.5 GM in SODIUM CHLORIDE 0.9% 50 ML IVPB SCH (03:13)
[2019-12-18] MEDS: VANCOMYCIN 2,500 MG in SODIUM CHLORIDE 0.9% 500 ML IV SCH (04:07)
[2019-12-18 04:11] VITALS: BP 102/70
[2019-12-18] MEDS: HEPARIN 5,000 UNITS/ML, 1ML SQ SCH ×3 (06:04→22:05)
[2019-12-18 06:32] LABS: ALBUMIN 2.1 g/dL (3.4-5.0); ANION GAP 4 mmol/L (5-15); CALCIUM 10.5 mg/dL (8.5-10.1); CHLORIDE 103 mmol/L (98-107); CREATININE 1.59 mg/dL (0.7-1.3)
[2019-12-18 06:33] LABS: BASOPHILS # (AUTO) 0.09 x10^3/uL (0-0.1); BASOPHILS % (AUTO) 1 % (0-1); EOSINOPHILS % (AUTO) 4 % (1-7); LYMPHOCYTES # (AUTO) 1.42 x10^3/uL (1-3.4); LYMPHOCYTES % (AUTO) 15 % (22-44); MD NO; MEAN CORPUSCULAR HEMOGLOBIN 28.1 pg (27.5-34.5); MEAN CORPUSCULAR HGB CONC 32.1 g/dL (33.2-36.2); MEAN CORPUSCULAR VOLUME 87.6 fL (81-97); MEAN PLATELET VOLUME 7.5 fL (7.4-10.4); MONOCYTES # (AUTO) 0.75 x10^3/uL (0.2-0.8); MONOCYTES % (AUTO) 8 % (2-9); NEUTROPHILS # (AUTO) 6.84 x10^3/uL (1.8-6.8); NEUTROPHILS % (AUTO) 72 % (42-75); PLATELET COUNT 264 x10^3/uL (130-400); RED BLOOD COUNT 2.75 x10^6/uL (4.38-5.82); RED CELL DISTRIBUTION WIDTH 15.6 % (9.4-14.8)
[2019-12-18 07:45] VITALS: BP 114/72
[2019-12-18] MEDS: INSULIN LISPRO 100 UNITS/ML, PEN SQ-INSULIN SCH ×2 (07:54→21:00)
[2019-12-18] MEDS: MIDODRINE 5 MG TABLET PO SCH ×3 (07:54→20:12)
[2019-12-18] MEDS: HYDROmorphone 2 MG/ML, 1ML IV PRN ×3 (09:00→17:38)
[2019-12-18] MEDS: ONDANSETRON 2MG/ML, 2ML IVPush PRN (09:00)
[2019-12-18] MEDS: SEVELAMER CARBONATE 800MG TAB PO SCH ×3 (09:01→17:38)
[2019-12-18] MEDS: BUPROPION 100 MG TABLET PO SCH ×2 (09:01→13:09)
[2019-12-18] MEDS: DOCUSATE 100 MG CAPSULE PO SCH ×2 (09:02→22:05)
[2019-12-18] MEDS: SODIUM CHLORIDE FLUSH 10ML SYR IVF SCH ×2 (09:02→20:08)
[2019-12-18] MEDS: DULOXETINE 30 MG CAPSULE.DR PO SCH (09:03)
[2019-12-18] MEDS: OXYcodone IR 5MG TABLET PO PRN ×3 (09:03→19:58)
[2019-12-18] MEDS: GABAPENTIN 300 MG CAPSULE PO SCH ×3 (09:03→22:05)
[2019-12-18] MEDS: LACTULOSE 20 GM/30 ML UDC PO SCH (09:03)
[2019-12-18] MEDS: PANTOPRAZOLE 40MG TABLET PO SCH (09:03)
[2019-12-18] MEDS: MAGNESIUM OXIDE 400 MG TABLET PO SCH (09:03)
[2019-12-18] MEDS: FENTANYL REMOVE PATCH NOTE XX SCH (10:36)
[2019-12-18] MEDS: FENTANYL 100 MCG PATCH TD SCH (10:36)
[2019-12-18] MEDS: HYDROmorphone 2 MG/ML, 1ML IVPush PRN (10:37)
[2019-12-18 15:54] VITALS: BP 102/68
[2019-12-18] MEDS ORDERED: CATHFLO-ALTEPLASE 2 MG/2 ML CATHFLUSH ONE (19:00)
[2019-12-18 20:11] VITALS: BP 102/61
[2019-12-18] MEDS: TRAZODONE 100MG TABLET PO SCH (22:05)
[2019-12-19] MEDS: ERTAPENEM 0.5 GM in SODIUM CHLORIDE 0.9% 50 ML IVPB SCH (03:36)
[2019-12-19 04:15] VITALS: BP 120/77
[2019-12-19 04:36] LABS: BASOPHILS # (AUTO) 0.04 x10^3/uL (0-0.1); BASOPHILS % (AUTO) 0 % (0-1); EOSINOPHILS # (AUTO) 0.35 x10^3/uL (0-0.4); EOSINOPHILS % (AUTO) 3 % (1-7); LYMPHOCYTES % (AUTO) 7 % (22-44); MD NO; MEAN CORPUSCULAR HEMOGLOBIN 28.1 pg (27.5-34.5); MEAN CORPUSCULAR VOLUME 87.8 fL (81-97); MEAN PLATELET VOLUME 7.5 fL (7.4-10.4); MONOCYTES # (AUTO) 0.66 x10^3/uL (0.2-0.8); MONOCYTES % (AUTO) 6 % (2-9); NEUTROPHILS # (AUTO) 8.93 x10^3/uL (1.8-6.8); NEUTROPHILS % (AUTO) 83 % (42-75); PLATELET COUNT 260 x10^3/uL (130-400); RED BLOOD COUNT 2.87 x10^6/uL (4.38-5.82); RED CELL DISTRIBUTION WIDTH 15.4 % (9.4-14.8)
[2019-12-19 04:47] LABS: CHLORIDE 103 mmol/L (98-107)
[2019-12-19 04:54] LABS: ALBUMIN 2.2 g/dL (3.4-5.0); ANION GAP 5 mmol/L (5-15); CREATININE 1.75 mg/dL (0.7-1.3); VANCOMYCIN,RANDOM 49.7 mcg/mL
[2019-12-19] MEDS: OXYcodone IR 5MG TABLET PO PRN ×3 (05:22→14:40)
[2019-12-19] MEDS: HEPARIN 5,000 UNITS/ML, 1ML SQ SCH ×3 (05:32→21:07)
[2019-12-19 08:00] VITALS: BP 104/67
[2019-12-19] MEDS: INSULIN LISPRO 100 UNITS/ML, PEN SQ-INSULIN SCH ×2 (08:10→21:00)
[2019-12-19] MEDS: PANTOPRAZOLE 40MG TABLET PO SCH (08:10)
[2019-12-19] MEDS: ONDANSETRON 2MG/ML, 2ML IVPush PRN (08:10)
[2019-12-19] MEDS: SODIUM CHLORIDE FLUSH 10ML SYR IVF SCH ×2 (08:11→21:07)
[2019-12-19] MEDS: HYDROmorphone 2 MG/ML, 1ML IV PRN ×3 (08:54→17:57)
[2019-12-19] MEDS: SIMETHICONE 80 MG CHEW TAB PO PRN (08:55)
[2019-12-19] MEDS: DOCUSATE 100 MG CAPSULE PO SCH ×2 (08:55→21:00)
[2019-12-19] MEDS: GABAPENTIN 300 MG CAPSULE PO SCH ×3 (08:55→21:00)
[2019-12-19] MEDS: MAGNESIUM OXIDE 400 MG TABLET PO SCH (08:56)
[2019-12-19] MEDS: DULOXETINE 30 MG CAPSULE.DR PO SCH (08:56)
[2019-12-19] MEDS: BUPROPION 100 MG TABLET PO SCH ×2 (08:56→12:57)
[2019-12-19] MEDS: MIDODRINE 5 MG TABLET PO SCH ×3 (08:56→21:00)
[2019-12-19] MEDS: SEVELAMER CARBONATE 800MG TAB PO SCH ×3 (08:57→17:56)
[2019-12-19] MEDS: LACTULOSE 20 GM/30 ML UDC PO SCH (08:57)
[2019-12-19] MEDS ORDERED: PAMIDRONATE 3 MG/ML, 10ML IV SCH (10:00)
[2019-12-19] MEDS ORDERED: PAMIDRONATE 30 MG in SODIUM CHLORIDE 0.9% 250 ML IV ONE (10:30)
[2019-12-19] MEDS: DARBEPOETIN 100 MCG/ML SQ SCH (10:45)
[2019-12-19] MEDS: DARBEPOETIN 25 MCG/ML SQ SCH (10:48)
[2019-12-19] MEDS: HYDROmorphone 2 MG/ML, 1ML IVPush PRN (10:53)
[2019-12-19 15:50] VITALS: BP 123/79
[2019-12-19] MEDS ORDERED: HYDROmorphone 2 MG/ML, 1ML IVPush PRN (17:00)
[2019-12-19 20:50] VITALS: BP 117/76
[2019-12-19] MEDS: TRAZODONE 100MG TABLET PO SCH (21:00)
[2019-12-20] MEDS: ERTAPENEM 0.5 GM in SODIUM CHLORIDE 0.9% 50 ML IVPB SCH (03:23)
[2019-12-20] MEDS: HEPARIN 5,000 UNITS/ML, 1ML SQ SCH ×3 (05:46→21:56)
[2019-12-20] MEDS: OXYcodone IR 5MG TABLET PO PRN ×2 (05:49→09:36)
[2019-12-20 07:11] LABS: ALBUMIN 2.1 g/dL (3.4-5.0); ANION GAP 7 mmol/L (5-15); CALCIUM 10.6 mg/dL (8.5-10.1); CHLORIDE 102 mmol/L (98-107)
[2019-12-20 07:13] LABS: CREATININE 1.85 mg/dL (0.7-1.3)
[2019-12-20 07:59] LABS: BASOPHILS # (AUTO) 0.04 x10^3/uL (0-0.1); BASOPHILS % (AUTO) 0 % (0-1); EOSINOPHILS # (AUTO) 0.36 x10^3/uL (0-0.4); EOSINOPHILS % (AUTO) 3 % (1-7); LYMPHOCYTES # (AUTO) 1.01 x10^3/uL (1-3.4); LYMPHOCYTES % (AUTO) 9 % (22-44); MD NO; MEAN CORPUSCULAR HEMOGLOBIN 27.8 pg (27.5-34.5); MEAN CORPUSCULAR HGB CONC 31.3 g/dL (33.2-36.2); MEAN CORPUSCULAR VOLUME 88.6 fL (81-97); MEAN PLATELET VOLUME 7.6 fL (7.4-10.4); MONOCYTES # (AUTO) 0.12 x10^3/uL (0.2-0.8); MONOCYTES % (AUTO) 1 % (2-9); NEUTROPHILS # (AUTO) 9.44 x10^3/uL (1.8-6.8); NEUTROPHILS % (AUTO) 86 % (42-75); PLATELET COUNT 264 x10^3/uL (130-400); RED BLOOD COUNT 2.64 x10^6/uL (4.38-5.82); RED CELL DISTRIBUTION WIDTH 15.6 % (9.4-14.8)
[2019-12-20 08:00] VITALS: BP 100/67
[2019-12-20] MEDS: HYDROmorphone 2 MG/ML, 1ML IV PRN ×6 (08:50→18:09)
[2019-12-20] MEDS: ONDANSETRON 2MG/ML, 2ML IVPush PRN ×2 (08:50→18:01)
[2019-12-20] MEDS: MAGNESIUM OXIDE 400 MG TABLET PO SCH (08:57)
[2019-12-20] MEDS: DULOXETINE 30 MG CAPSULE.DR PO SCH (08:57)
[2019-12-20] MEDS: PANTOPRAZOLE 40MG TABLET PO SCH (08:57)
[2019-12-20] MEDS: GABAPENTIN 300 MG CAPSULE PO SCH ×3 (08:57→21:00)
[2019-12-20] MEDS: MIDODRINE 5 MG TABLET PO SCH ×3 (08:57→21:00)
[2019-12-20] MEDS: DOCUSATE 100 MG CAPSULE PO SCH ×2 (08:57→21:00)
[2019-12-20] MEDS: SODIUM CHLORIDE FLUSH 10ML SYR IVF SCH ×2 (08:57→21:55)
[2019-12-20] MEDS: LACTULOSE 20 GM/30 ML UDC PO SCH (08:58)
[2019-12-20] MEDS: SEVELAMER CARBONATE 800MG TAB PO SCH ×3 (08:58→17:27)
[2019-12-20] MEDS: BUPROPION 100 MG TABLET PO SCH ×2 (08:58→12:37)
[2019-12-20] MEDS: INSULIN LISPRO 100 UNITS/ML, PEN SQ-INSULIN SCH ×2 (09:36→21:00)
[2019-12-20 13:50] VITALS: BP 106/72
[2019-12-20 19:35] VITALS: BP 118/91
[2019-12-20] MEDS: TRAZODONE 100MG TABLET PO SCH (21:00)
[2019-12-21] MEDS: LACTULOSE 20 GM/30 ML UDC PO SCH (00:16)
[2019-12-21] MEDS: OXYcodone IR 5MG TABLET PO PRN (02:28)
[2019-12-21] MEDS: HEPARIN 5,000 UNITS/ML, 1ML SQ SCH ×3 (05:33→22:47)
[2019-12-21 06:17] LABS: ALBUMIN 1.9 g/dL (3.4-5.0); ANION GAP 6 mmol/L (5-15); CALCIUM 10.2 mg/dL (8.5-10.1); CHLORIDE 103 mmol/L (98-107)
[2019-12-21 06:22] LABS: % IRON SATURATION 11 % (20-55); IRON LEVEL 21 mcg/dL (65-175); TOTAL IRON BINDING CAPACITY 195 mcg/dL (250-450); VANCOMYCIN,RANDOM 28.6 mcg/mL
[2019-12-21] MEDS: INSULIN LISPRO 100 UNITS/ML, PEN SQ-INSULIN SCH ×2 (07:52→22:55)
[2019-12-21 08:59] VITALS: BP 107/72
[2019-12-21] MEDS ORDERED: HYDROmorphone 1 MG/ML, 1ML INJ ONE (09:02)
[2019-12-21] MEDS: SEVELAMER CARBONATE 800MG TAB PO SCH ×3 (09:19→17:39)
[2019-12-21] MEDS: SODIUM CHLORIDE FLUSH 10ML SYR IVF SCH ×2 (09:19→22:47)
[2019-12-21] MEDS: ONDANSETRON 2MG/ML, 2ML IVPush PRN ×2 (09:21→17:40)
[2019-12-21] MEDS: HYDROmorphone 2 MG/ML, 1ML IV PRN ×2 (09:21→12:38)
[2019-12-21] MEDS: GABAPENTIN 300 MG CAPSULE PO SCH ×3 (09:22→22:47)
[2019-12-21] MEDS: MAGNESIUM OXIDE 400 MG TABLET PO SCH (09:22)
[2019-12-21] MEDS: DULOXETINE 30 MG CAPSULE.DR PO SCH (09:23)
[2019-12-21] MEDS: BUPROPION 100 MG TABLET PO SCH ×2 (09:23→12:37)
[2019-12-21] MEDS: PANTOPRAZOLE 40MG TABLET PO SCH (09:23)
[2019-12-21] MEDS: MIDODRINE 5 MG TABLET PO SCH ×3 (09:23→22:50)
[2019-12-21] MEDS: DOCUSATE 100 MG CAPSULE PO SCH ×2 (09:23→22:47)
[2019-12-21] MEDS: FENTANYL 100 MCG PATCH TD SCH (10:17)
[2019-12-21] MEDS: FUROSEMIDE 40 MG TABLET PO SCH (10:18)
[2019-12-21] MEDS: FENTANYL REMOVE PATCH NOTE XX SCH (10:30)
[2019-12-21 15:17] VITALS: BP 112/73
[2019-12-21] MEDS: HYDROmorphone 1 MG/ML, 1ML INJ IV PRN (17:40)
[2019-12-21 21:55] VITALS: BP 115/76
[2019-12-21] MEDS: TRAZODONE 100MG TABLET PO SCH (22:47)
[2019-12-22] MEDS: HEPARIN 5,000 UNITS/ML, 1ML SQ SCH ×3 (06:43→23:05)
[2019-12-22 08:54] VITALS: BP 111/73
[2019-12-22] MEDS: MIDODRINE 5 MG TABLET PO SCH ×3 (08:57→23:10)
[2019-12-22] MEDS: INSULIN LISPRO 100 UNITS/ML, PEN SQ-INSULIN SCH (09:02)
[2019-12-22] MEDS: DOCUSATE 100 MG CAPSULE PO SCH ×2 (09:03→23:09)
[2019-12-22] MEDS: ONDANSETRON 2MG/ML, 2ML IVPush PRN ×2 (09:03→17:16)
[2019-12-22] MEDS: DULOXETINE 30 MG CAPSULE.DR PO SCH (09:03)
[2019-12-22] MEDS: HYDROmorphone 1 MG/ML, 1ML INJ IV PRN ×3 (09:03→17:16)
[2019-12-22] MEDS: GABAPENTIN 300 MG CAPSULE PO SCH ×3 (09:03→23:10)
[2019-12-22] MEDS: PANTOPRAZOLE 40MG TABLET PO SCH (09:03)
[2019-12-22] MEDS: BUPROPION 100 MG TABLET PO SCH ×2 (09:03→14:02)
[2019-12-22] MEDS: LACTULOSE 20 GM/30 ML UDC PO SCH (09:03)
[2019-12-22] MEDS: FUROSEMIDE 40 MG TABLET PO SCH (09:04)
[2019-12-22] MEDS: SEVELAMER CARBONATE 800MG TAB PO SCH ×3 (09:04→17:16)
[2019-12-22] MEDS: MAGNESIUM OXIDE 400 MG TABLET PO SCH (09:04)
[2019-12-22] MEDS: SODIUM CHLORIDE FLUSH 10ML SYR IVF SCH ×2 (09:04→23:11)
[2019-12-22] MEDS: HYDROmorphone 2 MG/ML, 1ML IVPush PRN (10:30)
[2019-12-22 14:00] VITALS: BP 113/74
[2019-12-22] MEDS: OXYcodone IR 5MG TABLET PO PRN (14:10)
[2019-12-22] MEDS: TRAZODONE 100MG TABLET PO SCH (21:00)
[2019-12-22 23:08] VITALS: BP_SYST 113; BP_SYST 93; BP_DIAS 62; BP_DIAS 74
[2019-12-22] MEDS: BACLOFEN 10 MG TABLET PO PRN (23:13)
[2019-12-23 03:59] VITALS: BP 103/73
[2019-12-23] MEDS: HEPARIN 5,000 UNITS/ML, 1ML SQ SCH ×3 (06:10→23:44)
[2019-12-23 07:03] LABS: CREATININE 1.91 mg/dL (0.7-1.3)
[2019-12-23 07:04] LABS: ALBUMIN 1.9 g/dL (3.4-5.0)
[2019-12-23 07:27] LABS: ANION GAP 7 mmol/L (5-15); CHLORIDE 104 mmol/L (98-107)
[2019-12-23 09:03] VITALS: BP 98/66
[2019-12-23] MEDS: PANTOPRAZOLE 40MG TABLET PO SCH (10:03)
[2019-12-23] MEDS: SEVELAMER CARBONATE 800MG TAB PO SCH ×3 (10:03→17:31)
[2019-12-23] MEDS: GABAPENTIN 300 MG CAPSULE PO SCH ×3 (10:04→23:41)
[2019-12-23] MEDS: FUROSEMIDE 20 MG TABLET PO SCH (10:04)
[2019-12-23] MEDS: MAGNESIUM OXIDE 400 MG TABLET PO SCH (10:04)
[2019-12-23] MEDS: SODIUM CHLORIDE FLUSH 10ML SYR IVF SCH ×2 (10:04→23:40)
[2019-12-23] MEDS: BUPROPION 100 MG TABLET PO SCH ×2 (10:04→14:28)
[2019-12-23] MEDS: MIDODRINE 5 MG TABLET PO SCH ×3 (10:04→23:44)
[2019-12-23] MEDS: DULOXETINE 30 MG CAPSULE.DR PO SCH (10:05)
[2019-12-23] MEDS: DOCUSATE 100 MG CAPSULE PO SCH ×2 (10:05→23:41)
[2019-12-23] MEDS: LACTULOSE 20 GM/30 ML UDC PO SCH (10:05)
[2019-12-23] MEDS: ONDANSETRON 2MG/ML, 2ML IVPush PRN ×2 (10:05→17:31)
[2019-12-23] MEDS: HYDROmorphone 1 MG/ML, 1ML INJ IV PRN ×3 (10:06→17:31)
[2019-12-23 11:17] LABS: BASOPHILS # (AUTO) 0.03 x10^3/uL (0-0.1); BASOPHILS % (AUTO) 1 % (0-1); EOSINOPHILS # (AUTO) 0.39 x10^3/uL (0-0.4); EOSINOPHILS % (AUTO) 6 % (1-7); HEMOGRAM NOTE RECHECKED; LYMPHOCYTES # (AUTO) 0.94 x10^3/uL (1-3.4); LYMPHOCYTES % (AUTO) 15 % (22-44); MD NO; MEAN CORPUSCULAR HEMOGLOBIN 27.5 pg (27.5-34.5); MEAN CORPUSCULAR HGB CONC 31.6 g/dL (33.2-36.2); MEAN CORPUSCULAR VOLUME 87.3 fL (81-97); MEAN PLATELET VOLUME 7.5 fL (7.4-10.4); MONOCYTES # (AUTO) 0.35 x10^3/uL (0.2-0.8); MONOCYTES % (AUTO) 6 % (2-9); NEUTROPHILS # (AUTO) 4.61 x10^3/uL (1.8-6.8); NEUTROPHILS % (AUTO) 73 % (42-75); PLATELET COUNT 228 x10^3/uL (130-400); RED CELL DISTRIBUTION WIDTH 15.6 % (9.4-14.8)
[2019-12-23] MEDS: OXYcodone IR 5MG TABLET PO PRN (12:11)
[2019-12-23 14:25] VITALS: BP 103/68
[2019-12-23 21:55] VITALS: BP 104/68
[2019-12-23] MEDS: TRAZODONE 100MG TABLET PO SCH (23:41)
[2019-12-23] MEDS: BACLOFEN 10 MG TABLET PO PRN (23:45)
[2019-12-24] MEDS: OXYcodone IR 5MG TABLET PO PRN ×3 (00:08→21:01)
[2019-12-24 03:43] VITALS: BP 112/60
[2019-12-24 06:32] VITALS: BP 100/67
[2019-12-24] MEDS: HEPARIN 5,000 UNITS/ML, 1ML SQ SCH ×3 (07:26→21:01)
[2019-12-24 08:28] VITALS: BP 105/67
[2019-12-24] MEDS: DULOXETINE 30 MG CAPSULE.DR PO SCH (09:35)
[2019-12-24] MEDS: FUROSEMIDE 20 MG TABLET PO SCH ×2 (09:35→17:37)
[2019-12-24] MEDS: PANTOPRAZOLE 40MG TABLET PO SCH (09:37)
[2019-12-24] MEDS: GABAPENTIN 300 MG CAPSULE PO SCH ×3 (09:37→21:00)
[2019-12-24] MEDS: MIDODRINE 5 MG TABLET PO SCH ×3 (09:37→21:00)
[2019-12-24] MEDS: BUPROPION 100 MG TABLET PO SCH ×2 (09:37→13:21)
[2019-12-24] MEDS: MAGNESIUM OXIDE 400 MG TABLET PO SCH (09:37)
[2019-12-24] MEDS: ONDANSETRON 2MG/ML, 2ML IVPush PRN (09:38)
[2019-12-24] MEDS: HYDROmorphone 1 MG/ML, 1ML INJ IV PRN ×3 (09:38→17:35)
[2019-12-24] MEDS: SEVELAMER CARBONATE 800MG TAB PO SCH ×3 (09:38→17:35)
[2019-12-24] MEDS: LACTULOSE 20 GM/30 ML UDC PO SCH (09:43)
[2019-12-24] MEDS: DOCUSATE 100 MG CAPSULE PO SCH ×2 (09:43→21:00)
[2019-12-24] MEDS: SODIUM CHLORIDE FLUSH 10ML SYR IVF SCH ×2 (09:43→21:02)
[2019-12-24] MEDS: FENTANYL 100 MCG PATCH TD SCH (11:08)
[2019-12-24] MEDS: FENTANYL REMOVE PATCH NOTE XX SCH (11:08)
[2019-12-24 15:30] VITALS: BP 111/71
[2019-12-24 17:36] VITALS: BP 100/65
[2019-12-24 20:58] VITALS: BP 106/70
[2019-12-24] MEDS: TRAZODONE 100MG TABLET PO SCH (21:00)
[2019-12-25 02:50] VITALS: BP 96/62
[2019-12-25] MEDS: HEPARIN 5,000 UNITS/ML, 1ML SQ SCH ×3 (05:16→20:45)
[2019-12-25 05:22] LABS: ALBUMIN 1.9 g/dL (3.4-5.0); ANION GAP 6 mmol/L (5-15); CALCIUM 8.1 mg/dL (8.5-10.1); CHLORIDE 107 mmol/L (98-107); CREATININE 2.05 mg/dL (0.7-1.3)
[2019-12-25] MEDS: OXYcodone IR 5MG TABLET PO PRN ×3 (05:59→22:55)
[2019-12-25 06:04] VITALS: BP 104/71
[2019-12-25] MEDS: FUROSEMIDE 20 MG TABLET PO SCH ×2 (06:19→17:50)
[2019-12-25 08:47] VITALS: BP 103/68
[2019-12-25] MEDS: SEVELAMER CARBONATE 800MG TAB PO SCH ×3 (08:48→17:32)
[2019-12-25] MEDS: ONDANSETRON 2MG/ML, 2ML IVPush PRN (08:48)
[2019-12-25] MEDS: PANTOPRAZOLE 40MG TABLET PO SCH (08:48)
[2019-12-25] MEDS: MAGNESIUM OXIDE 400 MG TABLET PO SCH (08:49)
[2019-12-25] MEDS: LACTULOSE 20 GM/30 ML UDC PO SCH (08:49)
[2019-12-25] MEDS: DOCUSATE 100 MG CAPSULE PO SCH ×2 (08:49→20:44)
[2019-12-25] MEDS: GABAPENTIN 300 MG CAPSULE PO SCH ×3 (08:49→20:45)
[2019-12-25] MEDS: DULOXETINE 30 MG CAPSULE.DR PO SCH (08:49)
[2019-12-25] MEDS: BUPROPION 100 MG TABLET PO SCH ×2 (08:50→12:36)
[2019-12-25] MEDS: HYDROmorphone 1 MG/ML, 1ML INJ IV PRN ×3 (08:50→17:31)
[2019-12-25] MEDS: SODIUM CHLORIDE FLUSH 10ML SYR IVF SCH ×2 (08:50→20:46)
[2019-12-25] MEDS: MIDODRINE 5 MG TABLET PO SCH ×3 (08:50→20:45)
[2019-12-25] MEDS: HYDROmorphone 2 MG/ML, 1ML IVPush PRN (10:22)
--- NOTE | 2019-12-25 12:10 | NUR ---
Patient able to feed himself, prefers finger foods, and is working on new goal to improve and increase stabbing with fork and scooping with spoon opportunities. Patient demoed adequate strength for tasks however reports fatigue. Encouraged rest then resume self feeding without help of nurses. Nurses are to encourage as need with verbal support and provide minimal physical assist to promote patient independence. Addendum: 12/25/19 at 1215 by Felisha Kilgore OT Amended: Links added.
[2019-12-25 16:02] VITALS: BP 98/61
[2019-12-25 17:49] VITALS: BP 120/80
[2019-12-25 20:42] VITALS: BP 102/69
[2019-12-25] MEDS: TRAZODONE 100MG TABLET PO SCH (20:45)
[2019-12-26 02:24] LABS: MICROSCOPIC INDICATED
[2019-12-26 02:45] VITALS: BP 107/70
[2019-12-26] MEDS: OXYcodone IR 5MG TABLET PO PRN ×3 (04:44→21:02)
[2019-12-26 05:07] LABS: ANION GAP 4 mmol/L (5-15); CHLORIDE 106 mmol/L (98-107)
[2019-12-26 05:09] LABS: CREATININE 2.02 mg/dL (0.7-1.3)
[2019-12-26] MEDS: FUROSEMIDE 20 MG TABLET PO SCH ×3 (06:00→16:41)
[2019-12-26] MEDS: HEPARIN 5,000 UNITS/ML, 1ML SQ SCH ×3 (06:10→21:04)
[2019-12-26 06:14] VITALS: BP 102/67
[2019-12-26] MEDS: BUPROPION 100 MG TABLET PO SCH ×3 (08:00→12:42)
[2019-12-26] MEDS: SEVELAMER CARBONATE 800MG TAB PO SCH ×3 (08:00→16:40)
[2019-12-26] MEDS: DOCUSATE 100 MG CAPSULE PO SCH ×3 (08:09→20:53)
[2019-12-26] MEDS: MIDODRINE 5 MG TABLET PO SCH ×4 (08:09→20:53)
[2019-12-26] MEDS: DULOXETINE 30 MG CAPSULE.DR PO SCH ×2 (08:10→08:59)
[2019-12-26] MEDS: PANTOPRAZOLE 40MG TABLET PO SCH ×2 (08:10→08:58)
[2019-12-26] MEDS: MAGNESIUM OXIDE 400 MG TABLET PO SCH ×2 (08:10→08:59)
[2019-12-26] MEDS: GABAPENTIN 300 MG CAPSULE PO SCH ×4 (08:10→20:53)
[2019-12-26] MEDS: SODIUM CHLORIDE FLUSH 10ML SYR IVF SCH ×2 (08:10→20:54)
[2019-12-26] MEDS: LACTULOSE 20 GM/30 ML UDC PO SCH (08:15)
[2019-12-26] MEDS ORDERED: DARBEPOETIN 100 MCG/ML SQ SCH (08:37)
[2019-12-26] MEDS ORDERED: HYDROmorphone 1 MG/ML, 1ML INJ IV PRN (11:30)
[2019-12-26] MEDS ORDERED: HYDROmorphone 2 MG/ML, 1ML IVPush PRN (11:30)
[2019-12-26 14:00] VITALS: BP 102/63
[2019-12-26] MEDS ORDERED: DARBEPOETIN 200 MCG/ML SQ SCH (15:16)
[2019-12-26] MEDS: HYDROmorphone 1 MG/ML, 1ML INJ IV PRN (16:40)
[2019-12-26] MEDS: TRAZODONE 100MG TABLET PO SCH (20:53)
[2019-12-26 20:57] VITALS: BP 110/68
[2019-12-27 01:10] VITALS: BP 105/70
[2019-12-27 05:49] LABS: ANION GAP 3 mmol/L (5-15); CHLORIDE 109 mmol/L (98-107); CREATININE 2.11 mg/dL (0.7-1.3)
[2019-12-27] MEDS: OXYcodone IR 5MG TABLET PO PRN ×4 (06:15→22:36)
[2019-12-27] MEDS: FUROSEMIDE 20 MG TABLET PO SCH ×2 (06:15→17:13)
[2019-12-27] MEDS: HEPARIN 5,000 UNITS/ML, 1ML SQ SCH ×3 (06:15→23:00)
[2019-12-27] MEDS: PHENAZOPYRIDINE 200 MG TABLET PO PRN (06:17)
[2019-12-27] MEDS: ONDANSETRON 2MG/ML, 2ML IVPush PRN (07:22)
[2019-12-27] MEDS: LACTULOSE 20 GM/30 ML UDC PO SCH ×3 (08:24→22:37)
[2019-12-27] MEDS: PANTOPRAZOLE 40MG TABLET PO SCH (08:24)
[2019-12-27] MEDS: SEVELAMER CARBONATE 800MG TAB PO SCH ×3 (08:25→17:13)
[2019-12-27] MEDS: BUPROPION 100 MG TABLET PO SCH ×2 (08:26→12:43)
[2019-12-27] MEDS: DULOXETINE 30 MG CAPSULE.DR PO SCH (08:26)
[2019-12-27] MEDS: DOCUSATE 100 MG CAPSULE PO SCH ×2 (08:26→22:36)
[2019-12-27] MEDS: GABAPENTIN 300 MG CAPSULE PO SCH ×3 (08:26→22:36)
[2019-12-27] MEDS: SIMETHICONE 80 MG CHEW TAB PO PRN (08:26)
[2019-12-27] MEDS: MAGNESIUM OXIDE 400 MG TABLET PO SCH (08:27)
[2019-12-27] MEDS: SODIUM CHLORIDE FLUSH 10ML SYR IVF SCH ×2 (08:29→21:00)
[2019-12-27] MEDS: HYDROmorphone 1 MG/ML, 1ML INJ IV PRN ×3 (08:30→17:13)
[2019-12-27 08:31] VITALS: BP 104/67
[2019-12-27] MEDS: MIDODRINE 5 MG TABLET PO SCH ×3 (08:40→23:55)
[2019-12-27] MEDS: HYDROmorphone 2 MG/ML, 1ML IVPush PRN (10:34)
[2019-12-27] MEDS: FENTANYL 100 MCG PATCH TD SCH (12:44)
[2019-12-27] MEDS: FENTANYL REMOVE PATCH NOTE XX SCH (12:44)
[2019-12-27 12:58] VITALS: BP 133/85
--- NOTE | 2019-12-27 16:19 | NUR ---
UPDATED NURSING ACTIVITY SHEET. REVIEWED WITH PATIENT IN DETAIL. NOTIFIED RN ABOUT CHANGES 1. PT UP IN A CHAIR FOR 1 MEAL A DAY. 2. PT UP WITH BED IN CHAIR POSITION 2X'S A DAY 3. UPPER AND LOWER EXTREMITY EXERCISES 3X'S A DAY. REVIEWED THE ABOVE CHANGES. PT AGREEABLE TO CHANGES. POSTED UP ON WALL. Addendum: 12/27/19 at 1621 by JOSE DE JESUS WEAVER PTA Amended: Links added.
[2019-12-27 19:42] VITALS: BP 98/63
[2019-12-27] MEDS: TRAZODONE 100MG TABLET PO SCH (22:36)
[2019-12-28 00:51] VITALS: BP 109/70
[2019-12-28] MEDS: HEPARIN 5,000 UNITS/ML, 1ML SQ SCH ×3 (05:29→23:06)
[2019-12-28] MEDS: OXYcodone IR 5MG TABLET PO PRN ×3 (05:29→19:55)
[2019-12-28] MEDS: FUROSEMIDE 20 MG TABLET PO SCH ×2 (05:29→17:11)
[2019-12-28] MEDS: SEVELAMER CARBONATE 800MG TAB PO SCH ×3 (08:00→17:10)
[2019-12-28] MEDS: PANTOPRAZOLE 40MG TABLET PO SCH (08:21)
[2019-12-28] MEDS: DOCUSATE 100 MG CAPSULE PO SCH ×2 (08:22→21:00)
[2019-12-28] MEDS: SODIUM CHLORIDE FLUSH 10ML SYR IVF SCH ×2 (08:22→19:55)
[2019-12-28] MEDS: GABAPENTIN 300 MG CAPSULE PO SCH ×3 (08:22→21:00)
[2019-12-28] MEDS: MAGNESIUM OXIDE 400 MG TABLET PO SCH (08:22)
[2019-12-28] MEDS: BUPROPION 100 MG TABLET PO SCH ×2 (08:22→12:28)
[2019-12-28] MEDS: DULOXETINE 30 MG CAPSULE.DR PO SCH (08:22)
[2019-12-28] MEDS: MIDODRINE 5 MG TABLET PO SCH ×3 (08:23→21:00)
[2019-12-28] MEDS: HYDROmorphone 1 MG/ML, 1ML INJ IV PRN ×3 (08:24→17:11)
[2019-12-28 08:43] VITALS: BP 109/78
[2019-12-28 13:54] VITALS: BP 121/78
[2019-12-28 19:58] VITALS: BP 98/65
[2019-12-28] MEDS: TRAZODONE 100MG TABLET PO SCH (21:00)
[2019-12-29] MEDS: DOCUSATE 100 MG CAPSULE PO SCH ×2 (00:34→08:17)
[2019-12-29 03:32] VITALS: BP 104/67
[2019-12-29] MEDS: HEPARIN 5,000 UNITS/ML, 1ML SQ SCH ×2 (06:34→14:19)
[2019-12-29] MEDS: OXYcodone IR 5MG TABLET PO PRN ×2 (06:35→11:12)
[2019-12-29] MEDS: FUROSEMIDE 20 MG TABLET PO SCH ×2 (06:35→18:28)
[2019-12-29 08:02] VITALS: BP 105/67
[2019-12-29] MEDS: BUPROPION 100 MG TABLET PO SCH ×2 (08:15→13:39)
[2019-12-29] MEDS: HYDROmorphone 1 MG/ML, 1ML INJ IV PRN ×2 (08:15→13:40)
[2019-12-29] MEDS: GABAPENTIN 300 MG CAPSULE PO SCH ×2 (08:15→16:30)
[2019-12-29] MEDS: PANTOPRAZOLE 40MG TABLET PO SCH (08:15)
[2019-12-29] MEDS: MIDODRINE 5 MG TABLET PO SCH ×2 (08:16→17:45)
[2019-12-29] MEDS: DULOXETINE 30 MG CAPSULE.DR PO SCH (08:16)
[2019-12-29] MEDS: MAGNESIUM OXIDE 400 MG TABLET PO SCH (08:16)
[2019-12-29] MEDS: LACTULOSE 20 GM/30 ML UDC PO SCH (08:17)
[2019-12-29] MEDS: SODIUM CHLORIDE FLUSH 10ML SYR IVF SCH (08:17)
[2019-12-29] MEDS: SEVELAMER CARBONATE 800MG TAB PO SCH ×3 (08:18→17:45)
[2019-12-29] MEDS: ONDANSETRON 2MG/ML, 2ML IVPush PRN (11:04)
[2019-12-29 13:48] VITALS: BP 128/83
[2019-12-29] MEDS: HYDROmorphone 2 MG/ML, 1ML IVPush PRN (14:19)
[2019-12-29 17:41] VITALS: BP 102/64
[2019-12-29 20:43] VITALS: BP_SYST 110; BP_DIAS 74; BP_DIAS 76
[2019-12-30 00:30] VITALS: BP 104/67
[2019-12-30] MEDS: GABAPENTIN 300 MG CAPSULE PO SCH ×4 (00:31→23:08)
[2019-12-30] MEDS: TRAZODONE 100MG TABLET PO SCH ×2 (00:31→23:08)
[2019-12-30] MEDS: ONDANSETRON 2MG/ML, 2ML IVPush PRN ×2 (00:32→08:18)
[2019-12-30] MEDS: MIDODRINE 5 MG TABLET PO SCH ×4 (00:32→23:08)
[2019-12-30] MEDS: SODIUM CHLORIDE FLUSH 10ML SYR IVF SCH ×3 (00:32→23:09)
[2019-12-30] MEDS: HEPARIN 5,000 UNITS/ML, 1ML SQ SCH ×3 (00:32→17:00)
[2019-12-30] MEDS: DOCUSATE 100 MG CAPSULE PO SCH ×3 (00:32→23:09)
[2019-12-30] MEDS: HYDROmorphone 1 MG/ML, 1ML INJ IV PRN ×4 (00:33→17:00)
[2019-12-30 06:50] LABS: ANION GAP 3 mmol/L (5-15); CALCIUM 8.6 mg/dL (8.5-10.1); CHLORIDE 110 mmol/L (98-107); CREATININE 2.11 mg/dL (0.7-1.3)
[2019-12-30 08:22] VITALS: BP 109/74
[2019-12-30] MEDS: PANTOPRAZOLE 40MG TABLET PO SCH (08:26)
[2019-12-30] MEDS: MAGNESIUM OXIDE 400 MG TABLET PO SCH (08:26)
[2019-12-30] MEDS: SEVELAMER CARBONATE 800MG TAB PO SCH ×3 (08:26→17:00)
[2019-12-30] MEDS: BUPROPION 100 MG TABLET PO SCH ×2 (08:27→12:20)
[2019-12-30] MEDS: FUROSEMIDE 20 MG TABLET PO SCH ×2 (08:27→23:08)
[2019-12-30] MEDS: DULOXETINE 30 MG CAPSULE.DR PO SCH (08:27)
[2019-12-30] MEDS: LACTULOSE 20 GM/30 ML UDC PO SCH (08:28)
[2019-12-30] MEDS: FENTANYL 100 MCG PATCH TD SCH (11:15)
[2019-12-30] MEDS: FENTANYL REMOVE PATCH NOTE XX SCH (11:15)
[2019-12-30] MEDS: OXYcodone IR 5MG TABLET PO PRN (11:25)
[2019-12-30 16:21] VITALS: BP 109/72
[2019-12-30 19:08] VITALS: BP 97/64
[2019-12-31] MEDS: HEPARIN 5,000 UNITS/ML, 1ML SQ SCH ×3 (00:49→16:26)
[2019-12-31 06:42] LABS: BASOPHILS # (AUTO) 0.05 x10^3/uL (0-0.1); BASOPHILS % (AUTO) 1 % (0-1); EOSINOPHILS # (AUTO) 0.33 x10^3/uL (0-0.4); EOSINOPHILS % (AUTO) 4 % (1-7); LYMPHOCYTES # (AUTO) 1.32 x10^3/uL (1-3.4); LYMPHOCYTES % (AUTO) 17 % (22-44); MD NO; MEAN CORPUSCULAR HEMOGLOBIN 28.1 pg (27.5-34.5); MEAN CORPUSCULAR HGB CONC 31.5 g/dL (33.2-36.2); MEAN CORPUSCULAR VOLUME 89.1 fL (81-97); MEAN PLATELET VOLUME 7.8 fL (7.4-10.4); MONOCYTES # (AUTO) 0.57 x10^3/uL (0.2-0.8); MONOCYTES % (AUTO) 8 % (2-9); NEUTROPHILS # (AUTO) 5.32 x10^3/uL (1.8-6.8); NEUTROPHILS % (AUTO) 70 % (42-75); PLATELET COUNT 234 x10^3/uL (130-400); RED BLOOD COUNT 2.68 x10^6/uL (4.38-5.82); RED CELL DISTRIBUTION WIDTH 17.2 % (9.4-14.8)
[2019-12-31 06:53] LABS: ANION GAP 5 mmol/L (5-15); CALCIUM 8.8 mg/dL (8.5-10.1); CHLORIDE 111 mmol/L (98-107); CREATININE 2.13 mg/dL (0.7-1.3)
[2019-12-31] MEDS: SEVELAMER CARBONATE 800MG TAB PO SCH ×3 (08:00→17:00)
[2019-12-31] MEDS: MIDODRINE 5 MG TABLET PO SCH ×3 (09:00→21:00)
[2019-12-31] MEDS: FUROSEMIDE 20 MG TABLET PO SCH ×2 (09:08→17:18)
[2019-12-31] MEDS: DOCUSATE 100 MG CAPSULE PO SCH ×2 (09:08→21:11)
[2019-12-31] MEDS: PANTOPRAZOLE 40MG TABLET PO SCH (09:08)
[2019-12-31] MEDS: MAGNESIUM OXIDE 400 MG TABLET PO SCH (09:09)
[2019-12-31] MEDS: BUPROPION 100 MG TABLET PO SCH ×2 (09:09→12:11)
[2019-12-31] MEDS: DULOXETINE 30 MG CAPSULE.DR PO SCH (09:09)
[2019-12-31] MEDS: GABAPENTIN 300 MG CAPSULE PO SCH ×3 (09:09→21:12)
[2019-12-31] MEDS: ONDANSETRON 2MG/ML, 2ML IVPush PRN (09:12)
[2019-12-31] MEDS: LACTULOSE 20 GM/30 ML UDC PO SCH (09:13)
[2019-12-31] MEDS: HYDROmorphone 1 MG/ML, 1ML INJ IV PRN ×3 (09:13→17:13)
[2019-12-31] MEDS: SODIUM CHLORIDE FLUSH 10ML SYR IVF SCH ×2 (09:14→21:10)
[2019-12-31 09:38] VITALS: BP 112/76
[2019-12-31 15:00] VITALS: BP 103/70
[2019-12-31] MEDS: OXYcodone IR 5MG TABLET PO PRN ×2 (15:15→21:13)
[2019-12-31] MEDS: TRAZODONE 100MG TABLET PO SCH (21:12)
[2019-12-31 23:25] VITALS: BP 113/76
[2020-01-01] MEDS: HEPARIN 5,000 UNITS/ML, 1ML SQ SCH ×3 (00:33→16:00)
[2020-01-01 05:28] VITALS: BP 104/69
[2020-01-01 05:41] LABS: ANION GAP 3 mmol/L (5-15); CALCIUM 8.9 mg/dL (8.5-10.1); CHLORIDE 112 mmol/L (98-107)
[2020-01-01 05:43] LABS: CREATININE 2.16 mg/dL (0.7-1.3)
[2020-01-01] MEDS: FUROSEMIDE 20 MG TABLET PO SCH ×2 (05:50→16:15)
[2020-01-01] MEDS: SEVELAMER CARBONATE 800MG TAB PO SCH ×3 (08:00→17:00)
[2020-01-01] MEDS: BUPROPION 100 MG TABLET PO SCH ×2 (09:23→15:59)
[2020-01-01] MEDS: PANTOPRAZOLE 40MG TABLET PO SCH (09:24)
[2020-01-01] MEDS: MAGNESIUM OXIDE 400 MG TABLET PO SCH (09:24)
[2020-01-01] MEDS: DULOXETINE 30 MG CAPSULE.DR PO SCH (09:24)
[2020-01-01] MEDS: GABAPENTIN 300 MG CAPSULE PO SCH ×3 (09:24→21:14)
[2020-01-01] MEDS: SODIUM CHLORIDE FLUSH 10ML SYR IVF SCH ×2 (09:24→21:15)
[2020-01-01] MEDS: MIDODRINE 5 MG TABLET PO SCH ×3 (09:24→21:17)
[2020-01-01 09:41] VITALS: BP 134/76
[2020-01-01] MEDS: HYDROmorphone 2 MG/ML, 1ML IVPush PRN (11:21)
[2020-01-01] MEDS ORDERED: LIDOCAINE 1%, 20ML ONE (14:41)
[2020-01-01] MEDS ORDERED: FENTANYL PF 100 MCG/2ML ONE (14:45)
[2020-01-01] MEDS ORDERED: FLUMAZENIL 0.1 MG/1 ML, 5ML ONE (14:45)
[2020-01-01] MEDS ORDERED: MIDAZOLAM 1 MG/ML, 5ML ONE (14:45)
[2020-01-01] MEDS ORDERED: NALOXONE 1 MG/ML, 2ML ONE (14:45)
[2020-01-01 15:54] VITALS: BP 117/68
[2020-01-01] MEDS: DOCUSATE 100 MG CAPSULE PO SCH ×2 (15:59→21:14)
[2020-01-01] MEDS: LACTULOSE 20 GM/30 ML UDC PO SCH (15:59)
[2020-01-01] MEDS: HYDROmorphone 1 MG/ML, 1ML INJ IV PRN ×2 (16:15→21:40)
[2020-01-01] MEDS: OXYcodone IR 5MG TABLET PO PRN (19:38)
[2020-01-01 21:00] VITALS: BP 106/78
[2020-01-01] MEDS: TRAZODONE 100MG TABLET PO SCH (21:14)
[2020-01-02] MEDS: HEPARIN 5,000 UNITS/ML, 1ML SQ SCH ×4 (00:14→23:25)
[2020-01-02 03:59] VITALS: BP 108/69
[2020-01-02] MEDS: FUROSEMIDE 20 MG TABLET PO SCH ×2 (06:07→18:30)
[2020-01-02 07:25] VITALS: BP 118/80
[2020-01-02] MEDS: MIDODRINE 5 MG TABLET PO SCH ×3 (09:00→21:35)
[2020-01-02] MEDS: SODIUM CHLORIDE FLUSH 10ML SYR IVF SCH ×2 (09:00→21:37)
[2020-01-02] MEDS: PANTOPRAZOLE 40MG TABLET PO SCH (09:10)
[2020-01-02] MEDS: BUPROPION 100 MG TABLET PO SCH ×2 (09:11→12:39)
[2020-01-02] MEDS: SEVELAMER CARBONATE 800MG TAB PO SCH ×3 (09:12→17:04)
[2020-01-02] MEDS: DULOXETINE 30 MG CAPSULE.DR PO SCH (09:13)
[2020-01-02] MEDS: GABAPENTIN 300 MG CAPSULE PO SCH ×3 (09:13→21:34)
[2020-01-02] MEDS: DOCUSATE 100 MG CAPSULE PO SCH ×2 (09:14→21:00)
[2020-01-02] MEDS: MAGNESIUM OXIDE 400 MG TABLET PO SCH (09:14)
[2020-01-02] MEDS: ONDANSETRON 2MG/ML, 2ML IVPush PRN (09:15)
[2020-01-02] MEDS: LACTULOSE 20 GM/30 ML UDC PO SCH (09:15)
[2020-01-02] MEDS: HYDROmorphone 1 MG/ML, 1ML INJ IV PRN ×3 (09:42→17:06)
[2020-01-02] MEDS: FENTANYL REMOVE PATCH NOTE XX SCH (10:00)
[2020-01-02] MEDS: FENTANYL 100 MCG PATCH TD SCH (11:47)
[2020-01-02] MEDS: OXYcodone IR 5MG TABLET PO PRN ×2 (12:13→21:35)
[2020-01-02 12:38] VITALS: BP 124/77
[2020-01-02] MEDS: DARBEPOETIN 200 MCG/ML SQ SCH (16:02)
[2020-01-02 16:27] LABS: MICROSCOPIC INDICATED
[2020-01-02 21:32] VITALS: BP 100/62
[2020-01-02] MEDS: TRAZODONE 100MG TABLET PO SCH (21:35)
[2020-01-02 21:36] VITALS: BP 105/65
[2020-01-03 02:03] VITALS: BP 96/64
[2020-01-03 05:30] VITALS: BP 106/71
[2020-01-03] MEDS: FUROSEMIDE 20 MG TABLET PO SCH ×2 (05:51→17:38)
[2020-01-03] MEDS: PANTOPRAZOLE 40MG TABLET PO SCH (08:33)
[2020-01-03] MEDS: MAGNESIUM OXIDE 400 MG TABLET PO SCH (08:33)
[2020-01-03] MEDS: BUPROPION 100 MG TABLET PO SCH ×2 (08:33→11:53)
[2020-01-03] MEDS: SEVELAMER CARBONATE 800MG TAB PO SCH ×3 (08:33→17:38)
[2020-01-03] MEDS: GABAPENTIN 300 MG CAPSULE PO SCH ×3 (08:33→21:37)
[2020-01-03] MEDS: DOCUSATE 100 MG CAPSULE PO SCH ×2 (08:34→21:37)
[2020-01-03] MEDS: HEPARIN 5,000 UNITS/ML, 1ML SQ SCH ×2 (08:34→17:39)
[2020-01-03] MEDS: DULOXETINE 30 MG CAPSULE.DR PO SCH (08:34)
[2020-01-03] MEDS: LACTULOSE 20 GM/30 ML UDC PO SCH ×2 (08:34→08:46)
[2020-01-03] MEDS: ONDANSETRON 2MG/ML, 2ML IVPush PRN (08:34)
[2020-01-03] MEDS: HYDROmorphone 1 MG/ML, 1ML INJ IV PRN ×2 (08:35→17:39)
[2020-01-03 08:37] VITALS: BP 123/80
[2020-01-03] MEDS: MIDODRINE 5 MG TABLET PO SCH ×3 (08:38→21:37)
[2020-01-03] MEDS: SODIUM CHLORIDE FLUSH 10ML SYR IVF SCH ×2 (08:39→21:37)
[2020-01-03] MEDS: HYDROmorphone 2 MG/ML, 1ML IVPush PRN ×2 (11:29→13:22)
[2020-01-03 15:17] VITALS: BP 110/74
[2020-01-03 17:41] VITALS: BP 106/64
[2020-01-03] MEDS: OXYcodone IR 5MG TABLET PO PRN (19:41)
[2020-01-03 21:30] VITALS: BP 109/69
[2020-01-03] MEDS: TRAZODONE 100MG TABLET PO SCH (21:37)
[2020-01-04] MEDS: HEPARIN 5,000 UNITS/ML, 1ML SQ SCH ×3 (01:03→17:01)
[2020-01-04 05:14] VITALS: BP 105/67
[2020-01-04 05:46] LABS: ALANINE AMINOTRANSFERASE 8 U/L (12-78); ALBUMIN 2.1 g/dL (3.4-5.0); ANION GAP 3 mmol/L (5-15); CHLORIDE 110 mmol/L (98-107)
[2020-01-04 05:48] LABS: ALKALINE PHOSPHATASE 123 U/L (45-117); BASOPHILS # (AUTO) 0.03 x10^3/uL (0-0.1); BASOPHILS % (AUTO) 0 % (0-1); BILIRUBIN,TOTAL 0.2 mg/dL (0.2-1.0); EOSINOPHILS # (AUTO) 0.37 x10^3/uL (0-0.4); EOSINOPHILS % (AUTO) 4 % (1-7); LYMPHOCYTES # (AUTO) 1.04 x10^3/uL (1-3.4); LYMPHOCYTES % (AUTO) 12 % (22-44); MD NO; MEAN CORPUSCULAR HEMOGLOBIN 28.6 pg (27.5-34.5); MEAN CORPUSCULAR HGB CONC 32.4 g/dL (33.2-36.2); MEAN CORPUSCULAR VOLUME 88.5 fL (81-97); MEAN PLATELET VOLUME 7.7 fL (7.4-10.4); MONOCYTES % (AUTO) 6 % (2-9); NEUTROPHILS # (AUTO) 6.44 x10^3/uL (1.8-6.8); NEUTROPHILS % (AUTO) 77 % (42-75); PLATELET COUNT 252 x10^3/uL (130-400); RED BLOOD COUNT 2.71 x10^6/uL (4.38-5.82); RED CELL DISTRIBUTION WIDTH 17.4 % (9.4-14.8); TOTAL PROTEIN 6.6 g/dL (6.4-8.2)
[2020-01-04] MEDS: FUROSEMIDE 20 MG TABLET PO SCH ×2 (06:21→17:01)
[2020-01-04] MEDS: PANTOPRAZOLE 40MG TABLET PO SCH (08:17)
[2020-01-04] MEDS: SEVELAMER CARBONATE 800MG TAB PO SCH ×3 (08:17→17:01)
[2020-01-04] MEDS: BUPROPION 100 MG TABLET PO SCH ×2 (08:18→12:11)
[2020-01-04] MEDS: SODIUM CHLORIDE FLUSH 10ML SYR IVF SCH (08:19)
[2020-01-04] MEDS: DOCUSATE 100 MG CAPSULE PO SCH ×2 (08:19→23:59)
[2020-01-04] MEDS: MIDODRINE 5 MG TABLET PO SCH ×3 (08:20→21:00)
[2020-01-04] MEDS: HYDROmorphone 1 MG/ML, 1ML INJ IV PRN ×3 (08:20→17:09)
[2020-01-04] MEDS: DULOXETINE 30 MG CAPSULE.DR PO SCH (08:20)
[2020-01-04] MEDS: LACTULOSE 20 GM/30 ML UDC PO SCH (08:20)
[2020-01-04] MEDS: GABAPENTIN 300 MG CAPSULE PO SCH ×3 (08:20→23:59)
[2020-01-04] MEDS: MAGNESIUM OXIDE 400 MG TABLET PO SCH (08:20)
[2020-01-04 08:21] VITALS: BP 114/75
[2020-01-04] MEDS: OXYcodone IR 5MG TABLET PO PRN (12:12)
[2020-01-04 13:46] VITALS: BP 141/81
[2020-01-04 21:05] VITALS: BP 116/74
[2020-01-04] MEDS: TRAZODONE 100MG TABLET PO SCH (23:59)
[2020-01-05] MEDS: HEPARIN 5,000 UNITS/ML, 1ML SQ SCH ×3 (01:54→17:31)
[2020-01-05 02:13] VITALS: BP 115/76
[2020-01-05 06:36] VITALS: BP 105/68
[2020-01-05] MEDS: FUROSEMIDE 20 MG TABLET PO SCH ×2 (07:28→17:09)
[2020-01-05] MEDS: SODIUM CHLORIDE FLUSH 10ML SYR IVF SCH ×3 (08:26→21:00)
[2020-01-05] MEDS: BUPROPION 100 MG TABLET PO SCH ×2 (08:26→11:50)
[2020-01-05] MEDS: SEVELAMER CARBONATE 800MG TAB PO SCH ×3 (08:26→17:09)
[2020-01-05] MEDS: PANTOPRAZOLE 40MG TABLET PO SCH (08:26)
[2020-01-05] MEDS: DOCUSATE 100 MG CAPSULE PO SCH ×2 (08:27→21:53)
[2020-01-05] MEDS: LACTULOSE 20 GM/30 ML UDC PO SCH (08:27)
[2020-01-05] MEDS: GABAPENTIN 300 MG CAPSULE PO SCH ×3 (08:27→21:54)
[2020-01-05] MEDS: SIMETHICONE 80 MG CHEW TAB PO PRN (08:27)
[2020-01-05] MEDS: MIDODRINE 5 MG TABLET PO SCH ×3 (08:27→20:52)
[2020-01-05] MEDS: DULOXETINE 30 MG CAPSULE.DR PO SCH (08:27)
[2020-01-05] MEDS: MAGNESIUM OXIDE 400 MG TABLET PO SCH (08:27)
[2020-01-05] MEDS: HYDROmorphone 1 MG/ML, 1ML INJ IV PRN ×2 (08:28→17:09)
[2020-01-05] MEDS: FENTANYL REMOVE PATCH NOTE XX SCH (09:11)
[2020-01-05] MEDS: FENTANYL 100 MCG PATCH TD SCH (09:11)
[2020-01-05] MEDS: OXYcodone IR 5MG TABLET PO PRN ×2 (10:29→19:44)
[2020-01-05] MEDS: HYDROmorphone 2 MG/ML, 1ML IVPush PRN (11:25)
[2020-01-05 16:25] VITALS: BP 121/73
[2020-01-05 20:03] VITALS: BP 130/82
[2020-01-05] MEDS: TRAZODONE 100MG TABLET PO SCH (21:54)
[2020-01-06] MEDS: HEPARIN 5,000 UNITS/ML, 1ML SQ SCH ×3 (02:08→18:00)
[2020-01-06] MEDS: FUROSEMIDE 20 MG TABLET PO SCH ×2 (05:47→18:06)
[2020-01-06 06:17] LABS: BASOPHILS # (AUTO) 0.02 x10^3/uL (0-0.1); BASOPHILS % (AUTO) 0 % (0-1); EOSINOPHILS # (AUTO) 0.34 x10^3/uL (0-0.4); EOSINOPHILS % (AUTO) 5 % (1-7); LYMPHOCYTES # (AUTO) 1.21 x10^3/uL (1-3.4); LYMPHOCYTES % (AUTO) 18 % (22-44); MD NO; MEAN CORPUSCULAR HEMOGLOBIN 28.2 pg (27.5-34.5); MEAN CORPUSCULAR VOLUME 88.3 fL (81-97); MEAN PLATELET VOLUME 7.8 fL (7.4-10.4); MONOCYTES # (AUTO) 0.53 x10^3/uL (0.2-0.8); MONOCYTES % (AUTO) 8 % (2-9); NEUTROPHILS # (AUTO) 4.68 x10^3/uL (1.8-6.8); NEUTROPHILS % (AUTO) 69 % (42-75); PLATELET COUNT 251 x10^3/uL (130-400); RED BLOOD COUNT 2.75 x10^6/uL (4.38-5.82); RED CELL DISTRIBUTION WIDTH 17.3 % (9.4-14.8)
[2020-01-06 06:19] LABS: ALANINE AMINOTRANSFERASE 9 U/L (12-78); ALBUMIN 2.1 g/dL (3.4-5.0); ANION GAP 5 mmol/L (5-15); CALCIUM 9.2 mg/dL (8.5-10.1); CHLORIDE 108 mmol/L (98-107)
[2020-01-06 06:22] LABS: ALKALINE PHOSPHATASE 116 U/L (45-117); BILIRUBIN,TOTAL 0.3 mg/dL (0.2-1.0); CREATININE 2.13 mg/dL (0.7-1.3); TOTAL PROTEIN 6.7 g/dL (6.4-8.2)
[2020-01-06 07:02] VITALS: BP 104/68
[2020-01-06] MEDS: PANTOPRAZOLE 40MG TABLET PO SCH (07:53)
[2020-01-06] MEDS: HYDROmorphone 1 MG/ML, 1ML INJ IV PRN ×3 (07:58→16:39)
[2020-01-06] MEDS: MAGNESIUM OXIDE 400 MG TABLET PO SCH (07:59)
[2020-01-06] MEDS: MIDODRINE 5 MG TABLET PO SCH ×3 (07:59→22:11)
[2020-01-06] MEDS: BUPROPION 100 MG TABLET PO SCH ×2 (07:59→12:26)
[2020-01-06] MEDS: SEVELAMER CARBONATE 800MG TAB PO SCH ×3 (08:00→16:39)
[2020-01-06] MEDS: DULOXETINE 30 MG CAPSULE.DR PO SCH (08:00)
[2020-01-06] MEDS: DOCUSATE 100 MG CAPSULE PO SCH ×2 (08:00→22:10)
[2020-01-06] MEDS: GABAPENTIN 300 MG CAPSULE PO SCH ×3 (08:00→22:11)
[2020-01-06] MEDS: SODIUM CHLORIDE FLUSH 10ML SYR IVF SCH ×2 (08:01→22:11)
[2020-01-06] MEDS: LACTULOSE 20 GM/30 ML UDC PO SCH ×2 (08:01→22:10)
[2020-01-06 12:15] VITALS: BP 127/83
[2020-01-06 16:05] VITALS: BP 120/79
[2020-01-06] MEDS: SIMETHICONE 80 MG CHEW TAB PO PRN (22:10)
[2020-01-06] MEDS: TRAZODONE 100MG TABLET PO SCH (22:11)
[2020-01-06] MEDS: OXYcodone IR 5MG TABLET PO PRN (22:42)
[2020-01-07 01:47] VITALS: BP 122/77
[2020-01-07] MEDS: HEPARIN 5,000 UNITS/ML, 1ML SQ SCH ×3 (02:30→17:18)
[2020-01-07] MEDS: HYDROmorphone 1 MG/ML, 1ML INJ IV PRN ×3 (04:05→17:18)
[2020-01-07 08:00] VITALS: BP 108/73
[2020-01-07] MEDS: PANTOPRAZOLE 40MG TABLET PO SCH (08:09)
[2020-01-07] MEDS: FUROSEMIDE 20 MG TABLET PO SCH ×2 (08:09→17:17)
[2020-01-07] MEDS: BUPROPION 100 MG TABLET PO SCH ×2 (09:32→12:18)
[2020-01-07] MEDS: MIDODRINE 5 MG TABLET PO SCH ×3 (09:33→21:00)
[2020-01-07] MEDS: MAGNESIUM OXIDE 400 MG TABLET PO SCH (09:33)
[2020-01-07] MEDS: DOCUSATE 100 MG CAPSULE PO SCH ×2 (09:33→21:28)
[2020-01-07] MEDS: GABAPENTIN 300 MG CAPSULE PO SCH ×3 (09:33→21:28)
[2020-01-07] MEDS: DULOXETINE 30 MG CAPSULE.DR PO SCH (09:33)
[2020-01-07] MEDS: SEVELAMER CARBONATE 800MG TAB PO SCH ×3 (09:33→17:17)
[2020-01-07] MEDS: SODIUM CHLORIDE FLUSH 10ML SYR IVF SCH ×2 (09:35→21:32)
[2020-01-07] MEDS: OXYcodone IR 5MG TABLET PO PRN ×3 (12:18→21:31)
[2020-01-07 15:45] VITALS: BP 117/75
[2020-01-07] MEDS: TRAZODONE 100MG TABLET PO SCH (21:27)
[2020-01-07 21:35] VITALS: BP 112/72
[2020-01-08] MEDS: HEPARIN 5,000 UNITS/ML, 1ML SQ SCH ×3 (02:33→17:27)
[2020-01-08 04:45] VITALS: BP 114/64
[2020-01-08 04:47] LABS: ANION GAP 6 mmol/L (5-15); CALCIUM 8.9 mg/dL (8.5-10.1); CHLORIDE 108 mmol/L (98-107)
[2020-01-08] MEDS: FUROSEMIDE 20 MG TABLET PO SCH ×2 (05:48→17:27)
[2020-01-08 08:59] VITALS: BP 103/67
[2020-01-08] MEDS: BUPROPION 100 MG TABLET PO SCH ×2 (09:01→12:39)
[2020-01-08] MEDS: SEVELAMER CARBONATE 800MG TAB PO SCH ×3 (09:01→17:26)
[2020-01-08] MEDS: PANTOPRAZOLE 40MG TABLET PO SCH (09:01)
[2020-01-08] MEDS: MIDODRINE 5 MG TABLET PO SCH ×3 (09:02→20:57)
[2020-01-08] MEDS: DOCUSATE 100 MG CAPSULE PO SCH ×2 (09:02→20:54)
[2020-01-08] MEDS: DULOXETINE 30 MG CAPSULE.DR PO SCH (09:02)
[2020-01-08] MEDS: MAGNESIUM OXIDE 400 MG TABLET PO SCH (09:02)
[2020-01-08] MEDS: SODIUM CHLORIDE FLUSH 10ML SYR IVF SCH ×2 (09:02→20:54)
[2020-01-08] MEDS: GABAPENTIN 300 MG CAPSULE PO SCH ×3 (09:02→20:54)
[2020-01-08] MEDS: LACTULOSE 20 GM/30 ML UDC PO SCH (09:03)
[2020-01-08] MEDS: HYDROmorphone 1 MG/ML, 1ML INJ IV PRN ×3 (09:05→17:27)
[2020-01-08] MEDS: ONDANSETRON 2MG/ML, 2ML IVPush PRN (09:11)
[2020-01-08] MEDS: FENTANYL REMOVE PATCH NOTE XX SCH (10:00)
[2020-01-08] MEDS: FENTANYL 100 MCG PATCH TD SCH (10:27)
[2020-01-08] MEDS: HYDROmorphone 2 MG/ML, 1ML IVPush PRN (11:27)
[2020-01-08] MEDS: OXYcodone IR 5MG TABLET PO PRN ×2 (15:09→20:55)
[2020-01-08 15:45] VITALS: BP 114/72
[2020-01-08 18:32] VITALS: BP 138/88
[2020-01-08] MEDS: TRAZODONE 100MG TABLET PO SCH (20:54)
[2020-01-09] MEDS: HEPARIN 5,000 UNITS/ML, 1ML SQ SCH ×3 (02:03→18:27)
[2020-01-09 04:25] VITALS: BP 122/80
[2020-01-09 09:16] VITALS: BP 101/74
[2020-01-09] MEDS: SEVELAMER CARBONATE 800MG TAB PO SCH ×3 (09:18→18:15)
[2020-01-09] MEDS: PANTOPRAZOLE 40MG TABLET PO SCH (09:18)
[2020-01-09] MEDS: FUROSEMIDE 20 MG TABLET PO SCH ×2 (09:18→18:16)
[2020-01-09] MEDS: DOCUSATE 100 MG CAPSULE PO SCH ×2 (09:19→21:05)
[2020-01-09] MEDS: BUPROPION 100 MG TABLET PO SCH ×2 (09:19→11:45)
[2020-01-09] MEDS: SODIUM CHLORIDE FLUSH 10ML SYR IVF SCH ×2 (09:19→21:05)
[2020-01-09] MEDS: GABAPENTIN 300 MG CAPSULE PO SCH ×3 (09:20→21:05)
[2020-01-09] MEDS: DULOXETINE 30 MG CAPSULE.DR PO SCH (09:20)
[2020-01-09] MEDS: LACTULOSE 20 GM/30 ML UDC PO SCH (09:20)
[2020-01-09] MEDS: MAGNESIUM OXIDE 400 MG TABLET PO SCH (09:20)
[2020-01-09] MEDS: MIDODRINE 5 MG TABLET PO SCH ×3 (09:21→21:00)
[2020-01-09] MEDS: HYDROmorphone 1 MG/ML, 1ML INJ IV PRN ×3 (09:22→18:16)
[2020-01-09 15:59] VITALS: BP 139/81
[2020-01-09] MEDS: DARBEPOETIN 200 MCG/ML SQ SCH (16:25)
[2020-01-09 21:03] VITALS: BP 120/80
[2020-01-09] MEDS: TRAZODONE 100MG TABLET PO SCH (21:05)
[2020-01-09] MEDS: OXYcodone IR 5MG TABLET PO PRN (21:08)
[2020-01-10] MEDS: HEPARIN 5,000 UNITS/ML, 1ML SQ SCH ×3 (02:27→18:03)
[2020-01-10 05:30] VITALS: BP 107/71
[2020-01-10 05:36] LABS: ANION GAP 3 mmol/L (5-15); CALCIUM 9.1 mg/dL (8.5-10.1); CHLORIDE 108 mmol/L (98-107); CREATININE 2.03 mg/dL (0.7-1.3)
[2020-01-10] MEDS: FUROSEMIDE 20 MG TABLET PO SCH ×2 (05:48→18:03)
[2020-01-10] MEDS: PANTOPRAZOLE 40MG TABLET PO SCH (08:29)
[2020-01-10] MEDS: BUPROPION 100 MG TABLET PO SCH ×2 (08:30→11:39)
[2020-01-10] MEDS: SEVELAMER CARBONATE 800MG TAB PO SCH ×3 (08:30→18:03)
[2020-01-10] MEDS: DOCUSATE 100 MG CAPSULE PO SCH (08:31)
[2020-01-10] MEDS: LACTULOSE 20 GM/30 ML UDC PO SCH (08:31)
[2020-01-10] MEDS: DULOXETINE 30 MG CAPSULE.DR PO SCH (08:31)
[2020-01-10] MEDS: MAGNESIUM OXIDE 400 MG TABLET PO SCH (08:31)
[2020-01-10] MEDS: SODIUM CHLORIDE FLUSH 10ML SYR IVF SCH (08:31)
[2020-01-10] MEDS: HYDROmorphone 1 MG/ML, 1ML INJ IV PRN ×3 (08:31→18:04)
[2020-01-10] MEDS: GABAPENTIN 300 MG CAPSULE PO SCH ×2 (08:31→16:07)
[2020-01-10 08:33] VITALS: BP 109/65
[2020-01-10] MEDS: MIDODRINE 5 MG TABLET PO SCH ×3 (08:34→21:00)
[2020-01-10] MEDS: OXYcodone IR 5MG TABLET PO PRN (11:24)
[2020-01-10] MEDS ORDERED: HYDROmorphone 2 MG/ML, 1ML ONE (13:29)
[2020-01-10] MEDS: HYDROmorphone 2 MG/ML, 1ML IVPush PRN (13:32)
[2020-01-10 15:59] VITALS: BP 126/83
[2020-01-10 20:02] VITALS: BP 115/75
[2020-01-11] MEDS: GABAPENTIN 300 MG CAPSULE PO SCH ×4 (00:55→23:35)
[2020-01-11] MEDS: DOCUSATE 100 MG CAPSULE PO SCH ×3 (00:56→23:35)
[2020-01-11] MEDS: SODIUM CHLORIDE FLUSH 10ML SYR IVF SCH ×3 (00:57→23:35)
[2020-01-11] MEDS: TRAZODONE 100MG TABLET PO SCH ×2 (00:58→23:35)
[2020-01-11] MEDS: BACLOFEN 10 MG TABLET PO PRN ×2 (00:59→23:37)
[2020-01-11] MEDS: HEPARIN 5,000 UNITS/ML, 1ML SQ SCH ×3 (02:10→17:45)
[2020-01-11 02:23] VITALS: BP 102/66
[2020-01-11] MEDS: METHYLNALTREXONE 12 MG/0.6 ML SYR SQ PRN (07:34)
[2020-01-11] MEDS: OXYcodone IR 5MG TABLET PO PRN ×2 (07:49→23:39)
[2020-01-11 07:51] VITALS: BP 124/79
[2020-01-11] MEDS: PANTOPRAZOLE 40MG TABLET PO SCH (08:00)
[2020-01-11] MEDS: SIMETHICONE 80 MG CHEW TAB PO PRN (08:00)
[2020-01-11] MEDS: ONDANSETRON 2MG/ML, 2ML IVPush PRN ×2 (08:00→17:42)
[2020-01-11] MEDS: FUROSEMIDE 20 MG TABLET PO SCH ×2 (08:00→17:27)
[2020-01-11] MEDS: SEVELAMER CARBONATE 800MG TAB PO SCH ×3 (08:25→17:27)
[2020-01-11] MEDS: DULOXETINE 30 MG CAPSULE.DR PO SCH (08:25)
[2020-01-11] MEDS: MAGNESIUM OXIDE 400 MG TABLET PO SCH (08:25)
[2020-01-11] MEDS: BUPROPION 100 MG TABLET PO SCH ×2 (08:25→12:35)
[2020-01-11] MEDS: LACTULOSE 20 GM/30 ML UDC PO SCH (08:25)
[2020-01-11] MEDS: HYDROmorphone 1 MG/ML, 1ML INJ IV PRN ×2 (08:28→17:28)
[2020-01-11] MEDS: MIDODRINE 5 MG TABLET PO SCH ×3 (09:00→21:00)
[2020-01-11] MEDS: FENTANYL 100 MCG PATCH TD SCH (12:02)
[2020-01-11] MEDS: FENTANYL REMOVE PATCH NOTE XX SCH (12:02)
[2020-01-11 14:50] VITALS: BP 115/72
[2020-01-11 20:50] VITALS: BP 111/75
[2020-01-12] MEDS: HEPARIN 5,000 UNITS/ML, 1ML SQ SCH ×3 (02:34→17:55)
[2020-01-12 03:55] VITALS: BP 95/59
[2020-01-12] MEDS: PANTOPRAZOLE 40MG TABLET PO SCH (08:39)
[2020-01-12] MEDS: FUROSEMIDE 20 MG TABLET PO SCH ×2 (08:39→17:23)
[2020-01-12] MEDS: SEVELAMER CARBONATE 800MG TAB PO SCH ×3 (08:39→17:23)
[2020-01-12] MEDS: BUPROPION 100 MG TABLET PO SCH ×2 (08:39→12:36)
[2020-01-12] MEDS: DOCUSATE 100 MG CAPSULE PO SCH ×2 (08:40→23:04)
[2020-01-12] MEDS: MIDODRINE 5 MG TABLET PO SCH ×3 (08:40→23:13)
[2020-01-12] MEDS: MAGNESIUM OXIDE 400 MG TABLET PO SCH (08:40)
[2020-01-12] MEDS: SODIUM CHLORIDE FLUSH 10ML SYR IVF SCH ×2 (08:40→23:03)
[2020-01-12] MEDS: GABAPENTIN 300 MG CAPSULE PO SCH ×3 (08:40→23:04)
[2020-01-12] MEDS: LACTULOSE 20 GM/30 ML UDC PO SCH (08:40)
[2020-01-12] MEDS: DULOXETINE 30 MG CAPSULE.DR PO SCH (08:40)
[2020-01-12 09:15] VITALS: BP 109/66
[2020-01-12] MEDS: HYDROmorphone 2 MG/ML, 1ML IVPush PRN ×2 (10:51→22:05)
[2020-01-12] MEDS: HYDROmorphone 1 MG/ML, 1ML INJ IV PRN ×3 (12:47→22:05)
[2020-01-12 14:15] VITALS: BP 132/79
[2020-01-12] MEDS: OXYcodone IR 5MG TABLET PO PRN (23:04)
[2020-01-12] MEDS: TRAZODONE 100MG TABLET PO SCH (23:04)
[2020-01-12 23:11] VITALS: BP 106/63
[2020-01-13] MEDS: HEPARIN 5,000 UNITS/ML, 1ML SQ SCH ×3 (03:07→18:10)
[2020-01-13 08:20] VITALS: BP 102/65
[2020-01-13] MEDS: LACTULOSE 20 GM/30 ML UDC PO SCH ×2 (09:00→13:16)
[2020-01-13 09:24] VITALS: BP 108/70
[2020-01-13] MEDS: BUPROPION 100 MG TABLET PO SCH ×2 (09:26→13:12)
[2020-01-13] MEDS: HYDROmorphone 1 MG/ML, 1ML INJ IV PRN ×3 (09:26→17:33)
[2020-01-13] MEDS: SEVELAMER CARBONATE 800MG TAB PO SCH ×3 (09:26→17:33)
[2020-01-13] MEDS: PANTOPRAZOLE 40MG TABLET PO SCH (09:27)
[2020-01-13] MEDS: DOCUSATE 100 MG CAPSULE PO SCH ×2 (09:27→20:29)
[2020-01-13] MEDS: MAGNESIUM OXIDE 400 MG TABLET PO SCH (09:27)
[2020-01-13] MEDS: DULOXETINE 30 MG CAPSULE.DR PO SCH (09:27)
[2020-01-13] MEDS: GABAPENTIN 300 MG CAPSULE PO SCH ×3 (09:27→20:30)
[2020-01-13] MEDS: MIDODRINE 5 MG TABLET PO SCH ×3 (09:28→20:30)
[2020-01-13] MEDS: FUROSEMIDE 20 MG TABLET PO SCH ×2 (09:28→18:09)
[2020-01-13] MEDS: SODIUM CHLORIDE FLUSH 10ML SYR IVF SCH ×2 (09:29→20:24)
[2020-01-13 14:26] VITALS: BP 106/65
[2020-01-13 16:10] VITALS: BP 117/78
[2020-01-13] MEDS: OXYcodone IR 5MG TABLET PO PRN (16:18)
[2020-01-13 18:09] VITALS: BP 116/75
[2020-01-13 20:28] VITALS: BP 106/70
[2020-01-13] MEDS: TRAZODONE 100MG TABLET PO SCH (20:29)
[2020-01-14] MEDS: HEPARIN 5,000 UNITS/ML, 1ML SQ SCH ×3 (02:32→17:11)
[2020-01-14 02:39] VITALS: BP 112/73
[2020-01-14] MEDS: PANTOPRAZOLE 40MG TABLET PO SCH (08:54)
[2020-01-14] MEDS: DOCUSATE 100 MG CAPSULE PO SCH ×2 (08:54→21:16)
[2020-01-14] MEDS: LACTULOSE 20 GM/30 ML UDC PO SCH (08:54)
[2020-01-14] MEDS: DULOXETINE 30 MG CAPSULE.DR PO SCH (08:54)
[2020-01-14] MEDS: SEVELAMER CARBONATE 800MG TAB PO SCH ×3 (08:54→17:10)
[2020-01-14] MEDS: GABAPENTIN 300 MG CAPSULE PO SCH ×3 (08:54→21:16)
[2020-01-14] MEDS: BUPROPION 100 MG TABLET PO SCH ×2 (08:54→11:37)
[2020-01-14] MEDS: MAGNESIUM OXIDE 400 MG TABLET PO SCH (08:55)
[2020-01-14 08:56] VITALS: BP 111/70
[2020-01-14] MEDS: MIDODRINE 5 MG TABLET PO SCH ×3 (08:57→21:17)
[2020-01-14] MEDS: FUROSEMIDE 20 MG TABLET PO SCH ×2 (09:00→17:11)
[2020-01-14] MEDS: ONDANSETRON 2MG/ML, 2ML IVPush PRN (09:42)
[2020-01-14] MEDS: SODIUM CHLORIDE FLUSH 10ML SYR IVF SCH ×2 (09:42→21:17)
[2020-01-14] MEDS: FENTANYL REMOVE PATCH NOTE XX SCH (10:00)
[2020-01-14] MEDS: FENTANYL 100 MCG PATCH TD SCH (10:22)
[2020-01-14] MEDS: HYDROmorphone 1 MG/ML, 1ML INJ IV PRN ×2 (11:38→17:11)
[2020-01-14 15:59] VITALS: BP 102/68
[2020-01-14 21:14] VITALS: BP 103/54
[2020-01-14] MEDS: OXYcodone IR 5MG TABLET PO PRN (21:16)
[2020-01-14] MEDS: TRAZODONE 100MG TABLET PO SCH (21:16)
[2020-01-15] MEDS: HEPARIN 5,000 UNITS/ML, 1ML SQ SCH ×3 (02:18→17:58)
[2020-01-15 03:50] VITALS: BP 113/76
[2020-01-15 05:23] VITALS: BP 109/63
[2020-01-15] MEDS: FUROSEMIDE 20 MG TABLET PO SCH ×2 (05:25→17:59)
[2020-01-15 07:24] VITALS: BP 97/65
[2020-01-15] MEDS: BUPROPION 100 MG TABLET PO SCH ×2 (08:53→11:34)
[2020-01-15] MEDS: PANTOPRAZOLE 40MG TABLET PO SCH (08:53)
[2020-01-15] MEDS: SEVELAMER CARBONATE 800MG TAB PO SCH ×3 (08:53→17:59)
[2020-01-15] MEDS: DOCUSATE 100 MG CAPSULE PO SCH ×2 (08:54→21:33)
[2020-01-15] MEDS: SODIUM CHLORIDE FLUSH 10ML SYR IVF SCH ×2 (08:54→21:33)
[2020-01-15] MEDS: DULOXETINE 30 MG CAPSULE.DR PO SCH (08:54)
[2020-01-15] MEDS: GABAPENTIN 300 MG CAPSULE PO SCH ×3 (08:54→21:34)
[2020-01-15] MEDS: LACTULOSE 20 GM/30 ML UDC PO SCH (08:54)
[2020-01-15] MEDS: MAGNESIUM OXIDE 400 MG TABLET PO SCH (08:54)
[2020-01-15] MEDS: MIDODRINE 5 MG TABLET PO SCH ×3 (08:54→21:34)
[2020-01-15] MEDS: HYDROmorphone 1 MG/ML, 1ML INJ IV PRN ×3 (08:55→17:33)
[2020-01-15] MEDS ORDERED: LIDOCAINE 1%-EPI 1:100K, 30ML INFIL ONE (15:00)
[2020-01-15 15:59] VITALS: BP 125/75
[2020-01-15] MEDS: OXYcodone IR 5MG TABLET PO PRN ×2 (16:09→21:12)
[2020-01-15 21:15] VITALS: BP 113/74
[2020-01-15] MEDS: TRAZODONE 100MG TABLET PO SCH (21:34)
[2020-01-15] MEDS ORDERED: CATHFLO-ALTEPLASE 2 MG/2 ML CATHFLUSH ONE (23:30)
[2020-01-16] MEDS: HEPARIN 5,000 UNITS/ML, 1ML SQ SCH ×3 (02:22→18:11)
[2020-01-16] MEDS: FUROSEMIDE 20 MG TABLET PO SCH ×2 (05:55→18:12)
[2020-01-16] MEDS: OXYcodone IR 5MG TABLET PO PRN ×3 (05:55→20:41)
[2020-01-16 06:41] LABS: BASOPHILS # (AUTO) 0.02 x10^3/uL (0-0.1); BASOPHILS % (AUTO) 0 % (0-1); EOSINOPHILS # (AUTO) 0.39 x10^3/uL (0-0.4); EOSINOPHILS % (AUTO) 6 % (1-7); LYMPHOCYTES # (AUTO) 1.13 x10^3/uL (1-3.4); LYMPHOCYTES % (AUTO) 17 % (22-44); MD NO; MEAN CORPUSCULAR HEMOGLOBIN 28.1 pg (27.5-34.5); MEAN CORPUSCULAR HGB CONC 31.9 g/dL (33.2-36.2); MEAN CORPUSCULAR VOLUME 88.1 fL (81-97); MEAN PLATELET VOLUME 8.1 fL (7.4-10.4); MONOCYTES # (AUTO) 0.54 x10^3/uL (0.2-0.8); MONOCYTES % (AUTO) 8 % (2-9); NEUTROPHILS # (AUTO) 4.51 x10^3/uL (1.8-6.8); NEUTROPHILS % (AUTO) 69 % (42-75); PLATELET COUNT 254 x10^3/uL (130-400); RED BLOOD COUNT 2.94 x10^6/uL (4.38-5.82); RED CELL DISTRIBUTION WIDTH 16.1 % (9.4-14.8)
[2020-01-16 06:51] LABS: ANION GAP 5 mmol/L (5-15); CALCIUM 9.1 mg/dL (8.5-10.1); CHLORIDE 108 mmol/L (98-107); CREATININE 1.93 mg/dL (0.7-1.3)
[2020-01-16] MEDS ORDERED: LIDOCAINE 1%-EPI 1:100K, 30ML INFIL ONE (07:00)
[2020-01-16 07:13] VITALS: BP 105/67
[2020-01-16] MEDS: PANTOPRAZOLE 40MG TABLET PO SCH (08:12)
[2020-01-16] MEDS: SEVELAMER CARBONATE 800MG TAB PO SCH ×3 (08:12→16:27)
[2020-01-16] MEDS: BUPROPION 100 MG TABLET PO SCH ×2 (08:12→12:44)
[2020-01-16] MEDS: MAGNESIUM OXIDE 400 MG TABLET PO SCH (08:13)
[2020-01-16] MEDS: DOCUSATE 100 MG CAPSULE PO SCH ×2 (08:13→20:40)
[2020-01-16] MEDS: GABAPENTIN 300 MG CAPSULE PO SCH ×3 (08:13→20:40)
[2020-01-16] MEDS: SODIUM CHLORIDE FLUSH 10ML SYR IVF SCH ×2 (08:13→20:41)
[2020-01-16] MEDS: LACTULOSE 20 GM/30 ML UDC PO SCH (08:13)
[2020-01-16] MEDS: DULOXETINE 30 MG CAPSULE.DR PO SCH (08:13)
[2020-01-16] MEDS: MIDODRINE 5 MG TABLET PO SCH ×3 (08:14→20:39)
[2020-01-16] MEDS: HYDROmorphone 1 MG/ML, 1ML INJ IV PRN ×2 (08:14→16:27)
[2020-01-16] MEDS: ONDANSETRON 2MG/ML, 2ML IVPush PRN (08:26)
[2020-01-16] MEDS ORDERED: HYDROmorphone 1 MG/ML, 1ML INJ IV ONE (08:45)
[2020-01-16] MEDS ORDERED: LORazepam 2 MG/ML, 1ML IVPush ONE ×3 (08:45)
[2020-01-16] MEDS: DARBEPOETIN 200 MCG/ML SQ SCH (11:22)
[2020-01-16 14:24] VITALS: BP 99/62
[2020-01-16 20:04] VITALS: BP 133/83
[2020-01-16] MEDS: TRAZODONE 100MG TABLET PO SCH (20:40)
[2020-01-17] MEDS: HEPARIN 5,000 UNITS/ML, 1ML SQ SCH ×3 (02:15→17:00)
[2020-01-17] MEDS: OXYcodone IR 5MG TABLET PO PRN ×2 (05:16→17:01)
[2020-01-17] MEDS: FUROSEMIDE 20 MG TABLET PO SCH ×2 (05:17→17:00)
[2020-01-17 07:35] VITALS: BP 100/67
[2020-01-17] MEDS: HYDROmorphone 1 MG/ML, 1ML INJ IV PRN ×3 (08:28→17:45)
[2020-01-17] MEDS: SODIUM CHLORIDE FLUSH 10ML SYR IVF SCH ×2 (08:28→20:01)
[2020-01-17] MEDS: LACTULOSE 20 GM/30 ML UDC PO SCH (08:30)
[2020-01-17] MEDS: MIDODRINE 5 MG TABLET PO SCH ×3 (08:30→20:02)
[2020-01-17] MEDS: MAGNESIUM OXIDE 400 MG TABLET PO SCH (08:31)
[2020-01-17] MEDS: SEVELAMER CARBONATE 800MG TAB PO SCH ×3 (08:31→17:45)
[2020-01-17] MEDS: BUPROPION 100 MG TABLET PO SCH ×2 (08:32→14:42)
[2020-01-17] MEDS: DOCUSATE 100 MG CAPSULE PO SCH ×2 (08:32→20:02)
[2020-01-17] MEDS: DULOXETINE 30 MG CAPSULE.DR PO SCH (08:32)
[2020-01-17] MEDS: GABAPENTIN 300 MG CAPSULE PO SCH ×3 (08:32→20:02)
[2020-01-17] MEDS: PANTOPRAZOLE 40MG TABLET PO SCH (08:32)
[2020-01-17] MEDS: FENTANYL 100 MCG PATCH TD SCH (10:33)
[2020-01-17] MEDS: FENTANYL REMOVE PATCH NOTE XX SCH (10:33)
[2020-01-17 13:37] VITALS: BP 123/71
[2020-01-17 14:00] LABS: MEAN CORPUSCULAR HEMOGLOBIN 27.6 pg (27.5-34.5); MEAN CORPUSCULAR HGB CONC 31.8 g/dL (33.2-36.2); MEAN CORPUSCULAR VOLUME 86.8 fL (81-97); MEAN PLATELET VOLUME 7.3 fL (7.4-10.4); PLATELET COUNT 300 x10^3/uL (130-400); RED CELL DISTRIBUTION WIDTH 15.9 % (9.4-14.8)
[2020-01-17 14:02] LABS: ALANINE AMINOTRANSFERASE 11 U/L (12-78); ALBUMIN 2.2 g/dL (3.4-5.0); ANION GAP 3 mmol/L (5-15); CALCIUM 9.2 mg/dL (8.5-10.1); CHLORIDE 107 mmol/L (98-107)
[2020-01-17 14:06] LABS: ALKALINE PHOSPHATASE 116 U/L (45-117); BILIRUBIN,TOTAL 0.2 mg/dL (0.2-1.0); TOTAL PROTEIN 7.1 g/dL (6.4-8.2); TROPONIN I < 0.015 ng/mL (0.000-0.045)
[2020-01-17 14:19] VITALS: BP 114/79
[2020-01-17 14:30] LABS: BASOPHILS # (AUTO) 0.01 x10^3/uL (0-0.1); BASOPHILS % (AUTO) 0 % (0-1); EOSINOPHILS # (AUTO) 0.23 x10^3/uL (0-0.4); EOSINOPHILS % (AUTO) 3 % (1-7); LYMPHOCYTES # (AUTO) 0.83 x10^3/uL (1-3.4); LYMPHOCYTES % (AUTO) 9 % (22-44); MD SCAN; MONOCYTES # (AUTO) 0.39 x10^3/uL (0.2-0.8); MONOCYTES % (AUTO) 4 % (2-9); NEUTROPHILS # (AUTO) 7.83 x10^3/uL (1.8-6.8); NEUTROPHILS % (AUTO) 84 % (42-75)
[2020-01-17] MEDS ORDERED: MORPHINE SULFATE 4 MG/ML, 1ML IVPush ONE (14:30)
[2020-01-17] MEDS: LIDODERM 5% PATCH TD SCH (14:50)
[2020-01-17] MEDS: BACLOFEN 10 MG TABLET PO PRN (16:59)
[2020-01-17] MEDS: ONDANSETRON 2MG/ML, 2ML IVPush PRN (17:01)
[2020-01-17 17:57] LABS: TROPONIN I < 0.015 ng/mL (0.000-0.045)
[2020-01-17 19:39] VITALS: BP 118/77
[2020-01-17] MEDS: TRAZODONE 100MG TABLET PO SCH (20:01)
[2020-01-18] MEDS: HEPARIN 5,000 UNITS/ML, 1ML SQ SCH ×3 (02:10→18:33)
[2020-01-18] MEDS: OXYcodone IR 5MG TABLET PO PRN ×3 (04:09→21:23)
[2020-01-18] MEDS: FUROSEMIDE 20 MG TABLET PO SCH ×2 (05:25→17:06)
[2020-01-18 06:36] VITALS: BP 107/67
[2020-01-18] MEDS: SODIUM CHLORIDE FLUSH 10ML SYR IVF SCH ×2 (08:24→20:27)
[2020-01-18] MEDS: ONDANSETRON 2MG/ML, 2ML IVPush PRN (08:24)
[2020-01-18] MEDS: SEVELAMER CARBONATE 800MG TAB PO SCH ×3 (08:25→17:06)
[2020-01-18] MEDS: LACTULOSE 20 GM/30 ML UDC PO SCH (08:26)
[2020-01-18] MEDS: DULOXETINE 30 MG CAPSULE.DR PO SCH (08:27)
[2020-01-18] MEDS: MAGNESIUM OXIDE 400 MG TABLET PO SCH (08:27)
[2020-01-18] MEDS: DOCUSATE 100 MG CAPSULE PO SCH ×2 (08:27→20:27)
[2020-01-18] MEDS: PANTOPRAZOLE 40MG TABLET PO SCH (08:28)
[2020-01-18] MEDS: GABAPENTIN 300 MG CAPSULE PO SCH ×3 (08:28→20:27)
[2020-01-18] MEDS: BUPROPION 100 MG TABLET PO SCH ×2 (08:28→12:34)
[2020-01-18] MEDS: MIDODRINE 5 MG TABLET PO SCH ×3 (08:28→20:27)
[2020-01-18] MEDS: HYDROmorphone 1 MG/ML, 1ML INJ IV PRN ×3 (08:29→17:06)
[2020-01-18] MEDS: HYDROmorphone 2 MG/ML, 1ML IVPush PRN (14:25)
[2020-01-18 15:44] VITALS: BP 101/68
[2020-01-18] MEDS: LIDODERM 5% PATCH TD SCH (15:46)
[2020-01-18] MEDS: BACLOFEN 10 MG TABLET PO PRN (18:32)
[2020-01-18] MEDS: TRAZODONE 100MG TABLET PO SCH (20:27)
[2020-01-18 20:46] VITALS: BP 115/79
[2020-01-19] MEDS: HEPARIN 5,000 UNITS/ML, 1ML SQ SCH ×3 (03:05→18:47)
[2020-01-19] MEDS: OXYcodone IR 5MG TABLET PO PRN ×4 (03:10→23:51)
[2020-01-19 06:49] VITALS: BP 105/74
[2020-01-19] MEDS: PANTOPRAZOLE 40MG TABLET PO SCH (08:49)
[2020-01-19] MEDS: DOCUSATE 100 MG CAPSULE PO SCH ×2 (08:49→23:50)
[2020-01-19] MEDS: BUPROPION 100 MG TABLET PO SCH ×2 (08:49→11:30)
[2020-01-19] MEDS: HYDROmorphone 1 MG/ML, 1ML INJ IV PRN ×3 (08:49→17:48)
[2020-01-19] MEDS: MAGNESIUM OXIDE 400 MG TABLET PO SCH (08:49)
[2020-01-19] MEDS: GABAPENTIN 300 MG CAPSULE PO SCH ×3 (08:49→23:50)
[2020-01-19] MEDS: DULOXETINE 30 MG CAPSULE.DR PO SCH (08:49)
[2020-01-19] MEDS: SEVELAMER CARBONATE 800MG TAB PO SCH ×3 (08:49→17:48)
[2020-01-19] MEDS: FUROSEMIDE 20 MG TABLET PO SCH ×2 (08:50→17:49)
[2020-01-19] MEDS: SODIUM CHLORIDE FLUSH 10ML SYR IVF SCH ×2 (08:52→23:49)
[2020-01-19] MEDS: MIDODRINE 5 MG TABLET PO SCH ×3 (08:52→23:51)
[2020-01-19] MEDS: LACTULOSE 20 GM/30 ML UDC PO SCH (08:52)
[2020-01-19 08:53] VITALS: BP 93/62
[2020-01-19 15:18] VITALS: BP 108/68
[2020-01-19 16:25] VITALS: BP 123/84
[2020-01-19] MEDS: LIDODERM 5% PATCH TD SCH (16:31)
[2020-01-19 18:52] VITALS: BP 122/74
[2020-01-19] MEDS: TRAZODONE 100MG TABLET PO SCH (23:50)
[2020-01-20 01:09] VITALS: BP 117/75
[2020-01-20] MEDS: HEPARIN 5,000 UNITS/ML, 1ML SQ SCH ×3 (03:52→18:00)
[2020-01-20] MEDS: OXYcodone IR 5MG TABLET PO PRN ×2 (03:53→21:59)
[2020-01-20] MEDS: BUPROPION 100 MG TABLET PO SCH ×2 (08:00→13:06)
[2020-01-20] MEDS: SEVELAMER CARBONATE 800MG TAB PO SCH ×3 (08:00→17:12)
[2020-01-20] MEDS: HYDROmorphone 2 MG/ML, 1ML IVPush PRN (11:47)
[2020-01-20] MEDS: PANTOPRAZOLE 40MG TABLET PO SCH (13:04)
[2020-01-20] MEDS: LACTULOSE 20 GM/30 ML UDC PO SCH (13:05)
[2020-01-20] MEDS: FENTANYL 100 MCG PATCH TD SCH (13:05)
[2020-01-20] MEDS: MAGNESIUM OXIDE 400 MG TABLET PO SCH (13:05)
[2020-01-20] MEDS: GABAPENTIN 300 MG CAPSULE PO SCH ×3 (13:05→22:01)
[2020-01-20] MEDS: DULOXETINE 30 MG CAPSULE.DR PO SCH (13:05)
[2020-01-20] MEDS: FUROSEMIDE 20 MG TABLET PO SCH ×2 (13:05→18:00)
[2020-01-20] MEDS: MIDODRINE 5 MG TABLET PO SCH ×3 (13:06→22:01)
[2020-01-20] MEDS: SODIUM CHLORIDE FLUSH 10ML SYR IVF SCH ×2 (13:06→21:58)
[2020-01-20] MEDS: DOCUSATE 100 MG CAPSULE PO SCH (13:06)
[2020-01-20] MEDS: FENTANYL REMOVE PATCH NOTE XX SCH (13:07)
[2020-01-20] MEDS: HYDROmorphone 1 MG/ML, 1ML INJ IV PRN ×2 (13:44→17:11)
[2020-01-20] MEDS: LIDODERM 5% PATCH TD SCH (17:13)
[2020-01-20 18:15] VITALS: BP 111/77
[2020-01-20 20:08] VITALS: BP 114/80
[2020-01-20] MEDS: TRAZODONE 100MG TABLET PO SCH (21:59)
[2020-01-20] MEDS: LORazepam 1MG TABLET PO PRN (22:00)
[2020-01-21 00:11] VITALS: BP 109/71
[2020-01-21] MEDS: DOCUSATE 100 MG CAPSULE PO SCH ×3 (00:11→21:37)
[2020-01-21] MEDS: HEPARIN 5,000 UNITS/ML, 1ML SQ SCH ×3 (00:19→16:11)
[2020-01-21] MEDS: BUPROPION 100 MG TABLET PO SCH ×2 (08:23→12:23)
[2020-01-21] MEDS: LACTULOSE 20 GM/30 ML UDC PO SCH (08:23)
[2020-01-21] MEDS: HYDROmorphone 1 MG/ML, 1ML INJ IV PRN ×3 (08:23→17:10)
[2020-01-21] MEDS: MAGNESIUM OXIDE 400 MG TABLET PO SCH (08:24)
[2020-01-21] MEDS: SEVELAMER CARBONATE 800MG TAB PO SCH ×3 (08:24→17:10)
[2020-01-21] MEDS: GABAPENTIN 300 MG CAPSULE PO SCH ×3 (08:24→21:37)
[2020-01-21] MEDS: MIDODRINE 5 MG TABLET PO SCH ×3 (08:24→21:00)
[2020-01-21] MEDS: PANTOPRAZOLE 40MG TABLET PO SCH (08:24)
[2020-01-21] MEDS: DULOXETINE 30 MG CAPSULE.DR PO SCH (08:24)
[2020-01-21] MEDS: SODIUM CHLORIDE FLUSH 10ML SYR IVF SCH ×2 (08:25→21:36)
[2020-01-21] MEDS: FUROSEMIDE 20 MG TABLET PO SCH ×2 (08:25→17:10)
[2020-01-21 08:41] VITALS: BP 104/85
[2020-01-21 12:48] VITALS: BP 114/75
[2020-01-21 16:15] VITALS: BP 113/75
[2020-01-21] MEDS: LIDODERM 5% PATCH TD SCH (16:15)
[2020-01-21] MEDS: OXYcodone IR 5MG TABLET PO PRN (19:52)
[2020-01-21 21:30] VITALS: BP 119/68
[2020-01-21] MEDS: TRAZODONE 100MG TABLET PO SCH (21:37)
[2020-01-22] MEDS: HEPARIN 5,000 UNITS/ML, 1ML SQ SCH ×3 (00:22→17:14)
[2020-01-22] MEDS: OXYcodone IR 5MG TABLET PO PRN ×2 (00:22→22:46)
[2020-01-22 05:06] VITALS: BP 105/69
[2020-01-22] MEDS: FUROSEMIDE 20 MG TABLET PO SCH ×2 (06:24→17:15)
[2020-01-22 07:50] VITALS: BP 102/69
[2020-01-22] MEDS: HYDROmorphone 1 MG/ML, 1ML INJ IV PRN ×2 (08:44→12:40)
[2020-01-22] MEDS: SODIUM CHLORIDE FLUSH 10ML SYR IVF SCH ×2 (08:45→22:07)
[2020-01-22] MEDS: SEVELAMER CARBONATE 800MG TAB PO SCH ×3 (08:47→17:15)
[2020-01-22] MEDS: GABAPENTIN 300 MG CAPSULE PO SCH ×3 (08:48→22:06)
[2020-01-22] MEDS: DULOXETINE 30 MG CAPSULE.DR PO SCH (08:48)
[2020-01-22] MEDS: DOCUSATE 100 MG CAPSULE PO SCH ×2 (08:48→22:06)
[2020-01-22] MEDS: PANTOPRAZOLE 40MG TABLET PO SCH (08:48)
[2020-01-22] MEDS: MIDODRINE 5 MG TABLET PO SCH ×3 (08:48→21:00)
[2020-01-22] MEDS: MAGNESIUM OXIDE 400 MG TABLET PO SCH (08:48)
[2020-01-22] MEDS: BUPROPION 100 MG TABLET PO SCH ×2 (08:48→17:15)
[2020-01-22] MEDS: LACTULOSE 20 GM/30 ML UDC PO SCH (08:49)
[2020-01-22 12:47] VITALS: BP 124/80
[2020-01-22] MEDS: HYDROmorphone 2 MG/ML, 1ML IVPush PRN (14:38)
[2020-01-22] MEDS: LIDODERM 5% PATCH TD SCH (17:17)
[2020-01-22 17:20] VITALS: BP 133/90
[2020-01-22 21:45] VITALS: BP_SYST 110; BP_SYST 112; BP_DIAS 65
[2020-01-22] MEDS: TRAZODONE 100MG TABLET PO SCH (22:07)
[2020-01-23 04:51] VITALS: BP 105/71
[2020-01-23] MEDS: FUROSEMIDE 20 MG TABLET PO SCH ×2 (06:00→17:28)
[2020-01-23 08:02] VITALS: BP 109/74
[2020-01-23] MEDS: SEVELAMER CARBONATE 800MG TAB PO SCH ×3 (08:07→15:22)
[2020-01-23] MEDS: PANTOPRAZOLE 40MG TABLET PO SCH (08:07)
[2020-01-23] MEDS: BUPROPION 100 MG TABLET PO SCH ×2 (08:08→11:26)
[2020-01-23] MEDS: DOCUSATE 100 MG CAPSULE PO SCH ×2 (08:08→22:25)
[2020-01-23] MEDS: DULOXETINE 30 MG CAPSULE.DR PO SCH (08:08)
[2020-01-23] MEDS: HEPARIN 5,000 UNITS/ML, 1ML SQ SCH ×3 (08:08→15:21)
[2020-01-23] MEDS: MAGNESIUM OXIDE 400 MG TABLET PO SCH (08:08)
[2020-01-23] MEDS: LACTULOSE 20 GM/30 ML UDC PO SCH (08:08)
[2020-01-23] MEDS: GABAPENTIN 300 MG CAPSULE PO SCH ×3 (08:08→22:25)
[2020-01-23] MEDS: MIDODRINE 5 MG TABLET PO SCH ×3 (08:09→22:32)
[2020-01-23] MEDS ORDERED: LIDOCAINE 1%, 10ML ONE ×2 (08:52→12:47)
[2020-01-23] MEDS ORDERED: CEFAZOLIN PMX 1GM/50ML 50 ML ONE (08:55)
[2020-01-23] MEDS ORDERED: FENTANYL PF 100 MCG/2ML ONE ×2 (08:55→12:08)
[2020-01-23] MEDS ORDERED: FLUMAZENIL 0.1 MG/1 ML, 5ML ONE (08:55)
[2020-01-23] MEDS ORDERED: NALOXONE 1 MG/ML, 2ML ONE (08:55)
[2020-01-23] MEDS ORDERED: MIDAZOLAM 1 MG/ML, 5ML ONE (08:55)
[2020-01-23 09:17] LABS: BASOPHILS # (AUTO) 0.04 x10^3/uL (0-0.1); BASOPHILS % (AUTO) 1 % (0-1); EOSINOPHILS # (AUTO) 0.29 x10^3/uL (0-0.4); EOSINOPHILS % (AUTO) 3 % (1-7); LYMPHOCYTES % (AUTO) 12 % (22-44); MD NO; MEAN CORPUSCULAR HGB CONC 32.1 g/dL (33.2-36.2); MEAN CORPUSCULAR VOLUME 87.1 fL (81-97); MEAN PLATELET VOLUME 7.1 fL (7.4-10.4); MONOCYTES # (AUTO) 0.58 x10^3/uL (0.2-0.8); MONOCYTES % (AUTO) 6 % (2-9); NEUTROPHILS # (AUTO) 7.11 x10^3/uL (1.8-6.8); NEUTROPHILS % (AUTO) 78 % (42-75); PLATELET COUNT 313 x10^3/uL (130-400); RED BLOOD COUNT 3.52 x10^6/uL (4.38-5.82); RED CELL DISTRIBUTION WIDTH 15.2 % (9.4-14.8)
[2020-01-23 09:26] LABS: ALBUMIN 2.2 g/dL (3.4-5.0); ANION GAP 6 mmol/L (5-15); CALCIUM 9.2 mg/dL (8.5-10.1); CHLORIDE 105 mmol/L (98-107); CREATININE 1.76 mg/dL (0.7-1.3)
[2020-01-23] MEDS ORDERED: ONDANSETRON 2MG/ML, 2ML ONE (09:27)
[2020-01-23] MEDS ORDERED: CYSTO CONRAY II 250 ML VIAL UR ONE (10:38)
[2020-01-23] MEDS ORDERED: VISIPAQUE 320MG/ML, 50ML BOTTLE ONE (10:38)
[2020-01-23] MEDS: FENTANYL 100 MCG PATCH TD SCH (10:58)
[2020-01-23] MEDS: DARBEPOETIN 200 MCG/ML SQ SCH (10:58)
[2020-01-23] MEDS: SODIUM CHLORIDE FLUSH 10ML SYR IVF SCH ×2 (10:58→22:26)
[2020-01-23] MEDS: FENTANYL REMOVE PATCH NOTE XX SCH (11:09)
[2020-01-23] MEDS ORDERED: VISIPAQUE 270 MG/ML, 50ML BOTTLE ONE (12:00)
[2020-01-23] MEDS ORDERED: MIDAZOLAM 1 MG/ML, 2ML ONE (12:08)
[2020-01-23] MEDS ORDERED: PROPOFOL 10 MG/ML, 20ML ONE (12:35)
[2020-01-23] MEDS ORDERED: HYDROmorphone 1 MG/ML, 1ML INJ ONE (13:25)
[2020-01-23] MEDS ORDERED: PROMETHAZINE 25 MG/ML, 1ML IV PRN (13:30)
[2020-01-23] MEDS ORDERED: FENTANYL PF 100 MCG/2ML IV PRN (13:30)
[2020-01-23] MEDS ORDERED: MEPERIDINE/PF 25MG/ML,1ML IVPush PRN (13:30)
[2020-01-23] MEDS ORDERED: OXYcodone 5 MG/5 ML ORAL.SOL UDC PO PRN (13:30)
[2020-01-23] MEDS ORDERED: hydrALAzine 20 MG/ML, 1ML IV PRN (13:30)
[2020-01-23] MEDS ORDERED: HYDROmorphone 2 MG/ML, 1ML IVPush PRN (13:30)
[2020-01-23 14:25] VITALS: BP 109/74
[2020-01-23] MEDS: OXYcodone IR 5MG TABLET PO PRN ×2 (14:56→19:32)
[2020-01-23] MEDS: HYDROmorphone 1 MG/ML, 1ML INJ IV PRN ×2 (15:21→17:27)
[2020-01-23] MEDS: LIDODERM 5% PATCH TD SCH (15:22)
[2020-01-23] MEDS: TRAZODONE 100MG TABLET PO SCH (22:26)
[2020-01-23 22:33] VITALS: BP 107/71
[2020-01-24] MEDS: OXYcodone IR 5MG TABLET PO PRN ×4 (00:13→21:40)
[2020-01-24] MEDS: HEPARIN 5,000 UNITS/ML, 1ML SQ SCH ×3 (00:16→17:52)
[2020-01-24 05:24] VITALS: BP 112/74
[2020-01-24] MEDS: FUROSEMIDE 20 MG TABLET PO SCH ×2 (06:05→17:53)
[2020-01-24 08:21] VITALS: BP 111/79
[2020-01-24] MEDS: HYDROmorphone 1 MG/ML, 1ML INJ IV PRN ×2 (08:46→17:54)
[2020-01-24] MEDS: PANTOPRAZOLE 40MG TABLET PO SCH (08:47)
[2020-01-24] MEDS: GABAPENTIN 300 MG CAPSULE PO SCH ×3 (08:47→21:39)
[2020-01-24] MEDS: MAGNESIUM OXIDE 400 MG TABLET PO SCH (08:47)
[2020-01-24] MEDS: DOCUSATE 100 MG CAPSULE PO SCH ×2 (08:47→21:39)
[2020-01-24] MEDS: BUPROPION 100 MG TABLET PO SCH ×2 (08:47→13:21)
[2020-01-24] MEDS: DULOXETINE 30 MG CAPSULE.DR PO SCH (08:47)
[2020-01-24] MEDS: SEVELAMER CARBONATE 800MG TAB PO SCH ×3 (08:47→17:52)
[2020-01-24] MEDS: MIDODRINE 5 MG TABLET PO SCH ×3 (08:47→21:37)
[2020-01-24] MEDS: LACTULOSE 20 GM/30 ML UDC PO SCH (08:48)
[2020-01-24] MEDS: SODIUM CHLORIDE FLUSH 10ML SYR IVF SCH ×2 (09:08→21:00)
[2020-01-24] MEDS: HYDROmorphone 2 MG/ML, 1ML IVPush PRN (13:21)
[2020-01-24 14:55] VITALS: BP 122/81
[2020-01-24] MEDS: LIDODERM 5% PATCH TD SCH (16:30)
[2020-01-24] MEDS: TRAZODONE 100MG TABLET PO SCH (21:39)
[2020-01-24 21:41] VITALS: BP 122/81
[2020-01-25] MEDS: HEPARIN 5,000 UNITS/ML, 1ML SQ SCH ×3 (02:43→18:11)
[2020-01-25 02:45] VITALS: BP 114/82
[2020-01-25] MEDS: OXYcodone IR 5MG TABLET PO PRN ×4 (06:02→21:47)
[2020-01-25] MEDS: FUROSEMIDE 20 MG TABLET PO SCH ×2 (06:03→17:50)
[2020-01-25 06:29] VITALS: BP 115/75
[2020-01-25] MEDS: PANTOPRAZOLE 40MG TABLET PO SCH (08:26)
[2020-01-25] MEDS: BUPROPION 100 MG TABLET PO SCH ×2 (08:27→12:44)
[2020-01-25] MEDS: GABAPENTIN 300 MG CAPSULE PO SCH ×3 (08:27→21:46)
[2020-01-25] MEDS: DULOXETINE 30 MG CAPSULE.DR PO SCH (08:27)
[2020-01-25] MEDS: SEVELAMER CARBONATE 800MG TAB PO SCH ×3 (08:27→17:50)
[2020-01-25] MEDS: MAGNESIUM OXIDE 400 MG TABLET PO SCH (08:27)
[2020-01-25] MEDS: MIDODRINE 5 MG TABLET PO SCH ×4 (08:27→21:00)
[2020-01-25] MEDS: DOCUSATE 100 MG CAPSULE PO SCH ×2 (08:27→21:47)
[2020-01-25] MEDS: LACTULOSE 20 GM/30 ML UDC PO SCH (08:28)
[2020-01-25] MEDS: SODIUM CHLORIDE FLUSH 10ML SYR IVF SCH ×2 (08:38→21:48)
[2020-01-25] MEDS: HYDROmorphone 1 MG/ML, 1ML INJ IV PRN ×2 (12:44→17:51)
[2020-01-25 14:54] VITALS: BP 117/77
[2020-01-25] MEDS: LIDODERM 5% PATCH TD SCH (16:30)
[2020-01-25 21:28] VITALS: BP 127/82
[2020-01-25] MEDS: TRAZODONE 100MG TABLET PO SCH (21:47)
[2020-01-26 02:45] VITALS: BP 112/80
[2020-01-26] MEDS: HEPARIN 5,000 UNITS/ML, 1ML SQ SCH ×3 (02:45→22:26)
[2020-01-26] MEDS: FUROSEMIDE 20 MG TABLET PO SCH ×2 (06:10→17:10)
[2020-01-26] MEDS: OXYcodone IR 5MG TABLET PO PRN ×3 (06:11→21:55)
[2020-01-26 06:37] VITALS: BP 125/85
[2020-01-26] MEDS: MAGNESIUM OXIDE 400 MG TABLET PO SCH (08:35)
[2020-01-26] MEDS: SEVELAMER CARBONATE 800MG TAB PO SCH ×3 (08:35→17:10)
[2020-01-26] MEDS: BUPROPION 100 MG TABLET PO SCH ×2 (08:35→12:07)
[2020-01-26] MEDS: PANTOPRAZOLE 40MG TABLET PO SCH (08:35)
[2020-01-26] MEDS: LACTULOSE 20 GM/30 ML UDC PO SCH (08:35)
[2020-01-26] MEDS: DULOXETINE 30 MG CAPSULE.DR PO SCH (08:35)
[2020-01-26] MEDS: DOCUSATE 100 MG CAPSULE PO SCH ×2 (08:37→22:25)
[2020-01-26] MEDS: MIDODRINE 5 MG TABLET PO SCH ×3 (08:37→22:26)
[2020-01-26] MEDS: GABAPENTIN 300 MG CAPSULE PO SCH ×3 (08:37→22:25)
[2020-01-26] MEDS: SODIUM CHLORIDE FLUSH 10ML SYR IVF SCH ×2 (08:38→22:26)
[2020-01-26] MEDS: HYDROmorphone 1 MG/ML, 1ML INJ IV PRN ×2 (08:38→17:12)
[2020-01-26] MEDS: FENTANYL 100 MCG PATCH TD SCH (12:07)
[2020-01-26] MEDS: FENTANYL REMOVE PATCH NOTE XX SCH (12:07)
[2020-01-26] MEDS: HYDROmorphone 2 MG/ML, 1ML IVPush PRN (12:09)
[2020-01-26 15:20] VITALS: BP 120/87
[2020-01-26] MEDS: LIDODERM 5% PATCH TD SCH (16:30)
[2020-01-26 19:42] VITALS: BP 125/82
[2020-01-26] MEDS: TRAZODONE 100MG TABLET PO SCH (22:26)
[2020-01-27 01:20] VITALS: BP 112/76
[2020-01-27] MEDS: OXYcodone IR 5MG TABLET PO PRN ×3 (01:42→21:10)
[2020-01-27] MEDS: FUROSEMIDE 20 MG TABLET PO SCH ×2 (05:19→17:25)
[2020-01-27] MEDS: HEPARIN 5,000 UNITS/ML, 1ML SQ SCH ×3 (05:19→21:11)
[2020-01-27] MEDS: ONDANSETRON 2MG/ML, 2ML IVPush PRN (07:07)
[2020-01-27 08:32] VITALS: BP 112/74
[2020-01-27] MEDS: PANTOPRAZOLE 40MG TABLET PO SCH (09:00)
[2020-01-27] MEDS: MIDODRINE 5 MG TABLET PO SCH ×3 (09:00→21:10)
[2020-01-27] MEDS: SODIUM CHLORIDE FLUSH 10ML SYR IVF SCH ×2 (09:01→21:10)
[2020-01-27] MEDS: DOCUSATE 100 MG CAPSULE PO SCH ×2 (09:01→21:10)
[2020-01-27] MEDS: BUPROPION 100 MG TABLET PO SCH ×2 (09:01→12:28)
[2020-01-27] MEDS: SEVELAMER CARBONATE 800MG TAB PO SCH ×3 (09:01→17:25)
[2020-01-27] MEDS: MAGNESIUM OXIDE 400 MG TABLET PO SCH (09:02)
[2020-01-27] MEDS: GABAPENTIN 300 MG CAPSULE PO SCH ×3 (09:02→21:10)
[2020-01-27] MEDS: LACTULOSE 20 GM/30 ML UDC PO SCH (09:02)
[2020-01-27] MEDS: DULOXETINE 30 MG CAPSULE.DR PO SCH (09:21)
[2020-01-27] MEDS: HYDROmorphone 1 MG/ML, 1ML INJ IV PRN ×2 (12:27→17:25)
[2020-01-27 14:10] VITALS: BP 122/76
[2020-01-27] MEDS: LIDODERM 5% PATCH TD SCH (16:30)
[2020-01-27] MEDS: TRAZODONE 100MG TABLET PO SCH (21:10)
[2020-01-27 21:33] VITALS: BP 126/86
[2020-01-28] MEDS: HEPARIN 5,000 UNITS/ML, 1ML SQ SCH ×3 (04:06→21:09)
[2020-01-28] MEDS: OXYcodone IR 5MG TABLET PO PRN ×2 (04:07→13:36)
[2020-01-28] MEDS: FUROSEMIDE 20 MG TABLET PO SCH ×2 (06:34→17:27)
[2020-01-28 08:00] VITALS: BP 123/83
[2020-01-28] MEDS: PANTOPRAZOLE 40MG TABLET PO SCH (08:06)
[2020-01-28] MEDS: SEVELAMER CARBONATE 800MG TAB PO SCH ×3 (08:06→17:27)
[2020-01-28] MEDS: MIDODRINE 5 MG TABLET PO SCH ×4 (08:06→21:00)
[2020-01-28] MEDS: LACTULOSE 20 GM/30 ML UDC PO SCH (08:06)
[2020-01-28] MEDS: MAGNESIUM OXIDE 400 MG TABLET PO SCH (08:07)
[2020-01-28] MEDS: BUPROPION 100 MG TABLET PO SCH ×2 (08:07→12:24)
[2020-01-28] MEDS: HYDROmorphone 1 MG/ML, 1ML INJ IV PRN ×3 (08:07→17:27)
[2020-01-28] MEDS: GABAPENTIN 300 MG CAPSULE PO SCH ×3 (08:07→21:10)
[2020-01-28] MEDS: DOCUSATE 100 MG CAPSULE PO SCH ×2 (08:07→21:10)
[2020-01-28] MEDS: DULOXETINE 30 MG CAPSULE.DR PO SCH (08:07)
[2020-01-28] MEDS: SODIUM CHLORIDE FLUSH 10ML SYR IVF SCH ×2 (08:11→21:13)
[2020-01-28] MEDS: ONDANSETRON 2MG/ML, 2ML IVPush PRN (08:19)
[2020-01-28 12:33] VITALS: BP 120/82
[2020-01-28 16:04] VITALS: BP 117/78
[2020-01-28] MEDS: LIDODERM 5% PATCH TD SCH (16:05)
[2020-01-28] MEDS: TRAZODONE 100MG TABLET PO SCH (21:09)
[2020-01-28 21:29] VITALS: BP 117/69
[2020-01-29] MEDS: OXYcodone IR 5MG TABLET PO PRN ×3 (00:01→19:50)
[2020-01-29 03:58] VITALS: BP 113/73
[2020-01-29] MEDS: HEPARIN 5,000 UNITS/ML, 1ML SQ SCH ×3 (05:41→21:34)
[2020-01-29] MEDS: FUROSEMIDE 20 MG TABLET PO SCH ×2 (05:41→17:30)
[2020-01-29 08:10] VITALS: BP 122/82
[2020-01-29] MEDS: HYDROmorphone 1 MG/ML, 1ML INJ IV PRN (08:55)
[2020-01-29] MEDS: LACTULOSE 20 GM/30 ML UDC PO SCH (08:55)
[2020-01-29] MEDS: PANTOPRAZOLE 40MG TABLET PO SCH (08:56)
[2020-01-29] MEDS: BUPROPION 100 MG TABLET PO SCH ×2 (08:56→11:56)
[2020-01-29] MEDS: GABAPENTIN 300 MG CAPSULE PO SCH ×3 (08:56→21:33)
[2020-01-29] MEDS: MIDODRINE 5 MG TABLET PO SCH ×3 (08:56→21:00)
[2020-01-29] MEDS: FENTANYL 100 MCG PATCH TD SCH (08:56)
[2020-01-29] MEDS: DULOXETINE 30 MG CAPSULE.DR PO SCH (08:56)
[2020-01-29] MEDS: MAGNESIUM OXIDE 400 MG TABLET PO SCH (08:56)
[2020-01-29] MEDS: DOCUSATE 100 MG CAPSULE PO SCH ×2 (08:56→21:33)
[2020-01-29] MEDS: SEVELAMER CARBONATE 800MG TAB PO SCH ×3 (08:56→17:30)
[2020-01-29] MEDS: SODIUM CHLORIDE FLUSH 10ML SYR IVF SCH ×2 (08:57→21:33)
[2020-01-29] MEDS: FENTANYL REMOVE PATCH NOTE XX SCH (08:57)
[2020-01-29] MEDS: HYDROmorphone 2 MG/ML, 1ML IVPush PRN (14:26)
[2020-01-29 15:00] VITALS: BP 124/74
[2020-01-29] MEDS: LIDODERM 5% PATCH TD SCH (16:30)
[2020-01-29] MEDS: TRAZODONE 100MG TABLET PO SCH (21:33)
[2020-01-29 21:37] VITALS: BP 130/83
[2020-01-30 05:28] VITALS: BP 135/73
[2020-01-30] MEDS: HEPARIN 5,000 UNITS/ML, 1ML SQ SCH ×3 (05:31→22:29)
[2020-01-30] MEDS: FUROSEMIDE 20 MG TABLET PO SCH ×2 (05:32→17:32)
[2020-01-30] MEDS: MAGNESIUM OXIDE 400 MG TABLET PO SCH (08:41)
[2020-01-30] MEDS: DOCUSATE 100 MG CAPSULE PO SCH ×3 (08:41→22:28)
[2020-01-30] MEDS: SEVELAMER CARBONATE 800MG TAB PO SCH ×3 (08:41→17:32)
[2020-01-30] MEDS: BUPROPION 100 MG TABLET PO SCH ×2 (08:41→12:33)
[2020-01-30] MEDS: LACTULOSE 20 GM/30 ML UDC PO SCH (08:41)
[2020-01-30] MEDS: PANTOPRAZOLE 40MG TABLET PO SCH (08:41)
[2020-01-30] MEDS: GABAPENTIN 300 MG CAPSULE PO SCH ×3 (08:42→22:28)
[2020-01-30] MEDS: MIDODRINE 5 MG TABLET PO SCH ×3 (08:42→22:30)
[2020-01-30] MEDS: DULOXETINE 30 MG CAPSULE.DR PO SCH (08:42)
[2020-01-30 08:43] VITALS: BP 108/73
[2020-01-30] MEDS: HYDROmorphone 1 MG/ML, 1ML INJ IV PRN ×3 (08:45→17:32)
[2020-01-30] MEDS: SODIUM CHLORIDE FLUSH 10ML SYR IVF SCH ×2 (08:46→22:28)
[2020-01-30] MEDS: DARBEPOETIN 200 MCG/ML SQ SCH (09:17)
[2020-01-30 12:33] VITALS: BP 132/86
[2020-01-30] MEDS: LIDODERM 5% PATCH TD SCH (16:30)
[2020-01-30] MEDS: OXYcodone IR 5MG TABLET PO PRN ×2 (18:20→22:39)
[2020-01-30 20:00] VITALS: BP 125/85
[2020-01-30] MEDS: TRAZODONE 100MG TABLET PO SCH (22:28)
[2020-01-31 02:06] VITALS: BP 125/85
[2020-01-31] MEDS: OXYcodone IR 5MG TABLET PO PRN ×3 (03:22→21:30)
[2020-01-31] MEDS: FUROSEMIDE 20 MG TABLET PO SCH ×2 (06:30→17:17)
[2020-01-31] MEDS: HEPARIN 5,000 UNITS/ML, 1ML SQ SCH ×3 (06:30→23:12)
[2020-01-31 07:53] VITALS: BP 105/67
[2020-01-31] MEDS: MAGNESIUM OXIDE 400 MG TABLET PO SCH ×2 (08:58→09:05)
[2020-01-31] MEDS: SEVELAMER CARBONATE 800MG TAB PO SCH ×4 (08:58→17:17)
[2020-01-31] MEDS: MIDODRINE 5 MG TABLET PO SCH ×4 (08:59→21:00)
[2020-01-31] MEDS: PANTOPRAZOLE 40MG TABLET PO SCH ×2 (08:59→09:05)
[2020-01-31] MEDS: LACTULOSE 20 GM/30 ML UDC PO SCH ×2 (08:59→09:05)
[2020-01-31] MEDS: GABAPENTIN 300 MG CAPSULE PO SCH ×4 (08:59→21:29)
[2020-01-31] MEDS: DOCUSATE 100 MG CAPSULE PO SCH ×3 (08:59→21:29)
[2020-01-31] MEDS: DULOXETINE 30 MG CAPSULE.DR PO SCH ×2 (08:59→09:05)
[2020-01-31] MEDS: HYDROmorphone 1 MG/ML, 1ML INJ IV PRN ×3 (08:59→17:23)
[2020-01-31] MEDS: BUPROPION 100 MG TABLET PO SCH ×3 (08:59→12:26)
[2020-01-31] MEDS: SODIUM CHLORIDE FLUSH 10ML SYR IVF SCH ×2 (09:00→21:29)
[2020-01-31 12:06] VITALS: BP 97/63
[2020-01-31] MEDS: HYDROmorphone 2 MG/ML, 1ML IVPush PRN (13:49)
[2020-01-31 21:00] VITALS: BP 124/73
[2020-01-31] MEDS: TRAZODONE 100MG TABLET PO SCH (21:29)
[2020-02-01 05:10] VITALS: BP 104/70
[2020-02-01] MEDS: FUROSEMIDE 20 MG TABLET PO SCH ×2 (06:09→17:36)
[2020-02-01] MEDS: HEPARIN 5,000 UNITS/ML, 1ML SQ SCH ×3 (06:09→22:44)
[2020-02-01 06:47] VITALS: BP 105/72
[2020-02-01] MEDS: FENTANYL REMOVE PATCH NOTE XX SCH (08:40)
[2020-02-01] MEDS: FENTANYL 100 MCG PATCH TD SCH (09:08)
[2020-02-01] MEDS: SEVELAMER CARBONATE 800MG TAB PO SCH ×3 (09:11→17:35)
[2020-02-01] MEDS: SODIUM CHLORIDE FLUSH 10ML SYR IVF SCH ×2 (09:12→22:43)
[2020-02-01] MEDS: DULOXETINE 30 MG CAPSULE.DR PO SCH (09:12)
[2020-02-01] MEDS: DOCUSATE 100 MG CAPSULE PO SCH ×2 (09:12→22:43)
[2020-02-01] MEDS: LACTULOSE 20 GM/30 ML UDC PO SCH (09:12)
[2020-02-01] MEDS: BUPROPION 100 MG TABLET PO SCH ×2 (09:12→12:05)
[2020-02-01] MEDS: PANTOPRAZOLE 40MG TABLET PO SCH (09:13)
[2020-02-01] MEDS: MIDODRINE 5 MG TABLET PO SCH ×3 (09:13→22:44)
[2020-02-01] MEDS: GABAPENTIN 300 MG CAPSULE PO SCH ×3 (09:13→22:43)
[2020-02-01] MEDS: MAGNESIUM OXIDE 400 MG TABLET PO SCH (09:13)
[2020-02-01] MEDS: HYDROmorphone 1 MG/ML, 1ML INJ IV PRN ×3 (09:14→17:35)
[2020-02-01] MEDS: ONDANSETRON 2MG/ML, 2ML IVPush PRN (10:34)
[2020-02-01] MEDS: OXYcodone IR 5MG TABLET PO PRN (12:05)
[2020-02-01 15:34] VITALS: BP 123/85
[2020-02-01 21:33] VITALS: BP 135/85
[2020-02-01] MEDS: TRAZODONE 100MG TABLET PO SCH (22:43)
[2020-02-02] MEDS: OXYcodone IR 5MG TABLET PO PRN ×3 (00:25→18:00)
[2020-02-02 03:19] VITALS: BP 134/83
[2020-02-02 07:02] VITALS: BP 105/67
[2020-02-02] MEDS: HEPARIN 5,000 UNITS/ML, 1ML SQ SCH ×3 (07:21→23:55)
[2020-02-02] MEDS: HYDROmorphone 1 MG/ML, 1ML INJ IV PRN ×2 (11:10→16:59)
[2020-02-02] MEDS: MAGNESIUM OXIDE 400 MG TABLET PO SCH (11:10)
[2020-02-02] MEDS: BUPROPION 100 MG TABLET PO SCH ×2 (11:10→11:24)
[2020-02-02] MEDS: PANTOPRAZOLE 40MG TABLET PO SCH (11:10)
[2020-02-02] MEDS: MIDODRINE 5 MG TABLET PO SCH ×3 (11:11→21:00)
[2020-02-02] MEDS: FUROSEMIDE 20 MG TABLET PO SCH ×2 (11:11→17:28)
[2020-02-02] MEDS: LACTULOSE 20 GM/30 ML UDC PO SCH (11:11)
[2020-02-02] MEDS: DULOXETINE 30 MG CAPSULE.DR PO SCH (11:11)
[2020-02-02] MEDS: GABAPENTIN 300 MG CAPSULE PO SCH ×3 (11:11→23:55)
[2020-02-02] MEDS: SODIUM CHLORIDE FLUSH 10ML SYR IVF SCH ×2 (11:12→23:55)
[2020-02-02] MEDS: SEVELAMER CARBONATE 800MG TAB PO SCH ×3 (11:12→17:28)
[2020-02-02] MEDS: DOCUSATE 100 MG CAPSULE PO SCH ×2 (11:12→23:55)
[2020-02-02] MEDS: HYDROmorphone 2 MG/ML, 1ML IVPush PRN (14:07)
[2020-02-02] MEDS: DAKIN'S SOLUTION 1/4 STRENGTH 1,000 ML IRRIG SOLN EXT SCH (14:08)
[2020-02-02 16:14] VITALS: BP 133/85
[2020-02-02 18:23] VITALS: BP 128/87
[2020-02-02] MEDS: TRAZODONE 100MG TABLET PO SCH (23:55)
[2020-02-03 02:03] VITALS: BP 105/71
[2020-02-03] MEDS: OXYcodone IR 5MG TABLET PO PRN ×3 (06:35→19:09)
[2020-02-03 06:46] VITALS: BP 137/83
[2020-02-03] MEDS: DAKIN'S SOLUTION 1/4 STRENGTH 1,000 ML IRRIG SOLN EXT SCH (08:08)
[2020-02-03] MEDS: MIDODRINE 5 MG TABLET PO SCH ×3 (08:09→21:00)
[2020-02-03] MEDS: ONDANSETRON 2MG/ML, 2ML IVPush PRN (09:05)
[2020-02-03] MEDS: HEPARIN 5,000 UNITS/ML, 1ML SQ SCH ×3 (09:07→23:08)
[2020-02-03] MEDS: LACTULOSE 20 GM/30 ML UDC PO SCH (09:08)
[2020-02-03] MEDS: SEVELAMER CARBONATE 800MG TAB PO SCH ×3 (09:09→17:20)
[2020-02-03] MEDS: BUPROPION 100 MG TABLET PO SCH ×2 (09:10→12:56)
[2020-02-03] MEDS: GABAPENTIN 300 MG CAPSULE PO SCH ×3 (09:10→23:07)
[2020-02-03] MEDS: MAGNESIUM OXIDE 400 MG TABLET PO SCH (09:11)
[2020-02-03] MEDS: PANTOPRAZOLE 40MG TABLET PO SCH (09:11)
[2020-02-03] MEDS: DULOXETINE 30 MG CAPSULE.DR PO SCH (09:11)
[2020-02-03] MEDS: DOCUSATE 100 MG CAPSULE PO SCH ×2 (09:11→23:06)
[2020-02-03] MEDS: FUROSEMIDE 20 MG TABLET PO SCH ×2 (09:11→17:20)
[2020-02-03] MEDS: HYDROmorphone 1 MG/ML, 1ML INJ IV PRN ×3 (09:12→17:21)
[2020-02-03] MEDS: SODIUM CHLORIDE FLUSH 10ML SYR IVF SCH ×2 (09:12→23:06)
[2020-02-03 13:00] VITALS: BP 118/83
[2020-02-03 18:52] VITALS: BP 121/81
[2020-02-03] MEDS: TRAZODONE 100MG TABLET PO SCH (23:06)
[2020-02-04 01:23] VITALS: BP 115/79
[2020-02-04] MEDS: OXYcodone IR 5MG TABLET PO PRN ×3 (03:53→14:09)
[2020-02-04 07:54] VITALS: BP 110/77
[2020-02-04] MEDS: FENTANYL REMOVE PATCH NOTE XX SCH (09:00)
[2020-02-04] MEDS: MIDODRINE 5 MG TABLET PO SCH ×3 (09:00→22:37)
[2020-02-04 09:34] VITALS: BP 122/81
[2020-02-04] MEDS: LACTULOSE 20 GM/30 ML UDC PO SCH (09:35)
[2020-02-04] MEDS: HYDROmorphone 1 MG/ML, 1ML INJ IV PRN ×3 (09:35→17:56)
[2020-02-04] MEDS: DOCUSATE 100 MG CAPSULE PO SCH ×2 (09:36→22:33)
[2020-02-04] MEDS: FUROSEMIDE 20 MG TABLET PO SCH ×2 (09:36→17:56)
[2020-02-04] MEDS: GABAPENTIN 300 MG CAPSULE PO SCH ×3 (09:36→22:33)
[2020-02-04] MEDS: MAGNESIUM OXIDE 400 MG TABLET PO SCH (09:36)
[2020-02-04] MEDS: BUPROPION 100 MG TABLET PO SCH ×2 (09:36→13:30)
[2020-02-04] MEDS: SEVELAMER CARBONATE 800MG TAB PO SCH ×3 (09:37→17:24)
[2020-02-04] MEDS: DULOXETINE 30 MG CAPSULE.DR PO SCH (09:37)
[2020-02-04] MEDS: PANTOPRAZOLE 40MG TABLET PO SCH (09:37)
[2020-02-04] MEDS: SODIUM CHLORIDE FLUSH 10ML SYR IVF SCH ×2 (09:37→22:33)
[2020-02-04] MEDS: DAKIN'S SOLUTION 1/4 STRENGTH 1,000 ML IRRIG SOLN EXT SCH (09:38)
[2020-02-04] MEDS: ONDANSETRON 2MG/ML, 2ML IVPush PRN (10:14)
[2020-02-04] MEDS: FENTANYL 100 MCG PATCH TD SCH (10:15)
[2020-02-04] MEDS: HEPARIN 5,000 UNITS/ML, 1ML SQ SCH ×2 (11:07→18:06)
[2020-02-04 13:42] VITALS: BP 110/76
[2020-02-04 17:23] VITALS: BP 119/73
[2020-02-04] MEDS: TRAZODONE 100MG TABLET PO SCH (22:33)
[2020-02-04 22:37] VITALS: BP 128/89
[2020-02-05] MEDS: HEPARIN 5,000 UNITS/ML, 1ML SQ SCH ×3 (02:58→17:24)
[2020-02-05 03:07] VITALS: BP 110/76
[2020-02-05 07:09] VITALS: BP 129/85
[2020-02-05] MEDS: ONDANSETRON 2MG/ML, 2ML IVPush PRN (07:27)
[2020-02-05] MEDS: PANTOPRAZOLE 40MG TABLET PO SCH (07:27)
[2020-02-05] MEDS: DULOXETINE 30 MG CAPSULE.DR PO SCH (07:28)
[2020-02-05] MEDS: FUROSEMIDE 20 MG TABLET PO SCH ×2 (07:29→17:17)
[2020-02-05] MEDS: GABAPENTIN 300 MG CAPSULE PO SCH ×3 (07:29→22:26)
[2020-02-05] MEDS: BUPROPION 100 MG TABLET PO SCH ×2 (07:29→11:23)
[2020-02-05] MEDS: MAGNESIUM OXIDE 400 MG TABLET PO SCH (07:29)
[2020-02-05] MEDS: SEVELAMER CARBONATE 800MG TAB PO SCH ×3 (07:29→17:17)
[2020-02-05] MEDS: DOCUSATE 100 MG CAPSULE PO SCH ×2 (07:30→22:26)
[2020-02-05] MEDS: LACTULOSE 20 GM/30 ML UDC PO SCH (07:30)
[2020-02-05] MEDS: SODIUM CHLORIDE FLUSH 10ML SYR IVF SCH ×2 (07:30→22:30)
[2020-02-05] MEDS: MIDODRINE 5 MG TABLET PO SCH ×3 (07:30→22:30)
[2020-02-05] MEDS: DAKIN'S SOLUTION 1/4 STRENGTH 1,000 ML IRRIG SOLN EXT SCH (07:30)
[2020-02-05] MEDS: HYDROmorphone 1 MG/ML, 1ML INJ IV PRN ×3 (09:29→17:17)
[2020-02-05] MEDS: OXYcodone IR 5MG TABLET PO PRN ×2 (11:23→22:27)
[2020-02-05 13:05] VITALS: BP 119/73
[2020-02-05] MEDS: HYDROmorphone 2 MG/ML, 1ML IVPush PRN (14:18)
[2020-02-05 17:13] VITALS: BP 106/67
[2020-02-05] MEDS: TRAZODONE 100MG TABLET PO SCH (22:27)
[2020-02-05 22:30] VITALS: BP 111/79
[2020-02-06] MEDS: HEPARIN 5,000 UNITS/ML, 1ML SQ SCH ×3 (02:00→17:13)
[2020-02-06 03:55] VITALS: BP 102/60
[2020-02-06] MEDS ORDERED: CATHFLO-ALTEPLASE 2 MG/2 ML CATHFLUSH ONE (04:30)
[2020-02-06] MEDS: MIDODRINE 5 MG TABLET PO SCH ×3 (09:00→21:00)
[2020-02-06 09:59] VITALS: BP 125/84
[2020-02-06] MEDS: HYDROmorphone 1 MG/ML, 1ML INJ IV PRN ×3 (10:03→17:08)
[2020-02-06] MEDS: ONDANSETRON 2MG/ML, 2ML IVPush PRN (10:03)
[2020-02-06] MEDS: PANTOPRAZOLE 40MG TABLET PO SCH (10:04)
[2020-02-06] MEDS: DOCUSATE 100 MG CAPSULE PO SCH ×2 (10:04→21:45)
[2020-02-06] MEDS: DULOXETINE 30 MG CAPSULE.DR PO SCH (10:04)
[2020-02-06] MEDS: LACTULOSE 20 GM/30 ML UDC PO SCH (10:04)
[2020-02-06] MEDS: BUPROPION 100 MG TABLET PO SCH ×2 (10:04→13:48)
[2020-02-06] MEDS: MAGNESIUM OXIDE 400 MG TABLET PO SCH (10:04)
[2020-02-06] MEDS: GABAPENTIN 300 MG CAPSULE PO SCH ×3 (10:04→21:44)
[2020-02-06] MEDS: SEVELAMER CARBONATE 800MG TAB PO SCH ×3 (10:05→16:46)
[2020-02-06] MEDS: SODIUM CHLORIDE FLUSH 10ML SYR IVF SCH ×2 (10:05→21:44)
[2020-02-06] MEDS: DAKIN'S SOLUTION 1/4 STRENGTH 1,000 ML IRRIG SOLN EXT SCH (10:05)
[2020-02-06] MEDS: FUROSEMIDE 20 MG TABLET PO SCH ×2 (10:05→16:45)
[2020-02-06] MEDS: DARBEPOETIN 200 MCG/ML SQ SCH (11:35)
[2020-02-06] MEDS: OXYcodone IR 5MG TABLET PO PRN ×2 (11:36→16:51)
[2020-02-06 12:35] VITALS: BP 135/87
[2020-02-06] MEDS: TRAZODONE 100MG TABLET PO SCH (21:44)
[2020-02-06 21:48] VITALS: BP 115/80
[2020-02-07] MEDS: HEPARIN 5,000 UNITS/ML, 1ML SQ SCH ×3 (01:54→17:43)
[2020-02-07 05:01] VITALS: BP 119/82
[2020-02-07] MEDS: FUROSEMIDE 20 MG TABLET PO SCH ×2 (05:36→17:18)
[2020-02-07 08:22] VITALS: BP 107/62
[2020-02-07] MEDS: HYDROmorphone 1 MG/ML, 1ML INJ IV PRN ×3 (09:37→17:16)
[2020-02-07] MEDS: DULOXETINE 30 MG CAPSULE.DR PO SCH (09:47)
[2020-02-07] MEDS: GABAPENTIN 300 MG CAPSULE PO SCH ×3 (09:47→21:35)
[2020-02-07] MEDS: PANTOPRAZOLE 40MG TABLET PO SCH (09:47)
[2020-02-07] MEDS: MAGNESIUM OXIDE 400 MG TABLET PO SCH (09:47)
[2020-02-07] MEDS: BUPROPION 100 MG TABLET PO SCH ×2 (09:47→13:46)
[2020-02-07] MEDS: FENTANYL 100 MCG PATCH TD SCH (09:47)
[2020-02-07] MEDS: DOCUSATE 100 MG CAPSULE PO SCH ×2 (09:48→21:34)
[2020-02-07] MEDS: ONDANSETRON 2MG/ML, 2ML IVPush PRN (09:48)
[2020-02-07] MEDS: LACTULOSE 20 GM/30 ML UDC PO SCH (09:48)
[2020-02-07] MEDS: SEVELAMER CARBONATE 800MG TAB PO SCH ×3 (09:48→17:18)
[2020-02-07] MEDS: SODIUM CHLORIDE FLUSH 10ML SYR IVF SCH ×2 (09:49→21:36)
[2020-02-07] MEDS: DAKIN'S SOLUTION 1/4 STRENGTH 1,000 ML IRRIG SOLN EXT SCH (09:49)
[2020-02-07] MEDS: MIDODRINE 5 MG TABLET PO SCH ×3 (09:49→21:00)
[2020-02-07] MEDS: OXYcodone IR 5MG TABLET PO PRN ×3 (09:49→21:35)
[2020-02-07] MEDS: FENTANYL REMOVE PATCH NOTE XX SCH (09:49)
[2020-02-07] MEDS: HYDROmorphone 2 MG/ML, 1ML IVPush PRN (11:05)
[2020-02-07 14:44] VITALS: BP 115/78
[2020-02-07 16:36] VITALS: BP 121/82
[2020-02-07] MEDS: PHENAZOPYRIDINE 200 MG TABLET PO PRN (17:43)
[2020-02-07 20:56] VITALS: BP 120/82
[2020-02-07] MEDS: TRAZODONE 100MG TABLET PO SCH (21:34)
[2020-02-07] MEDS: BACLOFEN 10 MG TABLET PO PRN (21:35)
[2020-02-08] MEDS: HEPARIN 5,000 UNITS/ML, 1ML SQ SCH ×3 (02:28→18:28)
[2020-02-08 05:28] VITALS: BP 112/77
[2020-02-08] MEDS: FUROSEMIDE 20 MG TABLET PO SCH ×2 (05:30→17:08)
[2020-02-08] MEDS: OXYcodone IR 5MG TABLET PO PRN ×3 (05:30→21:24)
[2020-02-08 05:40] LABS: BASOPHILS # (AUTO) 0.03 x10^3/uL (0-0.1); BASOPHILS % (AUTO) 0 % (0-1); EOSINOPHILS # (AUTO) 0.25 x10^3/uL (0-0.4); EOSINOPHILS % (AUTO) 3 % (1-7); LYMPHOCYTES # (AUTO) 1.24 x10^3/uL (1-3.4); LYMPHOCYTES % (AUTO) 16 % (22-44); MD NO; MEAN CORPUSCULAR HEMOGLOBIN 27.3 pg (27.5-34.5); MEAN CORPUSCULAR HGB CONC 31.8 g/dL (33.2-36.2); MEAN PLATELET VOLUME 7.9 fL (7.4-10.4); MONOCYTES # (AUTO) 0.64 x10^3/uL (0.2-0.8); MONOCYTES % (AUTO) 8 % (2-9); NEUTROPHILS # (AUTO) 5.48 x10^3/uL (1.8-6.8); NEUTROPHILS % (AUTO) 72 % (42-75); PLATELET COUNT 254 x10^3/uL (130-400); RED BLOOD COUNT 3.46 x10^6/uL (4.38-5.82); RED CELL DISTRIBUTION WIDTH 16.2 % (9.4-14.8)
[2020-02-08 05:55] LABS: ANION GAP 3 mmol/L (5-15); CHLORIDE 105 mmol/L (98-107)
[2020-02-08 05:56] LABS: CREATININE 1.65 mg/dL (0.7-1.3)
[2020-02-08] MEDS: HYDROmorphone 1 MG/ML, 1ML INJ IV PRN ×3 (08:26→18:00)
[2020-02-08] MEDS: SEVELAMER CARBONATE 800MG TAB PO SCH ×3 (08:29→17:07)
[2020-02-08] MEDS: GABAPENTIN 300 MG CAPSULE PO SCH ×3 (08:29→21:23)
[2020-02-08] MEDS: DULOXETINE 30 MG CAPSULE.DR PO SCH (08:29)
[2020-02-08] MEDS: BUPROPION 100 MG TABLET PO SCH ×2 (08:30→13:13)
[2020-02-08] MEDS: MAGNESIUM OXIDE 400 MG TABLET PO SCH (08:31)
[2020-02-08] MEDS: SODIUM CHLORIDE FLUSH 10ML SYR IVF SCH ×2 (08:31→21:23)
[2020-02-08] MEDS: DOCUSATE 100 MG CAPSULE PO SCH ×2 (08:31→21:24)
[2020-02-08] MEDS: MIDODRINE 5 MG TABLET PO SCH ×3 (08:31→21:23)
[2020-02-08] MEDS: LACTULOSE 20 GM/30 ML UDC PO SCH (08:31)
[2020-02-08] MEDS: PANTOPRAZOLE 40MG TABLET PO SCH (08:31)
[2020-02-08 08:48] VITALS: BP 123/85
[2020-02-08] MEDS: DAKIN'S SOLUTION 1/4 STRENGTH 1,000 ML IRRIG SOLN EXT SCH (09:00)
[2020-02-08 14:00] VITALS: BP 111/82
[2020-02-08] MEDS: PHENAZOPYRIDINE 200 MG TABLET PO PRN (18:28)
[2020-02-08 18:45] VITALS: BP 101/67
[2020-02-08] MEDS: TRAZODONE 100MG TABLET PO SCH (21:24)
[2020-02-08] MEDS: BACLOFEN 10 MG TABLET PO PRN (21:24)
[2020-02-09] MEDS: HEPARIN 5,000 UNITS/ML, 1ML SQ SCH ×3 (02:11→17:49)
[2020-02-09 03:59] VITALS: BP 103/70
[2020-02-09] MEDS: OXYcodone IR 5MG TABLET PO PRN ×3 (05:27→21:20)
[2020-02-09] MEDS: FUROSEMIDE 20 MG TABLET PO SCH ×2 (05:28→17:09)
[2020-02-09 08:39] VITALS: BP 99/68
[2020-02-09] MEDS: DOCUSATE 100 MG CAPSULE PO SCH ×2 (08:48→21:22)
[2020-02-09] MEDS: GABAPENTIN 300 MG CAPSULE PO SCH ×3 (08:48→21:20)
[2020-02-09] MEDS: MIDODRINE 5 MG TABLET PO SCH ×3 (08:48→21:00)
[2020-02-09] MEDS: MAGNESIUM OXIDE 400 MG TABLET PO SCH (08:48)
[2020-02-09] MEDS: DULOXETINE 30 MG CAPSULE.DR PO SCH (08:48)
[2020-02-09] MEDS: SEVELAMER CARBONATE 800MG TAB PO SCH ×3 (08:48→17:09)
[2020-02-09] MEDS: BUPROPION 100 MG TABLET PO SCH ×2 (08:48→13:09)
[2020-02-09] MEDS: LACTULOSE 20 GM/30 ML UDC PO SCH (08:48)
[2020-02-09] MEDS: PANTOPRAZOLE 40MG TABLET PO SCH (08:49)
[2020-02-09] MEDS: SODIUM CHLORIDE FLUSH 10ML SYR IVF SCH ×2 (08:49→21:22)
[2020-02-09] MEDS: HYDROmorphone 2 MG/ML, 1ML IVPush PRN (11:02)
[2020-02-09] MEDS: DAKIN'S SOLUTION 1/4 STRENGTH 1,000 ML IRRIG SOLN EXT SCH (11:03)
--- NOTE | 2020-02-09 11:30 | NUR ---
NURSING ACTIVITY SHEET 1. STRAIGHT LEG RAISES X 100 PER DAY: GOAL IS TO PERFORM A STRAIGHT LEG RAISE 1INCH OFF OF THE BED. 2. HEEL SLIDES X 100 PER DAY: GOAL IS TO SLIDE HEEL TO 30 DEGREES OF KNEE EXTENSION 3. LOG ROLL ONTO LEFT SIDE 2 X 5 REPS A DAY: GOAL IS TO LOG ROLL ONTO HIS LEFT SIDE WITH MODERATE ASSIST 1P
[2020-02-09 12:53] VITALS: BP 128/85
[2020-02-09] MEDS: PHENAZOPYRIDINE 200 MG TABLET PO PRN ×2 (13:09→21:20)
[2020-02-09] MEDS: HYDROmorphone 1 MG/ML, 1ML INJ IV PRN ×2 (13:09→17:49)
[2020-02-09 17:13] VITALS: BP 123/69
[2020-02-09] MEDS: ONDANSETRON 2MG/ML, 2ML IVPush PRN (17:49)
[2020-02-09 19:08] VITALS: BP 118/82
[2020-02-09] MEDS: BACLOFEN 10 MG TABLET PO PRN (21:22)
[2020-02-09] MEDS: TRAZODONE 100MG TABLET PO SCH (21:27)
[2020-02-10] MEDS: HEPARIN 5,000 UNITS/ML, 1ML SQ SCH ×3 (02:31→17:33)
[2020-02-10 05:20] VITALS: BP 105/68
[2020-02-10] MEDS: FUROSEMIDE 20 MG TABLET PO SCH ×2 (05:22→17:34)
[2020-02-10] MEDS: OXYcodone IR 5MG TABLET PO PRN ×2 (05:23→20:43)
[2020-02-10 06:31] VITALS: BP 121/75
[2020-02-10] MEDS: MAGNESIUM OXIDE 400 MG TABLET PO SCH (08:18)
[2020-02-10] MEDS: GABAPENTIN 300 MG CAPSULE PO SCH ×3 (08:18→20:42)
[2020-02-10] MEDS: PANTOPRAZOLE 40MG TABLET PO SCH (08:18)
[2020-02-10] MEDS: DULOXETINE 30 MG CAPSULE.DR PO SCH (08:18)
[2020-02-10] MEDS: BUPROPION 100 MG TABLET PO SCH ×2 (08:19→12:47)
[2020-02-10] MEDS: SEVELAMER CARBONATE 800MG TAB PO SCH ×3 (08:19→17:34)
[2020-02-10] MEDS: SODIUM CHLORIDE FLUSH 10ML SYR IVF SCH ×2 (08:20→20:43)
[2020-02-10] MEDS: DAKIN'S SOLUTION 1/4 STRENGTH 1,000 ML IRRIG SOLN EXT SCH (08:20)
[2020-02-10] MEDS: DOCUSATE 100 MG CAPSULE PO SCH ×2 (08:21→20:43)
[2020-02-10] MEDS: LACTULOSE 20 GM/30 ML UDC PO SCH (08:21)
[2020-02-10] MEDS: MIDODRINE 5 MG TABLET PO SCH ×3 (08:21→20:43)
[2020-02-10] MEDS: PHENAZOPYRIDINE 200 MG TABLET PO PRN (09:11)
[2020-02-10] MEDS: FENTANYL REMOVE PATCH NOTE XX SCH (09:12)
[2020-02-10] MEDS: FENTANYL 100 MCG PATCH TD SCH (09:12)
[2020-02-10] MEDS: HYDROmorphone 1 MG/ML, 1ML INJ IV PRN (12:47)
[2020-02-10 13:58] VITALS: BP 126/87
[2020-02-10 20:41] VITALS: BP 130/88
[2020-02-10] MEDS: TRAZODONE 100MG TABLET PO SCH (20:42)
[2020-02-10] MEDS: BACLOFEN 10 MG TABLET PO PRN (20:43)
[2020-02-11] MEDS: HEPARIN 5,000 UNITS/ML, 1ML SQ SCH ×3 (02:14→18:49)
[2020-02-11 05:17] VITALS: BP 139/80
[2020-02-11] MEDS: FUROSEMIDE 20 MG TABLET PO SCH ×2 (05:20→16:48)
[2020-02-11] MEDS: OXYcodone IR 5MG TABLET PO PRN ×4 (05:21→21:41)
[2020-02-11 06:24] VITALS: BP 132/85
[2020-02-11] MEDS: BUPROPION 100 MG TABLET PO SCH ×2 (08:33→12:49)
[2020-02-11] MEDS: GABAPENTIN 300 MG CAPSULE PO SCH ×3 (08:33→21:41)
[2020-02-11] MEDS: MAGNESIUM OXIDE 400 MG TABLET PO SCH (08:33)
[2020-02-11] MEDS: SEVELAMER CARBONATE 800MG TAB PO SCH ×3 (08:33→16:47)
[2020-02-11] MEDS: DOCUSATE 100 MG CAPSULE PO SCH ×2 (08:33→21:41)
[2020-02-11] MEDS: MIDODRINE 5 MG TABLET PO SCH ×3 (08:34→21:00)
[2020-02-11] MEDS: PANTOPRAZOLE 40MG TABLET PO SCH (08:34)
[2020-02-11] MEDS: LACTULOSE 20 GM/30 ML UDC PO SCH (08:34)
[2020-02-11] MEDS: DULOXETINE 30 MG CAPSULE.DR PO SCH (08:34)
[2020-02-11] MEDS: SODIUM CHLORIDE FLUSH 10ML SYR IVF SCH ×2 (08:39→21:43)
[2020-02-11] MEDS: DAKIN'S SOLUTION 1/4 STRENGTH 1,000 ML IRRIG SOLN EXT SCH (09:00)
[2020-02-11] MEDS: HYDROmorphone 1 MG/ML, 1ML INJ IV PRN ×3 (09:02→18:17)
[2020-02-11 12:25] VITALS: BP 125/84
[2020-02-11 21:00] VITALS: BP 135/82
[2020-02-11] MEDS: TRAZODONE 100MG TABLET PO SCH (21:41)
[2020-02-12] MEDS: HEPARIN 5,000 UNITS/ML, 1ML SQ SCH ×3 (01:54→18:05)
[2020-02-12 05:38] VITALS: BP 118/77
[2020-02-12] MEDS: FUROSEMIDE 20 MG TABLET PO SCH ×2 (05:40→17:38)
[2020-02-12] MEDS: OXYcodone IR 5MG TABLET PO PRN ×3 (05:48→21:16)
[2020-02-12] MEDS: DAKIN'S SOLUTION 1/4 STRENGTH 1,000 ML IRRIG SOLN EXT SCH (08:10)
[2020-02-12] MEDS: MIDODRINE 5 MG TABLET PO SCH ×3 (08:11→21:00)
[2020-02-12] MEDS: SODIUM CHLORIDE FLUSH 10ML SYR IVF SCH ×2 (08:25→21:55)
[2020-02-12] MEDS: SEVELAMER CARBONATE 800MG TAB PO SCH ×3 (08:25→17:38)
[2020-02-12] MEDS: MAGNESIUM OXIDE 400 MG TABLET PO SCH (08:25)
[2020-02-12] MEDS: DULOXETINE 30 MG CAPSULE.DR PO SCH (08:25)
[2020-02-12] MEDS: HYDROmorphone 1 MG/ML, 1ML INJ IV PRN ×3 (08:25→17:40)
[2020-02-12] MEDS: GABAPENTIN 300 MG CAPSULE PO SCH ×3 (08:26→21:54)
[2020-02-12] MEDS: PANTOPRAZOLE 40MG TABLET PO SCH (08:26)
[2020-02-12] MEDS: DOCUSATE 100 MG CAPSULE PO SCH ×2 (08:26→21:15)
[2020-02-12] MEDS: BUPROPION 100 MG TABLET PO SCH ×2 (08:26→12:08)
[2020-02-12] MEDS: LACTULOSE 20 GM/30 ML UDC PO SCH (08:27)
[2020-02-12 08:37] VITALS: BP 138/86
[2020-02-12] MEDS: HYDROmorphone 2 MG/ML, 1ML IVPush PRN (09:36)
[2020-02-12 14:10] VITALS: BP 124/84
[2020-02-12 16:49] LABS: MICROSCOPIC AUTO
[2020-02-12] MEDS: ONDANSETRON 2MG/ML, 2ML IVPush PRN (17:36)
[2020-02-12 19:08] VITALS: BP 101/66
[2020-02-12] MEDS: TRAZODONE 100MG TABLET PO SCH (21:16)
[2020-02-13] MEDS: HEPARIN 5,000 UNITS/ML, 1ML SQ SCH ×3 (02:49→18:17)
[2020-02-13 02:51] VITALS: BP 113/76
[2020-02-13] MEDS: FUROSEMIDE 20 MG TABLET PO SCH ×2 (05:57→17:29)
[2020-02-13 06:24] LABS: BASOPHILS # (AUTO) 0.03 x10^3/uL (0-0.1); BASOPHILS % (AUTO) 0 % (0-1); EOSINOPHILS # (AUTO) 0.21 x10^3/uL (0-0.4); EOSINOPHILS % (AUTO) 3 % (1-7); LYMPHOCYTES # (AUTO) 0.99 x10^3/uL (1-3.4); LYMPHOCYTES % (AUTO) 14 % (22-44); MD NO; MEAN CORPUSCULAR HEMOGLOBIN 27.3 pg (27.5-34.5); MEAN CORPUSCULAR HGB CONC 31.7 g/dL (33.2-36.2); MEAN CORPUSCULAR VOLUME 86.1 fL (81-97); MEAN PLATELET VOLUME 8.1 fL (7.4-10.4); MONOCYTES # (AUTO) 0.58 x10^3/uL (0.2-0.8); MONOCYTES % (AUTO) 8 % (2-9); NEUTROPHILS # (AUTO) 5.15 x10^3/uL (1.8-6.8); NEUTROPHILS % (AUTO) 74 % (42-75); PLATELET COUNT 263 x10^3/uL (130-400); RED BLOOD COUNT 3.31 x10^6/uL (4.38-5.82); RED CELL DISTRIBUTION WIDTH 16.2 % (9.4-14.8)
[2020-02-13 06:28] VITALS: BP 122/77
[2020-02-13 06:29] LABS: ANION GAP 2 mmol/L (5-15); CHLORIDE 108 mmol/L (98-107)
[2020-02-13 06:31] LABS: CREATININE 1.55 mg/dL (0.7-1.3)
[2020-02-13] MEDS: PANTOPRAZOLE 40MG TABLET PO SCH (08:30)
[2020-02-13] MEDS: DULOXETINE 30 MG CAPSULE.DR PO SCH (08:31)
[2020-02-13] MEDS: DOCUSATE 100 MG CAPSULE PO SCH ×2 (08:31→21:10)
[2020-02-13] MEDS: BUPROPION 100 MG TABLET PO SCH ×2 (08:31→11:52)
[2020-02-13] MEDS: MAGNESIUM OXIDE 400 MG TABLET PO SCH (08:31)
[2020-02-13] MEDS: LACTULOSE 20 GM/30 ML UDC PO SCH (08:31)
[2020-02-13] MEDS: SEVELAMER CARBONATE 800MG TAB PO SCH ×3 (08:31→17:17)
[2020-02-13] MEDS: GABAPENTIN 300 MG CAPSULE PO SCH ×3 (08:32→21:10)
[2020-02-13] MEDS: MIDODRINE 5 MG TABLET PO SCH ×3 (08:32→21:00)
[2020-02-13] MEDS: HYDROmorphone 1 MG/ML, 1ML INJ IV PRN ×3 (08:33→17:29)
[2020-02-13] MEDS: FENTANYL REMOVE PATCH NOTE XX SCH (09:00)
[2020-02-13] MEDS: DAKIN'S SOLUTION 1/4 STRENGTH 1,000 ML IRRIG SOLN EXT SCH (09:00)
[2020-02-13] MEDS: DARBEPOETIN 200 MCG/ML SQ SCH (09:25)
[2020-02-13] MEDS: FENTANYL 100 MCG PATCH TD SCH (09:26)
[2020-02-13] MEDS: SODIUM CHLORIDE FLUSH 10ML SYR IVF SCH ×2 (09:26→21:10)
[2020-02-13 14:21] VITALS: BP 113/79
[2020-02-13] MEDS: OXYcodone IR 5MG TABLET PO PRN ×2 (16:49→21:14)
[2020-02-13 18:38] VITALS: BP 123/73
[2020-02-13] MEDS: TRAZODONE 100MG TABLET PO SCH (21:10)
[2020-02-14] MEDS: HEPARIN 5,000 UNITS/ML, 1ML SQ SCH ×3 (02:08→17:25)
[2020-02-14 02:09] VITALS: BP 128/85
[2020-02-14] MEDS: FUROSEMIDE 20 MG TABLET PO SCH ×2 (05:40→17:24)
[2020-02-14 06:58] VITALS: BP 137/76
[2020-02-14] MEDS: SEVELAMER CARBONATE 800MG TAB PO SCH ×3 (08:14→17:25)
[2020-02-14] MEDS: PANTOPRAZOLE 40MG TABLET PO SCH (08:14)
[2020-02-14] MEDS: BUPROPION 100 MG TABLET PO SCH ×2 (08:14→13:00)
[2020-02-14] MEDS: DOCUSATE 100 MG CAPSULE PO SCH ×2 (08:15→19:44)
[2020-02-14] MEDS: GABAPENTIN 300 MG CAPSULE PO SCH ×3 (08:15→19:44)
[2020-02-14] MEDS: DULOXETINE 30 MG CAPSULE.DR PO SCH (08:15)
[2020-02-14] MEDS: MAGNESIUM OXIDE 400 MG TABLET PO SCH (08:15)
[2020-02-14] MEDS: LACTULOSE 20 GM/30 ML UDC PO SCH (08:15)
[2020-02-14] MEDS: SODIUM CHLORIDE FLUSH 10ML SYR IVF SCH ×2 (08:15→19:43)
[2020-02-14] MEDS: HYDROmorphone 1 MG/ML, 1ML INJ IV PRN ×2 (08:16→10:49)
[2020-02-14] MEDS: MIDODRINE 5 MG TABLET PO SCH (08:16)
[2020-02-14] MEDS: DAKIN'S SOLUTION 1/4 STRENGTH 1,000 ML IRRIG SOLN EXT SCH ×2 (09:00→15:35)
[2020-02-14] MEDS: LACTOBACILLUS CHEW TABLET PO SCH ×3 (10:26→19:44)
[2020-02-14] MEDS: OXYcodone IR 5MG TABLET PO PRN ×2 (10:49→19:44)
[2020-02-14] MEDS ORDERED: HYDROmorphone 1 MG/ML, 1ML INJ IM PRN (13:00)
[2020-02-14 14:00] VITALS: BP 119/77
[2020-02-14] MEDS: FERROUS SULFATE 325 MG TABLET PO SCH (17:56)
[2020-02-14 18:25] VITALS: BP 136/89
[2020-02-14] MEDS: TRAZODONE 100MG TABLET PO SCH (19:44)
[2020-02-15] MEDS: HEPARIN 5,000 UNITS/ML, 1ML SQ SCH ×3 (01:44→17:03)
[2020-02-15 05:42] VITALS: BP 112/83
[2020-02-15] MEDS: FUROSEMIDE 20 MG TABLET PO SCH ×2 (05:51→17:03)
[2020-02-15] MEDS: DAKIN'S SOLUTION 1/4 STRENGTH 1,000 ML IRRIG SOLN EXT SCH (08:32)
[2020-02-15] MEDS: SODIUM CHLORIDE FLUSH 10ML SYR IVF SCH ×2 (08:47→21:49)
[2020-02-15] MEDS: ONDANSETRON 2MG/ML, 2ML IVPush PRN (08:48)
[2020-02-15] MEDS: HYDROmorphone 1 MG/ML, 1ML INJ IV PRN ×3 (08:48→17:53)
[2020-02-15] MEDS: LACTULOSE 20 GM/30 ML UDC PO SCH (08:49)
[2020-02-15] MEDS: SEVELAMER CARBONATE 800MG TAB PO SCH ×3 (08:51→17:03)
[2020-02-15] MEDS: LACTOBACILLUS CHEW TABLET PO SCH ×3 (08:52→21:49)
[2020-02-15] MEDS: MAGNESIUM OXIDE 400 MG TABLET PO SCH (08:52)
[2020-02-15] MEDS: PANTOPRAZOLE 40MG TABLET PO SCH (08:53)
[2020-02-15] MEDS: DULOXETINE 30 MG CAPSULE.DR PO SCH (08:53)
[2020-02-15] MEDS: DOCUSATE 100 MG CAPSULE PO SCH ×2 (08:53→21:49)
[2020-02-15] MEDS: BUPROPION 100 MG TABLET PO SCH ×2 (08:53→12:03)
[2020-02-15] MEDS: GABAPENTIN 300 MG CAPSULE PO SCH ×3 (08:53→21:49)
[2020-02-15 13:21] VITALS: BP 123/84
[2020-02-15] MEDS: OXYcodone IR 5MG TABLET PO PRN (14:47)
[2020-02-15 19:24] VITALS: BP 113/75
[2020-02-15] MEDS: TRAZODONE 100MG TABLET PO SCH (21:49)
[2020-02-16 01:21] VITALS: BP 117/73
[2020-02-16] MEDS: HEPARIN 5,000 UNITS/ML, 1ML SQ SCH ×3 (02:13→18:45)
[2020-02-16] MEDS: OXYcodone IR 5MG TABLET PO PRN ×2 (04:08→11:09)
[2020-02-16] MEDS: FUROSEMIDE 20 MG TABLET PO SCH ×2 (05:38→17:59)
[2020-02-16 06:34] VITALS: BP 121/79
[2020-02-16] MEDS: DAKIN'S SOLUTION 1/4 STRENGTH 1,000 ML IRRIG SOLN EXT SCH (08:17)
[2020-02-16] MEDS: PANTOPRAZOLE 40MG TABLET PO SCH (08:19)
[2020-02-16] MEDS: BUPROPION 100 MG TABLET PO SCH ×2 (08:19→12:27)
[2020-02-16] MEDS: SEVELAMER CARBONATE 800MG TAB PO SCH ×3 (08:19→17:01)
[2020-02-16] MEDS: SODIUM CHLORIDE FLUSH 10ML SYR IVF SCH ×2 (08:20→19:59)
[2020-02-16] MEDS: DOCUSATE 100 MG CAPSULE PO SCH ×2 (08:20→19:59)
[2020-02-16] MEDS: FENTANYL REMOVE PATCH NOTE XX SCH (08:20)
[2020-02-16] MEDS: FENTANYL 75 MCG PATCH TD SCH (08:20)
[2020-02-16] MEDS: LACTOBACILLUS CHEW TABLET PO SCH ×3 (08:21→19:59)
[2020-02-16] MEDS: MAGNESIUM OXIDE 400 MG TABLET PO SCH (08:21)
[2020-02-16] MEDS: LACTULOSE 20 GM/30 ML UDC PO SCH (08:21)
[2020-02-16] MEDS: DULOXETINE 30 MG CAPSULE.DR PO SCH (08:21)
[2020-02-16] MEDS: GABAPENTIN 300 MG CAPSULE PO SCH ×3 (08:21→19:58)
[2020-02-16] MEDS: HYDROmorphone 1 MG/ML, 1ML INJ IV PRN ×4 (08:24→17:59)
[2020-02-16 12:45] VITALS: BP 131/78
[2020-02-16] MEDS: FERROUS SULFATE 325 MG TABLET PO SCH (16:24)
[2020-02-16] MEDS: ONDANSETRON 2MG/ML, 2ML IVPush PRN (17:59)
[2020-02-16 19:21] VITALS: BP 133/72
[2020-02-16 19:46] VITALS: BP 93/56
[2020-02-16] MEDS: TRAZODONE 100MG TABLET PO SCH (19:59)
[2020-02-17 01:26] VITALS: BP 105/72
[2020-02-17] MEDS: HEPARIN 5,000 UNITS/ML, 1ML SQ SCH ×3 (03:24→21:17)
[2020-02-17] MEDS: FUROSEMIDE 20 MG TABLET PO SCH ×2 (06:16→16:56)
[2020-02-17] MEDS: LACTULOSE 20 GM/30 ML UDC PO SCH (08:07)
[2020-02-17] MEDS: BUPROPION 100 MG TABLET PO SCH ×2 (08:07→12:38)
[2020-02-17] MEDS: LACTOBACILLUS CHEW TABLET PO SCH ×3 (08:07→21:17)
[2020-02-17] MEDS: SEVELAMER CARBONATE 800MG TAB PO SCH ×3 (08:07→16:55)
[2020-02-17] MEDS: PANTOPRAZOLE 40MG TABLET PO SCH (08:07)
[2020-02-17] MEDS: DULOXETINE 30 MG CAPSULE.DR PO SCH (08:07)
[2020-02-17] MEDS: OXYcodone IR 5MG TABLET PO PRN ×2 (08:07→21:20)
[2020-02-17] MEDS: GABAPENTIN 300 MG CAPSULE PO SCH ×3 (08:07→21:17)
[2020-02-17] MEDS: DOCUSATE 100 MG CAPSULE PO SCH ×2 (08:07→21:17)
[2020-02-17] MEDS: DAKIN'S SOLUTION 1/4 STRENGTH 1,000 ML IRRIG SOLN EXT SCH (08:08)
[2020-02-17] MEDS: MAGNESIUM OXIDE 400 MG TABLET PO SCH (08:08)
[2020-02-17] MEDS: SODIUM CHLORIDE FLUSH 10ML SYR IVF SCH ×2 (08:08→21:21)
[2020-02-17] MEDS: HYDROmorphone 1 MG/ML, 1ML INJ IV PRN ×3 (08:12→17:42)
[2020-02-17 08:16] VITALS: BP 126/78
[2020-02-17 10:00] LABS: BASOPHILS # (AUTO) 0.04 x10^3/uL (0-0.1); BASOPHILS % (AUTO) 1 % (0-1); EOSINOPHILS # (AUTO) 0.29 x10^3/uL (0-0.4); EOSINOPHILS % (AUTO) 3 % (1-7); LYMPHOCYTES # (AUTO) 1.07 x10^3/uL (1-3.4); LYMPHOCYTES % (AUTO) 13 % (22-44); MD NO; MEAN CORPUSCULAR HEMOGLOBIN 26.5 pg (27.5-34.5); MEAN CORPUSCULAR HGB CONC 31.3 g/dL (33.2-36.2); MEAN CORPUSCULAR VOLUME 84.8 fL (81-97); MEAN PLATELET VOLUME 7.9 fL (7.4-10.4); MONOCYTES # (AUTO) 0.42 x10^3/uL (0.2-0.8); MONOCYTES % (AUTO) 5 % (2-9); NEUTROPHILS # (AUTO) 6.61 x10^3/uL (1.8-6.8); NEUTROPHILS % (AUTO) 79 % (42-75); PLATELET COUNT 320 x10^3/uL (130-400); RED BLOOD COUNT 3.82 x10^6/uL (4.38-5.82); RED CELL DISTRIBUTION WIDTH 15.7 % (9.4-14.8)
[2020-02-17 10:04] LABS: ANION GAP 7 mmol/L (5-15); CALCIUM 9.1 mg/dL (8.5-10.1); CHLORIDE 103 mmol/L (98-107); CREATININE 1.75 mg/dL (0.7-1.3)
[2020-02-17 13:42] VITALS: BP 130/85
[2020-02-17 20:47] VITALS: BP 99/65
[2020-02-17] MEDS: TRAZODONE 100MG TABLET PO SCH (21:17)
[2020-02-18 05:05] VITALS: BP 130/81
[2020-02-18] MEDS: FUROSEMIDE 20 MG TABLET PO SCH ×2 (05:07→18:30)
[2020-02-18] MEDS: HEPARIN 5,000 UNITS/ML, 1ML SQ SCH ×3 (05:07→21:20)
[2020-02-18] MEDS: OXYcodone IR 5MG TABLET PO PRN ×3 (05:07→18:29)
[2020-02-18 06:34] VITALS: BP 112/76
[2020-02-18 07:38] LABS: ALBUMIN 2.2 g/dL (3.4-5.0); ANION GAP 7 mmol/L (5-15); CALCIUM 9.2 mg/dL (8.5-10.1); CHLORIDE 104 mmol/L (98-107)
[2020-02-18 07:42] LABS: ALANINE AMINOTRANSFERASE 14 U/L (12-78); ALKALINE PHOSPHATASE 126 U/L (45-117); BILIRUBIN,TOTAL 0.3 mg/dL (0.2-1.0); CREATININE 1.76 mg/dL (0.7-1.3); TOTAL PROTEIN 6.6 g/dL (6.4-8.2)
[2020-02-18] MEDS: GABAPENTIN 300 MG CAPSULE PO SCH ×3 (08:17→21:20)
[2020-02-18] MEDS: PANTOPRAZOLE 40MG TABLET PO SCH (08:17)
[2020-02-18] MEDS: DOCUSATE 100 MG CAPSULE PO SCH ×2 (08:17→21:20)
[2020-02-18] MEDS: DULOXETINE 30 MG CAPSULE.DR PO SCH (08:18)
[2020-02-18] MEDS: MAGNESIUM OXIDE 400 MG TABLET PO SCH (08:18)
[2020-02-18] MEDS: LACTOBACILLUS CHEW TABLET PO SCH ×3 (08:18→21:24)
[2020-02-18] MEDS: SEVELAMER CARBONATE 800MG TAB PO SCH ×3 (08:18→17:15)
[2020-02-18] MEDS: LACTULOSE 20 GM/30 ML UDC PO SCH (08:18)
[2020-02-18] MEDS: BUPROPION 100 MG TABLET PO SCH ×2 (08:18→12:28)
[2020-02-18] MEDS: SODIUM CHLORIDE FLUSH 10ML SYR IVF SCH ×2 (08:19→21:24)
[2020-02-18] MEDS: DAKIN'S SOLUTION 1/4 STRENGTH 1,000 ML IRRIG SOLN EXT SCH (08:19)
[2020-02-18] MEDS: HYDROmorphone 1 MG/ML, 1ML INJ IV PRN ×3 (08:19→18:29)
[2020-02-18] MEDS: ONDANSETRON 2MG/ML, 2ML IVPush PRN (08:20)
[2020-02-18 13:35] VITALS: BP 114/77
[2020-02-18] MEDS: FERROUS SULFATE 325 MG TABLET PO SCH (17:15)
[2020-02-18 18:47] VITALS: BP 119/78
[2020-02-18] MEDS: CATHFLO-ALTEPLASE 2 MG/2 ML CATHFLUSH ONE ×2 (20:00→21:21)
[2020-02-18] MEDS: TRAZODONE 100MG TABLET PO SCH (21:20)
[2020-02-19 03:30] VITALS: BP 99/65
[2020-02-19 05:55] VITALS: BP 121/81
[2020-02-19] MEDS: FUROSEMIDE 20 MG TABLET PO SCH ×2 (05:56→17:40)
[2020-02-19] MEDS: HEPARIN 5,000 UNITS/ML, 1ML SQ SCH ×3 (05:56→21:16)
[2020-02-19 06:39] VITALS: BP 100/66
[2020-02-19 06:52] VITALS: BP 146/70
[2020-02-19] MEDS: FENTANYL REMOVE PATCH NOTE XX SCH (08:30)
[2020-02-19] MEDS: LACTULOSE 20 GM/30 ML UDC PO SCH (08:31)
[2020-02-19] MEDS: BUPROPION 100 MG TABLET PO SCH ×2 (08:32→12:34)
[2020-02-19] MEDS: DULOXETINE 30 MG CAPSULE.DR PO SCH (08:32)
[2020-02-19] MEDS: GABAPENTIN 300 MG CAPSULE PO SCH ×3 (08:32→21:21)
[2020-02-19] MEDS: MAGNESIUM OXIDE 400 MG TABLET PO SCH (08:32)
[2020-02-19] MEDS: SEVELAMER CARBONATE 800MG TAB PO SCH ×3 (08:32→17:01)
[2020-02-19] MEDS: LACTOBACILLUS CHEW TABLET PO SCH ×3 (08:32→21:22)
[2020-02-19] MEDS: PANTOPRAZOLE 40MG TABLET PO SCH (08:32)
[2020-02-19] MEDS: HYDROmorphone 1 MG/ML, 1ML INJ IV PRN ×3 (08:33→17:40)
[2020-02-19] MEDS: DOCUSATE 100 MG CAPSULE PO SCH ×2 (08:33→21:22)
[2020-02-19] MEDS: DAKIN'S SOLUTION 1/4 STRENGTH 1,000 ML IRRIG SOLN EXT SCH (09:00)
[2020-02-19] MEDS: SODIUM CHLORIDE FLUSH 10ML SYR IVF SCH ×2 (09:00→21:21)
[2020-02-19] MEDS: FENTANYL 75 MCG PATCH TD SCH (10:34)
[2020-02-19] MEDS: HYDROmorphone 1 MG/ML, 1ML INJ IVPush PRN (11:26)
[2020-02-19 13:40] VITALS: BP 113/67
[2020-02-19] MEDS: OXYcodone IR 5MG TABLET PO PRN ×2 (16:01→21:22)
[2020-02-19 21:13] VITALS: BP 99/67
[2020-02-19] MEDS: TRAZODONE 100MG TABLET PO SCH (21:22)
[2020-02-20] MEDS: OXYcodone IR 5MG TABLET PO PRN ×2 (03:02→20:02)
[2020-02-20 05:02] VITALS: BP 120/79
[2020-02-20] MEDS: FUROSEMIDE 20 MG TABLET PO SCH ×2 (05:03→17:20)
[2020-02-20] MEDS: HEPARIN 5,000 UNITS/ML, 1ML SQ SCH ×3 (05:04→21:37)
[2020-02-20] MEDS: SODIUM CHLORIDE FLUSH 10ML SYR IVF SCH ×2 (09:00→21:37)
[2020-02-20] MEDS: DAKIN'S SOLUTION 1/4 STRENGTH 1,000 ML IRRIG SOLN EXT SCH (09:00)
[2020-02-20] MEDS: SEVELAMER CARBONATE 800MG TAB PO SCH ×3 (09:21→17:18)
[2020-02-20] MEDS: LACTULOSE 20 GM/30 ML UDC PO SCH (09:21)
[2020-02-20] MEDS: DOCUSATE 100 MG CAPSULE PO SCH ×2 (09:21→21:37)
[2020-02-20] MEDS: HYDROmorphone 1 MG/ML, 1ML INJ IVPush PRN (09:21)
[2020-02-20] MEDS: PANTOPRAZOLE 40MG TABLET PO SCH (09:22)
[2020-02-20] MEDS: LACTOBACILLUS CHEW TABLET PO SCH ×3 (09:22→21:36)
[2020-02-20] MEDS: GABAPENTIN 300 MG CAPSULE PO SCH ×3 (09:22→21:37)
[2020-02-20] MEDS: BUPROPION 100 MG TABLET PO SCH ×2 (09:22→12:28)
[2020-02-20] MEDS: MAGNESIUM OXIDE 400 MG TABLET PO SCH (09:22)
[2020-02-20] MEDS: DULOXETINE 30 MG CAPSULE.DR PO SCH (09:22)
[2020-02-20 10:07] VITALS: BP 120/84
[2020-02-20] MEDS: DARBEPOETIN 200 MCG/ML SQ SCH ×2 (11:39→11:42)
[2020-02-20] MEDS: HYDROmorphone 1 MG/ML, 1ML INJ IV PRN ×2 (12:28→17:19)
[2020-02-20 12:33] VITALS: BP 106/66
[2020-02-20] MEDS: FERROUS SULFATE 325 MG TABLET PO SCH (17:18)
[2020-02-20 17:20] VITALS: BP 127/79
[2020-02-20] MEDS: TRAZODONE 100MG TABLET PO SCH (21:37)
[2020-02-21 02:38] VITALS: BP 105/71
[2020-02-21] MEDS: FUROSEMIDE 20 MG TABLET PO SCH ×2 (06:08→16:40)
[2020-02-21] MEDS: HEPARIN 5,000 UNITS/ML, 1ML SQ SCH ×3 (06:08→20:48)
[2020-02-21 06:47] LABS: ALANINE AMINOTRANSFERASE 15 U/L (12-78); ANION GAP 5 mmol/L (5-15); CALCIUM 9.2 mg/dL (8.5-10.1); CHLORIDE 106 mmol/L (98-107); CREATININE 1.84 mg/dL (0.7-1.3)
[2020-02-21 06:50] LABS: ALKALINE PHOSPHATASE 113 U/L (45-117); BILIRUBIN,TOTAL 0.3 mg/dL (0.2-1.0); TOTAL PROTEIN 6.3 g/dL (6.4-8.2)
[2020-02-21] MEDS: LACTOBACILLUS CHEW TABLET PO SCH ×3 (08:46→20:48)
[2020-02-21] MEDS: DULOXETINE 30 MG CAPSULE.DR PO SCH (08:46)
[2020-02-21] MEDS: SEVELAMER CARBONATE 800MG TAB PO SCH ×3 (08:46→16:40)
[2020-02-21] MEDS: GABAPENTIN 300 MG CAPSULE PO SCH ×3 (08:46→20:48)
[2020-02-21] MEDS: PANTOPRAZOLE 40MG TABLET PO SCH (08:46)
[2020-02-21] MEDS: DOCUSATE 100 MG CAPSULE PO SCH ×2 (08:46→20:48)
[2020-02-21] MEDS: MAGNESIUM OXIDE 400 MG TABLET PO SCH (08:47)
[2020-02-21] MEDS: LACTULOSE 20 GM/30 ML UDC PO SCH (08:47)
[2020-02-21] MEDS: HYDROmorphone 1 MG/ML, 1ML INJ IV PRN ×3 (08:47→16:40)
[2020-02-21] MEDS: BUPROPION 100 MG TABLET PO SCH ×2 (08:47→11:33)
[2020-02-21] MEDS: DAKIN'S SOLUTION 1/4 STRENGTH 1,000 ML IRRIG SOLN EXT SCH (08:47)
[2020-02-21] MEDS: SODIUM CHLORIDE FLUSH 10ML SYR IVF SCH ×2 (08:55→20:48)
[2020-02-21] MEDS: OXYcodone IR 5MG TABLET PO PRN (11:33)
[2020-02-21 11:39] VITALS: BP 124/84
[2020-02-21 12:46] VITALS: BP 124/76
[2020-02-21 16:48] VITALS: BP 121/81
[2020-02-21] MEDS: TRAZODONE 100MG TABLET PO SCH (20:48)
[2020-02-21 20:51] VITALS: BP 130/85
[2020-02-22] MEDS: FUROSEMIDE 20 MG TABLET PO SCH ×2 (05:28→17:47)
[2020-02-22] MEDS: HEPARIN 5,000 UNITS/ML, 1ML SQ SCH ×3 (05:28→20:37)
[2020-02-22 05:40] VITALS: BP 113/79
[2020-02-22 06:23] VITALS: BP 119/82
[2020-02-22] MEDS ORDERED: ALBUTEROL SULFATE 2.5 MG/3 ML ONE (08:13)
[2020-02-22] MEDS: SEVELAMER CARBONATE 800MG TAB PO SCH ×3 (08:30→17:15)
[2020-02-22] MEDS: DOCUSATE 100 MG CAPSULE PO SCH ×2 (08:30→20:36)
[2020-02-22] MEDS: PANTOPRAZOLE 40MG TABLET PO SCH (08:30)
[2020-02-22] MEDS: LACTOBACILLUS CHEW TABLET PO SCH ×3 (08:30→20:36)
[2020-02-22] MEDS: LACTULOSE 20 GM/30 ML UDC PO SCH (08:30)
[2020-02-22] MEDS: MAGNESIUM OXIDE 400 MG TABLET PO SCH (08:30)
[2020-02-22] MEDS: FENTANYL REMOVE PATCH NOTE XX SCH (08:30)
[2020-02-22] MEDS: GABAPENTIN 300 MG CAPSULE PO SCH ×3 (08:31→20:36)
[2020-02-22] MEDS: DULOXETINE 30 MG CAPSULE.DR PO SCH (08:31)
[2020-02-22] MEDS: HYDROmorphone 1 MG/ML, 1ML INJ IV PRN ×2 (08:31→17:46)
[2020-02-22] MEDS: BUPROPION 100 MG TABLET PO SCH ×2 (08:31→12:12)
[2020-02-22] MEDS: ONDANSETRON 2MG/ML, 2ML IVPush PRN (08:48)
[2020-02-22] MEDS: DAKIN'S SOLUTION 1/4 STRENGTH 1,000 ML IRRIG SOLN EXT SCH (09:00)
[2020-02-22] MEDS: SODIUM CHLORIDE FLUSH 10ML SYR IVF SCH ×2 (09:00→20:37)
[2020-02-22] MEDS ORDERED: ALBUTEROL SULFATE 2.5 MG/3 ML NPPB ONE (09:00)
[2020-02-22] MEDS: FENTANYL 75 MCG PATCH TD SCH (10:26)
[2020-02-22] MEDS: OXYcodone IR 5MG TABLET PO PRN ×2 (13:31→20:37)
[2020-02-22 14:00] VITALS: BP 112/77
[2020-02-22] MEDS: FERROUS SULFATE 325 MG TABLET PO SCH (16:47)
[2020-02-22] MEDS: TRAZODONE 100MG TABLET PO SCH (20:36)
[2020-02-22 20:42] VITALS: BP 120/79
[2020-02-23] MEDS: HEPARIN 5,000 UNITS/ML, 1ML SQ SCH ×3 (05:20→21:16)
[2020-02-23 05:27] VITALS: BP 105/66
[2020-02-23] MEDS: FUROSEMIDE 20 MG TABLET PO SCH ×2 (05:47→17:50)
[2020-02-23] MEDS: OXYcodone IR 5MG TABLET PO PRN ×3 (05:48→17:51)
[2020-02-23 09:00] VITALS: BP 108/67
[2020-02-23] MEDS: HYDROmorphone 1 MG/ML, 1ML INJ IV PRN ×3 (09:08→17:50)
[2020-02-23] MEDS ORDERED: GADOTERATE 10 MMOL/20 ML VIAL ONE (10:58)
[2020-02-23] MEDS ORDERED: GADOTERATE 10 MMOL/20 ML SYR ONE (10:58)
[2020-02-23] MEDS: DOCUSATE 100 MG CAPSULE PO SCH ×2 (11:08→21:17)
[2020-02-23] MEDS: PANTOPRAZOLE 40MG TABLET PO SCH (11:09)
[2020-02-23] MEDS: SEVELAMER CARBONATE 800MG TAB PO SCH ×3 (11:09→17:51)
[2020-02-23] MEDS: MAGNESIUM OXIDE 400 MG TABLET PO SCH (11:09)
[2020-02-23] MEDS: DULOXETINE 30 MG CAPSULE.DR PO SCH (11:09)
[2020-02-23] MEDS: LACTOBACILLUS CHEW TABLET PO SCH ×3 (11:09→21:16)
[2020-02-23] MEDS: LACTULOSE 20 GM/30 ML UDC PO SCH (11:09)
[2020-02-23] MEDS: BUPROPION 100 MG TABLET PO SCH ×2 (11:10→13:43)
[2020-02-23] MEDS: DAKIN'S SOLUTION 1/4 STRENGTH 1,000 ML IRRIG SOLN EXT SCH (11:11)
[2020-02-23] MEDS: SODIUM CHLORIDE FLUSH 10ML SYR IVF SCH ×2 (11:12→21:00)
[2020-02-23] MEDS: GABAPENTIN 300 MG CAPSULE PO SCH ×3 (11:14→21:16)
[2020-02-23] MEDS: HYDROmorphone 1 MG/ML, 1ML INJ IVPush PRN (11:34)
[2020-02-23 13:03] VITALS: BP 128/85
[2020-02-23 17:47] LABS: BASOPHILS # (AUTO) 0.05 x10^3/uL (0-0.1); BASOPHILS % (AUTO) 1 % (0-1); EOSINOPHILS # (AUTO) 0.26 x10^3/uL (0-0.4); EOSINOPHILS % (AUTO) 3 % (1-7); LYMPHOCYTES # (AUTO) 1.05 x10^3/uL (1-3.4); LYMPHOCYTES % (AUTO) 10 % (22-44); MD NO; MEAN CORPUSCULAR HEMOGLOBIN 26.4 pg (27.5-34.5); MEAN CORPUSCULAR HGB CONC 31.1 g/dL (33.2-36.2); MEAN CORPUSCULAR VOLUME 84.8 fL (81-97); MEAN PLATELET VOLUME 7.8 fL (7.4-10.4); MONOCYTES # (AUTO) 0.55 x10^3/uL (0.2-0.8); MONOCYTES % (AUTO) 5 % (2-9); NEUTROPHILS # (AUTO) 8.24 x10^3/uL (1.8-6.8); NEUTROPHILS % (AUTO) 81 % (42-75); PLATELET COUNT 298 x10^3/uL (130-400); RED BLOOD COUNT 3.97 x10^6/uL (4.38-5.82)
[2020-02-23 17:54] LABS: ALBUMIN 2.4 g/dL (3.4-5.0); ANION GAP 4 mmol/L (5-15); CALCIUM 9.4 mg/dL (8.5-10.1); CHLORIDE 104 mmol/L (98-107)
[2020-02-23 18:00] LABS: ALANINE AMINOTRANSFERASE 17 U/L (12-78); ALKALINE PHOSPHATASE 121 U/L (45-117); CREATINE KINASE, TOTAL 55 U/L (39-308); CREATININE 1.85 mg/dL (0.7-1.3); TOTAL PROTEIN 7.1 g/dL (6.4-8.2)
[2020-02-23 18:03] LABS: BILIRUBIN,TOTAL < 0.1 mg/dL (0.2-1.0)
[2020-02-23 19:46] VITALS: BP 114/77
[2020-02-23] MEDS: TRAZODONE 100MG TABLET PO SCH (21:17)
[2020-02-24 01:30] VITALS: BP 106/71
[2020-02-24] MEDS: FUROSEMIDE 20 MG TABLET PO SCH ×2 (05:13→18:04)
[2020-02-24] MEDS: HEPARIN 5,000 UNITS/ML, 1ML SQ SCH ×3 (05:13→20:29)
[2020-02-24 05:37] LABS: BASOPHILS # (AUTO) 0.05 x10^3/uL (0-0.1); BASOPHILS % (AUTO) 1 % (0-1); EOSINOPHILS # (AUTO) 0.28 x10^3/uL (0-0.4); EOSINOPHILS % (AUTO) 3 % (1-7); LYMPHOCYTES # (AUTO) 1.28 x10^3/uL (1-3.4); LYMPHOCYTES % (AUTO) 14 % (22-44); MD NO; MEAN CORPUSCULAR HEMOGLOBIN 26.7 pg (27.5-34.5); MEAN CORPUSCULAR HGB CONC 31.8 g/dL (33.2-36.2); MEAN CORPUSCULAR VOLUME 84.1 fL (81-97); MEAN PLATELET VOLUME 7.6 fL (7.4-10.4); MONOCYTES # (AUTO) 0.73 x10^3/uL (0.2-0.8); MONOCYTES % (AUTO) 8 % (2-9); NEUTROPHILS # (AUTO) 6.82 x10^3/uL (1.8-6.8); NEUTROPHILS % (AUTO) 74 % (42-75); PLATELET COUNT 262 x10^3/uL (130-400); RED BLOOD COUNT 3.67 x10^6/uL (4.38-5.82); RED CELL DISTRIBUTION WIDTH 15.9 % (9.4-14.8)
[2020-02-24 05:55] LABS: CHLORIDE 103 mmol/L (98-107)
[2020-02-24 06:06] LABS: ALANINE AMINOTRANSFERASE 14 U/L (12-78); ALBUMIN 2.1 g/dL (3.4-5.0); ALKALINE PHOSPHATASE 113 U/L (45-117); ANION GAP 6 mmol/L (5-15); BILIRUBIN,TOTAL 0.3 mg/dL (0.2-1.0); CALCIUM 9.4 mg/dL (8.5-10.1); CREATININE 1.79 mg/dL (0.7-1.3); TOTAL PROTEIN 6.6 g/dL (6.4-8.2)
[2020-02-24] MEDS: PANTOPRAZOLE 40MG TABLET PO SCH (07:46)
[2020-02-24] MEDS: BUPROPION 100 MG TABLET PO SCH ×2 (07:52→12:38)
[2020-02-24] MEDS: SEVELAMER CARBONATE 800MG TAB PO SCH ×3 (07:52→16:32)
[2020-02-24] MEDS: HYDROmorphone 1 MG/ML, 1ML INJ IV PRN ×3 (07:53→16:57)
[2020-02-24 07:59] VITALS: BP 129/84
[2020-02-24] MEDS: DAKIN'S SOLUTION 1/4 STRENGTH 1,000 ML IRRIG SOLN EXT SCH (09:00)
[2020-02-24] MEDS: LACTULOSE 20 GM/30 ML UDC PO SCH ×2 (09:00→20:29)
[2020-02-24] MEDS: DOCUSATE 100 MG CAPSULE PO SCH ×2 (09:14→20:29)
[2020-02-24] MEDS: LACTOBACILLUS CHEW TABLET PO SCH ×3 (09:14→20:29)
[2020-02-24] MEDS: MAGNESIUM OXIDE 400 MG TABLET PO SCH (09:14)
[2020-02-24] MEDS: SODIUM CHLORIDE FLUSH 10ML SYR IVF SCH ×2 (09:14→20:30)
[2020-02-24] MEDS: DULOXETINE 30 MG CAPSULE.DR PO SCH (09:15)
[2020-02-24] MEDS: GABAPENTIN 300 MG CAPSULE PO SCH ×3 (09:15→20:29)
[2020-02-24] MEDS: OXYcodone IR 5MG TABLET PO PRN ×2 (12:37→18:09)
[2020-02-24 12:41] VITALS: BP 124/87
[2020-02-24] MEDS: FERROUS SULFATE 325 MG TABLET PO SCH (16:32)
[2020-02-24 19:25] VITALS: BP 137/83
[2020-02-24] MEDS: TRAZODONE 100MG TABLET PO SCH (20:29)
[2020-02-25 05:20] VITALS: BP 123/79
[2020-02-25] MEDS: HEPARIN 5,000 UNITS/ML, 1ML SQ SCH ×3 (05:23→21:00)
[2020-02-25] MEDS: FUROSEMIDE 20 MG TABLET PO SCH ×2 (05:23→17:08)
[2020-02-25 05:59] LABS: BASOPHILS # (AUTO) 0.03 x10^3/uL (0-0.1); BASOPHILS % (AUTO) 0 % (0-1); EOSINOPHILS # (AUTO) 0.27 x10^3/uL (0-0.4); EOSINOPHILS % (AUTO) 4 % (1-7); LYMPHOCYTES # (AUTO) 1.31 x10^3/uL (1-3.4); LYMPHOCYTES % (AUTO) 17 % (22-44); MD NO; MEAN CORPUSCULAR HEMOGLOBIN 26.6 pg (27.5-34.5); MEAN CORPUSCULAR HGB CONC 31.4 g/dL (33.2-36.2); MEAN CORPUSCULAR VOLUME 84.8 fL (81-97); MEAN PLATELET VOLUME 7.9 fL (7.4-10.4); MONOCYTES # (AUTO) 0.53 x10^3/uL (0.2-0.8); MONOCYTES % (AUTO) 7 % (2-9); NEUTROPHILS # (AUTO) 5.49 x10^3/uL (1.8-6.8); NEUTROPHILS % (AUTO) 72 % (42-75); PLATELET COUNT 265 x10^3/uL (130-400); RED BLOOD COUNT 3.67 x10^6/uL (4.38-5.82); RED CELL DISTRIBUTION WIDTH 15.7 % (9.4-14.8)
[2020-02-25 06:03] LABS: C-REACTIVE PROTEIN, QUANT 6.3 mg/dL (0.02-0.49)
[2020-02-25 06:51] LABS: HCT (SEDRATE) 31.1 % (39.2-51.8)
[2020-02-25 08:00] VITALS: BP 128/87
[2020-02-25] MEDS: FENTANYL REMOVE PATCH NOTE XX SCH (08:30)
[2020-02-25] MEDS: DOCUSATE 100 MG CAPSULE PO SCH ×2 (08:50→22:01)
[2020-02-25] MEDS: HYDROmorphone 1 MG/ML, 1ML INJ IV PRN ×3 (08:50→18:28)
[2020-02-25] MEDS: LACTOBACILLUS CHEW TABLET PO SCH ×3 (08:51→22:00)
[2020-02-25] MEDS: MAGNESIUM OXIDE 400 MG TABLET PO SCH (08:51)
[2020-02-25] MEDS: SEVELAMER CARBONATE 800MG TAB PO SCH ×3 (08:51→16:17)
[2020-02-25] MEDS: PANTOPRAZOLE 40MG TABLET PO SCH (08:51)
[2020-02-25] MEDS: DULOXETINE 30 MG CAPSULE.DR PO SCH (08:51)
[2020-02-25] MEDS: GABAPENTIN 300 MG CAPSULE PO SCH ×3 (08:51→22:01)
[2020-02-25] MEDS: BUPROPION 100 MG TABLET PO SCH ×2 (08:51→12:16)
[2020-02-25] MEDS: FENTANYL 75 MCG PATCH TD SCH (08:51)
[2020-02-25] MEDS: SODIUM CHLORIDE FLUSH 10ML SYR IVF SCH (09:07)
[2020-02-25] MEDS: DAKIN'S SOLUTION 1/4 STRENGTH 1,000 ML IRRIG SOLN EXT SCH (09:45)
[2020-02-25 13:05] VITALS: BP 128/89
[2020-02-25] MEDS: OXYcodone IR 5MG TABLET PO PRN ×2 (13:30→22:01)
[2020-02-25] MEDS: AMOXICILLIN/CLAV 875-125MG TABLET PO SCH (17:07)
[2020-02-25 18:49] VITALS: BP 138/78
[2020-02-25] MEDS: TRAZODONE 100MG TABLET PO SCH (22:01)
[2020-02-26] MEDS: HYDROmorphone 1 MG/ML, 1ML INJ IVPush PRN ×2 (00:44→11:44)
[2020-02-26] MEDS: SODIUM CHLORIDE FLUSH 10ML SYR IVF SCH ×3 (00:44→21:16)
[2020-02-26 01:58] VITALS: BP 110/75
[2020-02-26] MEDS: OXYcodone IR 5MG TABLET PO PRN ×3 (02:22→21:49)
[2020-02-26] MEDS: FUROSEMIDE 20 MG TABLET PO SCH ×2 (05:36→17:15)
[2020-02-26] MEDS: HEPARIN 5,000 UNITS/ML, 1ML SQ SCH ×3 (05:36→21:16)
[2020-02-26] MEDS: AMOXICILLIN/CLAV 875-125MG TABLET PO SCH ×3 (05:36→21:15)
[2020-02-26 08:39] VITALS: BP 112/79
[2020-02-26] MEDS: HYDROmorphone 1 MG/ML, 1ML INJ IV PRN ×3 (08:41→16:06)
[2020-02-26] MEDS: LACTOBACILLUS CHEW TABLET PO SCH ×3 (08:47→21:15)
[2020-02-26] MEDS: SEVELAMER CARBONATE 800MG TAB PO SCH ×3 (08:47→17:15)
[2020-02-26] MEDS: DULOXETINE 30 MG CAPSULE.DR PO SCH (08:48)
[2020-02-26] MEDS: BUPROPION 100 MG TABLET PO SCH ×2 (08:48→13:05)
[2020-02-26] MEDS: LACTULOSE 20 GM/30 ML UDC PO SCH (08:48)
[2020-02-26] MEDS: MAGNESIUM OXIDE 400 MG TABLET PO SCH (08:48)
[2020-02-26] MEDS: PANTOPRAZOLE 40MG TABLET PO SCH (08:48)
[2020-02-26] MEDS: GABAPENTIN 300 MG CAPSULE PO SCH ×3 (08:48→21:16)
[2020-02-26] MEDS: DOCUSATE 100 MG CAPSULE PO SCH ×2 (08:48→21:15)
[2020-02-26] MEDS: DAKIN'S SOLUTION 1/4 STRENGTH 1,000 ML IRRIG SOLN EXT SCH (09:00)
[2020-02-26 14:59] VITALS: BP 121/85
[2020-02-26] MEDS: FERROUS SULFATE 325 MG TABLET PO SCH (17:15)
[2020-02-26] MEDS: TRAZODONE 100MG TABLET PO SCH (21:15)
[2020-02-26 21:31] VITALS: BP 123/75
[2020-02-27 03:29] VITALS: BP 111/72
[2020-02-27] MEDS: HEPARIN 5,000 UNITS/ML, 1ML SQ SCH ×3 (05:51→21:27)
[2020-02-27] MEDS: FUROSEMIDE 20 MG TABLET PO SCH ×2 (05:51→16:48)
[2020-02-27 07:35] VITALS: BP 101/68
[2020-02-27] MEDS: MAGNESIUM OXIDE 400 MG TABLET PO SCH (08:45)
[2020-02-27] MEDS: GABAPENTIN 300 MG CAPSULE PO SCH ×3 (08:45→21:28)
[2020-02-27] MEDS: SEVELAMER CARBONATE 800MG TAB PO SCH ×3 (08:45→16:48)
[2020-02-27] MEDS: HYDROmorphone 1 MG/ML, 1ML INJ IV PRN ×3 (08:46→17:36)
[2020-02-27] MEDS: LACTOBACILLUS CHEW TABLET PO SCH ×3 (08:46→21:27)
[2020-02-27] MEDS: BUPROPION 100 MG TABLET PO SCH ×2 (08:46→12:23)
[2020-02-27] MEDS: DOCUSATE 100 MG CAPSULE PO SCH ×2 (08:46→21:28)
[2020-02-27] MEDS: LACTULOSE 20 GM/30 ML UDC PO SCH (08:46)
[2020-02-27] MEDS: PANTOPRAZOLE 40MG TABLET PO SCH (08:46)
[2020-02-27] MEDS: DULOXETINE 30 MG CAPSULE.DR PO SCH (08:46)
[2020-02-27] MEDS: AMOXICILLIN/CLAV 875-125MG TABLET PO SCH ×2 (08:46→21:27)
[2020-02-27] MEDS: DAKIN'S SOLUTION 1/4 STRENGTH 1,000 ML IRRIG SOLN EXT SCH (08:47)
[2020-02-27] MEDS: SODIUM CHLORIDE FLUSH 10ML SYR IVF SCH ×2 (08:47→21:29)
[2020-02-27] MEDS: DARBEPOETIN 200 MCG/ML SQ SCH (12:22)
[2020-02-27] MEDS: OXYcodone IR 5MG TABLET PO PRN ×3 (12:22→21:28)
[2020-02-27 12:51] VITALS: BP 134/85
[2020-02-27 16:42] VITALS: BP 119/80
[2020-02-27 20:00] VITALS: BP 120/79
[2020-02-27] MEDS: TRAZODONE 100MG TABLET PO SCH (21:28)
[2020-02-27 22:16] VITALS: BP 120/79
[2020-02-28 02:30] VITALS: BP 102/73
[2020-02-28] MEDS: HEPARIN 5,000 UNITS/ML, 1ML SQ SCH ×3 (05:00→20:54)
[2020-02-28] MEDS: FUROSEMIDE 20 MG TABLET PO SCH ×2 (05:21→18:01)
[2020-02-28] MEDS: OXYcodone IR 5MG TABLET PO PRN ×3 (05:22→18:00)
[2020-02-28] MEDS: MAGNESIUM OXIDE 400 MG TABLET PO SCH (09:21)
[2020-02-28] MEDS: SEVELAMER CARBONATE 800MG TAB PO SCH ×3 (09:21→18:00)
[2020-02-28] MEDS: DOCUSATE 100 MG CAPSULE PO SCH ×2 (09:22→20:53)
[2020-02-28] MEDS: DULOXETINE 30 MG CAPSULE.DR PO SCH (09:22)
[2020-02-28] MEDS: PANTOPRAZOLE 40MG TABLET PO SCH (09:22)
[2020-02-28] MEDS: LACTULOSE 20 GM/30 ML UDC PO SCH (09:22)
[2020-02-28] MEDS: HYDROmorphone 1 MG/ML, 1ML INJ IV PRN ×3 (09:22→18:01)
[2020-02-28] MEDS: BUPROPION 100 MG TABLET PO SCH ×2 (09:22→12:23)
[2020-02-28] MEDS: GABAPENTIN 300 MG CAPSULE PO SCH ×3 (09:22→20:53)
[2020-02-28] MEDS: LACTOBACILLUS CHEW TABLET PO SCH ×3 (09:22→20:53)
[2020-02-28] MEDS: AMOXICILLIN/CLAV 875-125MG TABLET PO SCH ×2 (09:22→20:53)
[2020-02-28] MEDS: SODIUM CHLORIDE FLUSH 10ML SYR IVF SCH ×2 (09:23→20:54)
[2020-02-28] MEDS: FENTANYL REMOVE PATCH NOTE XX SCH (09:23)
[2020-02-28] MEDS: DAKIN'S SOLUTION 1/4 STRENGTH 1,000 ML IRRIG SOLN EXT SCH (09:23)
[2020-02-28] MEDS: FENTANYL 75 MCG PATCH TD SCH (09:23)
[2020-02-28 09:44] VITALS: BP 122/87
[2020-02-28] MEDS: HYDROmorphone 1 MG/ML, 1ML INJ IVPush PRN (11:11)
[2020-02-28 12:20] VITALS: BP 119/72
[2020-02-28] MEDS: FERROUS SULFATE 325 MG TABLET PO SCH (15:08)
[2020-02-28 18:56] VITALS: BP 119/79
[2020-02-28] MEDS: TRAZODONE 100MG TABLET PO SCH (20:53)
[2020-02-29 03:28] VITALS: BP 112/69
[2020-02-29] MEDS: FUROSEMIDE 20 MG TABLET PO SCH ×2 (05:31→17:16)
[2020-02-29] MEDS: HEPARIN 5,000 UNITS/ML, 1ML SQ SCH ×3 (05:31→21:17)
[2020-02-29 08:30] VITALS: BP 110/55
[2020-02-29] MEDS: PANTOPRAZOLE 40MG TABLET PO SCH (08:42)
[2020-02-29] MEDS: SEVELAMER CARBONATE 800MG TAB PO SCH ×3 (08:42→17:16)
[2020-02-29] MEDS: LACTOBACILLUS CHEW TABLET PO SCH ×3 (08:43→21:16)
[2020-02-29] MEDS: DAKIN'S SOLUTION 1/4 STRENGTH 1,000 ML IRRIG SOLN EXT SCH (08:43)
[2020-02-29] MEDS: DULOXETINE 30 MG CAPSULE.DR PO SCH (08:43)
[2020-02-29] MEDS: DOCUSATE 100 MG CAPSULE PO SCH ×2 (08:43→21:17)
[2020-02-29] MEDS: BUPROPION 100 MG TABLET PO SCH ×2 (08:43→12:04)
[2020-02-29] MEDS: LACTULOSE 20 GM/30 ML UDC PO SCH (08:43)
[2020-02-29] MEDS: SODIUM CHLORIDE FLUSH 10ML SYR IVF SCH ×2 (08:43→21:15)
[2020-02-29] MEDS: AMOXICILLIN/CLAV 875-125MG TABLET PO SCH ×2 (08:43→21:16)
[2020-02-29] MEDS: GABAPENTIN 300 MG CAPSULE PO SCH ×3 (08:44→21:16)
[2020-02-29] MEDS: MAGNESIUM OXIDE 400 MG TABLET PO SCH (08:44)
[2020-02-29] MEDS: HYDROmorphone 1 MG/ML, 1ML INJ IV PRN ×3 (08:45→18:15)
[2020-02-29] MEDS: OXYcodone IR 5MG TABLET PO PRN ×3 (09:41→21:51)
[2020-02-29 12:18] VITALS: BP 135/81
[2020-02-29] MEDS: TRAZODONE 100MG TABLET PO SCH (21:16)
[2020-02-29 21:36] VITALS: BP 125/72
[2020-03-01] MEDS: OXYcodone IR 5MG TABLET PO PRN ×3 (02:24→21:45)
[2020-03-01 02:38] VITALS: BP 124/83
[2020-03-01] MEDS: FUROSEMIDE 20 MG TABLET PO SCH ×2 (05:28→18:15)
[2020-03-01] MEDS: HEPARIN 5,000 UNITS/ML, 1ML SQ SCH ×3 (05:28→21:45)
[2020-03-01 08:00] VITALS: BP 110/71
[2020-03-01] MEDS: DAKIN'S SOLUTION 1/4 STRENGTH 1,000 ML IRRIG SOLN EXT SCH (09:00)
[2020-03-01] MEDS: LACTULOSE 20 GM/30 ML UDC PO SCH (09:45)
[2020-03-01] MEDS: AMOXICILLIN/CLAV 875-125MG TABLET PO SCH ×2 (09:46→21:45)
[2020-03-01] MEDS: DOCUSATE 100 MG CAPSULE PO SCH ×2 (09:46→21:45)
[2020-03-01] MEDS: BUPROPION 100 MG TABLET PO SCH ×2 (09:46→11:06)
[2020-03-01] MEDS: GABAPENTIN 300 MG CAPSULE PO SCH ×3 (09:46→21:45)
[2020-03-01] MEDS: SEVELAMER CARBONATE 800MG TAB PO SCH ×3 (09:46→17:00)
[2020-03-01] MEDS: MAGNESIUM OXIDE 400 MG TABLET PO SCH (09:47)
[2020-03-01] MEDS: LACTOBACILLUS CHEW TABLET PO SCH ×3 (09:47→21:45)
[2020-03-01] MEDS: DULOXETINE 30 MG CAPSULE.DR PO SCH (09:47)
[2020-03-01] MEDS: PANTOPRAZOLE 40MG TABLET PO SCH (09:47)
[2020-03-01] MEDS: SODIUM CHLORIDE FLUSH 10ML SYR IVF SCH ×2 (09:49→21:45)
[2020-03-01] MEDS: HYDROmorphone 1 MG/ML, 1ML INJ IV PRN ×3 (09:55→17:00)
[2020-03-01] MEDS: HYDROmorphone 1 MG/ML, 1ML INJ IVPush PRN (11:07)
[2020-03-01 14:00] VITALS: BP 125/82
[2020-03-01] MEDS: FERROUS SULFATE 325 MG TABLET PO SCH (17:00)
[2020-03-01 18:36] VITALS: BP 132/82
[2020-03-01] MEDS: TRAZODONE 100MG TABLET PO SCH (21:45)
[2020-03-02 00:25] VITALS: BP 114/71
[2020-03-02] MEDS: OXYcodone IR 5MG TABLET PO PRN ×4 (01:34→22:10)
[2020-03-02] MEDS: FUROSEMIDE 20 MG TABLET PO SCH ×2 (05:51→17:32)
[2020-03-02] MEDS: HEPARIN 5,000 UNITS/ML, 1ML SQ SCH ×3 (05:51→22:12)
[2020-03-02 07:55] VITALS: BP 121/80
[2020-03-02] MEDS: LACTOBACILLUS CHEW TABLET PO SCH ×3 (07:56→22:10)
[2020-03-02] MEDS: PANTOPRAZOLE 40MG TABLET PO SCH (07:56)
[2020-03-02] MEDS: HYDROmorphone 1 MG/ML, 1ML INJ IV PRN ×3 (07:56→16:38)
[2020-03-02] MEDS: MAGNESIUM OXIDE 400 MG TABLET PO SCH (07:56)
[2020-03-02] MEDS: SEVELAMER CARBONATE 800MG TAB PO SCH ×3 (07:56→16:38)
[2020-03-02] MEDS: GABAPENTIN 300 MG CAPSULE PO SCH ×3 (07:56→22:10)
[2020-03-02] MEDS: SODIUM CHLORIDE FLUSH 10ML SYR IVF SCH ×2 (07:57→22:11)
[2020-03-02] MEDS: DULOXETINE 30 MG CAPSULE.DR PO SCH (07:57)
[2020-03-02] MEDS: DOCUSATE 100 MG CAPSULE PO SCH ×2 (07:57→22:10)
[2020-03-02] MEDS: AMOXICILLIN/CLAV 875-125MG TABLET PO SCH ×2 (07:57→22:10)
[2020-03-02] MEDS: BUPROPION 100 MG TABLET PO SCH ×2 (07:57→11:41)
[2020-03-02] MEDS: LACTULOSE 20 GM/30 ML UDC PO SCH (07:58)
[2020-03-02] MEDS: FENTANYL REMOVE PATCH NOTE XX SCH (07:58)
[2020-03-02] MEDS: DAKIN'S SOLUTION 1/4 STRENGTH 1,000 ML IRRIG SOLN EXT SCH (07:58)
[2020-03-02] MEDS: FENTANYL 75 MCG PATCH TD SCH (10:15)
[2020-03-02 13:13] VITALS: BP 125/76
[2020-03-02 18:00] VITALS: BP 121/75
[2020-03-02] MEDS: TRAZODONE 100MG TABLET PO SCH (22:10)
[2020-03-02 22:18] VITALS: BP 122/79
[2020-03-03] MEDS: OXYcodone IR 5MG TABLET PO PRN ×5 (02:03→22:55)
[2020-03-03 03:44] VITALS: BP 118/78
[2020-03-03] MEDS: HEPARIN 5,000 UNITS/ML, 1ML SQ SCH ×3 (05:35→21:10)
[2020-03-03] MEDS: FUROSEMIDE 20 MG TABLET PO SCH ×2 (05:35→17:30)
[2020-03-03] MEDS: DAKIN'S SOLUTION 1/4 STRENGTH 1,000 ML IRRIG SOLN EXT SCH (07:17)
[2020-03-03] MEDS: LACTULOSE 20 GM/30 ML UDC PO SCH (08:11)
[2020-03-03] MEDS: DOCUSATE 100 MG CAPSULE PO SCH ×2 (08:11→21:10)
[2020-03-03] MEDS: AMOXICILLIN/CLAV 875-125MG TABLET PO SCH ×2 (08:11→21:09)
[2020-03-03] MEDS: DULOXETINE 30 MG CAPSULE.DR PO SCH (08:11)
[2020-03-03] MEDS: PANTOPRAZOLE 40MG TABLET PO SCH (08:11)
[2020-03-03] MEDS: LACTOBACILLUS CHEW TABLET PO SCH ×3 (08:11→21:09)
[2020-03-03] MEDS: BUPROPION 100 MG TABLET PO SCH ×2 (08:11→12:16)
[2020-03-03] MEDS: MAGNESIUM OXIDE 400 MG TABLET PO SCH (08:11)
[2020-03-03] MEDS: GABAPENTIN 300 MG CAPSULE PO SCH ×3 (08:11→21:09)
[2020-03-03] MEDS: SEVELAMER CARBONATE 800MG TAB PO SCH ×3 (08:11→16:14)
[2020-03-03] MEDS: HYDROmorphone 1 MG/ML, 1ML INJ IV PRN ×4 (08:12→16:14)
[2020-03-03] MEDS: SODIUM CHLORIDE FLUSH 10ML SYR IVF SCH ×2 (08:13→21:08)
[2020-03-03 08:14] VITALS: BP 95/58
[2020-03-03 12:20] VITALS: BP 133/87
[2020-03-03] MEDS: FERROUS SULFATE 325 MG TABLET PO SCH (16:14)
[2020-03-03 21:06] VITALS: BP 124/51
[2020-03-03] MEDS: TRAZODONE 100MG TABLET PO SCH (21:10)
[2020-03-04 03:45] VITALS: BP 98/60
[2020-03-04] MEDS: OXYcodone IR 5MG TABLET PO PRN ×3 (04:22→20:59)
[2020-03-04] MEDS: HEPARIN 5,000 UNITS/ML, 1ML SQ SCH ×3 (05:18→21:00)
[2020-03-04 05:19] VITALS: BP 110/68
[2020-03-04] MEDS: FUROSEMIDE 20 MG TABLET PO SCH ×2 (05:20→18:38)
[2020-03-04] MEDS: PANTOPRAZOLE 40MG TABLET PO SCH (07:48)
[2020-03-04] MEDS: LACTOBACILLUS CHEW TABLET PO SCH ×3 (08:10→20:59)
[2020-03-04] MEDS: MAGNESIUM OXIDE 400 MG TABLET PO SCH (08:10)
[2020-03-04] MEDS: DOCUSATE 100 MG CAPSULE PO SCH ×2 (08:11→20:59)
[2020-03-04] MEDS: DULOXETINE 30 MG CAPSULE.DR PO SCH (08:11)
[2020-03-04] MEDS: SEVELAMER CARBONATE 800MG TAB PO SCH ×3 (08:11→16:55)
[2020-03-04] MEDS: GABAPENTIN 300 MG CAPSULE PO SCH ×3 (08:11→20:59)
[2020-03-04] MEDS: BUPROPION 100 MG TABLET PO SCH ×2 (08:11→12:17)
[2020-03-04] MEDS: LACTULOSE 20 GM/30 ML UDC PO SCH (08:12)
[2020-03-04] MEDS: SODIUM CHLORIDE FLUSH 10ML SYR IVF SCH ×2 (08:12→20:58)
[2020-03-04] MEDS: DAKIN'S SOLUTION 1/4 STRENGTH 1,000 ML IRRIG SOLN EXT SCH (08:13)
[2020-03-04] MEDS: AMOXICILLIN/CLAV 875-125MG TABLET PO SCH ×2 (08:15→20:58)
[2020-03-04 08:37] VITALS: BP 121/76
[2020-03-04] MEDS: HYDROmorphone 1 MG/ML, 1ML INJ IVPush PRN (11:04)
[2020-03-04] MEDS: HYDROmorphone 1 MG/ML, 1ML INJ IV PRN ×2 (12:18→16:56)
[2020-03-04 15:11] VITALS: BP 121/77
[2020-03-04 18:37] VITALS: BP 131/68
[2020-03-04] MEDS: TRAZODONE 100MG TABLET PO SCH (20:59)
[2020-03-05 05:12] VITALS: BP 114/71
[2020-03-05] MEDS: FUROSEMIDE 20 MG TABLET PO SCH ×2 (05:32→16:56)
[2020-03-05] MEDS: HEPARIN 5,000 UNITS/ML, 1ML SQ SCH ×3 (05:32→20:57)
[2020-03-05 08:31] VITALS: BP 108/67
[2020-03-05] MEDS: AMOXICILLIN/CLAV 875-125MG TABLET PO SCH ×2 (09:46→20:56)
[2020-03-05] MEDS: SEVELAMER CARBONATE 800MG TAB PO SCH ×3 (09:46→16:57)
[2020-03-05] MEDS: LACTOBACILLUS CHEW TABLET PO SCH ×3 (09:46→20:56)
[2020-03-05] MEDS: GABAPENTIN 300 MG CAPSULE PO SCH ×3 (09:46→20:57)
[2020-03-05] MEDS: DOCUSATE 100 MG CAPSULE PO SCH ×2 (09:46→20:56)
[2020-03-05] MEDS: DULOXETINE 30 MG CAPSULE.DR PO SCH (09:47)
[2020-03-05] MEDS: BUPROPION 100 MG TABLET PO SCH ×2 (09:47→12:52)
[2020-03-05] MEDS: MAGNESIUM OXIDE 400 MG TABLET PO SCH (09:47)
[2020-03-05] MEDS: PANTOPRAZOLE 40MG TABLET PO SCH (09:47)
[2020-03-05] MEDS: LACTULOSE 20 GM/30 ML UDC PO SCH (09:49)
[2020-03-05] MEDS: HYDROmorphone 1 MG/ML, 1ML INJ IV PRN ×3 (09:58→17:32)
[2020-03-05] MEDS: FENTANYL 75 MCG PATCH TD SCH (09:58)
[2020-03-05] MEDS: SODIUM CHLORIDE FLUSH 10ML SYR IVF SCH ×2 (10:05→20:55)
[2020-03-05] MEDS: FENTANYL REMOVE PATCH NOTE XX SCH (10:05)
[2020-03-05] MEDS: DAKIN'S SOLUTION 1/4 STRENGTH 1,000 ML IRRIG SOLN EXT SCH (11:58)
[2020-03-05] MEDS: DARBEPOETIN 200 MCG/ML SQ SCH (12:52)
[2020-03-05] MEDS: OXYcodone IR 5MG TABLET PO PRN ×2 (12:53→20:58)
[2020-03-05 14:40] VITALS: BP 133/56
[2020-03-05] MEDS: FERROUS SULFATE 325 MG TABLET PO SCH (16:57)
[2020-03-05] MEDS: TRAZODONE 100MG TABLET PO SCH (20:56)
[2020-03-05 21:02] VITALS: BP 118/77
[2020-03-06] MEDS: OXYcodone IR 5MG TABLET PO PRN ×3 (01:59→21:31)
[2020-03-06 02:00] VITALS: BP 121/75
[2020-03-06] MEDS: FUROSEMIDE 20 MG TABLET PO SCH ×3 (05:36→17:02)
[2020-03-06] MEDS: HEPARIN 5,000 UNITS/ML, 1ML SQ SCH ×3 (05:36→21:32)
[2020-03-06 07:35] VITALS: BP 108/54
[2020-03-06] MEDS: SEVELAMER CARBONATE 800MG TAB PO SCH ×3 (08:35→16:50)
[2020-03-06] MEDS: BUPROPION 100 MG TABLET PO SCH ×2 (08:35→13:10)
[2020-03-06] MEDS: DAKIN'S SOLUTION 1/4 STRENGTH 1,000 ML IRRIG SOLN EXT SCH (08:35)
[2020-03-06] MEDS: PANTOPRAZOLE 40MG TABLET PO SCH (08:35)
[2020-03-06] MEDS: LACTULOSE 20 GM/30 ML UDC PO SCH (08:36)
[2020-03-06] MEDS: GABAPENTIN 300 MG CAPSULE PO SCH ×3 (08:36→21:31)
[2020-03-06] MEDS: DULOXETINE 30 MG CAPSULE.DR PO SCH (08:36)
[2020-03-06] MEDS: SODIUM CHLORIDE FLUSH 10ML SYR IVF SCH ×2 (08:36→21:31)
[2020-03-06] MEDS: MAGNESIUM OXIDE 400 MG TABLET PO SCH (08:36)
[2020-03-06] MEDS: AMOXICILLIN/CLAV 875-125MG TABLET PO SCH ×2 (08:36→21:31)
[2020-03-06] MEDS: LACTOBACILLUS CHEW TABLET PO SCH ×3 (08:36→21:31)
[2020-03-06] MEDS: DOCUSATE 100 MG CAPSULE PO SCH ×2 (08:36→21:30)
[2020-03-06] MEDS: HYDROmorphone 1 MG/ML, 1ML INJ IV PRN ×3 (08:37→16:51)
[2020-03-06] MEDS: HYDROmorphone 1 MG/ML, 1ML INJ IVPush PRN (11:05)
[2020-03-06 14:45] VITALS: BP 114/68
[2020-03-06] MEDS: TRAZODONE 100MG TABLET PO SCH (21:31)
[2020-03-06 21:45] VITALS: BP 120/74
[2020-03-07 04:56] VITALS: BP 107/68
[2020-03-07] MEDS: HEPARIN 5,000 UNITS/ML, 1ML SQ SCH ×3 (04:58→20:40)
[2020-03-07] MEDS: FUROSEMIDE 20 MG TABLET PO SCH ×2 (04:59→17:00)
[2020-03-07] MEDS: SEVELAMER CARBONATE 800MG TAB PO SCH ×3 (07:34→17:00)
[2020-03-07] MEDS: LACTULOSE 20 GM/30 ML UDC PO SCH (07:34)
[2020-03-07] MEDS: DULOXETINE 30 MG CAPSULE.DR PO SCH (07:34)
[2020-03-07] MEDS: LACTOBACILLUS CHEW TABLET PO SCH ×3 (07:34→20:40)
[2020-03-07] MEDS: GABAPENTIN 300 MG CAPSULE PO SCH ×3 (07:34→20:39)
[2020-03-07] MEDS: MAGNESIUM OXIDE 400 MG TABLET PO SCH (07:34)
[2020-03-07] MEDS: PANTOPRAZOLE 40MG TABLET PO SCH (07:35)
[2020-03-07] MEDS: HYDROmorphone 1 MG/ML, 1ML INJ IV PRN ×3 (07:35→16:11)
[2020-03-07] MEDS: DOCUSATE 100 MG CAPSULE PO SCH ×2 (07:35→20:40)
[2020-03-07] MEDS: AMOXICILLIN/CLAV 875-125MG TABLET PO SCH ×2 (07:35→20:39)
[2020-03-07] MEDS: BUPROPION 100 MG TABLET PO SCH ×2 (07:35→11:55)
[2020-03-07] MEDS: SODIUM CHLORIDE FLUSH 10ML SYR IVF SCH (07:39)
[2020-03-07 08:16] VITALS: BP 121/75
[2020-03-07] MEDS: DAKIN'S SOLUTION 1/4 STRENGTH 1,000 ML IRRIG SOLN EXT SCH (09:00)
[2020-03-07] MEDS: OXYcodone IR 5MG TABLET PO PRN ×2 (14:01→20:41)
[2020-03-07] MEDS: FERROUS SULFATE 325 MG TABLET PO SCH (16:09)
[2020-03-07 16:30] VITALS: BP 122/82
[2020-03-07 18:36] VITALS: BP 136/93
[2020-03-07] MEDS: TRAZODONE 100MG TABLET PO SCH (20:40)
[2020-03-08] MEDS: SODIUM CHLORIDE FLUSH 10ML SYR IVF SCH ×3 (00:37→21:37)
[2020-03-08] MEDS: OXYcodone IR 5MG TABLET PO PRN ×4 (00:37→21:38)
[2020-03-08 02:05] VITALS: BP 119/77
[2020-03-08] MEDS: HEPARIN 5,000 UNITS/ML, 1ML SQ SCH ×3 (05:03→21:37)
[2020-03-08] MEDS: FUROSEMIDE 20 MG TABLET PO SCH ×3 (05:04→16:55)
[2020-03-08] MEDS: FENTANYL REMOVE PATCH NOTE XX SCH (08:30)
[2020-03-08] MEDS: DAKIN'S SOLUTION 1/4 STRENGTH 1,000 ML IRRIG SOLN EXT SCH (09:00)
[2020-03-08] MEDS: LACTULOSE 20 GM/30 ML UDC PO SCH (09:00)
[2020-03-08] MEDS: DULOXETINE 30 MG CAPSULE.DR PO SCH (09:01)
[2020-03-08] MEDS: MAGNESIUM OXIDE 400 MG TABLET PO SCH (09:01)
[2020-03-08] MEDS: SEVELAMER CARBONATE 800MG TAB PO SCH ×3 (09:01→16:55)
[2020-03-08] MEDS: GABAPENTIN 300 MG CAPSULE PO SCH ×3 (09:01→21:38)
[2020-03-08] MEDS: PANTOPRAZOLE 40MG TABLET PO SCH (09:01)
[2020-03-08] MEDS: DOCUSATE 100 MG CAPSULE PO SCH ×2 (09:01→21:37)
[2020-03-08] MEDS: LACTOBACILLUS CHEW TABLET PO SCH ×3 (09:01→21:37)
[2020-03-08] MEDS: BUPROPION 100 MG TABLET PO SCH ×2 (09:01→14:17)
[2020-03-08] MEDS: HYDROmorphone 1 MG/ML, 1ML INJ IV PRN ×2 (09:02→16:55)
[2020-03-08] MEDS: AMOXICILLIN/CLAV 875-125MG TABLET PO SCH (09:02)
[2020-03-08] MEDS: FENTANYL 75 MCG PATCH TD SCH (09:02)
[2020-03-08] MEDS: PHENAZOPYRIDINE 200 MG TABLET PO PRN (10:11)
[2020-03-08] MEDS: HYDROmorphone 1 MG/ML, 1ML INJ IVPush PRN (11:00)
[2020-03-08 11:08] LABS: MICROSCOPIC INDICATED
[2020-03-08 12:05] VITALS: BP 113/68
[2020-03-08] MEDS ORDERED: LIDOCAINE 1%, 20ML ONE (13:09)
[2020-03-08] MEDS: CEFTRIAXONE PMX 2GM/50ML 50 ML IV SCH (14:18)
[2020-03-08 18:34] VITALS: BP 121/82
[2020-03-08] MEDS: TRAZODONE 100MG TABLET PO SCH (21:38)
[2020-03-09 00:15] VITALS: BP 131/89
[2020-03-09] MEDS: OXYcodone IR 5MG TABLET PO PRN ×4 (01:11→21:55)
[2020-03-09] MEDS: FUROSEMIDE 20 MG TABLET PO SCH ×2 (06:00→16:58)
[2020-03-09] MEDS: HEPARIN 5,000 UNITS/ML, 1ML SQ SCH ×3 (06:12→21:55)
[2020-03-09] MEDS: DULOXETINE 30 MG CAPSULE.DR PO SCH (08:24)
[2020-03-09] MEDS: HYDROmorphone 1 MG/ML, 1ML INJ IV PRN ×3 (08:24→17:01)
[2020-03-09] MEDS: SEVELAMER CARBONATE 800MG TAB PO SCH ×3 (08:25→16:57)
[2020-03-09] MEDS: DOCUSATE 100 MG CAPSULE PO SCH ×2 (08:25→21:55)
[2020-03-09] MEDS: LACTULOSE 20 GM/30 ML UDC PO SCH (08:25)
[2020-03-09] MEDS: MAGNESIUM OXIDE 400 MG TABLET PO SCH (08:25)
[2020-03-09] MEDS: LACTOBACILLUS CHEW TABLET PO SCH ×3 (08:25→21:55)
[2020-03-09] MEDS: GABAPENTIN 300 MG CAPSULE PO SCH ×3 (08:25→21:55)
[2020-03-09] MEDS: PANTOPRAZOLE 40MG TABLET PO SCH (08:25)
[2020-03-09] MEDS: BUPROPION 100 MG TABLET PO SCH ×2 (08:25→13:01)
[2020-03-09] MEDS: DAKIN'S SOLUTION 1/4 STRENGTH 1,000 ML IRRIG SOLN EXT SCH (09:00)
[2020-03-09] MEDS: SODIUM CHLORIDE FLUSH 10ML SYR IVF SCH ×2 (09:00→21:54)
[2020-03-09] MEDS: CEFTRIAXONE PMX 2GM/50ML 50 ML IV SCH (14:51)
[2020-03-09 15:00] VITALS: BP 110/72
[2020-03-09] MEDS: FERROUS SULFATE 325 MG TABLET PO SCH (16:57)
[2020-03-09 21:52] VITALS: BP 113/66
[2020-03-09] MEDS: TRAZODONE 100MG TABLET PO SCH (21:55)
[2020-03-10 02:40] VITALS: BP 95/58
[2020-03-10] MEDS: FUROSEMIDE 20 MG TABLET PO SCH ×2 (06:01→16:18)
[2020-03-10] MEDS: HEPARIN 5,000 UNITS/ML, 1ML SQ SCH ×3 (06:02→22:10)
[2020-03-10 08:00] VITALS: BP 120/86
[2020-03-10] MEDS: LACTULOSE 20 GM/30 ML UDC PO SCH (09:00)
[2020-03-10] MEDS: DAKIN'S SOLUTION 1/4 STRENGTH 1,000 ML IRRIG SOLN EXT SCH (09:00)
[2020-03-10] MEDS: MAGNESIUM OXIDE 400 MG TABLET PO SCH (09:09)
[2020-03-10] MEDS: BUPROPION 100 MG TABLET PO SCH ×2 (09:09→12:18)
[2020-03-10] MEDS: GABAPENTIN 300 MG CAPSULE PO SCH ×3 (09:09→21:11)
[2020-03-10] MEDS: DULOXETINE 30 MG CAPSULE.DR PO SCH (09:09)
[2020-03-10] MEDS: DOCUSATE 100 MG CAPSULE PO SCH ×2 (09:09→21:11)
[2020-03-10] MEDS: LACTOBACILLUS CHEW TABLET PO SCH ×3 (09:09→21:11)
[2020-03-10] MEDS: PANTOPRAZOLE 40MG TABLET PO SCH (09:09)
[2020-03-10] MEDS: SEVELAMER CARBONATE 800MG TAB PO SCH ×3 (09:09→16:18)
[2020-03-10] MEDS: SODIUM CHLORIDE FLUSH 10ML SYR IVF SCH ×2 (09:10→21:11)
[2020-03-10] MEDS: HYDROmorphone 1 MG/ML, 1ML INJ IV PRN ×3 (09:10→16:32)
[2020-03-10] MEDS: OXYcodone IR 5MG TABLET PO PRN ×2 (13:04→21:12)
[2020-03-10 13:27] VITALS: BP 134/81
[2020-03-10] MEDS: CEFTRIAXONE PMX 2GM/50ML 50 ML IV SCH (15:18)
[2020-03-10 20:05] VITALS: BP 125/80
[2020-03-10] MEDS: TRAZODONE 100MG TABLET PO SCH (21:11)
[2020-03-11] MEDS: OXYcodone IR 5MG TABLET PO PRN ×3 (01:10→19:54)
[2020-03-11] MEDS: ACETAMINOPHEN 325 MG TABLET PO PRN (01:10)
[2020-03-11] MEDS: HYDROmorphone 1 MG/ML, 1ML INJ IV PRN ×2 (01:40→17:31)
[2020-03-11 04:47] VITALS: BP 103/68
[2020-03-11] MEDS: HEPARIN 5,000 UNITS/ML, 1ML SQ SCH ×3 (06:07→20:45)
[2020-03-11] MEDS: FUROSEMIDE 20 MG TABLET PO SCH ×2 (06:08→16:12)
[2020-03-11] MEDS: SEVELAMER CARBONATE 800MG TAB PO SCH ×3 (07:18→16:12)
[2020-03-11] MEDS: BUPROPION 100 MG TABLET PO SCH ×2 (07:47→12:28)
[2020-03-11] MEDS: DOCUSATE 100 MG CAPSULE PO SCH ×2 (07:47→19:54)
[2020-03-11] MEDS: DULOXETINE 30 MG CAPSULE.DR PO SCH (07:47)
[2020-03-11] MEDS: MAGNESIUM OXIDE 400 MG TABLET PO SCH (07:47)
[2020-03-11] MEDS: GABAPENTIN 300 MG CAPSULE PO SCH ×3 (07:47→19:54)
[2020-03-11] MEDS: PANTOPRAZOLE 40MG TABLET PO SCH (07:47)
[2020-03-11] MEDS: LACTOBACILLUS CHEW TABLET PO SCH ×3 (07:47→19:54)
[2020-03-11] MEDS: SODIUM CHLORIDE FLUSH 10ML SYR IVF SCH ×2 (07:48→19:53)
[2020-03-11] MEDS: DAKIN'S SOLUTION 1/4 STRENGTH 1,000 ML IRRIG SOLN EXT SCH (07:48)
[2020-03-11] MEDS: FENTANYL REMOVE PATCH NOTE XX SCH (07:48)
[2020-03-11] MEDS: LACTULOSE 20 GM/30 ML UDC PO SCH (07:48)
[2020-03-11 08:01] LABS: ALANINE AMINOTRANSFERASE 14 U/L (12-78); ALBUMIN 2.5 g/dL (3.4-5.0); ANION GAP 7 mmol/L (5-15); CALCIUM 10.1 mg/dL (8.5-10.1); CHLORIDE 104 mmol/L (98-107)
[2020-03-11 08:03] LABS: ALKALINE PHOSPHATASE 122 U/L (45-117); BILIRUBIN,TOTAL 0.3 mg/dL (0.2-1.0); CREATININE 1.82 mg/dL (0.7-1.3); TOTAL PROTEIN 7.4 g/dL (6.4-8.2)
[2020-03-11] MEDS: FENTANYL 75 MCG PATCH TD SCH (08:15)
[2020-03-11] MEDS ORDERED: SUCCINYLCHOLINE 20 MG/ML, 10ML ONE (10:00)
[2020-03-11] MEDS ORDERED: ONDANSETRON 2MG/ML, 2ML ONE (10:00)
[2020-03-11] MEDS ORDERED: SUGAMMADEX 200 MG/2 ML IVPush ONE (10:00)
[2020-03-11] MEDS ORDERED: ROCURONIUM 10 MG/ML,10ML ONE (10:00)
[2020-03-11] MEDS ORDERED: PROPOFOL 10 MG/ML, 20ML ONE (10:00)
[2020-03-11] MEDS ORDERED: MIDAZOLAM 1 MG/ML, 2ML ONE (10:04)
[2020-03-11] MEDS ORDERED: VISIPAQUE 270 MG/ML, 50ML BOTTLE ONE (11:23)
[2020-03-11] MEDS ORDERED: FENTANYL PF 100 MCG/2ML ONE (11:30)
[2020-03-11] MEDS ORDERED: hydrALAzine 20 MG/ML, 1ML IV PRN (11:30)
[2020-03-11] MEDS ORDERED: ONDANSETRON 2MG/ML, 2ML IVPush PRN (11:30)
[2020-03-11] MEDS ORDERED: MEPERIDINE/PF 25MG/0.5ML IVPush PRN (11:30)
[2020-03-11] MEDS ORDERED: HYDROmorphone 1 MG/ML, 1ML INJ IV PRN (11:30)
[2020-03-11] MEDS ORDERED: ALBUTEROL SULFATE 2.5 MG/3 ML NPPB PRN (11:30)
[2020-03-11] MEDS ORDERED: KETOROLAC 30 MG/1 ML IV PRN (11:30)
[2020-03-11] MEDS ORDERED: PROMETHAZINE 25 MG/ML, 1ML IV PRN (11:30)
[2020-03-11] MEDS ORDERED: LABETALOL 5MG/ML, 20ML IV PRN (11:30)
[2020-03-11] MEDS ORDERED: OXYcodone 5 MG/5 ML ORAL.SOL UDC PO PRN (11:30)
[2020-03-11] MEDS ORDERED: DIAZEPAM 5 MG/ML, 2ML IV PRN ×2 (11:30)
[2020-03-11] MEDS: FENTANYL PF 100 MCG/2ML IV PRN ×2 (11:35→11:48)
[2020-03-11] MEDS ORDERED: OXYcodone 5 MG/5 ML ORAL.SOL UDC ONE (11:43)
[2020-03-11] MEDS: CEFTRIAXONE PMX 2GM/50ML 50 ML IV SCH (13:09)
[2020-03-11] MEDS: HYDROmorphone 1 MG/ML, 1ML INJ IVPush PRN (13:21)
[2020-03-11] MEDS: FERROUS SULFATE 325 MG TABLET PO SCH (16:12)
[2020-03-11] MEDS: TRAZODONE 100MG TABLET PO SCH (19:54)
[2020-03-11 20:07] VITALS: BP 143/88
[2020-03-11] MEDS: AMOXICILLIN/CLAV 875-125MG TABLET PO SCH (20:45)
[2020-03-12] MEDS: OXYcodone IR 5MG TABLET PO PRN ×2 (00:10→21:13)
[2020-03-12 01:42] VITALS: BP 128/78
[2020-03-12] MEDS: FUROSEMIDE 20 MG TABLET PO SCH ×2 (06:18→16:56)
[2020-03-12] MEDS: HEPARIN 5,000 UNITS/ML, 1ML SQ SCH ×3 (06:18→21:13)
[2020-03-12] MEDS: PANTOPRAZOLE 40MG TABLET PO SCH (07:30)
[2020-03-12] MEDS: LACTULOSE 20 GM/30 ML UDC PO SCH (07:40)
[2020-03-12] MEDS: DULOXETINE 30 MG CAPSULE.DR PO SCH (07:40)
[2020-03-12] MEDS: SEVELAMER CARBONATE 800MG TAB PO SCH ×3 (07:40→16:55)
[2020-03-12] MEDS: LACTOBACILLUS CHEW TABLET PO SCH ×3 (07:40→21:13)
[2020-03-12] MEDS: AMOXICILLIN/CLAV 875-125MG TABLET PO SCH ×2 (07:40→21:12)
[2020-03-12] MEDS: DOCUSATE 100 MG CAPSULE PO SCH ×2 (07:40→21:12)
[2020-03-12] MEDS: MAGNESIUM OXIDE 400 MG TABLET PO SCH (07:40)
[2020-03-12] MEDS: BUPROPION 100 MG TABLET PO SCH ×2 (07:40→12:10)
[2020-03-12] MEDS: HYDROmorphone 1 MG/ML, 1ML INJ IV PRN ×3 (07:40→16:58)
[2020-03-12] MEDS: GABAPENTIN 300 MG CAPSULE PO SCH ×3 (07:41→21:13)
[2020-03-12] MEDS: SODIUM CHLORIDE FLUSH 10ML SYR IVF SCH ×2 (07:41→21:12)
[2020-03-12] MEDS: DAKIN'S SOLUTION 1/4 STRENGTH 1,000 ML IRRIG SOLN EXT SCH (07:41)
[2020-03-12 07:51] VITALS: BP 108/75
[2020-03-12] MEDS: DARBEPOETIN 200 MCG/ML SQ SCH (12:10)
[2020-03-12 14:31] VITALS: BP 128/82
[2020-03-12 18:39] VITALS: BP 115/70
[2020-03-12] MEDS: TRAZODONE 100MG TABLET PO SCH (21:12)
[2020-03-13 01:11] VITALS: BP 115/76
[2020-03-13] MEDS: OXYcodone IR 5MG TABLET PO PRN ×3 (01:19→20:08)
[2020-03-13] MEDS: FUROSEMIDE 20 MG TABLET PO SCH ×3 (06:07→17:28)
[2020-03-13] MEDS: HEPARIN 5,000 UNITS/ML, 1ML SQ SCH ×3 (06:08→21:37)
[2020-03-13 06:15] LABS: BASOPHILS # (AUTO) 0.05 x10^3/uL (0-0.1); BASOPHILS % (AUTO) 1 % (0-1); EOSINOPHILS % (AUTO) 5 % (1-7); LYMPHOCYTES # (AUTO) 1.54 x10^3/uL (1-3.4); LYMPHOCYTES % (AUTO) 16 % (22-44); MD NO; MEAN CORPUSCULAR HEMOGLOBIN 26.7 pg (27.5-34.5); MEAN CORPUSCULAR HGB CONC 31.9 g/dL (33.2-36.2); MEAN CORPUSCULAR VOLUME 83.8 fL (81-97); MONOCYTES # (AUTO) 0.66 x10^3/uL (0.2-0.8); MONOCYTES % (AUTO) 7 % (2-9); NEUTROPHILS # (AUTO) 6.76 x10^3/uL (1.8-6.8); NEUTROPHILS % (AUTO) 71 % (42-75); PLATELET COUNT 269 x10^3/uL (130-400); RED BLOOD COUNT 4.07 x10^6/uL (4.38-5.82); RED CELL DISTRIBUTION WIDTH 16.6 % (9.4-14.8)
[2020-03-13 06:16] LABS: CHLORIDE 106 mmol/L (98-107)
[2020-03-13 06:23] LABS: ALANINE AMINOTRANSFERASE 14 U/L (12-78); ALBUMIN 2.3 g/dL (3.4-5.0); ALKALINE PHOSPHATASE 105 U/L (45-117); ANION GAP 3 mmol/L (5-15); BILIRUBIN,TOTAL 0.3 mg/dL (0.2-1.0); CALCIUM 9.6 mg/dL (8.5-10.1); CREATININE 1.74 mg/dL (0.7-1.3); TOTAL PROTEIN 7.2 g/dL (6.4-8.2)
[2020-03-13 09:00] VITALS: BP 110/82
[2020-03-13] MEDS: BUPROPION 100 MG TABLET PO SCH ×2 (09:05→13:38)
[2020-03-13] MEDS: MAGNESIUM OXIDE 400 MG TABLET PO SCH (09:05)
[2020-03-13] MEDS: SEVELAMER CARBONATE 800MG TAB PO SCH ×3 (09:05→17:28)
[2020-03-13] MEDS: PANTOPRAZOLE 40MG TABLET PO SCH (09:05)
[2020-03-13] MEDS: DULOXETINE 30 MG CAPSULE.DR PO SCH (09:05)
[2020-03-13] MEDS: AMOXICILLIN/CLAV 875-125MG TABLET PO SCH ×2 (09:05→21:35)
[2020-03-13] MEDS: HYDROmorphone 1 MG/ML, 1ML INJ IV PRN ×3 (09:05→17:28)
[2020-03-13] MEDS: SODIUM CHLORIDE FLUSH 10ML SYR IVF SCH ×2 (09:05→20:08)
[2020-03-13] MEDS: DOCUSATE 100 MG CAPSULE PO SCH ×2 (09:06→20:09)
[2020-03-13] MEDS: LACTOBACILLUS CHEW TABLET PO SCH ×3 (09:06→20:08)
[2020-03-13] MEDS: GABAPENTIN 300 MG CAPSULE PO SCH ×3 (09:06→20:09)
[2020-03-13] MEDS: HYDROmorphone 1 MG/ML, 1ML INJ IVPush PRN (10:51)
[2020-03-13 13:55] VITALS: BP 121/88
[2020-03-13] MEDS: FERROUS SULFATE 325 MG TABLET PO SCH (17:28)
[2020-03-13 18:53] VITALS: BP 119/78
[2020-03-13] MEDS: TRAZODONE 100MG TABLET PO SCH (20:09)
[2020-03-14 01:00] VITALS: BP 133/89
[2020-03-14] MEDS: HEPARIN 5,000 UNITS/ML, 1ML SQ SCH ×3 (05:56→23:31)
[2020-03-14] MEDS: FUROSEMIDE 20 MG TABLET PO SCH ×4 (05:56→16:52)
[2020-03-14] MEDS: PANTOPRAZOLE 40MG TABLET PO SCH (08:52)
[2020-03-14] MEDS: AMOXICILLIN/CLAV 875-125MG TABLET PO SCH ×2 (08:53→21:55)
[2020-03-14] MEDS: BUPROPION 100 MG TABLET PO SCH ×2 (08:53→12:23)
[2020-03-14] MEDS: SODIUM CHLORIDE FLUSH 10ML SYR IVF SCH ×2 (08:53→21:00)
[2020-03-14] MEDS: LACTOBACILLUS CHEW TABLET PO SCH ×3 (08:53→21:55)
[2020-03-14] MEDS: DULOXETINE 30 MG CAPSULE.DR PO SCH (08:53)
[2020-03-14] MEDS: SEVELAMER CARBONATE 800MG TAB PO SCH ×3 (08:53→16:51)
[2020-03-14] MEDS: DOCUSATE 100 MG CAPSULE PO SCH ×2 (08:53→21:55)
[2020-03-14] MEDS: GABAPENTIN 300 MG CAPSULE PO SCH ×3 (08:54→21:55)
[2020-03-14] MEDS: MAGNESIUM OXIDE 400 MG TABLET PO SCH (08:54)
[2020-03-14] MEDS: FENTANYL 75 MCG PATCH TD SCH (08:54)
[2020-03-14] MEDS: OXYcodone IR 5MG TABLET PO PRN ×3 (08:55→21:55)
[2020-03-14 09:10] VITALS: BP 122/81
[2020-03-14] MEDS: FENTANYL REMOVE PATCH NOTE XX SCH (09:10)
[2020-03-14] MEDS: FLAVOXATE 100 MG TABLET PO SCH ×2 (10:13→21:54)
[2020-03-14] MEDS: HYDROmorphone 1 MG/ML, 1ML INJ IV PRN ×2 (12:23→17:58)
[2020-03-14 14:55] VITALS: BP 123/87
[2020-03-14 18:50] VITALS: BP 126/90
[2020-03-14] MEDS: TRAZODONE 100MG TABLET PO SCH (21:54)
[2020-03-15 01:49] VITALS: BP 109/73
[2020-03-15] MEDS: FUROSEMIDE 20 MG TABLET PO SCH ×2 (06:27→16:58)
[2020-03-15] MEDS: OXYcodone IR 5MG TABLET PO PRN ×3 (06:28→22:39)
[2020-03-15] MEDS: HEPARIN 5,000 UNITS/ML, 1ML SQ SCH ×3 (06:28→21:21)
[2020-03-15 07:02] VITALS: BP 100/59
[2020-03-15] MEDS: PANTOPRAZOLE 40MG TABLET PO SCH (07:29)
[2020-03-15] MEDS: SEVELAMER CARBONATE 800MG TAB PO SCH ×3 (07:29→16:59)
[2020-03-15] MEDS: MAGNESIUM OXIDE 400 MG TABLET PO SCH (07:30)
[2020-03-15] MEDS: LACTOBACILLUS CHEW TABLET PO SCH ×3 (07:30→21:20)
[2020-03-15] MEDS: DOCUSATE 100 MG CAPSULE PO SCH ×2 (07:30→21:20)
[2020-03-15] MEDS: DULOXETINE 30 MG CAPSULE.DR PO SCH (07:30)
[2020-03-15] MEDS: FLAVOXATE 100 MG TABLET PO SCH ×2 (07:30→21:20)
[2020-03-15] MEDS: GABAPENTIN 300 MG CAPSULE PO SCH ×3 (07:30→21:20)
[2020-03-15] MEDS: AMOXICILLIN/CLAV 875-125MG TABLET PO SCH ×2 (07:30→21:20)
[2020-03-15] MEDS: BUPROPION 100 MG TABLET PO SCH ×2 (07:30→12:36)
[2020-03-15] MEDS: SODIUM CHLORIDE FLUSH 10ML SYR IVF SCH ×2 (07:31→21:21)
[2020-03-15] MEDS: HYDROmorphone 1 MG/ML, 1ML INJ IV PRN ×3 (09:26→16:01)
[2020-03-15] MEDS: HYDROmorphone 1 MG/ML, 1ML INJ IVPush PRN (09:57)
[2020-03-15 12:39] VITALS: BP 109/70
[2020-03-15] MEDS: FERROUS SULFATE 325 MG TABLET PO SCH (16:00)
[2020-03-15] MEDS: LACTULOSE 20 GM/30 ML UDC PO PRN (16:58)
[2020-03-15 18:55] VITALS: BP 120/80
[2020-03-15] MEDS: TRAZODONE 100MG TABLET PO SCH (21:20)
[2020-03-16 03:11] VITALS: BP 112/74
[2020-03-16] MEDS: HEPARIN 5,000 UNITS/ML, 1ML SQ SCH ×3 (06:06→23:23)
[2020-03-16] MEDS: FUROSEMIDE 20 MG TABLET PO SCH ×2 (06:06→16:36)
[2020-03-16 08:00] VITALS: BP 119/74
[2020-03-16] MEDS: SEVELAMER CARBONATE 800MG TAB PO SCH ×3 (08:21→16:36)
[2020-03-16] MEDS: BUPROPION 100 MG TABLET PO SCH ×2 (08:21→12:15)
[2020-03-16] MEDS: DOCUSATE 100 MG CAPSULE PO SCH ×2 (08:21→21:59)
[2020-03-16] MEDS: DULOXETINE 30 MG CAPSULE.DR PO SCH (08:21)
[2020-03-16] MEDS: SODIUM CHLORIDE FLUSH 10ML SYR IVF SCH ×2 (08:21→21:59)
[2020-03-16] MEDS: PANTOPRAZOLE 40MG TABLET PO SCH (08:21)
[2020-03-16] MEDS: AMOXICILLIN/CLAV 875-125MG TABLET PO SCH ×2 (08:21→21:59)
[2020-03-16] MEDS: GABAPENTIN 300 MG CAPSULE PO SCH ×3 (08:22→21:59)
[2020-03-16] MEDS: MAGNESIUM OXIDE 400 MG TABLET PO SCH (08:22)
[2020-03-16] MEDS: FLAVOXATE 100 MG TABLET PO SCH ×2 (08:22→21:59)
[2020-03-16] MEDS: LACTOBACILLUS CHEW TABLET PO SCH ×3 (08:22→21:58)
[2020-03-16] MEDS: OXYcodone IR 5MG TABLET PO PRN ×4 (08:22→21:58)
[2020-03-16] MEDS: HYDROmorphone 1 MG/ML, 1ML INJ IV PRN ×3 (08:23→16:37)
[2020-03-16] MEDS: PHENAZOPYRIDINE 200 MG TABLET PO PRN ×2 (12:15→21:57)
[2020-03-16 15:16] VITALS: BP 126/82
[2020-03-16 21:47] VITALS: BP 113/66
[2020-03-16] MEDS: TRAZODONE 100MG TABLET PO SCH (21:59)
[2020-03-17] MEDS: OXYcodone IR 5MG TABLET PO PRN ×2 (02:24→21:13)
[2020-03-17 03:00] VITALS: BP 108/64
[2020-03-17 07:00] VITALS: BP 114/72
[2020-03-17] MEDS: FUROSEMIDE 20 MG TABLET PO SCH ×2 (07:15→17:13)
[2020-03-17] MEDS: HEPARIN 5,000 UNITS/ML, 1ML SQ SCH ×3 (07:15→22:57)
[2020-03-17] MEDS: DULOXETINE 30 MG CAPSULE.DR PO SCH (07:52)
[2020-03-17] MEDS: MAGNESIUM OXIDE 400 MG TABLET PO SCH (07:52)
[2020-03-17] MEDS: SEVELAMER CARBONATE 800MG TAB PO SCH ×3 (07:52→17:13)
[2020-03-17] MEDS: GABAPENTIN 300 MG CAPSULE PO SCH ×3 (07:52→21:12)
[2020-03-17] MEDS: PANTOPRAZOLE 40MG TABLET PO SCH (07:52)
[2020-03-17] MEDS: SODIUM CHLORIDE FLUSH 10ML SYR IVF SCH ×2 (07:53→21:11)
[2020-03-17] MEDS: AMOXICILLIN/CLAV 875-125MG TABLET PO SCH ×2 (07:53→21:11)
[2020-03-17] MEDS: LACTOBACILLUS CHEW TABLET PO SCH ×3 (07:53→21:12)
[2020-03-17] MEDS: FLAVOXATE 100 MG TABLET PO SCH ×2 (07:53→21:11)
[2020-03-17] MEDS: DOCUSATE 100 MG CAPSULE PO SCH ×2 (07:53→21:11)
[2020-03-17] MEDS: FENTANYL REMOVE PATCH NOTE XX SCH (07:53)
[2020-03-17] MEDS: BUPROPION 100 MG TABLET PO SCH ×2 (07:53→12:16)
[2020-03-17] MEDS: FENTANYL 75 MCG PATCH TD SCH (09:25)
[2020-03-17] MEDS: HYDROmorphone 1 MG/ML, 1ML INJ IV PRN ×2 (09:25→12:23)
[2020-03-17 13:42] VITALS: BP 126/82
[2020-03-17] MEDS: FERROUS SULFATE 325 MG TABLET PO SCH (17:13)
[2020-03-17] MEDS: LACTULOSE 20 GM/30 ML UDC PO PRN (18:41)
[2020-03-17 19:31] VITALS: BP 119/85
[2020-03-17] MEDS: TRAZODONE 100MG TABLET PO SCH (21:12)
[2020-03-18 00:54] VITALS: BP 109/68
[2020-03-18] MEDS: OXYcodone IR 5MG TABLET PO PRN ×4 (01:24→22:04)
[2020-03-18] MEDS: HEPARIN 5,000 UNITS/ML, 1ML SQ SCH ×3 (06:33→21:59)
[2020-03-18] MEDS: FUROSEMIDE 20 MG TABLET PO SCH ×2 (06:38→18:37)
[2020-03-18] MEDS: SEVELAMER CARBONATE 800MG TAB PO SCH ×3 (09:13→16:20)
[2020-03-18] MEDS: HYDROmorphone 1 MG/ML, 1ML INJ IV PRN ×3 (09:13→18:37)
[2020-03-18] MEDS: GABAPENTIN 300 MG CAPSULE PO SCH ×3 (09:13→21:58)
[2020-03-18] MEDS: DULOXETINE 30 MG CAPSULE.DR PO SCH (09:13)
[2020-03-18] MEDS: MAGNESIUM OXIDE 400 MG TABLET PO SCH (09:14)
[2020-03-18] MEDS: LACTOBACILLUS CHEW TABLET PO SCH ×3 (09:14→22:03)
[2020-03-18] MEDS: FLAVOXATE 100 MG TABLET PO SCH ×2 (09:14→21:58)
[2020-03-18] MEDS: BUPROPION 100 MG TABLET PO SCH ×2 (09:14→12:16)
[2020-03-18] MEDS: LACTULOSE 20 GM/30 ML UDC PO SCH (09:15)
[2020-03-18] MEDS: DOCUSATE 100 MG CAPSULE PO SCH ×2 (09:15→21:58)
[2020-03-18] MEDS: PANTOPRAZOLE 40MG TABLET PO SCH (09:15)
[2020-03-18] MEDS: SODIUM CHLORIDE FLUSH 10ML SYR IVF SCH ×2 (09:15→21:59)
[2020-03-18 09:28] VITALS: BP 121/77
[2020-03-18] MEDS: HYDROmorphone 1 MG/ML, 1ML INJ IVPush PRN (11:16)
[2020-03-18 13:23] VITALS: BP 121/70
[2020-03-18 19:50] VITALS: BP 109/70
[2020-03-18] MEDS: TRAZODONE 100MG TABLET PO SCH (21:58)
[2020-03-19 01:21] VITALS: BP 116/74
[2020-03-19] MEDS: FUROSEMIDE 20 MG TABLET PO SCH ×2 (05:57→17:42)
[2020-03-19] MEDS: HEPARIN 5,000 UNITS/ML, 1ML SQ SCH ×3 (05:57→21:07)
[2020-03-19] MEDS: OXYcodone IR 5MG TABLET PO PRN ×5 (05:58→22:12)
[2020-03-19] MEDS: BUPROPION 100 MG TABLET PO SCH ×2 (08:31→11:58)
[2020-03-19] MEDS: FLAVOXATE 100 MG TABLET PO SCH ×2 (08:31→21:05)
[2020-03-19] MEDS: LACTOBACILLUS CHEW TABLET PO SCH ×3 (08:32→21:04)
[2020-03-19] MEDS: PANTOPRAZOLE 40MG TABLET PO SCH (08:32)
[2020-03-19] MEDS: DULOXETINE 30 MG CAPSULE.DR PO SCH (08:32)
[2020-03-19] MEDS: DOCUSATE 100 MG CAPSULE PO SCH ×2 (08:32→21:04)
[2020-03-19] MEDS: SEVELAMER CARBONATE 800MG TAB PO SCH ×3 (08:32→16:48)
[2020-03-19] MEDS: MAGNESIUM OXIDE 400 MG TABLET PO SCH (08:32)
[2020-03-19] MEDS: GABAPENTIN 300 MG CAPSULE PO SCH ×3 (08:32→21:04)
[2020-03-19] MEDS: HYDROmorphone 1 MG/ML, 1ML INJ IV PRN ×3 (08:33→17:42)
[2020-03-19] MEDS: LACTULOSE 20 GM/30 ML UDC PO SCH (08:33)
[2020-03-19] MEDS: SODIUM CHLORIDE FLUSH 10ML SYR IVF SCH ×2 (08:33→21:05)
[2020-03-19 08:35] VITALS: BP 104/64
[2020-03-19 14:30] VITALS: BP 116/80
[2020-03-19] MEDS: FERROUS SULFATE 325 MG TABLET PO SCH (16:48)
[2020-03-19 21:00] VITALS: BP 118/79
[2020-03-19] MEDS: TRAZODONE 100MG TABLET PO SCH (21:04)
[2020-03-20 05:20] VITALS: BP 118/72
[2020-03-20] MEDS: HEPARIN 5,000 UNITS/ML, 1ML SQ SCH ×3 (05:41→21:53)
[2020-03-20] MEDS: FUROSEMIDE 20 MG TABLET PO SCH ×2 (05:41→17:12)
[2020-03-20 07:45] VITALS: BP 117/78
[2020-03-20] MEDS: PANTOPRAZOLE 40MG TABLET PO SCH (08:14)
[2020-03-20] MEDS: DOCUSATE 100 MG CAPSULE PO SCH ×2 (08:15→21:52)
[2020-03-20] MEDS: SODIUM CHLORIDE FLUSH 10ML SYR IVF SCH ×2 (08:15→21:54)
[2020-03-20] MEDS: BUPROPION 100 MG TABLET PO SCH ×2 (08:15→12:17)
[2020-03-20] MEDS: DULOXETINE 30 MG CAPSULE.DR PO SCH (08:15)
[2020-03-20] MEDS: FLAVOXATE 100 MG TABLET PO SCH ×2 (08:15→21:53)
[2020-03-20] MEDS: SEVELAMER CARBONATE 800MG TAB PO SCH ×3 (08:15→17:11)
[2020-03-20] MEDS: MAGNESIUM OXIDE 400 MG TABLET PO SCH (08:15)
[2020-03-20] MEDS: GABAPENTIN 300 MG CAPSULE PO SCH ×3 (08:15→21:52)
[2020-03-20] MEDS: OXYcodone IR 5MG TABLET PO PRN ×3 (08:16→18:22)
[2020-03-20] MEDS: LACTULOSE 20 GM/30 ML UDC PO SCH (08:16)
[2020-03-20] MEDS: HYDROmorphone 1 MG/ML, 1ML INJ IV PRN ×3 (08:16→18:22)
[2020-03-20] MEDS: LACTOBACILLUS CHEW TABLET PO SCH ×3 (08:16→21:52)
[2020-03-20] MEDS: HYDROmorphone 1 MG/ML, 1ML INJ IVPush PRN (11:15)
[2020-03-20] MEDS: PHENAZOPYRIDINE 200 MG TABLET PO PRN (11:19)
[2020-03-20] MEDS: FENTANYL REMOVE PATCH NOTE XX SCH (11:20)
[2020-03-20] MEDS: FENTANYL 75 MCG PATCH TD SCH (11:20)
[2020-03-20 13:08] VITALS: BP 125/83
[2020-03-20] MEDS: ONDANSETRON 2MG/ML, 2ML IVPush PRN (14:00)
[2020-03-20 18:41] VITALS: BP 114/67
[2020-03-20] MEDS: TRAZODONE 100MG TABLET PO SCH (21:53)
[2020-03-21 03:50] VITALS: BP 106/64
[2020-03-21] MEDS: FUROSEMIDE 20 MG TABLET PO SCH ×3 (06:00→16:52)
[2020-03-21] MEDS: HEPARIN 5,000 UNITS/ML, 1ML SQ SCH ×3 (06:04→23:51)
[2020-03-21] MEDS: PANTOPRAZOLE 40MG TABLET PO SCH (08:16)
[2020-03-21] MEDS: SEVELAMER CARBONATE 800MG TAB PO SCH ×3 (08:16→16:51)
[2020-03-21] MEDS: SODIUM CHLORIDE FLUSH 10ML SYR IVF SCH ×2 (08:17→23:51)
[2020-03-21] MEDS: BUPROPION 100 MG TABLET PO SCH ×2 (08:17→12:13)
[2020-03-21] MEDS: DOCUSATE 100 MG CAPSULE PO SCH ×2 (08:17→23:50)
[2020-03-21] MEDS: LACTULOSE 20 GM/30 ML UDC PO SCH (08:18)
[2020-03-21] MEDS: MAGNESIUM OXIDE 400 MG TABLET PO SCH (08:18)
[2020-03-21] MEDS: LACTOBACILLUS CHEW TABLET PO SCH ×3 (08:18→23:50)
[2020-03-21] MEDS: FLAVOXATE 100 MG TABLET PO SCH ×2 (08:18→23:51)
[2020-03-21] MEDS: DULOXETINE 30 MG CAPSULE.DR PO SCH (08:18)
[2020-03-21] MEDS: GABAPENTIN 300 MG CAPSULE PO SCH ×3 (08:18→23:58)
[2020-03-21] MEDS: OXYcodone IR 5MG TABLET PO PRN ×2 (08:19→12:27)
[2020-03-21 08:27] VITALS: BP 122/78
[2020-03-21] MEDS: PHENAZOPYRIDINE 200 MG TABLET PO PRN (09:02)
[2020-03-21] MEDS ORDERED: OXYcodone 5 MG/5 ML ORAL.SOL UDC ONE (12:00)
[2020-03-21 13:56] VITALS: BP 124/82
[2020-03-21] MEDS: HYDROmorphone 1 MG/ML, 1ML INJ IV PRN ×2 (14:58→18:42)
[2020-03-21] MEDS: FERROUS SULFATE 325 MG TABLET PO SCH (15:11)
[2020-03-21 20:09] VITALS: BP 109/67
[2020-03-21] MEDS: TRAZODONE 100MG TABLET PO SCH (23:50)
[2020-03-22 00:06] VITALS: BP 126/82
[2020-03-22] MEDS: FUROSEMIDE 20 MG TABLET PO SCH ×2 (06:21→17:44)
[2020-03-22] MEDS: BUPROPION 100 MG TABLET PO SCH ×2 (09:11→12:07)
[2020-03-22] MEDS: MAGNESIUM OXIDE 400 MG TABLET PO SCH (09:11)
[2020-03-22] MEDS: PANTOPRAZOLE 40MG TABLET PO SCH (09:11)
[2020-03-22] MEDS: LACTOBACILLUS CHEW TABLET PO SCH ×3 (09:12→22:28)
[2020-03-22] MEDS: HYDROmorphone 1 MG/ML, 1ML INJ IV PRN ×4 (09:12→17:54)
[2020-03-22] MEDS: GABAPENTIN 300 MG CAPSULE PO SCH ×3 (09:12→22:28)
[2020-03-22] MEDS: SEVELAMER CARBONATE 800MG TAB PO SCH ×3 (09:12→15:56)
[2020-03-22] MEDS: DOCUSATE 100 MG CAPSULE PO SCH ×2 (09:12→22:28)
[2020-03-22] MEDS: FLAVOXATE 100 MG TABLET PO SCH ×2 (09:12→22:28)
[2020-03-22] MEDS: DULOXETINE 30 MG CAPSULE.DR PO SCH (09:12)
[2020-03-22] MEDS: LACTULOSE 20 GM/30 ML UDC PO SCH (09:12)
[2020-03-22] MEDS: SODIUM CHLORIDE FLUSH 10ML SYR IVF SCH ×2 (09:13→22:28)
[2020-03-22] MEDS: HEPARIN 5,000 UNITS/ML, 1ML SQ SCH ×2 (09:20→15:56)
[2020-03-22 09:21] VITALS: BP 106/70
[2020-03-22] MEDS: PHENAZOPYRIDINE 200 MG TABLET PO PRN (09:37)
[2020-03-22] MEDS: HYDROmorphone 1 MG/ML, 1ML INJ IVPush PRN (11:04)
[2020-03-22 14:22] VITALS: BP 107/73
[2020-03-22 21:12] VITALS: BP 124/84
[2020-03-22] MEDS: TRAZODONE 100MG TABLET PO SCH (22:28)
[2020-03-23] MEDS: HEPARIN 5,000 UNITS/ML, 1ML SQ SCH ×3 (00:14→15:53)
[2020-03-23 01:54] VITALS: BP 107/83
[2020-03-23] MEDS: FUROSEMIDE 20 MG TABLET PO SCH ×2 (06:36→17:07)
[2020-03-23] MEDS: PANTOPRAZOLE 40MG TABLET PO SCH (07:39)
[2020-03-23] MEDS: MAGNESIUM OXIDE 400 MG TABLET PO SCH (07:39)
[2020-03-23] MEDS: SEVELAMER CARBONATE 800MG TAB PO SCH ×3 (07:39→17:07)
[2020-03-23] MEDS: LACTOBACILLUS CHEW TABLET PO SCH ×2 (07:39→15:53)
[2020-03-23] MEDS: FLAVOXATE 100 MG TABLET PO SCH (07:39)
[2020-03-23] MEDS: GABAPENTIN 300 MG CAPSULE PO SCH ×2 (07:39→15:53)
[2020-03-23] MEDS: DULOXETINE 30 MG CAPSULE.DR PO SCH (07:39)
[2020-03-23] MEDS: DOCUSATE 100 MG CAPSULE PO SCH (07:40)
[2020-03-23] MEDS: HYDROmorphone 1 MG/ML, 1ML INJ IV PRN ×3 (07:40→18:01)
[2020-03-23] MEDS: BUPROPION 100 MG TABLET PO SCH ×2 (07:40→11:59)
[2020-03-23] MEDS: MODAFINIL 100 MG TABLET PO SCH (07:41)
[2020-03-23] MEDS: FENTANYL REMOVE PATCH NOTE XX SCH (07:41)
[2020-03-23] MEDS: LACTULOSE 20 GM/30 ML UDC PO SCH (07:41)
[2020-03-23] MEDS: SODIUM CHLORIDE FLUSH 10ML SYR IVF SCH ×2 (07:42→21:00)
[2020-03-23 07:54] VITALS: BP 124/85
[2020-03-23] MEDS: FENTANYL 75 MCG PATCH TD SCH (10:00)
[2020-03-23] MEDS: OXYcodone IR 5MG TABLET PO PRN ×2 (12:02→19:49)
[2020-03-23 13:05] VITALS: BP 119/83
[2020-03-23] MEDS: FERROUS SULFATE 325 MG TABLET PO SCH (15:53)
[2020-03-23] MEDS: HYDROmorphone 1 MG/ML, 1ML INJ IVPush PRN (20:23)
[2020-03-23 21:41] VITALS: BP 114/74
[2020-03-24] MEDS: GABAPENTIN 300 MG CAPSULE PO SCH ×4 (00:26→21:09)
[2020-03-24] MEDS: FLAVOXATE 100 MG TABLET PO SCH ×3 (00:26→21:09)
[2020-03-24] MEDS: LACTOBACILLUS CHEW TABLET PO SCH ×4 (00:27→21:09)
[2020-03-24] MEDS: DOCUSATE 100 MG CAPSULE PO SCH ×3 (00:27→21:09)
[2020-03-24] MEDS: TRAZODONE 100MG TABLET PO SCH ×2 (00:28→21:09)
[2020-03-24] MEDS: HEPARIN 5,000 UNITS/ML, 1ML SQ SCH ×3 (00:29→16:34)
[2020-03-24 02:03] VITALS: BP 108/72
[2020-03-24 08:53] VITALS: BP 104/71
[2020-03-24] MEDS: LACTULOSE 20 GM/30 ML UDC PO SCH (09:03)
[2020-03-24] MEDS: HYDROmorphone 1 MG/ML, 1ML INJ IV PRN ×3 (09:03→16:34)
[2020-03-24] MEDS: MAGNESIUM OXIDE 400 MG TABLET PO SCH (09:04)
[2020-03-24] MEDS: DULOXETINE 30 MG CAPSULE.DR PO SCH (09:04)
[2020-03-24] MEDS: BUPROPION 100 MG TABLET PO SCH ×2 (09:04→12:38)
[2020-03-24] MEDS: MODAFINIL 100 MG TABLET PO SCH (09:04)
[2020-03-24] MEDS: SEVELAMER CARBONATE 800MG TAB PO SCH ×3 (09:04→16:15)
[2020-03-24] MEDS: PANTOPRAZOLE 40MG TABLET PO SCH (09:04)
[2020-03-24] MEDS: SODIUM CHLORIDE FLUSH 10ML SYR IVF SCH ×2 (09:05→21:10)
[2020-03-24] MEDS: OXYcodone IR 5MG TABLET PO PRN ×3 (09:05→21:11)
[2020-03-24] MEDS: FUROSEMIDE 20 MG TABLET PO SCH ×2 (09:24→18:07)
[2020-03-24 14:09] VITALS: BP 120/69
[2020-03-24 17:23] LABS: MICROSCOPIC INDICATED
[2020-03-24 19:54] VITALS: BP 119/77
[2020-03-25] MEDS: HEPARIN 5,000 UNITS/ML, 1ML SQ SCH ×3 (00:04→16:22)
[2020-03-25 01:46] VITALS: BP 104/69
[2020-03-25] MEDS: FUROSEMIDE 20 MG TABLET PO SCH ×2 (05:55→17:22)
[2020-03-25] MEDS: SEVELAMER CARBONATE 800MG TAB PO SCH ×3 (09:01→16:23)
[2020-03-25] MEDS: GABAPENTIN 300 MG CAPSULE PO SCH ×3 (09:01→20:35)
[2020-03-25] MEDS: MAGNESIUM OXIDE 400 MG TABLET PO SCH (09:01)
[2020-03-25] MEDS: LACTULOSE 20 GM/30 ML UDC PO SCH (09:01)
[2020-03-25] MEDS: DOCUSATE 100 MG CAPSULE PO SCH ×2 (09:01→20:35)
[2020-03-25] MEDS: PANTOPRAZOLE 40MG TABLET PO SCH (09:02)
[2020-03-25] MEDS: LACTOBACILLUS CHEW TABLET PO SCH ×3 (09:02→20:34)
[2020-03-25] MEDS: DULOXETINE 30 MG CAPSULE.DR PO SCH (09:02)
[2020-03-25] MEDS: FLAVOXATE 100 MG TABLET PO SCH ×2 (09:02→20:35)
[2020-03-25] MEDS: SODIUM CHLORIDE FLUSH 10ML SYR IVF SCH ×2 (09:03→20:36)
[2020-03-25] MEDS: MODAFINIL 100 MG TABLET PO SCH (09:03)
[2020-03-25 09:05] VITALS: BP 120/68
[2020-03-25] MEDS: BUPROPION 100 MG TABLET PO SCH ×2 (09:05→12:19)
[2020-03-25] MEDS: HYDROmorphone 1 MG/ML, 1ML INJ IV PRN ×3 (09:19→17:22)
[2020-03-25] MEDS: OXYcodone IR 5MG TABLET PO PRN ×3 (10:33→20:34)
[2020-03-25] MEDS: HYDROmorphone 1 MG/ML, 1ML INJ IVPush PRN (13:35)
[2020-03-25] MEDS: ONDANSETRON 2MG/ML, 2ML IVPush PRN (13:35)
[2020-03-25 14:40] VITALS: BP 112/75
[2020-03-25] MEDS: FERROUS SULFATE 325 MG TABLET PO SCH (16:19)
[2020-03-25 19:21] VITALS: BP 107/71
[2020-03-25] MEDS: TRAZODONE 100MG TABLET PO SCH (20:35)
[2020-03-26] MEDS: HEPARIN 5,000 UNITS/ML, 1ML SQ SCH ×4 (00:39→23:43)
[2020-03-26 03:48] VITALS: BP 138/69
[2020-03-26] MEDS: FUROSEMIDE 20 MG TABLET PO SCH ×2 (05:45→17:32)
[2020-03-26] MEDS: OXYcodone IR 5MG TABLET PO PRN ×4 (05:49→21:37)
[2020-03-26 08:03] VITALS: BP 115/74
[2020-03-26] MEDS: HYDROmorphone 1 MG/ML, 1ML INJ IV PRN ×3 (08:10→16:22)
[2020-03-26] MEDS: SEVELAMER CARBONATE 800MG TAB PO SCH ×3 (08:10→16:22)
[2020-03-26] MEDS: SODIUM CHLORIDE FLUSH 10ML SYR IVF SCH ×2 (08:11→21:15)
[2020-03-26] MEDS: LACTOBACILLUS CHEW TABLET PO SCH ×3 (08:12→21:16)
[2020-03-26] MEDS: PANTOPRAZOLE 40MG TABLET PO SCH (08:12)
[2020-03-26] MEDS: LACTULOSE 20 GM/30 ML UDC PO SCH (08:12)
[2020-03-26] MEDS: MAGNESIUM OXIDE 400 MG TABLET PO SCH (08:12)
[2020-03-26] MEDS: DOCUSATE 100 MG CAPSULE PO SCH ×2 (08:12→21:16)
[2020-03-26] MEDS: DULOXETINE 30 MG CAPSULE.DR PO SCH (08:13)
[2020-03-26] MEDS: MODAFINIL 100 MG TABLET PO SCH (08:13)
[2020-03-26] MEDS: BUPROPION 100 MG TABLET PO SCH ×2 (08:13→12:05)
[2020-03-26] MEDS: FENTANYL REMOVE PATCH NOTE XX SCH (08:13)
[2020-03-26] MEDS: GABAPENTIN 300 MG CAPSULE PO SCH ×3 (08:13→21:16)
[2020-03-26] MEDS: FLAVOXATE 100 MG TABLET PO SCH ×2 (08:13→21:16)
[2020-03-26] MEDS: CEFDINIR 300 MG CAPSULE PO SCH ×2 (08:13→21:16)
[2020-03-26] MEDS ORDERED: DAKIN'S SOLUTION 1/4 STRENGTH 1,000 ML IRRIG SOLN EXT SCH (09:00)
[2020-03-26] MEDS ORDERED: HYDROmorphone 1 MG/ML, 1ML INJ IV ONE (10:00)
[2020-03-26] MEDS: FENTANYL 75 MCG PATCH TD SCH (10:00)
[2020-03-26 13:40] VITALS: BP 111/73
[2020-03-26 19:03] VITALS: BP 110/62
[2020-03-26] MEDS: TRAZODONE 100MG TABLET PO SCH (23:43)
[2020-03-27 02:14] VITALS: BP 101/61
[2020-03-27] MEDS: FUROSEMIDE 20 MG TABLET PO SCH ×2 (05:30→17:48)
[2020-03-27] MEDS: PANTOPRAZOLE 40MG TABLET PO SCH (05:32)
[2020-03-27 07:10] VITALS: BP 95/61
[2020-03-27] MEDS: LACTOBACILLUS CHEW TABLET PO SCH ×3 (07:39→21:18)
[2020-03-27] MEDS: FLAVOXATE 100 MG TABLET PO SCH ×2 (07:39→21:18)
[2020-03-27] MEDS: SENNA/DOCUSATE TABLET PO SCH (07:40)
[2020-03-27] MEDS: DULOXETINE 30 MG CAPSULE.DR PO SCH (07:40)
[2020-03-27] MEDS: HEPARIN 5,000 UNITS/ML, 1ML SQ SCH ×2 (07:40→16:25)
[2020-03-27] MEDS: HYDROmorphone 1 MG/ML, 1ML INJ IV PRN ×3 (07:40→16:26)
[2020-03-27] MEDS: MODAFINIL 100 MG TABLET PO SCH (07:40)
[2020-03-27] MEDS: BUPROPION 100 MG TABLET PO SCH ×2 (07:41→11:23)
[2020-03-27] MEDS: SODIUM CHLORIDE FLUSH 10ML SYR IVF SCH ×2 (07:41→21:17)
[2020-03-27] MEDS: DOCUSATE 100 MG CAPSULE PO SCH ×2 (07:41→21:18)
[2020-03-27] MEDS: GABAPENTIN 300 MG CAPSULE PO SCH ×3 (07:41→21:18)
[2020-03-27] MEDS: MAGNESIUM OXIDE 400 MG TABLET PO SCH (07:41)
[2020-03-27] MEDS: CEFDINIR 300 MG CAPSULE PO SCH ×2 (07:41→21:18)
[2020-03-27] MEDS: SEVELAMER CARBONATE 800MG TAB PO SCH ×3 (07:41→16:25)
[2020-03-27] MEDS ORDERED: OXYcodone 5 MG/5 ML ORAL.SOL UDC ONE (10:31)
[2020-03-27] MEDS: HYDROmorphone 1 MG/ML, 1ML INJ IVPush PRN (10:47)
[2020-03-27] MEDS: LACTULOSE 20 GM/30 ML UDC PO PRN (11:23)
[2020-03-27] MEDS: OXYcodone IR 5MG TABLET PO PRN ×3 (11:30→22:17)
[2020-03-27 12:30] VITALS: BP 119/74
[2020-03-27] MEDS: FERROUS SULFATE 325 MG TABLET PO SCH (16:25)
[2020-03-27] MEDS: METOCLOPRAMIDE 5 MG/ML, 2ML IV PRN (16:26)
[2020-03-27 18:57] VITALS: BP 114/69
[2020-03-28] MEDS: HEPARIN 5,000 UNITS/ML, 1ML SQ SCH ×4 (00:01→23:12)
[2020-03-28] MEDS: TRAZODONE 100MG TABLET PO SCH ×2 (00:01→23:13)
[2020-03-28 04:18] VITALS: BP 113/71
[2020-03-28] MEDS: PANTOPRAZOLE 40MG TABLET PO SCH (06:28)
[2020-03-28] MEDS: FUROSEMIDE 20 MG TABLET PO SCH ×2 (06:28→17:37)
[2020-03-28 06:38] VITALS: BP 96/65
[2020-03-28] MEDS: ONDANSETRON 2MG/ML, 2ML IVPush PRN (08:57)
[2020-03-28] MEDS: BUPROPION 100 MG TABLET PO SCH ×2 (09:00→12:01)
[2020-03-28] MEDS: DOCUSATE 100 MG CAPSULE PO SCH ×2 (09:00→21:54)
[2020-03-28] MEDS: CEFDINIR 300 MG CAPSULE PO SCH ×2 (09:00→21:55)
[2020-03-28] MEDS: SODIUM CHLORIDE FLUSH 10ML SYR IVF SCH ×2 (09:00→21:55)
[2020-03-28] MEDS: MAGNESIUM OXIDE 400 MG TABLET PO SCH (09:00)
[2020-03-28] MEDS: SEVELAMER CARBONATE 800MG TAB PO SCH ×3 (09:01→16:43)
[2020-03-28] MEDS: DULOXETINE 30 MG CAPSULE.DR PO SCH (09:02)
[2020-03-28] MEDS: LACTOBACILLUS CHEW TABLET PO SCH ×3 (09:02→21:55)
[2020-03-28] MEDS: OXYcodone IR 5MG TABLET PO PRN ×3 (09:02→19:24)
[2020-03-28] MEDS: GABAPENTIN 300 MG CAPSULE PO SCH ×3 (09:02→21:55)
[2020-03-28] MEDS: MODAFINIL 100 MG TABLET PO SCH (09:02)
[2020-03-28] MEDS: FLAVOXATE 100 MG TABLET PO SCH ×2 (09:02→21:55)
[2020-03-28] MEDS: SENNA/DOCUSATE TABLET PO SCH (09:03)
[2020-03-28] MEDS: HYDROmorphone 1 MG/ML, 1ML INJ IV PRN ×2 (09:04→16:45)
[2020-03-28 14:42] VITALS: BP 125/84
[2020-03-28 22:16] VITALS: BP 128/55
[2020-03-28] MEDS: HYDROmorphone 1 MG/ML, 1ML INJ IVPush PRN (23:12)
[2020-03-29] MEDS: LACTULOSE 20 GM/30 ML UDC PO PRN (00:19)
[2020-03-29] MEDS: OXYcodone IR 5MG TABLET PO PRN ×3 (00:19→14:03)
[2020-03-29 00:54] VITALS: BP 95/63
[2020-03-29] MEDS: PANTOPRAZOLE 40MG TABLET PO SCH (06:15)
[2020-03-29] MEDS: FUROSEMIDE 20 MG TABLET PO SCH ×2 (06:16→16:49)
[2020-03-29 06:17] VITALS: BP 106/74
[2020-03-29] MEDS: ONDANSETRON 2MG/ML, 2ML IVPush PRN (09:06)
[2020-03-29] MEDS: SEVELAMER CARBONATE 800MG TAB PO SCH ×3 (09:09→16:49)
[2020-03-29] MEDS: LACTOBACILLUS CHEW TABLET PO SCH ×3 (09:10→23:38)
[2020-03-29] MEDS: BUPROPION 100 MG TABLET PO SCH ×2 (09:10→12:14)
[2020-03-29] MEDS: SENNA/DOCUSATE TABLET PO SCH (09:10)
[2020-03-29] MEDS: FLAVOXATE 100 MG TABLET PO SCH ×2 (09:10→23:38)
[2020-03-29] MEDS: MODAFINIL 100 MG TABLET PO SCH (09:10)
[2020-03-29] MEDS: DOCUSATE 100 MG CAPSULE PO SCH ×2 (09:10→23:38)
[2020-03-29] MEDS: MAGNESIUM OXIDE 400 MG TABLET PO SCH (09:10)
[2020-03-29] MEDS: GABAPENTIN 300 MG CAPSULE PO SCH ×3 (09:10→23:38)
[2020-03-29] MEDS: DULOXETINE 30 MG CAPSULE.DR PO SCH (09:11)
[2020-03-29] MEDS: HYDROmorphone 1 MG/ML, 1ML INJ IV PRN ×2 (09:11→12:14)
[2020-03-29] MEDS: FENTANYL REMOVE PATCH NOTE XX SCH (09:11)
[2020-03-29] MEDS: HEPARIN 5,000 UNITS/ML, 1ML SQ SCH ×3 (09:11→23:39)
[2020-03-29] MEDS: SODIUM CHLORIDE FLUSH 10ML SYR IVF SCH ×2 (09:12→23:39)
[2020-03-29] MEDS: FENTANYL 75 MCG PATCH TD SCH (10:34)
[2020-03-29] MEDS: HYDROmorphone 1 MG/ML, 1ML INJ IVPush PRN (10:51)
[2020-03-29 13:01] VITALS: BP 116/78
[2020-03-29] MEDS: FERROUS SULFATE 325 MG TABLET PO SCH (16:49)
[2020-03-29 20:22] VITALS: BP 108/72
[2020-03-29] MEDS: TRAZODONE 100MG TABLET PO SCH (23:38)
[2020-03-30 00:22] VITALS: BP 103/65
[2020-03-30] MEDS: FUROSEMIDE 20 MG TABLET PO SCH ×2 (05:37→16:54)
[2020-03-30 07:28] VITALS: BP 114/77
[2020-03-30] MEDS: PANTOPRAZOLE 40MG TABLET PO SCH (08:01)
[2020-03-30] MEDS: FLAVOXATE 100 MG TABLET PO SCH (08:01)
[2020-03-30] MEDS: SEVELAMER CARBONATE 800MG TAB PO SCH ×3 (08:01→16:54)
[2020-03-30] MEDS: MODAFINIL 100 MG TABLET PO SCH (08:01)
[2020-03-30] MEDS: GABAPENTIN 300 MG CAPSULE PO SCH ×2 (08:02→16:24)
[2020-03-30] MEDS: LACTOBACILLUS CHEW TABLET PO SCH ×2 (08:02→16:24)
[2020-03-30] MEDS: SENNA/DOCUSATE TABLET PO SCH (08:02)
[2020-03-30] MEDS: DOCUSATE 100 MG CAPSULE PO SCH (08:02)
[2020-03-30] MEDS: MAGNESIUM OXIDE 400 MG TABLET PO SCH (08:02)
[2020-03-30] MEDS: BUPROPION 100 MG TABLET PO SCH ×2 (08:02→12:12)
[2020-03-30] MEDS: DULOXETINE 30 MG CAPSULE.DR PO SCH (08:02)
[2020-03-30] MEDS: SODIUM CHLORIDE FLUSH 10ML SYR IVF SCH (08:03)
[2020-03-30] MEDS: HYDROmorphone 1 MG/ML, 1ML INJ IV PRN ×3 (08:03→16:53)
[2020-03-30] MEDS: HEPARIN 5,000 UNITS/ML, 1ML SQ SCH ×2 (08:03→16:24)
[2020-03-30] MEDS: OXYcodone IR 5MG TABLET PO PRN ×3 (10:55→22:24)
[2020-03-30 13:36] VITALS: BP 109/73
[2020-03-30 19:41] VITALS: BP 127/77
[2020-03-31] MEDS: GABAPENTIN 300 MG CAPSULE PO SCH ×4 (00:32→21:21)
[2020-03-31] MEDS: SODIUM CHLORIDE FLUSH 10ML SYR IVF SCH ×3 (00:33→21:19)
[2020-03-31] MEDS: TRAZODONE 100MG TABLET PO SCH ×2 (00:33→21:20)
[2020-03-31] MEDS: DOCUSATE 100 MG CAPSULE PO SCH ×3 (00:33→21:20)
[2020-03-31] MEDS: FLAVOXATE 100 MG TABLET PO SCH ×3 (00:33→21:20)
[2020-03-31] MEDS: HEPARIN 5,000 UNITS/ML, 1ML SQ SCH ×3 (00:34→16:39)
[2020-03-31] MEDS: LACTOBACILLUS CHEW TABLET PO SCH ×4 (00:34→21:20)
[2020-03-31] MEDS: OXYcodone IR 5MG TABLET PO PRN ×4 (04:10→21:21)
[2020-03-31] MEDS: FUROSEMIDE 20 MG TABLET PO SCH ×2 (06:37→17:36)
[2020-03-31] MEDS: HYDROmorphone 1 MG/ML, 1ML INJ IV PRN ×3 (08:37→16:38)
[2020-03-31] MEDS: SEVELAMER CARBONATE 800MG TAB PO SCH ×3 (08:38→16:39)
[2020-03-31] MEDS: PANTOPRAZOLE 40MG TABLET PO SCH (08:38)
[2020-03-31] MEDS: BUPROPION 100 MG TABLET PO SCH ×2 (08:38→12:01)
[2020-03-31] MEDS: MAGNESIUM OXIDE 400 MG TABLET PO SCH (08:39)
[2020-03-31] MEDS: MODAFINIL 100 MG TABLET PO SCH (08:39)
[2020-03-31] MEDS: DULOXETINE 30 MG CAPSULE.DR PO SCH (08:39)
[2020-03-31] MEDS: SENNA/DOCUSATE TABLET PO SCH (08:40)
[2020-03-31] MEDS: LACTULOSE 20 GM/30 ML UDC PO PRN (09:13)
[2020-03-31 09:14] VITALS: BP 122/84
[2020-03-31 13:39] VITALS: BP 127/76
[2020-03-31] MEDS: FERROUS SULFATE 325 MG TABLET PO SCH (16:39)
[2020-03-31 18:41] VITALS: BP 118/80
[2020-04-01] MEDS: HEPARIN 5,000 UNITS/ML, 1ML SQ SCH ×3 (00:17→16:05)
[2020-04-01 00:41] VITALS: BP 112/74
[2020-04-01] MEDS: OXYcodone IR 5MG TABLET PO PRN ×5 (02:05→22:29)
[2020-04-01] MEDS: FUROSEMIDE 20 MG TABLET PO SCH ×2 (05:47→17:14)
[2020-04-01 09:00] VITALS: BP 122/70
[2020-04-01] MEDS: HYDROmorphone 1 MG/ML, 1ML INJ IV PRN ×2 (09:00→12:21)
[2020-04-01] MEDS: SODIUM CHLORIDE FLUSH 10ML SYR IVF SCH ×2 (09:00→22:29)
[2020-04-01] MEDS: BUPROPION 100 MG TABLET PO SCH ×2 (09:01→12:21)
[2020-04-01] MEDS: DULOXETINE 30 MG CAPSULE.DR PO SCH (09:02)
[2020-04-01] MEDS: MAGNESIUM OXIDE 400 MG TABLET PO SCH (09:02)
[2020-04-01] MEDS: FLAVOXATE 100 MG TABLET PO SCH ×2 (09:02→21:40)
[2020-04-01] MEDS: MODAFINIL 100 MG TABLET PO SCH (09:02)
[2020-04-01] MEDS: SEVELAMER CARBONATE 800MG TAB PO SCH ×3 (09:02→16:40)
[2020-04-01] MEDS: GABAPENTIN 300 MG CAPSULE PO SCH ×3 (09:02→21:40)
[2020-04-01] MEDS: DOCUSATE 100 MG CAPSULE PO SCH ×2 (09:02→21:40)
[2020-04-01] MEDS: PANTOPRAZOLE 40MG TABLET PO SCH (09:02)
[2020-04-01] MEDS: LACTOBACILLUS CHEW TABLET PO SCH ×3 (09:02→21:40)
[2020-04-01] MEDS: SENNA/DOCUSATE TABLET PO SCH (09:03)
[2020-04-01] MEDS: FENTANYL REMOVE PATCH NOTE XX SCH (09:07)
[2020-04-01] MEDS: FENTANYL 75 MCG PATCH TD SCH (09:45)
[2020-04-01] MEDS: HYDROmorphone 1 MG/ML, 1ML INJ IVPush PRN ×2 (09:45→21:40)
[2020-04-01 13:55] VITALS: BP 116/77
[2020-04-01 15:43] VITALS: BP 117/77
[2020-04-01] MEDS ORDERED: HYDROmorphone 1 MG/ML, 1ML INJ IV ONE (16:30)
[2020-04-01] MEDS ORDERED: HYDROmorphone 1 MG/ML, 1ML INJ IM ONE (16:30)
[2020-04-01 19:48] VITALS: BP 126/78
[2020-04-01] MEDS: TRAZODONE 100MG TABLET PO SCH (21:40)
[2020-04-02 02:09] VITALS: BP 117/71
[2020-04-02] MEDS: OXYcodone IR 5MG TABLET PO PRN ×4 (02:25→21:23)
[2020-04-02] MEDS: HEPARIN 5,000 UNITS/ML, 1ML SQ SCH ×5 (02:25→21:21)
[2020-04-02] MEDS: SEVELAMER CARBONATE 800MG TAB PO SCH ×3 (10:28→16:24)
[2020-04-02] MEDS: HYDROmorphone 1 MG/ML, 1ML INJ IV PRN ×2 (10:28→12:15)
[2020-04-02] MEDS: DOCUSATE 100 MG CAPSULE PO SCH ×2 (10:29→21:24)
[2020-04-02] MEDS: GABAPENTIN 300 MG CAPSULE PO SCH ×3 (10:29→21:24)
[2020-04-02] MEDS: FLAVOXATE 100 MG TABLET PO SCH ×2 (10:29→21:23)
[2020-04-02] MEDS: BUPROPION 100 MG TABLET PO SCH ×2 (10:29→12:00)
[2020-04-02] MEDS: DULOXETINE 30 MG CAPSULE.DR PO SCH (10:29)
[2020-04-02] MEDS: MAGNESIUM OXIDE 400 MG TABLET PO SCH (10:29)
[2020-04-02] MEDS: FUROSEMIDE 20 MG TABLET PO SCH ×2 (10:29→18:26)
[2020-04-02] MEDS: SENNA/DOCUSATE TABLET PO SCH (10:29)
[2020-04-02] MEDS: MODAFINIL 100 MG TABLET PO SCH (10:29)
[2020-04-02] MEDS: SODIUM CHLORIDE FLUSH 10ML SYR IVF SCH ×2 (10:30→21:24)
[2020-04-02] MEDS: PANTOPRAZOLE 40MG TABLET PO SCH (10:30)
[2020-04-02] MEDS: LACTOBACILLUS CHEW TABLET PO SCH ×3 (12:14→21:23)
[2020-04-02 13:11] VITALS: BP 112/75
[2020-04-02] MEDS: HYDROmorphone 1 MG/ML, 1ML INJ IVPush PRN (16:22)
[2020-04-02] MEDS: FERROUS SULFATE 325 MG TABLET PO SCH (16:23)
[2020-04-02 19:02] VITALS: BP 104/69
[2020-04-02] MEDS: METHYLNALTREXONE 12 MG/0.6 ML SYR SQ PRN (21:22)
[2020-04-03] MEDS: HYDROmorphone 1 MG/ML, 1ML INJ IVPush PRN (00:34)
[2020-04-03] MEDS: OXYcodone IR 5MG TABLET PO PRN ×4 (01:17→22:33)
[2020-04-03] MEDS: TRAZODONE 100MG TABLET PO SCH ×2 (01:17→22:33)
[2020-04-03 02:34] VITALS: BP 125/75
[2020-04-03] MEDS: FUROSEMIDE 20 MG TABLET PO SCH ×2 (06:00→17:46)
[2020-04-03 07:20] VITALS: BP 101/58
[2020-04-03] MEDS: PANTOPRAZOLE 40MG TABLET PO SCH (08:43)
[2020-04-03] MEDS: SEVELAMER CARBONATE 800MG TAB PO SCH ×3 (08:43→17:46)
[2020-04-03] MEDS: BUPROPION 100 MG TABLET PO SCH ×2 (08:43→13:01)
[2020-04-03] MEDS: DULOXETINE 30 MG CAPSULE.DR PO SCH (08:44)
[2020-04-03] MEDS: SENNA/DOCUSATE TABLET PO SCH (08:44)
[2020-04-03] MEDS: DOCUSATE 100 MG CAPSULE PO SCH ×2 (08:44→22:32)
[2020-04-03] MEDS: SODIUM CHLORIDE FLUSH 10ML SYR IVF SCH ×2 (08:44→22:33)
[2020-04-03] MEDS: LACTOBACILLUS CHEW TABLET PO SCH ×3 (08:45→22:33)
[2020-04-03] MEDS: MODAFINIL 100 MG TABLET PO SCH (08:45)
[2020-04-03] MEDS: FLAVOXATE 100 MG TABLET PO SCH ×2 (08:45→22:33)
[2020-04-03] MEDS: MAGNESIUM OXIDE 400 MG TABLET PO SCH (08:45)
[2020-04-03] MEDS: LACTULOSE 20 GM/30 ML UDC PO PRN (08:45)
[2020-04-03] MEDS: GABAPENTIN 300 MG CAPSULE PO SCH ×3 (08:45→22:33)
[2020-04-03] MEDS: HYDROmorphone 1 MG/ML, 1ML INJ IV PRN ×2 (08:46→15:11)
[2020-04-03] MEDS ORDERED: KETOROLAC 30 MG/1 ML IVPush ONE (11:30)
[2020-04-03 13:45] VITALS: BP 117/79
[2020-04-03] MEDS: PHENAZOPYRIDINE 200 MG TABLET PO PRN (15:09)
[2020-04-03] MEDS: HEPARIN 5,000 UNITS/ML, 1ML SQ SCH (17:46)
[2020-04-03 20:37] VITALS: BP 103/69
[2020-04-04] MEDS: HEPARIN 5,000 UNITS/ML, 1ML SQ SCH ×3 (02:19→18:31)
[2020-04-04] MEDS: HYDROmorphone 1 MG/ML, 1ML INJ IVPush PRN ×2 (02:20→22:31)
[2020-04-04] MEDS: PHENAZOPYRIDINE 200 MG TABLET PO PRN ×2 (02:21→08:30)
[2020-04-04] MEDS: OXYcodone IR 5MG TABLET PO PRN ×5 (03:23→20:59)
[2020-04-04] MEDS: HYDROmorphone 1 MG/ML, 1ML INJ IV PRN ×3 (08:23→14:59)
[2020-04-04] MEDS: PANTOPRAZOLE 40MG TABLET PO SCH (08:27)
[2020-04-04] MEDS: SEVELAMER CARBONATE 800MG TAB PO SCH ×3 (08:28→17:14)
[2020-04-04] MEDS: BUPROPION 100 MG TABLET PO SCH ×2 (08:28→12:18)
[2020-04-04] MEDS: FUROSEMIDE 20 MG TABLET PO SCH ×2 (08:28→17:15)
[2020-04-04] MEDS: FENTANYL REMOVE PATCH NOTE XX SCH (08:28)
[2020-04-04] MEDS: DOCUSATE 100 MG CAPSULE PO SCH ×2 (08:29→20:58)
[2020-04-04] MEDS: GABAPENTIN 300 MG CAPSULE PO SCH ×3 (08:29→20:58)
[2020-04-04] MEDS: DULOXETINE 30 MG CAPSULE.DR PO SCH (08:29)
[2020-04-04] MEDS: LACTOBACILLUS CHEW TABLET PO SCH ×3 (08:29→20:57)
[2020-04-04] MEDS: MODAFINIL 100 MG TABLET PO SCH (08:29)
[2020-04-04] MEDS: SODIUM CHLORIDE FLUSH 10ML SYR IVF SCH ×2 (08:29→20:59)
[2020-04-04] MEDS: MAGNESIUM OXIDE 400 MG TABLET PO SCH (08:30)
[2020-04-04] MEDS: SENNA/DOCUSATE TABLET PO SCH (08:30)
[2020-04-04] MEDS: FLAVOXATE 100 MG TABLET PO SCH (08:30)
[2020-04-04] MEDS: LACTULOSE 20 GM/30 ML UDC PO PRN (08:30)
[2020-04-04] MEDS: FENTANYL 75 MCG PATCH TD SCH (08:35)
[2020-04-04 08:48] VITALS: BP 103/68
[2020-04-04] MEDS: OXYBUTYNIN CHLORIDE 5 MG TABLET PO SCH ×2 (11:14→20:58)
[2020-04-04 12:52] VITALS: BP 105/68
[2020-04-04] MEDS ORDERED: OXYcodone IR 30 MG TABLET ONE (14:54)
[2020-04-04 16:00] VITALS: BP 120/78
[2020-04-04] MEDS: FERROUS SULFATE 325 MG TABLET PO SCH (17:14)
[2020-04-04 19:43] VITALS: BP 109/72
[2020-04-04] MEDS: TRAZODONE 100MG TABLET PO SCH (20:58)
[2020-04-05] MEDS: PHENAZOPYRIDINE 200 MG TABLET PO PRN ×4 (00:50→20:39)
[2020-04-05] MEDS: OXYcodone IR 5MG TABLET PO PRN ×4 (00:58→22:18)
[2020-04-05 01:15] VITALS: BP 112/84
[2020-04-05] MEDS: HEPARIN 5,000 UNITS/ML, 1ML SQ SCH ×4 (02:13→23:52)
[2020-04-05 03:37] LABS: BASOPHILS # (AUTO) 0.08 x10^3/uL (0-0.1); BASOPHILS % (AUTO) 1 % (0-1); EOSINOPHILS # (AUTO) 0.32 x10^3/uL (0-0.4); EOSINOPHILS % (AUTO) 3 % (1-7); LYMPHOCYTES # (AUTO) 1.42 x10^3/uL (1-3.4); LYMPHOCYTES % (AUTO) 13 % (22-44); MD NO; MEAN CORPUSCULAR HEMOGLOBIN 26.4 pg (27.5-34.5); MEAN CORPUSCULAR HGB CONC 32.1 g/dL (33.2-36.2); MEAN CORPUSCULAR VOLUME 82.3 fL (81-97); MEAN PLATELET VOLUME 8.1 fL (7.4-10.4); MONOCYTES # (AUTO) 0.45 x10^3/uL (0.2-0.8); MONOCYTES % (AUTO) 4 % (2-9); NEUTROPHILS # (AUTO) 9.09 x10^3/uL (1.8-6.8); NEUTROPHILS % (AUTO) 80 % (42-75); PLATELET COUNT 288 x10^3/uL (130-400); RED BLOOD COUNT 4.24 x10^6/uL (4.38-5.82); RED CELL DISTRIBUTION WIDTH 16.8 % (9.4-14.8)
[2020-04-05 03:41] LABS: HCT (SEDRATE) 34.9 % (39.2-51.8)
[2020-04-05 03:47] LABS: ALANINE AMINOTRANSFERASE 15 U/L (12-78); ALBUMIN 2.5 g/dL (3.4-5.0); ANION GAP 8 mmol/L (5-15); CALCIUM 9.4 mg/dL (8.5-10.1); CHLORIDE 103 mmol/L (98-107); CREATININE 2.04 mg/dL (0.7-1.3)
[2020-04-05 03:53] LABS: ALKALINE PHOSPHATASE 131 U/L (45-117); BILIRUBIN,TOTAL 0.3 mg/dL (0.2-1.0); TOTAL PROTEIN 7.2 g/dL (6.4-8.2)
[2020-04-05] MEDS: BUPROPION 100 MG TABLET PO SCH ×2 (08:46→11:18)
[2020-04-05] MEDS: PANTOPRAZOLE 40MG TABLET PO SCH (08:46)
[2020-04-05] MEDS: SODIUM CHLORIDE FLUSH 10ML SYR IVF SCH ×2 (08:46→20:39)
[2020-04-05] MEDS: SEVELAMER CARBONATE 800MG TAB PO SCH ×3 (08:46→17:28)
[2020-04-05] MEDS: DOCUSATE 100 MG CAPSULE PO SCH ×2 (08:46→20:39)
[2020-04-05] MEDS: LACTOBACILLUS CHEW TABLET PO SCH ×3 (08:47→20:39)
[2020-04-05] MEDS: MODAFINIL 100 MG TABLET PO SCH (08:47)
[2020-04-05] MEDS: OXYBUTYNIN CHLORIDE 5 MG TABLET PO SCH ×4 (08:47→20:39)
[2020-04-05] MEDS: DULOXETINE 30 MG CAPSULE.DR PO SCH (08:47)
[2020-04-05] MEDS: GABAPENTIN 300 MG CAPSULE PO SCH ×3 (08:47→20:39)
[2020-04-05] MEDS: MAGNESIUM OXIDE 400 MG TABLET PO SCH (08:47)
[2020-04-05] MEDS: HYDROmorphone 1 MG/ML, 1ML INJ IV PRN ×2 (08:48→18:17)
[2020-04-05] MEDS: LACTULOSE 20 GM/30 ML UDC PO PRN (08:49)
[2020-04-05 08:50] VITALS: BP 114/75
[2020-04-05] MEDS: SENNA/DOCUSATE TABLET PO SCH (09:00)
[2020-04-05] MEDS: HYDROmorphone 1 MG/ML, 1ML INJ IVPush PRN ×2 (11:18→23:09)
[2020-04-05] MEDS ORDERED: DAKIN'S SOLUTION 1/4 STRENGTH 1,000 ML IRRIG SOLN EXT PRN (13:00)
[2020-04-05 16:25] VITALS: BP 109/69
[2020-04-05 19:15] LABS: MICROSCOPIC INDICATED
[2020-04-05 20:16] VITALS: BP 120/80
[2020-04-05] MEDS: TRAZODONE 100MG TABLET PO SCH (20:39)
[2020-04-06 01:14] VITALS: BP 105/72
[2020-04-06] MEDS: OXYcodone IR 5MG TABLET PO PRN ×2 (03:17→20:41)
[2020-04-06 03:39] LABS: BASOPHILS # (AUTO) 0.05 x10^3/uL (0-0.1); BASOPHILS % (AUTO) 1 % (0-1); EOSINOPHILS # (AUTO) 0.32 x10^3/uL (0-0.4); EOSINOPHILS % (AUTO) 3 % (1-7); LYMPHOCYTES # (AUTO) 1.38 x10^3/uL (1-3.4); LYMPHOCYTES % (AUTO) 13 % (22-44); MD NO; MEAN CORPUSCULAR HEMOGLOBIN 26.2 pg (27.5-34.5); MEAN CORPUSCULAR HGB CONC 31.8 g/dL (33.2-36.2); MEAN CORPUSCULAR VOLUME 82.1 fL (81-97); MEAN PLATELET VOLUME 7.8 fL (7.4-10.4); MONOCYTES # (AUTO) 0.78 x10^3/uL (0.2-0.8); MONOCYTES % (AUTO) 8 % (2-9); NEUTROPHILS # (AUTO) 7.76 x10^3/uL (1.8-6.8); NEUTROPHILS % (AUTO) 76 % (42-75); PLATELET COUNT 283 x10^3/uL (130-400); RED BLOOD COUNT 4.13 x10^6/uL (4.38-5.82)
[2020-04-06 03:45] LABS: ANION GAP 8 mmol/L (5-15); CALCIUM 9.3 mg/dL (8.5-10.1); CHLORIDE 104 mmol/L (98-107); CREATININE 1.94 mg/dL (0.7-1.3)
[2020-04-06] MEDS: PANTOPRAZOLE 40MG TABLET PO SCH (05:45)
[2020-04-06 07:00] VITALS: BP 109/68
[2020-04-06] MEDS: HEPARIN 5,000 UNITS/ML, 1ML SQ SCH ×2 (08:52→17:01)
[2020-04-06] MEDS: LACTULOSE 20 GM/30 ML UDC PO PRN (08:54)
[2020-04-06] MEDS: SEVELAMER CARBONATE 800MG TAB PO SCH ×3 (08:54→17:01)
[2020-04-06] MEDS: BUPROPION 100 MG TABLET PO SCH ×2 (08:55→12:18)
[2020-04-06] MEDS: DULOXETINE 30 MG CAPSULE.DR PO SCH (08:55)
[2020-04-06] MEDS: MAGNESIUM OXIDE 400 MG TABLET PO SCH (08:56)
[2020-04-06] MEDS: GABAPENTIN 300 MG CAPSULE PO SCH ×2 (08:56→17:00)
[2020-04-06] MEDS: SODIUM CHLORIDE FLUSH 10ML SYR IVF SCH (08:56)
[2020-04-06] MEDS: LACTOBACILLUS CHEW TABLET PO SCH ×2 (08:56→17:01)
[2020-04-06] MEDS: MODAFINIL 100 MG TABLET PO SCH (08:56)
[2020-04-06] MEDS: SENNA/DOCUSATE TABLET PO SCH (08:57)
[2020-04-06] MEDS: OXYBUTYNIN CHLORIDE 5 MG TABLET PO SCH ×2 (08:57→17:01)
[2020-04-06] MEDS: DOCUSATE 100 MG CAPSULE PO SCH (08:57)
[2020-04-06] MEDS: HYDROmorphone 1 MG/ML, 1ML INJ IV PRN (08:58)
[2020-04-06] MEDS: HYDROmorphone 1 MG/ML, 1ML INJ IVPush PRN (11:04)
[2020-04-06] MEDS: FLUCONAZOLE 200 MG TABLET PO SCH (12:18)
[2020-04-06 13:00] VITALS: BP 126/78
[2020-04-06] MEDS: FERROUS SULFATE 325 MG TABLET PO SCH (17:01)
[2020-04-06 19:45] VITALS: BP 118/79
[2020-04-06] MEDS: TRAZODONE 100MG TABLET PO SCH (21:00)
[2020-04-07] MEDS: PHENAZOPYRIDINE 200 MG TABLET PO PRN (00:52)
[2020-04-07] MEDS: OXYcodone IR 5MG TABLET PO PRN ×4 (00:52→21:05)
[2020-04-07] MEDS: LACTOBACILLUS CHEW TABLET PO SCH ×4 (00:52→21:04)
[2020-04-07] MEDS: OXYBUTYNIN CHLORIDE 5 MG TABLET PO SCH ×4 (00:53→21:04)
[2020-04-07] MEDS: DOCUSATE 100 MG CAPSULE PO SCH ×3 (00:53→21:03)
[2020-04-07] MEDS: SODIUM CHLORIDE FLUSH 10ML SYR IVF SCH ×3 (00:55→21:03)
[2020-04-07] MEDS: GABAPENTIN 300 MG CAPSULE PO SCH ×4 (00:56→21:04)
[2020-04-07] MEDS: HEPARIN 5,000 UNITS/ML, 1ML SQ SCH ×3 (00:57→16:07)
[2020-04-07] MEDS: HYDROmorphone 1 MG/ML, 1ML INJ IVPush PRN ×3 (02:31→23:00)
[2020-04-07 03:23] VITALS: BP 112/70
[2020-04-07] MEDS: SEVELAMER CARBONATE 800MG TAB PO SCH ×3 (07:49→16:07)
[2020-04-07] MEDS: SENNA/DOCUSATE TABLET PO SCH (07:49)
[2020-04-07] MEDS: BUPROPION 100 MG TABLET PO SCH ×2 (07:49→12:00)
[2020-04-07] MEDS: MODAFINIL 100 MG TABLET PO SCH (07:49)
[2020-04-07] MEDS: FLUCONAZOLE 200 MG TABLET PO SCH (07:49)
[2020-04-07] MEDS: MAGNESIUM OXIDE 400 MG TABLET PO SCH (07:50)
[2020-04-07] MEDS: DULOXETINE 30 MG CAPSULE.DR PO SCH (07:50)
[2020-04-07] MEDS: PANTOPRAZOLE 40MG TABLET PO SCH (07:50)
[2020-04-07] MEDS: FENTANYL REMOVE PATCH NOTE XX SCH (07:51)
[2020-04-07] MEDS: FENTANYL 75 MCG PATCH TD SCH (07:51)
[2020-04-07 08:48] VITALS: BP 114/78
[2020-04-07] MEDS: ONDANSETRON 2MG/ML, 2ML IVPush PRN (12:29)
[2020-04-07 14:07] VITALS: BP 119/79
[2020-04-07] MEDS: HYDROmorphone 1 MG/ML, 1ML INJ IV PRN (16:54)
[2020-04-07 18:28] VITALS: BP 121/73
[2020-04-07] MEDS: TRAZODONE 100MG TABLET PO SCH (21:03)
[2020-04-08 00:17] VITALS: BP 110/75
[2020-04-08] MEDS: HEPARIN 5,000 UNITS/ML, 1ML SQ SCH ×3 (01:07→16:25)
[2020-04-08] MEDS: OXYcodone IR 5MG TABLET PO PRN ×4 (05:16→20:41)
[2020-04-08 07:11] VITALS: BP 124/84
[2020-04-08] MEDS: PANTOPRAZOLE 40MG TABLET PO SCH (07:56)
[2020-04-08] MEDS: SEVELAMER CARBONATE 800MG TAB PO SCH ×3 (07:56→16:23)
[2020-04-08] MEDS: MAGNESIUM OXIDE 400 MG TABLET PO SCH (07:56)
[2020-04-08] MEDS: DULOXETINE 30 MG CAPSULE.DR PO SCH (07:56)
[2020-04-08] MEDS: GABAPENTIN 300 MG CAPSULE PO SCH ×3 (07:56→20:40)
[2020-04-08] MEDS: BUPROPION 100 MG TABLET PO SCH ×2 (07:56→11:51)
[2020-04-08] MEDS: DOCUSATE 100 MG CAPSULE PO SCH ×2 (07:56→20:39)
[2020-04-08] MEDS: SENNA/DOCUSATE TABLET PO SCH (07:56)
[2020-04-08] MEDS: LACTOBACILLUS CHEW TABLET PO SCH ×3 (07:56→20:40)
[2020-04-08] MEDS: OXYBUTYNIN CHLORIDE 5 MG TABLET PO SCH ×3 (07:56→20:40)
[2020-04-08] MEDS: MODAFINIL 100 MG TABLET PO SCH (07:57)
[2020-04-08] MEDS: FLUCONAZOLE 200 MG TABLET PO SCH (07:57)
[2020-04-08] MEDS: SODIUM CHLORIDE FLUSH 10ML SYR IVF SCH ×2 (07:58→20:39)
[2020-04-08] MEDS: HYDROmorphone 1 MG/ML, 1ML INJ IVPush PRN ×2 (10:03→23:56)
[2020-04-08] MEDS ORDERED: DAPTOMYCIN 700 MG in SODIUM CHLORIDE 0.9% 100 ML IVPB SCH (11:00)
[2020-04-08] MEDS: MEROPENEM 1 GM in SODIUM CHLORIDE 0.9% 100 ML IV SCH ×2 (12:24→20:44)
[2020-04-08 13:22] VITALS: BP 109/75
[2020-04-08 14:39] LABS: HCT (SEDRATE) 34.2 % (39.2-51.8)
[2020-04-08 14:40] LABS: BASOPHILS # (AUTO) 0.05 x10^3/uL (0-0.1); BASOPHILS % (AUTO) 1 % (0-1); EOSINOPHILS % (AUTO) 2 % (1-7); LYMPHOCYTES # (AUTO) 0.92 x10^3/uL (1-3.4); LYMPHOCYTES % (AUTO) 10 % (22-44); MD NO; MEAN CORPUSCULAR HEMOGLOBIN 26.3 pg (27.5-34.5); MEAN CORPUSCULAR HGB CONC 32.1 g/dL (33.2-36.2); MEAN CORPUSCULAR VOLUME 82.1 fL (81-97); MONOCYTES # (AUTO) 0.73 x10^3/uL (0.2-0.8); MONOCYTES % (AUTO) 8 % (2-9); NEUTROPHILS # (AUTO) 7.12 x10^3/uL (1.8-6.8); NEUTROPHILS % (AUTO) 79 % (42-75); PLATELET COUNT 284 x10^3/uL (130-400); RED BLOOD COUNT 4.17 x10^6/uL (4.38-5.82); RED CELL DISTRIBUTION WIDTH 16.9 % (9.4-14.8)
[2020-04-08 14:42] LABS: ALANINE AMINOTRANSFERASE 21 U/L (12-78); ALBUMIN 2.6 g/dL (3.4-5.0); ANION GAP 6 mmol/L (5-15); CALCIUM 9.6 mg/dL (8.5-10.1); CHLORIDE 105 mmol/L (98-107); CREATININE 1.92 mg/dL (0.7-1.3)
[2020-04-08 14:49] LABS: ALKALINE PHOSPHATASE 145 U/L (45-117); BILIRUBIN,TOTAL 0.3 mg/dL (0.2-1.0); TOTAL PROTEIN 7.4 g/dL (6.4-8.2)
[2020-04-08] MEDS: FERROUS SULFATE 325 MG TABLET PO SCH (16:22)
[2020-04-08] MEDS: LACTULOSE 20 GM/30 ML UDC PO PRN (18:09)
[2020-04-08 20:10] VITALS: BP 103/66
[2020-04-08] MEDS: TRAZODONE 100MG TABLET PO SCH (20:39)
[2020-04-09] MEDS: OXYcodone IR 5MG TABLET PO PRN ×4 (00:42→21:24)
[2020-04-09] MEDS: HEPARIN 5,000 UNITS/ML, 1ML SQ SCH ×3 (00:47→17:10)
[2020-04-09 02:16] VITALS: BP 96/65
[2020-04-09] MEDS: MEROPENEM 1 GM in SODIUM CHLORIDE 0.9% 100 ML IV SCH ×2 (05:11→16:37)
[2020-04-09 06:47] VITALS: BP 111/70
[2020-04-09] MEDS: SEVELAMER CARBONATE 800MG TAB PO SCH ×3 (07:48→16:37)
[2020-04-09] MEDS: DOCUSATE 100 MG CAPSULE PO SCH ×2 (08:02→21:21)
[2020-04-09] MEDS: MODAFINIL 100 MG TABLET PO SCH (08:02)
[2020-04-09] MEDS: BUPROPION 100 MG TABLET PO SCH ×2 (08:02→12:00)
[2020-04-09] MEDS: MAGNESIUM OXIDE 400 MG TABLET PO SCH (08:02)
[2020-04-09] MEDS: DULOXETINE 30 MG CAPSULE.DR PO SCH (08:02)
[2020-04-09] MEDS: FLUCONAZOLE 200 MG TABLET PO SCH (08:03)
[2020-04-09] MEDS: SODIUM CHLORIDE FLUSH 10ML SYR IVF SCH ×2 (08:03→21:21)
[2020-04-09] MEDS: PANTOPRAZOLE 40MG TABLET PO SCH (08:03)
[2020-04-09] MEDS: SENNA/DOCUSATE TABLET PO SCH (08:04)
[2020-04-09] MEDS: OXYBUTYNIN CHLORIDE 5 MG TABLET PO SCH ×3 (08:04→21:23)
[2020-04-09] MEDS: LACTOBACILLUS CHEW TABLET PO SCH ×3 (08:04→21:23)
[2020-04-09] MEDS: GABAPENTIN 300 MG CAPSULE PO SCH ×3 (08:04→21:22)
[2020-04-09] MEDS: SODIUM CHLORIDE 0.9% 1,000 ML IV SCH (10:30)
[2020-04-09] MEDS: DAPTOMYCIN 800 MG in SODIUM CHLORIDE 0.9% 100 ML IVPB SCH (12:14)
[2020-04-09 13:26] VITALS: BP 112/74
[2020-04-09] MEDS ORDERED: VISIPAQUE 270 MG/ML, 50ML BOTTLE ONE (14:00)
[2020-04-09] MEDS ORDERED: PROPOFOL 10 MG/ML, 20ML ONE (14:01)
[2020-04-09] MEDS ORDERED: SUCCINYLCHOLINE 20 MG/ML, 10ML ONE (14:01)
[2020-04-09] MEDS ORDERED: ROCURONIUM 10 MG/ML,10ML ONE (14:01)
[2020-04-09] MEDS ORDERED: GADOTERATE 10 MMOL/20 ML SYR ONE (15:13)
[2020-04-09] MEDS: HYDROmorphone 1 MG/ML, 1ML INJ IVPush PRN ×4 (15:43→22:48)
[2020-04-09] MEDS ORDERED: HYDROmorphone 2 MG/ML, 1ML ONE (15:52)
[2020-04-09] MEDS ORDERED: DIPHENHYDRAMINE 50 MG/ML, 1ML IVPush PRN ×2 (16:00)
[2020-04-09 19:52] VITALS: BP 117/87
[2020-04-09] MEDS: TRAZODONE 100MG TABLET PO SCH (21:21)
[2020-04-10] MEDS: MEROPENEM 1 GM in SODIUM CHLORIDE 0.9% 100 ML IV SCH ×3 (00:44→17:15)
[2020-04-10] MEDS: SODIUM CHLORIDE 0.9% 1,000 ML IV SCH ×2 (00:44→11:57)
[2020-04-10] MEDS: HEPARIN 5,000 UNITS/ML, 1ML SQ SCH ×3 (00:46→17:15)
[2020-04-10 04:56] VITALS: BP 105/73
[2020-04-10 08:00] VITALS: BP 103/71
[2020-04-10] MEDS: FENTANYL REMOVE PATCH NOTE XX SCH (08:30)
[2020-04-10] MEDS: MAGNESIUM OXIDE 400 MG TABLET PO SCH (08:31)
[2020-04-10] MEDS: MODAFINIL 100 MG TABLET PO SCH (08:32)
[2020-04-10] MEDS: GABAPENTIN 300 MG CAPSULE PO SCH ×4 (08:32→23:56)
[2020-04-10] MEDS: OXYBUTYNIN CHLORIDE 5 MG TABLET PO SCH ×3 (08:32→21:00)
[2020-04-10] MEDS: DULOXETINE 30 MG CAPSULE.DR PO SCH (08:32)
[2020-04-10] MEDS: PANTOPRAZOLE 40MG TABLET PO SCH (08:32)
[2020-04-10] MEDS: SENNA/DOCUSATE TABLET PO SCH (08:32)
[2020-04-10] MEDS: FLUCONAZOLE 200 MG TABLET PO SCH (08:33)
[2020-04-10] MEDS: SODIUM CHLORIDE FLUSH 10ML SYR IVF SCH ×2 (08:33→21:00)
[2020-04-10] MEDS: DOCUSATE 100 MG CAPSULE PO SCH ×2 (08:33→21:00)
[2020-04-10] MEDS: SEVELAMER CARBONATE 800MG TAB PO SCH ×3 (08:33→17:16)
[2020-04-10] MEDS: BUPROPION 100 MG TABLET PO SCH ×2 (08:33→11:53)
[2020-04-10] MEDS: LACTOBACILLUS CHEW TABLET PO SCH ×3 (09:00→21:00)
[2020-04-10] MEDS: OXYcodone IR 5MG TABLET PO PRN ×3 (09:10→23:56)
[2020-04-10] MEDS: FENTANYL 75 MCG PATCH TD SCH (10:00)
[2020-04-10] MEDS: HYDROmorphone 1 MG/ML, 1ML INJ IVPush PRN (11:52)
[2020-04-10] MEDS: DAPTOMYCIN 800 MG in SODIUM CHLORIDE 0.9% 100 ML IVPB SCH (11:53)
[2020-04-10 13:08] VITALS: BP 119/85
[2020-04-10] MEDS: HYDROmorphone 1 MG/ML, 1ML INJ IV PRN (14:10)
[2020-04-10] MEDS: FERROUS SULFATE 325 MG TABLET PO SCH (17:16)
[2020-04-10 20:08] VITALS: BP 116/67
[2020-04-10] MEDS: TRAZODONE 100MG TABLET PO SCH (21:00)
[2020-04-11] MEDS: HYDROmorphone 1 MG/ML, 1ML INJ IVPush PRN ×2 (01:36→17:00)
[2020-04-11] MEDS: MEROPENEM 1 GM in SODIUM CHLORIDE 0.9% 100 ML IV SCH ×3 (01:36→16:07)
[2020-04-11] MEDS: HEPARIN 5,000 UNITS/ML, 1ML SQ SCH ×3 (01:37→16:08)
[2020-04-11 01:38] VITALS: BP 112/67
[2020-04-11] MEDS: SODIUM CHLORIDE 0.9% 1,000 ML IV SCH ×2 (02:18→16:08)
[2020-04-11] MEDS: OXYcodone IR 5MG TABLET PO PRN ×3 (04:05→12:46)
[2020-04-11 07:38] VITALS: BP 117/76
[2020-04-11] MEDS: MAGNESIUM OXIDE 400 MG TABLET PO SCH (08:19)
[2020-04-11] MEDS: SEVELAMER CARBONATE 800MG TAB PO SCH ×3 (08:19→16:08)
[2020-04-11] MEDS: BUPROPION 100 MG TABLET PO SCH ×2 (08:19→11:47)
[2020-04-11] MEDS: MODAFINIL 100 MG TABLET PO SCH (08:19)
[2020-04-11] MEDS: FLUCONAZOLE 200 MG TABLET PO SCH (08:20)
[2020-04-11] MEDS: LACTOBACILLUS CHEW TABLET PO SCH ×3 (08:20→23:29)
[2020-04-11] MEDS: GABAPENTIN 300 MG CAPSULE PO SCH ×3 (08:20→23:29)
[2020-04-11] MEDS: PANTOPRAZOLE 40MG TABLET PO SCH (08:20)
[2020-04-11] MEDS: DULOXETINE 30 MG CAPSULE.DR PO SCH (08:20)
[2020-04-11] MEDS: SENNA/DOCUSATE TABLET PO SCH (08:21)
[2020-04-11] MEDS ORDERED: OXYBUTYNIN CHLORIDE 5 MG TABLET PO PRN (08:30)
[2020-04-11] MEDS: SODIUM CHLORIDE FLUSH 10ML SYR IVF SCH ×2 (08:50→23:29)
[2020-04-11] MEDS: DAPTOMYCIN 800 MG in SODIUM CHLORIDE 0.9% 100 ML IVPB SCH (11:47)
[2020-04-11 14:38] VITALS: BP 99/68
[2020-04-11 21:16] VITALS: BP 111/73
[2020-04-12] MEDS: MEROPENEM 1 GM in SODIUM CHLORIDE 0.9% 100 ML IV SCH ×3 (00:45→16:24)
[2020-04-12] MEDS: OXYcodone IR 5MG TABLET PO PRN ×4 (01:33→21:32)
[2020-04-12] MEDS: HEPARIN 5,000 UNITS/ML, 1ML SQ SCH ×3 (01:34→16:24)
[2020-04-12 03:55] VITALS: BP 97/68
[2020-04-12] MEDS: SODIUM CHLORIDE 0.9% 1,000 ML IV SCH ×2 (06:54→21:12)
[2020-04-12 07:04] VITALS: BP 111/76
[2020-04-12] MEDS: DULOXETINE 30 MG CAPSULE.DR PO SCH (08:04)
[2020-04-12] MEDS: SEVELAMER CARBONATE 800MG TAB PO SCH ×3 (08:04→16:25)
[2020-04-12] MEDS: MODAFINIL 100 MG TABLET PO SCH (08:04)
[2020-04-12] MEDS: GABAPENTIN 300 MG CAPSULE PO SCH ×3 (08:04→21:32)
[2020-04-12] MEDS: PANTOPRAZOLE 40MG TABLET PO SCH (08:05)
[2020-04-12] MEDS: LACTOBACILLUS CHEW TABLET PO SCH ×3 (08:05→21:32)
[2020-04-12] MEDS: MAGNESIUM OXIDE 400 MG TABLET PO SCH (08:05)
[2020-04-12] MEDS: SENNA/DOCUSATE TABLET PO SCH (08:05)
[2020-04-12] MEDS: BUPROPION 100 MG TABLET PO SCH ×2 (08:05→11:30)
[2020-04-12] MEDS: SODIUM CHLORIDE FLUSH 10ML SYR IVF SCH ×2 (08:06→21:32)
[2020-04-12] MEDS: HYDROmorphone 1 MG/ML, 1ML INJ IV PRN (10:13)
[2020-04-12] MEDS: DAPTOMYCIN 800 MG in SODIUM CHLORIDE 0.9% 100 ML IVPB SCH (11:29)
[2020-04-12 12:24] VITALS: BP 119/75
[2020-04-12] MEDS: FERROUS SULFATE 325 MG TABLET PO SCH (16:31)
[2020-04-12 19:04] VITALS: BP 124/82
[2020-04-13] MEDS: HEPARIN 5,000 UNITS/ML, 1ML SQ SCH ×3 (00:54→17:22)
[2020-04-13] MEDS: HYDROmorphone 1 MG/ML, 1ML INJ IVPush PRN ×3 (00:55→23:45)
[2020-04-13] MEDS: MEROPENEM 1 GM in SODIUM CHLORIDE 0.9% 100 ML IV SCH ×3 (01:01→16:43)
[2020-04-13 02:16] VITALS: BP 130/89
[2020-04-13 07:20] VITALS: BP 119/82
[2020-04-13] MEDS: FENTANYL REMOVE PATCH NOTE XX SCH (08:30)
[2020-04-13] MEDS: PANTOPRAZOLE 40MG TABLET PO SCH (09:42)
[2020-04-13] MEDS: SEVELAMER CARBONATE 800MG TAB PO SCH ×3 (09:42→17:08)
[2020-04-13] MEDS: FENTANYL 75 MCG PATCH TD SCH (09:43)
[2020-04-13] MEDS: BUPROPION 100 MG TABLET PO SCH ×2 (09:43→12:16)
[2020-04-13] MEDS: SENNA/DOCUSATE TABLET PO SCH (09:44)
[2020-04-13] MEDS: MAGNESIUM OXIDE 400 MG TABLET PO SCH (09:44)
[2020-04-13] MEDS: GABAPENTIN 300 MG CAPSULE PO SCH ×3 (09:44→19:53)
[2020-04-13] MEDS: DULOXETINE 30 MG CAPSULE.DR PO SCH (09:44)
[2020-04-13] MEDS: MODAFINIL 100 MG TABLET PO SCH (09:44)
[2020-04-13] MEDS: SODIUM CHLORIDE FLUSH 10ML SYR IVF SCH ×2 (09:44→19:53)
[2020-04-13] MEDS: LACTOBACILLUS CHEW TABLET PO SCH ×3 (09:44→19:52)
[2020-04-13] MEDS: OXYcodone IR 5MG TABLET PO PRN ×3 (09:45→19:53)
[2020-04-13] MEDS: LACTULOSE 20 GM/30 ML UDC PO PRN (09:45)
[2020-04-13] MEDS: SODIUM CHLORIDE 0.9% 1,000 ML IV SCH (11:30)
[2020-04-13] MEDS: DAPTOMYCIN 800 MG in SODIUM CHLORIDE 0.9% 100 ML IVPB SCH (12:16)
[2020-04-13 12:59] VITALS: BP 112/76
[2020-04-13] MEDS: HYDROmorphone 1 MG/ML, 1ML INJ IV PRN (13:56)
[2020-04-13 19:46] VITALS: BP 123/84
[2020-04-14] MEDS: MEROPENEM 1 GM in SODIUM CHLORIDE 0.9% 100 ML IV SCH ×3 (00:20→17:05)
[2020-04-14] MEDS: OXYcodone IR 5MG TABLET PO PRN ×4 (00:45→22:11)
[2020-04-14 00:51] VITALS: BP 110/68
[2020-04-14] MEDS: HEPARIN 5,000 UNITS/ML, 1ML SQ SCH ×3 (01:22→17:05)
[2020-04-14] MEDS: SODIUM CHLORIDE 0.9% 1,000 ML IV SCH ×2 (01:48→16:06)
[2020-04-14 05:32] LABS: ANION GAP 5 mmol/L (5-15); CALCIUM 9.4 mg/dL (8.5-10.1); CHLORIDE 107 mmol/L (98-107); CREATININE 1.57 mg/dL (0.7-1.3)
[2020-04-14] MEDS: DULOXETINE 30 MG CAPSULE.DR PO SCH (09:05)
[2020-04-14] MEDS: GABAPENTIN 300 MG CAPSULE PO SCH ×3 (09:05→20:58)
[2020-04-14] MEDS: PANTOPRAZOLE 40MG TABLET PO SCH (09:05)
[2020-04-14] MEDS: MAGNESIUM OXIDE 400 MG TABLET PO SCH (09:05)
[2020-04-14] MEDS: SENNA/DOCUSATE TABLET PO SCH (09:05)
[2020-04-14] MEDS: MODAFINIL 100 MG TABLET PO SCH (09:05)
[2020-04-14] MEDS: BUPROPION 100 MG TABLET PO SCH ×2 (09:05→12:37)
[2020-04-14] MEDS: SEVELAMER CARBONATE 800MG TAB PO SCH ×3 (09:06→17:05)
[2020-04-14] MEDS: LACTOBACILLUS CHEW TABLET PO SCH ×3 (09:07→20:58)
[2020-04-14] MEDS: SODIUM CHLORIDE FLUSH 10ML SYR IVF SCH ×2 (09:07→20:59)
[2020-04-14 11:01] VITALS: BP 119/81
[2020-04-14] MEDS: DAPTOMYCIN 800 MG in SODIUM CHLORIDE 0.9% 100 ML IVPB SCH (12:37)
[2020-04-14] MEDS: HYDROmorphone 1 MG/ML, 1ML INJ IVPush PRN (12:37)
[2020-04-14 13:25] VITALS: BP 132/82
[2020-04-14] MEDS: FERROUS SULFATE 325 MG TABLET PO SCH (17:05)
[2020-04-14 18:34] VITALS: BP 116/71
[2020-04-15] MEDS: HYDROmorphone 1 MG/ML, 1ML INJ IVPush PRN ×3 (00:07→23:18)
[2020-04-15] MEDS: MEROPENEM 1 GM in SODIUM CHLORIDE 0.9% 100 ML IV SCH ×3 (00:48→16:40)
[2020-04-15] MEDS: HEPARIN 5,000 UNITS/ML, 1ML SQ SCH ×3 (00:48→17:54)
[2020-04-15 01:16] VITALS: BP 117/67
[2020-04-15] MEDS: SODIUM CHLORIDE 0.9% 1,000 ML IV SCH ×2 (04:44→19:51)
[2020-04-15] MEDS: OXYcodone IR 5MG TABLET PO PRN ×3 (05:33→21:32)
[2020-04-15 05:45] LABS: BASOPHILS # (AUTO) 0.04 x10^3/uL (0-0.1); BASOPHILS % (AUTO) 0 % (0-1); EOSINOPHILS # (AUTO) 0.32 x10^3/uL (0-0.4); EOSINOPHILS % (AUTO) 4 % (1-7); LYMPHOCYTES # (AUTO) 1.88 x10^3/uL (1-3.4); LYMPHOCYTES % (AUTO) 21 % (22-44); MD NO; MEAN CORPUSCULAR VOLUME 81.2 fL (81-97); MEAN PLATELET VOLUME 7.7 fL (7.4-10.4); MONOCYTES # (AUTO) 0.63 x10^3/uL (0.2-0.8); MONOCYTES % (AUTO) 7 % (2-9); NEUTROPHILS # (AUTO) 6.13 x10^3/uL (1.8-6.8); NEUTROPHILS % (AUTO) 68 % (42-75); PLATELET COUNT 321 x10^3/uL (130-400); RED BLOOD COUNT 4.18 x10^6/uL (4.38-5.82); RED CELL DISTRIBUTION WIDTH 16.9 % (9.4-14.8)
[2020-04-15 05:49] LABS: ALBUMIN 2.5 g/dL (3.4-5.0); ANION GAP 6 mmol/L (5-15); CALCIUM 9.6 mg/dL (8.5-10.1); CHLORIDE 107 mmol/L (98-107)
[2020-04-15 06:01] LABS: ALANINE AMINOTRANSFERASE 17 U/L (12-78); ALKALINE PHOSPHATASE 110 U/L (45-117); BILIRUBIN,TOTAL 0.4 mg/dL (0.2-1.0); CREATINE KINASE, TOTAL 89 U/L (39-308); CREATININE 1.55 mg/dL (0.7-1.3); TOTAL PROTEIN 7.2 g/dL (6.4-8.2)
[2020-04-15 06:35] VITALS: BP 115/69
[2020-04-15] MEDS: BUPROPION 100 MG TABLET PO SCH ×2 (09:39→12:06)
[2020-04-15] MEDS: DULOXETINE 30 MG CAPSULE.DR PO SCH (09:39)
[2020-04-15] MEDS: GABAPENTIN 300 MG CAPSULE PO SCH ×3 (09:40→21:01)
[2020-04-15] MEDS: PANTOPRAZOLE 40MG TABLET PO SCH (09:40)
[2020-04-15] MEDS: SENNA/DOCUSATE TABLET PO SCH (09:40)
[2020-04-15] MEDS: LACTOBACILLUS CHEW TABLET PO SCH ×3 (09:40→21:01)
[2020-04-15] MEDS: MODAFINIL 100 MG TABLET PO SCH (09:40)
[2020-04-15] MEDS: SEVELAMER CARBONATE 800MG TAB PO SCH ×3 (09:40→16:40)
[2020-04-15] MEDS: MAGNESIUM OXIDE 400 MG TABLET PO SCH (09:40)
[2020-04-15] MEDS: SODIUM CHLORIDE FLUSH 10ML SYR IVF SCH ×2 (09:41→21:02)
[2020-04-15] MEDS: DAPTOMYCIN 800 MG in SODIUM CHLORIDE 0.9% 100 ML IVPB SCH (12:44)
[2020-04-15 13:21] VITALS: BP 109/72
[2020-04-15] MEDS: LACTULOSE 20 GM/30 ML UDC PO PRN (14:25)
[2020-04-15 18:59] VITALS: BP 116/78
[2020-04-16] MEDS: MEROPENEM 1 GM in SODIUM CHLORIDE 0.9% 100 ML IV SCH ×3 (00:23→16:48)
[2020-04-16 01:38] VITALS: BP 119/84
[2020-04-16] MEDS: HEPARIN 5,000 UNITS/ML, 1ML SQ SCH ×3 (02:21→17:15)
[2020-04-16] MEDS: OXYcodone IR 5MG TABLET PO PRN ×4 (02:22→21:50)
[2020-04-16 08:14] VITALS: BP 117/71
[2020-04-16] MEDS: FENTANYL REMOVE PATCH NOTE XX SCH (08:30)
[2020-04-16] MEDS: BUPROPION 100 MG TABLET PO SCH ×2 (09:08→11:56)
[2020-04-16] MEDS: SENNA/DOCUSATE TABLET PO SCH (09:08)
[2020-04-16] MEDS: SEVELAMER CARBONATE 800MG TAB PO SCH ×3 (09:08→16:48)
[2020-04-16] MEDS: LACTOBACILLUS CHEW TABLET PO SCH ×3 (09:09→21:49)
[2020-04-16] MEDS: GABAPENTIN 300 MG CAPSULE PO SCH ×3 (09:10→21:49)
[2020-04-16] MEDS: MAGNESIUM OXIDE 400 MG TABLET PO SCH (09:10)
[2020-04-16] MEDS: DULOXETINE 30 MG CAPSULE.DR PO SCH (09:10)
[2020-04-16] MEDS: PANTOPRAZOLE 40MG TABLET PO SCH (09:10)
[2020-04-16] MEDS: MODAFINIL 100 MG TABLET PO SCH (09:10)
[2020-04-16] MEDS: SODIUM CHLORIDE FLUSH 10ML SYR IVF SCH ×2 (09:11→21:50)
[2020-04-16] MEDS: FENTANYL 75 MCG PATCH TD SCH (09:11)
[2020-04-16] MEDS: SODIUM CHLORIDE 0.9% 1,000 ML IV SCH (11:00)
[2020-04-16 12:28] VITALS: BP 114/78
[2020-04-16] MEDS: DAPTOMYCIN 800 MG in SODIUM CHLORIDE 0.9% 100 ML IVPB SCH (12:38)
[2020-04-16] MEDS: HYDROmorphone 1 MG/ML, 1ML INJ IVPush PRN ×2 (12:38→15:49)
[2020-04-16] MEDS: LACTULOSE 20 GM/30 ML UDC PO PRN (14:36)
[2020-04-16] MEDS: FERROUS SULFATE 325 MG TABLET PO SCH (16:50)
[2020-04-16] MEDS: HYDROmorphone 1 MG/ML, 1ML INJ IV PRN (20:07)
[2020-04-16 20:29] VITALS: BP 136/85
[2020-04-16] MEDS ORDERED: CATHFLO-ALTEPLASE 2 MG/2 ML CATHFLUSH ONE (23:30)
[2020-04-17] MEDS: MEROPENEM 1 GM in SODIUM CHLORIDE 0.9% 100 ML IV SCH ×3 (01:01→17:28)
[2020-04-17 01:18] VITALS: BP 112/72
[2020-04-17] MEDS: SODIUM CHLORIDE 0.9% 1,000 ML IV SCH ×2 (01:18→15:36)
[2020-04-17] MEDS: HYDROmorphone 1 MG/ML, 1ML INJ IVPush PRN ×2 (02:23→11:51)
[2020-04-17] MEDS: HEPARIN 5,000 UNITS/ML, 1ML SQ SCH ×3 (02:23→17:28)
[2020-04-17 06:30] VITALS: BP 116/74
[2020-04-17] MEDS: SODIUM CHLORIDE FLUSH 10ML SYR IVF SCH ×2 (08:15→21:00)
[2020-04-17] MEDS: LACTULOSE 20 GM/30 ML UDC PO PRN (08:17)
[2020-04-17] MEDS: SEVELAMER CARBONATE 800MG TAB PO SCH ×3 (08:18→17:28)
[2020-04-17] MEDS: SENNA/DOCUSATE TABLET PO SCH (08:19)
[2020-04-17] MEDS: LACTOBACILLUS CHEW TABLET PO SCH ×3 (08:19→21:32)
[2020-04-17] MEDS: GABAPENTIN 300 MG CAPSULE PO SCH ×3 (08:19→21:33)
[2020-04-17] MEDS: MAGNESIUM OXIDE 400 MG TABLET PO SCH (08:20)
[2020-04-17] MEDS: OXYcodone IR 5MG TABLET PO PRN ×3 (08:21→21:32)
[2020-04-17] MEDS: MODAFINIL 100 MG TABLET PO SCH (08:21)
[2020-04-17] MEDS: BUPROPION 100 MG TABLET PO SCH ×2 (08:21→12:58)
[2020-04-17] MEDS: DULOXETINE 30 MG CAPSULE.DR PO SCH (08:22)
[2020-04-17] MEDS: PANTOPRAZOLE 40MG TABLET PO SCH (08:22)
[2020-04-17] MEDS: DAPTOMYCIN 800 MG in SODIUM CHLORIDE 0.9% 100 ML IVPB SCH (12:58)
[2020-04-17] MEDS: HYDROmorphone 1 MG/ML, 1ML INJ IV PRN ×2 (13:54→18:30)
[2020-04-17 14:00] VITALS: BP 130/86
[2020-04-17 19:02] VITALS: BP 123/85
[2020-04-17] MEDS: ACETAMINOPHEN 325 MG TABLET PO PRN (21:32)
[2020-04-18] MEDS: HYDROmorphone 1 MG/ML, 1ML INJ IVPush PRN ×2 (00:24→11:11)
[2020-04-18] MEDS: MEROPENEM 1 GM in SODIUM CHLORIDE 0.9% 100 ML IV SCH ×3 (01:09→16:57)
[2020-04-18] MEDS: HEPARIN 5,000 UNITS/ML, 1ML SQ SCH ×3 (01:09→16:59)
[2020-04-18 01:35] LABS: BASOPHILS # (AUTO) 0.09 x10^3/uL (0-0.1); BASOPHILS % (AUTO) 1 % (0-1); EOSINOPHILS # (AUTO) 0.44 x10^3/uL (0-0.4); EOSINOPHILS % (AUTO) 4 % (1-7); LYMPHOCYTES # (AUTO) 2.38 x10^3/uL (1-3.4); LYMPHOCYTES % (AUTO) 21 % (22-44); MD NO; MEAN CORPUSCULAR HEMOGLOBIN 26.7 pg (27.5-34.5); MEAN CORPUSCULAR HGB CONC 32.7 g/dL (33.2-36.2); MEAN CORPUSCULAR VOLUME 81.4 fL (81-97); MEAN PLATELET VOLUME 7.8 fL (7.4-10.4); MONOCYTES # (AUTO) 0.79 x10^3/uL (0.2-0.8); MONOCYTES % (AUTO) 7 % (2-9); NEUTROPHILS # (AUTO) 7.61 x10^3/uL (1.8-6.8); NEUTROPHILS % (AUTO) 67 % (42-75); PLATELET COUNT 335 x10^3/uL (130-400); RED BLOOD COUNT 4.46 x10^6/uL (4.38-5.82); RED CELL DISTRIBUTION WIDTH 17.1 % (9.4-14.8)
[2020-04-18 01:42] LABS: ANION GAP 8 mmol/L (5-15); CALCIUM 9.5 mg/dL (8.5-10.1); CHLORIDE 106 mmol/L (98-107); CREATININE 1.64 mg/dL (0.7-1.3)
[2020-04-18 02:00] VITALS: BP 115/80
[2020-04-18] MEDS: OXYcodone IR 5MG TABLET PO PRN ×4 (02:06→20:43)
[2020-04-18] MEDS: SODIUM CHLORIDE 0.9% 1,000 ML IV SCH ×2 (02:53→20:12)
[2020-04-18 07:27] VITALS: BP 118/82
[2020-04-18] MEDS: PANTOPRAZOLE 40MG TABLET PO SCH (08:55)
[2020-04-18] MEDS: GABAPENTIN 300 MG CAPSULE PO SCH ×3 (08:55→20:44)
[2020-04-18] MEDS: LACTOBACILLUS CHEW TABLET PO SCH ×3 (08:56→20:43)
[2020-04-18] MEDS: MODAFINIL 100 MG TABLET PO SCH (08:56)
[2020-04-18] MEDS: BUPROPION 100 MG TABLET PO SCH ×2 (08:56→12:09)
[2020-04-18] MEDS: MAGNESIUM OXIDE 400 MG TABLET PO SCH (08:57)
[2020-04-18] MEDS: DULOXETINE 30 MG CAPSULE.DR PO SCH (08:57)
[2020-04-18] MEDS: SENNA/DOCUSATE TABLET PO SCH (08:57)
[2020-04-18] MEDS: SEVELAMER CARBONATE 800MG TAB PO SCH ×3 (08:59→16:57)
[2020-04-18] MEDS: SODIUM CHLORIDE FLUSH 10ML SYR IVF SCH ×2 (09:03→21:00)
[2020-04-18] MEDS: DAPTOMYCIN 800 MG in SODIUM CHLORIDE 0.9% 100 ML IVPB SCH (11:55)
[2020-04-18 13:43] VITALS: BP 115/83
[2020-04-18 16:51] VITALS: BP 115/73
[2020-04-18] MEDS: FERROUS SULFATE 325 MG TABLET PO SCH (16:56)
[2020-04-18 20:00] VITALS: BP 118/77
[2020-04-19] MEDS: HYDROmorphone 1 MG/ML, 1ML INJ IVPush PRN ×2 (00:45→23:58)
[2020-04-19] MEDS: MEROPENEM 1 GM in SODIUM CHLORIDE 0.9% 100 ML IV SCH ×3 (00:45→17:19)
[2020-04-19 01:06] LABS: ANION GAP 7 mmol/L (5-15); BASOPHILS # (AUTO) 0.07 x10^3/uL (0-0.1); BASOPHILS % (AUTO) 1 % (0-1); CALCIUM 9.8 mg/dL (8.5-10.1); CHLORIDE 106 mmol/L (98-107); CREATININE 1.71 mg/dL (0.7-1.3); EOSINOPHILS # (AUTO) 0.41 x10^3/uL (0-0.4); EOSINOPHILS % (AUTO) 4 % (1-7); LYMPHOCYTES # (AUTO) 2.08 x10^3/uL (1-3.4); LYMPHOCYTES % (AUTO) 19 % (22-44); MD NO; MEAN CORPUSCULAR HEMOGLOBIN 26.2 pg (27.5-34.5); MEAN CORPUSCULAR HGB CONC 32.4 g/dL (33.2-36.2); MEAN CORPUSCULAR VOLUME 80.9 fL (81-97); MEAN PLATELET VOLUME 7.9 fL (7.4-10.4); MONOCYTES # (AUTO) 0.88 x10^3/uL (0.2-0.8); MONOCYTES % (AUTO) 8 % (2-9); NEUTROPHILS # (AUTO) 7.57 x10^3/uL (1.8-6.8); NEUTROPHILS % (AUTO) 69 % (42-75); PLATELET COUNT 329 x10^3/uL (130-400); RED BLOOD COUNT 4.53 x10^6/uL (4.38-5.82); RED CELL DISTRIBUTION WIDTH 17.5 % (9.4-14.8)
[2020-04-19] MEDS: OXYcodone IR 5MG TABLET PO PRN (01:13)
[2020-04-19] MEDS: HEPARIN 5,000 UNITS/ML, 1ML SQ SCH ×3 (01:30→17:20)
[2020-04-19 01:39] VITALS: BP 113/72
[2020-04-19] MEDS: FENTANYL REMOVE PATCH NOTE XX SCH (07:21)
[2020-04-19 07:56] VITALS: BP 113/78
[2020-04-19] MEDS: BUPROPION 100 MG TABLET PO SCH ×2 (08:30→12:33)
[2020-04-19] MEDS: MAGNESIUM OXIDE 400 MG TABLET PO SCH (08:31)
[2020-04-19] MEDS: PANTOPRAZOLE 40MG TABLET PO SCH (08:31)
[2020-04-19] MEDS: LACTOBACILLUS CHEW TABLET PO SCH ×3 (08:31→22:19)
[2020-04-19] MEDS: GABAPENTIN 300 MG CAPSULE PO SCH ×3 (08:31→22:19)
[2020-04-19] MEDS: DULOXETINE 30 MG CAPSULE.DR PO SCH (08:31)
[2020-04-19] MEDS: SEVELAMER CARBONATE 800MG TAB PO SCH ×3 (08:31→17:20)
[2020-04-19] MEDS: MODAFINIL 100 MG TABLET PO SCH (08:31)
[2020-04-19] MEDS: SENNA/DOCUSATE TABLET PO SCH (08:31)
[2020-04-19] MEDS: SODIUM CHLORIDE FLUSH 10ML SYR IVF SCH ×2 (08:32→22:19)
[2020-04-19] MEDS: HYDROmorphone 1 MG/ML, 1ML INJ IV PRN ×3 (08:33→17:20)
[2020-04-19] MEDS: FENTANYL 75 MCG PATCH TD SCH (09:50)
[2020-04-19] MEDS: DAPTOMYCIN 800 MG in SODIUM CHLORIDE 0.9% 100 ML IVPB SCH (13:20)
[2020-04-19 14:13] VITALS: BP 123/85
[2020-04-19] MEDS: SODIUM CHLORIDE 0.9% 1,000 ML IV SCH (19:44)
[2020-04-19 20:32] VITALS: BP 118/80
[2020-04-20] MEDS: MEROPENEM 1 GM in SODIUM CHLORIDE 0.9% 100 ML IV SCH ×3 (00:28→16:55)
[2020-04-20] MEDS: HEPARIN 5,000 UNITS/ML, 1ML SQ SCH ×3 (00:47→18:03)
[2020-04-20] MEDS: OXYcodone IR 5MG TABLET PO PRN ×3 (00:48→19:21)
[2020-04-20 01:03] VITALS: BP 119/79
[2020-04-20 04:54] LABS: BASOPHILS # (AUTO) 0.07 x10^3/uL (0-0.1); BASOPHILS % (AUTO) 1 % (0-1); EOSINOPHILS # (AUTO) 0.35 x10^3/uL (0-0.4); EOSINOPHILS % (AUTO) 3 % (1-7); LYMPHOCYTES # (AUTO) 1.96 x10^3/uL (1-3.4); LYMPHOCYTES % (AUTO) 18 % (22-44); MD NO; MEAN CORPUSCULAR HEMOGLOBIN 26.9 pg (27.5-34.5); MEAN CORPUSCULAR HGB CONC 32.5 g/dL (33.2-36.2); MEAN PLATELET VOLUME 7.6 fL (7.4-10.4); MONOCYTES # (AUTO) 0.78 x10^3/uL (0.2-0.8); MONOCYTES % (AUTO) 7 % (2-9); NEUTROPHILS # (AUTO) 7.86 x10^3/uL (1.8-6.8); NEUTROPHILS % (AUTO) 71 % (42-75); PLATELET COUNT 300 x10^3/uL (130-400); RED BLOOD COUNT 4.36 x10^6/uL (4.38-5.82); RED CELL DISTRIBUTION WIDTH 17.6 % (9.4-14.8)
[2020-04-20 05:06] LABS: ANION GAP 5 mmol/L (5-15); CALCIUM 9.5 mg/dL (8.5-10.1); CHLORIDE 109 mmol/L (98-107)
[2020-04-20 05:07] LABS: CREATININE 1.68 mg/dL (0.7-1.3)
[2020-04-20] MEDS: LACTOBACILLUS CHEW TABLET PO SCH ×3 (10:07→21:22)
[2020-04-20] MEDS: SENNA/DOCUSATE TABLET PO SCH (10:07)
[2020-04-20] MEDS: BUPROPION 100 MG TABLET PO SCH ×2 (10:08→13:00)
[2020-04-20] MEDS: PANTOPRAZOLE 40MG TABLET PO SCH (10:09)
[2020-04-20] MEDS: MAGNESIUM OXIDE 400 MG TABLET PO SCH (10:09)
[2020-04-20] MEDS: SEVELAMER CARBONATE 800MG TAB PO SCH ×3 (10:09→16:54)
[2020-04-20] MEDS: MODAFINIL 100 MG TABLET PO SCH (10:09)
[2020-04-20] MEDS: DULOXETINE 30 MG CAPSULE.DR PO SCH (10:09)
[2020-04-20] MEDS: GABAPENTIN 300 MG CAPSULE PO SCH ×3 (10:09→21:22)
[2020-04-20] MEDS: SODIUM CHLORIDE FLUSH 10ML SYR IVF SCH ×2 (10:10→21:22)
[2020-04-20] MEDS: SODIUM CHLORIDE 0.9% 1,000 ML IV SCH (10:12)
[2020-04-20 10:15] VITALS: BP 141/86
[2020-04-20 12:48] VITALS: BP 139/94
[2020-04-20] MEDS: HYDROmorphone 1 MG/ML, 1ML INJ IVPush PRN (13:21)
[2020-04-20] MEDS: DAPTOMYCIN 800 MG in SODIUM CHLORIDE 0.9% 100 ML IVPB SCH (13:54)
[2020-04-20] MEDS: HYDROmorphone 1 MG/ML, 1ML INJ IV PRN ×3 (14:00→18:00)
[2020-04-20] MEDS: FERROUS SULFATE 325 MG TABLET PO SCH (16:54)
[2020-04-20 18:24] VITALS: BP 114/84
[2020-04-21] MEDS: HYDROmorphone 1 MG/ML, 1ML INJ IVPush PRN ×2 (00:21→11:28)
[2020-04-21] MEDS: MEROPENEM 1 GM in SODIUM CHLORIDE 0.9% 100 ML IV SCH ×3 (00:21→16:39)
[2020-04-21] MEDS: SODIUM CHLORIDE 0.9% 1,000 ML IV SCH ×2 (00:36→12:50)
[2020-04-21 00:41] VITALS: BP 123/85
[2020-04-21] MEDS: HEPARIN 5,000 UNITS/ML, 1ML SQ SCH ×3 (01:10→16:43)
[2020-04-21] MEDS: OXYcodone IR 5MG TABLET PO PRN ×3 (01:10→19:43)
[2020-04-21] MEDS: MAGNESIUM OXIDE 400 MG TABLET PO SCH (08:16)
[2020-04-21] MEDS: DULOXETINE 30 MG CAPSULE.DR PO SCH (08:16)
[2020-04-21] MEDS: SENNA/DOCUSATE TABLET PO SCH (08:16)
[2020-04-21] MEDS: GABAPENTIN 300 MG CAPSULE PO SCH ×3 (08:16→19:43)
[2020-04-21] MEDS: BUPROPION 100 MG TABLET PO SCH ×2 (08:17→11:28)
[2020-04-21] MEDS: SEVELAMER CARBONATE 800MG TAB PO SCH ×3 (08:17→16:43)
[2020-04-21] MEDS: PANTOPRAZOLE 40MG TABLET PO SCH (08:17)
[2020-04-21] MEDS: LACTOBACILLUS CHEW TABLET PO SCH ×3 (08:18→19:43)
[2020-04-21] MEDS: MODAFINIL 100 MG TABLET PO SCH (08:18)
[2020-04-21] MEDS: SODIUM CHLORIDE FLUSH 10ML SYR IVF SCH (08:18)
[2020-04-21 08:47] VITALS: BP 123/82
[2020-04-21] MEDS: DAPTOMYCIN 800 MG in SODIUM CHLORIDE 0.9% 100 ML IVPB SCH (12:49)
[2020-04-21 13:01] VITALS: BP 134/83
[2020-04-21] MEDS: LACTULOSE 20 GM/30 ML UDC PO PRN (16:43)
[2020-04-21 19:47] VITALS: BP 135/72
[2020-04-22] MEDS: HEPARIN 5,000 UNITS/ML, 1ML SQ SCH ×3 (01:15→16:22)
[2020-04-22] MEDS: MEROPENEM 1 GM in SODIUM CHLORIDE 0.9% 100 ML IV SCH ×3 (01:15→16:21)
[2020-04-22] MEDS: HYDROmorphone 1 MG/ML, 1ML INJ IVPush PRN ×2 (01:16→14:40)
[2020-04-22] MEDS: SODIUM CHLORIDE FLUSH 10ML SYR IVF SCH ×3 (01:16→20:39)
[2020-04-22 02:00] VITALS: BP 155/89
[2020-04-22] MEDS: SODIUM CHLORIDE 0.9% 1,000 ML IV SCH ×2 (05:12→16:41)
[2020-04-22 05:47] LABS: BASOPHILS # (AUTO) 0.05 x10^3/uL (0-0.1); BASOPHILS % (AUTO) 1 % (0-1); EOSINOPHILS # (AUTO) 0.38 x10^3/uL (0-0.4); EOSINOPHILS % (AUTO) 4 % (1-7); LYMPHOCYTES # (AUTO) 2.01 x10^3/uL (1-3.4); LYMPHOCYTES % (AUTO) 22 % (22-44); MD NO; MEAN CORPUSCULAR HEMOGLOBIN 26.2 pg (27.5-34.5); MEAN CORPUSCULAR HGB CONC 32.1 g/dL (33.2-36.2); MEAN CORPUSCULAR VOLUME 81.7 fL (81-97); MEAN PLATELET VOLUME 8.2 fL (7.4-10.4); MONOCYTES # (AUTO) 0.74 x10^3/uL (0.2-0.8); MONOCYTES % (AUTO) 8 % (2-9); NEUTROPHILS # (AUTO) 5.93 x10^3/uL (1.8-6.8); NEUTROPHILS % (AUTO) 65 % (42-75); PLATELET COUNT 284 x10^3/uL (130-400); RED BLOOD COUNT 4.34 x10^6/uL (4.38-5.82); RED CELL DISTRIBUTION WIDTH 17.8 % (9.4-14.8)
[2020-04-22 06:00] LABS: ALBUMIN 2.7 g/dL (3.4-5.0); ANION GAP 6 mmol/L (5-15); CALCIUM 9.8 mg/dL (8.5-10.1); CHLORIDE 108 mmol/L (98-107)
[2020-04-22 06:11] LABS: ALANINE AMINOTRANSFERASE 33 U/L (12-78); ALKALINE PHOSPHATASE 117 U/L (45-117); BILIRUBIN,TOTAL 0.4 mg/dL (0.2-1.0); CREATININE 1.52 mg/dL (0.7-1.3); TOTAL PROTEIN 7.5 g/dL (6.4-8.2)
[2020-04-22 06:41] LABS: HCT (SEDRATE) 35.5 % (39.2-51.8)
[2020-04-22] MEDS ORDERED: GABAPENTIN 300 MG CAPSULE ONE (07:36)
[2020-04-22] MEDS: BUPROPION 100 MG TABLET PO SCH ×2 (07:45→12:06)
[2020-04-22] MEDS: SEVELAMER CARBONATE 800MG TAB PO SCH ×3 (07:45→16:22)
[2020-04-22] MEDS: SENNA/DOCUSATE TABLET PO SCH (07:46)
[2020-04-22] MEDS: MODAFINIL 100 MG TABLET PO SCH (07:46)
[2020-04-22] MEDS: PANTOPRAZOLE 40MG TABLET PO SCH (07:46)
[2020-04-22] MEDS: LACTOBACILLUS CHEW TABLET PO SCH ×3 (07:46→20:38)
[2020-04-22] MEDS: GABAPENTIN 300 MG CAPSULE PO SCH ×3 (07:46→20:38)
[2020-04-22] MEDS: DULOXETINE 30 MG CAPSULE.DR PO SCH (07:46)
[2020-04-22] MEDS: FENTANYL 75 MCG PATCH TD SCH (07:46)
[2020-04-22] MEDS: MAGNESIUM OXIDE 400 MG TABLET PO SCH (07:47)
[2020-04-22] MEDS: FENTANYL REMOVE PATCH NOTE XX SCH (07:55)
[2020-04-22] MEDS: OXYcodone IR 5MG TABLET PO PRN ×3 (08:00→20:38)
[2020-04-22 09:55] VITALS: BP 127/84
[2020-04-22] MEDS: DAPTOMYCIN 800 MG in SODIUM CHLORIDE 0.9% 100 ML IVPB SCH (12:08)
[2020-04-22 13:53] VITALS: BP 141/77
[2020-04-22] MEDS: FERROUS SULFATE 325 MG TABLET PO SCH (16:22)
[2020-04-22 18:48] VITALS: BP 112/70
[2020-04-23] MEDS: HYDROmorphone 1 MG/ML, 1ML INJ IVPush PRN ×2 (00:29→11:22)
[2020-04-23] MEDS: MEROPENEM 1 GM in SODIUM CHLORIDE 0.9% 100 ML IV SCH ×3 (01:10→15:18)
[2020-04-23] MEDS: HEPARIN 5,000 UNITS/ML, 1ML SQ SCH ×3 (01:10→15:18)
[2020-04-23 01:30] VITALS: BP 119/81
[2020-04-23] MEDS: OXYcodone IR 5MG TABLET PO PRN ×4 (02:27→21:13)
[2020-04-23] MEDS: MODAFINIL 100 MG TABLET PO SCH (07:33)
[2020-04-23] MEDS: LACTOBACILLUS CHEW TABLET PO SCH ×3 (07:33→21:12)
[2020-04-23] MEDS: SENNA/DOCUSATE TABLET PO SCH (07:33)
[2020-04-23] MEDS: BUPROPION 100 MG TABLET PO SCH ×2 (07:33→11:22)
[2020-04-23] MEDS: DULOXETINE 30 MG CAPSULE.DR PO SCH (07:33)
[2020-04-23] MEDS: GABAPENTIN 300 MG CAPSULE PO SCH ×3 (07:34→21:13)
[2020-04-23] MEDS: MAGNESIUM OXIDE 400 MG TABLET PO SCH (07:34)
[2020-04-23] MEDS: PANTOPRAZOLE 40MG TABLET PO SCH (07:34)
[2020-04-23] MEDS: SEVELAMER CARBONATE 800MG TAB PO SCH ×3 (07:34→16:35)
[2020-04-23] MEDS: SODIUM CHLORIDE 0.9% 1,000 ML IV SCH ×2 (07:35→21:13)
[2020-04-23] MEDS: SODIUM CHLORIDE FLUSH 10ML SYR IVF SCH ×2 (07:35→21:12)
[2020-04-23 08:39] VITALS: BP 131/87
[2020-04-23] MEDS: DAPTOMYCIN 800 MG in SODIUM CHLORIDE 0.9% 100 ML IVPB SCH (12:00)
[2020-04-23 15:09] VITALS: BP 140/87
[2020-04-23] MEDS: HYDROmorphone 1 MG/ML, 1ML INJ IV PRN (16:35)
[2020-04-23 18:13] VITALS: BP 114/80
[2020-04-24] MEDS: OXYcodone IR 5MG TABLET PO PRN ×2 (01:01→19:15)
[2020-04-24] MEDS: HEPARIN 5,000 UNITS/ML, 1ML SQ SCH ×3 (01:01→16:49)
[2020-04-24] MEDS: MEROPENEM 1 GM in SODIUM CHLORIDE 0.9% 100 ML IV SCH ×3 (01:02→16:46)
[2020-04-24] MEDS: HYDROmorphone 1 MG/ML, 1ML INJ IVPush PRN ×2 (01:02→10:08)
[2020-04-24 02:11] VITALS: BP 114/80
[2020-04-24 07:27] VITALS: BP 118/82
[2020-04-24] MEDS: SODIUM CHLORIDE FLUSH 10ML SYR IVF SCH ×2 (09:31→20:34)
[2020-04-24] MEDS: MAGNESIUM OXIDE 400 MG TABLET PO SCH (09:32)
[2020-04-24] MEDS: SENNA/DOCUSATE TABLET PO SCH (09:32)
[2020-04-24] MEDS: PANTOPRAZOLE 40MG TABLET PO SCH (09:32)
[2020-04-24] MEDS: GABAPENTIN 300 MG CAPSULE PO SCH ×3 (09:32→20:33)
[2020-04-24] MEDS: BUPROPION 100 MG TABLET PO SCH ×2 (09:32→12:39)
[2020-04-24] MEDS: LACTOBACILLUS CHEW TABLET PO SCH ×3 (09:32→20:34)
[2020-04-24] MEDS: SEVELAMER CARBONATE 800MG TAB PO SCH ×3 (09:32→16:48)
[2020-04-24] MEDS: DULOXETINE 30 MG CAPSULE.DR PO SCH (09:32)
[2020-04-24] MEDS: MODAFINIL 100 MG TABLET PO SCH (09:32)
[2020-04-24] MEDS: DAPTOMYCIN 800 MG in SODIUM CHLORIDE 0.9% 100 ML IVPB SCH (12:39)
[2020-04-24 14:00] VITALS: BP 137/87
[2020-04-24] MEDS: HYDROmorphone 1 MG/ML, 1ML INJ IV PRN ×2 (15:13→18:28)
[2020-04-24] MEDS: FERROUS SULFATE 325 MG TABLET PO SCH (16:48)
[2020-04-24 19:52] VITALS: BP 117/80
[2020-04-24] MEDS: SODIUM CHLORIDE 0.9% 1,000 ML IV SCH (19:55)
[2020-04-25] MEDS: MEROPENEM 1 GM in SODIUM CHLORIDE 0.9% 100 ML IV SCH ×3 (00:39→16:27)
[2020-04-25] MEDS: OXYcodone IR 5MG TABLET PO PRN ×3 (00:39→23:47)
[2020-04-25] MEDS: HEPARIN 5,000 UNITS/ML, 1ML SQ SCH ×3 (00:40→16:27)
[2020-04-25 01:03] VITALS: BP 107/73
[2020-04-25] MEDS: FENTANYL REMOVE PATCH NOTE XX SCH (08:30)
[2020-04-25] MEDS: SEVELAMER CARBONATE 800MG TAB PO SCH ×3 (08:34→16:27)
[2020-04-25] MEDS: GABAPENTIN 300 MG CAPSULE PO SCH ×3 (08:35→23:47)
[2020-04-25] MEDS: MAGNESIUM OXIDE 400 MG TABLET PO SCH (08:35)
[2020-04-25] MEDS: SENNA/DOCUSATE TABLET PO SCH (08:35)
[2020-04-25] MEDS: FENTANYL 75 MCG PATCH TD SCH (08:35)
[2020-04-25] MEDS: PANTOPRAZOLE 40MG TABLET PO SCH (08:36)
[2020-04-25] MEDS: MODAFINIL 100 MG TABLET PO SCH (08:36)
[2020-04-25] MEDS: DULOXETINE 30 MG CAPSULE.DR PO SCH (08:36)
[2020-04-25] MEDS: LACTOBACILLUS CHEW TABLET PO SCH ×3 (08:36→23:47)
[2020-04-25] MEDS: BUPROPION 100 MG TABLET PO SCH ×2 (08:36→11:43)
[2020-04-25] MEDS: SODIUM CHLORIDE FLUSH 10ML SYR IVF SCH ×2 (08:37→23:46)
[2020-04-25] MEDS: DAPTOMYCIN 800 MG in SODIUM CHLORIDE 0.9% 100 ML IVPB SCH (11:42)
[2020-04-25 13:19] VITALS: BP 126/82
[2020-04-25] MEDS: HYDROmorphone 1 MG/ML, 1ML INJ IVPush PRN (14:57)
[2020-04-25] MEDS: SODIUM CHLORIDE 0.9% 1,000 ML IV SCH (15:00)
[2020-04-25 20:16] VITALS: BP 135/85
[2020-04-26] MEDS: HEPARIN 5,000 UNITS/ML, 1ML SQ SCH ×3 (00:44→17:00)
[2020-04-26] MEDS: MEROPENEM 1 GM in SODIUM CHLORIDE 0.9% 100 ML IV SCH ×3 (00:44→17:00)
[2020-04-26 01:28] VITALS: BP 121/85
[2020-04-26] MEDS: SODIUM CHLORIDE 0.9% 1,000 ML IV SCH (05:18)
[2020-04-26] MEDS: LACTOBACILLUS CHEW TABLET PO SCH ×3 (08:41→21:56)
[2020-04-26] MEDS: MODAFINIL 100 MG TABLET PO SCH (08:42)
[2020-04-26] MEDS: BUPROPION 100 MG TABLET PO SCH ×2 (08:42→11:42)
[2020-04-26] MEDS: GABAPENTIN 300 MG CAPSULE PO SCH ×3 (08:42→21:56)
[2020-04-26] MEDS: PANTOPRAZOLE 40MG TABLET PO SCH (08:42)
[2020-04-26] MEDS: DULOXETINE 30 MG CAPSULE.DR PO SCH (08:42)
[2020-04-26] MEDS: OXYcodone IR 5MG TABLET PO PRN ×2 (08:42→21:57)
[2020-04-26] MEDS: MAGNESIUM OXIDE 400 MG TABLET PO SCH (08:42)
[2020-04-26] MEDS: SODIUM CHLORIDE FLUSH 10ML SYR IVF SCH ×2 (08:43→21:56)
[2020-04-26] MEDS: SENNA/DOCUSATE TABLET PO SCH (08:43)
[2020-04-26] MEDS: SEVELAMER CARBONATE 800MG TAB PO SCH ×3 (08:51→17:01)
[2020-04-26] MEDS: DAPTOMYCIN 800 MG in SODIUM CHLORIDE 0.9% 100 ML IVPB SCH (11:42)
[2020-04-26 12:22] VITALS: BP 123/81
[2020-04-26] MEDS: HYDROmorphone 1 MG/ML, 1ML INJ IVPush PRN (13:18)
[2020-04-26] MEDS: FERROUS SULFATE 325 MG TABLET PO SCH (17:01)
[2020-04-26 20:46] VITALS: BP 113/76
[2020-04-27 00:33] VITALS: BP 121/80
[2020-04-27] MEDS: MEROPENEM 1 GM in SODIUM CHLORIDE 0.9% 100 ML IV SCH ×3 (00:52→16:29)
[2020-04-27] MEDS: HEPARIN 5,000 UNITS/ML, 1ML SQ SCH ×3 (00:52→16:30)
[2020-04-27] MEDS: OXYcodone IR 5MG TABLET PO PRN ×4 (01:55→21:32)
[2020-04-27 07:09] LABS: BASOPHILS # (AUTO) 0.06 x10^3/uL (0-0.1); BASOPHILS % (AUTO) 1 % (0-1); EOSINOPHILS # (AUTO) 0.38 x10^3/uL (0-0.4); EOSINOPHILS % (AUTO) 4 % (1-7); LYMPHOCYTES # (AUTO) 1.68 x10^3/uL (1-3.4); LYMPHOCYTES % (AUTO) 20 % (22-44); MD NO; MEAN CORPUSCULAR HEMOGLOBIN 26.9 pg (27.5-34.5); MEAN CORPUSCULAR HGB CONC 32.8 g/dL (33.2-36.2); MEAN CORPUSCULAR VOLUME 81.9 fL (81-97); MEAN PLATELET VOLUME 7.7 fL (7.4-10.4); MONOCYTES # (AUTO) 0.58 x10^3/uL (0.2-0.8); MONOCYTES % (AUTO) 7 % (2-9); NEUTROPHILS # (AUTO) 5.87 x10^3/uL (1.8-6.8); NEUTROPHILS % (AUTO) 69 % (42-75); PLATELET COUNT 295 x10^3/uL (130-400); RED BLOOD COUNT 4.28 x10^6/uL (4.38-5.82); RED CELL DISTRIBUTION WIDTH 17.6 % (9.4-14.8)
[2020-04-27 07:22] LABS: ALBUMIN 2.7 g/dL (3.4-5.0); ANION GAP 9 mmol/L (5-15); CALCIUM 9.6 mg/dL (8.5-10.1); CHLORIDE 109 mmol/L (98-107)
[2020-04-27 07:25] LABS: ALANINE AMINOTRANSFERASE 66 U/L (12-78); ALKALINE PHOSPHATASE 152 U/L (45-117); BILIRUBIN,TOTAL 0.4 mg/dL (0.2-1.0); CREATININE 1.49 mg/dL (0.7-1.3); TOTAL PROTEIN 7.5 g/dL (6.4-8.2)
[2020-04-27 08:00] VITALS: BP 126/80
[2020-04-27] MEDS: SEVELAMER CARBONATE 800MG TAB PO SCH ×3 (08:39→16:56)
[2020-04-27] MEDS: SENNA/DOCUSATE TABLET PO SCH (08:39)
[2020-04-27] MEDS: BUPROPION 100 MG TABLET PO SCH ×2 (08:39→12:02)
[2020-04-27] MEDS: MODAFINIL 100 MG TABLET PO SCH (08:39)
[2020-04-27] MEDS: GABAPENTIN 300 MG CAPSULE PO SCH ×3 (08:40→21:32)
[2020-04-27] MEDS: LACTOBACILLUS CHEW TABLET PO SCH ×3 (08:40→21:32)
[2020-04-27] MEDS: PANTOPRAZOLE 40MG TABLET PO SCH (08:40)
[2020-04-27] MEDS: DULOXETINE 30 MG CAPSULE.DR PO SCH (08:40)
[2020-04-27] MEDS: MAGNESIUM OXIDE 400 MG TABLET PO SCH (08:40)
[2020-04-27] MEDS: SODIUM CHLORIDE FLUSH 10ML SYR IVF SCH ×2 (08:41→21:33)
[2020-04-27] MEDS: DAPTOMYCIN 800 MG in SODIUM CHLORIDE 0.9% 100 ML IVPB SCH (12:30)
[2020-04-27] MEDS: HYDROmorphone 1 MG/ML, 1ML INJ IVPush PRN (13:28)
[2020-04-27] MEDS: HYDROmorphone 1 MG/ML, 1ML INJ IV PRN (16:30)
[2020-04-27 21:24] VITALS: BP 135/86
[2020-04-27] MEDS ORDERED: CATHFLO-ALTEPLASE 2 MG/2 ML CATHFLUSH ONE (22:00)
[2020-04-28] MEDS: HEPARIN 5,000 UNITS/ML, 1ML SQ SCH ×3 (00:39→15:37)
[2020-04-28] MEDS: MEROPENEM 1 GM in SODIUM CHLORIDE 0.9% 100 ML IV SCH ×3 (00:39→17:01)
[2020-04-28] MEDS: FENTANYL 75 MCG PATCH TD SCH (09:00)
[2020-04-28] MEDS: FENTANYL REMOVE PATCH NOTE XX SCH (09:01)
[2020-04-28] MEDS: SEVELAMER CARBONATE 800MG TAB PO SCH ×3 (09:02→17:01)
[2020-04-28] MEDS: MAGNESIUM OXIDE 400 MG TABLET PO SCH (09:02)
[2020-04-28] MEDS: SENNA/DOCUSATE TABLET PO SCH (09:02)
[2020-04-28] MEDS: DULOXETINE 30 MG CAPSULE.DR PO SCH (09:03)
[2020-04-28] MEDS: LACTOBACILLUS CHEW TABLET PO SCH ×3 (09:03→21:12)
[2020-04-28] MEDS: BUPROPION 100 MG TABLET PO SCH ×2 (09:03→12:06)
[2020-04-28] MEDS: PANTOPRAZOLE 40MG TABLET PO SCH (09:03)
[2020-04-28] MEDS: MODAFINIL 100 MG TABLET PO SCH (09:03)
[2020-04-28] MEDS: GABAPENTIN 300 MG CAPSULE PO SCH ×3 (09:03→21:12)
[2020-04-28 09:04] VITALS: BP 117/88
[2020-04-28] MEDS: SODIUM CHLORIDE FLUSH 10ML SYR IVF SCH ×2 (09:06→21:12)
[2020-04-28] MEDS: OXYcodone IR 5MG TABLET PO PRN ×2 (09:11→19:38)
[2020-04-28] MEDS: DAPTOMYCIN 800 MG in SODIUM CHLORIDE 0.9% 100 ML IVPB SCH (12:06)
[2020-04-28 13:27] VITALS: BP 133/84
[2020-04-28] MEDS: HYDROmorphone 1 MG/ML, 1ML INJ IVPush PRN (15:08)
[2020-04-28] MEDS: FERROUS SULFATE 325 MG TABLET PO SCH (15:37)
[2020-04-28 19:33] VITALS: BP 125/80
[2020-04-29] MEDS: HEPARIN 5,000 UNITS/ML, 1ML SQ SCH ×3 (00:23→15:55)
[2020-04-29] MEDS: MEROPENEM 1 GM in SODIUM CHLORIDE 0.9% 100 ML IV SCH ×3 (00:23→16:29)
[2020-04-29] MEDS: OXYcodone IR 5MG TABLET PO PRN ×5 (00:43→23:19)
[2020-04-29 01:39] VITALS: BP 110/76
[2020-04-29 05:26] LABS: BASOPHILS # (AUTO) 0.09 x10^3/uL (0-0.1); BASOPHILS % (AUTO) 1 % (0-1); EOSINOPHILS # (AUTO) 0.34 x10^3/uL (0-0.4); EOSINOPHILS % (AUTO) 3 % (1-7); LYMPHOCYTES # (AUTO) 1.95 x10^3/uL (1-3.4); LYMPHOCYTES % (AUTO) 19 % (22-44); MD NO; MEAN CORPUSCULAR HEMOGLOBIN 27.1 pg (27.5-34.5); MEAN CORPUSCULAR HGB CONC 32.8 g/dL (33.2-36.2); MEAN CORPUSCULAR VOLUME 82.7 fL (81-97); MEAN PLATELET VOLUME 7.7 fL (7.4-10.4); MONOCYTES # (AUTO) 0.85 x10^3/uL (0.2-0.8); MONOCYTES % (AUTO) 8 % (2-9); NEUTROPHILS # (AUTO) 6.85 x10^3/uL (1.8-6.8); NEUTROPHILS % (AUTO) 68 % (42-75); PLATELET COUNT 303 x10^3/uL (130-400); RED BLOOD COUNT 4.02 x10^6/uL (4.38-5.82); RED CELL DISTRIBUTION WIDTH 17.6 % (9.4-14.8)
[2020-04-29 05:35] LABS: ALBUMIN 2.6 g/dL (3.4-5.0); ANION GAP 8 mmol/L (5-15); CALCIUM 9.5 mg/dL (8.5-10.1); CHLORIDE 108 mmol/L (98-107)
[2020-04-29 05:46] LABS: ALANINE AMINOTRANSFERASE 55 U/L (12-78); ALKALINE PHOSPHATASE 153 U/L (45-117); BILIRUBIN,TOTAL 0.4 mg/dL (0.2-1.0); CREATININE 1.43 mg/dL (0.7-1.3); TOTAL PROTEIN 7.4 g/dL (6.4-8.2)
[2020-04-29 05:56] LABS: HCT (SEDRATE) 33.2 % (39.2-51.8)
[2020-04-29] MEDS: MODAFINIL 100 MG TABLET PO SCH (07:42)
[2020-04-29] MEDS: SENNA/DOCUSATE TABLET PO SCH (07:42)
[2020-04-29] MEDS: MAGNESIUM OXIDE 400 MG TABLET PO SCH (07:42)
[2020-04-29] MEDS: BUPROPION 100 MG TABLET PO SCH ×2 (07:42→12:47)
[2020-04-29] MEDS: DULOXETINE 30 MG CAPSULE.DR PO SCH (07:42)
[2020-04-29] MEDS: GABAPENTIN 300 MG CAPSULE PO SCH ×3 (07:42→20:46)
[2020-04-29] MEDS: SEVELAMER CARBONATE 800MG TAB PO SCH ×3 (07:42→15:56)
[2020-04-29] MEDS: LACTOBACILLUS CHEW TABLET PO SCH ×3 (07:42→20:46)
[2020-04-29] MEDS: PANTOPRAZOLE 40MG TABLET PO SCH (07:42)
[2020-04-29 09:00] VITALS: BP 121/72
[2020-04-29] MEDS: SODIUM CHLORIDE FLUSH 10ML SYR IVF SCH ×2 (09:00→20:46)
[2020-04-29] MEDS: DAPTOMYCIN 800 MG in SODIUM CHLORIDE 0.9% 100 ML IVPB SCH (12:47)
[2020-04-29 13:49] VITALS: BP 122/78
[2020-04-29] MEDS: HYDROmorphone 1 MG/ML, 1ML INJ IVPush PRN (15:56)
[2020-04-29 20:05] VITALS: BP 122/84
[2020-04-29] MEDS: HYDROmorphone 1 MG/ML, 1ML INJ IV PRN (20:11)
[2020-04-30] MEDS: MEROPENEM 1 GM in SODIUM CHLORIDE 0.9% 100 ML IV SCH ×3 (00:45→15:35)
[2020-04-30] MEDS: HEPARIN 5,000 UNITS/ML, 1ML SQ SCH ×3 (00:46→15:35)
[2020-04-30 02:26] VITALS: BP 120/77
[2020-04-30] MEDS: LACTOBACILLUS CHEW TABLET PO SCH ×2 (08:06→15:35)
[2020-04-30] MEDS: GABAPENTIN 300 MG CAPSULE PO SCH ×2 (08:06→15:34)
[2020-04-30] MEDS: SEVELAMER CARBONATE 800MG TAB PO SCH ×3 (08:06→15:34)
[2020-04-30] MEDS: PANTOPRAZOLE 40MG TABLET PO SCH (08:06)
[2020-04-30] MEDS: DULOXETINE 30 MG CAPSULE.DR PO SCH (08:06)
[2020-04-30] MEDS: MAGNESIUM OXIDE 400 MG TABLET PO SCH (08:06)
[2020-04-30] MEDS: SENNA/DOCUSATE TABLET PO SCH (08:06)
[2020-04-30] MEDS: MODAFINIL 100 MG TABLET PO SCH (08:06)
[2020-04-30] MEDS: BUPROPION 100 MG TABLET PO SCH ×2 (08:07→12:42)
[2020-04-30] MEDS: SODIUM CHLORIDE FLUSH 10ML SYR IVF SCH (08:07)
[2020-04-30] MEDS: OXYcodone IR 5MG TABLET PO PRN ×3 (08:07→19:26)
[2020-04-30 08:42] VITALS: BP 119/78
[2020-04-30] MEDS: DAPTOMYCIN 800 MG in SODIUM CHLORIDE 0.9% 100 ML IVPB SCH (12:43)
[2020-04-30 13:40] VITALS: BP 120/78
[2020-04-30] MEDS: FERROUS SULFATE 325 MG TABLET PO SCH (15:35)
[2020-04-30 20:31] VITALS: BP 117/70
[2020-05-01] MEDS: OXYcodone IR 5MG TABLET PO PRN ×4 (00:19→21:09)
[2020-05-01] MEDS: HEPARIN 5,000 UNITS/ML, 1ML SQ SCH ×4 (00:20→22:39)
[2020-05-01] MEDS: GABAPENTIN 300 MG CAPSULE PO SCH ×4 (00:20→21:09)
[2020-05-01] MEDS: MEROPENEM 1 GM in SODIUM CHLORIDE 0.9% 100 ML IV SCH ×3 (00:20→17:15)
[2020-05-01] MEDS: LACTOBACILLUS CHEW TABLET PO SCH ×4 (00:20→21:09)
[2020-05-01] MEDS: SODIUM CHLORIDE FLUSH 10ML SYR IVF SCH ×3 (00:21→21:10)
[2020-05-01 05:39] VITALS: BP 116/81
[2020-05-01 08:00] VITALS: BP 126/84
[2020-05-01] MEDS: SEVELAMER CARBONATE 800MG TAB PO SCH ×3 (08:23→17:15)
[2020-05-01] MEDS: FENTANYL 75 MCG PATCH TD SCH (08:24)
[2020-05-01] MEDS: FENTANYL REMOVE PATCH NOTE XX SCH (08:24)
[2020-05-01] MEDS: BUPROPION 100 MG TABLET PO SCH ×2 (08:26→12:34)
[2020-05-01] MEDS: MAGNESIUM OXIDE 400 MG TABLET PO SCH (08:27)
[2020-05-01] MEDS: DULOXETINE 30 MG CAPSULE.DR PO SCH (08:28)
[2020-05-01] MEDS: SENNA/DOCUSATE TABLET PO SCH (08:28)
[2020-05-01] MEDS: MODAFINIL 100 MG TABLET PO SCH (08:28)
[2020-05-01] MEDS: PANTOPRAZOLE 40MG TABLET PO SCH (08:29)
[2020-05-01] MEDS: DAPTOMYCIN 800 MG in SODIUM CHLORIDE 0.9% 100 ML IVPB SCH (12:34)
[2020-05-01 14:00] VITALS: BP 122/84
[2020-05-01] MEDS: HYDROmorphone 1 MG/ML, 1ML INJ IV PRN ×2 (15:46→18:45)
[2020-05-01 18:50] VITALS: BP 136/87
[2020-05-02 00:18] VITALS: BP 130/84
[2020-05-02] MEDS: MEROPENEM 1 GM in SODIUM CHLORIDE 0.9% 100 ML IV SCH ×3 (00:42→16:45)
[2020-05-02] MEDS: OXYcodone IR 5MG TABLET PO PRN ×4 (01:33→20:55)
[2020-05-02] MEDS: HEPARIN 5,000 UNITS/ML, 1ML SQ SCH ×3 (05:26→20:54)
[2020-05-02 06:38] VITALS: BP 128/87
[2020-05-02] MEDS: SEVELAMER CARBONATE 800MG TAB PO SCH ×3 (08:34→16:45)
[2020-05-02] MEDS: SENNA/DOCUSATE TABLET PO SCH (08:34)
[2020-05-02] MEDS: MODAFINIL 100 MG TABLET PO SCH (08:35)
[2020-05-02] MEDS: MAGNESIUM OXIDE 400 MG TABLET PO SCH (08:35)
[2020-05-02] MEDS: PANTOPRAZOLE 40MG TABLET PO SCH (08:35)
[2020-05-02] MEDS: DULOXETINE 30 MG CAPSULE.DR PO SCH (08:35)
[2020-05-02] MEDS: LACTOBACILLUS CHEW TABLET PO SCH ×3 (08:35→20:53)
[2020-05-02] MEDS: GABAPENTIN 300 MG CAPSULE PO SCH ×3 (08:35→20:54)
[2020-05-02] MEDS: SODIUM CHLORIDE FLUSH 10ML SYR IVF SCH ×2 (08:36→20:53)
[2020-05-02] MEDS: BUPROPION 100 MG TABLET PO SCH ×2 (08:36→11:59)
[2020-05-02] MEDS: HYDROmorphone 1 MG/ML, 1ML INJ IVPush PRN (10:02)
[2020-05-02] MEDS: DAPTOMYCIN 800 MG in SODIUM CHLORIDE 0.9% 100 ML IVPB SCH (11:59)
[2020-05-02 12:57] VITALS: BP 121/81
[2020-05-02] MEDS: HYDROmorphone 1 MG/ML, 1ML INJ IV PRN ×2 (14:11→17:39)
[2020-05-02] MEDS: FERROUS SULFATE 325 MG TABLET PO SCH (16:45)
[2020-05-02 19:54] VITALS: BP 121/78
[2020-05-03] MEDS: MEROPENEM 1 GM in SODIUM CHLORIDE 0.9% 100 ML IV SCH ×3 (00:44→16:48)
[2020-05-03] MEDS: OXYcodone IR 5MG TABLET PO PRN ×5 (00:49→20:52)
[2020-05-03 01:49] VITALS: BP 123/84
[2020-05-03] MEDS: HEPARIN 5,000 UNITS/ML, 1ML SQ SCH ×3 (05:57→20:53)
[2020-05-03] MEDS: SEVELAMER CARBONATE 800MG TAB PO SCH ×3 (07:58→16:47)
[2020-05-03] MEDS: DULOXETINE 30 MG CAPSULE.DR PO SCH (07:59)
[2020-05-03] MEDS: PANTOPRAZOLE 40MG TABLET PO SCH (07:59)
[2020-05-03] MEDS: BUPROPION 100 MG TABLET PO SCH ×2 (07:59→12:18)
[2020-05-03] MEDS: GABAPENTIN 300 MG CAPSULE PO SCH ×3 (07:59→20:52)
[2020-05-03] MEDS: LACTOBACILLUS CHEW TABLET PO SCH ×3 (07:59→20:52)
[2020-05-03] MEDS: MODAFINIL 100 MG TABLET PO SCH (07:59)
[2020-05-03] MEDS: MAGNESIUM OXIDE 400 MG TABLET PO SCH (07:59)
[2020-05-03 08:00] VITALS: BP 137/83
[2020-05-03] MEDS: SODIUM CHLORIDE FLUSH 10ML SYR IVF SCH ×2 (08:00→20:53)
[2020-05-03] MEDS: SENNA/DOCUSATE TABLET PO SCH (08:00)
[2020-05-03] MEDS: DAPTOMYCIN 800 MG in SODIUM CHLORIDE 0.9% 100 ML IVPB SCH (12:18)
[2020-05-03 13:20] VITALS: BP 123/80
[2020-05-03] MEDS: HYDROmorphone 1 MG/ML, 1ML INJ IV PRN ×2 (15:15→18:06)
[2020-05-03 20:28] VITALS: BP 130/80
[2020-05-04] MEDS: MEROPENEM 1 GM in SODIUM CHLORIDE 0.9% 100 ML IV SCH ×3 (00:24→17:18)
[2020-05-04 00:50] VITALS: BP 117/78
[2020-05-04] MEDS: OXYcodone IR 5MG TABLET PO PRN ×5 (01:16→22:22)
[2020-05-04] MEDS: HEPARIN 5,000 UNITS/ML, 1ML SQ SCH ×3 (05:11→22:23)
[2020-05-04 08:00] VITALS: BP 126/83
[2020-05-04] MEDS: FENTANYL REMOVE PATCH NOTE XX SCH (09:07)
[2020-05-04] MEDS: DULOXETINE 30 MG CAPSULE.DR PO SCH (09:18)
[2020-05-04] MEDS: BUPROPION 100 MG TABLET PO SCH ×2 (09:18→11:57)
[2020-05-04] MEDS: PANTOPRAZOLE 40MG TABLET PO SCH (09:18)
[2020-05-04] MEDS: GABAPENTIN 300 MG CAPSULE PO SCH ×3 (09:18→22:22)
[2020-05-04] MEDS: SODIUM CHLORIDE FLUSH 10ML SYR IVF SCH ×2 (09:18→22:22)
[2020-05-04] MEDS: LACTOBACILLUS CHEW TABLET PO SCH ×3 (09:19→22:22)
[2020-05-04] MEDS: SEVELAMER CARBONATE 800MG TAB PO SCH ×3 (09:19→17:20)
[2020-05-04] MEDS: SENNA/DOCUSATE TABLET PO SCH (09:19)
[2020-05-04] MEDS: MAGNESIUM OXIDE 400 MG TABLET PO SCH (09:19)
[2020-05-04] MEDS: MODAFINIL 100 MG TABLET PO SCH (09:19)
[2020-05-04] MEDS: FENTANYL 75 MCG PATCH TD SCH (09:20)
[2020-05-04] MEDS: DAPTOMYCIN 800 MG in SODIUM CHLORIDE 0.9% 100 ML IVPB SCH (11:38)
[2020-05-04 12:48] VITALS: BP 131/82
[2020-05-04] MEDS: HYDROmorphone 1 MG/ML, 1ML INJ IV PRN (13:47)
[2020-05-04] MEDS: HYDROmorphone 1 MG/ML, 1ML INJ IVPush PRN (15:48)
[2020-05-04] MEDS: FERROUS SULFATE 325 MG TABLET PO SCH (17:20)
[2020-05-04 20:18] VITALS: BP 131/80
[2020-05-05] MEDS: MEROPENEM 1 GM in SODIUM CHLORIDE 0.9% 100 ML IV SCH ×3 (00:07→16:25)
[2020-05-05 02:46] VITALS: BP 135/85
[2020-05-05] MEDS: HEPARIN 5,000 UNITS/ML, 1ML SQ SCH ×3 (06:02→21:23)
[2020-05-05 07:36] VITALS: BP 121/79
[2020-05-05] MEDS: OXYcodone IR 5MG TABLET PO PRN ×3 (08:16→20:33)
[2020-05-05] MEDS: GABAPENTIN 300 MG CAPSULE PO SCH ×3 (08:16→21:22)
[2020-05-05] MEDS: BUPROPION 100 MG TABLET PO SCH ×2 (08:17→11:50)
[2020-05-05] MEDS: PANTOPRAZOLE 40MG TABLET PO SCH (08:17)
[2020-05-05] MEDS: SEVELAMER CARBONATE 800MG TAB PO SCH ×3 (08:17→17:14)
[2020-05-05] MEDS: MAGNESIUM OXIDE 400 MG TABLET PO SCH (08:17)
[2020-05-05] MEDS: LACTOBACILLUS CHEW TABLET PO SCH ×3 (08:17→21:22)
[2020-05-05] MEDS: SENNA/DOCUSATE TABLET PO SCH (08:17)
[2020-05-05] MEDS: MODAFINIL 100 MG TABLET PO SCH (08:18)
[2020-05-05] MEDS: DULOXETINE 30 MG CAPSULE.DR PO SCH (08:18)
[2020-05-05] MEDS: SODIUM CHLORIDE FLUSH 10ML SYR IVF SCH ×2 (08:18→21:00)
[2020-05-05] MEDS: DAPTOMYCIN 800 MG in SODIUM CHLORIDE 0.9% 100 ML IVPB SCH (12:27)
[2020-05-05 14:14] VITALS: BP 155/81
[2020-05-05] MEDS: HYDROmorphone 1 MG/ML, 1ML INJ IV PRN ×2 (14:21→22:38)
[2020-05-05 19:26] VITALS: BP 118/69
[2020-05-06] MEDS: MEROPENEM 1 GM in SODIUM CHLORIDE 0.9% 100 ML IV SCH ×2 (00:35→07:42)
[2020-05-06] MEDS: OXYcodone IR 5MG TABLET PO PRN ×4 (00:38→19:54)
[2020-05-06 01:07] VITALS: BP 113/74
[2020-05-06 05:09] LABS: ALBUMIN 2.5 g/dL (3.4-5.0); ANION GAP 11 mmol/L (5-15); BASOPHILS % (AUTO) 1 % (0-1); CALCIUM 9.4 mg/dL (8.5-10.1); CHLORIDE 110 mmol/L (98-107); EOSINOPHILS # (AUTO) 0.41 x10^3/uL (0-0.4); EOSINOPHILS % (AUTO) 5 % (1-7); LYMPHOCYTES # (AUTO) 1.82 x10^3/uL (1-3.4); LYMPHOCYTES % (AUTO) 21 % (22-44); MD NO; MEAN CORPUSCULAR HGB CONC 32.4 g/dL (33.2-36.2); MEAN CORPUSCULAR VOLUME 83.2 fL (81-97); MEAN PLATELET VOLUME 7.6 fL (7.4-10.4); MONOCYTES # (AUTO) 0.63 x10^3/uL (0.2-0.8); MONOCYTES % (AUTO) 7 % (2-9); NEUTROPHILS # (AUTO) 5.66 x10^3/uL (1.8-6.8); NEUTROPHILS % (AUTO) 66 % (42-75); PLATELET COUNT 308 x10^3/uL (130-400); RED BLOOD COUNT 3.85 x10^6/uL (4.38-5.82); RED CELL DISTRIBUTION WIDTH 17.7 % (9.4-14.8)
[2020-05-06 05:18] LABS: ALANINE AMINOTRANSFERASE 32 U/L (12-78); ALKALINE PHOSPHATASE 147 U/L (45-117); BILIRUBIN,TOTAL 0.3 mg/dL (0.2-1.0); CREATINE KINASE, TOTAL 102 U/L (39-308); CREATININE 1.52 mg/dL (0.7-1.3); TOTAL PROTEIN 7.1 g/dL (6.4-8.2)
[2020-05-06 05:49] LABS: HCT (SEDRATE) 32.1 % (39.2-51.8)
[2020-05-06] MEDS: HEPARIN 5,000 UNITS/ML, 1ML SQ SCH ×3 (06:37→21:22)
[2020-05-06] MEDS: LACTOBACILLUS CHEW TABLET PO SCH ×3 (07:43→21:22)
[2020-05-06] MEDS: BUPROPION 100 MG TABLET PO SCH ×2 (07:43→11:12)
[2020-05-06] MEDS: SEVELAMER CARBONATE 800MG TAB PO SCH ×3 (07:43→15:46)
[2020-05-06] MEDS: DULOXETINE 30 MG CAPSULE.DR PO SCH (07:43)
[2020-05-06] MEDS: GABAPENTIN 300 MG CAPSULE PO SCH ×3 (07:43→21:22)
[2020-05-06] MEDS: MAGNESIUM OXIDE 400 MG TABLET PO SCH (07:43)
[2020-05-06] MEDS: SENNA/DOCUSATE TABLET PO SCH (07:43)
[2020-05-06] MEDS: MODAFINIL 100 MG TABLET PO SCH (07:44)
[2020-05-06] MEDS: PANTOPRAZOLE 40MG TABLET PO SCH (07:44)
[2020-05-06] MEDS: SODIUM CHLORIDE FLUSH 10ML SYR IVF SCH ×2 (07:45→19:53)
[2020-05-06 08:00] VITALS: BP 118/81
[2020-05-06] MEDS ORDERED: MEROPENEM 1 GM in SODIUM CHLORIDE 0.9% 100 ML IV SCH ×2 (10:30→16:00)
[2020-05-06] MEDS ORDERED: DAPTOMYCIN 800 MG in SODIUM CHLORIDE 0.9% 100 ML IVPB SCH (11:00)
[2020-05-06] MEDS: HYDROmorphone 1 MG/ML, 1ML INJ IV PRN ×2 (11:12→23:29)
[2020-05-06 14:03] VITALS: BP 135/90
[2020-05-06] MEDS: FERROUS SULFATE 325 MG TABLET PO SCH (15:43)
[2020-05-06 19:17] VITALS: BP 119/75
[2020-05-07] MEDS: OXYcodone IR 5MG TABLET PO PRN ×4 (00:01→21:16)
[2020-05-07 01:35] VITALS: BP 116/73
[2020-05-07] MEDS: HEPARIN 5,000 UNITS/ML, 1ML SQ SCH ×3 (05:38→22:19)
[2020-05-07] MEDS: FENTANYL REMOVE PATCH NOTE XX SCH (08:30)
[2020-05-07] MEDS: MAGNESIUM OXIDE 400 MG TABLET PO SCH (08:31)
[2020-05-07] MEDS: GABAPENTIN 300 MG CAPSULE PO SCH ×3 (08:31→20:48)
[2020-05-07] MEDS: SEVELAMER CARBONATE 800MG TAB PO SCH ×3 (08:31→17:11)
[2020-05-07] MEDS: DULOXETINE 30 MG CAPSULE.DR PO SCH (08:31)
[2020-05-07] MEDS: FENTANYL 75 MCG PATCH TD SCH (08:31)
[2020-05-07] MEDS: LACTOBACILLUS CHEW TABLET PO SCH ×3 (08:31→20:48)
[2020-05-07] MEDS: SODIUM CHLORIDE FLUSH 10ML SYR IVF SCH ×2 (08:32→20:48)
[2020-05-07] MEDS: BUPROPION 100 MG TABLET PO SCH ×2 (08:32→12:05)
[2020-05-07] MEDS: SENNA/DOCUSATE TABLET PO SCH (08:32)
[2020-05-07] MEDS: MODAFINIL 100 MG TABLET PO SCH (08:32)
[2020-05-07] MEDS: PANTOPRAZOLE 40MG TABLET PO SCH (08:32)
[2020-05-07 09:05] VITALS: BP 133/89
[2020-05-07 13:59] VITALS: BP 139/85
[2020-05-07] MEDS: HYDROmorphone 1 MG/ML, 1ML INJ IV PRN (16:54)
[2020-05-07 19:42] VITALS: BP 105/69
[2020-05-08 01:22] VITALS: BP 109/70
[2020-05-08] MEDS: OXYcodone IR 5MG TABLET PO PRN ×6 (01:25→22:37)
[2020-05-08] MEDS: HEPARIN 5,000 UNITS/ML, 1ML SQ SCH ×3 (05:34→21:28)
[2020-05-08 07:11] VITALS: BP 118/78
[2020-05-08] MEDS: PANTOPRAZOLE 40MG TABLET PO SCH (08:02)
[2020-05-08] MEDS: GABAPENTIN 300 MG CAPSULE PO SCH ×3 (08:02→21:28)
[2020-05-08] MEDS: SEVELAMER CARBONATE 800MG TAB PO SCH ×3 (08:02→16:54)
[2020-05-08] MEDS: DULOXETINE 30 MG CAPSULE.DR PO SCH (08:39)
[2020-05-08] MEDS: BUPROPION 100 MG TABLET PO SCH ×2 (08:39→11:50)
[2020-05-08] MEDS: MAGNESIUM OXIDE 400 MG TABLET PO SCH (08:40)
[2020-05-08] MEDS: SODIUM CHLORIDE FLUSH 10ML SYR IVF SCH ×2 (08:40→21:29)
[2020-05-08] MEDS: LACTOBACILLUS CHEW TABLET PO SCH ×3 (08:40→21:00)
[2020-05-08] MEDS: MODAFINIL 100 MG TABLET PO SCH (08:40)
[2020-05-08] MEDS: SENNA/DOCUSATE TABLET PO SCH (08:40)
[2020-05-08] MEDS: HYDROmorphone 1 MG/ML, 1ML INJ IV PRN ×2 (09:50→13:41)
[2020-05-08 12:28] VITALS: BP 122/82
[2020-05-08] MEDS: FERROUS SULFATE 325 MG TABLET PO SCH (16:54)
[2020-05-08 18:43] VITALS: BP 118/78
[2020-05-09 01:50] VITALS: BP 121/81
[2020-05-09] MEDS: OXYcodone IR 5MG TABLET PO PRN ×5 (02:30→20:29)
[2020-05-09] MEDS: HEPARIN 5,000 UNITS/ML, 1ML SQ SCH ×3 (06:01→20:30)
[2020-05-09 07:03] VITALS: BP 109/69
[2020-05-09] MEDS: BUPROPION 100 MG TABLET PO SCH ×2 (07:37→11:48)
[2020-05-09] MEDS: SEVELAMER CARBONATE 800MG TAB PO SCH ×3 (07:37→17:08)
[2020-05-09] MEDS: PANTOPRAZOLE 40MG TABLET PO SCH (07:37)
[2020-05-09] MEDS: MODAFINIL 100 MG TABLET PO SCH (08:39)
[2020-05-09] MEDS: GABAPENTIN 300 MG CAPSULE PO SCH ×3 (08:39→20:30)
[2020-05-09] MEDS: MAGNESIUM OXIDE 400 MG TABLET PO SCH (08:39)
[2020-05-09] MEDS: SENNA/DOCUSATE TABLET PO SCH (08:39)
[2020-05-09] MEDS: LACTOBACILLUS CHEW TABLET PO SCH ×3 (08:39→20:30)
[2020-05-09] MEDS: DULOXETINE 30 MG CAPSULE.DR PO SCH (08:40)
[2020-05-09] MEDS: SODIUM CHLORIDE FLUSH 10ML SYR IVF SCH ×2 (08:40→20:30)
[2020-05-09] MEDS: HYDROmorphone 1 MG/ML, 1ML INJ IV PRN ×2 (14:07→15:27)
[2020-05-09 14:34] VITALS: BP 126/83
[2020-05-09 20:45] VITALS: BP 121/70
[2020-05-09] MEDS: HYDROmorphone 1 MG/ML, 1ML INJ IVPush PRN (23:28)
[2020-05-10 01:04] VITALS: BP 115/75
[2020-05-10] MEDS: OXYcodone IR 5MG TABLET PO PRN ×5 (01:57→23:02)
[2020-05-10] MEDS: HEPARIN 5,000 UNITS/ML, 1ML SQ SCH ×3 (05:12→22:42)
[2020-05-10 05:40] LABS: ALANINE AMINOTRANSFERASE 40 U/L (12-78); ALBUMIN 2.4 g/dL (3.4-5.0); ANION GAP 9 mmol/L (5-15); CALCIUM 9.7 mg/dL (8.5-10.1); CHLORIDE 109 mmol/L (98-107); CREATININE 1.69 mg/dL (0.7-1.3)
[2020-05-10 05:45] LABS: BASOPHILS # (AUTO) 0.05 x10^3/uL (0-0.1); BASOPHILS % (AUTO) 0 % (0-1); EOSINOPHILS % (AUTO) 4 % (1-7); LYMPHOCYTES # (AUTO) 1.69 x10^3/uL (1-3.4); LYMPHOCYTES % (AUTO) 15 % (22-44); MD NO; MEAN CORPUSCULAR HEMOGLOBIN 27.1 pg (27.5-34.5); MEAN CORPUSCULAR HGB CONC 32.9 g/dL (33.2-36.2); MEAN CORPUSCULAR VOLUME 82.3 fL (81-97); MEAN PLATELET VOLUME 7.9 fL (7.4-10.4); MONOCYTES # (AUTO) 0.76 x10^3/uL (0.2-0.8); MONOCYTES % (AUTO) 7 % (2-9); NEUTROPHILS # (AUTO) 8.43 x10^3/uL (1.8-6.8); NEUTROPHILS % (AUTO) 74 % (42-75); PLATELET COUNT 274 x10^3/uL (130-400); RED BLOOD COUNT 3.69 x10^6/uL (4.38-5.82); RED CELL DISTRIBUTION WIDTH 17.1 % (9.4-14.8)
[2020-05-10 05:48] LABS: ALKALINE PHOSPHATASE 173 U/L (45-117); BILIRUBIN,TOTAL 0.4 mg/dL (0.2-1.0); TOTAL PROTEIN 7.3 g/dL (6.4-8.2)
[2020-05-10 06:06] LABS: HCT (SEDRATE) 30.4 % (39.2-51.8)
[2020-05-10] MEDS: SEVELAMER CARBONATE 800MG TAB PO SCH ×3 (09:10→16:51)
[2020-05-10] MEDS: BUPROPION 100 MG TABLET PO SCH ×2 (09:10→12:25)
[2020-05-10] MEDS: SENNA/DOCUSATE TABLET PO SCH (09:10)
[2020-05-10] MEDS: PANTOPRAZOLE 40MG TABLET PO SCH (09:10)
[2020-05-10] MEDS: FENTANYL 75 MCG PATCH TD SCH (09:11)
[2020-05-10] MEDS: DULOXETINE 30 MG CAPSULE.DR PO SCH (09:11)
[2020-05-10] MEDS: MODAFINIL 100 MG TABLET PO SCH (09:11)
[2020-05-10] MEDS: LACTOBACILLUS CHEW TABLET PO SCH ×3 (09:11→22:41)
[2020-05-10] MEDS: GABAPENTIN 300 MG CAPSULE PO SCH ×3 (09:11→22:41)
[2020-05-10] MEDS: MAGNESIUM OXIDE 400 MG TABLET PO SCH (09:11)
[2020-05-10] MEDS: SODIUM CHLORIDE FLUSH 10ML SYR IVF SCH ×2 (09:13→22:41)
[2020-05-10] MEDS: FENTANYL REMOVE PATCH NOTE XX SCH (09:13)
[2020-05-10] MEDS: HYDROmorphone 1 MG/ML, 1ML INJ IV PRN ×3 (11:08→14:52)
[2020-05-10 14:00] VITALS: BP 125/84
[2020-05-10] MEDS: FERROUS SULFATE 325 MG TABLET PO SCH (16:51)
[2020-05-10 19:47] VITALS: BP 130/85
[2020-05-10] MEDS: ACETAMINOPHEN 325 MG TABLET PO PRN (23:02)
[2020-05-10] MEDS: HYDROmorphone 1 MG/ML, 1ML INJ IVPush PRN (23:50)
[2020-05-11 01:23] VITALS: BP 120/77
[2020-05-11 04:47] LABS: ANION GAP 7 mmol/L (5-15); CALCIUM 9.4 mg/dL (8.5-10.1); CHLORIDE 106 mmol/L (98-107); CREATININE 1.67 mg/dL (0.7-1.3)
[2020-05-11 04:50] LABS: BASOPHILS # (AUTO) 0.05 x10^3/uL (0-0.1); BASOPHILS % (AUTO) 0 % (0-1); EOSINOPHILS # (AUTO) 0.43 x10^3/uL (0-0.4); EOSINOPHILS % (AUTO) 4 % (1-7); LYMPHOCYTES # (AUTO) 2.09 x10^3/uL (1-3.4); LYMPHOCYTES % (AUTO) 17 % (22-44); MD NO; MEAN CORPUSCULAR HEMOGLOBIN 26.9 pg (27.5-34.5); MEAN CORPUSCULAR HGB CONC 32.5 g/dL (33.2-36.2); MEAN CORPUSCULAR VOLUME 82.6 fL (81-97); MONOCYTES # (AUTO) 0.88 x10^3/uL (0.2-0.8); MONOCYTES % (AUTO) 7 % (2-9); NEUTROPHILS % (AUTO) 72 % (42-75); PLATELET COUNT 303 x10^3/uL (130-400); RED BLOOD COUNT 3.81 x10^6/uL (4.38-5.82); RED CELL DISTRIBUTION WIDTH 17.1 % (9.4-14.8)
[2020-05-11] MEDS: HEPARIN 5,000 UNITS/ML, 1ML SQ SCH ×3 (07:32→22:57)
[2020-05-11 08:00] VITALS: BP 113/74
[2020-05-11] MEDS: DULOXETINE 30 MG CAPSULE.DR PO SCH (08:05)
[2020-05-11] MEDS: SEVELAMER CARBONATE 800MG TAB PO SCH ×4 (08:05→17:00)
[2020-05-11] MEDS: SENNA/DOCUSATE TABLET PO SCH (08:05)
[2020-05-11] MEDS: MAGNESIUM OXIDE 400 MG TABLET PO SCH (08:05)
[2020-05-11] MEDS: MODAFINIL 100 MG TABLET PO SCH (08:05)
[2020-05-11] MEDS: GABAPENTIN 300 MG CAPSULE PO SCH ×3 (08:05→22:31)
[2020-05-11] MEDS: BUPROPION 100 MG TABLET PO SCH ×2 (08:05→12:02)
[2020-05-11] MEDS: LACTOBACILLUS CHEW TABLET PO SCH ×3 (08:05→22:29)
[2020-05-11] MEDS: SODIUM CHLORIDE FLUSH 10ML SYR IVF SCH ×2 (08:06→22:34)
[2020-05-11] MEDS: PANTOPRAZOLE 40MG TABLET PO SCH (08:06)
[2020-05-11] MEDS: MUPIROCIN OINT 2%, 22GM TP SCH ×3 (10:02→23:12)
[2020-05-11 12:58] VITALS: BP 126/84
[2020-05-11] MEDS: HYDROmorphone 1 MG/ML, 1ML INJ IV PRN ×2 (13:56→15:38)
[2020-05-11 19:15] VITALS: BP 110/74
[2020-05-11] MEDS: OXYcodone IR 5MG TABLET PO PRN (22:57)
[2020-05-11] MEDS: ACETAMINOPHEN 325 MG TABLET PO PRN (22:57)
[2020-05-12 01:42] VITALS: BP 118/75
[2020-05-12] MEDS: OXYcodone IR 5MG TABLET PO PRN ×4 (03:23→21:03)
[2020-05-12] MEDS: PHENAZOPYRIDINE 200 MG TABLET PO PRN (03:39)
[2020-05-12 07:47] VITALS: BP 115/78
[2020-05-12] MEDS: LACTOBACILLUS CHEW TABLET PO SCH ×3 (08:20→20:53)
[2020-05-12] MEDS: SENNA/DOCUSATE TABLET PO SCH (08:20)
[2020-05-12] MEDS: DULOXETINE 30 MG CAPSULE.DR PO SCH (08:20)
[2020-05-12] MEDS: MODAFINIL 100 MG TABLET PO SCH (08:20)
[2020-05-12] MEDS: BUPROPION 100 MG TABLET PO SCH ×2 (08:20→11:50)
[2020-05-12] MEDS: SEVELAMER CARBONATE 800MG TAB PO SCH ×3 (08:21→16:50)
[2020-05-12] MEDS: GABAPENTIN 300 MG CAPSULE PO SCH ×3 (08:21→20:52)
[2020-05-12] MEDS: MAGNESIUM OXIDE 400 MG TABLET PO SCH (08:21)
[2020-05-12] MEDS: SODIUM CHLORIDE FLUSH 10ML SYR IVF SCH ×2 (08:21→20:54)
[2020-05-12] MEDS: PANTOPRAZOLE 40MG TABLET PO SCH (08:21)
[2020-05-12] MEDS: HEPARIN 5,000 UNITS/ML, 1ML SQ SCH ×3 (08:21→23:53)
[2020-05-12] MEDS: MUPIROCIN OINT 2%, 22GM TP SCH ×3 (08:23→20:54)
[2020-05-12 08:49] LABS: BASOPHILS # (AUTO) 0.04 x10^3/uL (0-0.1); BASOPHILS % (AUTO) 0 % (0-1); EOSINOPHILS # (AUTO) 0.37 x10^3/uL (0-0.4); EOSINOPHILS % (AUTO) 3 % (1-7); LYMPHOCYTES # (AUTO) 1.83 x10^3/uL (1-3.4); LYMPHOCYTES % (AUTO) 16 % (22-44); MD NO; MEAN CORPUSCULAR HEMOGLOBIN 27.2 pg (27.5-34.5); MEAN CORPUSCULAR HGB CONC 32.9 g/dL (33.2-36.2); MEAN CORPUSCULAR VOLUME 82.9 fL (81-97); MEAN PLATELET VOLUME 7.7 fL (7.4-10.4); MONOCYTES # (AUTO) 0.74 x10^3/uL (0.2-0.8); MONOCYTES % (AUTO) 7 % (2-9); NEUTROPHILS % (AUTO) 74 % (42-75); PLATELET COUNT 309 x10^3/uL (130-400); RED CELL DISTRIBUTION WIDTH 17.3 % (9.4-14.8)
[2020-05-12 08:56] LABS: ANION GAP 6 mmol/L (5-15); CALCIUM 9.7 mg/dL (8.5-10.1); CHLORIDE 108 mmol/L (98-107); CREATININE 1.62 mg/dL (0.7-1.3)
[2020-05-12] MEDS: HYDROmorphone 1 MG/ML, 1ML INJ IV PRN (13:37)
[2020-05-12 14:01] VITALS: BP 145/85
[2020-05-12] MEDS: FERROUS SULFATE 325 MG TABLET PO SCH (16:49)
[2020-05-12 19:57] VITALS: BP 131/69
[2020-05-13] MEDS: OXYcodone IR 5MG TABLET PO PRN ×4 (01:04→20:19)
[2020-05-13 01:08] VITALS: BP 133/88
[2020-05-13 04:48] LABS: BASOPHILS # (AUTO) 0.07 x10^3/uL (0-0.1); BASOPHILS % (AUTO) 1 % (0-1); EOSINOPHILS # (AUTO) 0.37 x10^3/uL (0-0.4); EOSINOPHILS % (AUTO) 3 % (1-7); LYMPHOCYTES # (AUTO) 2.11 x10^3/uL (1-3.4); LYMPHOCYTES % (AUTO) 19 % (22-44); MD NO; MEAN CORPUSCULAR HEMOGLOBIN 27.3 pg (27.5-34.5); MEAN CORPUSCULAR HGB CONC 33.2 g/dL (33.2-36.2); MEAN CORPUSCULAR VOLUME 82.2 fL (81-97); MEAN PLATELET VOLUME 7.7 fL (7.4-10.4); MONOCYTES # (AUTO) 0.81 x10^3/uL (0.2-0.8); MONOCYTES % (AUTO) 7 % (2-9); NEUTROPHILS # (AUTO) 7.96 x10^3/uL (1.8-6.8); NEUTROPHILS % (AUTO) 70 % (42-75); PLATELET COUNT 305 x10^3/uL (130-400); RED CELL DISTRIBUTION WIDTH 17.4 % (9.4-14.8)
[2020-05-13 04:56] LABS: ANION GAP 5 mmol/L (5-15); CALCIUM 9.4 mg/dL (8.5-10.1); CHLORIDE 108 mmol/L (98-107)
[2020-05-13] MEDS: SEVELAMER CARBONATE 800MG TAB PO SCH ×3 (07:36→16:04)
[2020-05-13 09:01] VITALS: BP 123/84
[2020-05-13] MEDS: BUPROPION 100 MG TABLET PO SCH ×2 (09:20→12:19)
[2020-05-13] MEDS: HEPARIN 5,000 UNITS/ML, 1ML SQ SCH ×2 (09:20→16:03)
[2020-05-13] MEDS: SENNA/DOCUSATE TABLET PO SCH (09:20)
[2020-05-13] MEDS: PANTOPRAZOLE 40MG TABLET PO SCH (09:20)
[2020-05-13] MEDS: FENTANYL 75 MCG PATCH TD SCH (09:21)
[2020-05-13] MEDS: DULOXETINE 30 MG CAPSULE.DR PO SCH (09:22)
[2020-05-13] MEDS: MODAFINIL 100 MG TABLET PO SCH (09:22)
[2020-05-13] MEDS: GABAPENTIN 300 MG CAPSULE PO SCH ×3 (09:22→21:37)
[2020-05-13] MEDS: MAGNESIUM OXIDE 400 MG TABLET PO SCH (09:22)
[2020-05-13] MEDS: FENTANYL REMOVE PATCH NOTE XX SCH (09:22)
[2020-05-13] MEDS: SODIUM CHLORIDE FLUSH 10ML SYR IVF SCH ×2 (09:22→21:38)
[2020-05-13] MEDS: LACTOBACILLUS CHEW TABLET PO SCH ×3 (09:22→21:38)
[2020-05-13] MEDS: MUPIROCIN OINT 2%, 22GM TP SCH ×3 (09:23→21:38)
[2020-05-13] MEDS: HYDROmorphone 1 MG/ML, 1ML INJ IVPush PRN ×3 (11:19→15:30)
[2020-05-13 13:02] VITALS: BP 112/77
[2020-05-13] MEDS ORDERED: FENTANYL PF 250 MCG/5ML ONE (14:12)
[2020-05-13] MEDS ORDERED: MIDAZOLAM 1 MG/ML, 2ML ONE (14:12)
[2020-05-13] MEDS ORDERED: LIDOCAINE 1%, 10ML ONE (14:12)
[2020-05-13] MEDS ORDERED: PROPOFOL 10 MG/ML, 20ML ONE (14:13)
[2020-05-13] MEDS ORDERED: ONDANSETRON 2MG/ML, 2ML ONE (14:13)
[2020-05-13] MEDS ORDERED: DEXAMETHASONE 4 MG/ML, 1ML ONE (14:13)
[2020-05-13] MEDS ORDERED: VISIPAQUE 270 MG/ML, 50ML BOTTLE ONE (15:07)
[2020-05-13] MEDS ORDERED: LORazepam 2 MG/ML, 1ML ONE (15:17)
[2020-05-13] MEDS ORDERED: HYDROmorphone 1 MG/ML, 1ML INJ ONE (15:17)
[2020-05-13] MEDS ORDERED: EPHEDRINE 50 MG/ML, 1ML IVPush PRN (15:30)
[2020-05-13] MEDS ORDERED: DIAZEPAM 5 MG/ML, 2ML IVPush PRN (15:30)
[2020-05-13] MEDS ORDERED: hydrALAzine 20 MG/ML, 1ML IV PRN (15:30)
[2020-05-13] MEDS ORDERED: FENTANYL PF 100 MCG/2ML IV PRN (15:30)
[2020-05-13] MEDS ORDERED: DIPHENHYDRAMINE 50 MG/ML, 1ML IVPush ONE (15:30)
[2020-05-13] MEDS ORDERED: ALBUTEROL SULFATE 2.5 MG/3 ML NPPB PRN (15:30)
[2020-05-13] MEDS ORDERED: MEPERIDINE/PF 25MG/0.5ML IVPush PRN (15:30)
[2020-05-13] MEDS ORDERED: LABETALOL 5MG/ML, 20ML IV PRN (15:30)
[2020-05-13] MEDS ORDERED: ONDANSETRON 2MG/ML, 2ML IVPush PRN (15:30)
[2020-05-13] MEDS ORDERED: LORazepam 2 MG/ML, 1ML IVPush PRN (15:30)
[2020-05-13] MEDS ORDERED: PROMETHAZINE 12.5 MG SUPP PR PRN (15:30)
[2020-05-13] MEDS ORDERED: MIDAZOLAM 1 MG/ML, 2ML IV PRN (15:30)
[2020-05-13] MEDS ORDERED: PROMETHAZINE 25 MG/ML, 1ML IVPush PRN (15:30)
[2020-05-13] MEDS ORDERED: OXYcodone 5 MG/5 ML ORAL.SOL UDC PO PRN (15:30)
[2020-05-13] MEDS: LACTULOSE 20 GM/30 ML UDC PO PRN (18:38)
[2020-05-13 19:21] VITALS: BP 123/88
[2020-05-13] MEDS: ONDANSETRON 2MG/ML, 2ML IVPush PRN (20:12)
[2020-05-14] MEDS: HEPARIN 5,000 UNITS/ML, 1ML SQ SCH ×2 (01:06→07:54)
[2020-05-14] MEDS: OXYcodone IR 5MG TABLET PO PRN ×3 (01:07→12:31)
[2020-05-14 02:08] VITALS: BP 110/73
[2020-05-14] MEDS: SODIUM CHLORIDE FLUSH 10ML SYR IVF SCH (07:52)
[2020-05-14] MEDS: SEVELAMER CARBONATE 800MG TAB PO SCH ×2 (07:53→11:51)
[2020-05-14] MEDS: PANTOPRAZOLE 40MG TABLET PO SCH (07:53)
[2020-05-14] MEDS: BUPROPION 100 MG TABLET PO SCH ×2 (07:54→11:51)
[2020-05-14 08:12] VITALS: BP 115/84
[2020-05-14] MEDS: SENNA/DOCUSATE TABLET PO SCH (08:13)
[2020-05-14] MEDS: LACTOBACILLUS CHEW TABLET PO SCH (08:13)
[2020-05-14] MEDS: DULOXETINE 30 MG CAPSULE.DR PO SCH (08:14)
[2020-05-14] MEDS: GABAPENTIN 300 MG CAPSULE PO SCH (08:14)
[2020-05-14] MEDS: MODAFINIL 100 MG TABLET PO SCH (08:14)
[2020-05-14] MEDS: MAGNESIUM OXIDE 400 MG TABLET PO SCH (08:14)
[2020-05-14] MEDS: MUPIROCIN OINT 2%, 22GM TP SCH (09:55)
[2020-05-14] MEDS: HYDROmorphone 1 MG/ML, 1ML INJ IVPush PRN (11:51)
[2020-05-14 13:30] VITALS: BP 129/76
[2020-05-14] MEDS ORDERED: BUPR100T11 PO (13:35)
[2020-05-14] MEDS ORDERED: FENT1PAT77 TD (13:35)
[2020-05-14] MEDS ORDERED: PANT40TA5 PO (13:35)
[2020-05-14] MEDS ORDERED: FERR-51 PO (13:35)
[2020-05-14] MEDS ORDERED: GABA300C PO (13:35)
[2020-05-14] MEDS ORDERED: MAGN400T50 PO (13:35)
[2020-05-14] MEDS ORDERED: DULO30CA2 PO (13:35)
[2020-05-14] MEDS ORDERED: OXYC5TAB3 PO (13:35)
== END 2020-05-14 14:25 | disposition home or self-care (01) | DRG 4 ==
LOC: CCU 07:18 → 4NE 09-12 09:38
PROVIDERS: ADMIT Internal Medicine Critical Care Medicine; ATTEND Internal Medicine
PROC: 5A1955Z Respiratory Ventilation, Greater than 96 Consecutive Hours (ICD-10-PCS; 2019-05-27)
PROC: 0BH17EZ Insertion of Endotracheal Airway into Trachea, Via Natural or Artificial Opening (ICD-10-PCS; 2019-05-27)
PROC: 5A1D70Z Performance of Urinary Filtration, Intermittent, Less than 6 Hours Per Day (ICD-10-PCS; 2019-05-28)
PROC: 06H033Z Insertion of Infusion Device into Inferior Vena Cava, Percutaneous Approach (ICD-10-PCS; 2019-05-28)
PROC: B549ZZA Ultrasonography of Inferior Vena Cava, Guidance (ICD-10-PCS; 2019-05-28)
PROC: B548ZZA Ultrasonography of Superior Vena Cava, Guidance (ICD-10-PCS; 2019-06-01)
PROC: 02HV33Z Insertion of Infusion Device into Superior Vena Cava, Percutaneous Approach (ICD-10-PCS; 2019-06-02)
PROC: B548ZZA Ultrasonography of Superior Vena Cava, Guidance (ICD-10-PCS; 2019-06-02)
PROC: 5A1D70Z Performance of Urinary Filtration, Intermittent, Less than 6 Hours Per Day (ICD-10-PCS; 2019-06-04)
PROC: 5A1D70Z Performance of Urinary Filtration, Intermittent, Less than 6 Hours Per Day (ICD-10-PCS; 2019-06-05)
PROC: 5A1D70Z Performance of Urinary Filtration, Intermittent, Less than 6 Hours Per Day (ICD-10-PCS; 2019-06-06)
PROC: 5A1D70Z Performance of Urinary Filtration, Intermittent, Less than 6 Hours Per Day (ICD-10-PCS; 2019-06-07)
PROC: 5A1D70Z Performance of Urinary Filtration, Intermittent, Less than 6 Hours Per Day (ICD-10-PCS; 2019-06-08)
PROC: 5A1D70Z Performance of Urinary Filtration, Intermittent, Less than 6 Hours Per Day (ICD-10-PCS; 2019-06-09)
PROC: 5A1D70Z Performance of Urinary Filtration, Intermittent, Less than 6 Hours Per Day (ICD-10-PCS; 2019-06-10)
PROC: 5A1D70Z Performance of Urinary Filtration, Intermittent, Less than 6 Hours Per Day (ICD-10-PCS; 2019-06-11)
PROC: 5A1D70Z Performance of Urinary Filtration, Intermittent, Less than 6 Hours Per Day (ICD-10-PCS; 2019-06-12)
PROC: 5A1D70Z Performance of Urinary Filtration, Intermittent, Less than 6 Hours Per Day (ICD-10-PCS; 2019-06-13)
PROC: 5A1D70Z Performance of Urinary Filtration, Intermittent, Less than 6 Hours Per Day (ICD-10-PCS; 2019-06-14)
PROC: 5A1D70Z Performance of Urinary Filtration, Intermittent, Less than 6 Hours Per Day (ICD-10-PCS; 2019-06-15)
PROC: 0B110F4 Bypass Trachea to Cutaneous with Tracheostomy Device, Open Approach (ICD-10-PCS; principal; 2019-06-15 12:45)
PROC: 5A1D70Z Performance of Urinary Filtration, Intermittent, Less than 6 Hours Per Day (ICD-10-PCS; 2019-06-17)
PROC: 5A1D70Z Performance of Urinary Filtration, Intermittent, Less than 6 Hours Per Day (ICD-10-PCS; 2019-06-18)
PROC: 0T9B70Z Drainage of Bladder with Drainage Device, Via Natural or Artificial Opening (ICD-10-PCS; 2019-06-19)
PROC: 5A1D70Z Performance of Urinary Filtration, Intermittent, Less than 6 Hours Per Day (ICD-10-PCS; 2019-06-20)
PROC: 5A1D70Z Performance of Urinary Filtration, Intermittent, Less than 6 Hours Per Day (ICD-10-PCS; 2019-06-22)
PROC: 5A1D70Z Performance of Urinary Filtration, Intermittent, Less than 6 Hours Per Day (ICD-10-PCS; 2019-06-24)
PROC: 5A1D70Z Performance of Urinary Filtration, Intermittent, Less than 6 Hours Per Day (ICD-10-PCS; 2019-06-25)
PROC: 5A1D70Z Performance of Urinary Filtration, Intermittent, Less than 6 Hours Per Day (ICD-10-PCS; 2019-06-27)
PROC: 0JB70ZZ Excision of Back Subcutaneous Tissue and Fascia, Open Approach (ICD-10-PCS; 2019-06-28)
PROC: 5A1D70Z Performance of Urinary Filtration, Intermittent, Less than 6 Hours Per Day (ICD-10-PCS; 2019-06-29)
PROC: 5A1D70Z Performance of Urinary Filtration, Intermittent, Less than 6 Hours Per Day (ICD-10-PCS; 2019-07-01)
PROC: 0KBP0ZZ Excision of Left Hip Muscle, Open Approach (ICD-10-PCS; 2019-07-03)
PROC: 0D9A40Z Drainage of Jejunum with Drainage Device, Percutaneous Endoscopic Approach (ICD-10-PCS; 2019-07-03)
PROC: 5A1D70Z Performance of Urinary Filtration, Intermittent, Less than 6 Hours Per Day (ICD-10-PCS; 2019-07-03)
PROC: 0D1M4Z4 Bypass Descending Colon to Cutaneous, Percutaneous Endoscopic Approach (ICD-10-PCS; 2019-07-03 19:15)
PROC: 5A1D70Z Performance of Urinary Filtration, Intermittent, Less than 6 Hours Per Day (ICD-10-PCS; 2019-07-04)
PROC: 5A1D70Z Performance of Urinary Filtration, Intermittent, Less than 6 Hours Per Day (ICD-10-PCS; 2019-07-06)
PROC: 5A1D70Z Performance of Urinary Filtration, Intermittent, Less than 6 Hours Per Day (ICD-10-PCS; 2019-07-08)
PROC: 5A1D70Z Performance of Urinary Filtration, Intermittent, Less than 6 Hours Per Day (ICD-10-PCS; 2019-07-10)
PROC: 5A1D70Z Performance of Urinary Filtration, Intermittent, Less than 6 Hours Per Day (ICD-10-PCS; 2019-07-12)
PROC: 02HV33Z Insertion of Infusion Device into Superior Vena Cava, Percutaneous Approach (ICD-10-PCS; 2019-07-14)
PROC: 02HV33Z Insertion of Infusion Device into Superior Vena Cava, Percutaneous Approach (ICD-10-PCS; 2019-07-14)
PROC: B548ZZA Ultrasonography of Superior Vena Cava, Guidance (ICD-10-PCS; 2019-07-14)
PROC: 5A1D70Z Performance of Urinary Filtration, Intermittent, Less than 6 Hours Per Day (ICD-10-PCS; 2019-07-14)
PROC: 0KBP0ZZ Excision of Left Hip Muscle, Open Approach (ICD-10-PCS; 2019-07-15)
PROC: 30233N1 Transfusion of Nonautologous Red Blood Cells into Peripheral Vein, Percutaneous Approach (ICD-10-PCS; 2019-07-15)
PROC: 5A1D70Z Performance of Urinary Filtration, Intermittent, Less than 6 Hours Per Day (ICD-10-PCS; 2019-07-16)
PROC: 5A1D70Z Performance of Urinary Filtration, Intermittent, Less than 6 Hours Per Day (ICD-10-PCS; 2019-07-17)
PROC: 5A1D70Z Performance of Urinary Filtration, Intermittent, Less than 6 Hours Per Day (ICD-10-PCS; 2019-07-21)
PROC: 5A1D70Z Performance of Urinary Filtration, Intermittent, Less than 6 Hours Per Day (ICD-10-PCS; 2019-07-22)
PROC: 5A1D70Z Performance of Urinary Filtration, Intermittent, Less than 6 Hours Per Day (ICD-10-PCS; 2019-07-24)
PROC: 0KBP0ZZ Excision of Left Hip Muscle, Open Approach (ICD-10-PCS; 2019-07-25)
PROC: 5A1D70Z Performance of Urinary Filtration, Intermittent, Less than 6 Hours Per Day (ICD-10-PCS; 2019-07-26)
PROC: 5A1D70Z Performance of Urinary Filtration, Intermittent, Less than 6 Hours Per Day (ICD-10-PCS; 2019-07-27)
PROC: B548ZZA Ultrasonography of Superior Vena Cava, Guidance (ICD-10-PCS; 2019-07-28)
PROC: 0JH63XZ Insertion of Tunneled Vascular Access Device into Chest Subcutaneous Tissue and Fascia, Percutaneous Approach (ICD-10-PCS; 2019-07-28)
PROC: 02HV33Z Insertion of Infusion Device into Superior Vena Cava, Percutaneous Approach (ICD-10-PCS; 2019-07-28)
PROC: B5181ZA Fluoroscopy of Superior Vena Cava using Low Osmolar Contrast, Guidance (ICD-10-PCS; 2019-07-28)
PROC: 5A1D70Z Performance of Urinary Filtration, Intermittent, Less than 6 Hours Per Day (ICD-10-PCS; 2019-07-28)
PROC: 5A1D70Z Performance of Urinary Filtration, Intermittent, Less than 6 Hours Per Day (ICD-10-PCS; 2019-07-29)
PROC: 5A1D70Z Performance of Urinary Filtration, Intermittent, Less than 6 Hours Per Day (ICD-10-PCS; 2019-07-30)
PROC: 5A1D70Z Performance of Urinary Filtration, Intermittent, Less than 6 Hours Per Day (ICD-10-PCS; 2019-07-31)
PROC: 5A1D70Z Performance of Urinary Filtration, Intermittent, Less than 6 Hours Per Day (ICD-10-PCS; 2019-08-01)
PROC: 5A1D70Z Performance of Urinary Filtration, Intermittent, Less than 6 Hours Per Day (ICD-10-PCS; 2019-08-02)
PROC: 5A1D70Z Performance of Urinary Filtration, Intermittent, Less than 6 Hours Per Day (ICD-10-PCS; 2019-08-04)
PROC: 5A1D70Z Performance of Urinary Filtration, Intermittent, Less than 6 Hours Per Day (ICD-10-PCS; 2019-08-07)
PROC: 0KBN0ZZ Excision of Right Hip Muscle, Open Approach (ICD-10-PCS; 2019-08-08)
PROC: 5A1D70Z Performance of Urinary Filtration, Intermittent, Less than 6 Hours Per Day (ICD-10-PCS; 2019-08-09)
PROC: 02HV33Z Insertion of Infusion Device into Superior Vena Cava, Percutaneous Approach (ICD-10-PCS; 2019-08-10)
PROC: B548ZZA Ultrasonography of Superior Vena Cava, Guidance (ICD-10-PCS; 2019-08-10)
PROC: 5A1D70Z Performance of Urinary Filtration, Intermittent, Less than 6 Hours Per Day (ICD-10-PCS; 2019-08-10)
PROC: 5A1D70Z Performance of Urinary Filtration, Intermittent, Less than 6 Hours Per Day (ICD-10-PCS; 2019-08-11)
PROC: 5A1D70Z Performance of Urinary Filtration, Intermittent, Less than 6 Hours Per Day (ICD-10-PCS; 2019-08-14)
PROC: 5A1D70Z Performance of Urinary Filtration, Intermittent, Less than 6 Hours Per Day (ICD-10-PCS; 2019-08-16)
PROC: 5A1D70Z Performance of Urinary Filtration, Intermittent, Less than 6 Hours Per Day (ICD-10-PCS; 2019-08-18)
PROC: 5A1D70Z Performance of Urinary Filtration, Intermittent, Less than 6 Hours Per Day (ICD-10-PCS; 2019-08-20)
PROC: 5A1D70Z Performance of Urinary Filtration, Intermittent, Less than 6 Hours Per Day (ICD-10-PCS; 2019-08-21)
PROC: 5A1D70Z Performance of Urinary Filtration, Intermittent, Less than 6 Hours Per Day (ICD-10-PCS; 2019-08-23)
PROC: 5A1D70Z Performance of Urinary Filtration, Intermittent, Less than 6 Hours Per Day (ICD-10-PCS; 2019-08-26)
PROC: 5A1D70Z Performance of Urinary Filtration, Intermittent, Less than 6 Hours Per Day (ICD-10-PCS; 2019-08-29)
PROC: 5A1D70Z Performance of Urinary Filtration, Intermittent, Less than 6 Hours Per Day (ICD-10-PCS; 2019-08-31)
PROC: 5A1D70Z Performance of Urinary Filtration, Intermittent, Less than 6 Hours Per Day (ICD-10-PCS; 2019-09-02)
PROC: 5A1D70Z Performance of Urinary Filtration, Intermittent, Less than 6 Hours Per Day (ICD-10-PCS; 2019-09-04)
PROC: 5A1D70Z Performance of Urinary Filtration, Intermittent, Less than 6 Hours Per Day (ICD-10-PCS; 2019-09-05)
PROC: 5A1D70Z Performance of Urinary Filtration, Intermittent, Less than 6 Hours Per Day (ICD-10-PCS; 2019-09-07)
PROC: 5A1D70Z Performance of Urinary Filtration, Intermittent, Less than 6 Hours Per Day (ICD-10-PCS; 2019-09-09)
PROC: 5A1D70Z Performance of Urinary Filtration, Intermittent, Less than 6 Hours Per Day (ICD-10-PCS; 2019-09-11)
PROC: 5A1D70Z Performance of Urinary Filtration, Intermittent, Less than 6 Hours Per Day (ICD-10-PCS; 2019-09-12)
PROC: 5A1D70Z Performance of Urinary Filtration, Intermittent, Less than 6 Hours Per Day (ICD-10-PCS; 2019-09-14)
PROC: 5A1D70Z Performance of Urinary Filtration, Intermittent, Less than 6 Hours Per Day (ICD-10-PCS; 2019-09-16)
PROC: 5A1D70Z Performance of Urinary Filtration, Intermittent, Less than 6 Hours Per Day (ICD-10-PCS; 2019-09-18)
PROC: 5A1D70Z Performance of Urinary Filtration, Intermittent, Less than 6 Hours Per Day (ICD-10-PCS; 2019-09-19)
PROC: 5A1D70Z Performance of Urinary Filtration, Intermittent, Less than 6 Hours Per Day (ICD-10-PCS; 2019-09-21)
PROC: 5A1D70Z Performance of Urinary Filtration, Intermittent, Less than 6 Hours Per Day (ICD-10-PCS; 2019-09-23)
PROC: 5A1D70Z Performance of Urinary Filtration, Intermittent, Less than 6 Hours Per Day (ICD-10-PCS; 2019-09-25)
PROC: 5A1D70Z Performance of Urinary Filtration, Intermittent, Less than 6 Hours Per Day (ICD-10-PCS; 2019-09-26)
PROC: 5A1D70Z Performance of Urinary Filtration, Intermittent, Less than 6 Hours Per Day (ICD-10-PCS; 2019-09-28)
PROC: 5A1D70Z Performance of Urinary Filtration, Intermittent, Less than 6 Hours Per Day (ICD-10-PCS; 2019-09-30)
PROC: 5A1D70Z Performance of Urinary Filtration, Intermittent, Less than 6 Hours Per Day (ICD-10-PCS; 2019-10-02)
PROC: 5A1D70Z Performance of Urinary Filtration, Intermittent, Less than 6 Hours Per Day (ICD-10-PCS; 2019-10-03)
PROC: 5A1D70Z Performance of Urinary Filtration, Intermittent, Less than 6 Hours Per Day (ICD-10-PCS; 2019-10-05)
PROC: B548ZZA Ultrasonography of Superior Vena Cava, Guidance (ICD-10-PCS; 2019-10-06)
PROC: 02HV33Z Insertion of Infusion Device into Superior Vena Cava, Percutaneous Approach (ICD-10-PCS; 2019-10-06)
PROC: 5A1D70Z Performance of Urinary Filtration, Intermittent, Less than 6 Hours Per Day (ICD-10-PCS; 2019-10-07)
PROC: 5A1D70Z Performance of Urinary Filtration, Intermittent, Less than 6 Hours Per Day (ICD-10-PCS; 2019-10-09)
PROC: 5A1D70Z Performance of Urinary Filtration, Intermittent, Less than 6 Hours Per Day (ICD-10-PCS; 2019-10-10)
PROC: 5A1D70Z Performance of Urinary Filtration, Intermittent, Less than 6 Hours Per Day (ICD-10-PCS; 2019-10-16)
PROC: 5A1D70Z Performance of Urinary Filtration, Intermittent, Less than 6 Hours Per Day (ICD-10-PCS; 2019-10-17)
PROC: 5A1D70Z Performance of Urinary Filtration, Intermittent, Less than 6 Hours Per Day (ICD-10-PCS; 2019-10-19)
PROC: 5A1D70Z Performance of Urinary Filtration, Intermittent, Less than 6 Hours Per Day (ICD-10-PCS; 2019-10-21)
PROC: 5A1D70Z Performance of Urinary Filtration, Intermittent, Less than 6 Hours Per Day (ICD-10-PCS; 2019-10-23)
PROC: 5A1D70Z Performance of Urinary Filtration, Intermittent, Less than 6 Hours Per Day (ICD-10-PCS; 2019-10-24)
PROC: 5A1D70Z Performance of Urinary Filtration, Intermittent, Less than 6 Hours Per Day (ICD-10-PCS; 2019-10-26)
PROC: 5A1D70Z Performance of Urinary Filtration, Intermittent, Less than 6 Hours Per Day (ICD-10-PCS; 2019-10-31)
PROC: 5A1D70Z Performance of Urinary Filtration, Intermittent, Less than 6 Hours Per Day (ICD-10-PCS; 2019-11-02)
PROC: 5A1D70Z Performance of Urinary Filtration, Intermittent, Less than 6 Hours Per Day (ICD-10-PCS; 2019-11-04)
PROC: 5A1D70Z Performance of Urinary Filtration, Intermittent, Less than 6 Hours Per Day (ICD-10-PCS; 2019-11-09)
PROC: 5A1D70Z Performance of Urinary Filtration, Intermittent, Less than 6 Hours Per Day (ICD-10-PCS; 2019-11-11)
PROC: 5A1D70Z Performance of Urinary Filtration, Intermittent, Less than 6 Hours Per Day (ICD-10-PCS; 2019-11-14)
PROC: 5A1D70Z Performance of Urinary Filtration, Intermittent, Less than 6 Hours Per Day (ICD-10-PCS; 2019-11-16)
PROC: 5A1D70Z Performance of Urinary Filtration, Intermittent, Less than 6 Hours Per Day (ICD-10-PCS; 2019-11-18)
PROC: 5A1D70Z Performance of Urinary Filtration, Intermittent, Less than 6 Hours Per Day (ICD-10-PCS; 2019-11-21)
PROC: 5A1D70Z Performance of Urinary Filtration, Intermittent, Less than 6 Hours Per Day (ICD-10-PCS; 2019-11-23)
PROC: 5A1D70Z Performance of Urinary Filtration, Intermittent, Less than 6 Hours Per Day (ICD-10-PCS; 2019-11-25)
PROC: 5A1D70Z Performance of Urinary Filtration, Intermittent, Less than 6 Hours Per Day (ICD-10-PCS; 2019-11-28)
PROC: 5A1D70Z Performance of Urinary Filtration, Intermittent, Less than 6 Hours Per Day (ICD-10-PCS; 2019-11-30)
PROC: 5A1D70Z Performance of Urinary Filtration, Intermittent, Less than 6 Hours Per Day (ICD-10-PCS; 2019-12-02)
PROC: 5A1D70Z Performance of Urinary Filtration, Intermittent, Less than 6 Hours Per Day (ICD-10-PCS; 2019-12-05)
PROC: 5A1D70Z Performance of Urinary Filtration, Intermittent, Less than 6 Hours Per Day (ICD-10-PCS; 2019-12-07)
PROC: 5A1D70Z Performance of Urinary Filtration, Intermittent, Less than 6 Hours Per Day (ICD-10-PCS; 2019-12-09)
PROC: 5A1D70Z Performance of Urinary Filtration, Intermittent, Less than 6 Hours Per Day (ICD-10-PCS; 2019-12-12)
PROC: 5A1D70Z Performance of Urinary Filtration, Intermittent, Less than 6 Hours Per Day (ICD-10-PCS; 2019-12-14)
PROC: 5A1D70Z Performance of Urinary Filtration, Intermittent, Less than 6 Hours Per Day (ICD-10-PCS; 2019-12-16)
PROC: 0T9B70Z Drainage of Bladder with Drainage Device, Via Natural or Artificial Opening (ICD-10-PCS; 2020-01-23)
PROC: 0TJ Urinary System, Inspection (ICD-10-PCS; 2020-01-23)
PROC: 0TJ Urinary System, Inspection (ICD-10-PCS; 2020-03-08)
PROC: 02PYX3Z Removal of Infusion Device from Great Vessel, External Approach (ICD-10-PCS; 2020-03-11)
PROC: 0T2BX0Z Change Drainage Device in Bladder, External Approach (ICD-10-PCS; 2020-05-13)
DX: A40.3 Sepsis due to Streptococcus pneumoniae (principal); I46.9 Cardiac arrest, cause unspecified; G62.81 Critical illness polyneuropathy; G93.1 Anoxic brain damage, not elsewhere classified; N17.0 Acute kidney failure with tubular necrosis; E43 Unspecified severe protein-calorie malnutrition; R65.21 Severe sepsis with septic shock; J15.20 Pneumonia due to staphylococcus, unspecified; J69.0 Pneumonitis due to inhalation of food and vomit; E11.10 Type 2 diabetes mellitus with ketoacidosis without coma; K31.84 Gastroparesis; L89.153 Pressure ulcer of sacral region, stage 3; L89.154 Pressure ulcer of sacral region, stage 4; J96.01 Acute respiratory failure with hypoxia; J15.5 Pneumonia due to Escherichia coli; G93.41 Metabolic encephalopathy; I13.2 Hypertensive heart and chronic kidney disease with heart failure and with stage 5 chronic kidney disease, or end stage renal disease; I27.29 Other secondary pulmonary hypertension; D69.6 Thrombocytopenia, unspecified; E87.4 Mixed disorder of acid-base balance; J13 Pneumonia due to Streptococcus pneumoniae; I47.1 Supraventricular tachycardia; I48.92 Unspecified atrial flutter; B37.49 Other urogenital candidiasis; I48.91 Unspecified atrial fibrillation; E27.40 Unspecified adrenocortical insufficiency; E66.2 Morbid (severe) obesity with alveolar hypoventilation; E83.51 Hypocalcemia; Z68.42 Body mass index [BMI] 45.0-49.9, adult; D63.1 Anemia in chronic kidney disease; E87.6 Hypokalemia; F17.200 Nicotine dependence, unspecified, uncomplicated; F32.9 Major depressive disorder, single episode, unspecified; F41.9 Anxiety disorder, unspecified; G89.4 Chronic pain syndrome; I42.9 Cardiomyopathy, unspecified; I82.613 Acute embolism and thrombosis of superficial veins of upper extremity, bilateral; I82.622 Acute embolism and thrombosis of deep veins of left upper extremity; J38.5 Laryngeal spasm; J90 Pleural effusion, not elsewhere classified; Z99.11 Dependence on respirator [ventilator] status; Z99.2 Dependence on renal dialysis; Z91.15 Patient's noncompliance with renal dialysis; Z86.718 Personal history of other venous thrombosis and embolism; Z83.3 Family history of diabetes mellitus; Z79.4 Long term (current) use of insulin; T88.4XXA Failed or difficult intubation, initial encounter; Y84.8 Other medical procedures as the cause of abnormal reaction of the patient, or of later complication, without mention of misadventure at the time of the procedure; T81.30XA Disruption of wound, unspecified, initial encounter; Z16.12 Extended spectrum beta lactamase (ESBL) resistance; Z16.19 Resistance to other specified beta lactam antibiotics; Z51.5 Encounter for palliative care; E11.22 Type 2 diabetes mellitus with diabetic chronic kidney disease; E11.43 Type 2 diabetes mellitus with diabetic autonomic (poly)neuropathy; E11.52 Type 2 diabetes mellitus with diabetic peripheral angiopathy with gangrene; E83.39 Other disorders of phosphorus metabolism; E11.69 Type 2 diabetes mellitus with other specified complication; E83.52 Hypercalcemia; H57.02 Anisocoria; I50.810 Right heart failure, unspecified; K56.0 Paralytic ileus; K75.81 Nonalcoholic steatohepatitis (NASH); K85.90 Acute pancreatitis without necrosis or infection, unspecified; L08.9 Local infection of the skin and subcutaneous tissue, unspecified; L89.152 Pressure ulcer of sacral region, stage 2; M46.28 Osteomyelitis of vertebra, sacral and sacrococcygeal region; M62.82 Rhabdomyolysis; N18.6 End stage renal disease; R13.10 Dysphagia, unspecified; R50.2 Drug induced fever; T17.890A Other foreign object in other parts of respiratory tract causing asphyxiation, initial encounter; L73.1 Pseudofolliculitis barbae; Z74.01 Bed confinement status; Z86.72 Personal history of thrombophlebitis; B96.20 Unspecified Escherichia coli [E. coli] as the cause of diseases classified elsewhere; I82.402 Acute embolism and thrombosis of unspecified deep veins of left lower extremity; K70.9 Alcoholic liver disease, unspecified; Z86.39 Personal history of other endocrine, nutritional and metabolic disease; F43.25 Adjustment disorder with mixed disturbance of emotions and conduct; D50.9 Iron deficiency anemia, unspecified; D62 Acute posthemorrhagic anemia; G82.20 Paraplegia, unspecified; J15.8 Pneumonia due to other specified bacteria; J95.851 Ventilator associated pneumonia; L02.416 Cutaneous abscess of left lower limb; L03.116 Cellulitis of left lower limb; Z20.828 Contact with and (suspected) exposure to other viral communicable diseases; Z93.1 Gastrostomy status; Z79.891 Long term (current) use of opiate analgesic; N32.89 Other specified disorders of bladder; N31.9 Neuromuscular dysfunction of bladder, unspecified; L97.909 Non-pressure chronic ulcer of unspecified part of unspecified lower leg with unspecified severity; F43.21 Adjustment disorder with depressed mood; T83.011A Breakdown (mechanical) of indwelling urethral catheter, initial encounter; Y84.6 Urinary catheterization as the cause of abnormal reaction of the patient, or of later complication, without mention of misadventure at the time of the procedure; Y92.238 Other place in hospital as the place of occurrence of the external cause; T82.41XA Breakdown (mechanical) of vascular dialysis catheter, initial encounter; Y83.8 Other surgical procedures as the cause of abnormal reaction of the patient, or of later complication, without mention of misadventure at the time of the procedure
CPT/HCPCS: J3490; S0020; 31502; 31622; 31624; 31635; 32555; 36415; 36556; 36558; 36573; 36589; 36600; 51102; 51710; 70551; 71045; 71250; 71260; 72148; 72195; 74018; 74176; 74177; 74230; 74250; 75984; 75989; 76700; 76705; 76770; 76937; 77001; 78315; 80048; 80053; 80061; 80069; 80202; 80307; 81001; 82040; 82150; 82247; 82248; 82306; 82310; 82330; 82436; 82533; 82550; 82565; 82570; 82575; 82607; 82728; 82803; 82962; 83036; 83540; 83550; 83605; 83615; 83690; 83735; 83930; 83935; 83970; 84075; 84100; 84132; 84133; 84134; 84145; 84300; 84443; 84478; 84484; 84550; 85014; 85018; 85025; 85045; 85520; 85610; 85651; 85730; 86022; 86140; 86704; 86705; 86706; 86803; 86850; 86900; 86923; 87015; 87040; 87070; 87075; 87076; 87077; 87081; 87086; 87102; 87106; 87116; 87184; 87186; 87205; 87206; 87340; 87633; 88112; 88305; 88307; 88312; 90686; 90935; 92950; 93005; 93306; 93970; 94002; 94003; 94640; 94667; 94668; 94690; 99156; 99157; B4087; C1725; C1894; G0378; J0131; J0171; J0295; J0610; J0690; J0696; J0697; J0714; J0744; J0878; J0881; J1100; J1170; J1335; J1644; J1650; J1756; J1815; J1885; J1940; J2020; J2185; J2248; J2250; J2405; J2543; J2704; J2710; J2997; J3010; J3370; J3475; J3480; J7070; J7608; J7613; P9045; P9047; Q0169; Q9958; Q9966; Q9967; A9503; A9575; C1750; C1751; C1769; C9113; C9898; J0282; J0330; J1200; J1450; J1642; J1720; J2060; J2270; J2310; J2370; J2430; J2765; J3420; J7030; J7040; J7050; J7060; P9016; U0001-CS

== ENCOUNTER 2020-05-19 09:20 | Inpatient (IN) | payer MEDICAID, OTHER ==
[~2020-05-19] VITALS: Ht 177.8 cm; Wt 158.0 kg
[~2020-05-19 09:20] MED LIST: BUPR100T11 PO; DULO30CA2 PO; FENT1PAT77 TD; FERR-51 PO; GABA300C PO; MAGN400T50 PO; OXYC5TAB3 PO; PANT40TA5 PO
[2020-05-19] MEDS ORDERED: OXYcodone IR 5MG TABLET ONE ×2 (09:57→12:33)
[2020-05-19] MEDS ORDERED: OXYcodone IR 5MG TABLET PO ONE (10:00)
[2020-05-19] MEDS ORDERED: OXYcodone/APAP 10/325MG TABLET PO ONE (10:00)
[2020-05-19 10:03] LABS: MEAN CORPUSCULAR HEMOGLOBIN 27.6 pg (27.5-34.5); MEAN CORPUSCULAR HGB CONC 33.2 g/dL (33.2-36.2); MEAN CORPUSCULAR VOLUME 83.2 fL (81-97); MEAN PLATELET VOLUME 7.7 fL (7.4-10.4); PLATELET COUNT 369 x10^3/uL (130-400); RED BLOOD COUNT 3.89 x10^6/uL (4.38-5.82); RED CELL DISTRIBUTION WIDTH 18.1 % (9.4-14.8)
[2020-05-19 10:08] LABS: ALBUMIN 2.6 g/dL (3.4-5.0); ANION GAP 7 mmol/L (5-15); CALCIUM 9.4 mg/dL (8.5-10.1); CHLORIDE 110 mmol/L (98-107); CREATININE 1.56 mg/dL (0.7-1.3)
[2020-05-19 10:20] LABS: BASOPHILS # (AUTO) 0.03 x10^3/uL (0-0.1); BASOPHILS % (AUTO) 0 % (0-1); EOSINOPHILS # (AUTO) 0.32 x10^3/uL (0-0.4); EOSINOPHILS % (AUTO) 2 % (1-7); LYMPHOCYTES # (AUTO) 1.85 x10^3/uL (1-3.4); LYMPHOCYTES % (AUTO) 13 % (22-44); MD SCAN; MONOCYTES % (AUTO) 5 % (2-9); NEUTROPHILS # (AUTO) 11.27 x10^3/uL (1.8-6.8); NEUTROPHILS % (AUTO) 80 % (42-75)
[2020-05-19 10:36] LABS: MICROSCOPIC INDICATED
[2020-05-19] MEDS ORDERED: FLUCONAZOLE 100 MG TABLET ONE (10:56)
[2020-05-19] MEDS ORDERED: CEFEPIME 2 GM in DEXTROSE 5% 100 ML IV ONE (11:00)
[2020-05-19] MEDS ORDERED: FLUCONAZOLE 100 MG TABLET PO ONE (11:00)
[2020-05-19] MEDS: FENTANYL 75 MCG PATCH TD SCH (12:00)
--- NOTE | 2020-05-19 12:00 | NUR ---
PT LYING SUPINE. EDUCATED PT TO SHIFT WEIGHT FROM SIDE TO SIDE TO RELIEVE PRESSURE.
[2020-05-19] MEDS ORDERED: OXYcodone IR 5MG TABLET PO STA (12:27)
[2020-05-19] MEDS ORDERED: FENTANYL 75 MCG PATCH TD SCH ×2 (12:30→19:30)
[2020-05-19] MEDS ORDERED: FENTANYL 75 MCG PATCH TD ONE (13:00)
--- NOTE | 2020-05-19 13:30 | NUR ---
02 REMOVED TO ASSESS RA SAT.
--- NOTE | 2020-05-19 13:40 | NUR ---
RA SAT 75-88%. PT PLACED BACK ON 2L O2 AND PROVIDER NOTIFIED.
--- NOTE | 2020-05-19 15:00 | NUR ---
PT ROLLED TO R SIDE, PILLOWS FOR SUPPORT.
[2020-05-19] MEDS ORDERED: OMNIPAQUE 350 MG/ML, 100ML BOTTLE ONE (16:08)
--- NOTE | 2020-05-19 16:56 | NUR ---
PT ROLLED TO L SIDE, PILLOWS FOR SUPPORT.
[2020-05-19] MEDS: FERROUS SULFATE 325 MG TABLET PO SCH (19:55)
[2020-05-19] MEDS: OXYcodone IR 5MG TABLET PO PRN (19:55)
[2020-05-19] MEDS: GABAPENTIN 300 MG CAPSULE PO SCH (19:55)
[2020-05-19 20:00] VITALS: BP 127/87
[2020-05-19] MEDS ORDERED: ACETAMINOPHEN 325 MG TABLET PO PRN (20:00)
[2020-05-19] MEDS ORDERED: BISACODYL 10 MG SUPP PR PRN (20:00)
[2020-05-19] MEDS ORDERED: POLYETHYLENE GLYCOL 17 GM PACKET PO PRN (20:00)
[2020-05-19] MEDS ORDERED: ONDANSETRON 2MG/ML, 2ML IVPush PRN (20:00)
[2020-05-19] MEDS: HEPARIN 5,000 UNITS/ML, 1ML SQ SCH (20:50)
[2020-05-19] MEDS: PIPERACILLIN/TAZO/PMX 3.375GM 50 ML IV SCH (20:50)
[2020-05-19] MEDS: BUPROPION 100 MG TABLET PO SCH (20:50)
[2020-05-19] MEDS ORDERED: PHARMACOKINETIC MONITORING MC PRN (22:30)
[2020-05-19] MEDS ORDERED: GENTAMICIN PER PHARMACY MC PRN (22:30)
[2020-05-19] MEDS ORDERED: GENTAMICIN 120 MG in SODIUM CHLORIDE 0.9% 50 ML IV SCH (22:30)
[2020-05-19] MEDS ORDERED: PHARMACOKINETIC CONSULTATION MC ONE (22:30)
[2020-05-20 00:30] VITALS: BP 111/70
[2020-05-20] MEDS: OXYcodone IR 5MG TABLET PO PRN ×5 (03:42→23:54)
[2020-05-20] MEDS: PIPERACILLIN/TAZO/PMX 3.375GM 50 ML IV SCH ×3 (03:42→19:44)
[2020-05-20] MEDS: HEPARIN 5,000 UNITS/ML, 1ML SQ SCH ×3 (03:43→19:44)
[2020-05-20] MEDS: HYDROmorphone 2 MG/ML, 1ML IVPush PRN ×3 (04:58→15:48)
[2020-05-20] MEDS: INSULIN LISPRO 100 UNITS/ML, PEN SQ-INSULIN SCH ×4 (07:00→21:00)
[2020-05-20 07:41] VITALS: BP 108/71
[2020-05-20] MEDS: MAGNESIUM OXIDE 400 MG TABLET PO SCH (07:51)
[2020-05-20] MEDS: BUPROPION 100 MG TABLET PO SCH ×2 (07:52→11:40)
[2020-05-20] MEDS: PANTOPRAZOLE 40MG TABLET PO SCH (07:52)
[2020-05-20] MEDS: SENNA/DOCUSATE TABLET PO SCH (07:52)
[2020-05-20] MEDS: GABAPENTIN 300 MG CAPSULE PO SCH ×3 (07:52→21:23)
[2020-05-20] MEDS: DULOXETINE 30 MG CAPSULE.DR PO SCH (07:52)
[2020-05-20 08:44] LABS: MEAN CORPUSCULAR HEMOGLOBIN 27.5 pg (27.5-34.5); MEAN CORPUSCULAR HGB CONC 32.5 g/dL (33.2-36.2); MEAN CORPUSCULAR VOLUME 84.4 fL (81-97); MEAN PLATELET VOLUME 7.8 fL (7.4-10.4); PLATELET COUNT 357 x10^3/uL (130-400); RED BLOOD COUNT 4.01 x10^6/uL (4.38-5.82); RED CELL DISTRIBUTION WIDTH 18.2 % (9.4-14.8)
[2020-05-20 08:52] LABS: ALBUMIN 2.6 g/dL (3.4-5.0); ANION GAP 6 mmol/L (5-15); CALCIUM 9.8 mg/dL (8.5-10.1); CHLORIDE 108 mmol/L (98-107)
[2020-05-20 08:55] LABS: ALANINE AMINOTRANSFERASE 23 U/L (12-78); ALKALINE PHOSPHATASE 129 U/L (45-117); BILIRUBIN,TOTAL 0.6 mg/dL (0.2-1.0); CREATININE 1.98 mg/dL (0.7-1.3); TOTAL PROTEIN 8.1 g/dL (6.4-8.2)
[2020-05-20 09:28] LABS: BASOPHILS # (AUTO) 0.11 x10^3/uL (0-0.1); BASOPHILS % (AUTO) 1 % (0-1); EOSINOPHILS % (AUTO) 3 % (1-7); LYMPHOCYTES # (AUTO) 1.94 x10^3/uL (1-3.4); LYMPHOCYTES % (AUTO) 16 % (22-44); MD SCAN; MONOCYTES # (AUTO) 0.85 x10^3/uL (0.2-0.8); MONOCYTES % (AUTO) 7 % (2-9); NEUTROPHILS # (AUTO) 8.69 x10^3/uL (1.8-6.8); NEUTROPHILS % (AUTO) 73 % (42-75)
[2020-05-20] MEDS ORDERED: LIDOCAINE 1%, 10ML ONE (10:52)
[2020-05-20 12:40] VITALS: BP 105/71
[2020-05-20 19:55] VITALS: BP 107/68
[2020-05-21 01:22] VITALS: BP 119/70
[2020-05-21] MEDS: HYDROmorphone 2 MG/ML, 1ML IVPush PRN ×2 (03:03→14:17)
[2020-05-21] MEDS: HEPARIN 5,000 UNITS/ML, 1ML SQ SCH ×3 (04:00→19:24)
[2020-05-21] MEDS: PIPERACILLIN/TAZO/PMX 3.375GM 50 ML IV SCH ×3 (04:31→19:24)
[2020-05-21 05:54] LABS: BASOPHILS # (AUTO) 0.05 x10^3/uL (0-0.1); BASOPHILS % (AUTO) 0 % (0-1); EOSINOPHILS # (AUTO) 0.28 x10^3/uL (0-0.4); EOSINOPHILS % (AUTO) 3 % (1-7); LYMPHOCYTES # (AUTO) 1.85 x10^3/uL (1-3.4); LYMPHOCYTES % (AUTO) 17 % (22-44); MD NO; MEAN CORPUSCULAR HEMOGLOBIN 27.2 pg (27.5-34.5); MEAN CORPUSCULAR HGB CONC 32.5 g/dL (33.2-36.2); MEAN CORPUSCULAR VOLUME 83.6 fL (81-97); MEAN PLATELET VOLUME 7.9 fL (7.4-10.4); MONOCYTES # (AUTO) 0.75 x10^3/uL (0.2-0.8); MONOCYTES % (AUTO) 7 % (2-9); NEUTROPHILS # (AUTO) 8.06 x10^3/uL (1.8-6.8); NEUTROPHILS % (AUTO) 73 % (42-75); PLATELET COUNT 330 x10^3/uL (130-400); RED BLOOD COUNT 3.55 x10^6/uL (4.38-5.82); RED CELL DISTRIBUTION WIDTH 17.2 % (9.4-14.8)
[2020-05-21 06:00] LABS: ALANINE AMINOTRANSFERASE 20 U/L (12-78); ALBUMIN 2.4 g/dL (3.4-5.0); ANION GAP 8 mmol/L (5-15); CALCIUM 9.2 mg/dL (8.5-10.1); CHLORIDE 108 mmol/L (98-107); CREATININE 1.98 mg/dL (0.7-1.3)
[2020-05-21 06:02] LABS: ALKALINE PHOSPHATASE 123 U/L (45-117); BILIRUBIN,TOTAL 0.3 mg/dL (0.2-1.0); TOTAL PROTEIN 7.3 g/dL (6.4-8.2)
[2020-05-21] MEDS: OXYcodone IR 5MG TABLET PO PRN ×2 (06:23→20:33)
[2020-05-21 06:30] VITALS: BP 112/75
[2020-05-21 06:35] LABS: SEDIMENTATION RATE > 120 mm/hr (0-10)
[2020-05-21] MEDS: INSULIN LISPRO 100 UNITS/ML, PEN SQ-INSULIN SCH ×4 (07:00→19:30)
[2020-05-21] MEDS: SENNA/DOCUSATE TABLET PO SCH (07:51)
[2020-05-21] MEDS: BUPROPION 100 MG TABLET PO SCH ×2 (07:51→11:28)
[2020-05-21] MEDS: MAGNESIUM OXIDE 400 MG TABLET PO SCH (07:51)
[2020-05-21] MEDS: PANTOPRAZOLE 40MG TABLET PO SCH (07:51)
[2020-05-21] MEDS: DULOXETINE 30 MG CAPSULE.DR PO SCH (07:51)
[2020-05-21] MEDS: GABAPENTIN 300 MG CAPSULE PO SCH ×3 (07:51→21:31)
[2020-05-21 12:08] LABS: MICROSCOPIC INDICATED
[2020-05-21 12:23] VITALS: BP 114/78
[2020-05-21] MEDS: FERROUS SULFATE 325 MG TABLET PO SCH (19:24)
[2020-05-21 19:44] VITALS: BP 125/80
[2020-05-22 00:09] VITALS: BP 132/84
[2020-05-22] MEDS: OXYcodone IR 5MG TABLET PO PRN ×3 (01:30→18:34)
[2020-05-22] MEDS: HEPARIN 5,000 UNITS/ML, 1ML SQ SCH ×2 (04:00→12:29)
[2020-05-22] MEDS: PIPERACILLIN/TAZO/PMX 3.375GM 50 ML IV SCH ×2 (04:12→12:27)
[2020-05-22 06:37] VITALS: BP 112/77
[2020-05-22] MEDS: INSULIN LISPRO 100 UNITS/ML, PEN SQ-INSULIN SCH ×3 (07:00→16:00)
[2020-05-22] MEDS: SENNA/DOCUSATE TABLET PO SCH (07:25)
[2020-05-22] MEDS: GABAPENTIN 300 MG CAPSULE PO SCH ×2 (07:25→16:06)
[2020-05-22] MEDS: DULOXETINE 30 MG CAPSULE.DR PO SCH (07:26)
[2020-05-22] MEDS: BUPROPION 100 MG TABLET PO SCH ×2 (07:26→12:30)
[2020-05-22] MEDS: MAGNESIUM OXIDE 400 MG TABLET PO SCH (07:26)
[2020-05-22] MEDS: PANTOPRAZOLE 40MG TABLET PO SCH (07:26)
[2020-05-22] MEDS ORDERED: FENTANYL REMOVE PATCH NOTE XX SCH (12:00)
[2020-05-22] MEDS: FENTANYL 75 MCG PATCH TD SCH (12:29)
[2020-05-22 13:07] VITALS: BP 124/84
[2020-05-22] MEDS ORDERED: CIPR500T87 PO (14:40)
[2020-05-22] MEDS: HYDROmorphone 2 MG/ML, 1ML IVPush PRN (16:07)
== END 2020-05-22 19:40 | disposition home or self-care (01) | DRG 720 ==
LOC: ED 09:36 → OBSVTOIN 17:25 → INTOOBSV 17:25 → EDIP 17:25 → 3N 18:31 → INTOOBSV 05-20 12:54 → OBSVTOIN 05-20 12:54 → 3N 05-20 22:22
PROVIDERS: ADMIT Internal Medicine; ATTEND Internal Medicine
PROC: 0W9B3ZZ Drainage of Left Pleural Cavity, Percutaneous Approach (ICD-10-PCS; principal; 2020-05-20)
DX: A41.9 Sepsis, unspecified organism (principal); J96.01 Acute respiratory failure with hypoxia; Z99.11 Dependence on respirator [ventilator] status; J90 Pleural effusion, not elsewhere classified; L89.154 Pressure ulcer of sacral region, stage 4; R53.2 Functional quadriplegia; Z93.0 Tracheostomy status; G89.29 Other chronic pain; F32.9 Major depressive disorder, single episode, unspecified; E66.01 Morbid (severe) obesity due to excess calories; B96.1 Klebsiella pneumoniae [K. pneumoniae] as the cause of diseases classified elsewhere; F11.23 Opioid dependence with withdrawal; I12.9 Hypertensive chronic kidney disease with stage 1 through stage 4 chronic kidney disease, or unspecified chronic kidney disease; E11.69 Type 2 diabetes mellitus with other specified complication; M86.8X8 Other osteomyelitis, other site; E11.22 Type 2 diabetes mellitus with diabetic chronic kidney disease; E11.42 Type 2 diabetes mellitus with diabetic polyneuropathy; N39.0 Urinary tract infection, site not specified; R62.7 Adult failure to thrive; N18.3 Chronic kidney disease, stage 3 (moderate); Z91.19 Patient's noncompliance with other medical treatment and regimen; Z79.899 Other long term (current) drug therapy; Z93.59 Other cystostomy status
CPT/HCPCS: 32555; 36415; 71045; 71275; 80048; 80053; 81001; 82040; 82945; 82962; 83605; 83615; 84157; 85025; 85651; 87040; 87070; 87077; 87086; 87106; 87186; 87205; 89051; 96365; G0378; J1170; J1644; J2543; Q9967

== ENCOUNTER 2020-06-18 23:05 | Emergency (ER) | payer MEDICAID ==
[~2020-06-18] VITALS: Ht 185.4 cm; Wt 163.6 kg
[~2020-06-18 23:05] MED LIST changes: +CIPR500T87 PO
[2020-06-18] MEDS ORDERED: HYDROmorphone 1 MG/ML, 1ML INJ ONE (23:49)
[2020-06-18] MEDS ORDERED: METHOCARBAMOL 750 MG TABLET ONE (23:49)
[2020-06-19] MEDS ORDERED: METHOCARBAMOL 750 MG TABLET PO ONE
[2020-06-19] MEDS ORDERED: HYDROmorphone 1 MG/ML, 1ML INJ IM ONE
[2020-06-19 00:40] VITALS: BP 127/76
== END 2020-06-19 01:31 | disposition home or self-care (01) ==
LOC: ED 23:09
DX: M53.3 Sacrococcygeal disorders, not elsewhere classified (principal); G89.29 Other chronic pain; Z76.0 Encounter for issue of repeat prescription; R00.0 Tachycardia, unspecified; R94.31 Abnormal electrocardiogram [ECG] [EKG]; I10 Essential (primary) hypertension; E11.9 Type 2 diabetes mellitus without complications; F17.210 Nicotine dependence, cigarettes, uncomplicated
CPT/HCPCS: 93005; 96372; 99283; 99406; J1170

== ENCOUNTER 2020-07-01 15:05 | Emergency (ER) | payer MEDICAID ==
[~2020-07-01] VITALS: Ht 185.4 cm; Wt 155.9 kg
--- NOTE | 2020-07-01 15:30 | NUR ---
LATE ENTRY: PT BIB EMS FOR SUPRAPUBIC CATHETER PAIN. PT IS OBESE AND UNABLE TO MOVE. PT DENIES FEVERS BUT REPORTS PAIN AND THAT HIS CATHETER HAS NOT BEEN DRAINING.
[2020-07-01 16:24] LABS: BASOPHILS # (AUTO) 0.05 x10^3/uL (0-0.1); BASOPHILS % (AUTO) 0 % (0-1); EOSINOPHILS # (AUTO) 0.43 x10^3/uL (0-0.4); EOSINOPHILS % (AUTO) 4 % (1-7); LYMPHOCYTES # (AUTO) 1.84 x10^3/uL (1-3.4); LYMPHOCYTES % (AUTO) 17 % (22-44); MD NO; MEAN CORPUSCULAR HEMOGLOBIN 27.8 pg (27.5-34.5); MEAN CORPUSCULAR HGB CONC 32.7 g/dL (33.2-36.2); MEAN CORPUSCULAR VOLUME 84.9 fL (81-97); MEAN PLATELET VOLUME 8.2 fL (7.4-10.4); MONOCYTES # (AUTO) 0.52 x10^3/uL (0.2-0.8); MONOCYTES % (AUTO) 5 % (2-9); NEUTROPHILS # (AUTO) 8.26 x10^3/uL (1.8-6.8); NEUTROPHILS % (AUTO) 75 % (42-75); PLATELET COUNT 375 x10^3/uL (130-400); RED BLOOD COUNT 4.62 x10^6/uL (4.38-5.82); RED CELL DISTRIBUTION WIDTH 16.1 % (9.4-14.8)
[2020-07-01 16:35] LABS: ANION GAP 9 mmol/L (5-15); CALCIUM 10.2 mg/dL (8.5-10.1); CHLORIDE 109 mmol/L (98-107)
[2020-07-01 16:36] LABS: CREATININE 2.11 mg/dL (0.7-1.3)
[2020-07-01] MEDS ORDERED: ONDANSETRON 2MG/ML, 2ML ONE (17:15)
[2020-07-01] MEDS ORDERED: HYDROmorphone 1 MG/ML, 1ML INJ ONE ×2 (17:15→20:33)
[2020-07-01] MEDS ORDERED: ONDANSETRON 2MG/ML, 2ML IVPush ONE ×2 (17:30→20:30)
[2020-07-01] MEDS ORDERED: HYDROmorphone 1 MG/ML, 1ML INJ IV ONE ×2 (17:30→20:30)
[2020-07-01] MEDS ORDERED: MORPHINE SULFATE 4 MG/ML, 1ML IVPush ONE (17:30)
--- NOTE | 2020-07-01 18:30 | NUR ---
WANTED THE SUPRAPUBIC CATHETER REMOVED. PA BEDSIDE TO REMOVE. PA REPORTS THE CATHETER WOULD NOT SLIDE OUT AND WAS CAUSING THE PT TOO MUCH PAIN.
--- NOTE | 2020-07-01 19:30 | NUR ---
INSERTED DUQUE CATHETER PER MD INSTRUCTIONS
[2020-07-01 19:38] LABS: MICROSCOPIC AUTO
[2020-07-01] MEDS ORDERED: FENTANYL PF 100 MCG/2ML ONE (20:51)
--- NOTE | 2020-07-01 21:12 | NUR ---
BESIDE TO REMOVE AND REPLACE SUPRAPUBIC CATHETER
[2020-07-01 21:24] VITALS: BP 121/68
--- NOTE | 2020-07-01 21:24 | NUR ---
PT REPORTS THAT HE FEELS MUCH BETTER AFTER REPLACING CATHETER. PT PLACED ON 2 LITERS
[2020-07-01] MEDS ORDERED: CEFTRIAXONE PMX 2GM/50ML 50 ML ONE (21:34)
--- NOTE | 2020-07-01 21:58 | NUR ---
DCd DUQUE CATHETER VT MD ORDER. THE SUPRAPUBIC IS DRAINING PROPERLY.
[2020-07-01] MEDS ORDERED: CEFTRIAXONE PMX 2GM/50ML 50 ML IV SCH (22:00)
[2020-07-01] MEDS ORDERED: FENTANYL PF 100 MCG/2ML IVPush ONE (22:00)
--- NOTE | 2020-07-01 22:57 | NUR ---
ZHENG TO BE TRANSPORTED HOME WITH [facility]
--- NOTE | 2020-07-01 23:14 | NUR ---
[facility] ETA [id number]
== END 2020-07-01 23:42 | disposition home or self-care (01) ==
LOC: ED 22:31
DX: N30.00 Acute cystitis without hematuria (principal); M79.3 Panniculitis, unspecified; I10 Essential (primary) hypertension; E11.9 Type 2 diabetes mellitus without complications; F17.210 Nicotine dependence, cigarettes, uncomplicated
CPT/HCPCS: 36415; 51702; 80048; 81001; 85025; 87086; 96374; 96375; 96376; 99284; J0696; J1170; J2405; J3010; 87077

== ENCOUNTER 2020-07-04 09:12 | Inpatient (IN) | payer MEDICAID ==
[~2020-07-04] VITALS: Ht 185.4 cm; Wt 122.6 kg
--- NOTE | 2020-07-04 09:24 | NUR ---
PATIENT BIB [facility] WITH C/O 10/10 SUPRAPUBIC CATHETER PAIN. PATIENT HAD HIS SUPRAPUBIC CATHETER REPLACED 3 DAYS AGO AND WAS NOTED TO HAVE AN INFECTION AT THE SITE OF INSERTION. PATIENT WAS GIVEN CEFDINIR, WHICH HE REPORTS HE HAS BEEN TAKING THE LAST 3 DAYS, BUT PAIN LEVEL HAS GOTTEN PROGRESSIVELY WORSE TO THE POINT WHERE PATIENT REPORTS "I COULDN'T HANDLE IT ANYMORE." PATIENT WAS GIVEN 200 M[address] [place] EN ROUTE AND IT BROUGHT PAIN LEVEL DOWN TO 9/10 SUPRAPUBIC CATHETER PAIN. SITE IS RED WITH MINIMAL DRAINAGE NOTED. TEMPERATURE IS 97.6F. BP 118/72, HR IN THE 110s.
--- NOTE | 2020-07-04 10:01 | NUR ---
TITI Vu at bedside to evaluate wounds
[2020-07-04 10:24] LABS: MEAN CORPUSCULAR HEMOGLOBIN 27.8 pg (27.5-34.5); MEAN CORPUSCULAR HGB CONC 32.5 g/dL (33.2-36.2); MEAN CORPUSCULAR VOLUME 85.6 fL (81-97); PLATELET COUNT 363 x10^3/uL (130-400); RED BLOOD COUNT 4.61 x10^6/uL (4.38-5.82); RED CELL DISTRIBUTION WIDTH 16.4 % (9.4-14.8)
[2020-07-04 10:35] LABS: ALANINE AMINOTRANSFERASE 17 U/L (12-78); ALBUMIN 2.9 g/dL (3.4-5.0); ANION GAP 8 mmol/L (5-15); CALCIUM 9.9 mg/dL (8.5-10.1); CHLORIDE 110 mmol/L (98-107); CREATININE 1.82 mg/dL (0.7-1.3)
[2020-07-04 10:37] LABS: ALKALINE PHOSPHATASE 97 U/L (45-117); BILIRUBIN,TOTAL 0.4 mg/dL (0.2-1.0); TOTAL PROTEIN 8.4 g/dL (6.4-8.2)
[2020-07-04 10:38] LABS: BASOPHILS # (AUTO) 0.05 x10^3/uL (0-0.1); BASOPHILS % (AUTO) 0 % (0-1); EOSINOPHILS # (AUTO) 0.44 x10^3/uL (0-0.4); EOSINOPHILS % (AUTO) 3 % (1-7); LYMPHOCYTES # (AUTO) 1.93 x10^3/uL (1-3.4); LYMPHOCYTES % (AUTO) 12 % (22-44); MD SCAN; MONOCYTES # (AUTO) 0.51 x10^3/uL (0.2-0.8); MONOCYTES % (AUTO) 3 % (2-9); NEUTROPHILS # (AUTO) 13.77 x10^3/uL (1.8-6.8); NEUTROPHILS % (AUTO) 83 % (42-75)
[2020-07-04] MEDS ORDERED: SODIUM CHLORIDE 0.9% 1,000ML IVBOLUS ONE (11:00)
--- NOTE | 2020-07-04 11:08 | NUR ---
PATIENT GONE TO CT.
[2020-07-04] MEDS ORDERED: ONDANSETRON 2MG/ML, 2ML IVPush ONE (11:30)
[2020-07-04] MEDS ORDERED: OMNIPAQUE 350 MG/ML, 100ML BOTTLE ONE (11:36)
[2020-07-04] MEDS ORDERED: HYDROmorphone 1 MG/ML, 1ML INJ ONE ×2 (11:41→14:14)
[2020-07-04] MEDS ORDERED: ONDANSETRON 2MG/ML, 2ML ONE (11:41)
--- NOTE | 2020-07-04 11:44 | NUR ---
PATIENT BACK FROM CT. PATIENT IS C/O 10/10 SUPRAPUBIC CATHETER AND PENIS PAIN. MEDICATED PER eMAR, 1 LITER BOLUS STARTED. LAB AT BEDSIDE DRAWING BLOOD CULTURES.
[2020-07-04] MEDS: HYDROmorphone 1 MG/ML, 1ML INJ IVPush PRN ×2 (11:46→14:18)
--- NOTE | 2020-07-04 12:56 | NUR ---
Pt resting in bed, call light in reach.
[2020-07-04] MEDS ORDERED: PIPERACILLIN/TAZO/PMX 4.5GM 100 ML IV ONE ×2 (14:00→15:00)
--- NOTE | 2020-07-04 14:30 | NUR ---
PATIENT RESTING IN GURNEY, DOZING OFF INTERMITTENTLY. RICARDO VALE. NO FURTHER NEEDS AT THIS TIME.
--- NOTE | 2020-07-04 15:06 | NUR ---
COVID SWAB COLLECTED AND WALKED TO LAB.
--- NOTE | 2020-07-04 15:06 | NUR ---
SBAR GIVEN TO LIZET RN 4NW FOR TRANSFER OF CARE.
[2020-07-04 15:49] VITALS: BP 117/81
[2020-07-04] MEDS: FENTANYL REMOVE PATCH NOTE XX SCH (16:29)
[2020-07-04] MEDS ORDERED: ACETAMINOPHEN 325 MG TABLET PO PRN (16:30)
[2020-07-04] MEDS ORDERED: IBUPROFEN 600 MG TABLET PO PRN (16:30)
[2020-07-04] MEDS ORDERED: ONDANSETRON ODT 4 MG PO PRN (16:30)
[2020-07-04] MEDS ORDERED: POLYETHYLENE GLYCOL 17 GM PACKET PO PRN (16:30)
[2020-07-04] MEDS ORDERED: MELATONIN 5 MG TABLET PO PRN (16:30)
[2020-07-04] MEDS ORDERED: DOCUSATE 100 MG CAPSULE PO PRN (16:30)
[2020-07-04] MEDS ORDERED: OXYcodone IR 5MG TABLET PO PRN (16:30)
[2020-07-04] MEDS ORDERED: LABETALOL 5MG/ML, 20ML IVPush PRN (16:30)
[2020-07-04] MEDS ORDERED: hydrALAzine 20 MG/ML, 1ML IVPush PRN (16:30)
[2020-07-04] MEDS: FERROUS SULFATE 325 MG TABLET PO SCH (16:54)
[2020-07-04] MEDS: OXYcodone IR 5MG TABLET PO PRN ×2 (16:55→20:58)
[2020-07-04] MEDS: BACLOFEN 10 MG TABLET PO PRN (16:57)
[2020-07-04] MEDS: HEPARIN 5,000 UNITS/ML, 1ML SQ SCH (16:57)
[2020-07-04] MEDS: FENTANYL 75 MCG PATCH TD SCH (18:07)
[2020-07-04 18:24] LABS: MICROSCOPIC INDICATED
[2020-07-04 19:49] VITALS: BP 104/71
[2020-07-04] MEDS: NYSTATIN TOPICAL POWDER 15GM TP SCH (20:10)
[2020-07-04] MEDS: PIPERACILLIN/TAZO/PMX 4.5GM 100 ML IV SCH (20:10)
[2020-07-04] MEDS: GABAPENTIN 300 MG CAPSULE PO SCH (20:10)
[2020-07-05] MEDS: HEPARIN 5,000 UNITS/ML, 1ML SQ SCH ×2 (00:38→08:13)
[2020-07-05] MEDS: OXYcodone IR 5MG TABLET PO PRN ×5 (02:11→21:12)
[2020-07-05] MEDS: PIPERACILLIN/TAZO/PMX 4.5GM 100 ML IV SCH ×4 (02:11→20:36)
[2020-07-05 02:34] VITALS: BP 111/73
[2020-07-05 08:00] VITALS: BP 103/71
[2020-07-05] MEDS ORDERED: BUPROPION 100 MG TABLET PO SCH (08:00)
[2020-07-05] MEDS: GABAPENTIN 300 MG CAPSULE PO SCH ×3 (08:13→20:37)
[2020-07-05] MEDS: SENNA/DOCUSATE TABLET PO SCH (08:13)
[2020-07-05] MEDS: DULOXETINE 30 MG CAPSULE.DR PO SCH (08:14)
[2020-07-05] MEDS: PANTOPRAZOLE 40MG TABLET PO SCH (08:14)
[2020-07-05] MEDS: MAGNESIUM OXIDE 400 MG TABLET PO SCH (08:14)
[2020-07-05] MEDS: NYSTATIN TOPICAL POWDER 15GM TP SCH ×2 (08:14→20:37)
[2020-07-05] MEDS: BACLOFEN 10 MG TABLET PO PRN (08:14)
[2020-07-05 10:38] LABS: MEAN CORPUSCULAR HEMOGLOBIN 27.1 pg (27.5-34.5); MEAN CORPUSCULAR HGB CONC 31.5 g/dL (33.2-36.2); MEAN CORPUSCULAR VOLUME 85.9 fL (81-97); MEAN PLATELET VOLUME 7.7 fL (7.4-10.4); PLATELET COUNT 355 x10^3/uL (130-400); RED BLOOD COUNT 4.49 x10^6/uL (4.38-5.82); RED CELL DISTRIBUTION WIDTH 16.4 % (9.4-14.8)
[2020-07-05 10:43] LABS: ANION GAP 8 mmol/L (5-15); CALCIUM 10.2 mg/dL (8.5-10.1); CHLORIDE 106 mmol/L (98-107); CREATININE 2.06 mg/dL (0.7-1.3)
[2020-07-05 10:55] LABS: BASOPHILS # (AUTO) 0.03 x10^3/uL (0-0.1); BASOPHILS % (AUTO) 0 % (0-1); EOSINOPHILS % (AUTO) 4 % (1-7); LYMPHOCYTES # (AUTO) 1.56 x10^3/uL (1-3.4); LYMPHOCYTES % (AUTO) 13 % (22-44); MD SCAN; MONOCYTES # (AUTO) 0.31 x10^3/uL (0.2-0.8); MONOCYTES % (AUTO) 3 % (2-9); NEUTROPHILS # (AUTO) 9.32 x10^3/uL (1.8-6.8); NEUTROPHILS % (AUTO) 80 % (42-75)
[2020-07-05 13:50] VITALS: BP 124/79
[2020-07-05] MEDS: POTASSIUM CHLORIDE 20 MEQ TAB.ER.PRT PO SCH (16:21)
[2020-07-05] MEDS: ENOXAPARIN 30 MG/0.3 ML SQ SCH (16:22)
[2020-07-05] MEDS: FUROSEMIDE 20 MG/2 ML IV SCH (16:22)
[2020-07-05 19:35] VITALS: BP 116/76
[2020-07-05] MEDS: BUPROPION 100 MG TABLET PO SCH (20:37)
[2020-07-06 00:34] VITALS: BP 125/95
[2020-07-06] MEDS: ENOXAPARIN 30 MG/0.3 ML SQ SCH ×2 (02:08→16:16)
[2020-07-06] MEDS: PIPERACILLIN/TAZO/PMX 4.5GM 100 ML IV SCH ×4 (02:09→20:42)
[2020-07-06] MEDS: OXYcodone IR 5MG TABLET PO PRN ×5 (02:10→20:42)
[2020-07-06 07:37] LABS: BASOPHILS # (AUTO) 0.04 x10^3/uL (0-0.1); BASOPHILS % (AUTO) 0 % (0-1); EOSINOPHILS # (AUTO) 0.49 x10^3/uL (0-0.4); EOSINOPHILS % (AUTO) 4 % (1-7); LYMPHOCYTES # (AUTO) 1.83 x10^3/uL (1-3.4); LYMPHOCYTES % (AUTO) 16 % (22-44); MD NO; MEAN CORPUSCULAR HEMOGLOBIN 27.4 pg (27.5-34.5); MEAN CORPUSCULAR VOLUME 85.3 fL (81-97); MEAN PLATELET VOLUME 7.6 fL (7.4-10.4); MONOCYTES # (AUTO) 0.55 x10^3/uL (0.2-0.8); MONOCYTES % (AUTO) 5 % (2-9); NEUTROPHILS # (AUTO) 8.31 x10^3/uL (1.8-6.8); NEUTROPHILS % (AUTO) 74 % (42-75); PLATELET COUNT 311 x10^3/uL (130-400); RED BLOOD COUNT 4.11 x10^6/uL (4.38-5.82)
[2020-07-06 07:49] LABS: ANION GAP 8 mmol/L (5-15); CHLORIDE 109 mmol/L (98-107)
[2020-07-06 07:51] VITALS: BP 138/86
[2020-07-06] MEDS: GABAPENTIN 300 MG CAPSULE PO SCH ×3 (08:19→20:42)
[2020-07-06] MEDS: BACLOFEN 10 MG TABLET PO PRN ×2 (08:19→16:15)
[2020-07-06] MEDS: PANTOPRAZOLE 40MG TABLET PO SCH (08:20)
[2020-07-06] MEDS: POTASSIUM CHLORIDE 20 MEQ TAB.ER.PRT PO SCH ×2 (08:20→16:15)
[2020-07-06] MEDS: DULOXETINE 30 MG CAPSULE.DR PO SCH (08:20)
[2020-07-06] MEDS: SENNA/DOCUSATE TABLET PO SCH (08:20)
[2020-07-06] MEDS: MAGNESIUM OXIDE 400 MG TABLET PO SCH (08:20)
[2020-07-06] MEDS: BUPROPION 100 MG TABLET PO SCH ×2 (08:20→20:42)
[2020-07-06] MEDS: FUROSEMIDE 20 MG/2 ML IV SCH ×2 (08:21→16:16)
[2020-07-06] MEDS: NYSTATIN TOPICAL POWDER 15GM TP SCH ×2 (08:21→20:43)
[2020-07-06 14:00] VITALS: BP 123/82
[2020-07-06] MEDS: FERROUS SULFATE 325 MG TABLET PO SCH (16:15)
[2020-07-06 19:08] VITALS: BP 126/80
[2020-07-07 00:07] VITALS: BP 121/82
[2020-07-07] MEDS: OXYcodone IR 5MG TABLET PO PRN ×4 (02:31→20:58)
[2020-07-07] MEDS: PIPERACILLIN/TAZO/PMX 4.5GM 100 ML IV SCH ×4 (02:31→20:51)
[2020-07-07] MEDS: ENOXAPARIN 30 MG/0.3 ML SQ SCH ×2 (03:44→15:52)
[2020-07-07 04:50] LABS: BASOPHILS # (AUTO) 0.06 x10^3/uL (0-0.1); BASOPHILS % (AUTO) 1 % (0-1); EOSINOPHILS # (AUTO) 0.51 x10^3/uL (0-0.4); EOSINOPHILS % (AUTO) 4 % (1-7); LYMPHOCYTES # (AUTO) 1.86 x10^3/uL (1-3.4); LYMPHOCYTES % (AUTO) 15 % (22-44); MD NO; MEAN CORPUSCULAR HEMOGLOBIN 27.3 pg (27.5-34.5); MEAN CORPUSCULAR HGB CONC 32.3 g/dL (33.2-36.2); MEAN CORPUSCULAR VOLUME 84.7 fL (81-97); MEAN PLATELET VOLUME 8.1 fL (7.4-10.4); MONOCYTES # (AUTO) 0.62 x10^3/uL (0.2-0.8); MONOCYTES % (AUTO) 5 % (2-9); NEUTROPHILS # (AUTO) 9.82 x10^3/uL (1.8-6.8); NEUTROPHILS % (AUTO) 76 % (42-75); PLATELET COUNT 334 x10^3/uL (130-400); RED BLOOD COUNT 4.11 x10^6/uL (4.38-5.82)
[2020-07-07 05:01] LABS: CHLORIDE 107 mmol/L (98-107)
[2020-07-07 05:09] LABS: ALANINE AMINOTRANSFERASE 13 U/L (12-78); ALBUMIN 2.8 g/dL (3.4-5.0); ALKALINE PHOSPHATASE 85 U/L (45-117); ANION GAP 8 mmol/L (5-15); BILIRUBIN,TOTAL 0.3 mg/dL (0.2-1.0); CALCIUM 9.1 mg/dL (8.5-10.1); CREATININE 2.01 mg/dL (0.7-1.3); TOTAL PROTEIN 7.9 g/dL (6.4-8.2)
[2020-07-07 06:20] VITALS: BP 114/76
[2020-07-07] MEDS: DULOXETINE 30 MG CAPSULE.DR PO SCH (09:50)
[2020-07-07] MEDS: BUPROPION 100 MG TABLET PO SCH ×2 (09:50→20:52)
[2020-07-07] MEDS: MAGNESIUM OXIDE 400 MG TABLET PO SCH (09:50)
[2020-07-07] MEDS: GABAPENTIN 300 MG CAPSULE PO SCH ×3 (09:50→20:52)
[2020-07-07] MEDS: POTASSIUM CHLORIDE 20 MEQ TAB.ER.PRT PO SCH ×2 (09:50→15:53)
[2020-07-07] MEDS: SENNA/DOCUSATE TABLET PO SCH (09:51)
[2020-07-07] MEDS: FUROSEMIDE 20 MG/2 ML IV SCH ×2 (09:51→15:53)
[2020-07-07] MEDS: NYSTATIN TOPICAL POWDER 15GM TP SCH ×2 (09:51→20:51)
[2020-07-07] MEDS: PANTOPRAZOLE 40MG TABLET PO SCH (11:02)
[2020-07-07 12:37] VITALS: BP 116/76
[2020-07-07] MEDS: FENTANYL 75 MCG PATCH TD SCH (15:57)
[2020-07-07] MEDS: FENTANYL REMOVE PATCH NOTE XX SCH (15:57)
[2020-07-07 19:31] VITALS: BP 117/79
[2020-07-08 01:52] VITALS: BP 129/79
[2020-07-08] MEDS: PIPERACILLIN/TAZO/PMX 4.5GM 100 ML IV SCH ×2 (02:20→08:43)
[2020-07-08] MEDS: OXYcodone IR 5MG TABLET PO PRN ×2 (02:20→15:00)
[2020-07-08] MEDS: ENOXAPARIN 30 MG/0.3 ML SQ SCH ×2 (03:50→14:48)
[2020-07-08 05:01] LABS: ANION GAP 8 mmol/L (5-15); BASOPHILS # (AUTO) 0.05 x10^3/uL (0-0.1); BASOPHILS % (AUTO) 0 % (0-1); CALCIUM 9.6 mg/dL (8.5-10.1); CHLORIDE 104 mmol/L (98-107); EOSINOPHILS # (AUTO) 0.58 x10^3/uL (0-0.4); EOSINOPHILS % (AUTO) 4 % (1-7); LYMPHOCYTES # (AUTO) 1.82 x10^3/uL (1-3.4); LYMPHOCYTES % (AUTO) 14 % (22-44); MD NO; MEAN CORPUSCULAR HEMOGLOBIN 27.6 pg (27.5-34.5); MEAN CORPUSCULAR HGB CONC 31.9 g/dL (33.2-36.2); MEAN CORPUSCULAR VOLUME 86.5 fL (81-97); MONOCYTES # (AUTO) 0.53 x10^3/uL (0.2-0.8); MONOCYTES % (AUTO) 4 % (2-9); NEUTROPHILS # (AUTO) 10.13 x10^3/uL (1.8-6.8); NEUTROPHILS % (AUTO) 77 % (42-75); PLATELET COUNT 340 x10^3/uL (130-400); RED CELL DISTRIBUTION WIDTH 16.2 % (9.4-14.8)
[2020-07-08 05:03] LABS: CREATININE 1.95 mg/dL (0.7-1.3)
[2020-07-08 07:07] VITALS: BP 118/78
[2020-07-08] MEDS: GABAPENTIN 300 MG CAPSULE PO SCH ×2 (08:43→14:47)
[2020-07-08] MEDS: PANTOPRAZOLE 40MG TABLET PO SCH (08:43)
[2020-07-08] MEDS: DULOXETINE 30 MG CAPSULE.DR PO SCH (08:43)
[2020-07-08] MEDS: BUPROPION 100 MG TABLET PO SCH (08:43)
[2020-07-08] MEDS: MAGNESIUM OXIDE 400 MG TABLET PO SCH (08:43)
[2020-07-08] MEDS: SENNA/DOCUSATE TABLET PO SCH (08:43)
[2020-07-08] MEDS: FUROSEMIDE 20 MG/2 ML IV SCH ×2 (08:43→16:40)
[2020-07-08] MEDS: POTASSIUM CHLORIDE 20 MEQ TAB.ER.PRT PO SCH ×2 (08:43→16:40)
[2020-07-08] MEDS: NYSTATIN TOPICAL POWDER 15GM TP SCH (08:47)
[2020-07-08] MEDS ORDERED: FENTANYL REMOVE PATCH NOTE XX SCH (10:00)
[2020-07-08] MEDS ORDERED: FENTANYL 75 MCG PATCH TD SCH (10:00)
[2020-07-08 13:01] VITALS: BP 131/86
[2020-07-08] MEDS ORDERED: LEVOFLOXACIN 750 MG TABLET PO SCH (14:00)
[2020-07-08] MEDS: FERROUS SULFATE 325 MG TABLET PO SCH (14:47)
[2020-07-08] MEDS ORDERED: LEVO750T26 PO (16:08)
[2020-07-08] MEDS ORDERED: OXYC5TAB3 PO (16:08)
[2020-07-08] MEDS ORDERED: FENT1PAT77 TD (16:08)
== END 2020-07-08 18:44 | disposition home or self-care (01) | DRG 139 ==
LOC: ED 09:23 → 4EST 14:05 → 3N 07-06 18:21
PROVIDERS: ADMIT Family Medicine; ATTEND Internal Medicine
DX: J18.9 Pneumonia, unspecified organism (principal); N39.0 Urinary tract infection, site not specified; B96.5 Pseudomonas (aeruginosa) (mallei) (pseudomallei) as the cause of diseases classified elsewhere; E66.01 Morbid (severe) obesity due to excess calories; E87.70 Fluid overload, unspecified; E11.22 Type 2 diabetes mellitus with diabetic chronic kidney disease; F43.21 Adjustment disorder with depressed mood; G89.29 Other chronic pain; I13.10 Hypertensive heart and chronic kidney disease without heart failure, with stage 1 through stage 4 chronic kidney disease, or unspecified chronic kidney disease; J96.01 Acute respiratory failure with hypoxia; K21.9 Gastro-esophageal reflux disease without esophagitis; L89.152 Pressure ulcer of sacral region, stage 2; E11.42 Type 2 diabetes mellitus with diabetic polyneuropathy; J91.8 Pleural effusion in other conditions classified elsewhere; N18.3 Chronic kidney disease, stage 3 (moderate); R53.2 Functional quadriplegia; Z20.828 Contact with and (suspected) exposure to other viral communicable diseases; Z68.42 Body mass index [BMI] 45.0-49.9, adult; Z74.01 Bed confinement status; Z79.891 Long term (current) use of opiate analgesic; Z79.899 Other long term (current) drug therapy; Z86.74 Personal history of sudden cardiac arrest; Z87.440 Personal history of urinary (tract) infections; Z87.891 Personal history of nicotine dependence; Z93.3 Colostomy status; Z93.59 Other cystostomy status; Z99.11 Dependence on respirator [ventilator] status; Z99.2 Dependence on renal dialysis
CPT/HCPCS: 36415; 71045; 74177; 80048; 80053; 81001; 83036; 83605; 84145; 85025; 87040; 87077; 87086; 87102; 87186; 87635; 93308; G0378; J1170; J1644; J1650; J2405; J2543; Q9967; J1940; J7030

== ENCOUNTER 2020-07-13 23:48 | Emergency (ER) | payer MEDICAID ==
[~2020-07-13] VITALS: Ht 185.4 cm; Wt 164.0 kg
[~2020-07-13 23:48] MED LIST changes: +LEVO750T26 PO
[2020-07-14] MEDS ORDERED: MORPHINE SULFATE 4 MG/ML, 1ML IVPush PRN
[2020-07-14] MEDS ORDERED: ONDANSETRON 2MG/ML, 2ML IVPush ONE
[2020-07-14] MEDS ORDERED: ONDANSETRON 2MG/ML, 2ML ONE (00:15)
[2020-07-14] MEDS ORDERED: HYDROmorphone 1 MG/ML, 1ML INJ ONE ×2 (00:15→00:46)
--- NOTE | 2020-07-14 00:15 | NUR ---
PT RESTING IN [facility] AT THIS TIME. PT ATTACHED TO VS MONITORS. VSS. PT HAS CALL LIGHT WITHIN REACH.
[2020-07-14 00:22] LABS: BASOPHILS # (AUTO) 0.03 x10^3/uL (0-0.1); BASOPHILS % (AUTO) 0 % (0-1); EOSINOPHILS # (AUTO) 0.42 x10^3/uL (0-0.4); EOSINOPHILS % (AUTO) 3 % (1-7); LYMPHOCYTES # (AUTO) 1.45 x10^3/uL (1-3.4); LYMPHOCYTES % (AUTO) 11 % (22-44); MD NO; MEAN CORPUSCULAR HEMOGLOBIN 28.3 pg (27.5-34.5); MEAN CORPUSCULAR HGB CONC 33.2 g/dL (33.2-36.2); MEAN CORPUSCULAR VOLUME 85.2 fL (81-97); MEAN PLATELET VOLUME 8.7 fL (7.4-10.4); MONOCYTES % (AUTO) 3 % (2-9); NEUTROPHILS # (AUTO) 11.53 x10^3/uL (1.8-6.8); NEUTROPHILS % (AUTO) 83 % (42-75); PLATELET COUNT 291 x10^3/uL (130-400); RED BLOOD COUNT 4.18 x10^6/uL (4.38-5.82); RED CELL DISTRIBUTION WIDTH 16.7 % (9.4-14.8)
[2020-07-14] MEDS: HYDROmorphone 2 MG/ML, 1ML IVPush PRN ×2 (00:23→00:49)
--- NOTE | 2020-07-14 00:23 | NUR ---
PT MEDICATED FOR PAIN AND NAUSEA PER MAR.
[2020-07-14 00:31] LABS: ALBUMIN 2.8 g/dL (3.4-5.0); ANION GAP 6 mmol/L (5-15); CALCIUM 9.2 mg/dL (8.5-10.1); CHLORIDE 114 mmol/L (98-107)
--- NOTE | 2020-07-14 00:49 | NUR ---
PT MEDICATED WITH 2 OF 2 DOSE PAIN MEDS PER JAN. PT VSS AND UPDATED IN EMR AT THIS TIME.
--- NOTE | 2020-07-14 01:39 | NUR ---
BREAK RN: TRANSPORT BACK HOME SET UP THROUGH [facility], ETA [id number]
[2020-07-14 03:00] VITALS: BP 141/81
--- NOTE | 2020-07-14 03:00 | NUR ---
PT RESTING IN [facility] AT THIS TIME AWAITING TRANSPORT HOME.
--- NOTE | 2020-07-14 03:34 | NUR ---
PT D/C WITH D/C SUMMARY AND SCRIPTS WITH [facility] TRANSPORT. REPORT OF PT TO MARK GRACE. PIV D/C WITH TIP INTACT PRIOR TO TRANSPORT OF PT HOME. WAFFLE CUSHION PROVIDED FOR PT FOR HOME USE. PT DENIES ANY OTHER NEEDS PERTAINING TO THIS VISIT.
== END 2020-07-14 03:38 | disposition home or self-care (01) ==
LOC: ED 07-14 03:32
DX: L89.159 Pressure ulcer of sacral region, unspecified stage (principal); I10 Essential (primary) hypertension; E11.9 Type 2 diabetes mellitus without complications; E66.01 Morbid (severe) obesity due to excess calories
CPT/HCPCS: 36415; 80048; 82040; 85025; 86140; 96374; 96375; 99284; J1170; J2405; 96376

== ENCOUNTER 2020-07-16 21:40 | Emergency (ER) | payer MEDICAID ==
[~2020-07-16] VITALS: Ht 185.4 cm; Wt 157.0 kg
--- NOTE | 2020-07-16 21:42 | NUR ---
BROUGHT IN BY [facility], PATIENT CRYING IN PAIN. PATIENT PARAPALEGIC, TRANSFERED TO [facility] IN [facility].
[2020-07-16] MEDS ORDERED: HYDROmorphone 1 MG/ML, 1ML INJ IM ONE (22:00)
[2020-07-16] MEDS ORDERED: HYDROmorphone 1 MG/ML, 1ML INJ ONE (22:10)
--- NOTE | 2020-07-16 22:22 | NUR ---
PATIENT MEDICATED PER EMAR, ON CONTINUOUS PULSE OX AND BP
[2020-07-16] MEDS ORDERED: KETOROLAC 60 MG/2 ML ONE (22:38)
[2020-07-16] MEDS ORDERED: KETOROLAC 30 MG/1 ML IM ONE (23:00)
[2020-07-17 00:27] VITALS: BP 115/73
== END 2020-07-17 00:28 | disposition home or self-care (01) ==
LOC: ED 22:22
DX: M79.671 Pain in right foot (principal); M79.672 Pain in left foot; G62.9 Polyneuropathy, unspecified; I10 Essential (primary) hypertension; E11.9 Type 2 diabetes mellitus without complications; Z93.0 Tracheostomy status
CPT/HCPCS: 96372; 99285; J1170; J1885

== ENCOUNTER 2020-08-10 18:30 | Emergency (ER) | payer MEDICAID ==
[~2020-08-10] VITALS: Ht 182.9 cm; Wt 168.4 kg
[~2020-08-10 18:30] MED LIST changes: -PANT40TA5 PO; +PANT40TA6 PO
--- NOTE | 2020-08-10 18:40 | NUR ---
PT BIB [facility] FROM HOME FOR INCREASED PAIN D/C CHRONIC SACRAL PRESSURE ULCER. PER PT AND EMS, PT HASN'T BEEN ABLE TO GET AN APPOINTMENT WITH A PAIN SPECIALIST OR HIS SPINE MD AND WAS TOLD TO COME TO THE ED. PT IS BED/WHEELCHAIR BOUND, NON-AMBULATORY. COMES WITH HIS OWN WAFFLE MATTRESS. MORBIDLY OBESE AND VERY WEAK SINCE BEING ON A VENTILATOR FOR SEVERAL MONTHS LAST YEAR. A&OX4, VSS, NO OTHER COMPLAINTS.
[2020-08-10] MEDS ORDERED: PLEASE ENTER HEIGHT AND WEIGHT MC SCH (19:00)
[2020-08-10] MEDS ORDERED: OXYcodone/APAP 5/325MG TABLET PO ONE ×2 (19:00→20:30)
[2020-08-10] MEDS ORDERED: OXYcodone/APAP 5/325MG TABLET ONE ×2 (19:04→20:27)
--- NOTE | 2020-08-10 19:05 | NUR ---
PT MEDICATED PER ORDERS. WILL ARRANGE MEDICAL TRANSPORT FOR PT BACK HOME.
--- NOTE | 2020-08-10 20:30 | NUR ---
PT WAS CRYING IN PAIN AGAIN D/T SACRAL WOUND. ERP NOTIFIED, PT MEDICATED WITH ANOTHER DOSE OF PERCOCET.
[2020-08-10 20:31] VITALS: BP 109/64
--- NOTE | 2020-08-10 21:40 | NUR ---
THROUGHPUT RN ON HOLD WITH [facility], TRYING TO ARRANGE MEDICAL TRANSPORT.
--- NOTE | 2020-08-10 22:00 | NUR ---
PT DECLINES REPOSITIONING BY STAFF. STATES HE'S ABLE TO SHIFT HIS WEIGHT SIDE TO SIDE ON WAFFLE MATTRESS IN [facility]. DUQUE CATH EMPTIED. NO OTHER NEEDS AT THIS TIME. PT WATCHING TV, AWAITING TRANSPORT.
--- NOTE | 2020-08-10 22:55 | NUR ---
REPORTED TO EMS. PT TRANSPORTED BACK HOME VIA [facility]. EXTRA WAFFLE MATTRESS PROVIDED TO PT PER HIS REQUEST.
== END 2020-08-10 22:59 | disposition home or self-care (01) ==
LOC: ED 18:49
DX: M79.10 Myalgia, unspecified site (principal); I10 Essential (primary) hypertension; E11.9 Type 2 diabetes mellitus without complications
CPT/HCPCS: 99283

== ENCOUNTER 2020-12-22 22:43 | Inpatient (IN) | payer MEDICAID ==
[~2020-12-22] VITALS: Ht 185.4 cm; Wt 171.9 kg
[~2020-12-22 22:43] MED LIST changes: -OXYC5TAB3 PO; +OXYC5TAB98 PO
[2020-12-22] MEDS ORDERED: PIPERACILLIN/TAZO/PMX 3.375GM 50 ML ONE (22:56)
[2020-12-22] MEDS ORDERED: ACETAMINOPHEN 500 MG TABLET ONE (22:56)
[2020-12-22] MEDS ORDERED: ACETAMINOPHEN 500 MG TABLET PO ONE (23:00)
[2020-12-22] MEDS ORDERED: SODIUM CHLORIDE FLUSH 10ML SYR IVF ONE (23:00)
[2020-12-22] MEDS ORDERED: VANCOMYCIN PER PHARMACY MC PRN (23:00)
[2020-12-22] MEDS ORDERED: PIPERACILLIN/TAZO/PMX 3.375GM 50 ML IV ONE (23:00)
[2020-12-22] MEDS ORDERED: SODIUM CHLORIDE 0.9% 1,000ML IVBOLUS ONE (23:00)
--- NOTE | 2020-12-22 23:21 | NUR ---
pt bib [facility] with c/o sob, pt o2 was 50 % on room air placed on 15 l by [facility] and now on high flow o2, by rt, pt speeking in full sentences, piv x 2 placed in left arm lab x ray and us at bs
[2020-12-22] MEDS ORDERED: PLEASE ENTER HEIGHT AND WEIGHT MC SCH (23:30)
[2020-12-22 23:39] LABS: RAPID INFLUENZA A Negative (Negative); RAPID INFLUENZA B Negative (Negative)
[2020-12-22 23:50] LABS: MEAN CORPUSCULAR HEMOGLOBIN 27.9 pg (27.5-34.5); MEAN CORPUSCULAR HGB CONC 32.4 g/dL (33.2-36.2); PLATELET COUNT 189 x10^3/uL (130-400); RED BLOOD COUNT 5.21 x10^6/uL (4.38-5.82); RED CELL DISTRIBUTION WIDTH 17.2 % (9.4-14.8)
[2020-12-22 23:55] LABS: ALBUMIN 2.2 g/dL (3.4-5.0); ANION GAP 8 mmol/L (5-15); CALCIUM 8.2 mg/dL (8.5-10.1); CHLORIDE 103 mmol/L (98-107)
[2020-12-22 23:58] LABS: ALANINE AMINOTRANSFERASE 32 U/L (12-78); ALKALINE PHOSPHATASE 96 U/L (45-117); BILIRUBIN,TOTAL 0.5 mg/dL (0.2-1.0); CREATININE 2.59 mg/dL (0.7-1.3); TOTAL PROTEIN 7.3 g/dL (6.4-8.2)
[2020-12-23 00:05] LABS: TROPONIN I 0.213 ng/mL (0.000-0.045)
--- NOTE | 2020-12-23 00:22 | NUR ---
pt in nad at this time awaiting admit bed
[2020-12-23 00:29] LABS: INTERNATIONAL NORMALIZED RATIO 1.14 (0.93-1.1); PROTHROMBIN TIME 12.1 Seconds (9.6-11.5)
[2020-12-23] MEDS ORDERED: VANCOMYCIN 2,500 MG in SODIUM CHLORIDE 0.9% 500 ML IV ONE (00:30)
[2020-12-23 00:31] LABS: MD YES
[2020-12-23 00:33] LABS: <PLATELET ESTIMATE> ADEQUATE; <PLT MORPHOLOGY> NORMAL PLT MORPH; ANISOCYTOSIS 1+; BAND#(MANUAL) 1.31 x10^3/uL; BANDS%(MANUAL) 9 % (0-7); HYPOCHROMIA 1+; LYMPH#(MANUAL) 0.44 x10^3/uL (1-3.4); LYMPHS% (MANUAL) 3 % (22-44); METAMYELOCYTES# (MANUAL) 0.15 x10^3/uL (0-0); METAMYELOCYTES% (MANUAL) 1 % (0-1); MONOS#(MANUAL) 0.87 x10^3/uL (0.3-2.7); MONOS% (MANUAL) 6 % (2-9); POLYCHROMASIA 1+; SEG#(MANUAL) 11.75 x10^3/uL (1.8-6.8); SEGS% (MANUAL) 81 % (42-75); TOXIC GRAN 1+
[2020-12-23 00:34] LABS: MICROSCOPIC INDICATED
--- NOTE | 2020-12-23 00:36 | NUR ---
dr mccormack does noty want to infuse any more ivf due to bnp elevated
[2020-12-23] MEDS ORDERED: ASPIRIN 81 MG TABLET CHEW ONE (00:39)
[2020-12-23] MEDS ORDERED: ASPIRIN 325 MG TABLET ONE (00:40)
[2020-12-23] MEDS ORDERED: ASPIRIN 325 MG TABLET PO ONE (01:00)
--- NOTE | 2020-12-23 01:11 | NUR ---
report to vikram espinosa to floor with tech
[2020-12-23 02:37] VITALS: BP 111/69
[2020-12-23] MEDS ORDERED: PHARMACY MAY ADJ FOR RENAL FX MC PRN (04:00)
[2020-12-23] MEDS ORDERED: VANCOMYCIN PER PHARMACY MC PRN (04:00)
[2020-12-23] MEDS ORDERED: ACETAMINOPHEN 325 MG TABLET PO PRN ×2 (04:00)
[2020-12-23] MEDS ORDERED: LABETALOL 5MG/ML, 20ML IVPush PRN (04:00)
[2020-12-23] MEDS ORDERED: PROCHLORPERAZINE 5 MG/ML, 2ML IVPush PRN (04:00)
[2020-12-23] MEDS ORDERED: SENNA/DOCUSATE TABLET PO PRN (04:00)
[2020-12-23] MEDS ORDERED: PHARMACOKINETIC MONITORING MC PRN (04:30)
[2020-12-23] MEDS: FERROUS SULFATE 325 MG TABLET PO SCH (04:34)
[2020-12-23] MEDS: HEPARIN 5,000 UNITS/ML, 1ML SQ SCH ×3 (04:34→21:10)
[2020-12-23] MEDS: PIPERACILLIN/TAZO/PMX 3.375GM 50 ML IVPB SCH ×3 (06:12→17:12)
[2020-12-23 06:33] LABS: HCT (SEDRATE) 44.2 % (39.2-51.8)
[2020-12-23 06:45] LABS: TROPONIN I 0.346 ng/mL (0.000-0.045)
[2020-12-23 06:46] LABS: C-REACTIVE PROTEIN, QUANT > 19.00 mg/dL (0.02-0.49)
[2020-12-23] MEDS ORDERED: PANTOPRAZOLE 40MG TABLET PO SCH (07:30)
[2020-12-23 07:32] VITALS: BP 116/75
[2020-12-23] MEDS: MAGNESIUM OXIDE 400 MG TABLET PO SCH (09:21)
[2020-12-23] MEDS: GABAPENTIN 300 MG CAPSULE PO SCH ×3 (09:21→21:10)
[2020-12-23] MEDS: DULOXETINE 30 MG CAPSULE.DR PO SCH (09:21)
[2020-12-23] MEDS: BUPROPION 100 MG TABLET PO SCH ×2 (09:21→10:57)
[2020-12-23] MEDS: morphine SULFATE 10 MG/ML, 1ML IVPush PRN ×2 (10:57→15:06)
[2020-12-23] MEDS ORDERED: LACTATED RINGERS 1,000 ML IV SCH (11:00)
[2020-12-23] MEDS: INSULIN LISPRO 100 UNITS/ML, PEN SQ-INSULIN SCH ×3 (12:20→21:14)
[2020-12-23 12:42] VITALS: BP 107/64
[2020-12-23] MEDS ORDERED: INSULIN LISPRO 100 UNITS/ML, PEN SQ-INSULIN ONE (13:00)
[2020-12-23 13:50] LABS: ALANINE AMINOTRANSFERASE 35 U/L (12-78); ANION GAP 10 mmol/L (5-15); CALCIUM 8.2 mg/dL (8.5-10.1); CHLORIDE 100 mmol/L (98-107); CREATININE 3.24 mg/dL (0.7-1.3)
[2020-12-23 13:52] LABS: ALKALINE PHOSPHATASE 93 U/L (45-117); BILIRUBIN,TOTAL 0.7 mg/dL (0.2-1.0); TOTAL PROTEIN 7.5 g/dL (6.4-8.2)
[2020-12-23 13:55] LABS: ACETONE, SERUM Negative (Negative)
[2020-12-23 14:21] LABS: ALBUMIN 2.2 g/dL (3.4-5.0)
[2020-12-23] MEDS ORDERED: LACTATED RINGERS 1,000 ML IVBOLUS ONE (15:30)
[2020-12-23] MEDS ORDERED: ACETAMINOPHEN 650 MG SUPP PR PRN (18:30)
[2020-12-23] MEDS ORDERED: PHARMACY MAY ADJ FOR RENAL FX MC SCH (19:30)
[2020-12-23] MEDS ORDERED: LIDOCAINE-MPF 1%, 2ML ENDO PRN (19:30)
[2020-12-23] MEDS ORDERED: FENTANYL PF 100 MCG/2ML IVPush PRN (19:30)
[2020-12-23] MEDS: SODIUM CHLORIDE 0.9% 1,000 ML IV SCH (21:10)
[2020-12-23] MEDS ORDERED: ETOMIDATE 20 MG/10 ML ONE (23:38)
[2020-12-23] MEDS ORDERED: MIDAZOLAM 1 MG/ML, 5ML ONE (23:38)
[2020-12-23] MEDS ORDERED: PROPOFOL 10 MG/ML, 100ML IV ONE (23:38)
[2020-12-24] MEDS ORDERED: PHENYLEPHRINE 50 MG in SODIUM CHLORIDE 0.9% 245 ML IV PRN
[2020-12-24] MEDS ORDERED: SODIUM CHLORIDE 0.9% 1,000ML IVBOLUS ONE
[2020-12-24] MEDS: PIPERACILLIN/TAZO/PMX 3.375GM 50 ML IVPB SCH ×2 (00:36→06:31)
[2020-12-24] MEDS: PROPOFOL 100 ML IV PRN ×4 (02:00→22:34)
[2020-12-24] MEDS: HEPARIN 5,000 UNITS/ML, 1ML SQ SCH ×3 (04:21→20:45)
[2020-12-24 06:14] LABS: BASOPHILS % (AUTO) 0 % (0-1); EOSINOPHILS % (AUTO) 0 % (1-7); LYMPHOCYTES % (AUTO) 5 % (22-44); MEAN CORPUSCULAR HEMOGLOBIN 27.8 pg (27.5-34.5); MEAN CORPUSCULAR HGB CONC 33.2 g/dL (33.2-36.2); MEAN PLATELET VOLUME 8.7 fL (7.4-10.4); MONOCYTES % (AUTO) 7 % (2-9); NEUTROPHILS % (AUTO) 87 % (42-75); PLATELET COUNT 181 x10^3/uL (130-400); RED BLOOD COUNT 5.03 x10^6/uL (4.38-5.82); RED CELL DISTRIBUTION WIDTH 16.7 % (9.4-14.8)
[2020-12-24 06:17] LABS: MD NO
[2020-12-24 06:30] LABS: ALANINE AMINOTRANSFERASE 67 U/L (12-78); ALBUMIN 2.1 g/dL (3.4-5.0); ANION GAP 9 mmol/L (5-15); CALCIUM 8.5 mg/dL (8.5-10.1); CHLORIDE 104 mmol/L (98-107); CREATININE 3.36 mg/dL (0.7-1.3)
[2020-12-24] MEDS: INSULIN LISPRO 100 UNITS/ML, PEN SQ-INSULIN SCH ×4 (06:33→20:46)
[2020-12-24 06:36] LABS: ALKALINE PHOSPHATASE 88 U/L (45-117); BILIRUBIN,TOTAL 1.1 mg/dL (0.2-1.0); TOTAL PROTEIN 7.6 g/dL (6.4-8.2)
[2020-12-24 06:41] LABS: C-REACTIVE PROTEIN, QUANT > 19.00 mg/dL (0.02-0.49)
[2020-12-24] MEDS: SODIUM CHLORIDE 0.9% 1,000 ML IV SCH ×2 (08:49→20:46)
[2020-12-24] MEDS: GABAPENTIN 300 MG CAPSULE PO SCH ×3 (08:54→20:46)
[2020-12-24] MEDS: BUPROPION 100 MG TABLET PO SCH ×2 (08:55→11:39)
[2020-12-24] MEDS: MAGNESIUM OXIDE 400 MG TABLET PO SCH (08:55)
[2020-12-24] MEDS: DULOXETINE 30 MG CAPSULE.DR PO SCH (08:55)
[2020-12-24] MEDS: PANTOPRAZOLE 40 MG IV IV SCH (09:46)
[2020-12-24] MEDS ORDERED: VANCOMYCIN 2,500 MG in SODIUM CHLORIDE 0.9% 500 ML IV ONE (10:00)
[2020-12-24] MEDS: CEFAZOLIN PMX 2GM/50ML 50 ML IVPB SCH (12:02)
[2020-12-25] MEDS: CEFAZOLIN PMX 2GM/50ML 50 ML IVPB SCH ×2 (00:26→12:06)
[2020-12-25] MEDS: PROPOFOL 100 ML IV PRN ×8 (02:35→22:30)
[2020-12-25] MEDS: SODIUM CHLORIDE 0.9% 1,000 ML IV SCH (03:17)
[2020-12-25] MEDS: FERROUS SULFATE 325 MG TABLET PO SCH (04:11)
[2020-12-25] MEDS: HEPARIN 5,000 UNITS/ML, 1ML SQ SCH ×3 (04:11→20:31)
[2020-12-25 06:06] LABS: ALBUMIN 1.8 g/dL (3.4-5.0); ANION GAP 11 mmol/L (5-15); CALCIUM 8.3 mg/dL (8.5-10.1); CHLORIDE 107 mmol/L (98-107); CREATININE 2.94 mg/dL (0.7-1.3)
[2020-12-25 06:07] LABS: BASOPHILS % (AUTO) 1 % (0-1); EOSINOPHILS % (AUTO) 1 % (1-7); LYMPHOCYTES % (AUTO) 8 % (22-44); MEAN CORPUSCULAR HEMOGLOBIN 28.4 pg (27.5-34.5); MEAN CORPUSCULAR HGB CONC 33.8 g/dL (33.2-36.2); MONOCYTES % (AUTO) 7 % (2-9); NEUTROPHILS % (AUTO) 83 % (42-75); PLATELET COUNT 142 x10^3/uL (130-400)
[2020-12-25] MEDS: INSULIN LISPRO 100 UNITS/ML, PEN SQ-INSULIN SCH ×4 (06:13→20:30)
[2020-12-25 06:23] LABS: C-REACTIVE PROTEIN, QUANT > 19.00 mg/dL (0.02-0.49)
[2020-12-25 06:33] LABS: MD NO
[2020-12-25 07:00] LABS: FIO2 50 %
[2020-12-25] MEDS: PANTOPRAZOLE 40 MG IV IV SCH (08:53)
[2020-12-25] MEDS: MAGNESIUM OXIDE 400 MG TABLET PO SCH (08:53)
[2020-12-25] MEDS: GABAPENTIN 300 MG CAPSULE PO SCH ×3 (08:53→20:31)
[2020-12-25] MEDS: BUPROPION 100 MG TABLET PO SCH ×2 (08:53→12:05)
[2020-12-25] MEDS: DULOXETINE 30 MG CAPSULE.DR PO SCH (08:53)
--- NOTE | 2020-12-25 11:46 | NUR ---
TF per RD recs: Vital high protein @80ml/hr (ON propofol); @85ml/hr (off propofol) Addendum: 12/25/20 at [address] Amended: Links added.
[2020-12-25] MEDS ORDERED: SODIUM CHLORIDE 0.9% 1,000 ML IV SCH (19:30)
[2020-12-26] MEDS: CEFAZOLIN PMX 2GM/50ML 50 ML IVPB SCH ×3 (00:01→23:22)
[2020-12-26] MEDS: PROPOFOL 100 ML IV PRN ×3 (00:51→06:26)
[2020-12-26 04:13] LABS: BASOPHILS % (AUTO) 1 % (0-1); EOSINOPHILS % (AUTO) 2 % (1-7); LYMPHOCYTES % (AUTO) 9 % (22-44); MEAN CORPUSCULAR HEMOGLOBIN 27.5 pg (27.5-34.5); MEAN CORPUSCULAR HGB CONC 32.7 g/dL (33.2-36.2); MEAN PLATELET VOLUME 8.9 fL (7.4-10.4); MONOCYTES % (AUTO) 9 % (2-9); NEUTROPHILS % (AUTO) 79 % (42-75); PLATELET COUNT 150 x10^3/uL (130-400); RED BLOOD COUNT 4.39 x10^6/uL (4.38-5.82); RED CELL DISTRIBUTION WIDTH 17.4 % (9.4-14.8)
[2020-12-26 04:14] LABS: MD NO
[2020-12-26] MEDS: HEPARIN 5,000 UNITS/ML, 1ML SQ SCH ×3 (04:17→19:29)
[2020-12-26 06:28] LABS: ANION GAP 11 mmol/L (5-15); CALCIUM 8.2 mg/dL (8.5-10.1); CHLORIDE 110 mmol/L (98-107); CREATININE 2.23 mg/dL (0.7-1.3)
[2020-12-26] MEDS: GABAPENTIN 300 MG CAPSULE PO SCH ×3 (08:45→19:29)
[2020-12-26] MEDS: BUPROPION 100 MG TABLET PO SCH ×2 (08:45→12:00)
[2020-12-26] MEDS: PANTOPRAZOLE 40 MG IV IV SCH (08:45)
[2020-12-26] MEDS: MAGNESIUM OXIDE 400 MG TABLET PO SCH (08:47)
[2020-12-26] MEDS: DULOXETINE 30 MG CAPSULE.DR PO SCH (08:47)
[2020-12-26] MEDS: INSULIN LISPRO 100 UNITS/ML, PEN SQ-INSULIN SCH ×3 (08:50→19:29)
[2020-12-26] MEDS: LINEZOLID PMX 600MG/300ML 300 ML IV SCH (12:28)
[2020-12-26] MEDS: morphine SULFATE 10 MG/ML, 1ML IVPush PRN ×4 (12:53→23:22)
[2020-12-26] MEDS: HYDROcodone/APAP 5/325 TABLET PO PRN (21:42)
[2020-12-27] MEDS: LINEZOLID PMX 600MG/300ML 300 ML IV SCH (00:14)
[2020-12-27] MEDS: HYDROcodone/APAP 5/325 TABLET PO PRN (01:49)
[2020-12-27] MEDS: morphine SULFATE 10 MG/ML, 1ML IVPush PRN ×6 (03:18→20:53)
[2020-12-27] MEDS: INSULIN LISPRO 100 UNITS/ML, PEN SQ-INSULIN SCH ×4 (04:07→19:58)
[2020-12-27] MEDS: HEPARIN 5,000 UNITS/ML, 1ML SQ SCH ×3 (04:08→19:56)
[2020-12-27] MEDS: FERROUS SULFATE 325 MG TABLET PO SCH (04:08)
[2020-12-27 05:53] LABS: BASOPHILS % (AUTO) 1 % (0-1); EOSINOPHILS % (AUTO) 2 % (1-7); LYMPHOCYTES % (AUTO) 9 % (22-44); MD NO; MEAN CORPUSCULAR HEMOGLOBIN 27.8 pg (27.5-34.5); MEAN CORPUSCULAR HGB CONC 33.2 g/dL (33.2-36.2); MEAN PLATELET VOLUME 8.8 fL (7.4-10.4); MONOCYTES % (AUTO) 8 % (2-9); NEUTROPHILS % (AUTO) 80 % (42-75); PLATELET COUNT 165 x10^3/uL (130-400); RED BLOOD COUNT 4.33 x10^6/uL (4.38-5.82); RED CELL DISTRIBUTION WIDTH 16.9 % (9.4-14.8)
[2020-12-27 06:06] LABS: ANION GAP 7 mmol/L (5-15); CALCIUM 8.4 mg/dL (8.5-10.1); CHLORIDE 108 mmol/L (98-107)
[2020-12-27 06:13] LABS: ALANINE AMINOTRANSFERASE 19 U/L (12-78); ALKALINE PHOSPHATASE 87 U/L (45-117); BILIRUBIN,TOTAL 0.9 mg/dL (0.2-1.0); CREATININE 1.84 mg/dL (0.7-1.3); TOTAL PROTEIN 6.5 g/dL (6.4-8.2)
[2020-12-27] MEDS ORDERED: POTASSIUM CHLORIDE 20 MEQ in SODIUM CHLORIDE 0.9% 250 ML IV ONE (08:00)
[2020-12-27] MEDS: POTASSIUM CHLORIDE 20 MEQ in LACTATED RINGERS 1,000 ML IV SCH ×2 (08:27→18:19)
[2020-12-27] MEDS: CEFTAROLINE 600 MG in SODIUM CHLORIDE 0.9% 100 ML IV SCH ×2 (08:32→20:10)
[2020-12-27] MEDS: PANTOPRAZOLE 40 MG IV IV SCH (08:36)
[2020-12-27] MEDS: MAGNESIUM OXIDE 400 MG TABLET PO SCH (08:47)
[2020-12-27] MEDS: GABAPENTIN 300 MG CAPSULE PO SCH ×3 (08:47→19:56)
[2020-12-27] MEDS: BUPROPION 100 MG TABLET PO SCH ×2 (08:47→11:21)
[2020-12-27] MEDS: DULOXETINE 30 MG CAPSULE.DR PO SCH (08:49)
[2020-12-27] MEDS ORDERED: PROPOFOL 10 MG/ML, 20ML ONE (12:58)
[2020-12-28] MEDS: morphine SULFATE 10 MG/ML, 1ML IVPush PRN ×5 (00:48→21:34)
[2020-12-28] MEDS: POTASSIUM CHLORIDE 20 MEQ in LACTATED RINGERS 1,000 ML IV SCH (04:30)
[2020-12-28] MEDS: HEPARIN 5,000 UNITS/ML, 1ML SQ SCH ×3 (04:31→21:11)
[2020-12-28] MEDS: INSULIN LISPRO 100 UNITS/ML, PEN SQ-INSULIN SCH ×4 (04:32→21:15)
[2020-12-28 04:42] LABS: BASOPHILS % (AUTO) 1 % (0-1); EOSINOPHILS % (AUTO) 3 % (1-7); LYMPHOCYTES % (AUTO) 15 % (22-44); MEAN CORPUSCULAR HEMOGLOBIN 27.8 pg (27.5-34.5); MEAN PLATELET VOLUME 8.4 fL (7.4-10.4); MONOCYTES % (AUTO) 9 % (2-9); NEUTROPHILS % (AUTO) 72 % (42-75); PLATELET COUNT 163 x10^3/uL (130-400); RED BLOOD COUNT 4.13 x10^6/uL (4.38-5.82); RED CELL DISTRIBUTION WIDTH 17.2 % (9.4-14.8)
[2020-12-28 04:44] LABS: ALBUMIN 1.9 g/dL (3.4-5.0); ANION GAP 5 mmol/L (5-15); CALCIUM 8.4 mg/dL (8.5-10.1); CHLORIDE 113 mmol/L (98-107)
[2020-12-28 04:53] LABS: ALANINE AMINOTRANSFERASE 22 U/L (12-78); ALKALINE PHOSPHATASE 84 U/L (45-117); BILIRUBIN,TOTAL 0.6 mg/dL (0.2-1.0); CREATININE 1.43 mg/dL (0.7-1.3); TOTAL PROTEIN 6.5 g/dL (6.4-8.2)
[2020-12-28 05:28] LABS: MD SCAN
[2020-12-28] MEDS: MAGNESIUM OXIDE 400 MG TABLET PO SCH (08:30)
[2020-12-28] MEDS: CEFTAROLINE 600 MG in SODIUM CHLORIDE 0.9% 100 ML IV SCH ×2 (08:30→16:18)
[2020-12-28] MEDS: GABAPENTIN 300 MG CAPSULE PO SCH ×3 (08:31→21:12)
[2020-12-28] MEDS: DULOXETINE 30 MG CAPSULE.DR PO SCH (08:31)
[2020-12-28] MEDS: BUPROPION 100 MG TABLET PO SCH ×2 (08:31→13:30)
[2020-12-28] MEDS: PANTOPRAZOLE 40 MG IV IV SCH (08:32)
[2020-12-28 16:02] VITALS: BP 114/76
[2020-12-28] MEDS: HYDROcodone/APAP 5/325 TABLET PO PRN (17:55)
[2020-12-28 19:54] VITALS: BP 124/84
[2020-12-29] MEDS: HYDROcodone/APAP 5/325 TABLET PO PRN ×3 (00:48→20:27)
[2020-12-29] MEDS: CEFTAROLINE 600 MG in SODIUM CHLORIDE 0.9% 100 ML IV SCH ×3 (00:48→16:09)
[2020-12-29] MEDS: TRAZODONE 50MG TABLET PO PRN (00:56)
[2020-12-29 03:33] VITALS: BP 107/69
[2020-12-29] MEDS: INSULIN LISPRO 100 UNITS/ML, PEN SQ-INSULIN SCH ×4 (04:00→22:26)
[2020-12-29] MEDS: FERROUS SULFATE 325 MG TABLET PO SCH (05:16)
[2020-12-29] MEDS: PANTOPRAZOLE 40MG TABLET PO SCH (05:16)
[2020-12-29] MEDS: morphine SULFATE 10 MG/ML, 1ML IVPush PRN ×3 (05:17→22:19)
[2020-12-29] MEDS: HEPARIN 5,000 UNITS/ML, 1ML SQ SCH ×3 (05:17→22:19)
[2020-12-29 06:30] LABS: BASOPHILS % (AUTO) 1 % (0-1); EOSINOPHILS % (AUTO) 4 % (1-7); LYMPHOCYTES % (AUTO) 15 % (22-44); MEAN CORPUSCULAR HEMOGLOBIN 27.5 pg (27.5-34.5); MEAN CORPUSCULAR HGB CONC 32.8 g/dL (33.2-36.2); MEAN PLATELET VOLUME 8.1 fL (7.4-10.4); MONOCYTES % (AUTO) 9 % (2-9); NEUTROPHILS % (AUTO) 72 % (42-75); PLATELET COUNT 216 x10^3/uL (130-400); RED BLOOD COUNT 4.26 x10^6/uL (4.38-5.82); RED CELL DISTRIBUTION WIDTH 16.8 % (9.4-14.8)
[2020-12-29 06:36] LABS: ANION GAP 5 mmol/L (5-15); CALCIUM 8.8 mg/dL (8.5-10.1); CHLORIDE 111 mmol/L (98-107); CREATININE 1.37 mg/dL (0.7-1.3)
[2020-12-29 07:44] VITALS: BP 133/83
[2020-12-29 08:07] LABS: MD SCAN
[2020-12-29] MEDS: BUPROPION 100 MG TABLET PO SCH ×2 (08:21→11:40)
[2020-12-29] MEDS: MAGNESIUM OXIDE 400 MG TABLET PO SCH (08:21)
[2020-12-29] MEDS: DULOXETINE 30 MG CAPSULE.DR PO SCH (08:21)
[2020-12-29] MEDS: GABAPENTIN 300 MG CAPSULE PO SCH ×3 (08:21→20:27)
[2020-12-29] MEDS ORDERED: ACETAMINOPHEN 100 ML IVPB ONE (11:30)
[2020-12-29] MEDS ORDERED: LIDODERM 5% PATCH TD ONE (11:36)
[2020-12-29] MEDS: LIDODERM 5% PATCH TD SCH (11:47)
[2020-12-29 16:00] VITALS: BP 127/75
[2020-12-29 19:58] VITALS: BP 151/84
[2020-12-30] MEDS: CEFTAROLINE 600 MG in SODIUM CHLORIDE 0.9% 100 ML IV SCH ×3 (00:31→16:13)
[2020-12-30 01:15] VITALS: BP 111/69
[2020-12-30] MEDS: INSULIN LISPRO 100 UNITS/ML, PEN SQ-INSULIN SCH ×4 (04:54→22:06)
[2020-12-30] MEDS: PANTOPRAZOLE 40MG TABLET PO SCH (05:46)
[2020-12-30] MEDS: HEPARIN 5,000 UNITS/ML, 1ML SQ SCH ×3 (05:46→20:27)
[2020-12-30] MEDS: morphine SULFATE 10 MG/ML, 1ML IVPush PRN ×3 (06:25→20:28)
[2020-12-30 07:00] VITALS: BP 124/85
[2020-12-30 07:18] LABS: BASOPHILS % (AUTO) 1 % (0-1); EOSINOPHILS % (AUTO) 4 % (1-7); HCT (SEDRATE) 34.9 % (39.2-51.8); LYMPHOCYTES % (AUTO) 15 % (22-44); MEAN CORPUSCULAR HEMOGLOBIN 26.8 pg (27.5-34.5); MEAN CORPUSCULAR HGB CONC 31.7 g/dL (33.2-36.2); MEAN PLATELET VOLUME 8.2 fL (7.4-10.4); MONOCYTES % (AUTO) 8 % (2-9); NEUTROPHILS % (AUTO) 72 % (42-75); PLATELET COUNT 261 x10^3/uL (130-400); RED BLOOD COUNT 4.16 x10^6/uL (4.38-5.82); RED CELL DISTRIBUTION WIDTH 16.9 % (9.4-14.8)
[2020-12-30 07:24] LABS: ALANINE AMINOTRANSFERASE 18 U/L (12-78); ALBUMIN 2.2 g/dL (3.4-5.0); CALCIUM 8.8 mg/dL (8.5-10.1); CREATININE 1.41 mg/dL (0.7-1.3)
[2020-12-30 07:32] LABS: ALKALINE PHOSPHATASE 82 U/L (45-117); BILIRUBIN,TOTAL 0.5 mg/dL (0.2-1.0); TOTAL PROTEIN 6.8 g/dL (6.4-8.2)
[2020-12-30 07:37] LABS: ANION GAP 7 mmol/L (5-15); CHLORIDE 112 mmol/L (98-107)
[2020-12-30 08:06] LABS: MD SCAN
[2020-12-30] MEDS: BUPROPION 100 MG TABLET PO SCH ×2 (08:14→11:36)
[2020-12-30] MEDS: DULOXETINE 30 MG CAPSULE.DR PO SCH (08:14)
[2020-12-30] MEDS: GABAPENTIN 300 MG CAPSULE PO SCH ×3 (08:15→20:28)
[2020-12-30] MEDS: HYDROcodone/APAP 5/325 TABLET PO PRN ×2 (08:15→17:17)
[2020-12-30] MEDS: MAGNESIUM OXIDE 400 MG TABLET PO SCH (08:15)
[2020-12-30] MEDS: OxyconTIN ER 15 MG TAB.ER PO SCH ×2 (10:01→22:06)
[2020-12-30] MEDS: LIDODERM 5% PATCH TD SCH (10:01)
[2020-12-30 13:08] VITALS: BP 112/70
[2020-12-30 18:41] VITALS: BP 112/71
[2020-12-31] MEDS: CEFTAROLINE 600 MG in SODIUM CHLORIDE 0.9% 100 ML IV SCH ×3 (00:05→16:21)
[2020-12-31 00:11] VITALS: BP 118/74
[2020-12-31] MEDS: INSULIN LISPRO 100 UNITS/ML, PEN SQ-INSULIN SCH ×4 (04:07→21:55)
[2020-12-31] MEDS: FERROUS SULFATE 325 MG TABLET PO SCH (04:07)
[2020-12-31] MEDS: morphine SULFATE 10 MG/ML, 1ML IVPush PRN ×2 (04:13→10:21)
[2020-12-31 04:57] LABS: MEAN CORPUSCULAR HEMOGLOBIN 27.3 pg (27.5-34.5); MEAN CORPUSCULAR HGB CONC 32.6 g/dL (33.2-36.2); MEAN PLATELET VOLUME 7.6 fL (7.4-10.4); PLATELET COUNT 283 x10^3/uL (130-400); RED BLOOD COUNT 4.11 x10^6/uL (4.38-5.82)
[2020-12-31] MEDS: HEPARIN 5,000 UNITS/ML, 1ML SQ SCH ×3 (05:00→21:55)
[2020-12-31] MEDS: PANTOPRAZOLE 40MG TABLET PO SCH (05:00)
[2020-12-31 05:06] LABS: ANION GAP 2 mmol/L (5-15); CHLORIDE 111 mmol/L (98-107); CREATININE 1.34 mg/dL (0.7-1.3)
[2020-12-31 05:54] LABS: MD YES
[2020-12-31 05:57] LABS: ANISOCYTOSIS 1+; BAND#(MANUAL) 0.39 x10^3/uL; BANDS%(MANUAL) 5 % (0-7); EOS#(MANUAL) 0.39 x10^3/uL (0.0-0.4); EOS% (MANUAL) 5 % (1-7); LYMPH#(MANUAL) 1.39 x10^3/uL (1-3.4); LYMPHS% (MANUAL) 18 % (22-44); METAMYELOCYTES# (MANUAL) 0.15 x10^3/uL (0-0); METAMYELOCYTES% (MANUAL) 2 % (0-1); MONOS#(MANUAL) 0.15 x10^3/uL (0.3-2.7); MONOS% (MANUAL) 2 % (2-9); MYELOCYTES# (MANUAL) 0.08 x10^3/uL (0-0); MYELOCYTES% (MANUAL) 1 % (0-0); SEG#(MANUAL) 5.16 x10^3/uL (1.8-6.8); SEGS% (MANUAL) 67 % (42-75)
[2020-12-31 05:58] LABS: <PLATELET ESTIMATE> ADEQUATE; <PLT MORPHOLOGY> NORMAL PLT MORPH; POLYCHROMASIA 1+
[2020-12-31 08:19] VITALS: BP 98/64
[2020-12-31] MEDS: BUPROPION 100 MG TABLET PO SCH ×2 (08:24→12:39)
[2020-12-31] MEDS: MAGNESIUM OXIDE 400 MG TABLET PO SCH (08:24)
[2020-12-31] MEDS: DULOXETINE 30 MG CAPSULE.DR PO SCH (08:25)
[2020-12-31] MEDS: GABAPENTIN 300 MG CAPSULE PO SCH ×3 (08:25→21:55)
[2020-12-31] MEDS: HYDROcodone/APAP 5/325 TABLET PO PRN ×3 (08:27→23:13)
[2020-12-31] MEDS: OxyconTIN ER 15 MG TAB.ER PO SCH ×2 (10:09→21:55)
[2020-12-31] MEDS: LIDODERM 5% PATCH TD SCH (10:11)
[2020-12-31] MEDS ORDERED: FENTANYL PF 100 MCG/2ML ONE (11:43)
[2020-12-31] MEDS ORDERED: NALOXONE 1 MG/ML, 2ML ONE (11:43)
[2020-12-31 12:42] VITALS: BP 158/84
[2020-12-31 19:58] VITALS: BP 112/65
[2020-12-31] MEDS: TRAZODONE 50MG TABLET PO PRN (23:12)
[2021-01-01 00:10] VITALS: BP 128/78
[2021-01-01] MEDS: morphine SULFATE 10 MG/ML, 1ML IVPush PRN (00:24)
[2021-01-01] MEDS: CEFTAROLINE 600 MG in SODIUM CHLORIDE 0.9% 100 ML IV SCH ×3 (00:25→17:34)
[2021-01-01] MEDS: INSULIN LISPRO 100 UNITS/ML, PEN SQ-INSULIN SCH ×4 (05:00→21:22)
[2021-01-01 05:26] LABS: BASOPHILS % (AUTO) 1 % (0-1); EOSINOPHILS % (AUTO) 3 % (1-7); LYMPHOCYTES % (AUTO) 17 % (22-44); MEAN CORPUSCULAR HEMOGLOBIN 27.6 pg (27.5-34.5); MEAN CORPUSCULAR HGB CONC 32.4 g/dL (33.2-36.2); MEAN PLATELET VOLUME 7.6 fL (7.4-10.4); MONOCYTES % (AUTO) 9 % (2-9); NEUTROPHILS % (AUTO) 71 % (42-75); PLATELET COUNT 297 x10^3/uL (130-400); RED BLOOD COUNT 3.87 x10^6/uL (4.38-5.82); RED CELL DISTRIBUTION WIDTH 17.1 % (9.4-14.8)
[2021-01-01 05:30] LABS: MD NO
[2021-01-01] MEDS: HYDROcodone/APAP 5/325 TABLET PO PRN ×2 (06:09→15:09)
[2021-01-01] MEDS: HEPARIN 5,000 UNITS/ML, 1ML SQ SCH ×3 (06:09→21:20)
[2021-01-01] MEDS: PANTOPRAZOLE 40MG TABLET PO SCH (06:10)
[2021-01-01] MEDS ORDERED: MAGNESIUM HYDROXIDE 8%, 30ML UDC PO PRN (08:30)
[2021-01-01] MEDS ORDERED: MAGNESIUM CITRATE 300ML ORAL SOL PO PRN (08:30)
[2021-01-01 08:39] VITALS: BP 125/81
[2021-01-01] MEDS: OxyconTIN ER 15 MG TAB.ER PO SCH ×2 (09:35→21:20)
[2021-01-01] MEDS: DULOXETINE 30 MG CAPSULE.DR PO SCH (09:35)
[2021-01-01] MEDS: GABAPENTIN 300 MG CAPSULE PO SCH ×3 (09:35→21:20)
[2021-01-01] MEDS: BUPROPION 100 MG TABLET PO SCH ×2 (09:35→11:30)
[2021-01-01] MEDS: MAGNESIUM OXIDE 400 MG TABLET PO SCH (09:35)
[2021-01-01] MEDS: MORPHINE SULFATE 4 MG/ML, 1ML IVPush PRN ×2 (11:33→17:35)
[2021-01-01] MEDS: LIDODERM 5% PATCH TD SCH (11:41)
[2021-01-01 12:32] VITALS: BP 120/72
[2021-01-01 19:10] VITALS: BP 102/66
[2021-01-02] MEDS: CEFTAROLINE 600 MG in SODIUM CHLORIDE 0.9% 100 ML IV SCH ×3 (00:26→16:24)
[2021-01-02] MEDS: MORPHINE SULFATE 4 MG/ML, 1ML IVPush PRN ×3 (00:26→22:42)
[2021-01-02 02:21] VITALS: BP 112/67
[2021-01-02] MEDS: PANTOPRAZOLE 40MG TABLET PO SCH (04:49)
[2021-01-02] MEDS: FERROUS SULFATE 325 MG TABLET PO SCH (04:49)
[2021-01-02] MEDS: HYDROcodone/APAP 5/325 TABLET PO PRN ×3 (04:49→17:49)
[2021-01-02] MEDS: HEPARIN 5,000 UNITS/ML, 1ML SQ SCH ×3 (04:50→20:37)
[2021-01-02 05:29] LABS: BASOPHILS % (AUTO) 1 % (0-1); EOSINOPHILS % (AUTO) 3 % (1-7); LYMPHOCYTES % (AUTO) 16 % (22-44); MEAN CORPUSCULAR HEMOGLOBIN 27.2 pg (27.5-34.5); MEAN CORPUSCULAR HGB CONC 31.9 g/dL (33.2-36.2); MEAN PLATELET VOLUME 7.6 fL (7.4-10.4); MONOCYTES % (AUTO) 10 % (2-9); NEUTROPHILS % (AUTO) 70 % (42-75); PLATELET COUNT 266 x10^3/uL (130-400); RED BLOOD COUNT 3.84 x10^6/uL (4.38-5.82); RED CELL DISTRIBUTION WIDTH 17.1 % (9.4-14.8)
[2021-01-02 05:33] LABS: MD NO
[2021-01-02] MEDS: INSULIN LISPRO 100 UNITS/ML, PEN SQ-INSULIN SCH ×4 (07:00→20:38)
[2021-01-02 08:11] VITALS: BP 123/80
[2021-01-02] MEDS: OxyconTIN ER 15 MG TAB.ER PO SCH ×2 (08:14→20:36)
[2021-01-02] MEDS: GABAPENTIN 300 MG CAPSULE PO SCH ×3 (08:14→20:36)
[2021-01-02] MEDS: MAGNESIUM OXIDE 400 MG TABLET PO SCH (08:14)
[2021-01-02] MEDS: DULOXETINE 30 MG CAPSULE.DR PO SCH (08:14)
[2021-01-02] MEDS: BUPROPION 100 MG TABLET PO SCH ×2 (08:14→11:06)
[2021-01-02] MEDS: LIDODERM 5% PATCH TD SCH (11:05)
[2021-01-02] MEDS ORDERED: MORPHINE SULFATE 4 MG/ML, 1ML IVPush PRN ×2 (12:30→18:30)
[2021-01-02 12:56] VITALS: BP 117/77
[2021-01-02] MEDS ORDERED: MORPHINE SULFATE 4 MG/ML, 1ML ONE (15:46)
[2021-01-02 19:37] VITALS: BP 118/72
[2021-01-03] MEDS: CEFTAROLINE 600 MG in SODIUM CHLORIDE 0.9% 100 ML IV SCH ×3 (00:20→16:17)
[2021-01-03] MEDS: HYDROcodone/APAP 5/325 TABLET PO PRN ×4 (00:22→20:27)
[2021-01-03 01:20] VITALS: BP 125/79
[2021-01-03] MEDS: PANTOPRAZOLE 40MG TABLET PO SCH (05:12)
[2021-01-03] MEDS: HEPARIN 5,000 UNITS/ML, 1ML SQ SCH ×3 (05:12→20:27)
[2021-01-03] MEDS: MORPHINE SULFATE 4 MG/ML, 1ML IVPush PRN (05:21)
[2021-01-03 05:29] LABS: BASOPHILS % (AUTO) 1 % (0-1); EOSINOPHILS % (AUTO) 3 % (1-7); LYMPHOCYTES % (AUTO) 16 % (22-44); MEAN CORPUSCULAR HEMOGLOBIN 28.1 pg (27.5-34.5); MEAN CORPUSCULAR HGB CONC 32.8 g/dL (33.2-36.2); MEAN PLATELET VOLUME 7.6 fL (7.4-10.4); MONOCYTES % (AUTO) 9 % (2-9); NEUTROPHILS % (AUTO) 72 % (42-75); PLATELET COUNT 271 x10^3/uL (130-400); RED BLOOD COUNT 3.54 x10^6/uL (4.38-5.82); RED CELL DISTRIBUTION WIDTH 17.1 % (9.4-14.8)
[2021-01-03 05:31] LABS: MD NO
[2021-01-03] MEDS: INSULIN LISPRO 100 UNITS/ML, PEN SQ-INSULIN SCH ×4 (07:00→20:20)
[2021-01-03] MEDS: OxyconTIN ER 15 MG TAB.ER PO SCH ×2 (08:15→20:28)
[2021-01-03] MEDS: DULOXETINE 30 MG CAPSULE.DR PO SCH (08:15)
[2021-01-03] MEDS: MAGNESIUM OXIDE 400 MG TABLET PO SCH (08:16)
[2021-01-03] MEDS: BUPROPION 100 MG TABLET PO SCH ×2 (08:16→11:10)
[2021-01-03] MEDS: GABAPENTIN 300 MG CAPSULE PO SCH ×3 (08:16→20:27)
[2021-01-03 08:18] VITALS: BP 114/73
[2021-01-03] MEDS: LIDODERM 5% PATCH TD SCH (11:10)
[2021-01-03 13:23] VITALS: BP 106/68
[2021-01-03 20:10] VITALS: BP 130/84
[2021-01-03] MEDS: TRAZODONE 50MG TABLET PO PRN (20:26)
[2021-01-04] MEDS: CEFTAROLINE 600 MG in SODIUM CHLORIDE 0.9% 100 ML IV SCH ×2 (00:19→08:36)
[2021-01-04 02:00] VITALS: BP 105/76
[2021-01-04] MEDS: HYDROcodone/APAP 5/325 TABLET PO PRN ×4 (04:54→21:02)
[2021-01-04] MEDS: PANTOPRAZOLE 40MG TABLET PO SCH (04:54)
[2021-01-04] MEDS: FERROUS SULFATE 325 MG TABLET PO SCH (04:54)
[2021-01-04] MEDS: HEPARIN 5,000 UNITS/ML, 1ML SQ SCH ×3 (04:54→21:09)
[2021-01-04 05:28] LABS: MEAN CORPUSCULAR HEMOGLOBIN 27.5 pg (27.5-34.5); MEAN CORPUSCULAR HGB CONC 32.2 g/dL (33.2-36.2); MEAN PLATELET VOLUME 7.7 fL (7.4-10.4); PLATELET COUNT 257 x10^3/uL (130-400); RED BLOOD COUNT 3.65 x10^6/uL (4.38-5.82); RED CELL DISTRIBUTION WIDTH 17.3 % (9.4-14.8)
[2021-01-04 06:06] LABS: MD YES
[2021-01-04 06:07] LABS: BAND#(MANUAL) 0.15 x10^3/uL; BANDS%(MANUAL) 2 % (0-7); LYMPH#(MANUAL) 0.83 x10^3/uL (1-3.4); LYMPHS% (MANUAL) 11 % (22-44); METAMYELOCYTES# (MANUAL) 0.08 x10^3/uL (0-0); METAMYELOCYTES% (MANUAL) 1 % (0-1); MONOS% (MANUAL) 4 % (2-9); SEG#(MANUAL) 6.15 x10^3/uL (1.8-6.8); SEGS% (MANUAL) 82 % (42-75)
[2021-01-04 06:08] LABS: <PLATELET ESTIMATE> ADEQUATE
[2021-01-04 06:09] LABS: <PLT MORPHOLOGY> NORMAL PLT MORPH; ANISOCYTOSIS 1+
[2021-01-04 06:10] LABS: POLYCHROMASIA 1+
[2021-01-04] MEDS: INSULIN LISPRO 100 UNITS/ML, PEN SQ-INSULIN SCH ×4 (07:00→21:09)
[2021-01-04 08:15] VITALS: BP 119/76
[2021-01-04] MEDS: GABAPENTIN 300 MG CAPSULE PO SCH ×3 (08:35→21:01)
[2021-01-04] MEDS: BUPROPION 100 MG TABLET PO SCH ×2 (08:35→11:54)
[2021-01-04] MEDS: DULOXETINE 30 MG CAPSULE.DR PO SCH (08:36)
[2021-01-04] MEDS: MAGNESIUM OXIDE 400 MG TABLET PO SCH (08:36)
[2021-01-04] MEDS: OxyconTIN ER 15 MG TAB.ER PO SCH ×2 (08:36→21:02)
[2021-01-04] MEDS ORDERED: CEFAZOLIN 2,000 MG in SODIUM CHLORIDE 0.9% 50 ML IV SCH (10:00)
[2021-01-04] MEDS: CEFAZOLIN PMX 2GM/50ML 50 ML IVPB SCH ×2 (10:18→17:33)
[2021-01-04] MEDS: LIDODERM 5% PATCH TD SCH (11:55)
[2021-01-04 14:27] VITALS: BP 129/80
[2021-01-04 20:18] VITALS: BP 117/72
[2021-01-04] MEDS: TRAZODONE 50MG TABLET PO PRN (21:01)
[2021-01-05] MEDS: LIDODERM REMOVE PATCH NOTE XX SCH
[2021-01-05] MEDS: HYDROcodone/APAP 5/325 TABLET PO PRN ×5 (02:26→22:19)
[2021-01-05] MEDS: CEFAZOLIN PMX 2GM/50ML 50 ML IVPB SCH ×3 (02:26→18:08)
[2021-01-05 02:27] VITALS: BP 131/80
[2021-01-05 04:17] LABS: BASOPHILS % (AUTO) 1 % (0-1); EOSINOPHILS % (AUTO) 2 % (1-7); LYMPHOCYTES % (AUTO) 15 % (22-44); MEAN CORPUSCULAR HEMOGLOBIN 27.6 pg (27.5-34.5); MEAN CORPUSCULAR HGB CONC 32.6 g/dL (33.2-36.2); MEAN PLATELET VOLUME 7.8 fL (7.4-10.4); MONOCYTES % (AUTO) 9 % (2-9); NEUTROPHILS % (AUTO) 74 % (42-75); PLATELET COUNT 220 x10^3/uL (130-400); RED BLOOD COUNT 3.62 x10^6/uL (4.38-5.82)
[2021-01-05 04:21] LABS: MD NO
[2021-01-05 06:42] VITALS: BP 106/40
[2021-01-05] MEDS: HEPARIN 5,000 UNITS/ML, 1ML SQ SCH ×3 (06:46→22:19)
[2021-01-05] MEDS: PANTOPRAZOLE 40MG TABLET PO SCH (06:46)
[2021-01-05] MEDS: INSULIN LISPRO 100 UNITS/ML, PEN SQ-INSULIN SCH ×4 (07:00→21:00)
[2021-01-05] MEDS: GABAPENTIN 300 MG CAPSULE PO SCH ×3 (08:17→22:19)
[2021-01-05] MEDS: OxyconTIN ER 15 MG TAB.ER PO SCH (08:18)
[2021-01-05] MEDS: DULOXETINE 30 MG CAPSULE.DR PO SCH (08:18)
[2021-01-05] MEDS: BUPROPION 100 MG TABLET PO SCH ×2 (08:18→12:22)
[2021-01-05] MEDS: MAGNESIUM OXIDE 400 MG TABLET PO SCH (08:18)
[2021-01-05] MEDS: LIDODERM 5% PATCH TD SCH (12:16)
[2021-01-05 12:51] VITALS: BP 114/71
[2021-01-05 20:30] VITALS: BP 128/81
[2021-01-05] MEDS: TRAZODONE 50MG TABLET PO PRN (22:21)
[2021-01-06] MEDS: CEFAZOLIN PMX 2GM/50ML 50 ML IVPB SCH (02:29)
[2021-01-06] MEDS: PANTOPRAZOLE 40MG TABLET PO SCH (06:06)
[2021-01-06] MEDS: HEPARIN 5,000 UNITS/ML, 1ML SQ SCH ×3 (06:06→21:09)
[2021-01-06] MEDS: FERROUS SULFATE 325 MG TABLET PO SCH (06:06)
[2021-01-06 06:45] LABS: BASOPHILS % (AUTO) 1 % (0-1); EOSINOPHILS % (AUTO) 3 % (1-7); LYMPHOCYTES % (AUTO) 19 % (22-44); MEAN CORPUSCULAR HEMOGLOBIN 27.9 pg (27.5-34.5); MEAN CORPUSCULAR HGB CONC 32.2 g/dL (33.2-36.2); MEAN PLATELET VOLUME 7.9 fL (7.4-10.4); MONOCYTES % (AUTO) 9 % (2-9); NEUTROPHILS % (AUTO) 68 % (42-75); PLATELET COUNT 210 x10^3/uL (130-400); RED BLOOD COUNT 3.55 x10^6/uL (4.38-5.82); RED CELL DISTRIBUTION WIDTH 17.4 % (9.4-14.8)
[2021-01-06 06:49] LABS: MD NO
[2021-01-06] MEDS: INSULIN LISPRO 100 UNITS/ML, PEN SQ-INSULIN SCH ×4 (07:00→21:11)
[2021-01-06 07:19] VITALS: BP 111/73
[2021-01-06] MEDS: MAGNESIUM OXIDE 400 MG TABLET PO SCH (07:48)
[2021-01-06] MEDS: DULOXETINE 30 MG CAPSULE.DR PO SCH (07:48)
[2021-01-06] MEDS: GABAPENTIN 300 MG CAPSULE PO SCH ×3 (07:48→21:09)
[2021-01-06] MEDS: BUPROPION 100 MG TABLET PO SCH ×2 (07:48→11:49)
[2021-01-06] MEDS: SODIUM CHLORIDE 0.9% IVPB SCH (11:49)
[2021-01-06] MEDS: LIDODERM 5% PATCH TD SCH (11:49)
[2021-01-06] MEDS: DAPTOMYCIN IVPB SCH (11:49)
[2021-01-06] MEDS: HYDROcodone/APAP 5/325 TABLET PO PRN ×3 (11:57→23:09)
[2021-01-06 13:28] LABS: HCT (SEDRATE) 30.1 % (39.2-51.8)
[2021-01-06 13:40] LABS: ALBUMIN 2.3 g/dL (3.4-5.0); ANION GAP 5 mmol/L (5-15); CALCIUM 8.7 mg/dL (8.5-10.1); CHLORIDE 110 mmol/L (98-107)
[2021-01-06 13:48] LABS: ALANINE AMINOTRANSFERASE 9 U/L (12-78); ALKALINE PHOSPHATASE 74 U/L (45-117); BILIRUBIN,TOTAL 0.3 mg/dL (0.2-1.0); CREATINE KINASE, TOTAL 19 U/L (39-308); CREATININE 1.68 mg/dL (0.7-1.3)
[2021-01-06 19:27] VITALS: BP 125/79
[2021-01-06] MEDS: LIDODERM REMOVE PATCH NOTE XX SCH ×2 (23:09)
[2021-01-07 00:57] VITALS: BP 122/80
[2021-01-07] MEDS: PANTOPRAZOLE 40MG TABLET PO SCH (05:01)
[2021-01-07] MEDS: HYDROcodone/APAP 5/325 TABLET PO PRN ×3 (05:01→16:31)
[2021-01-07] MEDS: HEPARIN 5,000 UNITS/ML, 1ML SQ SCH ×2 (05:02→12:32)
[2021-01-07 05:43] LABS: BASOPHILS % (AUTO) 1 % (0-1); EOSINOPHILS % (AUTO) 2 % (1-7); LYMPHOCYTES % (AUTO) 12 % (22-44); MEAN CORPUSCULAR HEMOGLOBIN 27.4 pg (27.5-34.5); MEAN CORPUSCULAR HGB CONC 31.7 g/dL (33.2-36.2); MEAN PLATELET VOLUME 8.1 fL (7.4-10.4); MONOCYTES % (AUTO) 8 % (2-9); NEUTROPHILS % (AUTO) 78 % (42-75); PLATELET COUNT 198 x10^3/uL (130-400); RED BLOOD COUNT 3.71 x10^6/uL (4.38-5.82); RED CELL DISTRIBUTION WIDTH 17.7 % (9.4-14.8)
[2021-01-07 05:46] LABS: MD NO
[2021-01-07 06:31] VITALS: BP 116/73
[2021-01-07] MEDS: INSULIN LISPRO 100 UNITS/ML, PEN SQ-INSULIN SCH ×3 (07:00→16:00)
[2021-01-07] MEDS: GABAPENTIN 300 MG CAPSULE PO SCH ×2 (08:12→16:13)
[2021-01-07] MEDS: BUPROPION 100 MG TABLET PO SCH ×2 (08:12→12:31)
[2021-01-07] MEDS: MAGNESIUM OXIDE 400 MG TABLET PO SCH (08:12)
[2021-01-07] MEDS: DULOXETINE 30 MG CAPSULE.DR PO SCH (08:12)
[2021-01-07] MEDS: SODIUM CHLORIDE 0.9% IVPB SCH (12:31)
[2021-01-07] MEDS: DAPTOMYCIN IVPB SCH (12:31)
[2021-01-07] MEDS: LIDODERM 5% PATCH TD SCH (12:32)
[2021-01-07 13:30] VITALS: BP 129/74
== END 2021-01-07 17:45 | disposition home or self-care (01) | DRG 871 ==
LOC: ED 12-23 00:24 → EDIP 12-23 00:34 → 4EST 12-23 02:22 → CCU 12-23 18:41 → 3N 12-28 09:54
PROVIDERS: ADMIT Family Medicine; ATTEND Internal Medicine
PROC: 0T9B70Z Drainage of Bladder with Drainage Device, Via Natural or Artificial Opening (ICD-10-PCS; principal; 2020-12-23)
PROC: 0BH17EZ Insertion of Endotracheal Airway into Trachea, Via Natural or Artificial Opening (ICD-10-PCS; 2020-12-23)
PROC: 5A1945Z Respiratory Ventilation, 24-96 Consecutive Hours (ICD-10-PCS; 2020-12-23)
PROC: 0BCB8ZZ Extirpation of Matter from Left Lower Lobe Bronchus, Via Natural or Artificial Opening Endoscopic (ICD-10-PCS; 2020-12-23)
PROC: 0BC88ZZ Extirpation of Matter from Left Upper Lobe Bronchus, Via Natural or Artificial Opening Endoscopic (ICD-10-PCS; 2020-12-23)
PROC: 02HV33Z Insertion of Infusion Device into Superior Vena Cava, Percutaneous Approach (ICD-10-PCS; 2020-12-23)
PROC: 0B9B8ZX Drainage of Left Lower Lobe Bronchus, Via Natural or Artificial Opening Endoscopic, Diagnostic (ICD-10-PCS; 2020-12-23)
DX: A41.01 Sepsis due to Methicillin susceptible Staphylococcus aureus (principal); G93.41 Metabolic encephalopathy; I21.9 Acute myocardial infarction, unspecified; J15.9 Unspecified bacterial pneumonia; J96.21 Acute and chronic respiratory failure with hypoxia; J96.22 Acute and chronic respiratory failure with hypercapnia; N17.0 Acute kidney failure with tubular necrosis; E87.1 Hypo-osmolality and hyponatremia; I13.0 Hypertensive heart and chronic kidney disease with heart failure and stage 1 through stage 4 chronic kidney disease, or unspecified chronic kidney disease; I50.20 Unspecified systolic (congestive) heart failure; E66.2 Morbid (severe) obesity with alveolar hypoventilation; Z68.43 Body mass index [BMI] 50.0-59.9, adult; B95.62 Methicillin resistant Staphylococcus aureus infection as the cause of diseases classified elsewhere; E11.22 Type 2 diabetes mellitus with diabetic chronic kidney disease; E11.65 Type 2 diabetes mellitus with hyperglycemia; F17.210 Nicotine dependence, cigarettes, uncomplicated; F44.4 Conversion disorder with motor symptom or deficit; G83.21 Monoplegia of upper limb affecting right dominant side; G89.4 Chronic pain syndrome; L89.159 Pressure ulcer of sacral region, unspecified stage; N18.9 Chronic kidney disease, unspecified; N30.91 Cystitis, unspecified with hematuria; R65.20 Severe sepsis without septic shock; N31.9 Neuromuscular dysfunction of bladder, unspecified; S31.109A Unspecified open wound of abdominal wall, unspecified quadrant without penetration into peritoneal cavity, initial encounter; X58.XXXA Exposure to other specified factors, initial encounter; I95.9 Hypotension, unspecified; Z20.822 Contact with and (suspected) exposure to COVID-19; Z79.4 Long term (current) use of insulin; Z79.891 Long term (current) use of opiate analgesic; Z87.440 Personal history of urinary (tract) infections; Z93.0 Tracheostomy status; Z79.899 Other long term (current) drug therapy; Z86.14 Personal history of Methicillin resistant Staphylococcus aureus infection; Z93.59 Other cystostomy status
CPT/HCPCS: 20225; 31624; 36415; 36573; 36600; 71045; 72040; 72125; 77012; 80048; 80053; 80202; 81001; 82010; 82040; 82550; 82803; 82947; 82962; 83036; 83605; 83735; 83880; 84145; 84478; 84484; 85025; 85610; 85651; 85730; 86140; 87040; 87070; 87075; 87077; 87081; 87086; 87102; 87147; 87176; 87186; 87205; 87400; 88307; 88311; 93005; 93306; 93312; 93321; 93325; 94002; 94003; 94150; 96365; 99291; G0378; J0690; J0712; J0878; J1644; J2020; J2250; J2543; J2704; J3010; J3370; J3480; C1751; C9113; J0780; J1815; J2270; J2310; J2370; J7030; J7040; J7050; J7120; U0003

== ENCOUNTER 2021-06-02 21:12 | Inpatient (IN) | payer MEDICAID ==
[~2021-06-02] VITALS: Ht 185.4 cm; Wt 176.4 kg
[2021-06-02] MEDS ORDERED: ONDANSETRON 2MG/ML, 2ML ONE (21:30)
[2021-06-02] MEDS ORDERED: HYDROmorphone 1 MG/ML, 1ML INJ IM ONE (21:30)
[2021-06-02] MEDS ORDERED: HYDROmorphone 1 MG/ML, 1ML INJ ONE (21:30)
[2021-06-02] MEDS ORDERED: ONDANSETRON 2MG/ML, 2ML IVPush ONE (21:30)
[2021-06-02 22:01] LABS: BASOPHILS % (AUTO) 1 % (0-1); EOSINOPHILS % (AUTO) 1 % (1-7); LYMPHOCYTES % (AUTO) 13 % (22-44); MEAN CORPUSCULAR HEMOGLOBIN 28.3 pg (27.5-34.5); MEAN CORPUSCULAR HGB CONC 33.3 g/dL (33.2-36.2); MEAN PLATELET VOLUME 8.6 fL (7.4-10.4); MONOCYTES % (AUTO) 7 % (2-9); NEUTROPHILS % (AUTO) 78 % (42-75); PLATELET COUNT 234 x10^3/uL (130-400); RED BLOOD COUNT 4.45 x10^6/uL (4.38-5.82); RED CELL DISTRIBUTION WIDTH 15.8 % (9.4-14.8)
[2021-06-02 22:06] LABS: ALANINE AMINOTRANSFERASE 17 U/L (12-78); ALBUMIN 2.4 g/dL (3.4-5.0); ANION GAP 5 mmol/L (5-15); CALCIUM 8.7 mg/dL (8.5-10.1); CHLORIDE 107 mmol/L (98-107); CREATININE 1.34 mg/dL (0.7-1.3)
[2021-06-02 22:08] LABS: ALKALINE PHOSPHATASE 80 U/L (45-117); BILIRUBIN,TOTAL 0.3 mg/dL (0.2-1.0)
--- NOTE | 2021-06-02 22:45 | NUR ---
CC OF RUQ PAIN 10/10 WITH SUDDEN ONSET 2 HRS BEFORE ARRIVAL TO ER. PT STATES HE WAS WATCHING TV WHEN IT STARTED. PT WITH SUPRAPUBIC CATHETER AND RLQ OSTOMY. PT STATES HE IS A FULLY FUNCTIONING PARAPALEDGIC. ON 2 L NC BASELINE. MOANING IN PAIN AND REQUESTING MORE PAIN MEDICATIONS.
--- NOTE | 2021-06-03 00:06 | NUR ---
[facility] - [phone]
[2021-06-03] MEDS ORDERED: CEFTRIAXONE 1,000 MG in DEXTROSE 5% 50 ML IVPB ONE (01:30)
[2021-06-03] MEDS ORDERED: HYDROmorphone 1 MG/ML, 1ML INJ IM ONE (01:30)
--- NOTE | 2021-06-03 01:40 | NUR ---
IV to right wrist with adequate blood return, flushes but pt c/o pain to wrist.
[2021-06-03] MEDS ORDERED: ONDANSETRON 2MG/ML, 2ML ONE ×2 (01:55→14:04)
[2021-06-03] MEDS ORDERED: HYDROmorphone 1 MG/ML, 1ML INJ ONE (01:55)
--- NOTE | 2021-06-03 02:04 | NUR ---
piv placed. md with verbal orders to change from im to iv. verbal order repeated. pt requesting water, educated on waiting for surgeons assessment before fluid admin. pt verbalizes understanding but then will ask again. [facility] dr valiente at bedside
--- NOTE | 2021-06-03 02:18 | NUR ---
suprapubic cather bag with leak, urine all over floor. bonilla bag replaced with sterile bag.
--- NOTE | 2021-06-03 02:19 | NUR ---
report to jayna conner
--- NOTE | 2021-06-03 02:20 | NUR ---
pt also with refusing vitals. pt has ripped off bp cuff multiple times and pulse ox multiple times. pt also ripped off nc and ripped out iv. piv replaced by task rn and nc back in place.
[2021-06-03] MEDS ORDERED: HYDROmorphone 1 MG/ML, 1ML INJ IV ONE (02:30)
[2021-06-03] MEDS ORDERED: LABETALOL 5MG/ML, 20ML IVPush PRN (03:00)
[2021-06-03] MEDS ORDERED: ACETAMINOPHEN 325 MG TABLET PO PRN (03:00)
[2021-06-03] MEDS ORDERED: POLYETHYLENE GLYCOL 17 GM PACKET PO PRN (03:00)
[2021-06-03] MEDS ORDERED: ONDANSETRON 2MG/ML, 2ML IVPush PRN ×2 (03:00→16:00)
[2021-06-03] MEDS ORDERED: MELATONIN 5 MG TABLET PO PRN (03:00)
[2021-06-03] MEDS ORDERED: SODIUM CHLORIDE 0.9% 1,000 ML IV SCH (03:00)
[2021-06-03 03:06] VITALS: BP 136/84
[2021-06-03] MEDS ORDERED: MORP50CA19 PO (03:21)
[2021-06-03] MEDS: CEFTRIAXONE 2 GM in DEXTROSE 5% 50 ML IVPB SCH (03:46)
[2021-06-03] MEDS: morphine SULFATE 10 MG/ML, 1ML IVPush PRN ×3 (05:03→12:40)
[2021-06-03 06:37] VITALS: BP 151/99
[2021-06-03 13:10] VITALS: BP 148/85
[2021-06-03] MEDS ORDERED: BUPIVACAINE/PF 0.5% ONE (13:23)
[2021-06-03] MEDS ORDERED: EPINEPHRINE 1 MG/ML, 1ML ONE (13:23)
[2021-06-03] MEDS ORDERED: FENTANYL PF 250 MCG/5ML ONE (13:30)
[2021-06-03] MEDS ORDERED: MIDAZOLAM 1 MG/ML, 2ML ONE (13:30)
[2021-06-03] MEDS ORDERED: CHLORHEXIDINE 15 ML UDC ONE (13:33)
[2021-06-03] MEDS ORDERED: CHLORHEXIDINE 15 ML UDC PO ONE (14:00)
[2021-06-03] MEDS ORDERED: PROPOFOL 10 MG/ML, 20ML ONE (14:04)
[2021-06-03] MEDS ORDERED: DEXAMETHASONE 4 MG/ML, 1ML ONE (14:04)
[2021-06-03] MEDS ORDERED: ROCURONIUM 10 MG/ML,10ML ONE (14:04)
[2021-06-03] MEDS ORDERED: SUGAMMADEX 200 MG/2 ML IVPush ONE (14:04)
[2021-06-03] MEDS ORDERED: CEFOTETAN 2 GM ONE (14:04)
[2021-06-03] MEDS ORDERED: ALBUTEROL SULFATE 2.5 MG/3 ML NPPB PRN (16:00)
[2021-06-03] MEDS ORDERED: LABETALOL 5MG/ML, 20ML IV PRN (16:00)
[2021-06-03] MEDS ORDERED: EPHEDRINE 50 MG/ML, 1ML IVPush PRN (16:00)
[2021-06-03] MEDS ORDERED: PROMETHAZINE 25 MG/ML, 1ML IVPush PRN (16:00)
[2021-06-03] MEDS ORDERED: OXYcodone 5 MG/5 ML ORAL.SOL UDC PO PRN (16:00)
[2021-06-03] MEDS ORDERED: MIDAZOLAM 1 MG/ML, 2ML IV PRN (16:00)
[2021-06-03] MEDS ORDERED: DIAZEPAM 5 MG/ML, 2ML IVPush PRN (16:00)
[2021-06-03] MEDS ORDERED: DIPHENHYDRAMINE 50 MG/ML, 1ML IVPush PRN ×2 (16:00)
[2021-06-03] MEDS ORDERED: PROMETHAZINE 12.5 MG SUPP PR PRN (16:00)
[2021-06-03] MEDS ORDERED: MEPERIDINE/PF 25MG/0.5ML IVPush PRN (16:00)
[2021-06-03] MEDS ORDERED: hydrALAzine 20 MG/ML, 1ML IV PRN ×2 (16:00→18:30)
[2021-06-03] MEDS ORDERED: OXYcodone 5 MG/5 ML ORAL.SOL UDC ONE (16:31)
[2021-06-03] MEDS ORDERED: HYDROmorphone 2 MG/ML, 1ML ONE (16:31)
[2021-06-03] MEDS ORDERED: FENTANYL PF 100 MCG/2ML ONE ×2 (16:31→16:45)
[2021-06-03] MEDS: FENTANYL PF 100 MCG/2ML IV PRN ×3 (16:38→16:50)
[2021-06-03] MEDS: HYDROmorphone 1 MG/ML, 1ML INJ IVPush PRN ×4 (16:39→16:55)
[2021-06-03] MEDS ORDERED: hydrALAzine 20 MG/ML, 1ML ONE (16:57)
[2021-06-03] MEDS ORDERED: LORazepam 2 MG/ML, 1ML IV PRN (18:30)
[2021-06-03] MEDS ORDERED: KETOROLAC 30 MG/1 ML IV PRN (18:30)
[2021-06-03] MEDS ORDERED: LORazepam 1MG TABLET PO PRN (18:30)
[2021-06-03] MEDS ORDERED: ONDANSETRON 2MG/ML, 2ML IV PRN (18:30)
[2021-06-03] MEDS ORDERED: DIPHENHYDRAMINE 25 MG CAPSULE PO PRN (18:30)
[2021-06-03] MEDS ORDERED: ENALAPRILAT 1.25 MG/ML, 2ML IV PRN (18:30)
[2021-06-03] MEDS ORDERED: ACETAMINOPHEN 650 MG SUPP PR PRN (18:30)
[2021-06-03] MEDS ORDERED: DIPHENHYDRAMINE 50 MG/ML, 1ML IV PRN (18:30)
[2021-06-03] MEDS: HYDROmorphone 2 MG/ML, 1ML IVPush PRN ×3 (19:48→22:51)
[2021-06-03] MEDS: SODIUM CHLORIDE FLUSH 10ML SYR IVF SCH (19:48)
[2021-06-03 19:57] VITALS: BP 148/92
[2021-06-03] MEDS ORDERED: SODIUM CHLORIDE 0.9% 1,000ML IVBOLUS ONE (21:00)
[2021-06-03] MEDS: INSULIN LISPRO 100 UNITS/ML, PEN SQ-INSULIN SCH (22:21)
[2021-06-04] MEDS: HYDROmorphone 2 MG/ML, 1ML IVPush PRN ×5 (01:07→19:47)
[2021-06-04 01:32] VITALS: BP 163/96
[2021-06-04 02:09] LABS: BASOPHILS % (AUTO) 0 % (0-1); EOSINOPHILS % (AUTO) 0 % (1-7); LYMPHOCYTES % (AUTO) 5 % (22-44); MEAN CORPUSCULAR HEMOGLOBIN 28.3 pg (27.5-34.5); MEAN CORPUSCULAR HGB CONC 32.7 g/dL (33.2-36.2); MEAN PLATELET VOLUME 8.6 fL (7.4-10.4); MONOCYTES % (AUTO) 3 % (2-9); NEUTROPHILS % (AUTO) 91 % (42-75); PLATELET COUNT 245 x10^3/uL (130-400); RED BLOOD COUNT 4.44 x10^6/uL (4.38-5.82); RED CELL DISTRIBUTION WIDTH 15.7 % (9.4-14.8)
[2021-06-04] MEDS: INSULIN LISPRO 100 UNITS/ML, PEN SQ-INSULIN SCH ×4 (02:10→21:01)
[2021-06-04 02:13] LABS: ANION GAP 2 mmol/L (5-15); CALCIUM 8.8 mg/dL (8.5-10.1); CHLORIDE 102 mmol/L (98-107); CREATININE 1.46 mg/dL (0.7-1.3)
[2021-06-04 02:14] VITALS: BP 138/84
[2021-06-04] MEDS: OXYcodone/APAP 5/325MG TABLET PO PRN ×4 (02:23→22:06)
[2021-06-04] MEDS: CEFTRIAXONE 2 GM in DEXTROSE 5% 50 ML IVPB SCH (04:16)
[2021-06-04 08:26] VITALS: BP 140/81
[2021-06-04] MEDS: SODIUM CHLORIDE FLUSH 10ML SYR IVF SCH ×2 (09:45→19:51)
[2021-06-04] MEDS: ENOXAPARIN 40 MG/0.4 ML SQ SCH (09:45)
[2021-06-04 14:30] VITALS: BP 144/88
[2021-06-04 19:39] VITALS: BP 131/77
[2021-06-04] MEDS ORDERED: INSULIN LISPRO 100 UNITS/ML, PEN SQ-INSULIN ONE (23:30)
[2021-06-05 02:17] VITALS: BP 151/85
[2021-06-05] MEDS: OXYcodone/APAP 5/325MG TABLET PO PRN ×4 (02:19→20:18)
[2021-06-05] MEDS: CEFTRIAXONE 2 GM in DEXTROSE 5% 50 ML IVPB SCH (03:00)
[2021-06-05 06:01] LABS: ALBUMIN 2.3 g/dL (3.4-5.0); CHLORIDE 103 mmol/L (98-107)
[2021-06-05 06:03] LABS: ANION GAP 3 mmol/L (5-15); CALCIUM 8.9 mg/dL (8.5-10.1); CREATININE 1.14 mg/dL (0.7-1.3)
[2021-06-05 06:06] LABS: BASOPHILS % (AUTO) 1 % (0-1); EOSINOPHILS % (AUTO) 2 % (1-7); LYMPHOCYTES % (AUTO) 12 % (22-44); MEAN CORPUSCULAR HEMOGLOBIN 28.2 pg (27.5-34.5); MEAN CORPUSCULAR HGB CONC 32.5 g/dL (33.2-36.2); MEAN PLATELET VOLUME 8.7 fL (7.4-10.4); MONOCYTES % (AUTO) 6 % (2-9); NEUTROPHILS % (AUTO) 79 % (42-75); PLATELET COUNT 264 x10^3/uL (130-400); RED BLOOD COUNT 4.14 x10^6/uL (4.38-5.82); RED CELL DISTRIBUTION WIDTH 15.5 % (9.4-14.8)
[2021-06-05 06:38] VITALS: BP 138/81
[2021-06-05] MEDS: ENOXAPARIN 40 MG/0.4 ML SQ SCH (07:57)
[2021-06-05] MEDS: INSULIN LISPRO 100 UNITS/ML, PEN SQ-INSULIN SCH ×4 (07:58→20:51)
[2021-06-05] MEDS: SODIUM CHLORIDE FLUSH 10ML SYR IVF SCH ×2 (07:58→20:17)
[2021-06-05 12:09] VITALS: BP 128/77
[2021-06-05 20:21] VITALS: BP 143/85
== END 2021-06-05 23:03 | disposition home or self-care (01) | DRG 418 ==
LOC: ED 21:57 → EDIP 06-03 02:13 → 3N 06-03 02:39
PROVIDERS: ADMIT Family Medicine; ATTEND Family Medicine
PROC: 0FT44ZZ Resection of Gallbladder, Percutaneous Endoscopic Approach (ICD-10-PCS; principal; 2021-06-03 15:00)
DX: K81.0 Acute cholecystitis (principal); Z68.43 Body mass index [BMI] 50.0-59.9, adult; I13.0 Hypertensive heart and chronic kidney disease with heart failure and stage 1 through stage 4 chronic kidney disease, or unspecified chronic kidney disease; D64.9 Anemia, unspecified; E11.22 Type 2 diabetes mellitus with diabetic chronic kidney disease; E11.65 Type 2 diabetes mellitus with hyperglycemia; E66.01 Morbid (severe) obesity due to excess calories; F17.210 Nicotine dependence, cigarettes, uncomplicated; Z20.822 Contact with and (suspected) exposure to COVID-19; F44.4 Conversion disorder with motor symptom or deficit; G89.29 Other chronic pain; I50.9 Heart failure, unspecified; J44.9 Chronic obstructive pulmonary disease, unspecified; L89.159 Pressure ulcer of sacral region, unspecified stage; N18.9 Chronic kidney disease, unspecified; N31.9 Neuromuscular dysfunction of bladder, unspecified; Z93.3 Colostomy status
CPT/HCPCS: 36415; 96372; 96374; 96375; 99285; S0020; 71045; 76700; 80048; 80053; 80069; 82947; 82962; 83036; 83690; 83735; 85025; 87635; 88304; 93005; G0378; J0171; J0696; J1100; J1170; J1650; J1885; J2250; J2405; J2704; J3010; J0360; J1815; J2270; J7030